=== PATIENT | male | born 1970 | race Caucasian/White ===

== ENCOUNTER 2018-07-04 11:12 | Inpatient (IN) | payer BC, OTHER ==
[2018-07-04 11:39] LABS: Glucose,Whole Blood 377 mg/dL (75-99)
[2018-07-04] MEDS ORDERED: SODIUM CHLORIDE 0.9% 500 ML 500 ML IV STA (11:40)
--- NOTE | 2018-07-04 11:47 | ED ---
General Adult HPI - General Chief complaint: Syncope Stated complaint: syncope, facial injury Time Seen by Provider: 07/04/18 11:28 Source: patient, RN notes reviewed, old records reviewed Mode of arrival: wheelchair Limitations: no limitations - History of Present Illness Initial comments: 47-year-old male presents for evaluation of syncopal episode. Patient states he began feeling lightheaded approximately one hour prior to presentation, he lost consciousness striking his nose and face on a boat trailer. States he regained consciousness shortly thereafter. Denies any chest pain. Denies dyspnea. Denies any preceding palpitations or chest pain. Patient states he has had one similar episode of this in the past several months prior. He states that this morning he had some mild nausea however he ate a normal breakfast. No vomiting. No fever or chills. No cough. Patient has history of diabetes and he is a current smoker. No known history of CAD. - Related Data Home Medications Medication Instructions Recorded Confirmed Lisinopril [Prinivil] 20 mg PO BID 03/27/14 07/04/18 Minoxidil [Loniten] 2.5 mg PO DAILY 06/02/16 07/04/18 Triamterene/Hydrochlorothiazid 1 tab PO DAILY 06/02/16 07/04/18 [Maxzide 37.5-25] cloNIDine HCL [Catapres] 0.2 mg PO BID 06/02/16 07/04/18 glipiZIDE [Glucotrol] 10 mg PO AC-BID 06/02/16 07/04/18 metFORMIN HCL [Glucophage] 1,000 mg PO AC-BID 06/02/16 07/04/18 Carvedilol 25 mg PO BID 06/03/16 07/04/18 Acetaminophen Tab [Tylenol Tab] 650 mg PO Q4H PRN 07/04/18 07/04/18 Canagliflozin [Invokana] 100 mg PO DAILY 07/04/18 07/04/18 Ibuprofen [Motrin Ib] 400 mg PO Q6H PRN 07/04/18 07/04/18 Naproxen Sodium [Aleve] 220 mg PO DAILY PRN 07/04/18 07/04/18 Omeprazole [PriLOSEC] 20 mg PO AC-BID 07/04/18 07/04/18 Allergies Allergy/AdvReac Type Severity Reaction Status Date / Time vancomycin Allergy Unknown Verified 07/04/18 12:06 Review of Systems ROS Statement: Those systems with pertinent positive or pertinent negative responses have been documented in the HPI. ROS Other: All systems not noted in ROS Statement are negative. Past Medical History Past Medical History: Chest Pain / Angina, Diabetes Mellitus, GERD/Reflux, Hypertension Additional Past Medical History / Comment(s): HIATAL HERNIA, KIDNEY STONE History of Any Multi-Drug Resistant Organisms: MRSA Date of last positivie culture/infection: 2013 MDRO Source:: axilla Past Surgical History: Appendectomy, Cholecystectomy, Heart Catheterization, Orthopedic Surgery Additional Past Surgical History / Comment(s): RENAL ANGIOGRAM 2005, LT WRIST TENDON REPAIR 2013,RT ROTATOR CUFF REPAIR,HEART CATH 2005 Past Anesthesia/Blood Transfusion Reactions: No Reported Reaction Past Psychological History: No Psychological Hx Reported Smoking Status: Current every day smoker Past Alcohol Use History: Occasional Past Drug Use History: None Reported - Past Family History Father Family Medical History: Diabetes Mellitus, Hypertension Mother Family Medical History: Cancer, Hypertension Additional Family Medical History / Comment(s): LUNG CANCER(NON SMOKER) General Exam Limitations: no limitations General appearance: alert, in no apparent distress Head exam: Present: atraumatic, normocephalic Eye exam: Present: normal appearance, PERRL ENT exam: Present: other (Abrasion and skin tear on the bridge of the nose) Neck exam: Present: normal inspection, full ROM Respiratory exam: Present: normal lung sounds bilaterally. Absent: respiratory distress, wheezes Cardiovascular Exam: Present: regular rate, normal rhythm GI/Abdominal exam: Present: soft. Absent: distended, tenderness Extremities exam: Present: normal inspection, normal capillary refill. Absent: pedal edema Neurological exam: Present: alert, oriented X3, CN II-XII intact. Absent: motor sensory deficit Psychiatric exam: Present: normal affect, normal mood Skin exam: Present: warm, dry. Absent: cyanosis, diaphoretic Course Vital Signs 07/04/18 11:16 Temperature 98.2 F Pulse Rate 69 Respiratory 20 Rate Blood Pressure 162/113 O2 Sat by Pulse 98 Oximetry - Reevaluation(s) Reevaluation #1: 07/04/18 1140 Cardiology paged regarding EKG changes. EKG Findings - EKG Comments: EKG Findings:: EKG obtained at 1124, normal sinus rhythm, incomplete right bundle branch, ST segment depression and T-wave inversion in leads 1, aVL, no ST segment elevation, rate of 71, KS interval 152, QRS duration 108, QTC 445. Repeat EKG obtained at 1310 normal sinus rhythm persistent T-wave inversion and ST segment depression in aVL and lead 1, there is no ST segment elevation, rate of 63, KS interval 150, QRS duration 106, QTC 444 Procedures - Laceration Laceration #1 Consent Obtained: verbal consent Time Out Performed: Yes Indication: laceration Site: face Description: linear Anesthetic Used: lidocaine 1% Anesthesia Technique: local infiltration Pre-repair: wound explored, irrigated extensively, deep structures intact Type of Sutures: nylon Size of Sutures: 6-0 Number of Sutures: 3 Technique: simple, interrupted Patient Tolerated Procedure: well Medical Decision Making - Medical Decision Making 47-year-old male presenting with syncopal episode and head injury. Head CT is obtained, negative for intracranial hemorrhage, there is a nondisplaced nasal bone fracture. Patient given IV antibiotics. He states his tetanus is up-to- date. Laceration is repaired in the emergency department. Patient has complaints only of some pain at the site of injury. Denies any preceding chest pain, dyspnea, or palpitations. EKG obtained in the emergency department is concerning for ischemia, there is ST segment depression and T-wave inversion. This is repeated in the emergency department and is stable. Chest x-ray negative for any acute cardiopulmonary disease. Patient's laboratory studies reveal normal white blood cell count, stable hemoglobin, elevated glucose. Initial troponin is 0.0-4. Patient's EKG changes are concerning as they are new compared to previous EKG in 2014. Patient is a current smoker and has history diabetes and hypertension. He will be started on heparin, awaiting further troponin testing and cardiology evaluation. Syncope is concerning cardiogenic causes. Diagnosis: Syncope, nasal bone fracture, nasal laceration. - Lab Data Result diagrams: 07/04/18 11:35 07/04/18 11:35 Lab Results 07/04/18 07/04/18 07/04/18 Range/Units 11:29 11:35 11:35 WBC 7.9 (3.8-10.6) k/uL RBC 6.11 H (4.30-5.90) m/uL Hgb 17.2 (13.0-17.5) gm/dL Hct 53.9 H (39.0-53.0) % MCV 88.2 (80.0-100.0) fL MCH 28.1 (25.0-35.0) pg MCHC 31.9 (31.0-37.0) g/dL RDW 13.7 (11.5-15.5) % Plt Count 217 (150-450) k/uL Neutrophils % 77 % Lymphocytes % 12 % Monocytes % 5 % Eosinophils % 3 % Basophils % 1 % Neutrophils # 6.0 (1.3-7.7) k/uL Lymphocytes # 1.0 (1.0-4.8) k/uL Monocytes # 0.4 (0-1.0) k/uL Eosinophils # 0.2 (0-0.7) k/uL Basophils # 0.1 (0-0.2) k/uL PT (9.0-12.0) sec INR (<1.2) APTT (22.0-30.0) sec Sodium (137-145) mmol/L Potassium (3.5-5.1) mmol/L Chloride (98-107) mmol/L Carbon Dioxide (22-30) mmol/L Anion Gap mmol/L BUN (9-20) mg/dL Creatinine (0.66-1.25) mg/dL Est GFR (CKD-EPI)AfAm (>60 ml/min/1.73 sqM) Est GFR (CKD-EPI)NonAf (>60 ml/min/1.73 sqM) Glucose (74-99) mg/dL POC Glucose (mg/dL) 377 H (75-99) mg/dL POC Glu [employer] ID Trini Munson Calcium (8.4-10.2) mg/dL Magnesium (1.6-2.3) mg/dL Total Bilirubin (0.2-1.3) mg/dL AST (17-59) U/L ALT (21-72) U/L Alkaline Phosphatase (38-126) U/L Total Creatine Kinase 98 (55-170) U/L CK-MB (CK-2) 4.3 H (0.0-2.4) ng/mL CK-MB (CK-2) Rel Index 4.4 Troponin I 0.024 (0.000-0.034) ng/mL Total Protein (6.3-8.2) g/dL Albumin (3.5-5.0) g/dL 07/04/18 07/04/18 Range/Units 11:35 11:35 WBC (3.8-10.6) k/uL RBC (4.30-5.90) m/uL Hgb (13.0-17.5) gm/dL Hct (39.0-53.0) % MCV (80.0-100.0) fL MCH (25.0-35.0) pg MCHC (31.0-37.0) g/dL RDW (11.5-15.5) % Plt Count (150-450) k/uL Neutrophils % % Lymphocytes % % Monocytes % % Eosinophils % % Basophils % % Neutrophils # (1.3-7.7) k/uL Lymphocytes # (1.0-4.8) k/uL Monocytes # (0-1.0) k/uL Eosinophils # (0-0.7) k/uL Basophils # (0-0.2) k/uL PT 9.6 (9.0-12.0) sec INR 1.0 (<1.2) APTT 22.6 (22.0-30.0) sec Sodium 140 (137-145) mmol/L Potassium 4.2 (3.5-5.1) mmol/L Chloride 101 (98-107) mmol/L Carbon Dioxide 27 (22-30) mmol/L Anion Gap 12 mmol/L BUN 23 H (9-20) mg/dL Creatinine 0.97 (0.66-1.25) mg/dL Est GFR (CKD-EPI)AfAm >90 (>60 ml/min/1.73 sqM) Est GFR (CKD-EPI)NonAf >90 (>60 ml/min/1.73 sqM) Glucose 394 H (74-99) mg/dL POC Glucose (mg/dL) (75-99) mg/dL POC Glu [employer] Operator ID Calcium 9.9 (8.4-10.2) mg/dL Magnesium 1.8 (1.6-2.3) mg/dL Total Bilirubin 0.9 (0.2-1.3) mg/dL AST 19 (17-59) U/L ALT 20 L (21-72) U/L Alkaline Phosphatase 61 (38-126) U/L Total Creatine Kinase (55-170) U/L CK-MB (CK-2) (0.0-2.4) ng/mL CK-MB (CK-2) Rel Index Troponin I (0.000-0.034) ng/mL Total Protein 7.3 (6.3-8.2) g/dL Albumin 4.4 (3.5-5.0) g/dL Disposition Clinical Impression: Syncope Disposition: ADMITTED IP TO THIS HOSP Condition: Stable Is patient prescribed a controlled substance at d/c from ED?: No Referrals: Anuel Peters MD [Primary Care Provider] - 1-2 days Decision to Admit Reason: Admit from EC Decision Date: 07/04/18 Decision Time: 14:03
[2018-07-04 12:06] LABS: Basophils # (A) 0.1 k/uL (0-0.2); Basophils % (A) 1 %; Eosinophils # (A) 0.2 k/uL (0-0.7); Eosinophils % (A) 3 %; HCT 53.9 % (39.0-53.0); HGB 17.2 gm/dL (13.0-17.5); Lymphocytes % (A) 12 %; MCH 28.1 pg (25.0-35.0); MCHC 31.9 g/dL (31.0-37.0); MCV 88.2 fL (80.0-100.0); Mean Platelet Volume 7.8; Monocytes # (A) 0.4 k/uL (0-1.0); Monocytes % (A) 5 %; Neutrophils % (A) 77 %; Platelet Count 217 k/uL (150-450); RBC 6.11 m/uL (4.30-5.90); RDW 13.7 % (11.5-15.5); WBC 7.9 k/uL (3.8-10.6)
[2018-07-04 12:09] LABS: ALT 20 U/L (21-72); AST 19 U/L (17-59); Albumin 4.4 g/dL (3.5-5.0); Alkaline Phosphatase 61 U/L (38-126); Anion Gap 12 mmol/L; Blood Urea Nitrogen 23 mg/dL (9-20); Calcium 9.9 mg/dL (8.4-10.2); Carbon Dioxide 27 mmol/L (22-30); Chloride 101 mmol/L (98-107); Glucose 394 mg/dL (74-99); Magnesium 1.8 mg/dL (1.6-2.3); Potassium 4.2 mmol/L (3.5-5.1); Sodium 140 mmol/L (137-145); Total Bilirubin 0.9 mg/dL (0.2-1.3); Total Protein 7.3 g/dL (6.3-8.2)
[2018-07-04 12:23] LABS: Partial Thromboplastin Time 22.6 sec (22.0-30.0); Prothrombin Time 9.6 sec (9.0-12.0)
[2018-07-04 12:34] LABS: Creatine Kinase MB 4.3 ng/mL (0.0-2.4); Troponin I 0.024 ng/mL (0.000-0.034)
[2018-07-04] MEDS ORDERED: ASPIRIN 325 MG TAB PO STA (12:35)
--- NOTE | 2018-07-04 12:43 | XR ---
EXAMINATION TYPE: XR chest 2V DATE OF EXAM: 07/04/2018 COMPARISON: 12/22/2013 TECHNIQUE: PA and lateral views submitted. HISTORY: Syncope FINDINGS: The lungs are clear and there is no pneumothorax, pleural effusion, or focal pneumonia. Hypertrophi c and degenerative changes of the spine noted. Surgical clips in the abdomen seen. IMPRESSION: 1. No acute process.
--- NOTE | 2018-07-04 12:47 | CT ---
EXAMINATION TYPE: CT brain abdi byrd DATE OF EXAM: 07/04/2018 COMPARISON: None HISTORY: fall after syncope CT DLP: 1454 mGycm, Automated exposure control for dose reduction was used. CONTRAST: Patient injected with 0 mL of Isovue 300. CT of the brain is performed utilizing 3 mm thick sections through the posterior fossa and 3 mm thick sections through the remaining calvarium. Study is performed within 24 hours of arrival to the hospital. No abnormal hyperdensity is present to suggest an acute intracranial hemorrhage. No mass lesion is evident. No acute infarcts are evident. Ventricles and sulci are appropriate for the patient age. There is a small retention cyst within the inferior left maxillary sinus. Left septal deviation of th e left septal spur is noted. Remaining paranasal sinuses within the [id number] appear clear. Masto id air cells are clear. Nondisplaced nasal bone fractures appear to be present with adjacent subcutaneous emphysema at the br idge of the nose. No additional fractures are identified. IMPRESSIONS: 1. No acute intracranial process. 2. Nondisplaced nasal bone fractures. CT cervical spine. COMPARISON: None CT of the cervical spine is performed in the axial plane at 2 mm thick sections. Reconstructed image s in the coronal, and sagittal plane are reviewed on the computer. No acute fractures are evident. Vertebral body alignment is normal. Disc heights are preserved. Some mild bulging is present C3-4. No stenosis is present. There may be s ome left paracentral disc bulging C5-C6. Correlate with radicular symptoms. Vertebral body heights are preserved. No spinal canal stenosis is evident. No neural foraminal stenosis is evident. IMPRESSIONS: 1. No acute posttraumatic changes cervical spine. 2. Some mild disc bulging C3-4 and C5-6 discussed above.
[2018-07-04] MEDS ORDERED: HEPARIN SODIUM,PORCINE 5,000 UNIT/ML 1 ML VIAL IV PRN (12:53)
[2018-07-04] MEDS ORDERED: HEPARIN SODIUM,PORCINE 5,000 UNIT/ML 1 ML VIAL IV ONE (12:53)
[2018-07-04] MEDS ORDERED: HEPARIN SOD,PORK IN 0.45% NACL 25,000 UNIT in 0.45% NACL 1 500ML.BAG IV SCH (13:00)
[2018-07-04] MEDS ORDERED: LIDOCAINE 1% INJ 10MG/ML (20 ML MDV) SQ ONE (13:01)
[2018-07-04] MEDS ORDERED: MORPHINE SULFATE 4 MG/ML SYRINGE IVP STA (13:32)
[2018-07-04] MEDS ORDERED: ceFAZolin 1,000 MG in DEXTROSE/WATER 1 50ML.BAG IVPB STA (13:53)
[2018-07-04] MEDS ORDERED: IBUPROFEN 400 MG TAB PO PRN (13:57)
[2018-07-04] MEDS ORDERED: NALOXONE 0.4 MG/ML 1 ML VIAL IV PRN (13:58)
--- NOTE | 2018-07-04 14:46 | P.HPIM ---
History of Present Illness This is a pleasant 47 years old male with past medical history of diabetes mellitus, coronary artery disease, hypertension, GERD, hiatal hernia and kidney stone, status post cardiac cath. He sees Dr. Arguello the outpatient setting. Who presents because of syncope/presyncope. 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 However patient denies chest pain. No dyspnea.. Patient has similar episode last February when he was in [place] for his son graduation he felt the same think. Patient has history of diabetes mellitus, hypertension and his current smoker about 1 pack and half per day. He is been evaluated by couple years ago when he had infection with MRSA in his left armpit at that time he has some chest discomfort and he has negative stress test. He has remote history of cardiac cath at age 45 which was negative as per patient. Drinks alcohol occasionally. No illicit drugs. This was from through abrasions on the right forearms right shoulder. Oral wound and the pouch with the notes Chest x-ray: This. CT of the head and neck. No acute intracranial process, nondisplaced nasal bone fractures Review of Systems CONSTITUTIONAL: No fever, no malaise, no fatigue. HEENT: No recent visual problems or hearing problems. Denied any sore throat. CARDIOVASCULAR: No orthopnea, PND, no palpitations, no syncope. PULMONARY: No shortness of breath, no cough, no hemoptysis. GASTROINTESTINAL: No diarrhea, no nausea, no vomiting, no abdominal pain. Normoactive bowel sounds. NEUROLOGICAL: No headaches, no weakness, no numbness. HEMATOLOGICAL: Denies any bleeding or petechiae. GENITOURINARY: Denies any burning micturition, frequency, or urgency. MUSCULOSKELETAL/RHEUMATOLOGICAL: Denies any joint pain, swelling, or any muscle pain. ENDOCRINE: Denies any polyuria or polydipsia. Past Medical History Past Medical History: Chest Pain / Angina, Diabetes Mellitus, GERD/Reflux, Hypertension Additional Past Medical History / Comment(s): HIATAL HERNIA, KIDNEY STONE History of Any Multi-Drug Resistant Organisms: MRSA Date of last positivie culture/infection: 2013 MDRO Source:: axilla Past Surgical History: Appendectomy, Cholecystectomy, Heart Catheterization, Orthopedic Surgery Additional Past Surgical History / Comment(s): RENAL ANGIOGRAM 2005, LT WRIST TENDON REPAIR 2013,RT ROTATOR CUFF REPAIR,HEART CATH 2005 Past Anesthesia/Blood Transfusion Reactions: No Reported Reaction Past Psychological History: No Psychological Hx Reported Smoking Status: Current every day smoker Past Alcohol Use History: Occasional Past Drug Use History: None Reported - Past Family History Father Family Medical History: Diabetes Mellitus, Hypertension Mother Family Medical History: Cancer, Hypertension Additional Family Medical History / Comment(s): LUNG CANCER(NON SMOKER) Medications and Allergies Home Medications Medication Instructions Recorded Confirmed Type Lisinopril [Prinivil] 20 mg PO BID 03/27/14 07/04/18 History Minoxidil [Loniten] 2.5 mg PO DAILY 06/02/16 07/04/18 History Triamterene/Hydrochlorothiazid 1 tab PO DAILY 06/02/16 07/04/18 History [Maxzide 37.5-25] cloNIDine HCL [Catapres] 0.2 mg PO BID 06/02/16 07/04/18 History glipiZIDE [Glucotrol] 10 mg PO AC-BID 06/02/16 07/04/18 History metFORMIN HCL [Glucophage] 1,000 mg PO AC-BID 06/02/16 07/04/18 History Carvedilol 25 mg PO BID 06/03/16 07/04/18 History Acetaminophen Tab [Tylenol Tab] 650 mg PO Q4H PRN 07/04/18 07/04/18 History Canagliflozin [Invokana] 100 mg PO DAILY 07/04/18 07/04/18 History Ibuprofen [Motrin Ib] 400 mg PO Q6H PRN 07/04/18 07/04/18 History Naproxen Sodium [Aleve] 220 mg PO DAILY PRN 07/04/18 07/04/18 History Omeprazole [PriLOSEC] 20 mg PO AC-BID 07/04/18 07/04/18 History Allergies Allergy/AdvReac Type Severity Reaction Status Date / Time vancomycin Allergy Unknown Verified 07/04/18 12:06 Physical Exam Vitals: Vital Signs Temp Pulse Resp BP Pulse Ox 07/04/18 11:16 98.2 F 69 20 162/113 98 Intake and Output 07/03/18 07/04/18 07/04/18 22:59 06:59 14:59 Other: Weight 97.522 kg GENERAL: The patient is alert and oriented x3, not in any acute distress. Well developed, well nourished. -HEENT: Pupils are round and equally reacting to light. EOMI. No scleral icterus. No conjunctival pallor. Normocephalic, atraumatic. No pharyngeal erythema. No thyromegaly. samll wound on the nasal bridge, CARDIOVASCULAR: S1 and S2 present. No murmurs, rubs, or gallops. PULMONARY: Chest is clear to auscultation, no wheezing or crackles. ABDOMEN: Soft, nontender, nondistended, normoactive bowel sounds. No palpable organomegaly. MUSCULOSKELETAL: No joint swelling or deformity. -EXTREMITIES: No cyanosis, clubbing, or pedal edema. Small abrasions in the right forearm and right shoulder. No bleeding no cellulitis. NEUROLOGICAL: Gross neurological examination did not reveal any focal deficits. SKIN: No rashes. Results CBC & Chem 7: 07/04/18 11:35 07/04/18 11:35 Labs: Abnormal Lab Results - Last 24 Hours (Table) 07/04/18 07/04/18 07/04/18 Range/Units 11:29 11:35 11:35 RBC 6.11 H (4.30-5.90) m/uL Hct 53.9 H (39.0-53.0) % BUN (9-20) mg/dL Glucose (74-99) mg/dL POC Glucose (mg/dL) 377 H (75-99) mg/dL ALT (21-72) U/L CK-MB (CK-2) 4.3 H (0.0-2.4) ng/mL 07/04/18 Range/Units 11:35 RBC (4.30-5.90) m/uL Hct (39.0-53.0) % BUN 23 H (9-20) mg/dL Glucose 394 H (74-99) mg/dL POC Glucose (mg/dL) (75-99) mg/dL ALT 20 L (21-72) U/L CK-MB (CK-2) (0.0-2.4) ng/mL Assessment and Plan Assessment: Syncope, rule out cardiac cause nondisplaced nasal bone fractures Diabetes mellitus Hypertension History of coronary artery disease GERD History of MRSA infection in left armpit about 2 yrs ago Plan: This is a pleasant 47 years old male who presents with syncope. We'll admit the patient's with asking for cardiology evaluation. Continue with heparin drip. Monitor lytes and labs especially troponins. Continue with telemetry. With same treatment. Continue supportive treatment. Resume home medications. Monitor vitals and labs. GI and DVT prophylaxis. Further recommendations based on the clinical course with the patient DVT prophylaxis: He is ready on heparin drip GI prophylaxis. Pepcid PT/OT: Pending Prognosis is guarded
[2018-07-04] MEDS: SODIUM CHLORIDE 0.9% 1,000 ML IV SCH (15:26)
[2018-07-04 16:06] LABS: Glucose,Whole Blood 257 mg/dL (75-99)
[2018-07-04] MEDS: CARVEDILOL 12.5 MG TAB PO SCH (16:51)
[2018-07-04] MEDS: metFORMIN 500 MG TAB PO SCH (16:52)
[2018-07-04] MEDS: glipiZIDE 10 MG TAB PO SCH (16:52)
[2018-07-04] MEDS: MORPHINE SULFATE 4 MG/ML SYRINGE IV PRN ×2 (17:29→21:33)
[2018-07-04 18:46] LABS: Creatine Kinase MB 4.7 ng/mL (0.0-2.4); Troponin I 0.018 ng/mL (0.000-0.034)
[2018-07-04] MEDS: ACETAMINOPHEN TAB 325 MG TAB PO PRN (19:54)
[2018-07-04] MEDS: LISINOPRIL 20 MG TAB PO SCH (19:55)
[2018-07-04] MEDS: ONDANSETRON 4 MG/2 ML VIAL IVP PRN (20:09)
[2018-07-04 20:45] LABS: Glucose,Whole Blood 252 mg/dL (75-99)
[2018-07-04] MEDS: cloNIDine HCL 0.2 MG TAB PO SCH (21:32)
[2018-07-04] MEDS: INSULIN ASPART 100 UNIT/ML 1 ML 10 ML VIAL SQ SCH (21:32)
[2018-07-05] MEDS ORDERED: KETOROLAC 30 MG/ML 1 ML VIAL IVP SCH
[2018-07-05 00:13] LABS: Creatine Kinase MB 3.5 ng/mL (0.0-2.4); Troponin I 0.015 ng/mL (0.000-0.034)
[2018-07-05] MEDS: MORPHINE SULFATE 4 MG/ML SYRINGE IV PRN ×6 (01:56→23:04)
[2018-07-05 04:34] LABS: Basophils # (A) 0.1 k/uL (0-0.2); Basophils % (A) 1 %; Eosinophils # (A) 0.2 k/uL (0-0.7); Eosinophils % (A) 3 %; HCT 46.8 % (39.0-53.0); Lymphocytes # (A) 1.1 k/uL (1.0-4.8); Lymphocytes % (A) 16 %; MCV 87.5 fL (80.0-100.0); Mean Platelet Volume 7.6; Monocytes # (A) 0.3 k/uL (0-1.0); Monocytes % (A) 5 %; Neutrophils # (A) 4.7 k/uL (1.3-7.7); Neutrophils % (A) 73 %; Platelet Count 195 k/uL (150-450); RBC 5.35 m/uL (4.30-5.90); RDW 13.7 % (11.5-15.5); WBC 6.4 k/uL (3.8-10.6)
[2018-07-05 04:49] LABS: Anion Gap 6 mmol/L; Blood Urea Nitrogen 23 mg/dL (9-20); Calcium 8.6 mg/dL (8.4-10.2); Carbon Dioxide 27 mmol/L (22-30); Chloride 105 mmol/L (98-107); Glucose 232 mg/dL (74-99); Sodium 138 mmol/L (137-145)
[2018-07-05] MEDS: SODIUM CHLORIDE 0.9% 1,000 ML IV SCH ×2 (04:49→19:42)
[2018-07-05 06:10] LABS: Glucose,Whole Blood 185 mg/dL (75-99)
[2018-07-05] MEDS: INSULIN ASPART 100 UNIT/ML 1 ML 10 ML VIAL SQ SCH ×4 (06:26→21:05)
[2018-07-05] MEDS: glipiZIDE 10 MG TAB PO SCH ×2 (06:32→17:08)
[2018-07-05] MEDS: metFORMIN 500 MG TAB PO SCH ×2 (06:32→17:08)
[2018-07-05] MEDS: ONDANSETRON 4 MG/2 ML VIAL IVP PRN (06:33)
[2018-07-05] MEDS: KETOROLAC 30 MG/ML 1 ML VIAL IVP PRN ×2 (07:53→14:20)
[2018-07-05] MEDS ORDERED: MINOXIDIL 2.5 MG TAB PO SCH (09:00)
[2018-07-05] MEDS: CARVEDILOL 12.5 MG TAB PO SCH ×2 (09:11→18:37)
[2018-07-05] MEDS: cloNIDine HCL 0.2 MG TAB PO SCH ×2 (09:12→19:40)
[2018-07-05] MEDS: LISINOPRIL 20 MG TAB PO SCH ×2 (09:12→19:40)
[2018-07-05] MEDS: FAMOTIDINE 20 MG TAB PO SCH (09:12)
[2018-07-05] MEDS: TRIAMTERENE-HCTZ 37.5-25MG 1 EACH TAB PO SCH (09:13)
[2018-07-05] MEDS: (Canagliflozin [Invokana] 100 MG) PO SCH (09:24)
--- NOTE | 2018-07-05 10:15 | P.CRDCN ---
History of Present Illness History of present illness: This is Dr. Deluna dictating a consult on this patient The patient was interviewed and examined by me IMPRESSION / ASSESSMENT: At least 2 episodes of falls but not associated with loss of consciousness Symptoms associated with a sudden neck movement that induced a sudden brief spinning sensation History of hypertension on multiple medications and his blood pressure is still elevated despite carvedilol 25 mg twice daily, lisinopril 20 mg twice daily, minoxidil 2.5 mg daily, Maxide one tablet daily and clonidine 0.2 mg twice a day History of back problems and he takes lots of NSAIDs Abnormal ECG with ST depression and T-wave inversions in the lateral high lateral leads consistent with left ventricular hypertrophy 2-D echo shows left ventricular hypertrophy with preserved function No arrhythmias on telemetry. ECG does not show any evidence for delta waves, epsilon waves, Brugada morphology, QT abnormalities Diabetic type II for 10 years Likely noncardiac cause of fall most likely vertiginous in nature, definitely no loss of consciousness at the second episode PLAN: 2-D echo and Doppler study to assess cardiac structure and function and await final report Management of hypertension Minimize NSAID use. At this time I would increase the dose of clonidine to 0.2 mg 3 times a day present outpatient I would preferably switched to irbesartan instead of lisinopril HPI Patient presented with 2 episodes of falls that were deemed to be syncopal spells. However on detailed questioning he did not experience loss of consciousness at least on the second episode The first episode occurred about a week or 2 back when he dived into a pool, made a sudden neck movement as he entered the pool, head and arms first and then found himself at the bottom of the pool for no apparent reason. The next episode brought him to the hospital He lifted both his arms up to paired a T-shirt, Marie sideways neck movement and found himself falling down face first, uncontrollably. As he was falling down he set himself that he was going to strike against a hard object and that it would hurt. It did and he suffered a facial injury in the process. No loss of consciousness He had had a breakfast on both occasions, he was not dehydrated at that time Later on his blood sugar was also normal Blood pressure was mildly elevated between 140-1 60 mmHg upon admission He is not orthostatic Most importantly when he tried to show me how he would move his neck to induce the issue he had a severe dizzy spell right in front of me while sitting at the edge of the bed I asked her telemetry to look through his telemetry strips from this morning between 8 and 9:00 to see if he had any sudden bradycardia to see if there was any evidence to support carotid hypersensitivity ROS: No fever chills or rigors, no cough, phlegm or expectoration, no nausea, vomiting or diarrhea, no hematuria, dysuria, no musculoskeletal complaints, no strokes or seizures, no skin lesions. EXAMINATION Afebrile 97F, pulse rate in the 50s, blood pressure 127/85 mmHg Supine blood pressure 150/92 mmHg, standing 166/106 mmHg Normal heart sounds no murmurs no gallops no rub No carotid bruits no JVD Breath sounds are clear Abdomen is soft nontender Extremities warm no edema REVIEW OF LABS, ECG Normal CBC normal hemoglobin and normal white count normal electrolytes normal kidney function elevated glucose levels Normal cardiac enzymes I had his ECG repeated once again and it shows sinus rhythm with an incomplete right bundle branch block pattern [address] depression with T-wave inversions in the high lateral leads with 1.[address] elevation in lead 3 Normal ID no delta waves no clear-cut epsilon waves normal QT interval no Brugada morphology evident on ECG, serial Past Medical History Past Medical History: Chest Pain / Angina, Diabetes Mellitus, GERD/Reflux, Hypertension Additional Past Medical History / Comment(s): NIDDM type II, hiatal hernia, nephrolithiasis, chronic low baci pain, bilateral leg numbness, current callous R great toe, past left olecranon bursitis. History of Any Multi-Drug Resistant Organisms: MRSA Date of last positivie culture/infection: 2013 MDRO Source:: L axilla Past Surgical History: Appendectomy, Cholecystectomy, Heart Catheterization, Orthopedic Surgery Additional Past Surgical History / Comment(s): RENAL ANGIOGRAM 2006 for HTN, cardiac cath 2005, LT WRIST TENDON REPAIR 2013, RT ROTATOR CUFF REPAIR, bilateral knee arthroscopies, I&D L axillae Past Anesthesia/Blood Transfusion Reactions: No Reported Reaction Smoking Status: Current every day smoker - Past Family History Father Family Medical History: Diabetes Mellitus, Hypertension Mother Family Medical History: Cancer, Hypertension Additional Family Medical History / Comment(s): LUNG CANCER(NON SMOKER) Medications and Allergies Home Medications Medication Instructions Recorded Confirmed Type Lisinopril [Prinivil] 20 mg PO BID 03/27/14 07/04/18 History Minoxidil [Loniten] 2.5 mg PO DAILY 06/02/16 07/04/18 History Triamterene/Hydrochlorothiazid 1 tab PO DAILY 06/02/16 07/04/18 History [Maxzide 37.5-25] cloNIDine HCL [Catapres] 0.2 mg PO BID 06/02/16 07/04/18 History glipiZIDE [Glucotrol] 10 mg PO AC-BID 06/02/16 07/04/18 History metFORMIN HCL [Glucophage] 1,000 mg PO AC-BID 06/02/16 07/04/18 History Carvedilol 25 mg PO BID 06/03/16 07/04/18 History Acetaminophen Tab [Tylenol Tab] 650 mg PO Q4H PRN 07/04/18 07/04/18 History Canagliflozin [Invokana] 100 mg PO DAILY 07/04/18 07/04/18 History Ibuprofen [Motrin Ib] 400 mg PO Q6H PRN 07/04/18 07/04/18 History Naproxen Sodium [Aleve] 220 mg PO DAILY PRN 07/04/18 07/04/18 History Omeprazole [PriLOSEC] 20 mg PO AC-BID 07/04/18 07/04/18 History Allergies Allergy/AdvReac Type Severity Reaction Status Date / Time vancomycin Allergy Unknown Verified 07/04/18 12:06 Physical Exam Vitals: Vital Signs Temp Pulse Pulse Pulse Pulse Pulse Pulse 07/05/18 09:40 50 L 07/05/18 08:25 68 60 50 L 07/05/18 07:39 97.0 F L 50 L 07/05/18 04:00 97.7 F 54 L 07/04/18 23:24 97 F L 58 L 07/04/18 20:00 97.1 F L 61 07/04/18 16:00 97.8 F 57 L 07/04/18 14:26 97 F L 62 07/04/18 11:16 98.2 F 69 Resp BP BP BP BP BP BP 07/05/18 09:40 07/05/18 08:25 165/103 166/106 150/92 07/05/18 07:39 18 127/85 07/05/18 04:00 16 104/59 07/04/18 23:24 16 119/71 07/04/18 20:00 16 128/81 07/04/18 16:00 16 149/97 07/04/18 14:26 18 143/91 07/04/18 11:16 20 162/113 Pulse Ox 07/05/18 09:40 07/05/18 08:25 07/05/18 07:39 97 07/05/18 04:00 96 07/04/18 23:24 97 07/04/18 20:00 96 07/04/18 16:00 99 07/04/18 14:26 100 07/04/18 11:16 98 Intake and Output 07/04/18 07/05/18 07/05/18 22:59 06:59 14:59 Intake Total 447 0 Balance 447 0 Intake: Intake, IV Titration 225 Amount Sodium Chloride 0.9% 1, 225 000 ml @ 75 mls/hr IV . [id number] [facility] Rx#:[id number] Oral 222 0 Other: # Voids 1 1 Weight 98.7 kg 99.4 kg Results 07/05/18 04:08 07/05/18 04:08 Cardiac Enzymes 07/04/18 07/04/18 07/04/18 Range/Units 11:35 11:35 17:29 AST 19 (17-59) U/L CK-MB (CK-2) 4.3 H 4.7 H (0.0-2.4) ng/mL Troponin I 0.024 0.018 (0.000-0.034) ng/mL 07/04/18 Range/Units 23:02 AST (17-59) U/L CK-MB (CK-2) 3.5 H (0.0-2.4) ng/mL Troponin I 0.015 (0.000-0.034) ng/mL Coagulation 07/04/18 07/04/18 07/05/18 Range/Units 11:35 20:10 04:08 PT 9.6 (9.0-12.0) sec APTT 22.6 26.3 36.4 H (22.0-30.0) sec CBC 07/04/18 07/05/18 Range/Units 11:35 04:08 WBC 7.9 6.4 (3.8-10.6) k/uL RBC 6.11 H 5.35 (4.30-5.90) m/uL Hgb 17.2 15.0 (13.0-17.5) gm/dL Hct 53.9 H 46.8 (39.0-53.0) % Plt Count 217 195 (150-450) k/uL Comprehensive Metabolic Panel 07/04/18 07/05/18 Range/Units 11:35 04:08 Sodium 140 138 (137-145) mmol/L Potassium 4.2 4.0 (3.5-5.1) mmol/L Chloride 101 105 (98-107) mmol/L Carbon Dioxide 27 27 (22-30) mmol/L BUN 23 H 23 H (9-20) mg/dL Creatinine 0.97 1.03 (0.66-1.25) mg/dL Glucose 394 H 232 H (74-99) mg/dL Calcium 9.9 8.6 (8.4-10.2) mg/dL AST 19 (17-59) U/L ALT 20 L (21-72) U/L Alkaline Phosphatase 61 (38-126) U/L Total Protein 7.3 (6.3-8.2) g/dL Albumin 4.4 (3.5-5.0) g/dL Current Medications Generic Name Dose Route Start Last Admin Trade Name Freq PRN Reason Stop Dose Admin Acetaminophen 650 mg 07/04/18 13:57 07/04/18 19:54 Tylenol Tab PO 650 mg Q4H PRN Administration Mild Pain Carvedilol 25 mg 07/04/18 17:30 07/05/18 09:11 Coreg PO 25 mg AC-BID [facility] Administration Clonidine 0.2 mg 07/04/18 21:00 07/05/18 09:12 Catapres PO 0.2 mg BID [facility] Administration Famotidine 20 mg 07/05/18 09:00 07/05/18 09:12 Pepcid PO 20 mg DAILY [facility] Administration Glipizide 10 mg 07/04/18 17:30 07/05/18 06:32 Glucotrol PO 10 mg AC-BID [facility] Administration Sodium Chloride 1,000 mls @ 75 mls/hr 07/04/18 14:00 07/05/18 04:49 Saline 0.9% IV Not Given .[id number] [facility] Insulin Aspart 0 unit 07/04/18 21:20 07/05/18 06:26 Novolog SQ Not Given ACHS [facility] Protocol Ketorolac Tromethamine 15 mg 07/04/18 21:23 07/05/18 07:53 Toradol IVP 07/08/18 21:21 15 mg Q6HR PRN Administration Mild to Moderate Pain Lisinopril 20 mg 07/04/18 21:00 07/05/18 09:12 Zestril PO 20 mg BID [facility] Administration Metformin HCl 1,000 mg 07/04/18 17:30 07/05/18 06:32 Glucophage PO 1,000 mg AC-BID [facility] Administration Minoxidil 2.5 mg 07/05/18 09:00 07/05/18 09:13 Loniten PO 2.5 mg DAILY [facility] Administration Morphine Sulfate 4 mg 07/04/18 13:58 07/05/18 06:33 Morphine Sulfate (Inj) IV 4 mg Q4HR PRN Administration Severe Pain Naloxone HCl 0.2 mg 07/04/18 13:58 Narcan IV Q2M PRN Opioid Reversal (Canagliflozin [ 100 mg 07/05/18 09:00 07/05/18 09:24 Invokana] 100 Mg) PO Not Given DAILY [facility] Ondansetron HCl 4 mg 07/04/18 13:58 07/05/18 06:33 Zofran IVP 4 mg Q8HR PRN Administration Nausea And Vomiting Triamterene/HCTZ 1 each 07/05/18 09:00 07/05/18 09:13 Maxzide-25 PO 1 each DAILY [facility] Administration Intake and Output 07/04/18 07/05/18 07/05/18 22:59 06:59 14:59 Intake Total 447 0 Balance 447 0 Intake: Intake, IV Titration 225 Amount Sodium Chloride 0.9% 1, 225 000 ml @ 75 mls/hr IV . [id number] [facility] Rx#:[id number] Oral 222 0 Other: # Voids 1 1 Weight 98.7 kg 99.4 kg 07/05/18 04:08 07/05/18 04:08
[2018-07-05 11:15] LABS: Glucose,Whole Blood 293 mg/dL (75-99)
--- NOTE | 2018-07-05 11:20 | ECHOF ---
Referral Reason:chest pain MEASUREMENTS -------- HEIGHT: 190.5 cm WEIGHT: 99.3 kg BP: 127/85 RVIDd: 3.5 cm (< 3.3) IVSd: 1.1 cm (0.6 - 1.1) LVIDd: 5.4 cm (3.9 - 5.3) LVPWd: 1.2 cm (0.6 - 1.1) IVSs: 1.5 cm LVIDs: 3.7 cm LVPWs: 1.5 cm LAESV Index (A-L): 23.42 ml/m Ao Diam: 3.2 cm (2.0 - 3.7) AV Cusp: 2.1 cm (1.5 - 2.6) LA Diam: 4.3 cm (2.7 - 3.8) MV E Pete: 0.84 m/s MV DecT: 198 ms MV A Pete: 0.61 m/s MV E/A Ratio: 1.37 RAP: 5.00 mmHg RVSP: 17.14 mmHg MV EF SLOPE: 109.59 mm/s (70 - 150) MV EXCURSION: 2.02 cm (> 18.000) FINDINGS -------- Sinus rhythm. This was a technically good study. The left ventricular size is normal. There is mild concentric left ventricular hypertrophy. Overa ll left ventricular systolic function is normal with, an EF between 55 - 60 %. The right ventricle is mildly enlarged. Normal LA size by volume 22+/-6 ml/m2. The right atrium is normal in size. Aortic valve is trileaflet and is mildly thickened. There is no evidence of aortic regurgitation. There is no evidence of aortic stenosis. The mitral valve leaflets are mildly thickened. There is trace to mild mitral regurgitation. Trace tricuspid regurgitation present. Right ventricular systolic pressure is normal at < 35 mmHg. There is no evidence of pulmonary hypertension. Trace/mild (physiologic) pulmonic regurgitation. The aortic root size is normal. Normal inferior vena cava with normal inspiratory collapse consistent with estimated right atrial pre ssure of 5 mmHg. There is no pericardial effusion. CONCLUSIONS -------- 1. Sinus rhythm. 2. This was a technically good study. 3. The left ventricular size is normal. 4. There is mild concentric left ventricular hypertrophy. 5. Overall left ventricular systolic function is normal with, an EF between 55 - 60 %. 6. The right ventricle is mildly enlarged. 7. Normal LA size by volume 22+/-6 ml/m2. 8. Aortic valve is trileaflet and is mildly thickened. 9. The mitral valve leaflets are mildly thickened. 10. There is trace to mild mitral regurgitation. 11. Trace tricuspid regurgitation present. 12. Right ventricular systolic pressure is normal at < 35 mmHg. 13. There is no evidence of pulmonary hypertension. 14. Trace/mild (physiologic) pulmonic regurgitation. 15. The aortic root size is normal. 16. There is no pericardial effusion. COAT FINISHER: Hunter Zuniga RDCS
[2018-07-05 15:21] LABS: Hemoglobin A1C 12.4 % (4.0-6.0)
[2018-07-05 16:53] LABS: Glucose,Whole Blood 305 mg/dL (75-99)
[2018-07-05] MEDS: traMADol 50 MG TAB PO PRN (17:08)
[2018-07-05] MEDS: HEPARIN SODIUM,PORCINE 5,000 UNIT/ML 1 ML VIAL SQ SCH (19:40)
[2018-07-05 20:57] LABS: Glucose,Whole Blood 277 mg/dL (75-99)
[2018-07-06] MEDS: traMADol 50 MG TAB PO PRN (02:41)
[2018-07-06] MEDS: ONDANSETRON 4 MG/2 ML VIAL IVP PRN ×2 (02:41→12:41)
[2018-07-06] MEDS: MORPHINE SULFATE 4 MG/ML SYRINGE IV PRN ×3 (04:04→12:36)
[2018-07-06 05:36] LABS: Glucose,Whole Blood 204 mg/dL (75-99)
[2018-07-06] MEDS: glipiZIDE 10 MG TAB PO SCH ×2 (06:15→17:35)
[2018-07-06] MEDS: CARVEDILOL 12.5 MG TAB PO SCH ×2 (06:15→16:40)
[2018-07-06] MEDS: metFORMIN 500 MG TAB PO SCH ×2 (06:15→17:35)
[2018-07-06] MEDS: SODIUM CHLORIDE 0.9% 1,000 ML IV SCH (06:16)
[2018-07-06] MEDS: INSULIN ASPART 100 UNIT/ML 1 ML 10 ML VIAL SQ SCH ×4 (06:16→20:09)
[2018-07-06 06:46] LABS: Anion Gap 5 mmol/L; Blood Urea Nitrogen 24 mg/dL (9-20); Calcium 8.7 mg/dL (8.4-10.2); Carbon Dioxide 27 mmol/L (22-30); Chloride 106 mmol/L (98-107); Glucose 175 mg/dL (74-99); Sodium 138 mmol/L (137-145)
[2018-07-06] MEDS: cloNIDine HCL 0.2 MG TAB PO SCH ×2 (08:28→20:10)
[2018-07-06] MEDS: LISINOPRIL 20 MG TAB PO SCH ×2 (08:28→20:10)
[2018-07-06] MEDS: TRIAMTERENE-HCTZ 37.5-25MG 1 EACH TAB PO SCH (08:28)
[2018-07-06] MEDS: FAMOTIDINE 20 MG TAB PO SCH (08:28)
[2018-07-06] MEDS: HEPARIN SODIUM,PORCINE 5,000 UNIT/ML 1 ML VIAL SQ SCH ×2 (08:28→20:10)
[2018-07-06] MEDS: (Canagliflozin [Invokana] 100 MG) PO SCH (08:29)
[2018-07-06 11:21] VITALS: BMI 28.1
[2018-07-06 11:38] LABS: Glucose,Whole Blood 195 mg/dL (75-99)
[2018-07-06] MEDS ORDERED: HYDROcodone/APAP 5-325MG 1 EACH TAB PO PRN (16:19)
[2018-07-06] MEDS ORDERED: MECLIZINE 25 MG TAB PO PRN (16:21)
[2018-07-06 16:48] LABS: Glucose,Whole Blood 307 mg/dL (75-99)
--- NOTE | 2018-07-06 17:05 | P.PN ---
Subjective Progress Note Date: 07/06/18 Principal diagnosis: Syncope / Presyncope Mr. Gonzalez is a 37-year-old male with a past medical history of poorly controlled type 2 diabetes mellitus, coronary artery disease, hypertension, GERD , hiatal hernia, nephrolithiasis who follows with Dr. Arguello coming in with a chief complaint of syncope/presyncope. Patient states that he had a syncopal episode when he suddenly tried to grab patient and put it on. Had a fall , trying to balance himself, on his face hurting his nose shoulders and knees and also has a small cut on the right forearm. Patient states that this is the second episode that he has experienced in the past 2 months. Patient has poorly controlled type 2 diabetes mellitus with a hemoglobin A1c of 12.4. He does have a remote cardiac cath at age 45. He and is being currently evaluated by cardiology. Today the patient is sitting up in the bed appears to be no acute distress. On review of systems Constitutional: No fever chills or rigors Respiratory: No cough or difficulty in breathing GI: No abdominal pain. Patient complains of some nausea. No diarrhea or constipation Genitourinary: Denies dysuria or hematuria Patient's current medication list reviewed: Timolol, [place], Coreg, clonidine, famotidine, glipizide, sliding scale of insulin, Levemir, lisinopril, meclizine, metformin, N, zofran, maxzide. Objective - Vital Signs Vital signs: Vital Signs Temp 97.6 F 07/06/18 08:10 Pulse 56 L 07/06/18 16:21 Resp 16 07/06/18 16:21 BP 185/105 07/06/18 16:21 Pulse Ox 97 07/06/18 16:21 Intake & Output 07/05/18 07/06/18 07/06/18 18:59 06:59 18:59 Intake Total 600 600 240 Output Total 700 Balance -100 600 240 Weight 102.1 kg 102.1 kg Intake: Intake, IV Titration 600 Amount Sodium Chloride 0.9% 1, 600 000 ml @ 75 mls/hr IV . [id number] [facility] Rx#:[id number] Oral 600 240 Output: Urine 700 Other: # Voids 1 - Exam GENERAL: The patient is alert and oriented x3, not in any acute distress. Well developed, well nourished. -HEENT: Pupils are round and equally reacting to light. EOMI. No scleral icterus. No conjunctival pallor. Normocephalic, atraumatic. No pharyngeal erythema. No thyromegaly. Visible sutures on the nasal bridge. CARDIOVASCULAR: S1 and S2 present. No murmurs, rubs, or gallops. PULMONARY: Chest is clear to auscultation, no wheezing or crackles. ABDOMEN: Soft, nontender, nondistended, normoactive bowel sounds. No palpable organomegaly. MUSCULOSKELETAL: No joint swelling or deformity. -EXTREMITIES: No cyanosis, clubbing, or pedal edema. Small abrasions in the right forearm and right shoulder. No bleeding no cellulitis. Chronic ulcer on the right great toe. NEUROLOGICAL: Gross neurological examination did not reveal any focal deficits. SKIN: No rashes. - Labs CBC & Chem 7: 07/05/18 04:08 07/06/18 06:12 Labs: Abnormal Lab Results - Last 24 Hours (Table) 07/05/18 07/05/18 07/06/18 Range/Units 16:43 20:55 05:34 BUN (9-20) mg/dL Glucose (74-99) mg/dL POC Glucose (mg/dL) 305 H 277 H 204 H (75-99) mg/dL 07/06/18 07/06/18 07/06/18 Range/Units 06:12 11:37 16:46 BUN 24 H (9-20) mg/dL Glucose 175 H (74-99) mg/dL POC Glucose (mg/dL) 195 H 307 H (75-99) mg/dL Assessment and Plan Assessment: ASSESSMENT Syncope/presyncope Nondisplaced nasal bone fracture Essential hypertension Type 2 diabetes mellitus with hemoglobin A1c of 12.4 poorly controlled Chronic low back pain Plan: Patient had a cardiac workup for this syncopal episode , as per cardiology , they think it is not cardiac in origin. Patient's orthostatics have been negative. Patient had an echocardiogram showing normal ejection fraction. We will get a carotid artery Doppler. Patient had a computed tomography scan of the head and neck that is negative for any acute intracranial process. I performed a Charito-Hallpike maneuver that was positive, so it might be BPPV. We' ll start the patient on a trial of meclizine. Patient might also have autonomic dysfunction due to poorly controlled diabetes which can give him syncope. So had extensively discussed with the patient at the bedside regarding strict glycemic control. We'll start him on 15 units of Lantus along with sliding scale of insulin. Resume all his home medications. Further recommendations to follow depending on the progress of the patient.
[2018-07-06] MEDS: ACETAMINOPHEN TAB 325 MG TAB PO PRN (17:36)
[2018-07-06] MEDS: LORazepam 2 MG/ML INJ IV PRN (18:55)
[2018-07-06] MEDS: oxyCODONE-APAP 5-325MG 1 EACH TAB PO PRN (18:55)
[2018-07-06 20:05] LABS: Glucose,Whole Blood 382 mg/dL (75-99)
[2018-07-06] MEDS: INSULIN DETEMIR 100 UNIT/ML 10 ML VIAL SQ SCH (20:09)
[2018-07-06] MEDS: MECLIZINE 25 MG TAB PO SCH (20:10)
[2018-07-07] MEDS: oxyCODONE-APAP 5-325MG 1 EACH TAB PO PRN ×3 (03:50→16:55)
[2018-07-07] MEDS: LORazepam 2 MG/ML INJ IV PRN ×3 (03:54→18:17)
[2018-07-07] MEDS: INSULIN ASPART 100 UNIT/ML 1 ML 10 ML VIAL SQ SCH ×4 (06:30→21:05)
[2018-07-07 06:31] LABS: Glucose,Whole Blood 117 mg/dL (75-99)
[2018-07-07] MEDS: glipiZIDE 10 MG TAB PO SCH ×2 (06:39→16:56)
[2018-07-07] MEDS: CARVEDILOL 12.5 MG TAB PO SCH ×2 (06:39→17:02)
[2018-07-07] MEDS: metFORMIN 500 MG TAB PO SCH ×2 (06:39→16:56)
[2018-07-07 06:41] LABS: Basophils # (A) 0.1 k/uL (0-0.2); Basophils % (A) 2 %; Eosinophils # (A) 0.2 k/uL (0-0.7); Eosinophils % (A) 4 %; HCT 47.5 % (39.0-53.0); Lymphocytes # (A) 1.2 k/uL (1.0-4.8); Lymphocytes % (A) 22 %; MCH 27.5 pg (25.0-35.0); MCHC 31.5 g/dL (31.0-37.0); MCV 87.3 fL (80.0-100.0); Mean Platelet Volume 6.7; Monocytes # (A) 0.3 k/uL (0-1.0); Monocytes % (A) 6 %; Neutrophils # (A) 3.6 k/uL (1.3-7.7); Neutrophils % (A) 64 %; Platelet Count 185 k/uL (150-450); RBC 5.44 m/uL (4.30-5.90); RDW 13.5 % (11.5-15.5); WBC 5.6 k/uL (3.8-10.6)
[2018-07-07 06:51] LABS: Anion Gap 4 mmol/L; Blood Urea Nitrogen 21 mg/dL (9-20); Carbon Dioxide 30 mmol/L (22-30); Chloride 105 mmol/L (98-107); Glucose 127 mg/dL (74-99); Sodium 139 mmol/L (137-145)
[2018-07-07] MEDS: LISINOPRIL 20 MG TAB PO SCH ×2 (08:35→20:52)
--- NOTE | 2018-07-07 08:35 | US ---
EXAMINATION TYPE: US carotid duplex BILAT DATE OF EXAM: 07/07/2018 COMPARISON: CT Brain CLINICAL HISTORY: Syncope; Severe dizziness and fall per patient; diabetic; cigarette smoker intermit tently x years EXAM MEASUREMENTS: RIGHT: Peak Systolic Velocity (PSV) cm/sec ----- Right CCA: 51.6 ----- Right ICA: 85.3 ----- Right ECA: 68.0 ICA/CCA ratio: 1.7 RIGHT: End Diastole cm/sec ----- Right CCA: 14.2 ----- Right ICA: 27.0 ----- Right ECA: 11.3 LEFT: Peak Systolic Velocity (PSV) cm/sec ----- Left CCA: 47.2 ----- Left ICA: 68.8 ----- Left ECA: 38.0 ICA/CCA ratio: 1.5 LEFT: End Diastole cm/sec ----- Left CCA: 12.0 ----- Left ICA: 32.5 ----- Left ECA: 6.6 VERTEBRALS (direction of flow): Right Vertebral: Antegrade Left Vertebral: Antegrade Rhythm: Normal Mild intimal wall thickening is noted at bilateral carotid bifurcation and PSV is wnl bilaterally. IMPRESSION: I DO NOT SEE EVIDENCE OF A HEMODYNAMICALLY SIGNIFICANT STENOSIS IN EITHER CAROTID SYSTEM. Criteria for Assigning % of Stenosis / Diameter reduction (Estimation based on the indirect measurements of the internal carotid artery velocities (ICA PSV). 1. Normal (no stenosis)=ICA PSV < 125 cm/s: ratio < 2.0: ICA EDV<40 cm/s. 2. Less than 50% stenosis=ICA PSV < 125 cm/s: ratio < 2.0: ICA EDV<40 cm/s. 3. 50 to 69% stenosis=ICA PSV of 125 to 230 cm/s: ration 2.0 ? 4.0: ICA EDV 40-100 cm/s. 4. Greater than 70% stenosis to near occlusion= ICA PSV > 230 cm/s: ratio > 4.0: ICA EDV > 100 cm/s. 5. Near occlusion= ICA PSV velocities may be low or undetectable: variable ratio and ICA EDV. 6. Total occlusion=unable to detect flow.
[2018-07-07] MEDS: cloNIDine HCL 0.2 MG TAB PO SCH ×2 (08:37→20:52)
[2018-07-07] MEDS: TRIAMTERENE-HCTZ 37.5-25MG 1 EACH TAB PO SCH (08:38)
[2018-07-07] MEDS: MECLIZINE 25 MG TAB PO SCH (08:38)
[2018-07-07] MEDS: HEPARIN SODIUM,PORCINE 5,000 UNIT/ML 1 ML VIAL SQ SCH ×2 (08:38→20:52)
[2018-07-07] MEDS: FAMOTIDINE 20 MG TAB PO SCH (08:38)
[2018-07-07] MEDS: (Canagliflozin [Invokana] 100 MG) PO SCH (08:39)
[2018-07-07 11:33] LABS: Glucose,Whole Blood 142 mg/dL (75-99)
[2018-07-07] MEDS ORDERED: LISINOPRIL 20 MG TAB PO STA (13:28)
--- NOTE | 2018-07-07 14:10 | P.PN ---
Subjective Progress Note Date: 07/07/18 Principal diagnosis: Syncope / Presyncope Mr. Gonzalez is a 37-year-old male with a past medical history of poorly controlled type 2 diabetes mellitus, coronary artery disease, hypertension, GERD , hiatal hernia, nephrolithiasis who follows with Dr. Arguello coming in with a chief complaint of syncope/presyncope. Patient states that he had a syncopal episode when he suddenly tried to grab patient and put it on. Had a fall , trying to balance himself, on his face hurting his nose shoulders and knees and also has a small cut on the right forearm. Patient states that this is the second episode that he has experienced in the past 2 months. Patient has poorly controlled type 2 diabetes mellitus with a hemoglobin A1c of 12.4. He does have a remote cardiac cath at age 45. He and is being currently evaluated by cardiology. Today the patient is sitting up in the bed appears to be no acute distress. Patient is very upset and states that he wants to leave the hospital. I explained to him in detail that he still has ongoing workup done for his syncopal episode. So for echocardiogram and bilateral carotid artery Doppler have been within normal limits. His blood pressure is very high and we are titrating his blood pressure medications. His blood sugars are high and we're titrating his insulin doses. He states that his pain is not under good control with [facility] and mentions that [facility] doesn't work and most of the patient's. I offered him other or tinnitus as tramadol and Percocet for pain. On review of systems : Could not be done as the patient is very upset and angry. Patient's current medication list reviewed: Timolol, [place], Coreg, clonidine, famotidine, glipizide, sliding scale of insulin, Levemir, lisinopril, meclizine, metformin, N, zofran, maxzide. Objective - Vital Signs Vital signs: Vital Signs Temp 97.4 F L 07/07/18 08:25 Pulse 52 L 07/07/18 08:25 Resp 18 07/07/18 08:25 BP 161/100 07/07/18 08:25 Pulse Ox 98 07/07/18 08:25 Intake & Output 09/29/18 09/30/18 09/30/18 18:59 06:59 18:59 Intake Total 240 20 298 Output Total 0 Balance 240 20 298 Weight 102.1 kg 97 kg Intake: IV 20 0.9 20 Oral 240 298 Output: Urine 0 Other: # Voids 2 - Exam GENERAL: The patient is alert and oriented x3, not in any acute distress. Well developed, well nourished. -HEENT: Pupils are round and equally reacting to light. EOMI. No scleral icterus. No conjunctival pallor. Normocephalic, atraumatic. No pharyngeal erythema. No thyromegaly. Visible sutures on the nasal bridge. CARDIOVASCULAR: S1 and S2 present. No murmurs, rubs, or gallops. PULMONARY: Chest is clear to auscultation, no wheezing or crackles. ABDOMEN: Soft, nontender, nondistended, normoactive bowel sounds. No palpable organomegaly. MUSCULOSKELETAL: No joint swelling or deformity. -EXTREMITIES: No cyanosis, clubbing, or pedal edema. Small abrasions in the right forearm and right shoulder. No bleeding no cellulitis. Chronic ulcer on the right great toe. NEUROLOGICAL: Gross neurological examination did not reveal any focal deficits. SKIN: No rashes. - Labs CBC & Chem 7: 07/07/18 06:06 07/07/18 06:06 Labs: Abnormal Lab Results - Last 24 Hours (Table) 07/06/18 07/06/18 07/07/18 Range/Units 16:46 20:04 06:06 BUN 21 H (9-20) mg/dL Glucose 127 H (74-99) mg/dL POC Glucose (mg/dL) 307 H 382 H (75-99) mg/dL 07/07/18 07/07/18 Range/Units 06:28 11:31 BUN (9-20) mg/dL Glucose (74-99) mg/dL POC Glucose (mg/dL) 117 H 142 H (75-99) mg/dL Assessment and Plan Assessment: ASSESSMENT Syncope/presyncope Nondisplaced nasal bone fracture Essential hypertension Type 2 diabetes mellitus with hemoglobin A1c of 12.4 poorly controlled Chronic low back pain Plan: Patient had a cardiac workup for this syncopal episode , as per cardiology , they think it is not cardiac in origin. Patient's orthostatics have been negative. Patient had an echocardiogram showing normal ejection fraction. Carotid artery Doppler - WNL. Patient had a computed tomography scan of the head and neck that is negative for any acute intracranial process. I performed a Charito-Hallpike maneuver yesterday that was positive, so it might be BPPV. Started the patient on a trial of meclizine. Patient might also have autonomic dysfunction due to poorly controlled diabetes which can give him syncope. See HPI for more details. Patient's blood pressure is high so we'll increase the dose of lisinopril from 20-40 mg. A consult for Dr. Mckeon vascular surgery was placed by the admitting physician and is still pending. Continue with the rest of his current medication regimen . Further recommendations to follow depending on the progress of the patient. But the patient states that he wants to leave AMA.
[2018-07-07 16:48] LABS: Glucose,Whole Blood 166 mg/dL (75-99)
[2018-07-07 20:39] LABS: Glucose,Whole Blood 173 mg/dL (75-99)
[2018-07-07] MEDS: HYDROmorphone 1 MG/ML 1 ML SYRINGE IVP PRN (20:48)
[2018-07-07] MEDS: INSULIN DETEMIR 100 UNIT/ML 10 ML VIAL SQ SCH (20:52)
[2018-07-08] MEDS: HYDROmorphone 1 MG/ML 1 ML SYRINGE IVP PRN ×4 (02:09→20:25)
[2018-07-08 06:12] LABS: Glucose,Whole Blood 148 mg/dL (75-99)
[2018-07-08] MEDS: glipiZIDE 10 MG TAB PO SCH ×2 (06:49→17:56)
[2018-07-08] MEDS: INSULIN ASPART 100 UNIT/ML 1 ML 10 ML VIAL SQ SCH ×4 (06:49→21:49)
[2018-07-08] MEDS: metFORMIN 500 MG TAB PO SCH ×2 (06:49→17:56)
[2018-07-08] MEDS: CARVEDILOL 12.5 MG TAB PO SCH ×2 (06:49→17:56)
[2018-07-08 07:34] LABS: Basophils # (A) 0.1 k/uL (0-0.2); Basophils % (A) 1 %; Eosinophils # (A) 0.2 k/uL (0-0.7); Eosinophils % (A) 3 %; HCT 48.3 % (39.0-53.0); HGB 15.7 gm/dL (13.0-17.5); Lymphocytes # (A) 1.5 k/uL (1.0-4.8); Lymphocytes % (A) 23 %; MCH 27.8 pg (25.0-35.0); MCHC 32.6 g/dL (31.0-37.0); MCV 85.3 fL (80.0-100.0); Mean Platelet Volume 7.8; Monocytes # (A) 0.3 k/uL (0-1.0); Monocytes % (A) 5 %; Neutrophils # (A) 4.2 k/uL (1.3-7.7); Neutrophils % (A) 66 %; Platelet Count 217 k/uL (150-450); RBC 5.66 m/uL (4.30-5.90); RDW 13.3 % (11.5-15.5); WBC 6.5 k/uL (3.8-10.6)
[2018-07-08] MEDS ORDERED: ALPRAZolam 0.5 MG TAB PO PRN (07:52)
[2018-07-08 07:54] LABS: Anion Gap 5 mmol/L; Blood Urea Nitrogen 18 mg/dL (9-20); Carbon Dioxide 28 mmol/L (22-30); Chloride 106 mmol/L (98-107); Glucose 141 mg/dL (74-99); Sodium 139 mmol/L (137-145)
[2018-07-08] MEDS: (Canagliflozin [Invokana] 100 MG) PO SCH (08:35)
[2018-07-08] MEDS: cloNIDine HCL 0.2 MG TAB PO SCH ×2 (08:36→21:48)
[2018-07-08] MEDS: FAMOTIDINE 20 MG TAB PO SCH (08:36)
[2018-07-08] MEDS: HEPARIN SODIUM,PORCINE 5,000 UNIT/ML 1 ML VIAL SQ SCH ×2 (08:36→21:49)
[2018-07-08] MEDS: LISINOPRIL 20 MG TAB PO SCH ×3 (08:37→20:23)
[2018-07-08] MEDS: TRIAMTERENE-HCTZ 37.5-25MG 1 EACH TAB PO SCH (08:38)
[2018-07-08] MEDS: MECLIZINE 25 MG TAB PO SCH (08:38)
[2018-07-08] MEDS ORDERED: CARVEDILOL 12.5 MG TAB PO STA (09:09)
--- NOTE | 2018-07-08 09:23 | P.PN ---
Subjective This is a pleasant 47 years old male with past medical history of diabetes mellitus, coronary artery disease, hypertension, GERD, hiatal hernia and kidney stone, status post cardiac cath. He sees Dr. Arguello the outpatient setting. Who presents because of syncope/presyncope. 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 However patient denies chest pain. No dyspnea.. Patient has similar episode last February when he was in [place] for his son graduation he felt the same think. Patient has history of diabetes mellitus, hypertension and his current smoker about 1 pack and half per day. He is been evaluated by couple years ago when he had infection with MRSA in his left armpit at that time he has some chest discomfort and he has negative stress test. He has remote history of cardiac cath at age 45 which was negative as per patient. Drinks alcohol occasionally. No illicit drugs. This was from through abrasions on the right forearms right shoulder. Oral wound and the pouch with the notes Chest x-ray: This. CT of the head and neck. No acute intracranial process, nondisplaced nasal bone fractures 07/05/2018 Patient doesn't have any more syncope attacks, he still complaining of from little dizziness which is nonspecific, non vertigo, with no associated chest pain or dyspnea. As per cardiology evaluation is dizzy spells not be related to his neck movement. Which could not be true syncope No fall. He has some pain in the nasal bridge site. And complains from pain from his right big toe callus. 07/08/2018 Patient complains with no more dizziness. No chest pain or dyspnea today. He still complaining of from the wrist pain at the surgical site and stasis without pain medications 04/16 block with pain medication, was on 01/15. However patient was not taking IV pain medication of Dilaudid 1 mg every 6 hours which was lowered to 0.5 mg every 6 hours when necessary. Patient states that Percocet makes him too sleepy so we'll change it to Ultram. Patient hemoglobin A1c is 0.4%, although is taking glipizide and metformin 1000 and invokana, and he states his Atrovent treatment. Explained to the patient that he needs oscillating and refer him to print controller as an outpatient and he agrees but states this remain a problem with insulin is financial. So we tried with him insulin 70:30 5 units twice a day which could be cheaperPeriod but I consult for caseworker protective services Corey complaining of from callus in the big toe, surgical evaluation was called. In his blood pressure is uncontrolled, and he is on triamterene- hydrochlorothiazide 37.5-25 mg and Coreg 25 twice a day which is increased to 50 twice a day by cardiology team. As well as lisinopril 20 mg twice a day. Objective - Vital Signs Vital signs: Vital Signs Temp 97.5 F L 07/08/18 08:00 Pulse 61 07/08/18 08:00 Resp 16 07/08/18 08:00 BP 184/112 07/08/18 08:00 Pulse Ox 96 07/08/18 08:00 Intake & Output 07/07/18 07/08/18 07/08/18 18:59 06:59 18:59 Intake Total 1018 180 Output Total 0 Balance 1018 180 Weight 101.6 kg Intake: Oral 1018 180 Output: Urine 0 Other: Voiding Method Toilet Toilet # Voids 2 1 1 - Exam GENERAL: The patient is alert and oriented x3, not in any acute distress. Well developed, well nourished. -HEENT: Pupils are round and equally reacting to light. EOMI. No scleral icterus. No conjunctival pallor. Normocephalic, atraumatic. No pharyngeal erythema. No thyromegaly. small wound on the nasal bridge, the wound and closed CARDIOVASCULAR: S1 and S2 present. No murmurs, rubs, or gallops. PULMONARY: Chest is clear to auscultation, no wheezing or crackles. ABDOMEN: Soft, nontender, nondistended, normoactive bowel sounds. No palpable organomegaly. MUSCULOSKELETAL: No joint swelling or deformity. -EXTREMITIES: No cyanosis, clubbing, or pedal edema. Small abrasions in the right forearm and right shoulder. No bleeding no cellulitis... Painful callus on the right big toe NEUROLOGICAL: Gross neurological examination did not reveal any focal deficits. SKIN: No rashes. - Labs CBC & Chem 7: 07/08/18 06:13 07/08/18 06:13 Labs: Abnormal Lab Results - Last 24 Hours (Table) 07/07/18 07/07/18 07/07/18 Range/Units 11:31 16:11 20:37 Glucose (74-99) mg/dL POC Glucose (mg/dL) 142 H 166 H 173 H (75-99) mg/dL 07/08/18 07/08/18 Range/Units 06:11 06:13 Glucose 141 H (74-99) mg/dL POC Glucose (mg/dL) 148 H (75-99) mg/dL Assessment and Plan Assessment: Syncope, possible BBP vs diabetic neuropathy vs other nondisplaced nasal bone fractures, healing Diabetes mellitus, uncontrolled Right big toe callus Hypertension History of coronary artery disease GERD History of MRSA infection in left armpit about 2 yrs ago Plan: This is a pleasant 47 years old male who presents with syncope. We'll admit the patient's with asking for cardiology evaluation. Continue with heparin drip. Monitor lytes and labs especially troponins. Continue with telemetry. With same treatment. Continue supportive treatment. Resume home medications. Monitor vitals and labs. GI and DVT prophylaxis. Further recommendations based on the clinical course with the patient DVT prophylaxis: He is ready on heparin drip GI prophylaxis. Pepcid PT/OT: Pending Prognosis is guarded
[2018-07-08] MEDS: traMADol 50 MG TAB PO PRN ×2 (11:40→21:53)
[2018-07-08 12:00] LABS: Glucose,Whole Blood 134 mg/dL (75-99)
[2018-07-08] MEDS ORDERED: oxyCODONE-APAP 5-325MG 1 EACH TAB PO PRN (12:27)
--- NOTE | 2018-07-08 14:10 | CONS ---
DATE OF CONSULTATION 07/08/2018 This is a 47-year-old gentleman who is seen in on consultation. Patient has a callus, right foot, big toe plantar aspect for the past few months. Patient has been asymptomatic. Patient has been admitted with history of dizzy spell at work. He had a complete stroke workup. Patient had a carotid ultrasound which was normal and CT scan showed no acute intracranial process. MEDICAL HISTORY: History of diabetes, history of coronary artery disease, history of kidney stone , post cardiac cath. On examination, patient was seen in his room. He has a superficial abrasion on his nose area. Neck is supple. Chest is clear to auscultation. Abdomen is soft. Femoral pulses are palpable, dorsal pedis is palpable. Patient has a callus on the right foot, plantar aspect. At this point, there is no redness, no discharge noted. PLAN: He is able to use Santyl cream for the right foot big toe. I will follow up in office on . At this point, patient does not need any surgical intervention. Will continue with Santyl cream. MMODL / IJN: [id number] / MTDD
[2018-07-08 16:59] LABS: Glucose,Whole Blood 198 mg/dL (75-99)
[2018-07-08] MEDS: COLLAGENASE 250 UNIT/GM OINTMENT 30 GM TUBE TOPICAL SCH (17:56)
--- NOTE | 2018-07-08 20:10 | P.CNNES ---
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 Not lose consciousness. He states he was fully awake. He denies any loss of consciousness. States he fell forward because of the sudden vertigo he experienced. He has had episodes like this over the last 6 months where with certain head positions he will experience of vertigo. 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 Also he is says that a few months ago he was diving into the deep" fall and as he does over the rope of the Demetrius he developed sudden dizziness and had some difficulty getting back up from under the water. He did not hit the bottom of the pool and he did not lose consciousness. The patient denies neck pain. He has chronic back pain. He denies any complaints currently such as dizziness lightheadedness double vision weakness numbness Review of Systems Constitutional: Denies chills, Denies fever Eyes: denies blurred vision, denies pain Cardiovascular: Denies chest pain, Denies shortness of breath Respiratory: Denies cough Neurological: Denies numbness, Denies weakness Past Medical History Past Medical History: Chest Pain / Angina, Diabetes Mellitus, GERD/Reflux, Hypertension Additional Past Medical History / Comment(s): NIDDM type II, hiatal hernia, nephrolithiasis, chronic low baci pain, bilateral leg numbness, current callous R great toe, past left olecranon bursitis. History of Any Multi-Drug Resistant Organisms: MRSA Date of last positivie culture/infection: 12/21/16 MDRO Source:: Left axilla Past Surgical History: Appendectomy, Cholecystectomy, Heart Catheterization, Orthopedic Surgery Additional Past Surgical History / Comment(s): RENAL ANGIOGRAM 2006 for HTN, cardiac cath 2005, LT WRIST TENDON REPAIR 2013, RT ROTATOR CUFF REPAIR, bilateral knee arthroscopies, I&D L axillae Past Anesthesia/Blood Transfusion Reactions: No Reported Reaction Smoking Status: Current every day smoker - Past Family History Father Family Medical History: Diabetes Mellitus, Hypertension Mother Family Medical History: Cancer, Hypertension Additional Family Medical History / Comment(s): LUNG CANCER(NON SMOKER) Medications and Allergies Home Medications Medication Instructions Recorded Confirmed Type Lisinopril [Prinivil] 20 mg PO BID 03/27/14 07/04/18 History Minoxidil [Loniten] 2.5 mg PO DAILY 06/02/16 07/04/18 History Triamterene/Hydrochlorothiazid 1 tab PO DAILY 06/02/16 07/04/18 History [Maxzide 37.5-25] cloNIDine HCL [Catapres] 0.2 mg PO BID 06/02/16 07/04/18 History glipiZIDE [Glucotrol] 10 mg PO AC-BID 06/02/16 07/04/18 History metFORMIN HCL [Glucophage] 1,000 mg PO AC-BID 06/02/16 07/04/18 History Carvedilol 25 mg PO BID 06/03/16 07/04/18 History Acetaminophen Tab [Tylenol Tab] 650 mg PO Q4H PRN 07/04/18 07/04/18 History Canagliflozin [Invokana] 100 mg PO DAILY 07/04/18 07/04/18 History Ibuprofen [Motrin Ib] 400 mg PO Q6H PRN 07/04/18 07/04/18 History Naproxen Sodium [Aleve] 220 mg PO DAILY PRN 07/04/18 07/04/18 History Omeprazole [PriLOSEC] 20 mg PO AC-BID 07/04/18 07/04/18 History Allergies Allergy/AdvReac Type Severity Reaction Status Date / Time vancomycin Allergy Unknown Verified 07/04/18 12:06 Physical Examination - Vital Signs Vital Signs: Vital Signs Temp Pulse Pulse Pulse Resp BP BP 07/08/18 15:17 97.8 F 58 L 16 122/78 07/08/18 12:00 98.4 F 60 60 16 164/105 07/08/18 09:46 07/08/18 08:00 97.5 F L 61 61 16 184/112 07/08/18 04:10 98.2 F 56 L 17 155/99 07/08/18 00:10 97.9 F 61 63 17 154/95 07/07/18 20:10 98.2 F 68 18 173/109 Pulse Ox 07/08/18 15:17 95 07/08/18 12:00 97 07/08/18 09:46 96 07/08/18 08:00 96 07/08/18 04:10 97 07/08/18 00:10 97 07/07/18 20:10 95 Intake and Output 07/08/18 07/08/18 07/08/18 06:59 14:59 22:59 Intake Total 420 Balance 420 Intake: Oral 420 Other: Voiding Method Toilet Toilet # Voids 1 1 2 Weight 101.6 kg - EENT EENT: PERRL, hearing intact, vision intact - Respiratory Respiratory: lungs clear - Cardiovascular Cardiovascular: regular rate, normal S1, normal S2 - Neurologic Neurologic examination: Mental status: He was awake alert and oriented 3. Speech was fluent there was no a aphasia or dysarthria Cranial nerve examination: PERRL, EOMI, VFF, V1/V2/V3 grossly intact, face symmetric, tongue midline Speech examination: intact Sensorimotor examination: intact Detailed motor examination: grossly full strength in all extremities Detailed sensory examination: intact Reflex and gait examination: intact Reflexes: 0: knee (Left knee jerk was absent) - Psychiatric Psychiatric: mood/affect appropriate Results - Laboratory Findings CBC and BMP: 07/08/18 06:13 07/08/18 06:13 Abnormal Lab Findings: Abnormal Labs 07/04/18 07/04/18 07/04/18 11:29 11:35 11:35 RBC 6.11 H Hct 53.9 H APTT BUN Glucose POC Glucose (mg/dL) 377 H Hemoglobin A1c ALT CK-MB (CK-2) 4.3 H 07/04/18 07/04/18 07/04/18 11:35 16:04 17:29 RBC Hct APTT BUN 23 H Glucose 394 H POC Glucose (mg/dL) 257 H Hemoglobin A1c ALT 20 L CK-MB (CK-2) 4.7 H 07/04/18 07/04/18 07/05/18 20:44 23:02 04:08 RBC Hct APTT BUN Glucose POC Glucose (mg/dL) 252 H Hemoglobin A1c 12.4 H ALT CK-MB (CK-2) 3.5 H 07/05/18 07/05/18 07/05/18 04:08 04:08 06:09 RBC Hct APTT 36.4 H BUN 23 H Glucose 232 H POC Glucose (mg/dL) 185 H Hemoglobin A1c ALT CK-MB (CK-2) 07/05/18 07/05/18 07/05/18 11:10 16:43 20:55 RBC Hct APTT BUN Glucose POC Glucose (mg/dL) 293 H 305 H 277 H Hemoglobin A1c ALT CK-MB (CK-2) 07/06/18 07/06/18 07/06/18 05:34 06:12 11:37 RBC Hct APTT BUN 24 H Glucose 175 H POC Glucose (mg/dL) 204 H 195 H Hemoglobin A1c ALT CK-MB (CK-2) 07/06/18 07/06/18 07/07/18 16:46 20:04 06:06 RBC Hct APTT BUN 21 H Glucose 127 H POC Glucose (mg/dL) 307 H 382 H Hemoglobin A1c ALT CK-MB (CK-2) 07/07/18 07/07/18 07/07/18 06:28 11:31 16:11 RBC Hct APTT BUN Glucose POC Glucose (mg/dL) 117 H 142 H 166 H Hemoglobin A1c ALT CK-MB (CK-2) 07/07/18 07/08/18 07/08/18 20:37 06:11 06:13 RBC Hct APTT BUN Glucose 141 H POC Glucose (mg/dL) 173 H 148 H Hemoglobin A1c ALT CK-MB (CK-2) 07/08/18 07/08/18 11:54 16:48 RBC Hct APTT BUN Glucose POC Glucose (mg/dL) 134 H 198 H Hemoglobin A1c ALT CK-MB (CK-2) Assessment and Plan (1) Pre-syncope Current Visit: Yes Status: Acute Code(s): R55 - SNOMED Code(s): 885416678 (2) Positional vertigo Current Visit: Yes Status: Acute Code(s): LGA2869 - SNOMED Code(s): 777863730 (3) Facial contusion Current Visit: Yes Status: Acute SNOMED Code(s): 138358270 (4) Nasal bone fracture Current Visit: Yes Status: Acute SNOMED Code(s): 494228916 Plan: The patient is a 47-year-old man who has been having periodic episodes of vertigo associated with certain positions of his head including neck extension flexion or lateral rotation. The episodes of been very brief. His neurologic examination is unremarkable. He presents to the hospital after having had an episode of acute vertigo followed by fall forward and injury to face after fall. Patient has had a CAT scan of the brain which was unremarkable., Except for nasal bone fracture He has had a carotid ultrasound which was unremarkable. Cardiology has seen the patient. The patient denies any loss of consciousness. The patient denies any loss of consciousness . He was advised that if he had loss of consciousness, he should not be operating a motorized vehicle until spell free for 6 months per [place] law. The patient states however that he did not lose consciousness. Recommend MRI of the brain which can be done outpatient. Also recommend ENT evaluation for positional vertigo, which also can be done outpatient. The patient denies any neck pain. He did have a CT of the cervical spine which showed disc bulge. The patient reports that he will be seeing a neurologist next week regarding his chronic back problems. He would like to wait and have MRI of the brain done at the time that he gets his MRI of the lumbar spine done.
[2018-07-08] MEDS ORDERED: hydrALAZINE HCL 25 MG TAB PO PRN (20:28)
[2018-07-08 20:35] LABS: Glucose,Whole Blood 234 mg/dL (75-99)
[2018-07-08] MEDS ORDERED: INSULIN NPH/REG INSULIN 70/30 300 UNIT/3 ML VIAL SQ SCH (21:00)
[2018-07-08] MEDS ORDERED: DEXTROSE 50%-WATER 50 ML SYRINGE IVP PRN (22:08)
[2018-07-09] MEDS: HYDROmorphone 1 MG/ML 1 ML SYRINGE IVP PRN ×2 (03:11→08:49)
[2018-07-09 06:09] LABS: Glucose,Whole Blood 151 mg/dL (75-99)
[2018-07-09] MEDS: CARVEDILOL 12.5 MG TAB PO SCH (07:02)
[2018-07-09] MEDS: metFORMIN 500 MG TAB PO SCH (07:02)
[2018-07-09] MEDS: traMADol 50 MG TAB PO PRN (07:02)
[2018-07-09] MEDS: glipiZIDE 10 MG TAB PO SCH (07:02)
[2018-07-09] MEDS: INSULIN ASPART 100 UNIT/ML 1 ML 10 ML VIAL SQ SCH ×2 (07:03→11:41)
[2018-07-09] MEDS ORDERED: INSULIN NPH/REG INSULIN 70/30 300 UNIT/3 ML VIAL SQ SCH (07:30)
[2018-07-09] MEDS: (Canagliflozin [Invokana] 100 MG) PO SCH (08:35)
[2018-07-09] MEDS: cloNIDine HCL 0.2 MG TAB PO SCH (08:36)
[2018-07-09] MEDS: COLLAGENASE 250 UNIT/GM OINTMENT 30 GM TUBE TOPICAL SCH (08:36)
[2018-07-09] MEDS: HEPARIN SODIUM,PORCINE 5,000 UNIT/ML 1 ML VIAL SQ SCH (08:36)
[2018-07-09] MEDS: FAMOTIDINE 20 MG TAB PO SCH (08:36)
[2018-07-09] MEDS: MECLIZINE 25 MG TAB PO SCH (08:37)
[2018-07-09] MEDS: LISINOPRIL 20 MG TAB PO SCH ×2 (08:37)
[2018-07-09] MEDS: TRIAMTERENE-HCTZ 37.5-25MG 1 EACH TAB PO SCH (08:38)
[2018-07-09] MEDS ORDERED: COLLAGENASE 250 UNIT/GM OINTMENT 30 GM TUBE TOPICAL SCH (09:00)
[2018-07-09] MEDS ORDERED: amLODIPine 5 MG TAB PO SCH (09:00)
[2018-07-09 10:11] VITALS: RESP 20
[2018-07-09 11:36] LABS: Glucose,Whole Blood 91 mg/dL (75-99)
[2018-07-09 12:14] VITALS: BP 141/95; PULSE 51; TEMP 98.4
--- NOTE | 2018-07-09 13:45 | P.DS ---
Providers Date of admission: 07/04/18 13:58 Attending physician: Benny Eddy MD Consults: 07/04/18 13:59 Consult Physician Routine Consulting Provider: José Laurent Consult Reason/Comments: Syncope, EKG change Do you want consulting provider notified?: Yes 07/05/18 16:21 Consult Physician Routine Consulting Provider: Jose A Mckeon Consult Reason/Comments: left big toe painful callosites Do you want consulting provider notified?: Yes 07/08/18 09:16 Consult Physician Routine Consulting Provider: Netta Biggs Consult Reason/Comments: syncope Do you want consulting provider notified?: Yes Primary care physician: [facility] Hospital Course: This is a pleasant 47 years old male with past medical history of diabetes mellitus, coronary artery disease, hypertension, GERD, hiatal hernia and kidney stone, status post cardiac cath. He sees Dr. Arguello the outpatient setting. Who presents because of syncope/presyncope. 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 However patient denies chest pain. No dyspnea.. Patient has similar episode last February when he was in [place] for his son graduation he felt the same think. Patient has history of diabetes mellitus, hypertension and his current smoker about 1 pack and half per day. He is been evaluated by adult basic studies teacher years ago when he had infection with MRSA in his left armpit at that time he has some chest discomfort and he has negative stress test. He has remote history of cardiac cath at age 45 which was negative as per patient. Drinks alcohol occasionally. No illicit drugs. This was from through abrasions on the right forearms right shoulder. wound on thepatch which was sutured in ED and is feeling. Chest x-ray: No acute process CT of the head and neck. No acute intracranial process, nondisplaced nasal bone fractures. Patient has been evaluated by adult basic studies teacher and they they don't think that patient's symptoms, from the heart. Neurology was also evaluated the patient and recommended MRI of the brain as an outpatient. He sees Dr. Leggett anyway and he is told me he has an appointment on 07/15/2018 is going to call my confirm is going to be 8 or 10:00 in the morning. Patient states he supposed to have lumbar MRI and he wanted to be done at the same time. Patient has positive Charito-Hallpike maneuver and BPPV would be in the differential diagnosis. Patient started on meclizine. He already feels better with no more dizziness. His pain is controlled on pain medication. I called his neurologist Dr. Leggett and discussed the case with him with recommendation to do MRI of the brain as an outpatient and he kindly took note of this. Confirmed his appointment with the patient on 07/15/2018 at 10 AM , patient informed. Patient was complaining of from pain on his right big toe callus. Which is in view of his uncontrolled diabetes vascular surgery been consulted and after evaluation the recommend to refer the patient is an outpatient. Patient's hemoglobin A1c is 12.4% although he is taking any diabetes education including metformin 1000 twice a day, glipizide 10 mg and invokana, and he told me he is adherent to treatment. She states he was not taking insulin before for financial reasons. We've placed him on 70:30 insulin 5 Units twice a day as it might be more affordable, and asked patient to follow-up with his PCP and rn allergy as an outpatient, pt agrees .as per staff patient has already insulin prescription at [facility] pharmacy. Patient instructed to use prescription provided by this hospital today on discharge this time he agrees. I discussed with the patient's at bedside the symptoms and management of hypoglycemia, including risks explained. Patient states that he aware of the symptoms that he has a before. Patient informed me he has glucometer with all accessories. Instructed to check his sugar 4 times a day and bring results to his doctor's outpatient and he agrees Patient has been cleared by both neurology and cardiology services for discharge Problems and management plan was discussed with the patient and he verbalized understanding and acceptance Patient is found stable and can be discharged home however he needs follow-up as an outpatient. Patient informed and he agrees with the appointments dates and times physical exam Gen.: Patient alert awake and oriented X 3, NOT IN DISTRESS Nose: Wound on the nasal bridge is healing and sutures in a Place CVS: s1-s2, RRR, no murmur CHEST:bilateral CTA, no wheezing or crepitation Abdomen: Soft, no tenderness, no distention, positive bowel sounds Extremities: No leg edema or induration, callus on the toe of the right foods, with no signs symptoms of inflammation Time spent more than 35 minutes Patient Condition at Discharge: Stable Plan - Discharge Summary Discharge Rx Participant: No New Discharge Prescriptions: New amLODIPine [Norvasc] 5 mg PO DAILY 30 Days #30 tab Carvedilol [Coreg] 50 mg PO BID 30 Days #120 tablet Insulin NPH/Reg Insulin 70/30 [humuLIN 70/30 VIAL] 5 unit SQ AC-BRKFST #1 vial Insulin NPH/Reg Insulin 70/30 [humuLIN 70/30 VIAL] 5 unit SQ HS #1 vial Meclizine [Antivert] 25 mg PO DAILY #60 tab oxyCODONE-APAP 5-325MG [Percocet 5-325 mg] 1 each PO Q6HR PRN 2 Days #8 tab PRN Reason: Pain Continue Lisinopril [Prinivil] 20 mg PO BID glipiZIDE [Glucotrol] 10 mg PO AC-BID Triamterene/Hydrochlorothiazid [Maxzide 37.5-25] 1 tab PO DAILY metFORMIN HCL [Glucophage] 1,000 mg PO AC-BID cloNIDine HCL [Catapres] 0.2 mg PO BID Acetaminophen Tab [Tylenol] 650 mg PO Q4H PRN PRN Reason: Pain Omeprazole [PriLOSEC] 20 mg PO AC-BID Canagliflozin [Invokana] 100 mg PO DAILY Discontinued Minoxidil [Loniten] 2.5 mg PO DAILY Carvedilol 25 mg PO BID Naproxen Sodium [Aleve] 220 mg PO DAILY PRN PRN Reason: Pain Ibuprofen [Motrin Ib] 400 mg PO Q6H PRN PRN Reason: Pain Discharge Medication List Lisinopril [Prinivil] 20 mg PO BID 03/27/14 [History] Triamterene/Hydrochlorothiazid [Maxzide 37.5-25] 1 tab PO DAILY 06/02/16 [ History] cloNIDine HCL [Catapres] 0.2 mg PO BID 06/02/16 [History] glipiZIDE [Glucotrol] 10 mg PO AC-BID 06/02/16 [History] metFORMIN HCL [Glucophage] 1,000 mg PO AC-BID 06/02/16 [History] Acetaminophen Tab [Tylenol] 650 mg PO Q4H PRN 07/04/18 [History] Canagliflozin [Invokana] 100 mg PO DAILY 07/04/18 [History] Omeprazole [PriLOSEC] 20 mg PO AC-BID 07/04/18 [History] Carvedilol [Coreg] 50 mg PO BID 30 Days #120 tablet 07/09/18 [Rx] Insulin NPH/Reg Insulin 70/30 [humuLIN 70/30 VIAL] 5 unit SQ AC-BRKFST #1 vial 07/09/18 [Rx] Insulin NPH/Reg Insulin 70/30 [humuLIN 70/30 VIAL] 5 unit SQ HS #1 vial [Rx] Meclizine [Antivert] 25 mg PO DAILY #60 tab 07/09/18 [Rx] amLODIPine [Norvasc] 5 mg PO DAILY 30 Days #30 tab 07/09/18 [Rx] oxyCODONE-APAP 5-325MG [Percocet 5-325 mg] 1 each PO Q6HR PRN 2 Days #8 tab 11/25 [Rx] Follow up Appointment(s)/Referral(s): Anuel Peters MD [Primary Care Provider] - 07/11/18 11:20 am ( Primary physician to refer you to Dr. Christina and an ENT physician.) Mil Christina MD [REFERRING] - 1 Week (Your PCP must send a referral to see Dr. Christina- rn allergy) Yonis Leggett MD [STAFF PHYSICIAN] - 07/15/18 10:00 am (Please keep previous follow up appointment.) Jose A Mckeon MD [STAFF PHYSICIAN] - 07/11/18 2:15 pm () Esvin Taveras MD [STAFF PHYSICIAN] - 07/10/18 2:30 pm (ENT- Please arrive early for new patient paperwork. -need evaluation forfracture and possible (positional vertigo)) Patient Instructions/Handouts: Syncope (DC), Hypoglycemia in a Person with Diabetes (DC), Diabetes and Nutrition (DC) Activity/Diet/Wound Care/Special Instructions: diabetic diet 18 kcal per day Activity as tolerated Discharge Disposition: HOME SELF-CARE
--- NOTE | 2018-07-11 13:45 | CDI ---
Documentation Clarification Form Date: 07/11/2018 1:33:07 PM From: ANN MARIE Coughlin; Regina Ospina Chief Writer Phone: If you have a question about this query, please contact Regina Ospina Chief Writer at [phone] between 8am and 5pm. Admit Date: 07/04/2018 1:58:00 PM Patient Name: Jeet Gonzalez Visit Number: [id number] Discharge Date: 07/09/2018 ATTENTION: The Clinical Documentation Specialists (CDI) and [facility] Coding Staff appreciate your assistance in clarifying documentation. Please respond to the clarification below the line at the bottom and electronically sign. The CDI & [facility] staff will review the response and follow-up if needed. Please note: Queries are made part of the Legal Health Record. If you have any questions, please contact the author of this message via ITS. Benny Monroe MD Documentation in the record states diabetes uncontrolled and poorly controlled. History/Risk Factors: Patient not compliant with insulin. A1c from 07/05 is 12.4. Clinical Indicators: glucose, 134, 198, 234, 151, 91. Treatment: Insulin 10:30 5 units bid. In order to capture the severity of Illness and necessary documentation specificity, please clarify: DM type 2, uncontrolled with hyperglycemia DM type 2, uncontrolled with hypoglycemia DM type 2, poorly controlled Other, please specify Unable to Determine ____DM type 2, uncontrolled with hyperglycemia MTDD
== END 2018-07-09 14:25 | disposition home or self-care (01) | DRG 149 ==
LOC: EC 11:12 → 6SEL 13:58
PROVIDERS: ADMIT Internal Medicine; ATTEND Internal Medicine
DX: H81.10 Benign paroxysmal vertigo, unspecified ear (principal); F17.200 Nicotine dependence, unspecified, uncomplicated; G89.29 Other chronic pain; I11.9 Hypertensive heart disease without heart failure; I25.10 Atherosclerotic heart disease of native coronary artery without angina pectoris; K21.9 Gastro-esophageal reflux disease without esophagitis; S01.21XA Laceration without foreign body of nose, initial encounter; S02.2XXA Fracture of nasal bones, initial encounter for closed fracture; S51.811A Laceration without foreign body of right forearm, initial encounter; W19.XXXA Unspecified fall, initial encounter; Z79.4 Long term (current) use of insulin; Z80.1 Family history of malignant neoplasm of trachea, bronchus and lung; Z82.49 Family history of ischemic heart disease and other diseases of the circulatory system; Z83.3 Family history of diabetes mellitus; Z86.14 Personal history of Methicillin resistant Staphylococcus aureus infection; Z87.442 Personal history of urinary calculi; Z91.14 Patient's other noncompliance with medication regimen; E11.65 Type 2 diabetes mellitus with hyperglycemia
CPT/HCPCS: 12011; 36415; 70450; 71046; 72125; 80048; 80053; 82550; 82553; 83036; 83735; 84484; 85025; 85610; 85730; 93005; 93306; 93880; 94760; 96365; 96375; 96376; 99285

== ENCOUNTER → 2018-08-05 | Outpatient (CLI) | payer BC ==
--- NOTE | 2018-08-05 23:20 | MR ---
EXAMINATION TYPE: MR lumbar spine wo con DATE OF EXAM: 08/05/2018 COMPARISON: Prior MRI lumbar spine April 02, 2012. HISTORY: Lumbago per order, back pain x several years into both legs per patient. TECHNIQUE: Multiplanar, multisequence imaging of the lumbar spine is performed without IV contrast. FINDINGS: Sagittal images of the lumbar spine show vertebral body heights to remain satisfactory. The re is disc desiccation with mild disc space narrowing at L3-L4 level. There is new disc desiccation L 4-L5 level with disc space height is maintained. There is persistent disc desiccation with advanced d isc space narrowing L5-S1 level. Slight grade 1 retrolisthesis L5 on S1 is new from prior study howev er. The conus medullaris remains normal in position and signal in the superior L1 level. The bone ma rrow signal intensity is within normal limits. No significant spurring is seen. Axial images show the T12-L1 and L1-L2 levels to remain within normal limits. Axial images at the L2-L3 level show new mild broad-based posterior disc protrusion mildly effaces th e anterior thecal sac on axial image 18. Bilateral neural foramina are patent. Finding new from prior . Axial images at the L3-L4 level shows mild/moderate broad disc bulge effacing the anterior thecal sac and causing mild bilateral anterior inferior neural foraminal narrowing. No significant change from prior. Axial images at the L4-L5 level shows broad-based posterior disc protrusion effacing the anterior the yumiko sac on axial image 8, in addition there is a prominent right foraminal component fashion image 11 demonstrated causing moderate to advanced right-sided neural foraminal narrowing and encroachment on right L4 nerve. Left-sided neural foramen is patent. No significant change from prior. Axial images at the L5-S1 level shows mild facet degenerative changes bilaterally. There is broad-bas ed right paracentral disc protrusion. Left-sided neural foramen is patent. Right side shows mild narr owing. Spinal canal is preserved. There is partial visualization of several thin-walled cysts throughout the right kidney which are sig nificantly increased in size and number from prior MRI. Consider renal ultrasound correlation. IMPRESSION: Multilevel degenerative changes in lumbar spine as detailed above with some interval prog ression from 2012 MRI noted. Prominent disc herniation right L4-L5 level is felt stable. Enlarging an d more numerous right renal cysts are felt present.
== END | disposition home or self-care (01) ==
LOC: RADMRIMAIN 21:24
PROVIDERS: ATTEND Psychiatry & Neurology Neurology
DX: M51.26 Other intervertebral disc displacement, lumbar region (principal); M47.817 Spondylosis without myelopathy or radiculopathy, lumbosacral region
CPT/HCPCS: 72148

== ENCOUNTER → 2018-08-15 | Outpatient (CLI) | payer BC ==
--- NOTE | 2018-08-15 17:10 | US ---
EXAMINATION TYPE: US kidneys/renal and bladder DATE OF EXAM: 08/15/2018 COMPARISON: MR 07/25 CLINICAL HISTORY: N28.1 Known renal cyst. EXAM MEASUREMENTS: Right Kidney: 11.8x5.7 x 7.7 cm Left Kidney: 11.1 x 5.6 x 5.4 cm Post Void Residual Volume: 28 mL full bladder volume: 411.7 ml Right Kidney: multiple cysts inferior 1.6 x 1.2 x 1.1 cm. mid 3.0 x 3.0 x 3.8 ml, superior 1.0 x 1.2 x 1.6 cm, superior7.3 x 4.9 x 5.8 cm Left Kidney: multiple cysts ,superior 1.2 x 1.1 x 1.0 cm. superior 1.2 x 1.3 x 1.2 cm, mid 1.1 x 1. 6 x 1.5 cm, inferior 1.4 x 1.4 x 1.9 cm, Bladder: wnl Bilateral Jets seen: Yes Normal Post Void Residual: Yes IMPRESSION: 1. Bilateral renal cysts.
== END | disposition home or self-care (01) ==
LOC: RADUSWWP 16:00
PROVIDERS: ATTEND Internal Medicine
DX: N28.1 Cyst of kidney, acquired (principal)
CPT/HCPCS: 76770

== ENCOUNTER 2018-10-24 02:14 | Emergency (ER) | payer BC ==
[2018-10-24] MEDS ORDERED: ORPHENADRINE 30 MG/ML 2 ML VIAL IM STA (02:53)
[2018-10-24] MEDS ORDERED: MORPHINE SULFATE 4 MG/ML SYRINGE IM STA (02:53)
--- NOTE | 2018-10-24 03:24 | CT ---
EXAMINATION TYPE: CT lumbar spine wo con DATE OF EXAM: 10/24/2018 3:09 AM COMPARISON: None HISTORY: Low Back Pain CT DLP: 1426 mGycm Automated exposure control for dose reduction was used. Unenhanced CT of the lumbar spine was performed. Bone and soft tissue window settings are submitted as well as coronal and sagittal reconstructions. The lumbar vertebra have normal alignment. There is moderate narrowing at L5-S1 disc. There is spurri ng of the endplates. There is posterior disc herniation with calcification at L3-4. There is developm entally adequate spinal canal and no significant spinal stenosis. There is no lumbar paraspinal mass. There is 6 cm cortical cyst upper pole right kidney. The posterior elements are intact. Sacroiliac j oints are intact. There is 3 mm calcification right kidney. There is small calcification lower pole l eft kidney. IMPRESSION: Spondylosis at L5-S1. Posterior disc herniations from L3 to S1 without significant impingement on the spinal canal. No fracture seen.
--- NOTE | 2018-10-24 03:38 | ED ---
Back Pain [facility] - General Chief Complaint: Back Pain/Injury Stated Complaint: back pain Time Seen by Provider: 10/24/18 02:46 Source: patient Limitations: no limitations - History of Present Illness Complaint: back pain Onset/Timin -: days(s) Similar Symptoms Previously: No Place: home Radiation: right leg Severity: moderate Quality: burning, aching Consistency: constant Improves With: none Worsens With: movement Associated Symptoms: denies other symptoms - Related Data Home Medications Medication Instructions Recorded Confirmed Lisinopril [Prinivil] 20 mg PO BID 03/27/14 10/24/18 Triamterene/Hydrochlorothiazid 1 tab PO DAILY 06/02/16 10/24/18 [Maxzide 37.5-25] cloNIDine HCL [Catapres] 0.2 mg PO BID 06/02/16 10/24/18 glipiZIDE [Glucotrol] 10 mg PO AC-BID 06/02/16 10/24/18 metFORMIN HCL [Glucophage] 1,000 mg PO AC-BID 06/02/16 10/24/18 Acetaminophen Tab [Tylenol] 650 mg PO Q4H PRN 07/04/18 10/24/18 Canagliflozin [Invokana] 100 mg PO DAILY 07/04/18 10/24/18 Omeprazole [PriLOSEC] 20 mg PO AC-BID 07/04/18 10/24/18 Previous Rx's Medication Instructions Recorded Carvedilol [Coreg] 50 mg PO BID 30 Days #120 tablet 07/09/18 Insulin NPH/Reg Insulin 70/30 5 unit SQ AC-BRKFST #1 vial 07/09/18 [humuLIN 70/30 VIAL] Insulin NPH/Reg Insulin 70/30 5 unit SQ HS #1 vial 07/09/18 [humuLIN 70/30 VIAL] Meclizine [Antivert] 25 mg PO DAILY #60 tab 07/09/18 amLODIPine [Norvasc] 5 mg PO DAILY 30 Days #30 tab 07/09/18 oxyCODONE-APAP 5-325MG [Percocet 1 each PO Q6HR PRN 2 Days #8 tab 07/09/18 5-325 mg] Methocarbamol [Robaxin-750] 750 mg PO TID PRN #30 tablet 10/24/18 predniSONE 60 mg PO DAILY #30 tab 10/24/18 Lidocaine [Lidoderm 5% Patch] 1 patch TRANSDERM DAILY #7 patch 10/26/18 Allergies Allergy/AdvReac Type Severity Reaction Status Date / Time vancomycin Allergy Unknown Verified 10/26/18 08:19 Review of Systems ROS Statement: Those systems with pertinent positive or pertinent negative responses have been documented in the HPI. ROS Other: All systems not noted in ROS Statement are negative. Constitutional: Denies: fever, chills, weakness Respiratory: Denies: cough, dyspnea Cardiovascular: Denies: chest pain, palpitations, edema Gastrointestinal: Denies: abdominal pain, vomiting, diarrhea, constipation Genitourinary: Denies: dysuria, hematuria, testicular pain, testicular mass Musculoskeletal: Reports: as per HPI, back pain Skin: Denies: rash Neurological: Denies: headache, weakness, numbness, paresthesias Past Medical History Past Medical History: Chest Pain / Angina, Diabetes Mellitus, GERD/Reflux, Hypertension Additional Past Medical History / Comment(s): NIDDM type II, hiatal hernia, nephrolithiasis, chronic low baci pain, bilateral leg numbness, current callous R great toe, past left olecranon bursitis. History of Any Multi-Drug Resistant Organisms: MRSA Date of last positivie culture/infection: 12/21/16 MDRO Source:: Left axilla Past Surgical History: Appendectomy, Cholecystectomy, Heart Catheterization, Orthopedic Surgery Additional Past Surgical History / Comment(s): RENAL ANGIOGRAM 2005 for HTN, cardiac cath 2005, LT WRIST TENDON REPAIR 2013, RT ROTATOR CUFF REPAIR, bilateral knee arthroscopies, I&D L axillae Past Anesthesia/Blood Transfusion Reactions: No Reported Reaction Past Psychological History: No Psychological Hx Reported Smoking Status: Current every day smoker - Past Family History Father Family Medical History: Diabetes Mellitus, Hypertension Mother Family Medical History: Cancer, Hypertension Additional Family Medical History / Comment(s): LUNG CANCER(NON SMOKER) General Exam Limitations: no limitations General appearance: alert, in no apparent distress Neck exam: Present: normal inspection, full ROM Respiratory exam: Present: normal lung sounds bilaterally Cardiovascular Exam: Present: regular rate, normal rhythm, normal heart sounds GI/Abdominal exam: Present: soft. Absent: distended, tenderness, guarding, rebound, rigid Extremities exam: Present: normal capillary refill. Absent: pedal edema, calf tenderness Back exam: Present: normal inspection, paraspinal tenderness. Absent: CVA tenderness (R), CVA tenderness (L) Neurological exam: Present: reflexes normal. Absent: motor sensory deficit Skin exam: Present: warm, dry, intact, normal color. Absent: rash Course Vital Signs 10/24/18 10/24/18 02:16 04:52 Temperature 98.7 F 97.6 F Pulse Rate 91 88 Respiratory 20 18 Rate Blood Pressure 144/96 139/79 O2 Sat by Pulse 99 97 Oximetry Disposition Clinical Impression: Sciatica Disposition: HOME SELF-CARE Condition: Fair Instructions: Chronic Back Pain (ED) Prescriptions: Methocarbamol [Robaxin-750] 750 mg PO TID PRN #30 tablet PRN Reason: pain predniSONE 60 mg PO DAILY #30 tab Is patient prescribed a controlled substance at d/c from ED?: No Referrals: Anuel Peters MD [Primary Care Provider] - 1-2 days Dennise Marcial DO [Doctor of Osteopathic Medicine] - 1-2 days
[2018-10-24] MEDS ORDERED: HYDROmorphone 1 MG/ML 1 ML SYRINGE IM STA (03:52)
[2018-10-24] MEDS ORDERED: predniSONE 20 MG TAB PO STA (04:38)
[2018-10-24 04:53] VITALS: BP 139/79; PULSE 88; RESP 18; TEMP 97.6
== END 2018-10-24 04:52 | disposition home or self-care (01) ==
LOC: EC 02:14
DX: M54.31 Sciatica, right side (principal); I10 Essential (primary) hypertension; E11.9 Type 2 diabetes mellitus without complications; K21.9 Gastro-esophageal reflux disease without esophagitis; F17.200 Nicotine dependence, unspecified, uncomplicated; Z88.1 Allergy status to other antibiotic agents; Z79.84 Long term (current) use of oral hypoglycemic drugs; Z79.899 Other long term (current) drug therapy; Z86.14 Personal history of Methicillin resistant Staphylococcus aureus infection; Z95.818 Presence of other cardiac implants and grafts
CPT/HCPCS: 72131; 99284; 96372 ×3; J2270; J2360; J1170; J7512

== ENCOUNTER 2018-10-26 08:14 | Emergency (ER) | payer BC ==
[2018-10-26 08:20] VITALS: RESP 18
[2018-10-26] MEDS ORDERED: ONDANSETRON 4 MG/2 ML VIAL IVP STA (08:41)
[2018-10-26] MEDS ORDERED: ORPHENADRINE 30 MG/ML 2 ML VIAL IVP STA (08:41)
[2018-10-26] MEDS ORDERED: HYDROmorphone 1 MG/ML 1 ML SYRINGE IVP STA (08:41)
[2018-10-26] MEDS ORDERED: KETOROLAC 30 MG/ML 1 ML VIAL IVP STA (08:41)
[2018-10-26] MEDS ORDERED: LIDOCAINE 5% PATCH TOPICAL STA (08:41)
[2018-10-26] MEDS ORDERED: CYCLOBENZAPRINE 10 MG TAB PO STA (08:59)
--- NOTE | 2018-10-26 09:25 | ED ---
General Adult HPI - General Chief complaint: Back Pain/Injury Stated complaint: Lumbar Pain Time Seen by Provider: 10/26/18 08:23 Source: patient, RN notes reviewed, old records reviewed Mode of arrival: ambulatory Limitations: no limitations - History of Present Illness Initial comments: Patient's a 47-year-old male with significant past medical history for chronic low back pain, presenting to the emergency room today by EMS, with chief complaint of increased lower back pain. He does admit that he feels numbness down both legs. Denies any bowel or bladder incontinence retention. Denies any saddle anesthesia. He does admit that he was seen here in the emergency room 2 days ago had a CT of his lumbar spine performed. He does admit that he was told that there were some slipped disc. Patient denies any new injury or trauma to the area. He does admit that he has an appointment with a neurosurgeon for his back on November 08. He states he's been taking Percocet at home for the pain with little relief. Patient states he has not been taking any anti-inflammatories. Patient does admit that he was given prescription for steroid still a day but has not gotten it filled. Patient denies any saddle anesthesia. States pain is worse with movements. Denies any other complaints. Patient denies any recent fever, chills, shortness of breath, chest pain, abdominal pain, nausea or vomiting, headaches or visual changes, or any other complaints. - Related Data Home Medications Medication Instructions Recorded Confirmed Lisinopril [Prinivil] 20 mg PO BID 03/27/14 10/24/18 Triamterene/Hydrochlorothiazid 1 tab PO DAILY 06/02/16 10/24/18 [Maxzide 37.5-25] cloNIDine HCL [Catapres] 0.2 mg PO BID 06/02/16 10/24/18 glipiZIDE [Glucotrol] 10 mg PO AC-BID 06/02/16 10/24/18 metFORMIN HCL [Glucophage] 1,000 mg PO AC-BID 06/02/16 10/24/18 Acetaminophen Tab [Tylenol] 650 mg PO Q4H PRN 07/04/18 10/24/18 Canagliflozin [Invokana] 100 mg PO DAILY 07/04/18 10/24/18 Omeprazole [PriLOSEC] 20 mg PO AC-BID 07/04/18 10/24/18 Previous Rx's Medication Instructions Recorded Carvedilol [Coreg] 50 mg PO BID 30 Days #120 tablet 07/09/18 Insulin NPH/Reg Insulin 70/30 5 unit SQ AC-BRKFST #1 vial 07/09/18 [humuLIN 70/30 VIAL] Insulin NPH/Reg Insulin 70/30 5 unit SQ HS #1 vial 07/09/18 [humuLIN 70/30 VIAL] Meclizine [Antivert] 25 mg PO DAILY #60 tab 07/09/18 amLODIPine [Norvasc] 5 mg PO DAILY 30 Days #30 tab 07/09/18 oxyCODONE-APAP 5-325MG [Percocet 1 each PO Q6HR PRN 2 Days #8 tab 07/09/18 5-325 mg] Methocarbamol [Robaxin-750] 750 mg PO TID PRN #30 tablet 10/24/18 predniSONE 60 mg PO DAILY #30 tab 10/24/18 Lidocaine [Lidoderm 5% Patch] 1 patch TRANSDERM DAILY #7 patch 10/26/18 Allergies Allergy/AdvReac Type Severity Reaction Status Date / Time vancomycin Allergy Unknown Verified 10/26/18 08:19 Review of Systems ROS Statement: Those systems with pertinent positive or pertinent negative responses have been documented in the HPI. ROS Other: All systems not noted in ROS Statement are negative. Past Medical History Past Medical History: Chest Pain / Angina, Diabetes Mellitus, GERD/Reflux, Hypertension Additional Past Medical History / Comment(s): NIDDM type II, hiatal hernia, nephrolithiasis, chronic low baci pain, bilateral leg numbness, current callous R great toe, past left olecranon bursitis. History of Any Multi-Drug Resistant Organisms: MRSA Date of last positivie culture/infection: 12/21/16 MDRO Source:: Left axilla Past Surgical History: Appendectomy, Cholecystectomy, Heart Catheterization, Orthopedic Surgery Additional Past Surgical History / Comment(s): RENAL ANGIOGRAM 2005 for HTN, cardiac cath 2005, LT WRIST TENDON REPAIR 2013, RT ROTATOR CUFF REPAIR, bilateral knee arthroscopies, I&D L axillae Past Anesthesia/Blood Transfusion Reactions: No Reported Reaction Past Psychological History: No Psychological Hx Reported Smoking Status: Current every day smoker - Past Family History Father Family Medical History: Diabetes Mellitus, Hypertension Mother Family Medical History: Cancer, Hypertension Additional Family Medical History / Comment(s): LUNG CANCER(NON SMOKER) General Exam - General Exam Comments Initial Comments: General: The patient is awake and alert, in no distress, and does not appear acutely ill. s. Neck: The neck is supple Cardiovascular: There is a regular rate and rhythm. No murmur, rub or gallop is appreciated. Respiratory: Lungs are clear to auscultation, respirations are non-labored, breath sounds are equal. No wheezes, stridor, rales, or rhonchi. Gastrointestinal: Abdomen soft nontender. Musculoskeletal: She has normal appearance thoracic or lumbar spine with no step-off deformity. He does have tenderness midline beginning in L1 and increases down to S1. Patient does have some paravertebral tenderness both left and right side of the lumbar. Sensations are intact. Pedal pulses equal bilaterally 2+. Neurological: A&O x 3. CN II-XII intact, There are no obvious motor or sensory deficits. Coordination appears grossly intact. Speech is normal. Skin: Skin is warm and dry and no rashes or lesions are noted. Psychiatric: Cooperative, appropriate mood & affect, normal judgment. Limitations: no limitations Course Vital Signs 10/26/18 08:16 Temperature 97.7 F Pulse Rate 81 Respiratory 18 Rate Blood Pressure 126/93 O2 Sat by Pulse 96 Oximetry Medical Decision Making - Medical Decision Making Patient did have recent visit to the ER and CT of the lumbar spine on 10-24-18 which showed a posterior disc herniation from L3-S1 without any significant impingement on the spinal canal. Patient admits to bilateral numbness in the lower extremities which he states is not new today. Patient denies and bowel or bladder retention or incontinence. Patient admits that he did not start taking steroids that were prescribe to him on his last visit. Vitals are stable. Patient reexamined and shows no signs of distress. His pain is worse with movements. Patient has been following up with family physician and has appointment for evaluation with a neurosurgeon November 08. Patient had an MRI in July 2018. Signs and symptoms of concern were discussed with the patient and reason for returning here to the emergency room. Patient will be discharged advised following up in the next 2 days with family physician and neurosurgeon. Advised return to emergency room symptoms increase or worsen or for any other concerns. He states understanding and is in agreement. Disposition Clinical Impression: Acute exacerbation of chronic low back pain Disposition: HOME SELF-CARE Condition: Good Instructions: Acute Low Back Pain (ED) Additional Instructions: Please use medications as discussed and follow-up with the family doctor or neurosurgeon Sunday. Please return here to the emergency room symptoms increase or worsen or for any other concerns. Prescriptions: Lidocaine [Lidoderm 5% Patch] 1 patch TRANSDERM DAILY #7 patch Is patient prescribed a controlled substance at d/c from ED?: No Referrals: Anuel Peters MD [Primary Care Provider] - 1-2 days Time of Disposition: 10:17
[2018-10-26 10:36] VITALS: BP 121/90; PULSE 72; TEMP 97
== END 2018-10-26 10:36 | disposition home or self-care (01) ==
LOC: EC 08:14
DX: G89.29 Other chronic pain (principal); M54.5 Low back pain; M51.27 Other intervertebral disc displacement, lumbosacral region; E11.9 Type 2 diabetes mellitus without complications; I10 Essential (primary) hypertension; K21.9 Gastro-esophageal reflux disease without esophagitis; F17.200 Nicotine dependence, unspecified, uncomplicated; Z88.1 Allergy status to other antibiotic agents; Z79.84 Long term (current) use of oral hypoglycemic drugs; Z79.899 Other long term (current) drug therapy; Z86.14 Personal history of Methicillin resistant Staphylococcus aureus infection; Z95.818 Presence of other cardiac implants and grafts; Z53.8 Procedure and treatment not carried out for other reasons
CPT/HCPCS: 99284; 96374; 96375 ×2; J2405; J1885; J1170

== ENCOUNTER 2018-11-10 22:34 | Inpatient (IN) | payer BC ==
--- NOTE | 2018-11-10 22:52 | ED ---
Chest Pain HPI - General Chief Complaint: Chest Pain Stated Complaint: Chest Pain SOB Time Seen by Provider: 11/10/18 22:45 Source: patient, family Mode of arrival: ambulatory Limitations: no limitations - History of Present Illness Initial Comments: This patient is a 47-year-old man who presents to be evaluated for left-sided chest pain. The patient states that the pain began "a day and a half ago" while he was at rest. He indicates that it is a heavy feeling. It does radiate to the neck. Patient states that when it came on it was severe. The patient's did give him aspirin which he states brought down to about half of that intensity. He has not otherwise noticed worsening or relieving factors. He did have a recent stress test through the [facility] which reportedly did show reversible ischemia. He was directed to follow-up with cardiology when he has finished his course of PICC line antibiotics. The patient is taking Rocephin 2 g daily through a PICC line as treatment for osteomyelitis/discitis of the L4-L5 spine. He is due to finish his course of antibiotics December. MD Complaint: chest pain Onset/Timin -: days(s) Onset: during rest Pain Location: left chest Pain Radiation: neck Severity: severe Quality: heaviness Consistency: constant Improves With: nothing Worsens With: nothing Treatments Prior to Arrival: none - Related Data Home Medications Medication Instructions Recorded Confirmed Lisinopril [Prinivil] 20 mg PO BID 03/27/14 10/24/18 Triamterene/Hydrochlorothiazid 1 tab PO DAILY 06/02/16 10/24/18 [Maxzide 37.5-25] cloNIDine HCL [Catapres] 0.2 mg PO BID 06/02/16 10/24/18 glipiZIDE [Glucotrol] 10 mg PO AC-BID 06/02/16 10/24/18 metFORMIN HCL [Glucophage] 1,000 mg PO AC-BID 06/02/16 10/24/18 Acetaminophen Tab [Tylenol] 650 mg PO Q4H PRN 07/04/18 10/24/18 Canagliflozin [Invokana] 100 mg PO DAILY 07/04/18 10/24/18 Omeprazole [PriLOSEC] 20 mg PO AC-BID 07/04/18 10/24/18 Previous Rx's Medication Instructions Recorded Carvedilol [Coreg] 50 mg PO BID 30 Days #120 tablet 07/09/18 Insulin NPH/Reg Insulin 70/30 5 unit SQ AC-BRKFST #1 vial 07/09/18 [humuLIN 70/30 VIAL] Insulin NPH/Reg Insulin 70/30 5 unit SQ HS #1 vial 07/09/18 [humuLIN 70/30 VIAL] Meclizine [Antivert] 25 mg PO DAILY #60 tab 07/09/18 amLODIPine [Norvasc] 5 mg PO DAILY 30 Days #30 tab 07/09/18 oxyCODONE-APAP 5-325MG [Percocet 1 each PO Q6HR PRN 2 Days #8 tab 07/09/18 5-325 mg] Methocarbamol [Robaxin-750] 750 mg PO TID PRN #30 tablet 10/24/18 predniSONE 60 mg PO DAILY #30 tab 10/24/18 Lidocaine [Lidoderm 5% Patch] 1 patch TRANSDERM DAILY #7 patch 10/26/18 Allergies Allergy/AdvReac Type Severity Reaction Status Date / Time vancomycin Allergy Unknown Verified 11/10/18 22:39 Review of Systems ROS Statement: Those systems with pertinent positive or pertinent negative responses have been documented in the HPI. ROS Other: All systems not noted in ROS Statement are negative. Constitutional: Denies: fever, chills Respiratory: Denies: cough, dyspnea Cardiovascular: Reports: chest pain. Denies: palpitations, orthopnea, edema, syncope Gastrointestinal: Denies: abdominal pain, nausea, vomiting Genitourinary: Denies: dysuria, hematuria Musculoskeletal: Denies: back pain Skin: Denies: rash Neurological: Denies: headache, weakness, numbness EKG Findings - EKG Results: EKG: interpreted by ERMD, sinus rhythm (With sinus arrhythmia, rate approximately 87 bpm), normal axis, normal QRS - Blocks, Lafferty, Hypertrophy, ST Abn: Repolarization changes or abnormalities: nonspecific abnormality, ST segment, and/or T wave Past Medical History Past Medical History: Chest Pain / Angina, Diabetes Mellitus, GERD/Reflux, Hypertension Additional Past Medical History / Comment(s): NIDDM type II, hiatal hernia, nephrolithiasis, chronic low baci pain, bilateral leg numbness, current callous R great toe, past left olecranon bursitis. History of Any Multi-Drug Resistant Organisms: MRSA Date of last positivie culture/infection: 12/21/16 MDRO Source:: Left axilla Past Surgical History: Appendectomy, Cholecystectomy, Heart Catheterization, Orthopedic Surgery Additional Past Surgical History / Comment(s): RENAL ANGIOGRAM 2006 for HTN, cardiac cath 2005, LT WRIST TENDON REPAIR 2013, RT ROTATOR CUFF REPAIR, bilateral knee arthroscopies, I&D L axillae Past Anesthesia/Blood Transfusion Reactions: No Reported Reaction Past Psychological History: No Psychological Hx Reported Smoking Status: Current every day smoker Past Alcohol Use History: None Reported Past Drug Use History: None Reported - Past Family History Father Family Medical History: Diabetes Mellitus, Hypertension Mother Family Medical History: Cancer, Hypertension Additional Family Medical History / Comment(s): LUNG CANCER(NON SMOKER) General Exam Limitations: no limitations General appearance: alert, in no apparent distress Head exam: Present: atraumatic, normocephalic Eye exam: Present: normal appearance. Absent: scleral icterus, conjunctival injection ENT exam: Present: normal oropharynx Neck exam: Present: normal inspection Respiratory exam: Present: normal lung sounds bilaterally. Absent: respiratory distress, wheezes, rales, rhonchi, stridor Cardiovascular Exam: Present: regular rate, normal rhythm, normal heart sounds. Absent: systolic murmur, diastolic murmur, rubs, gallop GI/Abdominal exam: Present: soft. Absent: distended, tenderness, guarding, rebound, mass Extremities exam: Present: normal inspection, normal capillary refill. Absent: pedal edema, calf tenderness Back exam: Present: normal inspection. Absent: CVA tenderness (R), CVA tenderness (L) Neurological exam: Present: alert Skin exam: Present: warm, dry, intact, normal color. Absent: rash Course Vital Signs 11/10/18 22:37 Temperature 98.3 F Pulse Rate 97 Respiratory 20 Rate Blood Pressure 182/117 O2 Sat by Pulse 99 Oximetry Disposition Clinical Impression: Acute coronary syndrome Disposition: ADMITTED IP TO THIS HOSP Condition: Fair Is patient prescribed a controlled substance at d/c from ED?: No Referrals: Anuel Peters MD [Primary Care Provider] - 1-2 days
[2018-11-10] MEDS ORDERED: NITROGLYCERIN OINT 1 INCH/GM PACKET TOPICAL STA (23:04)
[2018-11-10] MEDS ORDERED: MORPHINE SULFATE 4 MG/ML SYRINGE IV STA (23:04)
[2018-11-10] MEDS ORDERED: ENALAPRILAT 1.25 MG/ML 1 ML VIAL IVP STA (23:07)
[2018-11-10 23:16] LABS: Basophils # (A) 0.2 k/uL (0-0.2); Basophils % (A) 2 %; Eosinophils # (A) 0.1 k/uL (0-0.7); Eosinophils % (A) 1 %; HGB 13.4 gm/dL (13.0-17.5); Lymphocytes # (A) 1.8 k/uL (1.0-4.8); Lymphocytes % (A) 20 %; MCH 27.3 pg (25.0-35.0); MCHC 33.5 g/dL (31.0-37.0); MCV 81.3 fL (80.0-100.0); Mean Platelet Volume 6.4; Monocytes # (A) 0.5 k/uL (0-1.0); Monocytes % (A) 6 %; Neutrophils # (A) 6.1 k/uL (1.3-7.7); Neutrophils % (A) 69 %; Platelet Count 718 k/uL (150-450); RBC 4.92 m/uL (4.30-5.90); WBC 8.8 k/uL (3.8-10.6)
[2018-11-10] MEDS ORDERED: HEPARIN SODIUM,PORCINE 5,000 UNIT/ML 1 ML VIAL IV ONE (23:22)
[2018-11-10] MEDS ORDERED: HEPARIN SODIUM,PORCINE 5,000 UNIT/ML 1 ML VIAL IV PRN (23:22)
[2018-11-10 23:23] LABS: Partial Thromboplastin Time 29.4 sec (22.0-30.0); Prothrombin Time 10.6 sec (9.0-12.0)
[2018-11-10 23:24] LABS: ALT 26 U/L (21-72); AST 21 U/L (17-59); Albumin 3.2 g/dL (3.5-5.0); Alkaline Phosphatase 86 U/L (38-126); Anion Gap 10 mmol/L; Blood Urea Nitrogen 17 mg/dL (9-20); Calcium 9.2 mg/dL (8.4-10.2); Carbon Dioxide 27 mmol/L (22-30); Chloride 99 mmol/L (98-107); Glucose 211 mg/dL (74-99); Magnesium 1.5 mg/dL (1.6-2.3); Potassium 4.1 mmol/L (3.5-5.1); Sodium 136 mmol/L (137-145); Total Bilirubin 0.4 mg/dL (0.2-1.3); Total Protein 7.1 g/dL (6.3-8.2)
[2018-11-10] MEDS ORDERED: HEPARIN SOD,PORK IN 0.45% NACL 25,000 UNIT in 0.45% NACL 1 250ML.BAG IV SCH (23:30)
[2018-11-10 23:41] LABS: Creatine Kinase MB 1.2 ng/mL (0.0-2.4); Troponin I 0.027 ng/mL (0.000-0.034)
--- NOTE | 2018-11-10 23:54 | XR ---
EXAMINATION TYPE: XR chest 1V portable DATE OF EXAM: 11/10/2018 COMPARISON: 12/22/2013 HISTORY: Chest pain TECHNIQUE: Single frontal view of the chest is obtained. FINDINGS: Heart and mediastinum are normal. Lungs are clear of infiltrate. There is no pleural effus ion. There are chest leads. Bony thorax is intact. IMPRESSION: Normal chest. No change.
[2018-11-10] MEDS ORDERED: HYDROmorphone 1 MG/ML 1 ML SYRINGE IVP STA (23:56)
[2018-11-11] MEDS ORDERED: MORPHINE SULFATE 4 MG/ML SYRINGE IV PRN (00:33)
[2018-11-11] MEDS ORDERED: NITROGLYCERIN SL TABS 0.4 MG TAB SUBLINGUAL PRN ×3 (00:33→14:34)
[2018-11-11] MEDS ORDERED: ACETAMINOPHEN TAB 325 MG TAB PO PRN (00:35)
[2018-11-11] MEDS ORDERED: HYDROmorphone 1 MG/ML 1 ML SYRINGE IVP STA ×2 (00:58→01:13)
[2018-11-11] MEDS ORDERED: HYDROmorphone 1 MG/ML 1 ML SYRINGE IVP PRN (01:08)
[2018-11-11] MEDS ORDERED: HYDROmorphone 2 MG/ML 1 ML SYRINGE IVP STA (01:15)
[2018-11-11 06:01] LABS: Basophils # (A) 0.2 k/uL (0-0.2); Basophils % (A) 3 %; Eosinophils % (A) 1 %; HGB 12.8 gm/dL (13.0-17.5); Lymphocytes # (A) 1.8 k/uL (1.0-4.8); Lymphocytes % (A) 22 %; MCH 27.2 pg (25.0-35.0); MCHC 32.9 g/dL (31.0-37.0); MCV 82.5 fL (80.0-100.0); Mean Platelet Volume 6.3; Monocytes # (A) 0.4 k/uL (0-1.0); Monocytes % (A) 5 %; Neutrophils # (A) 5.3 k/uL (1.3-7.7); Neutrophils % (A) 67 %; Platelet Count 694 k/uL (150-450); RBC 4.72 m/uL (4.30-5.90); RDW 12.9 % (11.5-15.5); WBC 7.9 k/uL (3.8-10.6)
[2018-11-11 06:25] LABS: Glucose,Whole Blood 205 mg/dL (75-99)
[2018-11-11 06:31] LABS: Creatine Kinase MB 0.8 ng/mL (0.0-2.4); Troponin I 0.028 ng/mL (0.000-0.034)
[2018-11-11] MEDS: CARVEDILOL 12.5 MG TAB PO SCH ×2 (06:36→17:05)
[2018-11-11] MEDS: glipiZIDE 10 MG TAB PO SCH ×2 (06:36→17:05)
[2018-11-11] MEDS: NON-FORMULARY DRUG (Canagliflozin [Invokana] 100 MG) PO SCH (06:36)
[2018-11-11] MEDS ORDERED: metFORMIN 500 MG TAB PO SCH (07:30)
[2018-11-11] MEDS ORDERED: INSULN ASP PRT/INSULIN ASPART 100 UNIT/ML 10 ML VIAL SQ SCH (07:30)
--- NOTE | 2018-11-11 08:29 | P.CRDCN ---
History of Present Illness Consult date: 11/11/18 Requesting physician: Harris Coyne Consult reason: chest pain Chief complaint: Chest pain History of present illness: Is a pleasant 47-year-old gentleman who has known history of diabetes for several years, hypertension, hyperlipidemia, he was also a smoker states he quit smoking about a 3-4 weeks ago, family history of premature coronary artery disease in his father who had a myocardial infarction in his 60s. Patient also has history of chronic back pain and most recently was diagnosed with sepsis and associated bacteremia with osteomyelitis secondary to group B Streptococcus for which the patient is receiving IV antibiotics at home. Patient also had a stress test performed at [facility] on November 02 which showed reversible ischemia in the circumflex distribution. He presents to the hospital now on this occasion with symptoms of midsternal chest pressure and heaviness, according to the patient he has been having symptoms off and on for the past couple of days. He describes his discomfort as a heaviness with radiation into the neck and jaw area. Patient states that he did take an aspirin. According to the patient, his course of antibiotics will be continued until early December. His EKG on presentation here showed a normal sinus rhythm with mild ST changes noted in leads 1 and aVL. These changes were also noted on prior EKG and were more pronounced at that time. Chest x-ray is normal. Blood pressure on arrival here 182/117, heart rate in the 90s, 99% on room air. Blood pressure this morning 150/100 with a heart rate in the 80s, 97% on room air. White blood cell count 7.9, hemoglobin 12.8, platelet count 694. Sodium 136, potassium 4.1, BUN 17 and creatinine 0.7. Magnesium 1.5. Troponins 0.027, 0.028. At the time of my examination this morning, patient is complaining of lower back discomfort, denies any chest discomfort at present. Past Medical History Past Medical History: Chest Pain / Angina, Diabetes Mellitus, GERD/Reflux, Hypertension, Syncope Additional Past Medical History / Comment(s): NIDDM type II, hiatal hernia, nephrolithiasis, chronic low back pain, bilateral leg numbness, R great toe aibetic foot ulcer, past left olecranon bursitis, osteomyelitis in L4-L5 w/ current treatment via PICC line History of Any Multi-Drug Resistant Organisms: MRSA Date of last positivie culture/infection: 12/21/16 MDRO Source:: Left axilla Past Surgical History: Appendectomy, Cholecystectomy, Heart Catheterization, Orthopedic Surgery Additional Past Surgical History / Comment(s): RENAL ANGIOGRAM 2005 for HTN, cardiac cath 2005, LT WRIST TENDON REPAIR 2013, RT ROTATOR CUFF REPAIR, bilateral knee arthroscopies, I&D L axillae Past Anesthesia/Blood Transfusion Reactions: No Reported Reaction Smoking Status: Current every day smoker - Past Family History Father Family Medical History: Coronary Artery Disease (CAD), Diabetes Mellitus, Hypertension Additional Family Medical History / Comment(s): pt. reports his father had a four vessel CABG Mother Family Medical History: Cancer, Hypertension Additional Family Medical History / Comment(s): LUNG CANCER(NON SMOKER) Medications and Allergies Home Medications Medication Instructions Recorded Confirmed Type metFORMIN HCL [Glucophage] 1,000 mg PO AC-BID 06/02/16 11/11/18 History Acetaminophen Tab [Tylenol] 650 mg PO Q6H PRN 07/04/18 11/11/18 History Aspirin EC [Ecotrin Low Dose] 81 mg PO DAILY 11/11/18 11/11/18 History Atorvastatin [Lipitor] 80 mg PO HS 11/11/18 11/11/18 History Carvedilol 12.5 mg PO BID 11/11/18 11/11/18 History Doxycycline [Vibramycin] 100 mg PO BID 11/11/18 11/11/18 History Insulin NPH/Reg Insulin 70/30 20 unit SQ BID 11/11/18 11/11/18 History [humuLIN 70/30 VIAL] Losartan Potassium 100 mg PO DAILY 11/11/18 11/11/18 History Minoxidil [Loniten] 2.5 mg PO DAILY 11/11/18 11/11/18 History Triamterene/Hydrochlorothiazid 1 tab PO DAILY 11/11/18 11/11/18 History [Triamterene-Hctz 37.5-25 mg Tb] cefTRIAXone [Rocephin] 2,000 mg IVPB Q24HR 11/11/18 11/11/18 History oxyCODONE HCL/ACETAMINOPHEN 1 tab PO QID PRN 11/11/18 11/11/18 History [Percocet 7.5-325 mg] Allergies Allergy/AdvReac Type Severity Reaction Status Date / Time vancomycin Allergy Unknown Verified 11/11/18 07:40 Physical Exam Vitals: Vital Signs Temp Pulse Pulse Resp BP BP Pulse Ox 11/11/18 05:30 85 16 11/11/18 05:16 98.3 F 85 16 151/101 97 11/11/18 01:30 98.2 F 78 18 164/99 96 11/11/18 01:00 86 13 150/98 95 11/11/18 00:30 80 13 165/107 95 11/11/18 00:00 78 12 158/106 99 11/10/18 23:00 89 12 184/143 98 11/10/18 22:37 98.3 F 97 20 182/117 99 Intake and Output 11/10/18 11/11/18 11/11/18 22:59 06:59 14:59 Intake Total 390 68.667 Balance 390 68.667 Intake: IV 100 0.9 100 Intake, IV Titration 50 68.667 Amount Heparin Sod,Pork in 0.45% 50 68.667 NaCl 25,000 unit In 0.45 % NaCl 1 250ml.bag @ 10. 26 UNITS/KG/HR 10 mls/hr IV .Q24H [facility] Rx#: [id number] Oral 240 Other: Voiding Method Toilet Urinal # Voids 3 Weight 97.522 kg 99 kg PHYSICAL EXAMINATION: GENERAL: 47-year-old gentleman in no acute distress at the time of my examination HEENT: Head is atraumatic, normocephalic. Pupils equal, round. Sclera anicteric. Conjunctiva are clear. Mucous membranes of the mouth are moist. Neck is supple. There is no elevated jugular venous pressure. No carotid bruit is heard. HEART EXAMINATION: Heart S1, S2 normal. No murmur or gallop heard. CHEST EXAMINATION: Lungs are clear to auscultation and precussion. No chest wall tenderness is noted on palpation or with deep breathing. ABDOMEN: Soft, nontender. Bowel sounds are heard. No organomegaly noted. EXTREMITIES: 2+ peripheral pulses to the right lower extremity, dressing in place to the right great toe, Doppler to one plus pedal pulse to the left lower extremity with no evidence of peripheral edema and no calf tenderness noted. NEUROLOGIC patient is awake, alert and oriented 3 . . Results 11/11/18 05:20 11/10/18 22:50 Cardiac Enzymes 11/10/18 11/10/18 11/11/18 Range/Units 22:50 22:50 05:20 AST 21 (17-59) U/L CK-MB (CK-2) 1.2 0.8 (0.0-2.4) ng/mL Troponin I 0.027 0.028 (0.000-0.034) ng/mL Coagulation 11/10/18 11/11/18 Range/Units 22:50 05:20 PT 10.6 (9.0-12.0) sec APTT 29.4 27.5 (22.0-30.0) sec CBC 11/10/18 11/11/18 Range/Units 22:50 05:20 WBC 8.8 7.9 (3.8-10.6) k/uL RBC 4.92 4.72 (4.30-5.90) m/uL Hgb 13.4 12.8 L (13.0-17.5) gm/dL Hct 40.0 39.0 (39.0-53.0) % Plt Count 718 H 694 H (150-450) k/uL Comprehensive Metabolic Panel 11/10/18 Range/Units 22:50 Sodium 136 L (137-145) mmol/L Potassium 4.1 (3.5-5.1) mmol/L Chloride 99 (98-107) mmol/L Carbon Dioxide 27 (22-30) mmol/L BUN 17 (9-20) mg/dL Creatinine 0.72 (0.66-1.25) mg/dL Glucose 211 H (74-99) mg/dL Calcium 9.2 (8.4-10.2) mg/dL AST 21 (17-59) U/L ALT 26 (21-72) U/L Alkaline Phosphatase 86 (38-126) U/L Total Protein 7.1 (6.3-8.2) g/dL Albumin 3.2 L (3.5-5.0) g/dL Current Medications Generic Name Dose Route Start Last Admin Trade Name Freq PRN Reason Stop Dose Admin Acetaminophen 650 mg 11/11/18 00:35 Tylenol Tab PO Q4H PRN Pain Amlodipine Besylate 5 mg 11/11/18 09:00 Norvasc PO DAILY [facility] Aspirin 325 mg 11/12/18 09:00 Aspirin PO DAILY [facility] Carvedilol 50 mg 11/11/18 07:30 11/11/18 06:36 Coreg PO Not Given BID-W/MEALS [facility] Clonidine 0.2 mg 11/11/18 09:00 Catapres PO BID [facility] Glipizide 10 mg 11/11/18 07:30 11/11/18 06:36 Glucotrol PO Not Given AC-BID [facility] Heparin Sodium (Porcine) 0 unit 11/10/18 23:22 Heparin IV PER PROTOCOL PRN Low PTT Protocol Hydromorphone HCl 1 mg 11/11/18 01:08 11/11/18 05:10 Dilaudid IVP 1 mg Q4HR PRN Administration Pain Heparin Sodium/Sodium Chloride 250 mls @ 10 mls/hr 11/10/18 23:30 11/11/18 07 :00 25,000 unit/ Sodium Chloride IV 13.26 units/kg/hr .Q24H [facility] 12.93 mls/hr Titration Protocol 10.26 UNITS/KG/HR Ceftriaxone Sodium 2,000 mg/ 100 mls @ 100 mls/hr 11/11/18 09:00 Sodium Chloride IVPB DAILY [facility] Insulin Aspart 5 unit 11/11/18 07:30 11/11/18 06:36 Novolog Mix 70-30 Vial SQ Not Given BID@0730,2100 [facility] Lisinopril 20 mg 11/11/18 09:00 Zestril PO BID [facility] Meclizine HCl 25 mg 11/11/18 09:00 Antivert PO DAILY [facility] Metformin HCl 1,000 mg 11/11/18 07:30 Glucophage PO BID-W/MEALS [facility] Methocarbamol 750 mg 11/11/18 00:35 Robaxin PO TID PRN pain Morphine Sulfate 4 mg 11/11/18 00:33 Morphine Sulfate (Inj) IV Q5M PRN Chest Pain Nitroglycerin 0.4 mg 11/11/18 00:33 Nitrostat SUBLINGUAL Q5M PRN Chest Pain Non-Formulary Medication 100 mg 11/11/18 07:30 11/11/18 06:36 Canagliflozin [Invokana] PO Not Given AC-BRKFST [facility] Oxycodone/Acetaminophen 1 each 11/11/18 00:35 Percocet 5-325 PO Q6HR PRN Pain Pantoprazole Sodium 40 mg 11/11/18 09:00 Protonix PO DAILY [facility] Triamterene/HCTZ 1 each 11/11/18 09:00 Maxzide-25 PO DAILY [facility] Intake and Output 11/10/18 11/11/18 11/11/18 22:59 06:59 14:59 Intake Total 390 68.667 Balance 390 68.667 Intake: IV 100 0.9 100 Intake, IV Titration 50 68.667 Amount Heparin Sod,Pork in 0.45% 50 68.667 NaCl 25,000 unit In 0.45 % NaCl 1 250ml.bag @ 10. 26 UNITS/KG/HR 10 mls/hr IV .Q24H [facility] Rx#: [id number] Oral 240 Other: Voiding Method Toilet Urinal # Voids 3 Weight 97.522 kg 99 kg 11/11/18 05:20 11/10/18 22:50 EKG Interpretations (text) EKG normal sinus rhythm with ST-T wave changes noted in the lateral leads Assessment and Plan Plan: Assessment and plan #1 progressive chest discomfort suggestive of possible angina, troponins 0.0-7, 0.028. EKG shows normal sinus rhythm with mild EKG changes noted in the lateral leads. Patient did recently undergo a stress test which was positive for reversible ischemia in the circumflex distribution #2 accelerated hypertension #3 diabetes #4 hyperlipidemia #5 nicotine dependence, patient states he quit smoking 3-4 weeks ago #6 family history of premature coronary artery disease in his father #6 osteomyelitis with associated bacteremia secondary to group B streptococcus. Plan We will obtain an echocardiogram with Doppler study. Continue IV heparin. Continue aspirin, Coreg, Lipitor, lisinopril 20 mg one tablet by mouth twice a day, Norvasc has also been noted this morning for more optimal blood pressure control. Patient has been advised to undergo cardiac catheterization, the risks and the benefits were explained to the patient in detail and he is willing to proceed. This will be performed today by Dr. Ha. Further recommendations will be based on these findings and the patient's clinical course. DNP note has been reviewed, I agree with a documented findings and plan of care. Patient was seen and examined.
[2018-11-11] MEDS ORDERED: ALPRAZolam 0.5 MG TAB PO PRN (08:30)
[2018-11-11] MEDS ORDERED: ATORVASTATIN 80 MG TAB PO STA (08:30)
[2018-11-11] MEDS ORDERED: ASPIRIN 325 MG TAB PO STA (08:30)
[2018-11-11] MEDS ORDERED: ALPRAZolam 0.25 MG TAB PO PRN (08:30)
[2018-11-11] MEDS ORDERED: SODIUM CHLORIDE 0.9% 1,000 ML in EMPTY BAG 1 BAG IV ONE (08:30)
--- NOTE | 2018-11-11 08:46 | P.HPIM ---
History of Present Illness This is a pleasant 47 years old male with past medical history of diabetes mellitus, coronary artery disease, hypertension, GERD, hiatal hernia and kidney stone, status post cardiac cath. He sees Dr. Quinteros the outpatient setting.he was recently diagnosed with back infection and started on antibiotics after report of system about 2 weeks ago. This time he presents because of central chest pain radiating to the left neck, felt like tightness about 7-8/10 in severity associated with dyspnea, sweating but no nausea or vomiting. He got one-time dose of aspirin by his and his pain come down to half. Patient Vitas looks stable, blood pressure is slightly elevated at 151/101. CBC unremarkable. Magnesium low at 1.5, sodium 136. Potassium 4.1. Creatinine 0.7. Chest x-ray: No acute process. In the emergency room patient was started on heparin drip. He is already on aspirin. [employer] evaluated the patient and planning to do cardiac cath for him today. Review of Systems CONSTITUTIONAL: No fever, no malaise, no fatigue. HEENT: No recent visual problems or hearing problems. Denied any sore throat. CARDIOVASCULAR: No orthopnea, PND, no palpitations, no syncope. PULMONARY: No shortness of breath, no cough, no hemoptysis. GASTROINTESTINAL: No diarrhea, no nausea, no vomiting, no abdominal pain. Normoactive bowel sounds. NEUROLOGICAL: No headaches, no weakness, no numbness. HEMATOLOGICAL: Denies any bleeding or petechiae. GENITOURINARY: Denies any burning micturition, frequency, or urgency. MUSCULOSKELETAL/RHEUMATOLOGICAL: Denies any joint pain, swelling, or any muscle pain. ENDOCRINE: Denies any polyuria or polydipsia. Past Medical History Past Medical History: Chest Pain / Angina, Diabetes Mellitus, GERD/Reflux, Hypertension, Syncope Additional Past Medical History / Comment(s): NIDDM type II, hiatal hernia, nephrolithiasis, chronic low back pain, bilateral leg numbness, R great toe aibetic foot ulcer, past left olecranon bursitis, osteomyelitis in L4-L5 w/ current treatment via PICC line History of Any Multi-Drug Resistant Organisms: MRSA Date of last positivie culture/infection: 12/21/16 MDRO Source:: Left axilla Past Surgical History: Appendectomy, Cholecystectomy, Heart Catheterization, Orthopedic Surgery Additional Past Surgical History / Comment(s): RENAL ANGIOGRAM 2005 for HTN, cardiac cath 2005, LT WRIST TENDON REPAIR 2013, RT ROTATOR CUFF REPAIR, bilateral knee arthroscopies, I&D L axillae Past Anesthesia/Blood Transfusion Reactions: No Reported Reaction Smoking Status: Current every day smoker - Past Family History Father Family Medical History: Coronary Artery Disease (CAD), Diabetes Mellitus, Hypertension Additional Family Medical History / Comment(s): pt. reports his father had a four vessel CABG Mother Family Medical History: Cancer, Hypertension Additional Family Medical History / Comment(s): LUNG CANCER(NON SMOKER) Medications and Allergies Home Medications Medication Instructions Recorded Confirmed Type metFORMIN HCL [Glucophage] 1,000 mg PO AC-BID 06/02/16 11/11/18 History Acetaminophen Tab [Tylenol] 650 mg PO Q6H PRN 07/04/18 11/11/18 History Aspirin EC [Ecotrin Low Dose] 81 mg PO DAILY 11/11/18 11/11/18 History Atorvastatin [Lipitor] 80 mg PO HS 11/11/18 11/11/18 History Carvedilol 12.5 mg PO BID 11/11/18 11/11/18 History Doxycycline [Vibramycin] 100 mg PO BID 11/11/18 11/11/18 History Insulin NPH/Reg Insulin 70/30 20 unit SQ BID 11/11/18 11/11/18 History [humuLIN 70/30 VIAL] Losartan Potassium 100 mg PO DAILY 11/11/18 11/11/18 History Minoxidil [Loniten] 2.5 mg PO DAILY 11/11/18 11/11/18 History Triamterene/Hydrochlorothiazid 1 tab PO DAILY 11/11/18 11/11/18 History [Triamterene-Hctz 37.5-25 mg Tb] cefTRIAXone [Rocephin] 2,000 mg IVPB Q24HR 11/11/18 11/11/18 History oxyCODONE HCL/ACETAMINOPHEN 1 tab PO QID PRN 11/11/18 11/11/18 History [Percocet 7.5-325 mg] Allergies Allergy/AdvReac Type Severity Reaction Status Date / Time vancomycin Allergy Unknown Verified 11/11/18 07:40 Physical Exam Vitals: Vital Signs Temp Pulse Pulse Resp BP BP Pulse Ox 11/11/18 05:30 85 16 11/11/18 05:16 98.3 F 85 16 151/101 97 11/11/18 01:30 98.2 F 78 18 164/99 96 11/11/18 01:00 86 13 150/98 95 11/11/18 00:30 80 13 165/107 95 11/11/18 00:00 78 12 158/106 99 11/10/18 23:00 89 12 184/143 98 11/10/18 22:37 98.3 F 97 20 182/117 99 Intake and Output 11/10/18 11/11/18 11/11/18 22:59 06:59 14:59 Intake Total 390 68.667 Balance 390 68.667 Intake: IV 100 0.9 100 Intake, IV Titration 50 68.667 Amount Heparin Sod,Pork in 0.45% 50 68.667 NaCl 25,000 unit In 0.45 % NaCl 1 250ml.bag @ 10. 26 UNITS/KG/HR 10 mls/hr IV .Q24H [facility] Rx#: [id number] Oral 240 Other: Voiding Method Toilet Urinal # Voids 3 Weight 97.522 kg 99 kg GENERAL: The patient is alert and oriented x3, not in any acute distress. Well developed, well nourished. HEENT: Pupils are round and equally reacting to light. EOMI. No scleral icterus. No conjunctival pallor. Normocephalic, atraumatic. No pharyngeal erythema. No thyromegaly. CARDIOVASCULAR: S1 and S2 present. No murmurs, rubs, or gallops. PULMONARY: Chest is clear to auscultation, no wheezing or crackles. ABDOMEN: Soft, nontender, nondistended, normoactive bowel sounds. No palpable organomegaly. MUSCULOSKELETAL: No joint swelling or deformity. EXTREMITIES: No cyanosis, clubbing, or pedal edema. NEUROLOGICAL: Gross neurological examination did not reveal any focal deficits. SKIN: No rashes. Results CBC & Chem 7: 11/11/18 05:20 11/10/18 22:50 Labs: Abnormal Lab Results - Last 24 Hours (Table) 11/10/18 11/10/18 11/10/18 Range/Units 22:50 22:50 22:50 Hgb (13.0-17.5) gm/dL Plt Count 718 H (150-450) k/uL Sodium 136 L (137-145) mmol/L Glucose 211 H (74-99) mg/dL POC Glucose (mg/dL) (75-99) mg/dL Magnesium 1.5 L (1.6-2.3) mg/dL Total Creatine Kinase 36 L (55-170) U/L Albumin 3.2 L (3.5-5.0) g/dL 11/11/18 11/11/18 11/11/18 Range/Units 05:20 05:20 06:24 Hgb 12.8 L (13.0-17.5) gm/dL Plt Count 694 H (150-450) k/uL Sodium (137-145) mmol/L Glucose (74-99) mg/dL POC Glucose (mg/dL) 205 H (75-99) mg/dL Magnesium (1.6-2.3) mg/dL Total Creatine Kinase 29 L (55-170) U/L Albumin (3.5-5.0) g/dL Thrombosis Risk Factor Assmnt - Choose All That Apply Any of the Below Risk Factors Present?: Yes Each Factor Represents 1 point: Age 41-60 years, Obesity (BMI >25), Sepsis (< 1month) Other Risk Factors: No Other congenital or acquired thrombophilia - If yes, enter type in comment: No Thrombosis Risk Factor Assessment Total Risk Factor Score: 3 Thrombosis Risk Factor Assessment Level: Moderate Risk Assessment and Plan Assessment: Chest pain, rule out cardiac versus other causes. History of coronary artery disease, status post cardiac cath Recent history of osteomyelitis/discitis of the L4-L5 spine. Currently on antibiotic. History of diabetes mellitus, type II Essential hypertension History of GERD History of rectus hernia History of kidney stone Plan: This is a pleasant 47 years old male who presents because of chest pain. We will do cardiac enzymes. EKG. Cardiology consult. Pain management. Labs and medication were reviewed.. Continue same treatment. Continue with symptomatic treatment. Resume home medication. Monitor lytes and vitals. DVT and GI prophylaxis. Further recommendations of the clinical course of the patient DVT prophylaxis: heparin GI Prophylaxis: Pepcid Prognosis is guarded
[2018-11-11] MEDS ORDERED: FAMOTIDINE 20 MG/2 ML VIAL IV SCH (09:00)
[2018-11-11] MEDS ORDERED: LISINOPRIL 20 MG TAB PO SCH (09:00)
[2018-11-11] MEDS ORDERED: amLODIPine 5 MG TAB PO SCH (09:00)
[2018-11-11] MEDS ORDERED: cloNIDine HCL 0.2 MG TAB PO SCH (09:00)
[2018-11-11] MEDS: HYDROmorphone 1 MG/ML 1 ML SYRINGE IVP PRN ×4 (09:01→23:52)
[2018-11-11] MEDS: PANTOPRAZOLE 40 MG TABLET PO SCH (09:03)
[2018-11-11] MEDS: MECLIZINE 25 MG TAB PO SCH (09:04)
[2018-11-11] MEDS: METHOCARBAMOL 750 MG TAB PO PRN (09:04)
[2018-11-11] MEDS: LOSARTAN 50 MG TAB PO SCH (09:18)
[2018-11-11] MEDS: cefTRIAXone 2,000 MG in SODIUM CHLORIDE 0.9% 100 ML IVPB SCH (09:18)
[2018-11-11] MEDS: TRIAMTERENE-HCTZ 37.5-25MG 1 EACH TAB PO SCH (10:38)
[2018-11-11 11:12] LABS: Glucose,Whole Blood 245 mg/dL (75-99)
--- NOTE | 2018-11-11 12:08 | ECHOF ---
Referral Reason:chest pain MEASUREMENTS -------- HEIGHT: 185.4 cm WEIGHT: 98.9 kg BP: RVIDd: 3.4 cm (< 3.3) IVSd: 1.4 cm (0.6 - 1.1) LVIDd: 3.5 cm (3.9 - 5.3) LVPWd: 1.3 cm (0.6 - 1.1) IVSs: 1.8 cm LVIDs: 2.2 cm LVPWs: 2.0 cm LAESV Index (A-L): 13.50 ml/m Ao Diam: 3.7 cm (2.0 - 3.7) AV Cusp: 2.4 cm (1.5 - 2.6) LA Diam: 3.2 cm (2.7 - 3.8) MV EXCURSION: 20.130 mm (> 18.000) MV EF SLOPE: 47 mm/s (70 - 150) EPSS: 0.2 cm MV E Pete: 0.59 m/s MV DecT: 166 ms MV A Pete: 0.67 m/s MV E/A Ratio: 0.88 RAP: 5.00 mmHg RVSP: 11.08 mmHg FINDINGS -------- Sinus rhythm. This was a technically good study. The left ventricular size is normal. There is moderate concentric left ventricular hypertrophy. O verall left ventricular systolic function is normal with, an EF between 55 - 60 %. The right ventricle is mildly enlarged. Normal LA size by volume 22+/-6 ml/m2. The right atrium is normal in size. The aortic valve is trileaflet, and appears structurally normal. No aortic stenosis or regurgitation. The mitral valve leaflets are mildly thickened. Mild mitral regurgitation is present. Mild tricuspid regurgitation present. The right ventricular systolic pressure, as measured by Doppl er, is 11.08mmHg. Pulmonic valve appears structurally normal. The aortic root size is normal. Normal inferior vena cava with normal inspiratory collapse consistent with estimated right atrial pre ssure of 5 mmHg. The pericardium is normal. There is a trivial pericardial effusion present. CONCLUSIONS -------- 1. Sinus rhythm. 2. This was a technically good study. 3. The left ventricular size is normal. 4. There is moderate concentric left ventricular hypertrophy. 5. Overall left ventricular systolic function is normal with, an EF between 55 - 60 %. 6. The right ventricle is mildly enlarged. 7. Normal LA size by volume 22+/-6 ml/m2. 8. The right atrium is normal in size. 9. The aortic valve is trileaflet, and appears structurally normal. No aortic stenosis or regurgitati on. 10. The mitral valve leaflets are mildly thickened. 11. Mild mitral regurgitation is present. 12. Mild tricuspid regurgitation present. 13. The right ventricular systolic pressure, as measured by Doppler, is 11.08mmHg. 14. Pulmonic valve appears structurally normal. 15. The aortic root size is normal. 16. Normal inferior vena cava with normal inspiratory collapse consistent with estimated right atrial pressure of 5 mmHg. 17. The pericardium is normal. 18. There is a trivial pericardial effusion present. MANAGER TECHNOLOGY: Sarah Beth Ambrose RDCS
[2018-11-11 12:25] LABS: Creatine Kinase MB 0.9 ng/mL (0.0-2.4); Troponin I 0.024 ng/mL (0.000-0.034)
[2018-11-11] MEDS ORDERED: VERAPAMIL 2.5 MG/ML 2 ML AMP ONE (13:04)
[2018-11-11] MEDS ORDERED: fentaNYL (PF) 50 MCG/ML 2 ML AMP ONE (13:04)
[2018-11-11] MEDS ORDERED: HEPARIN SODIUM 1,000 UN/ML (10ML VL) ONE (13:04)
[2018-11-11] MEDS ORDERED: LIDOCAINE 1% INJ 10MG/ML (20 ML MDV) ONE (13:04)
[2018-11-11] MEDS ORDERED: IV FLUID CONTINUATION 750 ML IV ONE (13:15)
[2018-11-11] MEDS ORDERED: fentaNYL (PF) 50 MCG/ML 2 ML AMP IV ONE (13:15)
[2018-11-11] MEDS ORDERED: LIDOCAINE 1% INJ 10MG/ML (20 ML MDV) SQ ONE (13:34)
[2018-11-11] MEDS ORDERED: MIDAZOLAM 2 MG/2 ML VIAL IV ONE (13:36)
[2018-11-11] MEDS ORDERED: VERAPAMIL SYRINGE (5 MG/10 ML) INTRAARTER ONE (13:37)
[2018-11-11] MEDS ORDERED: PRASUGREL 10 MG TAB ONE (13:47)
[2018-11-11] MEDS ORDERED: BIVALIRUDIN BOLUS 250 MG/50 ML IV ONE (13:47)
[2018-11-11] MEDS ORDERED: BIVALIRUDIN 250 MG in SODIUM CHLORIDE 0.9% 40 ML IV ONE (13:48)
[2018-11-11] MEDS ORDERED: PRASUGREL 10 MG TAB PO ONE (13:49)
[2018-11-11] MEDS ORDERED: IOPAMIDOL-370 125ML BTL INJ ONE (14:01)
[2018-11-11] MEDS ORDERED: NITROGLYCERIN 1000MCG/10ML SYRINGE INTRACORON ONE (14:09)
[2018-11-11] MEDS ORDERED: IOPAMIDOL-250 100ML BTL INTRAARTER ONE (14:13)
[2018-11-11] MEDS ORDERED: IOPAMIDOL-370 50ML BTL INJ ONE (14:24)
[2018-11-11] MEDS ORDERED: ZOLPIDEM 5 MG TAB PO PRN (14:34)
[2018-11-11] MEDS ORDERED: ATROPINE SULFATE 0.1 MG/ML 10ML SYRINGE IV PRN (14:34)
[2018-11-11] MEDS ORDERED: RX INFO: IV CONTRAST WAS GIVEN 1 EACH MISC MISCELLANE PRN (14:34)
[2018-11-11] MEDS ORDERED: MAG HYDROX/AL HYDROX/SIMETH 30 ML CUP PO PRN (14:34)
[2018-11-11] MEDS ORDERED: SODIUM CHLORIDE 0.9% 1,000 ML IV SCH (14:45)
[2018-11-11] MEDS ORDERED: amLODIPine 5 MG TAB PO STA (15:07)
--- NOTE | 2018-11-11 16:06 | CC ---
CARDIAC CATHETERIZATION REPORT Mr. Gonzalez is a 47-year-old male with history of hypertension, hyperlipidemia, diabetes mellitus, who presented with symptoms of chest discomfort. He has underwent a myocardial perfusion imaging at [facility] recently that revealed inferolateral wall ischemia. In view of that and his multiple risk factors, recommendation made regarding cardiac catheterization the procedure as well as risks and complications were discussed with the patient, who is in full understanding and agreement. PROCEDURE: Patient was brought to bobcat driver/labor in a fasting state after receiving fentanyl and Benadryl and achieving moderate conscious sedated state. Using Xylocaine anesthesia and Seldinger technique, a 6-Central African sheath was introduced in the right radial artery. Selective right and left coronary angiography was performed using 5-Central African 3 and half bend right and left Miri catheter. Multiple views of the coronary artery including hemiaxial views were obtained. Following that a 5-Central African right Miri was used to cross the aortic valve and pressures were calculated. Following the catheters were removed and images were reviewed. FINDINGS: Left main: This is a large-sized vessel trifurcating into the left circumflex, left anterior descending artery and ramus intermedius. Left main coronary artery has no evidence of high-grade stenosis. Left anterior descending artery: This is a large-sized vessel reaching toward the apex, tapers down in distal third, giving rise to a moderately sized diagonal branch proximally. After the takeoff of the first septal perforators, there is a 70% eccentric lesion. There is another area of stenosis involving the apical segment of the LAD, but the vessel is very small at that segment. The diagonal branch has a 70% stenosis in the mid segment. Left circumflex: This is a nondominant vessel small in caliber giving rise to an obtuse marginal branch. Prior to the obtuse marginal branch, there is 70% to 80% stenosis. RIGHT CORONARY ARTERY: This is a large dominant vessel, bifurcating PDA and posterolateral segment and branches. The right coronary artery proximally has a 95% stenosis. There is a 99% stenosis involving the PLV that is very large in caliber. RAMUS INTERMEDIUS: Ramus intermedius is large-sized vessel that has no evidence of high-grade stenosis. LEFT VENTRICULOGRAM: Left ventriculogram is not performed. HEMODYNAMICS: There was no gradient across the aortic valve. The left ventricle end-diastolic pressure was 8-12 mmHg. CONCLUSION: 1. Critical stenosis involving the proximal RCA and the right PLV. 2. Significant stenosis in the mid LAD and moderate significant disease in the first diagonal branch. 3. Significant disease in a small left circumflex. RECOMMENDATIONS: In view of findings and anatomy, I recommend proceeding with angioplasty and stenting of the right coronary artery. The procedure as well as risks and complications were discussed were discussed with the patient who is in full understanding and agreement. MMSAE / PAULN: [id number] /
--- NOTE | 2018-11-11 16:12 | PTCA ---
PERCUTANEOUSTRANS CORORONARY ANGIOGRAPHY Mr. Gonzalez is a 47-year-old male who presented with symptoms of unstable angina, underwent cardiac catheterization, was found to have critical stenosis involving the right coronary artery and the right large PLV. In view of that, recommendation made regarding angioplasty and stenting. The procedures, risks and complications were discussed with the patient who is in full understanding and agreement. DESCRIPTION OF PROCEDURE: A 6-Ukrainian FR4 guiding catheter in the system. After cannulating the right coronary ostium, a 0.014 balanced medium weight J-wire was advanced across the lesion, positioned distally. Then a 3.5 x 23 mm Xience Ashley stent was advanced proximally. Deployed and was dilated at 16 atmospheres. Following that, the balloon was removed and a 4.0 x 20 mm NC Trek balloon was advanced and one inflation at 12 atmospheres was done. Following that, the balloon was removed and a 2.5 x 12 mm Trek balloon was advanced into the PLV and 2 inflations at a maximum of 8 atmospheres were done. After removing the balloon at 2.75 x 23 mm, Xience Ashley stent was deployed in the PLV and was dilated at 16 atmospheres and after removing the balloon another 2.75 x 12 mm Xience Ashley stent was deployed proximal to the first one and was dilated at 16 atmospheres. After the last inflation, after appropriate wait, the balloon and the guidewire were withdrawn back in the guiding catheter. Images were obtained and repeated. Those images revealed stable successful stenting. At that point, the guiding catheter, the balloon and the guidewire were removed. The sheath was removed. Hemostasis was obtained with deployment of a TR band. There was no immediate complications. Patient is returned to his room in stable condition. Of note, the patient received Angiomax per protocol as well as oral loading dose of Effient. He had EKG changes and chest discomfort with the inflation that resolved at the end of the procedure. RESULTS: 1. Successful stenting of the proximal right coronary artery with reduction of stenosis from 95% to 0%. 2. Successful stenting of the large right PLV with reduction of stenosis from 99% to 0%. RECOMMENDATION: Patient will be continued on aspirin, Effient, beta blockers, barb inhibitors and statins. The importance of dual antiplatelet treatment were discussed with the patient and he is in full understanding and agreement. The patient will be re-evaluated at a later time regarding the need to undergo revascularization of his LAD. JOSE MARIA / PABLO: [id number] /
[2018-11-11 16:36] LABS: Glucose,Whole Blood 209 mg/dL (75-99)
[2018-11-11] MEDS: hydrALAZINE HCL 25 MG TAB PO SCH (20:07)
[2018-11-11] MEDS ORDERED: INSULIN ISOPHANE SQ SCH (21:00)
[2018-11-11] MEDS ORDERED: INSULIN REGULAR SQ SCH (21:00)
[2018-11-11 21:14] LABS: Glucose,Whole Blood 302 mg/dL (75-99)
[2018-11-11] MEDS: INSULN ASP PRT/INSULIN ASPART 100 UNIT/ML 10 ML VIAL SQ SCH (21:49)
[2018-11-11] MEDS ORDERED: LABETALOL SYRINGE 5 MG/ML IVP STA (23:23)
[2018-11-12] MEDS: METHOCARBAMOL 750 MG TAB PO PRN ×2 (02:47→23:18)
[2018-11-12] MEDS: CARVEDILOL 12.5 MG TAB PO SCH ×2 (06:11→16:48)
[2018-11-12 06:15] LABS: Glucose,Whole Blood 166 mg/dL (75-99)
[2018-11-12] MEDS: HYDROmorphone 1 MG/ML 1 ML SYRINGE IVP PRN ×5 (06:15→23:55)
[2018-11-12] MEDS: NON-FORMULARY DRUG (Canagliflozin [Invokana] 100 MG) PO SCH (06:19)
[2018-11-12 06:27] LABS: Basophils # (A) 0.2 k/uL (0-0.2); Basophils % (A) 2 %; Eosinophils % (A) 1 %; HCT 38.3 % (39.0-53.0); HGB 12.4 gm/dL (13.0-17.5); Lymphocytes # (A) 1.4 k/uL (1.0-4.8); Lymphocytes % (A) 18 %; MCH 26.6 pg (25.0-35.0); MCHC 32.3 g/dL (31.0-37.0); MCV 82.4 fL (80.0-100.0); Mean Platelet Volume 6.6; Monocytes # (A) 0.5 k/uL (0-1.0); Monocytes % (A) 7 %; Neutrophils # (A) 5.3 k/uL (1.3-7.7); Neutrophils % (A) 70 %; Platelet Count 608 k/uL (150-450); RBC 4.65 m/uL (4.30-5.90); RDW 13.2 % (11.5-15.5); WBC 7.5 k/uL (3.8-10.6)
[2018-11-12 06:38] LABS: Anion Gap 6 mmol/L; Blood Urea Nitrogen 15 mg/dL (9-20); Calcium 9.3 mg/dL (8.4-10.2); Carbon Dioxide 30 mmol/L (22-30); Chloride 102 mmol/L (98-107); Cholesterol 95 mg/dL (<200); Glucose 190 mg/dL (74-99); HDL Cholesterol 32 mg/dL (40-60); LDL Cholesterol,Calculated 34 mg/dL (0-99); Potassium 4.3 mmol/L (3.5-5.1); Sodium 138 mmol/L (137-145); Triglycerides 146 mg/dL (<150)
[2018-11-12] MEDS: INSULN ASP PRT/INSULIN ASPART 100 UNIT/ML 10 ML VIAL SQ SCH ×2 (07:29→21:26)
[2018-11-12] MEDS: glipiZIDE 10 MG TAB PO SCH ×2 (07:29→16:48)
[2018-11-12] MEDS: LOSARTAN 50 MG TAB PO SCH (08:28)
[2018-11-12] MEDS: ASPIRIN 81 MG PO SCH (08:28)
[2018-11-12] MEDS: hydrALAZINE HCL 25 MG TAB PO SCH (08:29)
[2018-11-12] MEDS: MECLIZINE 25 MG TAB PO SCH (08:29)
[2018-11-12] MEDS: PANTOPRAZOLE 40 MG TABLET PO SCH (08:29)
[2018-11-12] MEDS: ATORVASTATIN 80 MG TAB PO SCH (08:29)
[2018-11-12] MEDS: TRIAMTERENE-HCTZ 37.5-25MG 1 EACH TAB PO SCH (08:29)
[2018-11-12] MEDS: cefTRIAXone 2,000 MG in SODIUM CHLORIDE 0.9% 100 ML IVPB SCH (08:45)
[2018-11-12] MEDS ORDERED: hydrALAZINE HCL 25 MG TAB PO ONE (08:45)
--- NOTE | 2018-11-12 08:52 | PN ---
PROGRESS NOTE Mr. Gonzalez is 47-year-old male who presented with symptoms of angina pectoris underwent cardiac catheterization and stenting of his right coronary artery and right PLV. He has a lesion in the LAD and critical stenosis in the left circumflex that is small vessel. He is feeling well this morning. He denies any symptoms of chest pain. His breathing has been stable. He denies any dizziness or palpitation. He continues to have episode of elevated blood pressure. He continued to be on aspirin once a day, Lipitor 80 mg daily, Coreg 50 mg twice a day, glipizide 10 mg twice a day, hydralazine 25 mg twice a day, losartan 100 mg daily, Effient 10 mg daily, and Dyazide once a day. PHYSICAL EXAMINATION: Blood pressure 140/70 with the heart rate in the 70s. He was in the 170s earlier. LUNGS: Clear. HEART: Regular rate and rhythm, S1, S2. No S3. No rub. ABDOMEN: Soft, nontender. Right radial pulse intact. EXTREMITIES: No edema. LAB DATA: Lab data revealed BUN and creatinine of 15 and 0.7. His cholesterol is 95, LDL of 34. Hemoglobin of 12.4. IMPRESSION: 1. Coronary artery disease with triple-vessel coronary artery disease, status post stenting of the right coronary artery. 2. Hypertension. 3. Hyperlipidemia. 4. Diabetes mellitus. RECOMMENDATION: I will increase the dose of his hydralazine. Continue the rest of his medical regimen. I would expect he should be able to be discharged home today and followed as an outpatient to be re-admitted electively to undergo percutaneous revascularization of his LAD. MMODL / IJN: [id number] /
[2018-11-12] MEDS ORDERED: ASPIRIN 325 MG TAB PO SCH (09:00)
[2018-11-12] MEDS ORDERED: amLODIPine 5 MG TAB PO SCH (09:00)
[2018-11-12] MEDS ORDERED: hydrALAZINE HCL 50 MG TAB PO SCH (09:00)
[2018-11-12] MEDS: PRASUGREL 10 MG TAB PO SCH (10:28)
[2018-11-12 11:53] VITALS: BMI 27.1
[2018-11-12 11:58] LABS: Glucose,Whole Blood 188 mg/dL (75-99)
[2018-11-12 16:52] LABS: Glucose,Whole Blood 330 mg/dL (75-99)
[2018-11-12] MEDS: INSULIN ASPART 100 UNIT/ML 1 ML 10 ML VIAL SQ SCH ×2 (18:00→21:26)
[2018-11-12 21:10] LABS: Glucose,Whole Blood 339 mg/dL (75-99)
[2018-11-12] MEDS: hydrALAZINE HCL 50 MG TAB PO SCH (21:26)
--- NOTE | 2018-11-13 00:45 | P.PN ---
Subjective Progress Note Date: 11/12/18 Principal diagnosis: Chest pain This is a pleasant 47 years old male with past medical history of diabetes mellitus, coronary artery disease, hypertension, GERD, hiatal hernia and kidney stone, status post cardiac cath. He sees Dr. Quinteros the outpatient setting.he was recently diagnosed with back infection and started on antibiotics after report of system about 2 weeks ago. This time he presents because of central chest pain radiating to the left neck, felt like tightness about 7-8/10 in severity associated with dyspnea, sweating but no nausea or vomiting. He got one-time dose of aspirin by his and his pain come down to half. Patient Vitas looks stable, blood pressure is slightly elevated at 151/101. CBC unremarkable. Magnesium low at 1.5, sodium 136. Potassium 4.1. Creatinine 0.7. Chest x-ray: No acute process. In the emergency room patient was started on heparin drip. He is already on aspirin. Qc Manager evaluated the patient and planning to do cardiac cath for him today. 11/12/2018 Patient is status post cardiac cath placed and stent placement to RCA. Patient was found have triple-vessel disease. Otherwise patient is being continued on antibiotics due to recent epidural abscess diagnosed at [facility] thought to be due disseminated Infection from toe ulcer. Currently denied any complaints of chest pain or shortness breath.. Feels very weak otherwise. No fever no chills. No other acute overnight issues. Parents pain discharged in next 24 hours. Current medications reviewed. Objective - Vital Signs Vital signs: Vital Signs Temp 98.1 F 11/12/18 08:00 Pulse 69 11/12/18 16:00 Resp 16 11/12/18 16:00 BP 168/86 11/12/18 16:00 Pulse Ox 98 11/12/18 16:00 Intake & Output 11/11/18 11/12/18 11/12/18 18:59 06:59 18:59 Intake Total 175.067 0022 580 Output Total 1150 900 Balance -706.333 200 580 Weight 98.4 kg 98.4 kg Intake: IV 135 Intake, IV Titration 68.667 200 100 Amount Heparin Sod,Pork in 0.45% 68.667 NaCl 25,000 unit In 0.45 % NaCl 1 250ml.bag @ 10. 26 UNITS/KG/HR 10 mls/hr IV .Q24H ROSY Rx#: [id number] Sodium Chloride 0.9% 1, 200 000 ml @ 100 mls/hr IV . Q10H ROSY Rx#:[id number] cefTRIAXone 2,000 mg In 100 Sodium Chloride 0.9% 100 ml @ 100 mls/hr IVPB DAILY ROSY Rx#:[id number] Oral 240 900 480 Output: Urine 1150 900 Other: Voiding Method Toilet Toilet Toilet Urinal Urinal Urinal # Voids 0 0 - Exam GENERAL: The patient is alert and oriented x3, not in any acute distress. Well developed, well nourished. HEENT: Pupils are round and equally reacting to light. EOMI. No scleral icterus. No conjunctival pallor. Normocephalic, atraumatic. No pharyngeal erythema. No thyromegaly. CARDIOVASCULAR: S1 and S2 present. No murmurs, rubs, or gallops. PULMONARY: Chest is clear to auscultation, no wheezing or crackles. ABDOMEN: Soft, nontender, nondistended, normoactive bowel sounds. No palpable organomegaly. MUSCULOSKELETAL: No joint swelling or deformity. EXTREMITIES: No cyanosis, clubbing, or pedal edema. Right toe ulcer healing. NEUROLOGICAL: Gross neurological examination did not reveal any focal deficits. SKIN: No rashes. - Labs CBC & Chem 7: 11/12/18 05:51 11/12/18 05:51 Labs: Abnormal Lab Results - Last 24 Hours (Table) 11/11/18 11/12/18 11/12/18 Range/Units 21:11 05:51 05:51 Hgb 12.4 L (13.0-17.5) gm/dL Hct 38.3 L (39.0-53.0) % Plt Count 608 H (150-450) k/uL Glucose 190 H (74-99) mg/dL POC Glucose (mg/dL) 302 H (75-99) mg/dL HDL Cholesterol 32 L (40-60) mg/dL 11/12/18 11/12/18 11/12/18 Range/Units 06:12 11:33 16:41 Hgb (13.0-17.5) gm/dL Hct (39.0-53.0) % Plt Count (150-450) k/uL Glucose (74-99) mg/dL POC Glucose (mg/dL) 166 H 188 H 330 H (75-99) mg/dL HDL Cholesterol (40-60) mg/dL Microbiology - Last 24 Hours (Table) 11/11/18 05:20 Blood Culture - Preliminary Blood No Growth after 24 hours Assessment and Plan Assessment: Unstable angina status post cardiac cath placement stent placement. Accelerated essential hypertension History of coronary artery disease, status post cardiac cath Recent history of osteomyelitis/discitis of the L4-L5 spine. Currently on antibiotic. History of diabetes mellitus, type II Essential hypertension History of GERD History of rectus hernia History of kidney stone Plan: This is a pleasant 47 years old male who presents because of chest pain. Patient is status post cardiac catheterization and stent placement. Titrating blood pressure medications.. Pain management. Labs and medication were reviewed.. Continue same treatment. Continue with symptomatic treatment. Resume home medication. Monitor lytes and vitals. DVT and GI prophylaxis. Further recommendations of the clinical course of the patient DVT prophylaxis: heparin GI Prophylaxis: Pepcid Time with Patient: Greater than 30
[2018-11-13] MEDS: oxyCODONE-APAP 5-325MG 1 EACH TAB PO PRN ×2 (02:39→12:47)
[2018-11-13 04:31] LABS: Hemoglobin A1C 11.4 % (4.0-6.0)
[2018-11-13] MEDS: HYDROmorphone 1 MG/ML 1 ML SYRINGE IVP PRN ×2 (04:33→09:00)
[2018-11-13 06:12] LABS: Glucose,Whole Blood 225 mg/dL (75-99)
[2018-11-13] MEDS: NON-FORMULARY DRUG (Canagliflozin [Invokana] 100 MG) PO SCH (06:12)
[2018-11-13 06:31] LABS: Basophils # (A) 0.2 k/uL (0-0.2); Basophils % (A) 2 %; Eosinophils % (A) 0 %; HGB 12.8 gm/dL (13.0-17.5); Lymphocytes # (A) 1.6 k/uL (1.0-4.8); Lymphocytes % (A) 19 %; MCHC 32.9 g/dL (31.0-37.0); MCV 82.2 fL (80.0-100.0); Monocytes # (A) 0.5 k/uL (0-1.0); Monocytes % (A) 7 %; Neutrophils # (A) 5.7 k/uL (1.3-7.7); Neutrophils % (A) 69 %; Platelet Count 604 k/uL (150-450); RBC 4.75 m/uL (4.30-5.90); RDW 13.2 % (11.5-15.5); WBC 8.3 k/uL (3.8-10.6)
[2018-11-13 06:43] LABS: Anion Gap 8 mmol/L; Blood Urea Nitrogen 15 mg/dL (9-20); Calcium 9.2 mg/dL (8.4-10.2); Carbon Dioxide 29 mmol/L (22-30); Chloride 101 mmol/L (98-107); Glucose 222 mg/dL (74-99); Potassium 4.3 mmol/L (3.5-5.1); Sodium 138 mmol/L (137-145)
[2018-11-13] MEDS: CARVEDILOL 12.5 MG TAB PO SCH (07:13)
[2018-11-13] MEDS: INSULIN ASPART 100 UNIT/ML 1 ML 10 ML VIAL SQ SCH ×2 (07:13→12:48)
[2018-11-13] MEDS: glipiZIDE 10 MG TAB PO SCH (07:13)
[2018-11-13] MEDS: INSULN ASP PRT/INSULIN ASPART 100 UNIT/ML 10 ML VIAL SQ SCH (07:13)
[2018-11-13 07:58] VITALS: RESP 16; TEMP 97.5
[2018-11-13] MEDS ORDERED: amLODIPine 10 MG TAB PO SCH (09:00)
[2018-11-13] MEDS: ATORVASTATIN 80 MG TAB PO SCH (09:01)
[2018-11-13] MEDS: hydrALAZINE HCL 50 MG TAB PO SCH (09:01)
[2018-11-13] MEDS: ASPIRIN 81 MG PO SCH (09:01)
[2018-11-13] MEDS: cefTRIAXone 2,000 MG in SODIUM CHLORIDE 0.9% 100 ML IVPB SCH (09:01)
[2018-11-13] MEDS: PANTOPRAZOLE 40 MG TABLET PO SCH (09:01)
[2018-11-13] MEDS: MECLIZINE 25 MG TAB PO SCH (09:01)
[2018-11-13] MEDS: PRASUGREL 10 MG TAB PO SCH (09:01)
[2018-11-13] MEDS: LOSARTAN 50 MG TAB PO SCH (09:01)
[2018-11-13] MEDS: TRIAMTERENE-HCTZ 37.5-25MG 1 EACH TAB PO SCH (09:02)
--- NOTE | 2018-11-13 09:16 | PN ---
PROGRESS NOTE Mr. Gonzalez is a 47-year-old male who presented with symptoms of unstable angina underwent cardiac catheterization and stenting of his right coronary artery. He has evidence of obstructive disease involving the LAD. He is doing well this morning. His breathing has been stable. He denies any dizziness or palpitation. He denies any nausea. His blood pressure remains elevated at times. He continues to be on amlodipine 10 mg daily, aspirin once a day, Coreg 25 mg twice a day, hydralazine 25 mg twice a day, losartan 100 mg daily, Effient 10 mg daily, Protonix and Dyazide. PHYSICAL EXAMINATION: Blood pressure running in the 140s over 100 systolic. Heart rate in the 70s. LUNGS: Clear. HEART: Regular rate and rhythm. S1, S2. No S3. No rub. ABDOMEN: Soft, nontender. EXTREMITIES: No edema. LAB DATA: Lab data revealed BUN and creatinine 15 and 0.73, potassium 4.3, hemoglobin 12.8. IMPRESSION: 1. Coronary artery disease, status post stenting of the LAD with obstructive disease involving the LAD. 2. Hypertension. 3. Osteomyelitis. 4. Hyperlipidemia. RECOMMENDATION: I adjusted his antihypertensive regimen. He should be able to be discharged home today to be re-admitted as an outpatient to undergo percutaneous revascularization of his LAD. MMODL / IJN: [id number] /
[2018-11-13 12:03] LABS: Glucose,Whole Blood 260 mg/dL (75-99)
[2018-11-13 13:16] VITALS: BP 140/102; PULSE 90
--- NOTE | 2018-11-15 09:59 | P.DS ---
Providers Date of admission: 11/11/18 00:33 Expected date of discharge: 11/13/18 Attending physician: Harris Coyne Consults: 11/11/18 00:33 Consult Physician Urgent Consulting Provider: José Laurent Consult Reason/Comments: Acute coronary syndrome Do you want consulting provider notified?: Already Contacted 11/11/18 14:34 Consult Physician Routine Consulting Provider: [facility] Consult Reason/Comments: Post Interventional patient Do you want consulting provider notified?: Already Contacted Primary care physician: Fran Agee Hospital Course: Discharge summary Unstable angina status post cardiac cath placement stent placement. Accelerated essential hypertension. Controlled now History of coronary artery disease, status post cardiac cath Recent history of osteomyelitis/discitis of the L4-L5 spine. Currently on antibiotic. History of diabetes mellitus, type II Essential hypertension History of GERD History of rectus hernia History of kidney stone Hospital course This is a pleasant 47 years old male with past medical history of diabetes mellitus, coronary artery disease, hypertension, GERD, hiatal hernia and kidney stone, status post cardiac cath. He sees Dr. Quinteros the outpatient setting.he was recently diagnosed with back infection and started on antibiotics after report of system about 2 weeks ago. This time he presents because of central chest pain radiating to the left neck, felt like tightness about 7-8/10 in severity associated with dyspnea, sweating but no nausea or vomiting. He got one-time dose of aspirin by his and his pain come down to half. Patient Vitas looks stable, blood pressure is slightly elevated at 151/101. CBC unremarkable. Magnesium low at 1.5, sodium 136. Potassium 4.1. Creatinine 0.7. Chest x-ray: No acute process. In the emergency room patient was started on heparin drip. He is already on aspirin. Jig Bore Tool Maker evaluated the patient and planning to do cardiac cath for him today. 11/12/2018 Patient is status post cardiac cath placed and stent placement to RCA. Patient was found have triple-vessel disease. Otherwise patient is being continued on antibiotics due to recent epidural abscess diagnosed at [facility] thought to be due disseminated Infection from toe ulcer. Currently denied any complaints of chest pain or shortness breath.. Feels very weak otherwise. No fever no chills. No other acute overnight issues. Parents pain discharged in next 24 hours. 11/13/2018 Patient denied any complaints of chest pain or shortness of breath today. Right foot pain is better today. Hemoglobin is stable. Blood pressure is controlled with new regimen. Patient will be continued on aspirin and brillinta and beta blockers and statins. Continue with antibiotics from the recent course for epidural abscess and foot infection. No fever no chills. Patient is otherwise stable to be discharged home. PHYSICAL EXAMINATION: Patient is lying in the bed comfortably, no acute distress, awake alert and oriented.. HEENT: Normocephalic. Neck is supple. Pupils reactive. Nostrils clear. Oral cavity is moist. Ears reveal no drainage. Neck reveals no JVD, carotid bruits, or thyromegaly. CHEST EXAMINATION: Trachea is central. Symmetrical expansion. Lung rdoriguez clear to auscultation and percussion. CARDIAC: Normal S1, S2 with no gallops. No murmurs ABDOMEN: Soft. Bowel sounds normal. No organomegaly. No abdominal bruits. Extremities: reveal no edema. No clubbing or cyanosis. Toe infectious clearing up. No discharge. Neurologically awake, alert, oriented x3 with well-coordinated movements. No focal deficits noted Skin: No rash or skin lesions. Psychiatric: Coperative. Nonsuicidal Musculoskeletal: No joint swelling or deformity. Normal range of motion. Discharge vitals reviewed. Patient Condition at Discharge: Fair Plan - Discharge Summary Discharge Rx Participant: No New Discharge Prescriptions: New amLODIPine [Norvasc] 5 mg PO DAILY #30 tab Carvedilol [Coreg*] 25 mg PO BID-W/MEALS #60 tab hydrALAZINE HCL [Apresoline] 50 mg PO BID #60 tab Nitroglycerin Sl Tabs [Nitrostat] 0.4 mg SUBLINGUAL Q5M PRN #25 tab PRN Reason: Chest Pain Prasugrel [Effient] 10 mg PO DAILY #30 tab Triamterene-Hctz 37.5-25Mg [Maxzide 37.5-25] 1 each PO DAILY #30 tab Continue Acetaminophen Tab [Tylenol] 650 mg PO Q6H PRN PRN Reason: Pain Atorvastatin [Lipitor] 80 mg PO HS Aspirin EC [Ecotrin Low Dose] 81 mg PO DAILY Doxycycline [Vibramycin] 100 mg PO BID Losartan Potassium 100 mg PO DAILY cefTRIAXone [Rocephin] 2,000 mg IVPB Q24HR oxyCODONE HCL/ACETAMINOPHEN [Percocet 7.5-325 mg] 1 tab PO QID PRN PRN Reason: Pain Insulin NPH/Reg Insulin 70/30 [humuLIN 70/30 VIAL] 20 unit SQ BID metFORMIN HCL [Glucophage] 1,000 mg PO AC-BID #0 Discontinued Carvedilol 12.5 mg PO BID Minoxidil [Loniten] 2.5 mg PO DAILY Triamterene/Hydrochlorothiazid [Triamterene-Hctz 37.5-25 mg Tb] 1 tab PO DAILY Discharge Medication List Acetaminophen Tab [Tylenol] 650 mg PO Q6H PRN 07/04/18 [History] Aspirin EC [Ecotrin Low Dose] 81 mg PO DAILY 11/11/18 [History] Atorvastatin [Lipitor] 80 mg PO HS 11/11/18 [History] Doxycycline [Vibramycin] 100 mg PO BID 11/11/18 [History] Insulin NPH/Reg Insulin 70/30 [humuLIN 70/30 VIAL] 20 unit SQ BID 11/11/18 [ History] Losartan Potassium 100 mg PO DAILY 11/11/18 [History] cefTRIAXone [Rocephin] 2,000 mg IVPB Q24HR 11/11/18 [History] oxyCODONE HCL/ACETAMINOPHEN [Percocet 7.5-325 mg] 1 tab PO QID PRN 11/11/18 [ History] Carvedilol [Coreg*] 25 mg PO BID-W/MEALS #60 tab 11/12/18 [Rx] Nitroglycerin Sl Tabs [Nitrostat] 0.4 mg SUBLINGUAL Q5M PRN #25 tab 11/12/18 [Rx ] Prasugrel [Effient] 10 mg PO DAILY #30 tab 11/12/18 [Rx] amLODIPine [Norvasc] 5 mg PO DAILY #30 tab 11/12/18 [Rx] hydrALAZINE HCL [Apresoline] 50 mg PO BID #60 tab 11/12/18 [Rx] metFORMIN HCL [Glucophage] 1,000 mg PO AC-BID #0 11/12/18 [Rx] Triamterene-Hctz 37.5-25Mg [Maxzide 37.5-25] 1 each PO DAILY #30 tab 11/13/18 [ Rx] Follow up Appointment(s)/Referral(s): Talisha Ha MD [STAFF PHYSICIAN] - 11/19/18 3:45 pm (Sunday) Anuel Peters MD [Primary Care Provider] - 11/18/18 11:00 am (Sunday -appointment on the was cancelled) [facility], [NON-STAFF] - Patient Instructions/Handouts: *Surgery [facility] - After Heart Catheterization - Combo Welder Instructions, Heart Healthy Diet (DC), Coronary Intravascular Stent Placement (DC) Activity/Diet/Wound Care/Special Instructions: pts Effient copay is $11.03 Cardio clear Discharge Disposition: HOME WITH HOME HEALTH SERVICES
== END 2018-11-13 14:56 | disposition home health service (06) | DRG 247 ==
LOC: EC 22:34 → 3SCARD 11-11 00:33 → OBSVTOIN 11-11 00:33
PROVIDERS: ADMIT Hospitalist; ATTEND Hospitalist
PROC: B2111ZZ Fluoroscopy of Multiple Coronary Arteries using Low Osmolar Contrast (ICD-10-PCS; principal; 2018-11-11 13:00)
PROC: 027135Z Dilation of Coronary Artery, Two Arteries with Two Drug-eluting Intraluminal Devices, Percutaneous Approach (ICD-10-PCS; 2018-11-11 13:00)
DX: I25.110 Atherosclerotic heart disease of native coronary artery with unstable angina pectoris (principal); M46.26 Osteomyelitis of vertebra, lumbar region; E11.69 Type 2 diabetes mellitus with other specified complication; M46.46 Discitis, unspecified, lumbar region; B95.1 Streptococcus, group B, as the cause of diseases classified elsewhere; E78.5 Hyperlipidemia, unspecified; I10 Essential (primary) hypertension; K21.9 Gastro-esophageal reflux disease without esophagitis; K44.9 Diaphragmatic hernia without obstruction or gangrene; G89.29 Other chronic pain; F17.210 Nicotine dependence, cigarettes, uncomplicated; Z71.6 Tobacco abuse counseling; Z79.82 Long term (current) use of aspirin; Z79.4 Long term (current) use of insulin; Z79.899 Other long term (current) drug therapy; Z86.14 Personal history of Methicillin resistant Staphylococcus aureus infection; Z87.442 Personal history of urinary calculi; Z90.49 Acquired absence of other specified parts of digestive tract; Z87.39 Personal history of other diseases of the musculoskeletal system and connective tissue; Z88.1 Allergy status to other antibiotic agents; Z83.3 Family history of diabetes mellitus; Z82.49 Family history of ischemic heart disease and other diseases of the circulatory system; Z80.1 Family history of malignant neoplasm of trachea, bronchus and lung
CPT/HCPCS: 36415; 71045; 80048; 80053; 80061; 82550; 82553; 83036; 83735; 84484; 85025; 85610; 85730; 87040; 93005; 93306; 93458; 96365; 96375; 96376; 99285; C1874

== ENCOUNTER 2018-12-04 06:47 | Day surgery (SDC) | payer BC ==
[~2018-12-04 06:47] MED LIST: ALPRAZolam 0.25 MG TAB PO PRN; ASPIRIN 325 MG TAB PO STA; ATORVASTATIN 80 MG TAB PO STA; NITROGLYCERIN SL TABS 0.4 MG TAB SUBLINGUAL PRN; SODIUM CHLORIDE 0.9% 1,000 ML in EMPTY BAG 1 BAG IV ONE
[2018-12-04] MEDS ORDERED: LIDOCAINE 1% INJ 10MG/ML (20 ML MDV) ONE (07:19)
[2018-12-04] MEDS ORDERED: VERAPAMIL 2.5 MG/ML 2 ML AMP ONE (07:23)
[2018-12-04] MEDS: INSULIN ASPART (NovoLOG) 100 UNIT/ML VIAL SQ SCH ×4 (07:23→23:08)
[2018-12-04 07:24] LABS: Glucose,Whole Blood 250 mg/dL (75-99)
[2018-12-04] MEDS ORDERED: fentaNYL (PF) 50 MCG/ML 2 ML AMP ONE (07:28)
[2018-12-04] MEDS ORDERED: fentaNYL (PF) 50 MCG/ML 2 ML AMP IV ONE (07:34)
[2018-12-04] MEDS ORDERED: LIDOCAINE 1% INJ 10MG/ML (20 ML MDV) SQ ONE (07:36)
[2018-12-04] MEDS ORDERED: MIDAZOLAM 2 MG/2 ML VIAL IV ONE (07:37)
[2018-12-04] MEDS ORDERED: VERAPAMIL SYRINGE (5 MG/10 ML) INTRAARTER ONE (07:38)
[2018-12-04] MEDS ORDERED: BIVALIRUDIN 250 MG in SODIUM CHLORIDE 0.9% 50 ML IV ONE (07:42)
[2018-12-04] MEDS ORDERED: BIVALIRUDIN BOLUS 250 MG/50 ML IV ONE (07:42)
[2018-12-04] MEDS ORDERED: NITROGLYCERIN 1000MCG/10ML SYRINGE INTRACORON ONE (07:44)
[2018-12-04] MEDS ORDERED: IOPAMIDOL-370 150ML BTL INJ ONE (07:56)
[2018-12-04] MEDS ORDERED: SODIUM CHLORIDE 0.9% 1,000 ML IV SCH (08:15)
[2018-12-04] MEDS ORDERED: NITROGLYCERIN SL TABS 0.4 MG TAB SUBLINGUAL PRN ×2 (08:15→08:16)
[2018-12-04] MEDS ORDERED: ATROPINE SULFATE 0.1 MG/ML 10ML SYRINGE IV PRN (08:15)
[2018-12-04] MEDS ORDERED: ZOLPIDEM 5 MG TAB PO PRN (08:15)
[2018-12-04] MEDS ORDERED: MAG HYDROX/AL HYDROX/SIMETH 30 ML CUP PO PRN (08:15)
[2018-12-04] MEDS ORDERED: RX INFO: IV CONTRAST WAS GIVEN 1 EACH MISC MISCELLANE PRN (08:15)
[2018-12-04] MEDS ORDERED: ACETAMINOPHEN TAB 325 MG TAB PO PRN (08:16)
[2018-12-04] MEDS ORDERED: LOSARTAN 50 MG TAB PO STA ×2 (08:21→15:58)
[2018-12-04] MEDS ORDERED: NON-FORMULARY DRUG (Ceftriaxone 2,000 MG) IVPB SCH (09:00)
--- NOTE | 2018-12-04 09:15 | PTCA ---
PERCUTANEOUSTRANS CORORONARY ANGIOGRAPHY Mr. Gonzalez is a 48-year-old male with known history of hypertension, hyperlipidemia, history of coronary artery disease who has underwent stenting of the right coronary artery 2 weeks ago and was found to have evidence of significant obstructive disease involving the LAD. He was admitted electively to undergo stenting of that vessel. The procedures, risks and complication were discussed with the patient who is in full understanding and agreement. PROCEDURE: Patient was brought to optical laboratory mechanic in a fasting semi-sedated state after receiving fentanyl and Benadryl and achieving moderate conscious sedated state. Using Xylocaine anesthesia and Seldinger technique, a 6-English sheath was introduced in the right radial artery. Left coronary angiography was performed using 6-English 3.5 FL guiding catheter. After cannulating the left main, a 0.014 balanced medium weight J-wire was advanced across the lesion, positioned distally, then a 3.0 x 15 mm Xience Ashley stent was deployed, postdilated at 16 atmospheres. After the last inflation, after appropriate wait, the balloon and the guidewire were withdrawn back in the guiding catheter. Images were obtained and repeated. Those images reveal stable successful stenting. Following that, the guiding catheter, the balloon and the guidewire were removed and a 5-English 4 bend right Miri diagnostic catheter was introduced and images of the right coronary artery was performed. Following that, catheter and sheath were removed. Hemostasis was obtained with deployment of a TR band. There was no immediate complication. Patient is returned to his room in stable condition. Of note, the patient received Angiomax per protocol as well as continued on the Effient. RESULTS: 1. Successful stenting of the mid LAD with reduction of stenosis from 70% to 0%. 2. Patent stent to the right coronary artery and PLV. 3. Obstructive disease involving the first obtuse marginal branch beyond that the vessel is small in caliber. RECOMMENDATION: Patient will be continued on aspirin, Effient, statin. The importance of dual antiplatelet treatment was discussed with the patient his family, who are in full understanding and agreement. Duration of procedure is 23 minutes. MMODL / PAULN: [id number] /
--- NOTE | 2018-12-04 09:21 | LTR ---
DATE OF SERVICE: 12/04/2018 RE: Jeet Gonzalez Dear Dr. Peters; I had the pleasure to perform coronary angioplasty and stenting on Mr. Gonzalez at [facility] on December 04, 2018 and a full copy of the procedure note will be forwarded to you. In brief, he underwent successful stenting of his mid left anterior descending artery receiving a drug-eluting stent. I am hopeful that this procedure was stabilize his status. Thank you again for allowing me to participate in this patient's care. Please feel free to call for any questions. Sincerely yours, MD SHERIF ReynaL / PAULN: [id number] /
[2018-12-04] MEDS: oxyCODONE-APAP 10-325MG 1 EACH TAB PO PRN ×2 (11:17→21:31)
[2018-12-04] MEDS: ALPRAZolam 0.5 MG TAB PO PRN ×2 (16:10→21:32)
[2018-12-04] MEDS: amLODIPine 5 MG TAB PO SCH (16:37)
[2018-12-04] MEDS ORDERED: HYDROmorphone 0.5 MG/0.5 ML SYRINGE IVP STA (16:47)
[2018-12-04 16:48] LABS: Glucose,Whole Blood 361 mg/dL (75-99)
[2018-12-04] MEDS: INSULN ASP PRT/INSULIN ASPART 100 UNIT/ML 10 ML VIAL SQ SCH (18:06)
[2018-12-04] MEDS: CARVEDILOL 12.5 MG TAB PO SCH (18:06)
[2018-12-04 20:42] LABS: Glucose,Whole Blood 335 mg/dL (75-99)
[2018-12-04] MEDS ORDERED: ATORVASTATIN 80 MG TAB PO SCH (21:00)
[2018-12-04] MEDS: hydrALAZINE HCL 50 MG TAB PO SCH (21:30)
[2018-12-04] MEDS: DOXYCYCLINE 100 MG CAP PO SCH (23:08)
[2018-12-05 06:35] LABS: Glucose,Whole Blood 260 mg/dL (75-99)
[2018-12-05] MEDS: INSULIN ASPART (NovoLOG) 100 UNIT/ML VIAL SQ SCH ×2 (06:44→12:24)
[2018-12-05] MEDS: CARVEDILOL 12.5 MG TAB PO SCH (06:44)
[2018-12-05] MEDS: oxyCODONE-APAP 10-325MG 1 EACH TAB PO PRN (06:47)
[2018-12-05 08:12] LABS: Anion Gap 7 mmol/L; Blood Urea Nitrogen 17 mg/dL (9-20); Calcium 9.1 mg/dL (8.4-10.2); Carbon Dioxide 29 mmol/L (22-30); Chloride 104 mmol/L (98-107); Glucose 225 mg/dL (74-99); Potassium 3.9 mmol/L (3.5-5.1); Sodium 140 mmol/L (137-145)
[2018-12-05] MEDS ORDERED: ASPIRIN 81 MG PO SCH (09:00)
[2018-12-05] MEDS ORDERED: PRASUGREL 10 MG TAB PO SCH (09:00)
[2018-12-05] MEDS ORDERED: TRIAMTERENE-HCTZ 37.5-25MG 1 EACH TAB PO SCH (09:00)
[2018-12-05] MEDS ORDERED: LOSARTAN 50 MG TAB PO SCH (09:00)
[2018-12-05] MEDS: hydrALAZINE HCL 50 MG TAB PO SCH (09:16)
[2018-12-05] MEDS: INSULN ASP PRT/INSULIN ASPART 100 UNIT/ML 10 ML VIAL SQ SCH (09:18)
--- NOTE | 2018-12-05 09:25 | PN ---
PROGRESS NOTE Mr. Gonzalez is a 48-year-old male with a known history of coronary artery disease, hypertension, hyperlipidemia, who has underwent stenting of his right coronary artery and was found to have significant obstructive disease in the LAD, underwent stenting of the LAD yesterday. He is doing well this morning. He is denying any chest pain. His breathing has been stable. He denies any dizziness or palpitation. He denies any nausea. He is ambulating without difficulty. He continues to be on aspirin once a day, Effient 10 mg daily, Norvasc 5 mg daily, Lipitor 80 mg daily, Coreg 25 mg twice a day, losartan 100 mg daily, hydralazine 50 mg twice a day. PHYSICAL EXAMINATION: Blood pressure 160/80 with the heart rate in 50s. LUNGS: Clear. HEART: Regular rate and rhythm. S1, S2. No S3. No rub. ABDOMEN: Soft, nontender. EXTREMITIES: No edema. Right radial pulse intact. LAB DATA: Lab data revealed BUN and creatinine 17 and 0.71. Potassium is 3.9. EKG revealed no acute changes. IMPRESSION: 1. Status post stenting of the left anterior descending artery. 2. Hypertension. 3. Hyperlipidemia. 4. Diabetes mellitus. 5. Prior history of osteomyelitis. RECOMMENDATION: Patient should be able to be discharged home today. I will increase the dose of his amlodipine. He will be followed in the office next week and depending on his progress, further recommendation will be made. MMVIRAJL / IJN: [id number] /
[2018-12-05] MEDS: DOXYCYCLINE 100 MG CAP PO SCH (09:34)
[2018-12-05] MEDS ORDERED: amLODIPine 10 MG TAB PO SCH (09:38)
[2018-12-05 11:27] VITALS: PULSE 62; RESP 16
[2018-12-05 11:50] LABS: Glucose,Whole Blood 188 mg/dL (75-99)
[2018-12-05] MEDS: amLODIPine 5 MG TAB PO SCH (12:46)
[2018-12-05 14:30] VITALS: BMI 28.2
[2018-12-05 15:35] VITALS: TEMP 98.1
[2018-12-05 15:46] VITALS: BP 177/90
[2018-12-05 19:14] LABS: Hemoglobin A1C 11.8 % (4.0-6.0)
[2018-12-06] MEDS ORDERED: amLODIPine 10 MG TAB PO SCH (09:00)
== END 2018-12-05 15:20 | disposition home or self-care (01) ==
LOC: CATHCVL 06:47 → 3SCARD 15:37 → CATHCVL 12-05 15:20
PROVIDERS: ATTEND Internal Medicine Interventional Cardiology
DX: I25.10 Atherosclerotic heart disease of native coronary artery without angina pectoris (principal); I10 Essential (primary) hypertension; E78.2 Mixed hyperlipidemia; E11.9 Type 2 diabetes mellitus without complications; M86.9 Osteomyelitis, unspecified; Z82.49 Family history of ischemic heart disease and other diseases of the circulatory system; Z95.5 Presence of coronary angioplasty implant and graft; Z79.82 Long term (current) use of aspirin; Z79.899 Other long term (current) drug therapy; Z79.4 Long term (current) use of insulin; Z72.0 Tobacco use; Z79.02 Long term (current) use of antithrombotics/antiplatelets
CPT/HCPCS: 85347; 80048; 83036; C9600; C1769 ×2; C1887; C1894; C1874; J2250; J0696; J2001; J3010; J0583; J1170; Q9967

== ENCOUNTER → 2018-12-16 | Outpatient (CLI) | payer BC ==
--- NOTE | 2018-12-19 17:07 | MR ---
EXAMINATION TYPE: MR lumbar spine wo/w con DATE OF EXAM: 12/16/2018 COMPARISON: Prior MRI 10/28/2018 HISTORY: Paraspinal abscess, back pain TECHNIQUE: Multiplanar, multisequence images of the lumbar spine were acquired utilizing 10 mL intravenous Gadav ist gadolinium contrast. Exam submitted for interpretation on 12/19/2018 There is been interval progression in the epidural enhancement posterior to the L5-S1 level with some interval development of some mass effect at the level of the thecal sac at this level, there is cent ral low signal on T1-weighted images post contrast consistent with small epidural abscess. There is b een also interval increase in the enhancement in the paraspinal musculature posterior to L4-5 levels, serpiginous low signal in T1 and T2-weighted sequences about areas of T2 intensity are compatible wi th underlying abscess or phlegmon at this level. T2 intensity is noted within the pedicles of the L4 and L5 vertebral bodies to the right of midline w ith low signal on T1-weighted images compatible with osteomyelitis, fluid signal present at the facet . No other significant interval change. IMPRESSION: There has been interval progression in the epidural abscess, inflammatory process within the paraspin al musculature, development of osteomyelitis as described. A Red level critical message alert has been initiated for Ta Chappell MD~[id number] via the [employer] Critical Results System on 12/19/2018 5:05 PM. This message alert has been sent to Ta Chappell MD~[id number] via the preferences provided by the clinician for the receipt of Radiology Critical Findin gs. Message ID [id number].
== END | disposition home or self-care (01) ==
LOC: RADMRIMAIN 11:41
PROVIDERS: ATTEND Internal Medicine Infectious Disease
DX: G06.2 Extradural and subdural abscess, unspecified (principal); M46.25 Osteomyelitis of vertebra, thoracolumbar region
CPT/HCPCS: 72158; A9585

== ENCOUNTER → 2018-12-25 | Outpatient (CLI) | payer BC ==
[2018-12-25 16:19] LABS: Basophils # (A) 0.1 k/uL (0-0.2); Basophils % (A) 1 %; Eosinophils # (A) 0.1 k/uL (0-0.7); Eosinophils % (A) 1 %; HCT 47.8 % (39.0-53.0); HGB 14.8 gm/dL (13.0-17.5); Lymphocytes # (A) 1.5 k/uL (1.0-4.8); Lymphocytes % (A) 15 %; MCH 27.3 pg (25.0-35.0); MCV 88.1 fL (80.0-100.0); Mean Platelet Volume 6.5; Monocytes # (A) 0.5 k/uL (0-1.0); Monocytes % (A) 5 %; Neutrophils # (A) 7.3 k/uL (1.3-7.7); Neutrophils % (A) 76 %; Platelet Count 317 k/uL (150-450); RBC 5.43 m/uL (4.30-5.90); RDW 15.6 % (11.5-15.5); WBC 9.6 k/uL (3.8-10.6)
[2018-12-25 20:05] LABS: Erythrocyte Sedimentation Rate 8 mm/hr (0-15)
[2018-12-26 01:34] LABS: Anion Gap 12.2 mmol/L (4.00-12.00); C Reactive Protein 0.7 mg/dL (0.0-0.8); Carbon Dioxide 25.8 mmol/L (21.6-31.8); Potassium 3.9 mmol/L (3.5-5.5)
== END | disposition home or self-care (01) ==
LOC: LABWHC1 15:43
PROVIDERS: ATTEND Internal Medicine Infectious Disease
DX: G06.1 Intraspinal abscess and granuloma (principal); M46.20 Osteomyelitis of vertebra, site unspecified; A49.1 Streptococcal infection, unspecified site
CPT/HCPCS: 36415; 80048; 85025; 85652; 86140

== ENCOUNTER 2019-01-05 19:40 | Inpatient (IN) | payer BC ==
[2019-01-05] MEDS ORDERED: SODIUM CHLORIDE 0.9% 1,000 ML IV STA (19:54)
[2019-01-05] MEDS ORDERED: KETOROLAC 30 MG/ML 1 ML VIAL IVP STA (20:27)
[2019-01-05] MEDS ORDERED: ACETAMINOPHEN TAB 500 MG TAB PO STA (20:27)
--- NOTE | 2019-01-05 20:27 | ED ---
General Adult HPI - General Chief complaint: Dizziness Stated complaint: Dizziness/chills Time Seen by Provider: 01/05/19 19:51 Source: patient, family, RN notes reviewed, old records reviewed Mode of arrival: ambulatory Limitations: no limitations - History of Present Illness Initial comments: 48-year-old male presents for evaluation of lightheadedness, generalized weakness, and fever and chills. Patient was previously on IV antibiotics for lumbar epidural abscess. He was seen both at this institution and at [facility]. There was an attempt to drain this abscess however according to the patient who unsuccessful. Patient has been following with infectious disease. He is IV antibiotics were discontinued approximately 3 weeks ago and he then completed a course of Keflex. He's had subjective fever and chills as well as regulars. He's had some mild nausea without significant vomiting. Denies chest pain or dyspnea. - Related Data Home Medications Medication Instructions Recorded Confirmed Atorvastatin [Lipitor] 80 mg PO HS 11/11/18 01/05/19 Losartan Potassium 100 mg PO DAILY 11/11/18 01/05/19 Cephalexin [Keflex] 500 mg PO QID 01/05/19 01/05/19 Insulin NPH/Reg Insulin 70/30 30 units SQ BID 01/05/19 01/05/19 [humuLIN 70/30 VIAL] amLODIPine [Norvasc] 5 mg PO DAILY 01/05/19 01/05/19 glipiZIDE [Glucotrol] 10 mg PO BID 01/05/19 01/05/19 Previous Rx's Medication Instructions Recorded Carvedilol [Coreg*] 25 mg PO BID-W/MEALS #60 tab 11/12/18 Nitroglycerin Sl Tabs [Nitrostat] 0.4 mg SUBLINGUAL Q5M PRN #25 tab 11/12/18 Prasugrel [Effient] 10 mg PO DAILY #30 tab 11/12/18 hydrALAZINE HCL [Apresoline] 50 mg PO BID #60 tab 11/12/18 metFORMIN HCL [Glucophage] 1,000 mg PO AC-BID #0 11/12/18 Triamterene-Hctz 37.5-25Mg 1 each PO DAILY #30 tab 11/13/18 [Maxzide 37.5-25] Allergies Allergy/AdvReac Type Severity Reaction Status Date / Time vancomycin Allergy Unknown Verified 01/05/19 20:00 Review of Systems ROS Statement: Those systems with pertinent positive or pertinent negative responses have been documented in the HPI. ROS Other: All systems not noted in ROS Statement are negative. Past Medical History Past Medical History: Chest Pain / Angina, Diabetes Mellitus, GERD/Reflux, Hypertension, Syncope Additional Past Medical History / Comment(s): NIDDM type II, hiatal hernia, nephrolithiasis, chronic low back pain, bilateral leg numbness, R great toe aibetic foot ulcer, past left olecranon bursitis, osteomyelitis in L4-L5 w/current treatment via PICC line History of Any Multi-Drug Resistant Organisms: MRSA Date of last positivie culture/infection: 12/21/16 MDRO Source:: Left axilla Past Surgical History: Appendectomy, Cholecystectomy, Heart Catheterization, Orthopedic Surgery Additional Past Surgical History / Comment(s): RENAL ANGIOGRAM 2005 for HTN, cardiac cath 2005, LT WRIST TENDON REPAIR 2013, RT ROTATOR CUFF REPAIR, bilate ral knee arthroscopies, I&D L axillae Past Anesthesia/Blood Transfusion Reactions: No Reported Reaction Past Psychological History: No Psychological Hx Reported Smoking Status: Former smoker Past Alcohol Use History: None Reported Past Drug Use History: None Reported - Past Family History Father Family Medical History: Coronary Artery Disease (CAD), Diabetes Mellitus, Hypertension Additional Family Medical History / Comment(s): pt. reports his father had a four vessel CABG Mother Family Medical History: Cancer, Hypertension Additional Family Medical History / Comment(s): LUNG CANCER(NON SMOKER) General Exam Limitations: no limitations General appearance: alert, in no apparent distress Head exam: Present: atraumatic, normocephalic Eye exam: Present: normal appearance, PERRL ENT exam: Present: mucous membranes dry Neck exam: Absent: normal inspection, tenderness Respiratory exam: Present: normal lung sounds bilaterally. Absent: respiratory distress, wheezes Cardiovascular Exam: Present: regular rate, normal rhythm GI/Abdominal exam: Present: soft. Absent: distended, tenderness, guarding Extremities exam: Present: normal inspection, normal capillary refill. Absent: pedal edema Back exam: Present: normal inspection, full ROM. Absent: tenderness, muscle spasm, paraspinal tenderness, vertebral tenderness Neurological exam: Present: alert, oriented X3, CN II-XII intact. Absent: motor sensory deficit Psychiatric exam: Present: normal affect, normal mood Skin exam: Present: warm, dry, intact. Absent: cyanosis, diaphoretic Course Vital Signs 01/05/19 01/05/19 19:42 21:09 Temperature 99.1 F Pulse Rate 86 77 Respiratory 18 18 Rate Blood Pressure 139/94 136/92 O2 Sat by Pulse 98 93 L Oximetry EKG Findings - EKG Comments: EKG Findings:: EKG: Normal sinus rhythm, incomplete right bundle branch block, no ST segment elevation, rate of 84, NE interval 158, QRS duration 110, QTC 467, similar compared to previous EKG. Medical Decision Making - Medical Decision Making 48-year-old male presenting with lightheadedness, subjective fever and chills. Recent lumbar epidural abscess treated with IV antibiotics. Workup in the emergency department reveals normal CBC, no leukocytosis, normal lactic acid 1.3, magnesium and potassium are both swollen are replaced. Imaging from 12/16/2018 shows lumbar spine with osteomyelitis, and small epidural abscess at L4-L5. Blood cultures obtained. Case discussed with patient's infectious disease physician Dr. Chappell, recommends adding CRP and sed rate, these are pending. Recommends initiating antibiotics, Cefazolin q8hr. recommends repeating MRI. This will be ordered, likely obtained tomorrow morning. Patient will be kept for IV hydration, awaiting cultures and MRI. - Lab Data Result diagrams: 01/05/19 20:02 01/05/19 20:02 Lab Results 01/05/19 01/05/19 01/05/19 Range/Units 20:02 20:02 20:02 WBC 8.1 (3.8-10.6) k/uL RBC 4.98 (4.30-5.90) m/uL Hgb 13.7 (13.0-17.5) gm/dL Hct 40.9 (39.0-53.0) % MCV 82.1 D (80.0-100.0) fL MCH 27.5 (25.0-35.0) pg MCHC 33.5 (31.0-37.0) g/dL RDW 14.2 (11.5-15.5) % Plt Count 302 (150-450) k/uL Neutrophils % 68 % Lymphocytes % 18 % Monocytes % 7 % Eosinophils % 4 % Basophils % 1 % Neutrophils # 5.5 (1.3-7.7) k/uL Lymphocytes # 1.5 (1.0-4.8) k/uL Monocytes # 0.5 (0-1.0) k/uL Eosinophils # 0.3 (0-0.7) k/uL Basophils # 0.1 (0-0.2) k/uL PT 9.3 (9.0-12.0) sec INR 0.8 (<1.2) APTT 24.8 (22.0-30.0) sec Sodium 139 (137-145) mmol/L Potassium 3.4 L (3.5-5.1) mmol/L Chloride 100 (98-107) mmol/L Carbon Dioxide 27 (22-30) mmol/L Anion Gap 12 mmol/L BUN 17 (9-20) mg/dL Creatinine 1.47 H (0.66-1.25) mg/dL Est GFR (CKD-EPI)AfAm 64 (>60 ml/min/1.73 sqM) Est GFR (CKD-EPI)NonAf 55 (>60 ml/min/1.73 sqM) Glucose 169 H (74-99) mg/dL Plasma Lactic Acid Cb (0.7-2.0) mmol/L Calcium 9.3 (8.4-10.2) mg/dL Magnesium 1.5 L (1.6-2.3) mg/dL Total Bilirubin 0.6 (0.2-1.3) mg/dL AST 20 (17-59) U/L ALT 36 (21-72) U/L Alkaline Phosphatase 76 (38-126) U/L Troponin I (0.000-0.034) ng/mL Total Protein 6.7 (6.3-8.2) g/dL Albumin 3.7 (3.5-5.0) g/dL Urine Color Urine Appearance (Clear) Urine pH (5.0-8.0) Ur Specific [place] (1.001-1.035) Urine Protein (Negative) Urine Glucose (UA) (Negative) Urine Ketones (Negative) Urine Blood (Negative) Urine Nitrite (Negative) Urine Bilirubin (Negative) Urine Urobilinogen (<2.0) mg/dL Ur Leukocyte Esterase (Negative) 01/05/19 01/05/19 01/05/19 Range/Units 20:02 20:02 21:04 WBC (3.8-10.6) k/uL RBC (4.30-5.90) m/uL Hgb (13.0-17.5) gm/dL Hct (39.0-53.0) % MCV (80.0-100.0) fL MCH (25.0-35.0) pg MCHC (31.0-37.0) g/dL RDW (11.5-15.5) % Plt Count (150-450) k/uL Neutrophils % % Lymphocytes % % Monocytes % % Eosinophils % % Basophils % % Neutrophils # (1.3-7.7) k/uL Lymphocytes # (1.0-4.8) k/uL Monocytes # (0-1.0) k/uL Eosinophils # (0-0.7) k/uL Basophils # (0-0.2) k/uL PT (9.0-12.0) sec INR (<1.2) APTT (22.0-30.0) sec Sodium (137-145) mmol/L Potassium (3.5-5.1) mmol/L Chloride (98-107) mmol/L Carbon Dioxide (22-30) mmol/L Anion Gap mmol/L BUN (9-20) mg/dL Creatinine (0.66-1.25) mg/dL Est GFR (CKD-EPI)AfAm (>60 ml/min/1.73 sqM) Est GFR (CKD-EPI)NonAf (>60 ml/min/1.73 sqM) Glucose (74-99) mg/dL Plasma Lactic Acid Cb 1.3 (0.7-2.0) mmol/L Calcium (8.4-10.2) mg/dL Magnesium (1.6-2.3) mg/dL Total Bilirubin (0.2-1.3) mg/dL AST (17-59) U/L ALT (21-72) U/L Alkaline Phosphatase (38-126) U/L Troponin I <0.012 (0.000-0.034) ng/mL Total Protein (6.3-8.2) g/dL Albumin (3.5-5.0) g/dL Urine Color Yellow Urine Appearance Clear (Clear) Urine pH 5.5 (5.0-8.0) Ur Specific [place] 1.011 (1.001-1.035) Urine Protein Trace H (Negative) Urine Glucose (UA) Negative (Negative) Urine Ketones Negative (Negative) Urine Blood Negative (Negative) Urine Nitrite Negative (Negative) Urine Bilirubin Negative (Negative) Urine Urobilinogen <2.0 (<2.0) mg/dL Ur Leukocyte Esterase Negative (Negative) Disposition Clinical Impression: Dehydration, Osteomyelitis of lumbar spine Disposition: ADMITTED IP TO THIS [facility] Condition: Stable Is patient prescribed a controlled substance at d/c from ED?: No Referrals: Anuel Peters MD [Primary Care Provider] - 1-2 days Decision to Admit Reason: Admit from EC Decision Date: 01/05/19 Decision Time: 21:54
[2019-01-05 20:39] LABS: Basophils # (A) 0.1 k/uL (0-0.2); Basophils % (A) 1 %; Eosinophils # (A) 0.3 k/uL (0-0.7); Eosinophils % (A) 4 %; HCT 40.9 % (39.0-53.0); HGB 13.7 gm/dL (13.0-17.5); Lymphocytes # (A) 1.5 k/uL (1.0-4.8); Lymphocytes % (A) 18 %; MCH 27.5 pg (25.0-35.0); MCHC 33.5 g/dL (31.0-37.0); Monocytes # (A) 0.5 k/uL (0-1.0); Monocytes % (A) 7 %; Neutrophils # (A) 5.5 k/uL (1.3-7.7); Neutrophils % (A) 68 %; Platelet Count 302 k/uL (150-450); RBC 4.98 m/uL (4.30-5.90); RDW 14.2 % (11.5-15.5); WBC 8.1 k/uL (3.8-10.6)
[2019-01-05 20:45] LABS: MCV 82.1 fL (80.0-100.0)
--- NOTE | 2019-01-05 20:46 | XR ---
EXAMINATION TYPE: XR chest 2V DATE OF EXAM: 01/05/2019 COMPARISON: November 10, 2018 HISTORY: Syncope TECHNIQUE: Frontal and lateral views of the chest are obtained. FINDINGS: Heart and mediastinum are normal. Lungs are clear. Diaphragm is normal. Bony thorax appear s normal. IMPRESSION: Normal chest. No change.
[2019-01-05 20:50] LABS: Albumin 3.7 g/dL (3.5-5.0); Calcium 9.3 mg/dL (8.4-10.2); Magnesium 1.5 mg/dL (1.6-2.3); Potassium 3.4 mmol/L (3.5-5.1); Total Bilirubin 0.6 mg/dL (0.2-1.3); Total Protein 6.7 g/dL (6.3-8.2)
[2019-01-05 20:59] LABS: INR 0.8 (<1.2); Partial Thromboplastin Time 24.8 sec (22.0-30.0); Prothrombin Time 9.3 sec (9.0-12.0)
[2019-01-05 21:18] LABS: Appearance,Urine Clear (Clear); Bilirubin,Urine Negative (Negative); Blood,Urine Negative (Negative); Color,Urine Yellow; Glucose,Urine (UA) Negative (Negative); Ketones,Urine Negative (Negative); Leukocyte Esterase,Urine Negative (Negative); Nitrite,Urine Negative (Negative); PH, Urine 5.5 (5.0-8.0); Protein,Urine Trace (Negative); Specific Gravity,Urine 1.011 (1.001-1.035); Urobilinogen,Urine <2.0 mg/dL (<2.0)
[2019-01-05] MEDS ORDERED: ONDANSETRON 4 MG/2 ML VIAL IVP STA (21:23)
[2019-01-05] MEDS ORDERED: POTASSIUM CHLORIDE ER 20 MEQ TAB.ER PO STA (21:31)
[2019-01-05] MEDS ORDERED: SODIUM CHLORIDE 0.9% 1,000 ML IV ONE (21:31)
[2019-01-05] MEDS ORDERED: MAGNESIUM SULFATE-D5W PMX 1 GM in DEXTROSE/WATER 1 100ML.BAG IVPB ONE (21:31)
[2019-01-05] MEDS ORDERED: ceFAZolin 3 GM in SODIUM CHLORIDE 0.9% 100 ML IVPB ONE (21:43)
[2019-01-05] MEDS ORDERED: HYDROmorphone 0.5 MG/0.5 ML SYRINGE IVP PRN (21:49)
[2019-01-05] MEDS ORDERED: NALOXONE 0.4 MG/ML 1 ML VIAL IV PRN (21:49)
[2019-01-05] MEDS ORDERED: ACETAMINOPHEN TAB 325 MG TAB PO PRN (23:07)
[2019-01-05] MEDS: SODIUM CHLORIDE 0.9% 1,000 ML IV SCH (23:12)
[2019-01-05] MEDS: HYDROmorphone 1 MG/ML 1 ML SYRINGE IVP PRN (23:13)
[2019-01-06] MEDS: ONDANSETRON 4 MG/2 ML VIAL IVP PRN ×5 (00:19→23:57)
[2019-01-06] MEDS: ceFAZolin 3 GM in SODIUM CHLORIDE 0.9% 100 ML IVPB SCH ×2 (00:44→09:49)
[2019-01-06] MEDS: HYDROmorphone 1 MG/ML 1 ML SYRINGE IVP PRN ×7 (02:31→23:57)
[2019-01-06] MEDS: SODIUM CHLORIDE 0.9% 1,000 ML IV SCH ×2 (07:00→18:42)
[2019-01-06 11:47] LABS: Glucose,Whole Blood 149 mg/dL (75-99)
[2019-01-06] MEDS ORDERED: NITROGLYCERIN SL TABS 0.4 MG TAB SUBLINGUAL PRN (12:58)
[2019-01-06 14:57] VITALS: BMI 27.8
--- NOTE | 2019-01-06 17:17 | MR ---
EXAMINATION TYPE: MR lumbar spine wo/w con DATE OF EXAM: 01/06/2019 COMPARISON: MRI lumbar spine December 16, 2018 HISTORY: Ostemyelitis/epidural abscess progressing TECHNIQUE: Multiplanar, multisequence images of the lumbar spine is performed without and with IV contrast, util izing 10 mL intravenous Gadavist FINDINGS: Sagittal images of the lumbar spine show vertebral body heights and alignment to remain sat isfactory. There is persistent disc desiccation L3-L4 level without significant disc space narrowing. There is persistent moderate to severe disc space narrowing L5-S1 level. Posterior disc herniation L 3-L4 level is redemonstrated. The conus medullaris remains normal in position and signal ending super ior L1 level. The bone marrow signal intensity is within normal limits. Axial images show the T12-L1 and L1-L2 levels to remain within normal limits. Axial images at L2-L3 level demonstrate mild broad disc bulge mildly effacing the anterior thecal sac on axial image 43. Axial images at L3-L4 level show [id number] broad disc bulge with left paracentral disc protrus ion component effacing anterior thecal sac and causing mild bilateral anterior inferior neural forami nal narrowing. No significant change from prior. Axial images at the L4-L5 level show mild/moderate facet degenerative changes bilaterally. There is m ild broad disc bulge but spinal canal is preserved. Right-sided neural foramina is moderately narrowe d similar to prior study due to foraminal spur disc complex sagittal image 16 and axial image 31. Axial images at L5-S1 level redemonstrated moderate facet degenerative changes bilaterally with ligam entum flavum hypertrophy. There is subtle spondylolisthesis and right paracentral disc protrusion min imally effacing anterolateral thecal sac. Bilateral neural foramina are patent. There is enhancing epidural fat posterior to spinal canal beginning mid to inferior C4 level extendin g to superior S2 level seen best sagittal image 11 with extension in between spinous process L4-L5 an d L5-S1 levels redemonstrated. Some area of nonenhancement between spinous process L5-S1 level is les s prominent from prior study. Spinous processes at this level showed diminished T1 and slightly incre ased T2 signal with enhancement consistent with active osteomyelitis. No suspicious disc enhancement is seen. No significant fluid collection is identified. IMPRESSION: Persistent posterior epidural enhancing tissue consistent with active infection with oste omyelitis involving posterior elements L4-S1 levels most prominent L4-L5 level. No significant progre ssion or improvement from recent MRI. No significant focal fluid is noted.
[2019-01-06 17:27] LABS: Glucose,Whole Blood 201 mg/dL (75-99)
[2019-01-06] MEDS: INSULN ASP PRT/INSULIN ASPART 100 UNIT/ML 10 ML VIAL SQ SCH (17:56)
[2019-01-06] MEDS: INSULIN ASPART (NovoLOG) 100 UNIT/ML VIAL SQ SCH ×2 (17:56→21:51)
[2019-01-06] MEDS: CARVEDILOL 12.5 MG TAB PO SCH (17:56)
[2019-01-06] MEDS: ceFAZolin IN SWFI 2 GM/20 ML SYRINGE IVP SCH ×2 (17:56→23:57)
[2019-01-06 19:58] LABS: Glucose,Whole Blood 199 mg/dL (75-99)
[2019-01-06] MEDS: ATORVASTATIN 80 MG TAB PO SCH (21:50)
[2019-01-06] MEDS: hydrALAZINE HCL 50 MG TAB PO SCH (21:51)
--- NOTE | 2019-01-06 22:00 | CONS ---
CONSULTATION DATE OF SERVICE: 01/06/2019. REASON FOR CONSULTATION: Fever with concern for lumbar diskitis. HISTORY OF PRESENT ILLNESS: The patient is a 48 -year-old male, well known to my service. The patient did have a L4-L5 diskitis and a question of possible meningitis. Culture done at [facility] positive for group B strep. The patient did get a PICC line. Did receive 2 weeks of IV Rocephin 2 g q.12 hours. Subsequently was advised a 4 week course of Rocephin 2 g daily. The patient ended up getting 6 weeks of IV Rocephin and completed antibiotic therapy as of 12/17/2018. We did order a repeat MRI of the lumbosacral spine on 12/16/2018 to make sure all diskitis was all resolved before stopping his IV antibiotic therapy. Unfortunately, the MRI was not read officially until 12/19/2018. The MRI was personally reviewed with Dr. Andrews on 12/16/2018 and preliminary review I was told there was no evidence of any diskitis or abscess, hence the patient's antibiotics were discontinued in the form of Rocephin on 12/17/2018 and the patient was started on Keflex 500 mg p.o. q.6 hours for 2 weeks to be on the safe side. MRI subsequently was read on 12/19/2018 with report of worsening diskitis. The patient was contacted and at that point did not have any worsening back pain symptoms. Repeat sedimentation rate and CRP remained to be normal, a week after discussion of IV antibiotic therapy hence the patient was advised to continue with oral Keflex 500 mg q.6 hours and weekly monitoring of sedimentation rate and the CRP. The patient now presented to the [facility] ER last night with chief complaints of rigors and chills and concern for fever. However the patient did not take his temperature. The patient is complaining of pain in the lower back area, more of a dull aching to sharp about 7 out of 10, with some radiation to the right posterior leg area, the patient denies any bowel or bladder problem. No nausea, no vomiting. No abdominal pain or any diarrhea. On arrival to the ER, the patient was evaluated by the ER physician. The patient did have a chest x-ray which was reported to be negative. The patient temperature was 99.1 on presentation. His white count normal at 8.1. UA was negative. ER physician did call me last night. It was advised to get a sedimentation rate and CRP to get the blood cultures. Order an MRI and start the patient on cefazolin 2 g q.8 hours. As of this morning the patient fever pattern improved. No further fevers, chills, continues to complain of low back pain. No nausea, vomiting. No abdominal pain or any diarrhea. Currently waiting for MRI to be completed later this afternoon. REVIEW OF SYSTEMS: Constitutional: Positive for weakness along with the fever. Eyes no complaint. ENT no complaint. Respiratory no complaint. Cardiovascular no complaint. Genitourinary no complaint. Gastrointestinal: No complaint. Musculoskeletal as per HPI. Integument no complaint. PSYCHOLOGICAL: No complaint. Endocrine: No complaint. Neurologic no complaint. PAST MEDICAL HISTORY: Diabetes mellitus, gastroesophageal reflux disease, hypertension, syncope, angina, hiatal hernia, nephrolithiasis, right big toe diabetic foot ulcer and L4-5 diskitis. PAST SURGICAL HISTORY: Appendectomy, cholecystectomy, heart catheterization, renal angiogram, spinal tap. SOCIAL HISTORY: Remote history of smoking. Denies any drinking or drug use. FAMILY HISTORY: Father with history of coronary artery disease, diabetes mellitus, hypertension. Mother history of hypertension and lung cancer. ALLERGIES: VANCOMYCIN. MEDICATIONS: The patient is currently on Tylenol, Norvasc, Lipitor, Coreg, 2 g q.8h, hydralazine, Dilaudid. NovoLog, Narcan, Nitrostat, Zofran. PHYSICAL EXAMINATION: Blood pressure is 151/88 with a pulse of 68, temperature 98.6. He is 97% on room air. General description is a middle-aged male lying in bed in no distress. No tachypnea or accessory muscles of respiration use. HEENT: Shows no pallor or scleral icterus. Oral mucosa membranes are dry. No pharyngeal erythema or thrush. Neck trachea central. No thyromegaly. Lungs unlabored breathing. Clear to auscultation anteriorly. No wheeze or crackles. Heart S1, S2. Regular rate and rhythm. No murmur. ABDOMEN: Soft. No tenderness. No guarding. No rigidity. EXTREMITIES: No edema of the feet. Skin examination: No rash or mass palpable. Neurological: Patient is awake, alert, oriented x3. Mood and affect normal. LABS: Hemoglobin is 13.7, white count 8.1. BUN of 17, creatinine 1.47. CRP is 76.8, which was less than 0.4 about a week ago. Sedimentation rate is of 87, which was normal about a week ago. Chest x-ray negative. Urine is negative. DIAGNOSTIC IMPRESSION AND PLAN: Patient admitted to the hospital with fever and chills with worsening back pain. with elevated CRP and a Sed rate, concern likely for a diskitis of the lumbosacral spine. This seems to have failed to respond to the IV Rocephin therapy with question of similar pathogen that is group B strep or a different pathogen. PLAN: 1. We will wait for the MRI of the lumbosacral spine to compare with the MRI that was done on 12/16 to see if there is any significant worsening for the last more than 2 weeks or any development of any abscess that may need to be drained and make sure no evidence of any cord compromise. 2. Blood culture obtained, those will be followed. 3. Cefazolin 2 g q.8 hours to continue while waiting for the culture to finalize. 4. We will follow up on clinical condition and culture to further adjust medication if needed. Thank you for this consultation. Will follow this patient along with you. MMODL / IJN: [id number] /
--- NOTE | 2019-01-06 22:45 | P.HPIM ---
History of Present Illness H&P Date: 01/06/19 Chief Complaint: Back pain Patient is a 48-year-old male with a known history of hypertension, diabetes type 2, GERD, chronic low back pain, coronary artery disease with history of stent 4 placement in December 2018 and history of IV antibiotics via PICC line for L4-L5 discitis and questionable meningitis-completed antibiotics about 3 weeks ago came to ER with the complaints of worsening low back pain and generalized weakness along with subjective fevers and chills for the past few days. Patient is on follow-up with infectious disease clinic. He completed IV antibiotics about 3 weeks ago and then completed a course of Keflex. Otherwise denied any headache or dizziness. Patient does have some nausea. No episodes of vomiting. No complaints of chest pain or shortness of breath. No cough or sputum production. Chest x-ray showed no acute process. MRI of the lumbar spine was ordered. Review of Systems Constitutional: Patient does have subjective fever and chills . No generalized weakness or weight loss. Abdomen: Patient denied nausea vomiting and diarrhea and abdominal pain. Cardiovascular: Patient denies any chest pain or short of breath no palpitations. Respiratory: patient denied any cough is from production. No shortness of breath Neurologic: Patient denied any numbness or tingling headache. Musculoskeletal: Patient denies any complaints of joint swelling or deformity. Low back pain. Skin: Negative Psychiatric: Negative Endocrine: No heat or cold intolerance. No recent weight gain. Genitourinary: No dysuria or hematuria. All other 14 point ROS negative except the above Past Medical History Past Medical History: Chest Pain / Angina, Diabetes Mellitus, GERD/Reflux, Hypertension, Syncope Additional Past Medical History / Comment(s): NIDDM type II, hiatal hernia, nephrolithiasis, chronic low back pain, bilateral leg numbness, R great toe aibetic foot ulcer, past left olecranon bursitis, osteomyelitis in L4-L5 w /current treatment via PICC line History of Any Multi-Drug Resistant Organisms: MRSA Date of last positivie culture/infection: 12/21/16 MDRO Source:: Left axilla Past Surgical History: Appendectomy, Cholecystectomy, Heart Catheterization, Orthopedic Surgery Additional Past Surgical History / Comment(s): RENAL ANGIOGRAM 2005 for HTN, cardiac cath 2005, LT WRIST TENDON REPAIR 2013, RT ROTATOR CUFF REPAIR, bilateral knee arthroscopies, I&D L axillae. [address] Ha in December of 2018 Past Anesthesia/Blood Transfusion Reactions: No Reported Reaction Past Psychological History: No Psychological Hx Reported Additional Psychological History / Comment(s): Pt resides with his spouse and 3 children. 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 He resumed smoking in 2014 and is a 1.5ppd smoker. Past Drug Use History: None Reported - Past Family History Father Family Medical History: Coronary Artery Disease (CAD), Diabetes Mellitus, Hypertension Additional Family Medical History / Comment(s): pt. reports his father had a four vessel CABG Mother Family Medical History: Cancer, Hypertension Additional Family Medical History / Comment(s): LUNG CANCER(NON SMOKER) Medications and Allergies Home Medications Medication Instructions Recorded Confirmed Type Atorvastatin [Lipitor] 80 mg PO HS 11/11/18 01/05/19 History Losartan Potassium 100 mg PO DAILY 11/11/18 01/05/19 History Carvedilol [Coreg*] 25 mg PO BID-W/MEALS #60 tab 11/12/18 01/05/19 Rx Nitroglycerin Sl Tabs [Nitrostat] 0.4 mg SUBLINGUAL Q5M PRN #25 tab 11/12/18 01/05/19 Rx Prasugrel [Effient] 10 mg PO DAILY #30 tab 11/12/18 01/05/19 Rx hydrALAZINE HCL [Apresoline] 50 mg PO BID #60 tab 11/12/18 01/05/19 Rx metFORMIN HCL [Glucophage] 1,000 mg PO AC-BID #0 11/12/18 01/05/19 Rx Triamterene-Hctz 37.5-25Mg 1 each PO DAILY #30 tab 11/13/18 01/05/19 Rx [Maxzide 37.5-25] Cephalexin [Keflex] 500 mg PO QID 01/05/19 01/05/19 History Insulin NPH/Reg Insulin 70/30 30 units SQ BID 01/05/19 01/05/19 History [humuLIN 70/30 VIAL] amLODIPine [Norvasc] 5 mg PO DAILY 01/05/19 01/05/19 History glipiZIDE [Glucotrol] 10 mg PO BID 01/05/19 01/05/19 History Allergies Allergy/AdvReac Type Severity Reaction Status Date / Time vancomycin Allergy Unknown Verified 01/05/19 20:00 Physical Exam Vitals: Vital Signs Temp Pulse Pulse Resp BP BP Pulse Ox 01/06/19 07:00 97.7 F 59 L 16 111/69 97 01/06/19 01:20 97.6 F 64 18 138/85 98 01/06/19 00:52 98.3 F 69 16 135/86 98 01/05/19 23:03 98.2 F 68 18 145/99 97 01/05/19 21:09 77 18 136/92 93 L 01/05/19 19:42 99.1 F 86 18 139/94 98 Intake and Output 01/05/19 01/06/19 01/06/19 22:59 06:59 14:59 Intake Total 500 Balance 500 Intake: Intake, IV Titration 500 Amount Sodium Chloride 0.9% 1, 500 000 ml @ 100 mls/hr IV . Q10H [facility] Rx#:[id number] Other: Voiding Method Toilet Weight 101.151 kg PHYSICAL EXAMINATION: Patient is lying in the bed comfortably, no acute distress, awake alert and oriented.. HEENT: Normocephalic. Neck is supple. Pupils reactive. Nostrils clear. Oral cavity is moist. Ears reveal no drainage. Neck reveals no JVD, carotid bruits, or thyromegaly. CHEST EXAMINATION: Trachea is central. Symmetrical expansion. Lung rodriguez clear to auscultation and percussion. CARDIAC: Normal S1, S2 with no gallops. No murmurs ABDOMEN: Soft. Bowel sounds normal. No organomegaly. No abdominal bruits. Extremities: reveal no edema. No clubbing or cyanosis Neurologically awake, alert, oriented x3 with well-coordinated movements. No focal deficits noted Skin: No rash or skin lesions. Psychiatric: Coperative. Nonsuicidal Musculoskeletal: No joint swelling or deformity. Normal range of motion. Lumbar spinal tenderness. Results CBC & Chem 7: 01/05/19 20:02 01/05/19 20:02 Labs: Abnormal Lab Results - Last 24 Hours (Table) 01/05/19 01/05/19 01/05/19 Range/Units 20:00 20:00 20:02 ESR 87 H (0-15) mm/hr Potassium 3.4 L (3.5-5.1) mmol/L Creatinine 1.47 H (0.66-1.25) mg/dL Glucose 169 H (74-99) mg/dL POC Glucose (mg/dL) (75-99) mg/dL Magnesium 1.5 L (1.6-2.3) mg/dL C-Reactive Protein 76.8 H (<10.0) mg/L Urine Protein (Negative) 01/05/19 01/06/19 Range/Units 21:04 11:41 ESR (0-15) mm/hr Potassium (3.5-5.1) mmol/L Creatinine (0.66-1.25) mg/dL Glucose (74-99) mg/dL POC Glucose (mg/dL) 149 H (75-99) mg/dL Magnesium (1.6-2.3) mg/dL C-Reactive Protein (<10.0) mg/L Urine Protein Trace H (Negative) Thrombosis Risk Factor Assmnt - DVT/VTE Prophylaxis DVT/VTE Prophylaxis: Pharmacologic Prophylaxis ordered - Choose All That Apply Any of the Below Risk Factors Present?: Yes Each Factor Represents 1 point: Age 41-60 years, Obesity (BMI >25) Thrombosis Risk Factor Assessment Total Risk Factor Score: 2 Thrombosis Risk Factor Assessment Level: Low Risk Assessment and Plan Assessment: Worsening low back pain likely due to lumbar spinal discitis Recent history of L4-L5 discitis status post antibiotic treatment with Rocephin. Completed about 3 weeks ago Chronic low back pain Elevated ESR and CRP Euv-[id number]-sbiilhdgq diabetes type 2 Hyperlipidemia Nephrolithiasis history GERD Coronary artery disease. With recent stent 4 placement in December 2018 DVT prophylaxis Plan: Patient will be converted on Keflex IV as per ID recommendations. MRI of the lumbar spine was ordered. Patient will be continued on aspirin, prasugrel, status and Coreg. Continue with home blood pressure medications. ID was consulted. We'll follow up closely and further recommendations based on the clinical course. Time with Patient: Greater than 30
[2019-01-07] MEDS: HYDROmorphone 1 MG/ML 1 ML SYRINGE IVP PRN ×7 (03:10→23:05)
[2019-01-07] MEDS: SODIUM CHLORIDE 0.9% 1,000 ML IV SCH ×2 (03:56→16:53)
[2019-01-07 07:16] LABS: Glucose,Whole Blood 131 mg/dL (75-99)
[2019-01-07 08:13] LABS: Basophils # (A) 0.1 k/uL (0-0.2); Basophils % (A) 1 %; Eosinophils # (A) 0.3 k/uL (0-0.7); Eosinophils % (A) 6 %; HCT 34.8 % (39.0-53.0); HGB 11.9 gm/dL (13.0-17.5); Lymphocytes # (A) 1.1 k/uL (1.0-4.8); Lymphocytes % (A) 19 %; MCH 27.9 pg (25.0-35.0); MCHC 34.3 g/dL (31.0-37.0); MCV 81.3 fL (80.0-100.0); Mean Platelet Volume 7.4; Monocytes # (A) 0.4 k/uL (0-1.0); Monocytes % (A) 7 %; Neutrophils # (A) 3.6 k/uL (1.3-7.7); Neutrophils % (A) 64 %; Platelet Count 274 k/uL (150-450); RBC 4.28 m/uL (4.30-5.90); WBC 5.6 k/uL (3.8-10.6)
[2019-01-07 08:21] LABS: Anion Gap 7 mmol/L; Blood Urea Nitrogen 12 mg/dL (9-20); Calcium 9.1 mg/dL (8.4-10.2); Carbon Dioxide 27 mmol/L (22-30); Chloride 105 mmol/L (98-107); Glucose 144 mg/dL (74-99); Potassium 3.8 mmol/L (3.5-5.1); Sodium 139 mmol/L (137-145)
[2019-01-07] MEDS: INSULIN ASPART (NovoLOG) 100 UNIT/ML VIAL SQ SCH ×4 (08:35→21:43)
[2019-01-07] MEDS: CARVEDILOL 12.5 MG TAB PO SCH ×2 (08:47→17:59)
[2019-01-07] MEDS: PRASUGREL 10 MG TAB PO SCH (08:48)
[2019-01-07] MEDS: amLODIPine 5 MG TAB PO SCH (08:48)
[2019-01-07] MEDS: INSULN ASP PRT/INSULIN ASPART 100 UNIT/ML 10 ML VIAL SQ SCH ×3 (08:48→18:00)
[2019-01-07] MEDS: hydrALAZINE HCL 50 MG TAB PO SCH ×2 (08:48→21:43)
[2019-01-07 08:56] LABS: C Reactive Protein 53.7 mg/L (<10.0)
[2019-01-07] MEDS: ONDANSETRON 4 MG/2 ML VIAL IVP PRN ×2 (09:32→15:39)
[2019-01-07 11:57] LABS: Glucose,Whole Blood 261 mg/dL (75-99)
[2019-01-07] MEDS: ceFAZolin IN SWFI 2 GM/20 ML SYRINGE IVP SCH ×2 (12:29→18:00)
[2019-01-07 17:07] LABS: Glucose,Whole Blood 241 mg/dL (75-99)
[2019-01-07 19:50] LABS: Glucose,Whole Blood 195 mg/dL (75-99)
[2019-01-07] MEDS: ATORVASTATIN 80 MG TAB PO SCH (21:43)
--- NOTE | 2019-01-07 23:40 | PN ---
PROGRESS NOTE DATE OF SERVICE: 01/07/2019. REASON FOR FOLLOWUP: Lumbar diskitis. INTERVAL HISTORY: The patient is afebrile. The patient's symptoms of fever and chills have improved. The patient's low back pain is about the same, no worsening overall. Clinically the patient is feeling slightly better. Denies having headache. No chest pain, shortness of breath or cough. No abdominal pain and no diarrhea. PHYSICAL EXAMINATION: Blood pressure 130/82 with a pulse of 73, temperature 98.8. He is 97% on room air. GENERAL DESCRIPTION: A middle-aged male lying in bed in no distress. HEENT examination no pallor or scleral icterus. Oral mucosa is dry. LUNGS: Unlabored breathing. Clear to auscultation anteriorly. HEART: S1, S2. Regular rate and rhythm. LABS: Hemoglobin 11.8, white count 5.6 with a BUN of 12, creatinine 1.09. CRP down to 53.7 from admission high of 76.8. MRI of the lumbosacral spine did show evidence of diskitis but no worsening, no evidence of any fluid. MRI was also reviewed with radiologist, Dr. Jarrett. He mention doing CT-guided aspirate of the area for microbiological diagnosis. DIAGNOSTIC IMPRESSION/PLAN: Patient admitted to the hospital with a fever-like symptoms with worsening back pain. The patient did have a history of diskitis, failing Rocephin therapy. The patient clinically responding to the cefazolin during this admission with overall dissolution of the fever, decrease with CRP and patient is feeling better. Radiology recommended CT-guided aspirate of this area for better microbiological diagnosis. In view of the clinical response to cefazolin, the patient will get PICC line tomorrow. Continue with cefazolin 2 g every 8 hours for total of 6 weeks with weekly monitoring of CBC, BMP and sed rate. All his questions and concerns were answered. Once antibiotic arranged and PICC line is placed, should be able to go home from ID standpoint. MMODL / IJN: [id number] /
[2019-01-08] MEDS: SODIUM CHLORIDE 0.9% 1,000 ML IV SCH ×3 (00:28→20:36)
[2019-01-08] MEDS: ONDANSETRON 4 MG/2 ML VIAL IVP PRN (02:26)
[2019-01-08] MEDS: HYDROmorphone 1 MG/ML 1 ML SYRINGE IVP PRN ×7 (02:27→22:27)
[2019-01-08] MEDS: ceFAZolin IN SWFI 2 GM/20 ML SYRINGE IVP SCH ×5 (02:27→23:32)
[2019-01-08 07:11] LABS: Glucose,Whole Blood 146 mg/dL (75-99)
[2019-01-08] MEDS: CARVEDILOL 12.5 MG TAB PO SCH ×2 (08:15→17:52)
[2019-01-08] MEDS: INSULIN ASPART (NovoLOG) 100 UNIT/ML VIAL SQ SCH ×4 (08:15→20:31)
[2019-01-08] MEDS: PRASUGREL 10 MG TAB PO SCH (08:16)
[2019-01-08] MEDS: amLODIPine 5 MG TAB PO SCH (08:16)
[2019-01-08] MEDS: hydrALAZINE HCL 50 MG TAB PO SCH ×2 (08:16→20:31)
[2019-01-08] MEDS: INSULN ASP PRT/INSULIN ASPART 100 UNIT/ML 10 ML VIAL SQ SCH ×2 (09:05→17:52)
[2019-01-08 11:44] LABS: Glucose,Whole Blood 168 mg/dL (75-99)
[2019-01-08] MEDS ORDERED: DOCUSATE 100 MG CAP PO PRN (11:49)
--- NOTE | 2019-01-08 15:34 | PN ---
PROGRESS NOTE DATE OF SERVICE: 01/08/2019 REASON FOR FOLLOWUP: L4-5 diskitis. INTERVAL HISTORY: The patient is currently afebrile. The patient has been breathing comfortably. Denies having any chest pain. No shortness of breath or cough, no abdominal pain. Denies any worsening back pain. No . PHYSICAL EXAMINATION: Blood pressure 132/85 with a pulse of 73, temperature 98.2, he is 97% on room air. General description is a middle-aged male, lying in bed in no distress. RESPIRATORY SYSTEM: Unlabored breathing, clear to auscultation anteriorly. HEART: S1, S2. Regular rate and rhythm. ABDOMEN: Soft, no tenderness. LABS: No new labs have been obtained today. Blood culture has been negative. DIAGNOSTIC IMPRESSION AND PLAN: Patient with lumbar spine diskitis, failing outpatient Rocephin therapy. Patient seemed to have shown clinically improvement as far as the pain and fever and CRP with cefazolin. Hence, the patient will continue on cefazolin 2 g q.8 hours for total of 6 weeks. He will get a PICC line today. Antibiotic has been arranged for the patient. Once those are arranged, she is clear to go home from an ID standpoint. Continue supportive care. MMODL / IJN: [id number] /
[2019-01-08 17:14] LABS: Glucose,Whole Blood 146 mg/dL (75-99)
[2019-01-08 20:24] LABS: Glucose,Whole Blood 228 mg/dL (75-99)
[2019-01-08] MEDS: ATORVASTATIN 80 MG TAB PO SCH (20:31)
[2019-01-09] MEDS: HYDROmorphone 1 MG/ML 1 ML SYRINGE IVP PRN ×5 (01:40→15:04)
[2019-01-09 07:11] LABS: Glucose,Whole Blood 168 mg/dL (75-99)
[2019-01-09 07:48] VITALS: BP 182/92; PULSE 84; RESP 14; TEMP 98.3
[2019-01-09] MEDS: ONDANSETRON 4 MG/2 ML VIAL IVP PRN (07:54)
[2019-01-09] MEDS: hydrALAZINE HCL 50 MG TAB PO SCH (07:59)
[2019-01-09] MEDS: CARVEDILOL 12.5 MG TAB PO SCH (07:59)
[2019-01-09] MEDS: PRASUGREL 10 MG TAB PO SCH (07:59)
[2019-01-09] MEDS: amLODIPine 5 MG TAB PO SCH (07:59)
[2019-01-09] MEDS: INSULN ASP PRT/INSULIN ASPART 100 UNIT/ML 10 ML VIAL SQ SCH (08:00)
[2019-01-09] MEDS: INSULIN ASPART (NovoLOG) 100 UNIT/ML VIAL SQ SCH ×2 (08:01→12:39)
[2019-01-09] MEDS ORDERED: LIDOCAINE 1% INJ 10MG/ML (20 ML MDV) SQ ONE (10:45)
[2019-01-09] MEDS: ceFAZolin IN SWFI 2 GM/20 ML SYRINGE IVP SCH (11:26)
[2019-01-09 17:15] LABS: Glucose,Whole Blood 235 mg/dL (75-99)
--- NOTE | 2019-01-09 22:55 | P.PN ---
Subjective Progress Note Date: 01/07/19 Principal diagnosis: Lumbar discitis Patient is a 48-year-old male with a known history of hypertension, diabetes type 2, GERD, chronic low back pain, coronary artery disease with history of stent 4 placement in December 2018 and history of IV antibiotics via PICC line for L4-L5 discitis and questionable meningitis-completed antibiotics about 3 weeks ago came to ER with the complaints of worsening low back pain and generalized weakness along with subjective fevers and chills for the past few days. Patient is on follow-up with infectious disease clinic. He completed IV antibiotics about 3 weeks ago and then completed a course of Keflex. Otherwise denied any headache or dizziness. Patient does have some nausea. No episodes of vomiting. No complaints of chest pain or shortness of breath. No cough or sputum production. Chest x-ray showed no acute process. MRI of the lumbar spine was ordered. 01/08/2019 MRI of the lumbar spine showed persistence of infection lumbar discitis. Patient is being continued on IV Keflex. ID is following. No fever no chills. Otherwise patient is still complaining of lower back pain. No fever no chills. No nausea vomiting or abdominal pain no chest pain or shortness of breath. Objective - Vital Signs Vital signs: Vital Signs Temp 98.8 F 01/07/19 19:06 Pulse 68 01/07/19 19:06 Resp 16 01/07/19 19:06 BP 138/82 01/07/19 19:06 Pulse Ox 96 01/07/19 19:06 Intake & Output 01/07/19 01/07/19 01/08/19 06:59 18:59 06:59 Intake Total 1000 Output Total 500 Balance 500 Intake: Intake, IV Titration 1000 Amount Sodium Chloride 0.9% 1, 1000 000 ml @ 100 mls/hr IV . Q10H [facility] Rx#:[id number] Output: Urine 500 Other: Voiding Method Toilet # Voids 2 2 - Exam PHYSICAL EXAMINATION: Patient is lying in the bed comfortably, no acute distress, awake alert and oriented.. HEENT: Normocephalic. Neck is supple. Pupils reactive. Nostrils clear. Oral cavity is moist. Ears reveal no drainage. Neck reveals no JVD, carotid bruits, or thyromegaly. CHEST EXAMINATION: Trachea is central. Symmetrical expansion. Lung rodriguez clear to auscultation and percussion. CARDIAC: Normal S1, S2 with no gallops. No murmurs ABDOMEN: Soft. Bowel sounds normal. No organomegaly. No abdominal bruits. Extremities: reveal no edema. No clubbing or cyanosis Neurologically awake, alert, oriented x3 with well-coordinated movements. No focal deficits noted Skin: No rash or skin lesions. Psychiatric: Coperative. Nonsuicidal Musculoskeletal: No joint swelling or deformity. Normal range of motion. Lumbar spinal tenderness. - Labs CBC & Chem 7: 01/07/19 07:17 01/07/19 07:17 Labs: Abnormal Lab Results - Last 24 Hours (Table) 01/07/19 01/07/19 01/07/19 Range/Units 07:14 07:17 07:17 RBC 4.28 L (4.30-5.90) m/uL Hgb 11.9 L (13.0-17.5) gm/dL Hct 34.8 L (39.0-53.0) % Glucose (74-99) mg/dL POC Glucose (mg/dL) 131 H (75-99) mg/dL Hemoglobin A1c 9.0 H (4.0-6.0) % C-Reactive Protein (<10.0) mg/L 01/07/19 01/07/19 01/07/19 Range/Units 07:17 11:34 17:05 RBC (4.30-5.90) m/uL Hgb (13.0-17.5) gm/dL Hct (39.0-53.0) % Glucose 144 H (74-99) mg/dL POC Glucose (mg/dL) 261 H 241 H (75-99) mg/dL Hemoglobin A1c (4.0-6.0) % C-Reactive Protein 53.7 H (<10.0) mg/L 01/07/19 Range/Units 19:48 RBC (4.30-5.90) m/uL Hgb (13.0-17.5) gm/dL Hct (39.0-53.0) % Glucose (74-99) mg/dL POC Glucose (mg/dL) 195 H (75-99) mg/dL Hemoglobin A1c (4.0-6.0) % C-Reactive Protein (<10.0) mg/L Microbiology - Last 24 Hours (Table) 01/05/19 20:02 Blood Culture - Preliminary Blood No Growth after 24 hours Assessment and Plan Assessment: Worsening low back pain ldue to persistence of infection. lumbar spinal discitis Recent history of L4-L5 discitis status post antibiotic treatment with Rocephin. Completed about 3 weeks ago Chronic low back pain Elevated ESR and CRP Dkt-vykxyhu-exmzjxgep diabetes type 2 Hyperlipidemia Nephrolithiasis history GERD Coronary artery disease. With recent stent 4 placement in December 2018 DVT prophylaxis Plan: Patient will be converted on Keflex IV as per ID recommendations. MRI of the lumbar spine showed discitis.. Patient will be continued on aspirin, prasugrel, status and Coreg. Continue with home blood pressure medications. ID was consulted. We'll follow up closely and further recommendations based on the clinical course. Time with Patient: Greater than 30
--- NOTE | 2019-01-09 22:56 | P.PN ---
Subjective Progress Note Date: 01/08/19 Principal diagnosis: Lumbar discitis Patient is a 48-year-old male with a known history of hypertension, diabetes type 2, GERD, chronic low back pain, coronary artery disease with history of stent 4 placement in December 2018 and history of IV antibiotics via PICC line for L4-L5 discitis and questionable meningitis-completed antibiotics about 3 weeks ago came to ER with the complaints of worsening low back pain and generalized weakness along with subjective fevers and chills for the past few days. Patient is on follow-up with infectious disease clinic. He completed IV antibiotics about 3 weeks ago and then completed a course of Keflex. Otherwise denied any headache or dizziness. Patient does have some nausea. No episodes of vomiting. No complaints of chest pain or shortness of breath. No cough or sputum production. Chest x-ray showed no acute process. MRI of the lumbar spine was ordered. 01/08/2019 MRI of the lumbar spine showed persistence of infection lumbar discitis. Patient is being continued on IV Keflex. ID is following. No fever no chills. Otherwise patient is still complaining of lower back pain. No fever no chills. No nausea vomiting or abdominal pain no chest pain or shortness of breath. 01/09/2019 Patient is still complaining of low back pain now. No fever no chills. ID records PICC line and continue with IV antibiotics. Current medications reviewed. Objective - Vital Signs Vital signs: Vital Signs Temp 98.3 F 01/09/19 07:00 Pulse 84 01/09/19 07:00 Resp 14 01/09/19 07:00 BP 182/92 01/09/19 07:00 Pulse Ox 97 01/09/19 07:00 Intake & Output 01/09/19 01/09/19 01/10/19 06:59 18:59 06:59 Intake Total 600 Balance 600 Weight 101.151 kg Intake: Intake, IV Titration 200 Amount Sodium Chloride 0.9% 1, 200 000 ml @ 100 mls/hr IV . Q10H [facility] Rx#:[id number] Oral 400 - Exam PHYSICAL EXAMINATION: Patient is lying in the bed comfortably, no acute distress, awake alert and oriented.. HEENT: Normocephalic. Neck is supple. Pupils reactive. Nostrils clear. Oral cavity is moist. Ears reveal no drainage. Neck reveals no JVD, carotid bruits, or thyromegaly. CHEST EXAMINATION: Trachea is central. Symmetrical expansion. Lung rodriguez clear to auscultation and percussion. CARDIAC: Normal S1, S2 with no gallops. No murmurs ABDOMEN: Soft. Bowel sounds normal. No organomegaly. No abdominal bruits. Extremities: reveal no edema. No clubbing or cyanosis Neurologically awake, alert, oriented x3 with well-coordinated movements. No focal deficits noted Skin: No rash or skin lesions. Psychiatric: Coperative. Nonsuicidal Musculoskeletal: No joint swelling or deformity. Normal range of motion. Lumbar spinal tenderness. - Labs CBC & Chem 7: 01/07/19 07:17 01/07/19 07:17 Labs: Abnormal Lab Results - Last 24 Hours (Table) 01/09/19 01/09/19 Range/Units 07:09 11:36 POC Glucose (mg/dL) 168 H 235 H (75-99) mg/dL Microbiology - Last 24 Hours (Table) 01/05/19 20:02 Blood Culture - Preliminary Blood No Growth after 96 hours Assessment and Plan Assessment: Worsening low back pain ldue to persistence of infection. lumbar spinal discitis Recent history of L4-L5 discitis status post antibiotic treatment with Rocephin. Completed about 3 weeks ago Chronic low back pain Elevated ESR and CRP Mil-dknlqob-bzhwdumzx diabetes type 2 Hyperlipidemia Nephrolithiasis history GERD Coronary artery disease. With recent stent 4 placement in December 2018 DVT prophylaxis Plan: Patient will be converted on Keflex IV as per ID recommendations. MRI of the lumbar spine showed discitis.. Patient will be continued on aspirin, prasugrel, status and Coreg. Continue with home blood pressure medications. ID was consulted. We'll follow up closely and further recommendations based on the clinical course. Time with Patient: Greater than 30
--- NOTE | 2019-01-09 22:58 | P.DS ---
Providers Date of admission: 01/05/19 21:49 Expected date of discharge: 01/09/19 Attending physician: Benny Eddy MD Consults: 01/05/19 21:49 Consult Physician Urgent Consulting Provider: Ta Chappell Consult Reason/Comments: Concern for osteomyelitis, epidural abscess Do you want consulting provider notified?: Already Contacted Primary care physician: Fran Agee [facility] Course: Assessment diagnosis Worsening low back pain ldue to persistence of infection. lumbar spinal discitis Recent history of L4-L5 discitis status post antibiotic treatment with Rocephin. Completed about 3 weeks ago Chronic low back pain Elevated ESR and CRP Ack-ayzulvg-meqftimiu diabetes type 2 Hyperlipidemia Nephrolithiasis history GERD Coronary artery disease. With recent stent 4 placement in December 2018 DVT prophylaxis Hospital course Patient is a 48-year-old male with a known history of hypertension, diabetes type 2, GERD, chronic low back pain, coronary artery disease with history of stent 4 placement in December 2018 and history of IV antibiotics via PICC line for L4-L5 discitis and questionable meningitis-completed antibiotics about 3 weeks ago came to ER with the complaints of worsening low back pain and generalized weakness along with subjective fevers and chills for the past few days. Patient is on follow-up with infectious disease clinic. He completed IV antibiotics about 3 weeks ago and then completed a course of Keflex. Otherwise denied any headache or dizziness. Patient does have some nausea. No episodes of vomiting. No complaints of chest pain or shortness of breath. No cough or sputum production. Chest x-ray showed no acute process. MRI of the lumbar spine was ordered. 01/07/2019 MRI of the lumbar spine showed persistence of infection lumbar discitis. Patient is being continued on IV Keflex. ID is following. No fever no chills. Otherwise patient is still complaining of lower back pain. No fever no chills. No nausea vomiting or abdominal pain no chest pain or shortness of breath. 01/08/2019 Patient is still complaining of low back pain now. No fever no chills. ID records PICC line and continue with IV antibiotics. 01/09/2019 Patient did have PICC line placed and will be continued on antibiotics in the form of Keflex IV as per ID recommendations. Follow-up with ID clinic and his neurosurgeon. Javi evidence for home antibiotics IV infusion. Otherwise stable to be discharged home. Patient will be continued on aspirin, prasugrel, status and Coreg. Continue with home blood pressure medications. PHYSICAL EXAMINATION: Patient is lying in the bed comfortably, no acute distress, awake alert and oriented.. HEENT: Normocephalic. Neck is supple. Pupils reactive. Nostrils clear. Oral cavity is moist. Ears reveal no drainage. Neck reveals no JVD, carotid bruits, or thyromegaly. CHEST EXAMINATION: Trachea is central. Symmetrical expansion. Lung rodriguez clear to auscultation and percussion. CARDIAC: Normal S1, S2 with no gallops. No murmurs ABDOMEN: Soft. Bowel sounds normal. No organomegaly. No abdominal bruits. Extremities: reveal no edema. No clubbing or cyanosis Neurologically awake, alert, oriented x3 with well-coordinated movements. No focal deficits noted Skin: No rash or skin lesions. Psychiatric: Coperative. Nonsuicidal Musculoskeletal: No joint swelling or deformity. Normal range of motion. Vital Signs - 24 hr 01/09/19 01/09/19 01:30 07:00 Temperature 98.2 F 98.3 F Pulse Rate [ 66 84 Pulse Oximetery ] Respiratory 18 14 Rate Blood Pressure 162/88 182/92 [Right Arm] O2 Sat by Pulse 97 97 Oximetry Patient Condition at Discharge: Stable Plan - Discharge Summary Discharge Rx Participant: Yes New Discharge Prescriptions: New ceFAZolin [Kefzol] 2 gm IVP Q8HR #126 vial Continue Atorvastatin [Lipitor] 80 mg PO HS Losartan Potassium 100 mg PO DAILY Carvedilol [Coreg*] 25 mg PO BID-W/MEALS #60 tab hydrALAZINE HCL [Apresoline] 50 mg PO BID #60 tab Nitroglycerin Sl Tabs [Nitrostat] 0.4 mg SUBLINGUAL Q5M PRN #25 tab PRN Reason: Chest Pain Prasugrel [Effient] 10 mg PO DAILY #30 tab metFORMIN HCL [Glucophage] 1,000 mg PO AC-BID #0 Triamterene-Hctz 37.5-25Mg [Maxzide 37.5-25] 1 each PO DAILY #30 tab glipiZIDE [Glucotrol] 10 mg PO BID Insulin NPH/Reg Insulin 70/30 [humuLIN 70/30 VIAL] 30 units SQ BID amLODIPine [Norvasc] 5 mg PO DAILY Discontinued Cephalexin [Keflex] 500 mg PO QID Discharge Medication List Atorvastatin [Lipitor] 80 mg PO HS 11/11/18 [History] Losartan Potassium 100 mg PO DAILY 11/11/18 [History] Carvedilol [Coreg*] 25 mg PO BID-W/MEALS #60 tab 11/12/18 [Rx] Nitroglycerin Sl Tabs [Nitrostat] 0.4 mg SUBLINGUAL Q5M PRN #25 tab 11/12/18 [Rx] Prasugrel [Effient] 10 mg PO DAILY #30 tab 11/12/18 [Rx] hydrALAZINE HCL [Apresoline] 50 mg PO BID #60 tab 11/12/18 [Rx] metFORMIN HCL [Glucophage] 1,000 mg PO AC-BID #0 11/12/18 [Rx] Triamterene-Hctz 37.5-25Mg [Maxzide 37.5-25] 1 each PO DAILY #30 tab 11/13/18 [Rx] Insulin NPH/Reg Insulin 70/30 [humuLIN 70/30 VIAL] 30 units SQ BID 01/05/19 [History] amLODIPine [Norvasc] 5 mg PO DAILY 01/05/19 [History] glipiZIDE [Glucotrol] 10 mg PO BID 01/05/19 [History] ceFAZolin [Kefzol] 2 gm IVP Q8HR #126 vial 01/07/19 [Rx] Follow up Appointment(s)/Referral(s): Anuel Peters MD [Primary Care Provider] - 01/15/19 10:50 am [facility], [NON-STAFF] - [facility],Infusion [NON-STAFF] - Ta Chappell MD [STAFF PHYSICIAN] - 01/14/19 3:30 pm Ambulatory/Diagnostic Orders: Basic Metabolic Panel [LAB.AMB] Location: None Selected C Reactive Protein [LAB.AMB] Location: None Selected Complete Blood Count w/diff [LAB.AMB] Location: None Selected Erythrocyte Sedimentation Rate [LAB.AMB] Location: None Selected Patient Instructions/Handouts: Cefazolin (By injection), Dehydration (DC), Osteomyelitis (DC) Activity/Diet/Wound Care/Special Instructions: 100% covered for home IV antibiotics. [facility] delivered supplies on 01/08/19. [facility] will visit at 4:00 p.m. this evening. Discharge Disposition: HOME WITH HOME HEALTH SERVICES
== END 2019-01-09 15:15 | disposition home health service (06) | DRG 552 ==
LOC: EC 19:40 → 4MS4W 21:49 → 4SSUR 01-06 00:09
PROVIDERS: ADMIT Internal Medicine; ATTEND Internal Medicine
PROC: 05HY33Z Insertion of Infusion Device into Upper Vein, Percutaneous Approach (ICD-10-PCS; principal; 2019-01-09 10:26)
DX: M46.46 Discitis, unspecified, lumbar region (principal); M46.26 Osteomyelitis of vertebra, lumbar region; E11.69 Type 2 diabetes mellitus with other specified complication; E78.5 Hyperlipidemia, unspecified; E86.0 Dehydration; F17.210 Nicotine dependence, cigarettes, uncomplicated; G89.29 Other chronic pain; I10 Essential (primary) hypertension; I25.10 Atherosclerotic heart disease of native coronary artery without angina pectoris; K21.9 Gastro-esophageal reflux disease without esophagitis; K44.9 Diaphragmatic hernia without obstruction or gangrene; R20.0 Anesthesia of skin; Z79.02 Long term (current) use of antithrombotics/antiplatelets; Z79.4 Long term (current) use of insulin; Z79.899 Other long term (current) drug therapy; Z88.1 Allergy status to other antibiotic agents; Z95.5 Presence of coronary angioplasty implant and graft; Z87.442 Personal history of urinary calculi; Z90.49 Acquired absence of other specified parts of digestive tract; Z80.1 Family history of malignant neoplasm of trachea, bronchus and lung; Z82.49 Family history of ischemic heart disease and other diseases of the circulatory system; Z83.3 Family history of diabetes mellitus
CPT/HCPCS: 36415; 36573; 71046; 72158; 80048; 80053; 81003; 83036; 83605; 83735; 84484; 85025; 85610; 85652; 85730; 86140; 87040; 93005; 94760; 96361; 96365; 96368; 96375; 96376; 99285

== ENCOUNTER → 2019-01-13 | Outpatient (CLI) | payer BC ==
[2019-01-13 16:22] LABS: Basophils # (A) 0.2 k/uL (0-0.2); Basophils % (A) 2 %; Eosinophils # (A) 0.4 k/uL (0-0.7); Eosinophils % (A) 5 %; HCT 37.2 % (39.0-53.0); Lymphocytes # (A) 1.5 k/uL (1.0-4.8); Lymphocytes % (A) 21 %; MCH 27.7 pg (25.0-35.0); MCHC 34.9 g/dL (31.0-37.0); MCV 79.4 fL (80.0-100.0); Mean Platelet Volume 7.2; Monocytes # (A) 0.4 k/uL (0-1.0); Monocytes % (A) 6 %; Neutrophils # (A) 4.5 k/uL (1.3-7.7); Neutrophils % (A) 63 %; Platelet Count 408 k/uL (150-450); RBC 4.68 m/uL (4.30-5.90); RDW 14.7 % (11.5-15.5); WBC 7.2 k/uL (3.8-10.6)
[2019-01-13 17:26] LABS: Erythrocyte Sedimentation Rate 56 mm/hr (0-15)
[2019-01-13 23:15] LABS: Anion Gap 9.7 mmol/L (4.00-12.00); C Reactive Protein 1.2 mg/dL (0.0-0.8); Carbon Dioxide 30.3 mmol/L (21.6-31.8); Potassium 3.4 mmol/L (3.5-5.5)
== END | disposition home or self-care (01) ==
LOC: LABWHC1 15:26
PROVIDERS: ATTEND Internal Medicine Infectious Disease
DX: A49.1 Streptococcal infection, unspecified site (principal); M46.20 Osteomyelitis of vertebra, site unspecified; G06.1 Intraspinal abscess and granuloma
CPT/HCPCS: 36415; 80048; 85025; 85652; 86140

== ENCOUNTER 2019-01-23 21:42 | Inpatient (IN) | payer BC ==
--- NOTE | 2019-01-23 22:09 | ED ---
General Adult HPI - General Chief complaint: Recheck/Abnormal Lab/Rx Stated complaint: Dx Spinal Infection Complications Time Seen by Provider: 01/23/19 22:05 Source: patient Mode of arrival: ambulatory Limitations: no limitations - History of Present Illness Initial comments: Jeet is a 48-year-old gentleman with a history of chronic back pain however since October of this year he has been dealing with being back pain has been diagnosed with discitis, epidural abscess and osteomyelitis of the spine. Patient currently has a PICC line in place and is receiving cefazolin every 8 hours for treatment of osteomyelitis. Patient reports he's been compliant with these medications. Patient reports that over the past 3 weeks his pain is progressively been worsening he's been compliant with his home medications including Percocet. He has followed up with infectious disease and discussed the worsening pain with them. Patient saw infectious disease earlier this week and was advised that this pain continues to worsen he needs to be evaluated in the emergency department. Patient reports that this evening he can't get his pain under control so he came to the emergency department. Patient denies any loss of bowel or bladder continence he denies any obstipation or urinary retention. He reports he has pain and numbness in his bilateral legs but this is unchanged this week. He denies any weakness in his lower extremities he denies any saddle anesthesia. - Related Data Home Medications Medication Instructions Recorded Confirmed Atorvastatin [Lipitor] 80 mg PO HS 11/11/18 01/23/19 Losartan Potassium 100 mg PO DAILY 11/11/18 01/23/19 Insulin NPH/Reg Insulin 70/30 15 units SQ BID 01/05/19 01/23/19 [humuLIN 70/30 VIAL] amLODIPine [Norvasc] 5 mg PO DAILY 01/05/19 01/23/19 glipiZIDE [Glucotrol] 10 mg PO BID 01/05/19 01/23/19 Triamterene-Hctz 37.5-25Mg 1 tab PO DAILY 01/23/19 01/23/19 [Maxzide 37.5-25] oxyCODONE-APAP 10-325MG [Percocet 1 tab PO Q8H 01/23/19 01/23/19 10-325 mg] Previous Rx's Medication Instructions Recorded Carvedilol [Coreg*] 25 mg PO BID-W/MEALS #60 tab 11/12/18 Nitroglycerin Sl Tabs [Nitrostat] 0.4 mg SUBLINGUAL Q5M PRN #25 tab 11/12/18 Prasugrel [Effient] 10 mg PO DAILY #30 tab 11/12/18 hydrALAZINE HCL [Apresoline] 50 mg PO BID #60 tab 11/12/18 metFORMIN HCL [Glucophage] 1,000 mg PO AC-BID #0 11/12/18 ceFAZolin [Kefzol] 2 gm IVP Q8HR #126 vial 01/07/19 Allergies Allergy/AdvReac Type Severity Reaction Status Date / Time vancomycin Allergy Unknown Verified 01/23/19 21:57 Review of Systems ROS Statement: Those systems with pertinent positive or pertinent negative responses have been documented in the HPI. ROS Other: All systems not noted in ROS Statement are negative. Past Medical History Past Medical History: Chest Pain / Angina, Diabetes Mellitus, GERD/Reflux, Hypertension, Syncope Additional Past Medical History / Comment(s): NIDDM type II, hiatal hernia, nephrolithiasis, chronic low back pain, bilateral leg numbness, R great toe diabetic foot ulcer, past left olecranon bursitis, osteomyelitis in L4-L5 w/current treatment via PICC line History of Any Multi-Drug Resistant Organisms: MRSA Date of last positivie culture/infection: 12/21/16 MDRO Source:: Left axilla Past Surgical History: Appendectomy, Cholecystectomy, Heart Catheterization, Orthopedic Surgery Additional Past Surgical History / Comment(s): RENAL ANGIOGRAM 2005 for HTN, cardiac cath 2005, LT WRIST TENDON REPAIR 2013, RT ROTATOR CUFF REPAIR, bilateral knee arthroscopies, I&D L axillae. [address] Ha in December of 2018 Past Anesthesia/Blood Transfusion Reactions: No Reported Reaction Past Psychological History: No Psychological Hx Reported Smoking Status: Former smoker Past Alcohol Use History: None Reported Past Drug Use History: None Reported - Past Family History Father Family Medical History: Coronary Artery Disease (CAD), Diabetes Mellitus, Hypertension Additional Family Medical History / Comment(s): pt. reports his father had a four vessel CABG Mother Family Medical History: Cancer, Hypertension Additional Family Medical History / Comment(s): LUNG CANCER(NON SMOKER) General Exam - General Exam Comments Initial Comments: Physical Exam GENERAL: Uncomfortable appearing male, clammy pale skin HENT: Normocephalic, Atraumatic. EYES: PERRL, EOMI PULMONARY: Unlabored respirations. No audible rales rhonchi or wheezing was noted. CARDIOVASCULAR: There is a regular rate and rhythm without any murmurs gallops or rubs. ABDOMEN: Soft and nontender with normal bowel sounds. SKIN: Skin is clear with no lesions or rashes and otherwise unremarkable. : Deferred NEUROLOGIC: Patient is alert and oriented x3. Moving all extremities spontaneously Normal patellar and achiles reflexes bilaterally MUSCULOSKELETAL: Normal extremities with adequate strength and full range of motion. No lower extremity swelling or edema. No calf tenderness. PSYCHIATRIC: Normal psychiatric evaluation. Limitations: no limitations Limitations: no limitations Course Vital Signs 01/23/19 01/23/19 01/24/19 21:45 23:46 01:01 Temperature 98.5 F 98.0 F 98.2 F Pulse Rate 99 66 66 Respiratory 18 20 18 Rate Blood Pressure 154/98 131/88 125/84 O2 Sat by Pulse 97 98 98 Oximetry Medical Decision Making - Medical Decision Making The patient was seen and evaluated history was obtained from the patient and review of medical record This is a 48-year-old gentleman with recent osteomyelitis the lumbar spine currently receiving IV antibiotics since with worsening back pain On initial evaluation the patient is cool and clammy he appears uncomfortable Patient is ambulatory is normal lower extremity reflexes though he does report subjective numbness this is been persistent for a number of weeks and is unchanged today Repeat labs and imaging were ordered Labs appear much better than previous, there is no leukocytosis, CRP is not elevated Blood cultures were obtained Repeat computed tomography scan shows no signs of discitis or osteomyelitis Patient did receive 1 mg of Dilaudid however he reports after approximately 2 hours his pain is returning he still very uncomfortable at this time I will plan to patient patient in observation for pain management and possible MRI tomorrow. Patient states that he was scheduled for an outpatient MRI in the next week or 2. - Lab Data Result diagrams: 01/23/19 22:45 01/23/19 22:45 Lab Results 01/23/19 01/23/19 01/23/19 Range/Units 22:45 22:45 22:45 WBC 6.4 (3.8-10.6) k/uL RBC 4.41 (4.30-5.90) m/uL Hgb 12.3 L (13.0-17.5) gm/dL Hct 35.7 L (39.0-53.0) % MCV 81.1 (80.0-100.0) fL MCH 28.0 (25.0-35.0) pg MCHC 34.5 (31.0-37.0) g/dL RDW 14.5 (11.5-15.5) % Plt Count 340 (150-450) k/uL Neutrophils % 59 % Lymphocytes % 24 % Monocytes % 7 % Eosinophils % 5 % Basophils % 2 % Neutrophils # 3.8 (1.3-7.7) k/uL Lymphocytes # 1.6 (1.0-4.8) k/uL Monocytes # 0.5 (0-1.0) k/uL Eosinophils # 0.3 (0-0.7) k/uL Basophils # 0.1 (0-0.2) k/uL ESR 23 H (0-15) mm/hr PT (9.0-12.0) sec INR (<1.2) APTT (22.0-30.0) sec Sodium 138 (137-145) mmol/L Potassium 3.4 L (3.5-5.1) mmol/L Chloride 100 (98-107) mmol/L Carbon Dioxide 28 (22-30) mmol/L Anion Gap 10 mmol/L BUN 15 (9-20) mg/dL Creatinine 0.94 (0.66-1.25) mg/dL Est GFR (CKD-EPI)AfAm >90 (>60 ml/min/1.73 sqM) Est GFR (CKD-EPI)NonAf >90 (>60 ml/min/1.73 sqM) Glucose 268 H (74-99) mg/dL Plasma Lactic Acid Cb 2.0 (0.7-2.0) mmol/L Calcium 9.6 (8.4-10.2) mg/dL Total Bilirubin 0.5 (0.2-1.3) mg/dL AST 24 (17-59) U/L ALT 13 L (21-72) U/L Alkaline Phosphatase 73 (38-126) U/L Creatine Kinase 56 (55-170) U/L C-Reactive Protein <5.0 (<10.0) mg/L Total Protein 6.5 (6.3-8.2) g/dL Albumin 3.9 (3.5-5.0) g/dL 01/23/19 Range/Units 22:45 WBC (3.8-10.6) k/uL RBC (4.30-5.90) m/uL Hgb (13.0-17.5) gm/dL Hct (39.0-53.0) % MCV (80.0-100.0) fL MCH (25.0-35.0) pg MCHC (31.0-37.0) g/dL RDW (11.5-15.5) % Plt Count (150-450) k/uL Neutrophils % % Lymphocytes % % Monocytes % % Eosinophils % % Basophils % % Neutrophils # (1.3-7.7) k/uL Lymphocytes # (1.0-4.8) k/uL Monocytes # (0-1.0) k/uL Eosinophils # (0-0.7) k/uL Basophils # (0-0.2) k/uL ESR (0-15) mm/hr PT 10.7 (9.0-12.0) sec INR 1.0 (<1.2) APTT 25.9 (22.0-30.0) sec Sodium (137-145) mmol/L Potassium (3.5-5.1) mmol/L Chloride (98-107) mmol/L Carbon Dioxide (22-30) mmol/L Anion Gap mmol/L BUN (9-20) mg/dL Creatinine (0.66-1.25) mg/dL Est GFR (CKD-EPI)AfAm (>60 ml/min/1.73 sqM) Est GFR (CKD-EPI)NonAf (>60 ml/min/1.73 sqM) Glucose (74-99) mg/dL Plasma Lactic Acid Cb (0.7-2.0) mmol/L Calcium (8.4-10.2) mg/dL Total Bilirubin (0.2-1.3) mg/dL AST (17-59) U/L ALT (21-72) U/L Alkaline Phosphatase (38-126) U/L Creatine Kinase (55-170) U/L C-Reactive Protein (<10.0) mg/L Total Protein (6.3-8.2) g/dL Albumin (3.5-5.0) g/dL Disposition Clinical Impression: Osteomyelitis of lumbar spine, At risk for readmission to hospital Disposition: ADMITTED IP TO THIS HOSP Condition: Stable Is patient prescribed a controlled substance at d/c from ED?: No
[2019-01-23] MEDS ORDERED: HYDROmorphone 1 MG/ML 1 ML SYRINGE IVP STA (22:22)
[2019-01-23] MEDS: SODIUM CHLORIDE 0.9% 500 ML 500 ML IV SCH ×2 (22:57→23:59)
[2019-01-23 23:03] LABS: Basophils # (A) 0.1 k/uL (0-0.2); Basophils % (A) 2 %; Eosinophils # (A) 0.3 k/uL (0-0.7); Eosinophils % (A) 5 %; HCT 35.7 % (39.0-53.0); HGB 12.3 gm/dL (13.0-17.5); Lymphocytes # (A) 1.6 k/uL (1.0-4.8); Lymphocytes % (A) 24 %; MCHC 34.5 g/dL (31.0-37.0); MCV 81.1 fL (80.0-100.0); Mean Platelet Volume 7.1; Monocytes # (A) 0.5 k/uL (0-1.0); Monocytes % (A) 7 %; Neutrophils # (A) 3.8 k/uL (1.3-7.7); Neutrophils % (A) 59 %; Platelet Count 340 k/uL (150-450); RBC 4.41 m/uL (4.30-5.90); RDW 14.5 % (11.5-15.5); WBC 6.4 k/uL (3.8-10.6)
[2019-01-23 23:16] LABS: ALT 13 U/L (21-72); AST 24 U/L (17-59); Albumin 3.9 g/dL (3.5-5.0); Alkaline Phosphatase 73 U/L (38-126); Anion Gap 10 mmol/L; Blood Urea Nitrogen 15 mg/dL (9-20); C Reactive Protein <5.0 mg/L (<10.0); Calcium 9.6 mg/dL (8.4-10.2); Carbon Dioxide 28 mmol/L (22-30); Chloride 100 mmol/L (98-107); Creatine Kinase 56 U/L (55-170); Glucose 268 mg/dL (74-99); Potassium 3.4 mmol/L (3.5-5.1); Sodium 138 mmol/L (137-145); Total Bilirubin 0.5 mg/dL (0.2-1.3); Total Protein 6.5 g/dL (6.3-8.2)
[2019-01-23 23:19] LABS: Partial Thromboplastin Time 25.9 sec (22.0-30.0); Prothrombin Time 10.7 sec (9.0-12.0)
[2019-01-23] MEDS ORDERED: INSULIN ASPART (NovoLOG) 100 UNIT/ML VIAL SQ ONE (23:54)
[2019-01-24] MEDS: SODIUM CHLORIDE 0.9% 500 ML 500 ML IV SCH (00:01)
[2019-01-24 00:10] LABS: Erythrocyte Sedimentation Rate 23 mm/hr (0-15)
--- NOTE | 2019-01-24 00:14 | CT ---
EXAM: CT Lumbar Spine Without Intravenous Contrast, Without Intra-Articular Contrast CLINICAL HISTORY: Reason: pain, recent hx of discitis and epidural abscess TECHNIQUE: Axial computed tomography images of the lumbar spine without intravenous contrast, without intra-articular contrast. CTDI is 67.0 mGy and DLP is 2387 mGy-cm. This CT exam was performed using one or more of the following dose reduction techniques: automated exposure control, adjustment of the mA and/or kV according to patient size, and/or use of iterative reconstruction technique. Coronal and sagittal reformatted images were created and reviewed. COMPARISON: 10/24/18 FINDINGS: Vertebrae: Unremarkable. No acute fracture. Discs/spinal canal/neural foramina: No acute findings. No spinal canal stenosis. Minimal disc space narrowing at L5-S1. No change in alignment compared to prior study. There is no evidence of osteomyelitis is no evidence for discitis on this study Soft tissues: Unremarkable. IMPRESSION: No change in alignment compared to prior study
[2019-01-24] MEDS ORDERED: HYDROmorphone 1 MG/ML 1 ML SYRINGE IVP STA (00:24)
[2019-01-24] MEDS ORDERED: HYDROmorphone 0.5 MG/0.5 ML SYRINGE IVP PRN (00:25)
[2019-01-24] MEDS ORDERED: NALOXONE 0.4 MG/ML 1 ML VIAL IV PRN (00:25)
[2019-01-24 01:05] LABS: Glucose,Whole Blood 168 mg/dL (75-99)
[2019-01-24] MEDS: oxyCODONE-APAP 10-325MG 1 EACH TAB PO SCH ×4 (03:14→23:41)
[2019-01-24] MEDS: ceFAZolin IN SWFI 2 GM/20 ML SYRINGE IVP SCH ×3 (06:20→23:00)
[2019-01-24 06:50] LABS: Glucose,Whole Blood 49 mg/dL (75-99)
[2019-01-24 07:09] LABS: Glucose,Whole Blood 54 mg/dL (75-99)
[2019-01-24 07:31] LABS: Glucose,Whole Blood 70 mg/dL (75-99)
[2019-01-24] MEDS: INSULIN ASPART (NovoLOG) 100 UNIT/ML VIAL SQ SCH ×4 (08:20→21:58)
[2019-01-24] MEDS: PRASUGREL 10 MG TAB PO SCH (08:27)
[2019-01-24] MEDS: LOSARTAN 50 MG TAB PO SCH (08:28)
[2019-01-24] MEDS: CARVEDILOL 12.5 MG TAB PO SCH ×2 (08:28→17:12)
[2019-01-24] MEDS: amLODIPine 5 MG TAB PO SCH (08:28)
[2019-01-24] MEDS: hydrALAZINE HCL 50 MG TAB PO SCH ×2 (08:28→21:59)
[2019-01-24] MEDS: TRIAMTERENE-HCTZ 37.5-25MG 1 EACH TAB PO SCH (08:28)
[2019-01-24 11:44] LABS: Glucose,Whole Blood 244 mg/dL (75-99)
[2019-01-24] MEDS: HYDROmorphone 1 MG/ML 1 ML SYRINGE IVP PRN ×3 (13:01→21:49)
[2019-01-24 16:40] LABS: Glucose,Whole Blood 304 mg/dL (75-99)
[2019-01-24] MEDS: ATORVASTATIN 80 MG TAB PO SCH (20:29)
[2019-01-24 20:35] LABS: Glucose,Whole Blood 267 mg/dL (75-99)
[2019-01-25] MEDS: HYDROmorphone 1 MG/ML 1 ML SYRINGE IVP PRN ×8 (00:55→23:40)
[2019-01-25 03:10] LABS: Glucose,Whole Blood 249 mg/dL (75-99)
[2019-01-25 06:32] LABS: Basophils # (A) 0.1 k/uL (0-0.2); Basophils % (A) 2 %; Eosinophils # (A) 0.4 k/uL (0-0.7); Eosinophils % (A) 6 %; HCT 35.1 % (39.0-53.0); HGB 11.5 gm/dL (13.0-17.5); Lymphocytes # (A) 1.3 k/uL (1.0-4.8); Lymphocytes % (A) 23 %; MCH 27.6 pg (25.0-35.0); MCHC 32.8 g/dL (31.0-37.0); MCV 84.1 fL (80.0-100.0); Mean Platelet Volume 6.8; Monocytes # (A) 0.4 k/uL (0-1.0); Monocytes % (A) 6 %; Neutrophils # (A) 3.6 k/uL (1.3-7.7); Neutrophils % (A) 61 %; Platelet Count 292 k/uL (150-450); RBC 4.18 m/uL (4.30-5.90); RDW 14.4 % (11.5-15.5); WBC 5.9 k/uL (3.8-10.6)
[2019-01-25 06:43] LABS: Glucose,Whole Blood 219 mg/dL (75-99)
[2019-01-25] MEDS: ceFAZolin IN SWFI 2 GM/20 ML SYRINGE IVP SCH ×3 (06:49→22:20)
[2019-01-25 06:55] LABS: Anion Gap 7 mmol/L; Blood Urea Nitrogen 15 mg/dL (9-20); Calcium 9.1 mg/dL (8.4-10.2); Carbon Dioxide 29 mmol/L (22-30); Chloride 103 mmol/L (98-107); Glucose 221 mg/dL (74-99); Potassium 3.7 mmol/L (3.5-5.1); Sodium 139 mmol/L (137-145)
[2019-01-25] MEDS: INSULIN ASPART (NovoLOG) 100 UNIT/ML VIAL SQ SCH ×4 (07:54→20:23)
[2019-01-25] MEDS: oxyCODONE-APAP 10-325MG 1 EACH TAB PO SCH ×2 (07:55→16:22)
[2019-01-25] MEDS: PRASUGREL 10 MG TAB PO SCH (07:55)
[2019-01-25] MEDS: TRIAMTERENE-HCTZ 37.5-25MG 1 EACH TAB PO SCH (07:55)
[2019-01-25] MEDS: LOSARTAN 50 MG TAB PO SCH (07:55)
[2019-01-25] MEDS: amLODIPine 5 MG TAB PO SCH (07:55)
[2019-01-25] MEDS: CARVEDILOL 12.5 MG TAB PO SCH ×2 (07:55→16:47)
[2019-01-25] MEDS: hydrALAZINE HCL 50 MG TAB PO SCH ×2 (07:56→20:25)
--- NOTE | 2019-01-25 11:00 | P.HPIM ---
History of Present Illness H&P Date: 01/24/19 Chief Complaint: Severe back pain 48-year-old gentleman with a history of chronic back pain however since October of this year he has been dealing with being back pain has been diagnosed with discitis, epidural abscess and osteomyelitis of the spine. Patient currently has a PICC line in place and is receiving cefazolin every 8 hours for treatment of osteomyelitis. Patient reports he's been compliant with these medications. Patient reports that over the past 3 weeks his pain is progressively been worsening he's been compliant with his home medications including Percocet. He has followed up with infectious disease and discussed the worsening pain with them. Patient saw infectious disease earlier this week and was advised that this pain continues to worsen he needs to be evaluated in the emergency department. Patient reports that this evening he can't get his pain under control so he came to the emergency department. Patient denies any loss of bowel or bladder continence he denies any obstipation or urinary retention. He reports he has pain and numbness in his bilateral legs but this is unchanged this week. He denies any weakness in his lower extremities he denies any saddle anesthesia. Repeat labs and imaging were ordered Labs appear much better than previous, there is no leukocytosis, CRP is not elevated Blood cultures were obtained Repeat computed tomography scan shows no signs of discitis or osteomyelitis Patient did receive 1 mg of Dilaudid however he reports after approximately 2 hours his pain is returning he still very uncomfortable at this time I will plan to patient patient in observation for pain management and possible MRI. Patient states that he was scheduled for an outpatient MRI in the next week or 2. Review of Systems Constitutional: Denies chills, Denies fever Eyes: denies blurred vision, denies loss of vision Cardiovascular: Denies chest pain, Denies lightheadedness, Denies shortness of breath Respiratory: Denies cough with sputum, Denies hemoptysis Gastrointestinal: Denies abdominal pain, Denies nausea, Denies vomiting Genitourinary: Denies dysuria, Denies hematuria Musculoskeletal: Reports gait dysfunction, Reports limitation of motion, Reports muscle cramps, Denies arm numbness/tingling Neurological: Denies change in mentation, Denies double vision, Denies paresthesias, Denies visual changes Psychiatric: Denies confusion, Denies irritability, Denies mood swings Endocrine: Denies cold intolerance, Denies heat intolerance Past Medical History Past Medical History: Chest Pain / Angina, Diabetes Mellitus, GERD/Reflux, Hypertension, Syncope Additional Past Medical History / Comment(s): NIDDM type II, hiatal hernia, nephrolithiasis, chronic low back pain, bilateral leg numbness, R great toe diabetic foot ulcer, past left olecranon bursitis, osteomyelitis in L4-L5 w/current treatment via PICC line History of Any Multi-Drug Resistant Organisms: MRSA Date of last positivie culture/infection: 12/21/16 MDRO Source:: Left axilla Past Surgical History: Appendectomy, Cholecystectomy, Heart Catheterization, Orthopedic Surgery Additional Past Surgical History / Comment(s): RENAL ANGIOGRAM 2005 for HTN, cardiac cath 2005, LT WRIST TENDON REPAIR 2013, RT ROTATOR CUFF REPAIR, bilateral knee arthroscopies, I&D L axillae. [address] Ha in December of 2018 Past Anesthesia/Blood Transfusion Reactions: No Reported Reaction Past Psychological History: No Psychological Hx Reported Smoking Status: Former smoker Past Alcohol Use History: None Reported Past Drug Use History: None Reported - Past Family History Father Family Medical History: Coronary Artery Disease (CAD), Diabetes Mellitus, Hypertension Additional Family Medical History / Comment(s): pt. reports his father had a four vessel CABG Mother Family Medical History: Cancer, Hypertension Additional Family Medical History / Comment(s): LUNG CANCER(NON SMOKER) Medications and Allergies Home Medications Medication Instructions Recorded Confirmed Type Atorvastatin [Lipitor] 80 mg PO HS 11/11/18 01/23/19 History Losartan Potassium 100 mg PO DAILY 11/11/18 01/23/19 History Carvedilol [Coreg*] 25 mg PO BID-W/MEALS #60 tab 11/12/18 01/23/19 Rx Nitroglycerin Sl Tabs [Nitrostat] 0.4 mg SUBLINGUAL Q5M PRN #25 tab 11/12/18 01/23/19 Rx Prasugrel [Effient] 10 mg PO DAILY #30 tab 11/12/18 01/23/19 Rx hydrALAZINE HCL [Apresoline] 50 mg PO BID #60 tab 11/12/18 01/23/19 Rx metFORMIN HCL [Glucophage] 1,000 mg PO AC-BID #0 11/12/18 01/23/19 Rx Insulin NPH/Reg Insulin 70/30 15 units SQ BID 03/31/19 04/18/19 History [humuLIN 70/30 VIAL] amLODIPine [Norvasc] 5 mg PO DAILY 01/05/19 01/23/19 History glipiZIDE [Glucotrol] 10 mg PO BID 01/05/19 01/23/19 History ceFAZolin [Kefzol] 2 gm IVP Q8HR #126 vial 01/07/19 01/23/19 Rx Triamterene-Hctz 37.5-25Mg 1 tab PO DAILY 01/23/19 01/23/19 History [Maxzide 37.5-25] oxyCODONE-APAP 10-325MG [Percocet 1 tab PO Q8H 01/23/19 01/23/19 History 10-325 mg] Allergies Allergy/AdvReac Type Severity Reaction Status Date / Time vancomycin Allergy Unknown Verified 01/23/19 21:57 Physical Exam Vitals: Vital Signs Temp Pulse Pulse Resp BP BP Pulse Ox 01/24/19 07:49 97.5 F L 61 18 161/91 99 01/24/19 04:00 18 01/24/19 02:30 18 01/24/19 01:23 97.5 F L 64 18 152/90 98 01/24/19 01:01 98.2 F 66 18 125/84 98 01/23/19 23:46 98.0 F 66 20 131/88 98 01/23/19 21:45 98.5 F 99 18 154/98 97 Intake and Output 01/23/19 01/24/19 01/24/19 22:59 06:59 14:59 Other: Voiding Method Toilet Toilet # Voids 1 Weight 102.058 kg GENERAL: Uncomfortable appearing male, clammy pale skin HENT:Normocephalic, Atraumatic. EYES: PERRL, EOMI PULMONARY: Unlabored respirations. No audible rales rhonchi or wheezing was noted. CARDIOVASCULAR: There is a regular rate and rhythm without any murmurs gallops o r rubs. ABDOMEN: Soft and nontender with normal bowel sounds. SKIN: Skin is clear with no lesions or rashes and otherwise unremarkable. : Deferred NEUROLOGIC: Patient is alert and oriented x3. Moving all extremities spontaneously. Normal patellar and achiles reflexes bilaterally MUSCULOSKELETAL: Normal extremities with adequate strength and full range of motion. No lower extremity swelling or edema. No calf tenderness. PSYCHIATRIC: Normal psychiatric evaluation. Results CBC & Chem 7: 01/25/19 05:51 01/25/19 05:51 Labs: Abnormal Lab Results - Last 24 Hours (Table) 01/23/19 01/23/19 01/24/19 Range/Units 22:45 22:45 01:03 Hgb 12.3 L (13.0-17.5) gm/dL Hct 35.7 L (39.0-53.0) % ESR 23 H (0-15) mm/hr Potassium 3.4 L (3.5-5.1) mmol/L Glucose 268 H (74-99) mg/dL POC Glucose (mg/dL) 168 H (75-99) mg/dL ALT 13 L (21-72) U/L 01/24/19 01/24/19 01/24/19 Range/Units 06:49 07:08 07:30 Hgb (13.0-17.5) gm/dL Hct (39.0-53.0) % ESR (0-15) mm/hr Potassium (3.5-5.1) mmol/L Glucose (74-99) mg/dL POC Glucose (mg/dL) 49 L 54 L 70 L (75-99) mg/dL ALT (21-72) U/L Thrombosis Risk Factor Assmnt - Choose All That Apply Any of the Below Risk Factors Present?: Yes Each Factor Represents 1 point: Age 41-60 years, Obesity (BMI >25) Other Risk Factors: No Other congenital or acquired thrombophilia - If yes, enter type in comment: No Thrombosis Risk Factor Assessment Total Risk Factor Score: 2 Thrombosis Risk Factor Assessment Level: Low Risk Assessment and Plan Assessment: 1. Intractable back pain/inability to ambulate - Pain controlled in form of Dilaudid 1 mg IV every 3 hours when necessary - Continue with home dose of Percocet 10 mg by mouth every 8 hours 2. Discitis/epidural abscess/osteomyelitis of spine - Patient remains on Kefzol 2 mg IV every 8 hours - We will consult ID for further evaluation and recommendations in view of wo rsening back pain 3. Hypertension; stable on home dose of amlodipine 5 mg daily, Coreg 25 mg twice a day, hydralazine 50 mg twice a day and losartan 100 mg daily with Maxzid e 25 mg daily 4. Hyperlipidemia; continue with home dose of atorvastatin 50 mg daily at bedtime 5. DVT prophylaxis; SCDs CODE STATUS; full code Time with Patient: Greater than 30
[2019-01-25 11:42] LABS: Glucose,Whole Blood 306 mg/dL (75-99)
[2019-01-25 13:59] LABS: Hemoglobin A1C 8.9 % (4.0-6.0)
[2019-01-25 16:34] LABS: Glucose,Whole Blood 234 mg/dL (75-99)
--- NOTE | 2019-01-25 18:35 | P.PN ---
Subjective Progress Note Date: 01/25/19 Principal diagnosis: Intractable back pain Discitis/osteomyelitis of spine 48-year-old gentleman with a history of chronic back pain however since October of this year he has been dealing with being back pain has been diagnosed with discitis, epidural abscess and osteomyelitis of the spine. Patient currently has a PICC line in place and is receiving cefazolin every 8 hours for treatment of osteomyelitis. Patient reports he's been compliant with these medications. Patient reports that over the past 3 weeks his pain is progressively been worsening he's been compliant with his home medications including Percocet. He has followed up with infectious disease and discussed the worsening pain with them. Patient saw infectious disease earlier this week and was advised that this pain continues to worsen he needs to be evaluated in the emergency department. Patient reports that this evening he can't get his pain under control so he came to the emergency department. Patient denies any loss of bowel or bladder continence he denies any obstipation or urinary retention. He reports he has pain and numbness in his bilateral legs but this is unchanged this week. He denies any weakness in his lower extremities he denies any saddle anesthesia. 01/25/2019 Patient is seen and evaluated in the room at bedside; continues to complain of pain with minimal activity Vital signs are reviewed with a temperature 98.6, pulse 64, respiration 18 and blood pressure 136/85 Labs are stable with a white blood count of 5.9; blood glucoses ranging between 219- 306 Await further recommendations from ID for discharge planning Objective - Vital Signs Vital signs: Vital Signs Temp 98.4 F 01/25/19 08:00 Pulse 66 01/25/19 08:00 Resp 16 01/25/19 08:00 BP 131/84 01/25/19 08:00 Pulse Ox 95 01/25/19 08:00 Intake & Output 01/24/19 01/25/19 01/25/19 18:59 06:59 18:59 Intake Total 822 722 Output Total 2 Balance 822 720 Intake: Oral 822 722 Output: Urine 2 Other: Voiding Method Toilet Toilet # Voids 1 2 - Labs CBC & Chem 7: 01/25/19 05:51 01/25/19 05:51 Labs: Abnormal Lab Results - Last 24 Hours (Table) 01/24/19 01/24/19 01/24/19 Range/Units 11:42 16:23 20:33 RBC (4.30-5.90) m/uL Hgb (13.0-17.5) gm/dL Hct (39.0-53.0) % Glucose (74-99) mg/dL POC Glucose (mg/dL) 244 H 304 H 267 H (75-99) mg/dL 01/25/19 01/25/19 01/25/19 Range/Units 03:09 05:51 05:51 RBC 4.18 L (4.30-5.90) m/uL Hgb 11.5 L (13.0-17.5) gm/dL Hct 35.1 L (39.0-53.0) % Glucose 221 H (74-99) mg/dL POC Glucose (mg/dL) 249 H (75-99) mg/dL 01/25/19 Range/Units 06:40 RBC (4.30-5.90) m/uL Hgb (13.0-17.5) gm/dL Hct (39.0-53.0) % Glucose (74-99) mg/dL POC Glucose (mg/dL) 219 H (75-99) mg/dL Microbiology - Last 24 Hours (Table) 01/23/19 22:55 Blood Culture - Preliminary Blood No Growth after 24 hours 01/23/19 22:45 Blood Culture - Preliminary Blood No Growth after 24 hours Assessment and Plan Assessment: 1. Intractable back pain/inability to ambulate - Pain controlled in form of Dilaudid 1 mg IV every 3 hours when necessary - Continue with home dose of Percocet 10 mg by mouth every 8 hours 2. Discitis/epidural abscess/osteomyelitis of spine - Patient remains on Kefzol 2 mg IV every 8 hours - We will consult ID for further evaluation and recommendations in view of worsening back pain 3. Hypertension; stable on home dose of amlodipine 5 mg daily, Coreg 25 mg twice a day, hydralazine 50 mg twice a day and losartan 100 mg daily with Maxzide 25 mg daily 4. Hyperlipidemia; continue with home dose of atorvastatin 50 mg daily at bedtime 5. DVT prophylaxis; SCDs CODE STATUS; full code Time with Patient: Greater than 30
[2019-01-25 20:25] LABS: Glucose,Whole Blood 248 mg/dL (75-99)
[2019-01-25] MEDS: ATORVASTATIN 80 MG TAB PO SCH (20:25)
[2019-01-25 22:35] LABS: Glucose,Whole Blood 234 mg/dL (75-99)
[2019-01-26] MEDS: oxyCODONE-APAP 10-325MG 1 EACH TAB PO SCH ×3 (00:41→16:52)
[2019-01-26 02:02] LABS: Glucose,Whole Blood 304 mg/dL (75-99)
[2019-01-26] MEDS: HYDROmorphone 1 MG/ML 1 ML SYRINGE IVP PRN ×7 (03:28→22:59)
[2019-01-26] MEDS: ceFAZolin IN SWFI 2 GM/20 ML SYRINGE IVP SCH ×3 (05:48→22:59)
[2019-01-26 06:46] LABS: Glucose,Whole Blood 259 mg/dL (75-99)
[2019-01-26] MEDS: hydrALAZINE HCL 50 MG TAB PO SCH ×2 (07:56→20:15)
[2019-01-26] MEDS: PRASUGREL 10 MG TAB PO SCH (07:56)
[2019-01-26] MEDS: TRIAMTERENE-HCTZ 37.5-25MG 1 EACH TAB PO SCH (07:56)
[2019-01-26] MEDS: LOSARTAN 50 MG TAB PO SCH (07:56)
[2019-01-26] MEDS: amLODIPine 5 MG TAB PO SCH (07:57)
[2019-01-26] MEDS: CARVEDILOL 12.5 MG TAB PO SCH ×2 (07:57→16:52)
[2019-01-26] MEDS: INSULIN ASPART (NovoLOG) 100 UNIT/ML VIAL SQ SCH ×4 (07:57→20:15)
[2019-01-26 11:48] LABS: Glucose,Whole Blood 236 mg/dL (75-99)
--- NOTE | 2019-01-26 13:57 | P.PN ---
Subjective Progress Note Date: 01/26/19 Principal diagnosis: Intractable back pain Discitis/osteomyelitis of spine 48-year-old gentleman with a history of chronic back pain however since October of this year he has been dealing with being back pain has been diagnosed with discitis, epidural abscess and osteomyelitis of the spine. Patient currently has a PICC line in place and is receiving cefazolin every 8 hours for treatment of osteomyelitis. Patient reports he's been compliant with these medications. Patient reports that over the past 3 weeks his pain is progressively been worsening he's been compliant with his home medications including Percocet. He has followed up with infectious disease and discussed the worsening pain with them. Patient saw infectious disease earlier this week and was advised that this pain continues to worsen he needs to be evaluated in the emergency department. Patient reports that this evening he can't get his pain under control so he came to the emergency department. Patient denies any loss of bowel or bladder continence he denies any obstipation or urinary retention. He reports he has pain and numbness in his bilateral legs but this is unchanged this week. He denies any weakness in his lower extremities he denies any saddle anesthesia. 01/25/2019 Patient is seen and evaluated in the room at bedside; continues to complain of pain with minimal activity Vital signs are reviewed with a temperature 98.6, pulse 64, respiration 18 and blood pressure 136/85 Labs are stable with a white blood count of 5.9; blood glucoses ranging between 219- 306 Await further recommendations from ID for discharge planning 01/26/2019 Patient is seen and evaluated in the room at bedside; continue asked to require IV pain medication; hasn't been evaluated by ID; Dr. Chu is covering over the weekend and has been notified Vital signs are reviewed with a temperature of 98.0, pulse 70, respiration 18 and blood pressure 178/94; SpO2 of 95% on room air Patient continues to require large doses of pain medication; remains on home schedule of IV antibiotics for discitis/osteomyelitis; we await further recommendations from ID in regards to infectious etiology of worsening back pain; we will continue to monitor CBC Patient had an episode of marked hypoglycemia; we will continue to hold home dose of glipizide and insulin 70/30; continue with Accu-Cheks with insulin sliding scale Objective - Vital Signs Vital signs: Vital Signs Temp 98.0 F 01/26/19 08:00 Pulse 70 01/26/19 08:00 Resp 18 01/26/19 08:00 BP 178/94 01/26/19 08:00 Pulse Ox 95 01/26/19 08:00 Intake & Output 01/25/19 01/26/19 01/26/19 18:59 06:59 18:59 Intake Total 550 Balance 550 Intake: Oral 550 Other: Voiding Method Toilet Toilet Toilet # Voids 2 - Exam Uncomfortable appearing male, clammy pale skin HENT:Normocephalic, Atraumatic. EYES: PERRL, EOMI PULMONARY: Unlabored respirations. No audible rales rhonchi or wheezing was noted. CARDIOVASCULAR: There is a regular rate and rhythm without any murmurs gallops or rubs. ABDOMEN: Soft and nontender with normal bowel sounds. SKIN: Skin is clear with no lesions or rashes and otherwise unremarkable. : Deferred NEUROLOGIC: Patient is alert and oriented x3. Moving all extremities spontaneously. Normal patellar and achiles reflexes bilaterally MUSCULOSKELETAL: Normal extremities with adequate strength and full range of motion. No lower extremity swelling or edema. No calf tenderness. - Labs CBC & Chem 7: 01/25/19 05:51 01/25/19 05:51 Labs: Abnormal Lab Results - Last 24 Hours (Table) 01/25/19 01/25/19 01/25/19 Range/Units 05:51 11:40 16:33 POC Glucose (mg/dL) 306 H 234 H (75-99) mg/dL Hemoglobin A1c 8.9 H (4.0-6.0) % 01/25/19 01/25/19 01/26/19 Range/Units 20:14 22:33 02:00 POC Glucose (mg/dL) 248 H 234 H 304 H (75-99) mg/dL Hemoglobin A1c (4.0-6.0) % 01/26/19 Range/Units 06:44 POC Glucose (mg/dL) 259 H (75-99) mg/dL Hemoglobin A1c (4.0-6.0) % Microbiology - Last 24 Hours (Table) 01/23/19 22:55 Blood Culture - Preliminary Blood No Growth after 48 hours 01/23/19 22:45 Blood Culture - Preliminary Blood No Growth after 48 hours Assessment and Plan Assessment: 1. Intractable back pain/inability to ambulate - Pain controlled in form of Dilaudid 1 mg IV every 3 hours when necessary - Continue with home dose of Percocet 10 mg by mouth every 8 hours 2. Discitis/epidural abscess/osteomyelitis of spine - Patient remains on Kefzol 2 mg IV every 8 hours - We will consult ID for further evaluation and recommendations in view of worsening back pain 3. Hypertension; stable on home dose of amlodipine 5 mg daily, Coreg 25 mg twice a day, hydralazine 50 mg twice a day and losartan 100 mg daily with Maxzide 25 mg daily 4. Hyperlipidemia; continue with home dose of atorvastatin 50 mg daily at bedtime 5. DVT prophylaxis; SCDs CODE STATUS; full code Time with Patient: Greater than 30
[2019-01-26 16:45] LABS: Glucose,Whole Blood 287 mg/dL (75-99)
[2019-01-26 19:55] LABS: Glucose,Whole Blood 282 mg/dL (75-99)
[2019-01-26] MEDS: ATORVASTATIN 80 MG TAB PO SCH (20:15)
[2019-01-27] MEDS: oxyCODONE-APAP 10-325MG 1 EACH TAB PO SCH ×3 (00:39→16:45)
[2019-01-27 02:46] LABS: Glucose,Whole Blood 263 mg/dL (75-99)
[2019-01-27] MEDS: HYDROmorphone 1 MG/ML 1 ML SYRINGE IVP PRN ×7 (03:23→23:09)
[2019-01-27] MEDS: ceFAZolin IN SWFI 2 GM/20 ML SYRINGE IVP SCH ×3 (06:27→22:40)
[2019-01-27 06:43] LABS: Glucose,Whole Blood 284 mg/dL (75-99)
[2019-01-27 07:10] LABS: Basophils # (A) 0.1 k/uL (0-0.2); Basophils % (A) 2 %; Eosinophils # (A) 0.4 k/uL (0-0.7); Eosinophils % (A) 7 %; HCT 36.2 % (39.0-53.0); HGB 11.9 gm/dL (13.0-17.5); Lymphocytes # (A) 1.3 k/uL (1.0-4.8); Lymphocytes % (A) 23 %; MCH 27.8 pg (25.0-35.0); MCV 84.2 fL (80.0-100.0); Monocytes # (A) 0.4 k/uL (0-1.0); Monocytes % (A) 7 %; Neutrophils # (A) 3.4 k/uL (1.3-7.7); Neutrophils % (A) 58 %; Platelet Count 292 k/uL (150-450); RDW 14.5 % (11.5-15.5); WBC 5.8 k/uL (3.8-10.6)
[2019-01-27 07:20] LABS: Anion Gap 5 mmol/L; Blood Urea Nitrogen 17 mg/dL (9-20); C Reactive Protein 8.8 mg/L (<10.0); Calcium 9.6 mg/dL (8.4-10.2); Carbon Dioxide 32 mmol/L (22-30); Chloride 99 mmol/L (98-107); Glucose 297 mg/dL (74-99); Potassium 3.9 mmol/L (3.5-5.1); Sodium 136 mmol/L (137-145)
[2019-01-27] MEDS: CARVEDILOL 12.5 MG TAB PO SCH ×2 (07:46→16:45)
[2019-01-27] MEDS: LOSARTAN 50 MG TAB PO SCH (07:46)
[2019-01-27] MEDS: TRIAMTERENE-HCTZ 37.5-25MG 1 EACH TAB PO SCH (07:46)
[2019-01-27] MEDS: PRASUGREL 10 MG TAB PO SCH (07:46)
[2019-01-27] MEDS: INSULIN ASPART (NovoLOG) 100 UNIT/ML VIAL SQ SCH ×4 (07:46→21:49)
[2019-01-27] MEDS: hydrALAZINE HCL 50 MG TAB PO SCH ×2 (07:47→21:30)
[2019-01-27] MEDS: amLODIPine 5 MG TAB PO SCH (07:47)
[2019-01-27 09:32] LABS: Erythrocyte Sedimentation Rate 29 mm/hr (0-15)
--- NOTE | 2019-01-27 11:13 | CONS ---
CONSULTATION DATE OF SERVICE: REASON FOR CONSULTATION: Discitis and low back pain. HISTORY OF PRESENT ILLNESS: The patient is a 48-year-old male with past medical history significant for L4-5 discitis with previous aspirate at [facility], this grew group B strep. The patient was treated with Rocephin and the patient did have normalization of his Sed rate and CRP. Patient was on oral Keflex that he developed significant low back pain along with fever and chills and he was re-admitted to the hospital on 01/05/2019. At that point, the patient did have a repeat MRI of the lumbosacral spine which did not show any evidence of fluid collection, some features of discitis that apparently is slightly improved from his previous CAT scan. The patient did have elevated CRP and a Sed rate. The patient was started on IV cefazolin 2 grams q.8 and did have overall improvement in his symptoms. As the fluid could not be aspirated, the patient was advised to continue on cefazolin 2 grams q.8 for a total of 6 weeks and the patient did have overall improvement in his symptoms as well as his Sed rate and CRP with the CRP normalizing 2 weeks ago. The patient has now presented back to the [facility] ER on 01/23/2019 with chief complaints of worsening lower back pain. The patient lower back pain is throbbing to dull aching, almost 10/10, radiation to the both bilateral posterior low back and thigh area. The patient denies having any activity that may have aggravated his pain. Denied having any fever or any chills. On admission, the patient was afebrile. The patient did have a lumbar spine CT that was reported to be normal alignment and no evidence of any discitis or osteomyelitis. The patient has been continued on cefazolin 2 grams q.8. Infectious Disease was consulted for further recommendation. REVIEW OF SYSTEMS: Positive points have been mentioned in HPI. Rest of the system has been negative. PAST MEDICAL HISTORY: Diabetes mellitus, gastroesophageal reflux disease, hypertension, syncope, angina, hiatal hernia, nephrolithiasis, right and L4-5 discitis. PAST SURGICAL HISTORY: Appendectomy, cholecystectomy, heart catheterization, angiogram and spinal tap. SOCIAL HISTORY: Remote history of smoking, no drinking or any drug use. FAMILY HISTORY: Father history of coronary artery disease, diabetes mellitus. Mother history of hypertension and lung cancer. ALLERGIES: Allergies to VANCOMYCIN. MEDICATIONS: Medications include the patient is currently on Norvasc, Lipitor, Coreg, cefazolin 2 grams q.8. He is on hydralazine, Dilaudid, NovoLog, Cozaar, Narcan, Percocet, triamterene hydrochlorothiazide. PHYSICAL EXAMINATION: On examination, blood pressure is 128/75 with a pulse of 64, temperature 98. He is 92% on room air. General description is a middle-aged male lying in bed in no distress. No tachypnea or accessory muscle of respiration use. HEENT examination shows pallor. No scleral icterus. Oral mucous membrane is dry. No pharyngeal erythema or thrush. NECK; Trachea central. No thyromegaly. LUNGS: Unlabored breathing, clear to auscultation anteriorly. HEART: S1, S2. Regular rate and rhythm. ABDOMEN: Soft, no tenderness. No guarding or rigidity. EXTREMITIES: No edema of feet. Examination the lumbosacral spine area currently with no swelling or redness or tenderness. NEUROLOGICAL: Patient is awake, alert, oriented x3. Mood and affect normal. LABS: Hemoglobin 11.5, white count 5.9 with a BUN of [address] of the lumbar spine, no spinal canal stenosis, minimal disc space narrowing at L5-S1. No change in alignment compared to prior study. No evidence of osteomyelitis or discitis on this study. DIAGNOSTIC IMPRESSION AND PLAN: Patient with a history of L4-5 discitis. This patient is being admitted to the hospital with intractable low back pain with no history of recent trauma or increase in activity. The patient currently not running any fever or did have elevated white count with question of possible mechanical causes for underlying back pain, worsening discitis, less likely but not entirely excluded. PLAN: 1. We will repeat an MRI of the lumbosacral spine with contrast in a.m. for better definition of his underlying pathology. 2. Check a Sed rate and CRP. 3. Cefazolin 2 grams q.8 hours continue. 4. We will follow up on clinical condition and culture to further adjust medication if needed. Thank you for this consultation. Will follow this patient along with you. MMODL / IJN: [id number] /
--- NOTE | 2019-01-27 11:14 | P.PN ---
Subjective This is my first time to take care of the patient on 01/27/19 This is a pleasant 48 years old male with past medical history of coronary artery disease, status post cardiac cath, diabetes mellitus, GERD, hypertension, history of syncope/presyncope, history of chronic low back pain and bilateral leg numbness. History of great toe diabetic foot ulcer. He was recently diagnosed with osteomyelitis of the back at L4 to L5 and he is on antibiotics si fle 10/2018 This time he presents with more lower back pain. Patient states that he has this low back pain for about year and usually it is sluggishness/10 in severity, currently it is 8-9/10 in severity. He said that he has numbness in both legs but this is also been present for about a year. Patient says that his pain goes down to his both feet but more on the right side than the left. And he denies weakness in his legs but says that this is movement is limited by pain. Vitals been stable. CBC is unremarkable with no leukocytosis. ESR is 29, compared to 23 on admission. It was 87 on 01/05/2019. Creatinine was normal up with and rest of the BMP was unremarkable. His sugar was on the high side. C- reactive protein is 8.8 which is within normal limits. On admission he has CT of the lumbar spine was showing no change from prior study as per radiology report. Patient continued to be on cefazolin. Also he is on many pain medication. MRI of the back is ordered by infectious disease team. Also patient was to see orthopedic consult, he follows up with Dr. Leggett for pain management and Dr. Moraes for neurosurgical team as an outpatient. Also patient was taken metformin 1000 twice a day, glipizide twice a day, and sure about the dose and insulin 70:30 as 15 units twice a day. We will start insulin 7030 Review of systems CONSTITUTIONAL: No fever, no malaise, no fatigue. HEENT: No recent visual problems or hearing problems. Denied any sore throat. CARDIOVASCULAR: No orthopnea, PND, no palpitations, no syncope. PULMONARY: No shortness of breath, no cough, no hemoptysis. GASTROINTESTINAL: No diarrhea, no nausea, no vomiting, no abdominal pain. Normoactive bowel sounds. NEUROLOGICAL: No headaches, no weakness, no numbness. HEMATOLOGICAL: Denies any bleeding or petechiae. GENITOURINARY: Denies any burning micturition, frequency, or urgency. ENDOCRINE: Denies any polyuria or polydipsia. Medication: Norvasc, Lipitor, Coreg, cefazolin, hydro-lysing, Dilaudid, NovoLog, Cozaar, Percocet, Effient, triamterene/HCTZ. Objective - Vital Signs Vital signs: Vital Signs Temp 98.3 F 01/27/19 07:44 Pulse 64 01/27/19 08:00 Resp 18 01/27/19 08:00 BP 154/95 01/27/19 07:44 Pulse Ox 96 01/27/19 07:44 Intake & Output 01/26/19 01/27/19 01/27/19 18:59 06:59 18:59 Intake Total 480 Balance 480 Intake: Oral 480 Other: Voiding Method Toilet Toilet Toilet # Voids 2 - Exam GENERAL: The patient is alert and oriented x3, not in any acute distress. Well developed, well nourished. HEENT: Pupils are round and equally reacting to light. EOMI. No scleral icterus. No conjunctival pallor. Normocephalic, atraumatic. No pharyngeal erythema. No thyromegaly. CARDIOVASCULAR: S1 and S2 present. No murmurs, rubs, or gallops. PULMONARY: Chest is clear to auscultation, no wheezing or crackles. ABDOMEN: Soft, nontender, nondistended, normoactive bowel sounds. No palpable organomegaly. -MUSCULOSKELETAL: No joint swelling or deformity. Lower back tenderness EXTREMITIES: No cyanosis, clubbing, or pedal edema. -NEUROLOGICAL: Gross neurological examination did not reveal any focal deficits. No weakness in the lower extremity strength exam, however his examination is limited by pain in the lower back. He has some numbness in the medial side of the right leg at the lateral side of the left leg that goes up knees on both sides. Meningeal signs are absent. Cranial nn are grossly intact. SKIN: No rashes. - Labs CBC & Chem 7: 01/27/19 06:29 01/27/19 06:29 Labs: Abnormal Lab Results - Last 24 Hours (Table) 01/26/19 01/26/19 01/26/19 Range/Units 11:46 16:43 19:54 Hgb (13.0-17.5) gm/dL Hct (39.0-53.0) % ESR (0-15) mm/hr Sodium (137-145) mmol/L Carbon Dioxide (22-30) mmol/L Glucose (74-99) mg/dL POC Glucose (mg/dL) 236 H 287 H 282 H (75-99) mg/dL 01/27/19 01/27/19 01/27/19 Range/Units 02:44 06:29 06:29 Hgb 11.9 L (13.0-17.5) gm/dL Hct 36.2 L (39.0-53.0) % ESR 29 H (0-15) mm/hr Sodium 136 L (137-145) mmol/L Carbon Dioxide 32 H (22-30) mmol/L Glucose 297 H (74-99) mg/dL POC Glucose (mg/dL) 263 H (75-99) mg/dL 01/27/19 Range/Units 06:42 Hgb (13.0-17.5) gm/dL Hct (39.0-53.0) % ESR (0-15) mm/hr Sodium (137-145) mmol/L Carbon Dioxide (22-30) mmol/L Glucose (74-99) mg/dL POC Glucose (mg/dL) 284 H (75-99) mg/dL Microbiology - Last 24 Hours (Table) 01/23/19 22:55 Blood Culture - Preliminary Blood No Growth after 72 hours 01/23/19 22:45 Blood Culture - Preliminary Blood No Growth after 72 hours Assessment and Plan Assessment: Acute and chronic low back pain with numbness History of Osteomyelitis of the back and L4 to L5,on antibiotics Type 2 diabetes mellitus History of chronic low back pain and bilateral leg numbness History of Right great toe diabetic foot ulcer History of GERD History of syncope, near syncope History of coronary artery disease Plan: This is a pleasant 48 years old male with history of a somewhat colitis of the back. Presents with acute on chronic low back pain and chronic numbness in both legs. Infectious disease input is appreciated. Continue with antibiotics as per ID team recommendation. MRI of the lower back. Insulin therapy. Consult orthopedic team.Labs and medication were reviewed.. Continue same treatment. Continue with symptomatic treatment. Resume home medication. Monitor lytes and vitals. DVT and GI prophylaxis. Further recommendations of the clinical course of the patient DVT prophylaxis: Subcutaneous heparin GI Prophylaxis: Pepcid PT/OT: Pending Prognosis is guarded
--- NOTE | 2019-01-27 12:46 | MR ---
EXAMINATION TYPE: MR lumbar spine wo/w con DATE OF EXAM: 01/27/2019 COMPARISON: 01/06/2019 HISTORY: Low back pain and discitis CONTRAST: 10 mL intravenous Gadavist. TECHNIQUE: Multiplanar, multisequence images of the lumbar spine were acquired. FINDINGS: L5-S1: There is loss of disc height. Disc signal appears preserved. Mild disc bulge has anterior thec al sac contact. No AP spinal canal stenosis is present. Facet hypertrophy and ligamentum flavum laxit y is present. There is moderate right foraminal narrowing. L4-L5: No significant disc bulge or disc herniation. No spinal canal stenosis. There is moderate rig ht foraminal stenosis. L3-L4: Broad-based disc bulge is anterior thecal sac contact. No spinal canal stenosis or neural fora idalia stenosis is present. L2-L3: No significant disc bulge or disc herniation. No spinal canal stenosis. No foraminal stenosi s. . L1-L2: No significant disc bulge or disc herniation. No spinal canal stenosis. No foraminal stenosi s. . T12-L1: No significant disc bulge or disc herniation. No spinal canal stenosis. No foraminal stenos is. . No suspicious enhancement is evident. No endplate enhancement or obstruction is evident. There is improvement of the enhancement through the L4-5 L5-S1 levels in the posterior spinal soft ti ssues. Signal change within the spinous processes of L4 and L5 is more diffuse and diminished from co mparison suggesting improvement. No spinal canal stenosis is evident. IMPRESSION: 1. Improving enhancement pattern can be compatible some healing osteomyelitis within the posterior el ements of the L4 and L5 levels. No spinal canal stenosis is evident.
[2019-01-27 12:58] LABS: Glucose,Whole Blood 250 mg/dL (75-99)
[2019-01-27] MEDS: INSULN ASP PRT/INSULIN ASPART 100 UNIT/ML 10 ML VIAL SQ SCH ×2 (13:01→16:45)
[2019-01-27 16:42] LABS: Glucose,Whole Blood 334 mg/dL (75-99)
--- NOTE | 2019-01-27 20:22 | P.PN ---
Subjective Progress Note Date: 01/27/19 Principal diagnosis: Intractable low back pain L4/5 discitis The patient is afebrile continued to have some low back pain which seemed to be more positional no worsening compared to yesterday no bowel or bladder problem and denies having any chest pain shortness of breath or cough and no diarrhea Objective - Vital Signs Vital signs: Vital Signs Temp 98.3 F 01/27/19 07:44 Pulse 64 01/27/19 08:00 Resp 18 01/27/19 08:00 BP 154/95 01/27/19 07:44 Pulse Ox 96 01/27/19 07:44 Intake & Output 01/26/19 01/27/19 01/27/19 18:59 06:59 18:59 Intake Total 480 Balance 480 Intake: Oral 480 Other: Voiding Method Toilet Toilet Toilet # Voids 2 - Exam GENERAL DESCRIPTION: Male age male lying in bed in no distress RESPIRATORY SYSTEM: Unlabored breathing , clear to Auscultation HEART: S1 S2 regular rate and rhythm ,no loud murmurs ABDOMEN: Soft , no tenderness EXTREMITIES: No edema feet - Labs CBC & Chem 7: 01/27/19 06:29 01/27/19 06:29 Labs: Abnormal Lab Results - Last 24 Hours (Table) 01/26/19 01/26/19 01/27/19 Range/Units 16:43 19:54 02:44 Hgb (13.0-17.5) gm/dL Hct (39.0-53.0) % ESR (0-15) mm/hr Sodium (137-145) mmol/L Carbon Dioxide (22-30) mmol/L Glucose (74-99) mg/dL POC Glucose (mg/dL) 287 H 282 H 263 H (75-99) mg/dL 01/27/19 01/27/19 01/27/19 Range/Units 06:29 06:29 06:42 Hgb 11.9 L (13.0-17.5) gm/dL Hct 36.2 L (39.0-53.0) % ESR 29 H (0-15) mm/hr Sodium 136 L (137-145) mmol/L Carbon Dioxide 32 H (22-30) mmol/L Glucose 297 H (74-99) mg/dL POC Glucose (mg/dL) 284 H (75-99) mg/dL Microbiology - Last 24 Hours (Table) 01/23/19 22:55 Blood Culture - Preliminary Blood No Growth after 72 hours 01/23/19 22:45 Blood Culture - Preliminary Blood No Growth after 72 hours Assessment and Plan Assessment: 1-patient admitted hospital with intractable low back pain the patient is afebrile white count is normal CRP is normal as well and a sed rate is showing a downward trend patient did have MRI of the lumbosacral spine completed which did show overall improvement in his discitis, indicating his low back pain is more likely mechanical and needs more aggressive pain management for which ortho has been consulted Plan: 1-patient to continue with cefazolin 2 g every 6 hours to finish his 6 week c ourse of therapy 2-weekly monitoring of CBC BMP and a sed rate 3-more aggressively pain management per ortho and admitting team Time with Patient: Less than 30
[2019-01-27] MEDS ORDERED: SODIUM CHLORIDE 0.9% 1,000 ML IV SCH (20:45)
[2019-01-27 21:03] LABS: Glucose,Whole Blood 316 mg/dL (75-99)
[2019-01-27] MEDS: HEPARIN SODIUM,PORCINE 5,000 UNIT/ML 1 ML VIAL SQ SCH (21:30)
[2019-01-27] MEDS: FAMOTIDINE 20 MG/2 ML VIAL IV SCH (21:30)
[2019-01-27] MEDS: ATORVASTATIN 80 MG TAB PO SCH (21:30)
[2019-01-27] MEDS: glipiZIDE 10 MG TAB PO SCH (21:45)
--- NOTE | 2019-01-27 22:32 | P.CNOR ---
History of Present Illness - [facility] Consult date: 01/27/19 Requesting physician: Benny E Sheet Consult reason: low back pain, other (History of L4-5 osteomyelitis and disciti s) History of present illness: Patient is a very pleasant 48-year-old male who is seen and examined the bedside for further evaluation for acute on chronic low back pain with intractable back pain and history of discitis osteomyelitis. Patient states in October 2018 he had severe back pain and presented to [facility] for further evaluation. He states upon examination at the emergency department no significant findings were found at that time. He states he is given an injection of Dilaudid and discharged. The next day his pain continued to be significant and reported back to [facility] for further evaluation. He states once again he was discharged from the emergency department after receiving an injection of Dilaudid. The following day his pain continued to be unbearable. He presented to [facility] for further evaluation. He states on evaluation in the emergency department he was told his symptoms were too severe and his findings to significant and he was transferred to [facility] for further evaluation. He states he was found to have discitis osteomyelitis at L4-5. A PICC line was placed at that time. He has continued to be on IV antibiotics since that time. He was originally undergoing treatment with infectious disease through [facility]. He states his care was transferred back to the [place] area and he has been following with Dr. Chappell in infectious disease. He states his PICC line was removed approximately 2 weeks ago and then reinserted. He continues to be on IV Antibiotics. He states his pain was significantly exacerbated this past , 01/23/2019, after he was reaching forward to grab something. He presented to the hospital for further evaluation. No significant findings were found on his CT of the lumbar spine. Given his history he was admitted to observation for further evaluation. An MRI of the lumbar spine was performed today, 01/27/2019. Patient states prior to his exacerbation of back pain in October 2018 he had previously experienced pain that radiated from the lumbar spine, down the right posterior lateral thigh, and over the anterior lower extremities the top of the foot. He states since the exacerbation of pain since October 2018 he has pain that is intermittent and will vary from a 1 lower extremity for a couple weeks and then transfer to the other leg for a couple weeks. He has significant difficulty with working and regular activities of daily living. He's been off work since October 2018. He states prior to this exacerbation of symptoms he was a very active and participated in sport activities including playing softball. He has remained afebrile during this admission. His WBC lab results are currently 5.8. Patient states he follows with Dr. Leggett in the outpatient setting. He was previously referred to Dr. Bob Dickey who recommended him working through formal physical therapy. If he were to fail conservative treatment options they're planning to refer him to [facility] pain management. Past Medical History Past Medical History: Chest Pain / Angina, Diabetes Mellitus, GERD/Reflux, Hypertension, Syncope Additional Past Medical History / Comment(s): NIDDM type II, hiatal hernia, nephrolithiasis, chronic low back pain, bilateral leg numbness, R great toe diabetic foot ulcer, past left olecranon bursitis, osteomyelitis in L4-L5 w/current treatment via PICC line History of Any Multi-Drug Resistant Organisms: MRSA Year Discovered:: 12/21/16 MDRO Source:: Left axilla Past Surgical History: Appendectomy, Cholecystectomy, Heart Catheterization, Orthopedic Surgery Additional Past Surgical History / Comment(s): RENAL ANGIOGRAM 2005 for HTN, cardiac cath 2005, LT WRIST TENDON REPAIR 2013, RT ROTATOR CUFF REPAIR, bilateral knee arthroscopies, I&D L axillae. [address] Ha in December of 2018 Past Anesthesia/Blood Transfusion Reactions: No Reported Reaction Past Psychological History: No Psychological Hx Reported Smoking Status: Former smoker Past Alcohol Use History: None Reported Past Drug Use History: None Reported - Past Family History Father Family Medical History: Coronary Artery Disease (CAD), Diabetes Mellitus, Hypertension Additional Family Medical History / Comment(s): pt. reports his father had a four vessel CABG Mother Family Medical History: Cancer, Hypertension Additional Family Medical History / Comment(s): LUNG CANCER(NON SMOKER) Medications and Allergies Home Medications Medication Instructions Recorded Confirmed Type Atorvastatin [Lipitor] 80 mg PO HS 11/11/18 01/23/19 History Losartan Potassium 100 mg PO DAILY 11/11/18 01/23/19 History Carvedilol [Coreg*] 25 mg PO BID-W/MEALS #60 tab 11/12/18 01/23/19 Rx Nitroglycerin Sl Tabs [Nitrostat] 0.4 mg SUBLINGUAL Q5M PRN #25 tab 11/12/18 01/23/19 Rx Prasugrel [Effient] 10 mg PO DAILY #30 tab 11/12/18 01/23/19 Rx hydrALAZINE HCL [Apresoline] 50 mg PO BID #60 tab 11/12/18 01/23/19 Rx metFORMIN HCL [Glucophage] 1,000 mg PO AC-BID #0 11/12/18 01/23/19 Rx Insulin NPH/Reg Insulin 70/30 15 units SQ BID 01/05/19 01/23/19 History [humuLIN 70/30 VIAL] amLODIPine [Norvasc] 5 mg PO DAILY 01/05/19 01/23/19 History glipiZIDE [Glucotrol] 10 mg PO BID 01/05/19 01/23/19 History ceFAZolin [Kefzol] 2 gm IVP Q8HR #126 vial 01/07/19 01/23/19 Rx Triamterene-Hctz 37.5-25Mg 1 tab PO DAILY 01/23/19 01/23/19 History [Maxzide 37.5-25] oxyCODONE-APAP 10-325MG [Percocet 1 tab PO Q8H 01/23/19 01/23/19 History 10-325 mg] Allergies Allergy/AdvReac Type Severity Reaction Status Date / Time vancomycin Allergy Unknown Verified 01/23/19 21:57 Physical Examination Physical exam: Patient is awake, alert, and oriented 3 Vital signs stable Good chest excursion with deep inspiration and expiration Examination of lumbar spine reveals skin is intact with no abrasions, lacerations, or bruises; no erythema, purulence or signs of infection Pain with palpation along the midline of the lower lumbar spine Dorsiflexion, plantarflexion, and extensor hallucis longus positive sustained bilaterally Active range of motion is slow due to pain with bilateral hip flexion and knee extension Decreased sensation bilateral lower extremities below the knees Normal sensation bilateral lower extremities from the hips distal to the knees Positive straight leg test negative bilateral lower extremities No signs or symptoms of DVT; no calf pain No pain with internal and external rotation of the hips bilaterally Neurovascularly intact Results Pertinent studies: CT of the lumbar spine taken on 01/23/2019: Overall alignment appeared to be adequately maintained; L5-S1 degenerative disc disease; no evidence of osteomyelitis or discitis on this study; no evidence of vertebral body compression fracture; no evidence of spinal canal stenosis MRI of the lumbar spine with and without contrast taken on 01/27/2019: Improvement of the L4-5 and L5-S1 levels and the posterior spinal soft tissue and signal change within the spinous process of L4 and L5 is more diffuse and di minished as compared to previous imaging taken on 01/06/2019; L5-S1 degenerative disc disease, mild disc bulge, facet hypertrophy, and ligamentum flavum laxity; L4-5 moderate neural foraminal stenosis; L3-4 broad-based disc bulging; no evidence of significant spinal canal stenosis throughout the lumbar spine - Labs Labs: Abnormal Lab Results - Last 24 Hours (Table) 01/26/19 01/27/19 01/27/19 Range/Units 19:54 02:44 06:29 Hgb 11.9 L (13.0-17.5) gm/dL Hct 36.2 L (39.0-53.0) % ESR 29 H (0-15) mm/hr Sodium (137-145) mmol/L Carbon Dioxide (22-30) mmol/L Glucose (74-99) mg/dL POC Glucose (mg/dL) 282 H 263 H (75-99) mg/dL 01/27/19 01/27/19 01/27/19 Range/Units 06:29 06:42 12:57 Hgb (13.0-17.5) gm/dL Hct (39.0-53.0) % ESR (0-15) mm/hr Sodium 136 L (137-145) mmol/L Carbon Dioxide 32 H (22-30) mmol/L Glucose 297 H (74-99) mg/dL POC Glucose (mg/dL) 284 H 250 H (75-99) mg/dL 01/27/19 Range/Units 16:41 Hgb (13.0-17.5) gm/dL Hct (39.0-53.0) % ESR (0-15) mm/hr Sodium (137-145) mmol/L Carbon Dioxide (22-30) mmol/L Glucose (74-99) mg/dL POC Glucose (mg/dL) 334 H (75-99) mg/dL Microbiology - Last 24 Hours (Table) 01/23/19 22:55 Blood Culture - Preliminary Blood No Growth after 72 hours 01/23/19 22:45 Blood Culture - Preliminary Blood No Growth after 72 hours H & H 01/23/19 01/25/19 01/27/19 Range/Units 22:45 05:51 06:29 Hgb 12.3 L 11.5 L 11.9 L (13.0-17.5) gm/dL Hct 35.7 L 35.1 L 36.2 L (39.0-53.0) % Coagulation 01/23/19 Range/Units 22:45 INR 1.0 (<1.2) Result Diagrams: 01/27/19 06:29 01/27/19 06:29 Assessment and Plan Assessment: Assessment: Intractable low back pain Acute on chronic low back pain History of L4-5 discitis/osteomyelitis PICC line currently intact Right lower extremity radiculopathy L5-S1 degenerative disc disease and facet arthropathy L4-5 right neural foraminal stenosis History of diabetes mellitus and hypertension (1) Intractable low back pain Current Visit: Yes Status: Acute Code(s): M54.5 - LOW BACK PAIN SNOMED Code(s): 65510375483262149 (2) Acute exacerbation of chronic low back pain Current Visit: Yes Status: Acute Code(s): M54.5 - LOW BACK PAIN; G89.29 - OTHER CHRONIC PAIN SNOMED Code(s): 013062860 (3) Radiculopathy with lower extremity symptoms Current Visit: Yes Status: Acute Code(s): M54.10 - RADICULOPATHY, SITE UNSPECIFIED SNOMED Code(s): 46426556 (4) Degenerative disc disease at L5-S1 level Current Visit: Yes Status: Acute Code(s): M51.36 - OTHER INTERVERTEBRAL DISC DEGENERATION, LUMBAR REGION SNOMED Code(s): 25673914 (5) Facet arthritis, degenerative, L5-S1 level, lumbosacral spine Current Visit: Yes Status: Acute Code(s): M47.817 - SPONDYLS W/O MYELOPATHY OR RADICULOPATHY, LUMBOSACR REGION SNOMED Code(s): 929379648 (6) Neural foraminal stenosis of lumbar spine Current Visit: Yes Status: Acute Code(s): M99.83 - OTHER BIOMECHANICAL LESIONS OF LUMBAR REGION SNOMED Code(s): 194900537743 (7) History of discitis Current Visit: Yes Status: Acute Code(s): Z87.39 - PERSONAL HISTORY OF DISEASES OF THE MS SYS AND CONN TISS SNOMED Code(s): 102257140 (8) Status post PICC central line placement Current Visit: Yes Status: Acute Code(s): Z95.828 - PRESENCE OF OTHER VASCULAR IMPLANTS AND GRAFTS SNOMED Code(s): 794336953 (9) History of diabetes mellitus Current Visit: Yes Status: Acute Code(s): Z86.39 - PERSONAL HISTORY OF ENDO, NUTRITIONAL AND METABOLIC DISEASE SNOMED Code(s): 021760636 (10) History of hypertension Current Visit: Yes Status: Acute Code(s): Z86.79 - PERSONAL HISTORY OF OTHER DISEASES OF THE CIRCULATORY SYSTEM SNOMED Code(s): 514787326 Plan: Plan: 1. Patient has been discussed in detail with Dr. Denny Marcial. Imaging has been reviewed by myself and Dr. Denny Marcial. At this time, we will plan to have the patient continue with conservative treatment regards to his lumbar spine. He was previously diagnosed with L4-5 discitis osteomyelitis. Recent imaging does not show evidence of osteomyelitis or discitis at his lumbar spine. Recent lumbar MRI has been compared to previous imaging from 01/06/2019 which the report states enhancement at L4-5 levels has had improvement. He has remained afebrile. His WBC is currently 5.8. He clinically does not appear to have osteomyelitist discitis. Patient does have some L4-5 right neural foraminal stenosis and L5-S1 degenerative disc disease. After reviewing the imaging, we do not recommend surgical intervention. There are no current indications in which surgical intervention could provide significant improvement of his symptoms. He continues keep the PICC line intact as previously placed. He continues to follow with Dr. Chappell in infectious disease in the outpatient setting. We discussed he should continue to follow with Dr. Chappell and exhaust all conservative treatment options. He is also known to follow with Dr. Leggett and Dr. Bob Dickey in the outpatient setting for treatment and evaluation. We discussed he may continue to follow with those care providers and proceed forward with treatment as needed. Patient is stable from an orthopedic spine standpoint and is clear for discharge. Following discharge, we'll plan to have him follow up on an as-needed basis. 2. Patient will continue to be seen and examined by Dr. Chappell in infectious disease and medicine. Time with Patient: Greater than 30 (Including obtaining history, physical examination, reviewing of imaging, and dictation.)
[2019-01-28] MEDS: oxyCODONE-APAP 10-325MG 1 EACH TAB PO SCH ×2 (01:52→08:55)
[2019-01-28] MEDS: HYDROmorphone 1 MG/ML 1 ML SYRINGE IVP PRN ×4 (02:22→12:55)
[2019-01-28] MEDS: ceFAZolin IN SWFI 2 GM/20 ML SYRINGE IVP SCH ×2 (05:51→12:58)
[2019-01-28 06:19] LABS: Basophils # (A) 0.1 k/uL (0-0.2); Basophils % (A) 2 %; Eosinophils # (A) 0.4 k/uL (0-0.7); Eosinophils % (A) 7 %; Lymphocytes # (A) 1.3 k/uL (1.0-4.8); Lymphocytes % (A) 23 %; MCH 27.8 pg (25.0-35.0); MCHC 33.4 g/dL (31.0-37.0); MCV 83.2 fL (80.0-100.0); Mean Platelet Volume 7.2; Monocytes # (A) 0.4 k/uL (0-1.0); Monocytes % (A) 7 %; Neutrophils # (A) 3.5 k/uL (1.3-7.7); Neutrophils % (A) 60 %; Platelet Count 283 k/uL (150-450); RBC 4.33 m/uL (4.30-5.90); RDW 14.5 % (11.5-15.5); WBC 5.8 k/uL (3.8-10.6)
[2019-01-28 06:34] LABS: Anion Gap 8 mmol/L; Blood Urea Nitrogen 16 mg/dL (9-20); Calcium 9.8 mg/dL (8.4-10.2); Carbon Dioxide 29 mmol/L (22-30); Chloride 102 mmol/L (98-107); Glucose 186 mg/dL (74-99); Potassium 3.4 mmol/L (3.5-5.1); Sodium 139 mmol/L (137-145)
[2019-01-28 06:35] LABS: Glucose,Whole Blood 208 mg/dL (75-99)
[2019-01-28 07:35] VITALS: BP 134/81; PULSE 65; RESP 18; TEMP 98.4
[2019-01-28] MEDS: glipiZIDE 10 MG TAB PO SCH (07:58)
[2019-01-28] MEDS: LOSARTAN 50 MG TAB PO SCH (07:58)
[2019-01-28] MEDS: amLODIPine 5 MG TAB PO SCH (07:58)
[2019-01-28] MEDS: CARVEDILOL 12.5 MG TAB PO SCH (07:58)
[2019-01-28] MEDS: PRASUGREL 10 MG TAB PO SCH (07:59)
[2019-01-28] MEDS: TRIAMTERENE-HCTZ 37.5-25MG 1 EACH TAB PO SCH (07:59)
[2019-01-28] MEDS: FAMOTIDINE 20 MG/2 ML VIAL IV SCH (07:59)
[2019-01-28] MEDS: hydrALAZINE HCL 50 MG TAB PO SCH (07:59)
[2019-01-28] MEDS: INSULN ASP PRT/INSULIN ASPART 100 UNIT/ML 10 ML VIAL SQ SCH (08:00)
[2019-01-28] MEDS: HEPARIN SODIUM,PORCINE 5,000 UNIT/ML 1 ML VIAL SQ SCH (08:00)
[2019-01-28 08:13] LABS: Glucose,Whole Blood 263 mg/dL (75-99)
[2019-01-28] MEDS: INSULIN ASPART (NovoLOG) 100 UNIT/ML VIAL SQ SCH ×2 (08:53→12:21)
[2019-01-28 11:46] LABS: Glucose,Whole Blood 341 mg/dL (75-99)
[2019-01-28] MEDS ORDERED: POTASSIUM CHLORIDE ER 20 MEQ TAB.ER PO STA (13:52)
--- NOTE | 2019-01-28 14:06 | P.DS ---
Providers Date of admission: 01/24/19 06:16 Attending physician: Will Pineda MD Consults: 01/25/19 10:54 Consult Physician Routine Consulting Provider: Ta Chappell Consult Reason/Comments: Osteomyelitis of spine/ intractable back pain Do you want consulting provider notified?: Yes 01/27/19 11:08 Consult Physician Routine Consulting Provider: Dennise Marcial Consult Reason/Comments: intractable back pain, Hx of osteomyelitis Do you want consulting provider notified?: Yes 01/27/19 11:13 Consult Physician Urgent Consulting Provider: Dennise Marcial Consult Reason/Comments: back pain , acute on chronic Do you want consulting provider notified?: Yes Primary care physician: Fran De Leon [facility] Course: Diagnoses Acute and chronic low back pain with numbness History of Osteomyelitis of the back and L4 to L5,on antibiotics. Improvement Type 2 diabetes mellitus History of chronic low back pain and bilateral leg numbness History of Right great toe diabetic foot ulcer History of GERD History of syncope, near syncope History of coronary artery disease Diagnoses: This is a pleasant 48 years old male with past medical history of coronary artery disease, status post cardiac cath, diabetes mellitus, GERD, hypertension, history of syncope/presyncope, history of chronic low back pain and bilateral leg numbness. History of great toe diabetic foot ulcer. He was recently diagnosed with osteomyelitis of the back at L4 to L5 and he is on antibiotics since 10/2018 This time he presents with more lower back pain. Patient states that he has this low back pain for about year and usually it is 7/10 in severity, currently it is 8-9/10 in severity. He said that he has numbness in both legs but this is also been present for about a year. Patient says that his pain goes down to his both feet but more on the right side than the left. And he denies weakness in his legs but says that this is movement is limited by pain. On exam the patient did not have weakness in his legs. Vitals been stable. CBC is unremarkable with no leukocytosis. ESR is 29, compared to 23 on admission. It was 87 on 01/05/2019. Creatinine was normal up with and rest of the BMP was unremarkable. His sugar was on the high side. C-reactive protein is 8.8 which is within normal limits. On admission he has CT of the lumbar spine was showing no change from prior study as per radiology report. Patient continued to be on cefazolin. Also he is on many pain medication. MRI of the back showed improvement enhancement pattern compatible with feeling osteomyelitis at L4 to L5, no spinal stenosis. Patient has been evaluated by infectious disease team and by orthopedic team, both recommended conservative treatment and to continue the same treatment.he already follows up with Dr. Leggett for pain management and Dr. Dickey for neurosurgical team as an outpatient. Dr. Moraes recommended for him massage therapy and he will see him in one month as per patient. Patient states that he has his pain medication at home Percocet tens-325 mg, he takes an every 8 hours. Patient has instructed to take the same pain medication and follow-up with his PCP, pain management and Dr. Moraes and he agrees. Patient was cleared for discharge by ID and orthopedic team Problems and management plan was discussed with the patient in details and he verbalized understanding and acceptance Patient was found stable and can be discharged home however he needs follow-up as an outpatient. GENERAL: The patient is alert and oriented x3, not in any acute distress. Well developed, well nourished. CARDIOVASCULAR: S1 and S2 present. No murmurs, rubs, or gallops. PULMONARY: Chest is clear to auscultation, no wheezing or crackles. ABDOMEN: Soft, nontender, nondistended, normoactive bowel sounds. No palpable organomegaly. -MUSCULOSKELETAL: No joint swelling or deformity. Lower back tenderness EXTREMITIES: No cyanosis, clubbing, or pedal edema. -NEUROLOGICAL: Gross neurological examination did not reveal any focal deficits. No weakness in the lower extremity strength exam, however his examination is limited by pain in the lower back. He has some numbness in the medial side of the right leg at the lateral side of the left leg that goes up knees on both sides. Meningeal signs are absent. Cranial nn are grossly intact. SKIN: No rashes. Time spent more than 35 minutes Patient Condition at Discharge: Stable Plan - Discharge Summary Discharge Rx Participant: No New Discharge Prescriptions: Continue Atorvastatin [Lipitor] 80 mg PO HS Losartan Potassium 100 mg PO DAILY Carvedilol [Coreg*] 25 mg PO BID-W/MEALS #60 tab hydrALAZINE HCL [Apresoline] 50 mg PO BID #60 tab Nitroglycerin Sl Tabs [Nitrostat] 0.4 mg SUBLINGUAL Q5M PRN #25 tab PRN Reason: Chest Pain Prasugrel [Effient] 10 mg PO DAILY #30 tab metFORMIN HCL [Glucophage] 1,000 mg PO AC-BID #0 glipiZIDE [Glucotrol] 10 mg PO BID Insulin NPH/Reg Insulin 70/30 [humuLIN 70/30 VIAL] 15 units SQ BID amLODIPine [Norvasc] 5 mg PO DAILY ceFAZolin [Kefzol] 2 gm IVP Q8HR #126 vial oxyCODONE-APAP 10-325MG [Percocet 10-325 mg] 1 tab PO Q8H Triamterene-Hctz 37.5-25Mg [Maxzide 37.5-25] 1 tab PO DAILY Discharge Medication List Atorvastatin [Lipitor] 80 mg PO HS 11/11/18 [History] Losartan Potassium 100 mg PO DAILY 11/11/18 [History] Carvedilol [Coreg*] 25 mg PO BID-W/MEALS #60 tab 11/12/18 [Rx] Nitroglycerin Sl Tabs [Nitrostat] 0.4 mg SUBLINGUAL Q5M PRN #25 tab 11/12/18 [Rx] Prasugrel [Effient] 10 mg PO DAILY #30 tab 11/12/18 [Rx] hydrALAZINE HCL [Apresoline] 50 mg PO BID #60 tab 11/12/18 [Rx] metFORMIN HCL [Glucophage] 1,000 mg PO AC-BID #0 11/12/18 [Rx] Insulin NPH/Reg Insulin 70/30 [humuLIN 70/30 VIAL] 15 units SQ BID 01/05/19 [History] amLODIPine [Norvasc] 5 mg PO DAILY 01/05/19 [History] glipiZIDE [Glucotrol] 10 mg PO BID 01/05/19 [History] ceFAZolin [Kefzol] 2 gm IVP Q8HR #126 vial 01/07/19 [Rx] Triamterene-Hctz 37.5-25Mg [Maxzide 37.5-25] 1 tab PO DAILY 01/23/19 [History] oxyCODONE-APAP 10-325MG [Percocet 10-325 mg] 1 tab PO Q8H 01/23/19 [History] Follow up Appointment(s)/Referral(s): Anuel Peters MD [Primary Care Provider] - 1-2 days [facility], [NON-STAFF] - 1-2 Days [facility] [NON-STAFF] - As Needed Yonis Leggett MD [STAFF PHYSICIAN] - 1 Week Bob Dickey MD [REFERRING] - 1 Week Ta Chappell MD [STAFF PHYSICIAN] - 02/04/19 Patient Instructions/Handouts: Osteomyelitis (DC) Activity/Diet/Wound Care/Special Instructions: diabetic 1800 K yumiko per day diet activity is limited till you see your doctor Discharge Disposition: HOME SELF-CARE
[2019-01-28] MEDS ORDERED: FAMOTIDINE 20 MG TAB PO SCH (21:00)
--- NOTE | 2019-01-29 22:13 | P.PN ---
Subjective Progress Note Date: 01/28/19 Principal diagnosis: Intractable low back pain L4/5 discitis The patient denies any fever or chills, the patient back pain did have some improvement with pain medication which seemed to be more positional no worsening compared to yesterday no bowel or bladder problem and denies having any chest pain shortness of breath or cough and no diarrhea Objective - Vital Signs Vital signs: Vital Signs Temp 98.4 F 01/28/19 07:00 Pulse 65 01/28/19 07:00 Resp 18 01/28/19 07:00 BP 134/81 01/28/19 07:00 Pulse Ox 96 01/28/19 07:00 Intake & Output 01/27/19 01/28/19 01/28/19 18:59 06:59 18:59 Intake Total 444 240 Balance 444 240 Intake: Oral 444 240 Other: Voiding Method Toilet Toilet Toilet # Voids 2 2 - Exam GENERAL DESCRIPTION: Male age male lying in bed in no distress RESPIRATORY SYSTEM: Unlabored breathing , clear to Auscultation HEART: S1 S2 regular rate and rhythm ,no loud murmurs ABDOMEN: Soft , no tenderness EXTREMITIES: No edema feet - Labs CBC & Chem 7: 01/28/19 06:04 01/28/19 06:04 Labs: Abnormal Lab Results - Last 24 Hours (Table) 01/27/19 01/27/19 01/27/19 Range/Units 12:57 16:41 20:40 Hgb (13.0-17.5) gm/dL Hct (39.0-53.0) % Potassium (3.5-5.1) mmol/L Glucose (74-99) mg/dL POC Glucose (mg/dL) 250 H 334 H 316 H (75-99) mg/dL 01/28/19 01/28/19 01/28/19 Range/Units 06:04 06:04 06:34 Hgb 12.0 L (13.0-17.5) gm/dL Hct 36.0 L (39.0-53.0) % Potassium 3.4 L (3.5-5.1) mmol/L Glucose 186 H (74-99) mg/dL POC Glucose (mg/dL) 208 H (75-99) mg/dL 04/23/19 04/23/19 Range/Units 08:10 11:44 Hgb (13.0-17.5) gm/dL Hct (39.0-53.0) % Potassium (3.5-5.1) mmol/L Glucose (74-99) mg/dL POC Glucose (mg/dL) 263 H 341 H (75-99) mg/dL Microbiology - Last 24 Hours (Table) 01/23/19 22:55 Blood Culture - Preliminary Blood No Growth after 96 hours 01/23/19 22:45 Blood Culture - Preliminary Blood No Growth after 96 hours Assessment and Plan Assessment: 1-patient admitted hospital with intractable low back pain the patient is afebrile white count is normal CRP is normal as well and a sed rate is showing a downward trend patient did have MRI of the lumbosacral spine did show overall improvement in his discitis, indicating his low back pain is more likely mechanical and needs more aggressive pain management Plan: 1-patient to continue with cefazolin 2 g every 6 hours to finish his 6 week c ourse of therapy 2-weekly monitoring of CBC BMP and a sed rate 3-more aggressively pain management per admitting team and outpatient physical therapy was discussed with the patient Time with Patient: Less than 30
== END 2019-01-28 14:55 | disposition home or self-care (01) | DRG 552 ==
LOC: EC 21:42 → 1SOBS 01-24 00:25 → OBSVTOIN 01-24 06:16 → 4MS4W 01-27 17:29 → 1SOBS 01-27 17:34
PROVIDERS: ADMIT Internal Medicine; ATTEND Internal Medicine
DX: M51.17 Intervertebral disc disorders with radiculopathy, lumbosacral region (principal); M48.07 Spinal stenosis, lumbosacral region; I10 Essential (primary) hypertension; I25.10 Atherosclerotic heart disease of native coronary artery without angina pectoris; E78.5 Hyperlipidemia, unspecified; E11.9 Type 2 diabetes mellitus without complications; K21.9 Gastro-esophageal reflux disease without esophagitis; Z87.442 Personal history of urinary calculi; Z90.49 Acquired absence of other specified parts of digestive tract; Z88.1 Allergy status to other antibiotic agents; Z79.899 Other long term (current) drug therapy; Z86.14 Personal history of Methicillin resistant Staphylococcus aureus infection; Z86.19 Personal history of other infectious and parasitic diseases; Z95.828 Presence of other vascular implants and grafts; Z79.4 Long term (current) use of insulin; Z87.891 Personal history of nicotine dependence; Z79.02 Long term (current) use of antithrombotics/antiplatelets; Z82.49 Family history of ischemic heart disease and other diseases of the circulatory system; Z83.3 Family history of diabetes mellitus; Z80.1 Family history of malignant neoplasm of trachea, bronchus and lung
CPT/HCPCS: 36415; 72133; 72158; 80048; 80053; 82550; 83036; 83605; 85025; 85610; 85652; 85730; 86140; 87040; 96374; 96376; 99284

== ENCOUNTER 2019-02-01 21:58 | Observation (INO) | payer BC ==
[2019-02-01] MEDS ORDERED: HYDROmorphone 0.5 MG/0.5 ML SYRINGE IVP STA (23:18)
[2019-02-01 23:37] LABS: Basophils # (A) 0.1 k/uL (0-0.2); Basophils % (A) 2 %; Eosinophils # (A) 0.5 k/uL (0-0.7); Eosinophils % (A) 7 %; HCT 36.9 % (39.0-53.0); HGB 12.4 gm/dL (13.0-17.5); Lymphocytes # (A) 1.3 k/uL (1.0-4.8); Lymphocytes % (A) 20 %; MCH 27.9 pg (25.0-35.0); MCHC 33.5 g/dL (31.0-37.0); MCV 83.4 fL (80.0-100.0); Mean Platelet Volume 6.8; Monocytes # (A) 0.5 k/uL (0-1.0); Monocytes % (A) 7 %; Neutrophils # (A) 3.9 k/uL (1.3-7.7); Neutrophils % (A) 61 %; Platelet Count 282 k/uL (150-450); RBC 4.42 m/uL (4.30-5.90); RDW 14.4 % (11.5-15.5); WBC 6.5 k/uL (3.8-10.6)
[2019-02-01 23:49] LABS: ALT 15 U/L (21-72); AST 17 U/L (17-59); Albumin 4.3 g/dL (3.5-5.0); Alkaline Phosphatase 80 U/L (38-126); Anion Gap 8 mmol/L; Blood Urea Nitrogen 15 mg/dL (9-20); Calcium 9.7 mg/dL (8.4-10.2); Carbon Dioxide 28 mmol/L (22-30); Chloride 98 mmol/L (98-107); Glucose 323 mg/dL (74-99); Magnesium 1.6 mg/dL (1.6-2.3); Potassium 3.9 mmol/L (3.5-5.1); Sodium 134 mmol/L (137-145); Total Bilirubin 0.8 mg/dL (0.2-1.3); Total Protein 7.1 g/dL (6.3-8.2)
[2019-02-01 23:50] LABS: C Reactive Protein <5.0 mg/L (<10.0)
[2019-02-02 00:24] LABS: Erythrocyte Sedimentation Rate 23 mm/hr (0-15)
[2019-02-02] MEDS ORDERED: ACETAMINOPHEN TAB 325 MG TAB PO PRN (00:52)
[2019-02-02] MEDS ORDERED: NALOXONE 0.4 MG/ML 1 ML VIAL IV PRN (00:52)
--- NOTE | 2019-02-02 00:57 | ED ---
Back Pain HPI - General Chief Complaint: Back Pain/Injury Stated Complaint: Infection, Back Pain Time Seen by Provider: 02/01/19 22:54 Source: patient Limitations: no limitations - History of Present Illness Initial Comments: Is a 48-year-old male with a history of osteomyelitis of the lumbar spine currently on treatment through a PICC who presents emergency department for wors ening of his back pain. The patient was seen recently in the hospital and had an MRI which was showing improvement in his osteomyelitis however there is persistent and flexion there. He is being followed by Dr. Chappell and Dr. Pitt regarding his osteomyelitis. He states that the pain now is radiating more cephalad and also radiating into his buttock. He denies any bowel or bladder incontinence. No numbness, Ros[place], or weakness in the extremity. He states he's been taking Percocet without improvement in his pain. He states that he has been talking with his neurosurgeon about this as well who is concerned that the infection may require surgery at some point. Patient admits to subjective fevers at home however no objective fevers. No other acute complaints. - Related Data Home Medications Medication Instructions Recorded Confirmed Atorvastatin [Lipitor] 80 mg PO HS 11/11/18 02/01/19 Insulin NPH/Reg Insulin 70/30 20 units SQ BID 01/05/19 02/01/19 [humuLIN 70/30 VIAL] amLODIPine [Norvasc] 5 mg PO DAILY 01/05/19 02/01/19 glipiZIDE [Glucotrol] 10 mg PO BID 01/05/19 02/01/19 Triamterene-Hctz 37.5-25Mg 1 tab PO DAILY 01/23/19 02/01/19 [Maxzide 37.5-25] oxyCODONE-APAP 10-325MG [Percocet 1 tab PO Q8H 01/23/19 02/01/19 10-325 mg] Previous Rx's Medication Instructions Recorded Carvedilol [Coreg*] 25 mg PO BID-W/MEALS #60 tab 11/12/18 Nitroglycerin Sl Tabs [Nitrostat] 0.4 mg SUBLINGUAL Q5M PRN #25 tab 11/12/18 Prasugrel [Effient] 10 mg PO DAILY #30 tab 11/12/18 hydrALAZINE HCL [Apresoline] 50 mg PO BID #60 tab 02/05/19 metFORMIN HCL [Glucophage] 1,000 mg PO AC-BID #0 11/12/18 ceFAZolin [Kefzol] 2 gm IVP Q8HR #126 vial 01/07/19 Allergies Allergy/AdvReac Type Severity Reaction Status Date / Time vancomycin Allergy ARACELIS Verified 02/01/19 22:12 Review of Systems ROS Statement: Those systems with pertinent positive or pertinent negative responses have been documented in the HPI. ROS Other: All systems not noted in ROS Statement are negative. Past Medical History Past Medical History: Chest Pain / Angina, Diabetes Mellitus, GERD/Reflux, Hypertension, Syncope Additional Past Medical History / Comment(s): NIDDM type II, hiatal hernia, nephrolithiasis, chronic low back pain, bilateral leg numbness, R great toe diabetic foot ulcer, past left olecranon bursitis, osteomyelitis in L4-L5 w/current treatment via PICC line History of Any Multi-Drug Resistant Organisms: MRSA Date of last positivie culture/infection: 12/21/16 MDRO Source:: Left axilla Past Surgical History: Appendectomy, Cholecystectomy, Heart Catheterization, Orthopedic Surgery Additional Past Surgical History / Comment(s): RENAL ANGIOGRAM 2005 for HTN, cardiac cath 2005, LT WRIST TENDON REPAIR 2013, RT ROTATOR CUFF REPAIR, bilateral knee arthroscopies, I&D L axillae. [address] Ha in December of 2018 Past Anesthesia/Blood Transfusion Reactions: No Reported Reaction Past Psychological History: No Psychological Hx Reported Smoking Status: Former smoker Past Alcohol Use History: None Reported Past Drug Use History: None Reported - Past Family History Father Family Medical History: Coronary Artery Disease (CAD), Diabetes Mellitus, Hypertension Additional Family Medical History / Comment(s): pt. reports his father had a four vessel CABG Mother Family Medical History: Cancer, Hypertension Additional Family Medical History / Comment(s): LUNG CANCER(NON SMOKER) General Exam - General Exam Comments Initial Comments: Constitutional: Awake alert Appears comfortable Head: Normocephalic atraumatic Eyes: no conjunctival injection No scleral icterus EOMI Neck: No JVD Supple Heart: Regular rate rhythm normal S1-S2 no murmurs Lungs: Clear to auscultation bilaterally No wheezing No rales Abdomen: Soft nondistended nontender Extremities: Non edematous DP pulses intact Radial pulses intact, 5 out of 5 strength in bilateral lower [place] with plantar flexion and dorsiflexion, sensation intact to light touch in all extremities Back: Patient has tenderness to the right lateral lumbar area and right buttock region. Neuro: A&Ox3 No focal neurologic deficits Psych: Appropriate mood and affect Limitations: no limitations Course Vital Signs 02/01/19 02/01/19 02/02/19 22:00 23:36 00:42 Temperature 98 F Pulse Rate 83 72 68 Respiratory 20 16 16 Rate Blood Pressure 171/111 148/98 145/96 O2 Sat by Pulse 100 97 98 Oximetry Medical Decision Making - Medical Decision Making Is a 48-year-old male who came in for worsening of the lower back pain. Patient was improved after given IV analgesics emergency department. ESR is still elevated however seems to be remaining steady. No focal neurologic deficits at this time. I spoke with Dr. larson. The patient and stated that he would see him in observation tomorrow to reevaluate him. The patient was updated and agrees with plan. - Lab Data Result diagrams: 02/01/19 23:27 02/01/19 23:27 Lab Results 02/01/19 02/01/19 Range/Units 23:27 23:27 WBC 6.5 (3.8-10.6) k/uL RBC 4.42 (4.30-5.90) m/uL Hgb 12.4 L (13.0-17.5) gm/dL Hct 36.9 L (39.0-53.0) % MCV 83.4 (80.0-100.0) fL MCH 27.9 (25.0-35.0) pg MCHC 33.5 (31.0-37.0) g/dL RDW 14.4 (11.5-15.5) % Plt Count 282 (150-450) k/uL Neutrophils % 61 % Lymphocytes % 20 % Monocytes % 7 % Eosinophils % 7 % Basophils % 2 % Neutrophils # 3.9 (1.3-7.7) k/uL Lymphocytes # 1.3 (1.0-4.8) k/uL Monocytes # 0.5 (0-1.0) k/uL Eosinophils # 0.5 (0-0.7) k/uL Basophils # 0.1 (0-0.2) k/uL ESR 23 H (0-15) mm/hr Sodium 134 L (137-145) mmol/L Potassium 3.9 (3.5-5.1) mmol/L Chloride 98 (98-107) mmol/L Carbon Dioxide 28 (22-30) mmol/L Anion Gap 8 mmol/L BUN 15 (9-20) mg/dL Creatinine 0.83 (0.66-1.25) mg/dL Est GFR (CKD-EPI)AfAm >90 (>60 ml/min/1.73 sqM) Est GFR (CKD-EPI)NonAf >90 (>60 ml/min/1.73 sqM) Glucose 323 H (74-99) mg/dL Calcium 9.7 (8.4-10.2) mg/dL Magnesium 1.6 (1.6-2.3) mg/dL Total Bilirubin 0.8 (0.2-1.3) mg/dL AST 17 (17-59) U/L ALT 15 L (21-72) U/L Alkaline Phosphatase 80 (38-126) U/L C-Reactive Protein <5.0 (<10.0) mg/L Total Protein 7.1 (6.3-8.2) g/dL Albumin 4.3 (3.5-5.0) g/dL Disposition Clinical Impression: Intractable back pain, Osteomyelitis Disposition: ADMITTED IP TO THIS [facility] Condition: Stable Referrals: Anuel Peters MD [Primary Care Provider] - 1-2 days
[2019-02-02] MEDS ORDERED: GABAPENTIN 100 MG CAP PO STA (01:09)
[2019-02-02] MEDS: MORPHINE SULFATE 4 MG/ML SYRINGE IV PRN ×4 (04:04→20:36)
[2019-02-02 06:37] LABS: Glucose,Whole Blood 208 mg/dL (75-99)
[2019-02-02] MEDS: oxyCODONE-APAP 10-325MG 1 EACH TAB PO SCH ×3 (08:38→23:59)
[2019-02-02] MEDS ORDERED: NITROGLYCERIN SL TABS 0.4 MG TAB SUBLINGUAL PRN (09:22)
[2019-02-02] MEDS: CARVEDILOL 12.5 MG TAB PO SCH ×2 (09:55→18:02)
[2019-02-02] MEDS: amLODIPine 5 MG TAB PO SCH (09:55)
[2019-02-02] MEDS: INSULN ASP PRT/INSULIN ASPART 100 UNIT/ML 10 ML VIAL SQ SCH ×2 (09:56→22:19)
[2019-02-02] MEDS: LIDOCAINE 5% PATCH TOPICAL SCH (10:50)
[2019-02-02] MEDS: glipiZIDE 10 MG TAB PO SCH ×2 (10:51→17:58)
[2019-02-02] MEDS: PRASUGREL 10 MG TAB PO SCH (10:51)
[2019-02-02] MEDS: TRIAMTERENE-HCTZ 37.5-25MG 1 EACH TAB PO SCH (10:51)
[2019-02-02] MEDS: hydrALAZINE HCL 50 MG TAB PO SCH ×2 (10:51→22:20)
--- NOTE | 2019-02-02 10:52 | P.HPIM ---
History of Present Illness Chief Complaint: Back pain This is a 48-year-old gentleman with a past medical history significant for possible colitis of the lumbar spine who is receiving antibiotics and the PICC line in the left forearm comes in with above-mentioned complaint. The patient was recently admitted for similar complaints about 5 days ago. At that time he had an MRI of the spine done which showed improvement in the enhancement pattern of the ostomy colitis. Patient was seen by infectious disease and orthopedic surgery who recommended to continue antibiotics. Patient says that he went home and since that time he's feeling that the pain is worsening. He says that he's not able to bring down and his legs feel sore just by walking small distances. The patient also says that his face feels that some fire. He otherwise does not complain of any chest pain racing heart no cough no shortness breath, no abdominal pain, no nausea and vomiting, no diarrhea but says that he is constipated because of the pain medication. He doesn't complain of any itch or rash. According to the ER he was complaining of pain radiating up the spine and also to his buttocks. He says that he has been following with his neurosurgeon for his chronic back issues. ER course patient's vitals were stable. Labwork was done which showed WBC 6.5 hemoglobin 12.4 sodium 134 potassium 3.9 BU and 15 creatinine 0.83 GFR more than 90. Patient was continued on his IV antibiotics and admitted to the hospitalist service a further evaluation and management. Review of Systems All systems: negative Past Medical History Past Medical History: Chest Pain / Angina, Diabetes Mellitus, GERD/Reflux, Hypertension, Syncope Additional Past Medical History / Comment(s): NIDDM type II, hiatal hernia, nephrolithiasis, chronic low back pain, bilateral leg numbness, R great toe diabetic foot ulcer, past left olecranon bursitis, osteomyelitis in L4-L5 w/cur rent treatment via PICC line History of Any Multi-Drug Resistant Organisms: MRSA Date of last positivie culture/infection: 12/21/16 MDRO Source:: Left axilla Past Surgical History: Appendectomy, Cholecystectomy, Heart Catheterization, Orthopedic Surgery Additional Past Surgical History / Comment(s): RENAL ANGIOGRAM 2005 for HTN, cardiac cath 2005, LT WRIST TENDON REPAIR 2013, RT ROTATOR CUFF REPAIR, bilateral knee arthroscopies, I&D L axillae. [address] Ha in December of 2018 Past Anesthesia/Blood Transfusion Reactions: No Reported Reaction Past Psychological History: No Psychological Hx Reported Additional Psychological History / Comment(s): Pt resides with his spouse and 3 children. 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 He resumed smoking in 2014 and is a 1.5ppd smoker. Pt states that he quit smoking in December 2018. Past Drug Use History: None Reported - Past Family History Father Family Medical History: Coronary Artery Disease (CAD), Diabetes Mellitus, Hypertension Additional Family Medical History / Comment(s): pt. reports his father had a four vessel CABG Mother Family Medical History: Cancer, Hypertension Additional Family Medical History / Comment(s): LUNG CANCER(NON SMOKER) Medications and Allergies Home Medications Medication Instructions Recorded Confirmed Type Atorvastatin [Lipitor] 80 mg PO HS 11/11/18 02/01/19 History Carvedilol [Coreg*] 25 mg PO BID-W/MEALS #60 tab 11/12/18 02/01/19 Rx Nitroglycerin Sl Tabs [Nitrostat] 0.4 mg SUBLINGUAL Q5M PRN #25 tab 11/12/18 02/01/19 Rx Prasugrel [Effient] 10 mg PO DAILY #30 tab 11/12/18 02/01/19 Rx hydrALAZINE HCL [Apresoline] 50 mg PO BID #60 tab 11/12/18 02/01/19 Rx metFORMIN HCL [Glucophage] 1,000 mg PO AC-BID #0 11/12/18 02/01/19 Rx Insulin NPH/Reg Insulin 70/30 20 units SQ BID 01/05/19 02/01/19 History [humuLIN 70/30 VIAL] amLODIPine [Norvasc] 5 mg PO DAILY 01/05/19 02/01/19 History glipiZIDE [Glucotrol] 10 mg PO BID 01/05/19 02/01/19 History ceFAZolin [Kefzol] 2 gm IVP Q8HR #126 vial 01/07/19 02/01/19 Rx Triamterene-Hctz 37.5-25Mg 1 tab PO DAILY 01/23/19 02/01/19 History [Maxzide 37.5-25] oxyCODONE-APAP 10-325MG [Percocet 1 tab PO Q8H 01/23/19 02/01/19 History 10-325 mg] Allergies Allergy/AdvReac Type Severity Reaction Status Date / Time vancomycin Allergy ARACELIS Verified 02/01/19 22:12 Physical Exam Vitals: Vital Signs Temp Pulse Pulse Pulse Resp BP BP 02/02/19 08:00 98.5 F 70 18 02/02/19 04:54 98.0 F 17 02/02/19 03:12 17 02/02/19 01:52 98.1 F 83 17 170/98 02/02/19 01:11 98.1 F 83 17 170/98 02/02/19 00:42 68 16 145/96 02/01/19 23:36 72 16 148/98 02/01/19 22:00 98 F 83 20 171/111 BP Pulse Ox 02/02/19 08:00 160/91 97 02/02/19 04:54 169/95 02/02/19 03:12 02/02/19 01:52 99 02/02/19 01:11 02/02/19 00:42 98 02/01/19 23:36 97 02/01/19 22:00 100 Intake and Output 02/01/19 02/02/19 02/02/19 22:59 06:59 14:59 Output Total 350 Balance -350 Output: Urine 350 Other: Voiding Method Urinal # Voids 1 Weight 102.058 kg On exam, alert and oriented x3. HEENT: Conjunctivae normal. eyes normal. NECK: No JVD. No thyroid enlargement. No LNs CARDIOVASCULAR: S1, S2 muffled. No murmur RESPIRATION: Breath sounds diminished in the bases. No rhonchi or crackles. No bronchial breathing. ABDOMEN: Soft, nontender . No guarding. no masses palpable. No ascites, No hepatosplenomegaly.Bowel sounds heard. LEGS: No edema. no swelling MUSCULOSKELETON : Patient is having tenderness in the lumbar spine. He is able to move his legs but is complaining of pain in his back when he lifts his bilateral lower extremities NERVOUS SYSTEM: Cranial N 2-12 grossly normal. Moves all 4 limbs. No focal deficits. No sensory deficit. No signs of cerebellar dysfucntion. Skin: no ulcer no rash Joints: No active swelling. No inflammation. Lymphatic system. No LN neck axilla or groin. Results CBC & Chem 7: 02/01/19 23:27 02/01/19 23:27 Labs: Abnormal Lab Results - Last 24 Hours (Table) 02/01/19 02/01/19 02/02/19 Range/Units 23:27 23: 06:36 Hgb 12.4 L (13.0-17.5) gm/dL Hct 36.9 L (39.0-53.0) % ESR 23 H (0-15) mm/hr Sodium 134 L (137-145) mmol/L Glucose 323 H (74-99) mg/dL POC Glucose (mg/dL) 208 H (75-99) mg/dL ALT 15 L (21-72) U/L Thrombosis Risk Factor Assmnt - Choose All That Apply Each Factor Represents 1 point: Obesity (BMI >25) Other Risk Factors: No Other congenital or acquired thrombophilia - If yes, enter type in comment: No Thrombosis Risk Factor Assessment Total Risk Factor Score: 1 Thrombosis Risk Factor Assessment Level: Low Risk Assessment and Plan Assessment: - Ongoing back pain getting worse as per patient - History of recent diagnosis of osteomyelitis of lumbar spine on IV antibiotics through PICC line - History of type 2 diabetes mellitus - History of GERD - He of CAD - History of chronic low back pain patient follows up with the neurosurgeon - History of diabetic foot ulcer right greater toe Plan - We will admit the patient to observation - We'll continue the IV antibiotics as per ID recommendations from before - The patient is complaining of worsening pain since he was discharged a few days ago. At that time MRI was done which showed improvement in the enhancement suggesting improvement in the osteomyelitis. We'll consult infectious disease f or the recommendations regarding this - We'll continue pain control with morphine and Percocet. We'll also put him on Lidoderm patch - We'll continue rest of the home medications - DVT and GI prophylaxis - We'll order for lab work in the morning - Patient is full code Time with Patient: Greater than 30
[2019-02-02 11:53] LABS: Glucose,Whole Blood 217 mg/dL (75-99)
[2019-02-02] MEDS: ceFAZolin IN SWFI 2 GM/20 ML SYRINGE IVP SCH (15:14)
[2019-02-02 16:48] LABS: Glucose,Whole Blood 234 mg/dL (75-99)
[2019-02-02] MEDS: metFORMIN 500 MG TAB PO SCH (17:58)
[2019-02-02 20:16] LABS: Glucose,Whole Blood 413 mg/dL (75-99)
[2019-02-02] MEDS: ATORVASTATIN 80 MG TAB PO SCH (20:37)
--- NOTE | 2019-02-02 23:32 | CONS ---
CONSULTATION HISTORY OF PRESENT ILLNESS: The patient is a 48-year-old male with past medical history significant for L4-L5 diskitis. For which the patient is currently getting cefazolin 2 g q.8 hours. The patient was admitted about a week ago to this facility with intractable lower back pain that was investigated further with an MRI of the lumbosacral spine which did show overall improvement in his diskitis finding. The patient was afebrile during the admission. His cultures were negative and the patient did have improvement in his white count as well as sedimentation rate. Hence the patient was discharged home to continue with cefazolin 2 g to finish a 6 week course of therapy and was advised more pain management for his chronic back pain. The patient said that he did well for the next few days and his pain was controllable. However the patient went outside to and then went to [employer] for shopping at the end. The patient started having more pain in the lower back area and apparently slept on the sofa all night with excruciating low back pain almost 10 out of 10, with some radiation to the right leg. Denies having any weakness, no bowel or bladder problems. The patient denies having any fever or chills. With these symptoms, the patient did present to the [facility] ER where the patient has been evaluated by the ER physician. The patient remains to be afebrile. The patient white count has been normal at 6.5. Sedimentation rate is down to 23 and a CRP less than 5. The patient subsequently has been admitted to the hospital for management of his pain. Infectious disease was consulted for further recommendations. REVIEW OF SYSTEMS: Positive points have been mentioned in HPI. Rest of the review of systems were negative. PAST MEDICAL HISTORY: Diabetes mellitus, gastroesophageal reflux disease, hypertension, syncope, L4-L5 diskitis, right great toe diabetic foot ulcer, left bursitis, MRSA infection. PAST SURGICAL HISTORY: Appendectomy, cholecystectomy, heart catheterization, orthopedic surgery, bilateral knee arthroscopy, I&D of the . SOCIAL HISTORY: Remote history of smoking. No drinking or drug use. FAMILY HISTORY: Father with history of coronary artery disease, diabetes mellitus, with history of lung cancer and hypertension. ALLERGIES: ALLERGIES TO VANCOMYCIN. MEDICATIONS: The patient is currently on cefazolin 2 g q.8 hours, Mag oxide, oxycodone, Nitrostat, Narcan, morphine sulfate, Glucophage, Lidoderm, NovoLog, hydralazine, Glucotrol, Coreg, Lipitor, Norvasc, . PHYSICAL EXAMINATION: Blood pressure is 128/69 with a pulse of 79, temperature 97.9. He is 98% on room air. General description is a middle-aged male lying in bed in no distress. No tachypnea or accessory muscle of respiration use. HEENT: Shows no pallor or scleral icterus. Oral mucosal membranes are dry. No pharyngeal erythema or thrush. NECK: Trachea central. No thyromegaly. LUNGS unlabored breathing, clear to auscultation. No wheeze or crackle. CARDIOVASCULAR: Heart S1, S2. Regular rate and rhythm, no abnormal sounds. ABDOMEN: Soft, no tenderness. No guarding or rigidity. EXTREMITIES: No edema of the feet. SKIN examination: No rashes. No mass palpable. NEUROLOGICAL: The patient is awake, alert, oriented x3. Mood and affect normal. LABS: White count 6.5. Sedimentation rate is 23. Did show significant improvement from initial high of 87. CRP less than 0.5. DIAGNOSTIC IMPRESSION AND PLAN: Patient admitted to the hospital with intractable low back pain in this patient who did have a history for diskitis. However on biochemical marker, the patient did have overall improvement in his inflammatory markers and he did have MRI of the lumbosacral spine completed about 5 days ago, which did show overall improvement in diskitis picture with his back pain, more likely mechanical rather than to any infectious etiology. PLAN: 1. We recommend keeping the patient on cefazolin 2 g q8 hours to which the patient has responded as well as inflammatory markers are concerned with CRP normal, ESR almost normalized and did have an MRI improvement a few days ago. 2. Patient needs more stronger pain management to control his pain. 3. We will follow up on his clinical condition and continue to keep the patient on Cefazolin for another 2 weeks to finish a 6 week course of therapy. All his questions and concerns were answered. MMODL / IJN: [id number] /
[2019-02-03] MEDS: MORPHINE SULFATE 4 MG/ML SYRINGE IV PRN ×6 (00:40→23:44)
[2019-02-03 06:53] LABS: Glucose,Whole Blood 147 mg/dL (75-99)
[2019-02-03 07:54] LABS: HCT 39.1 % (39.0-53.0); HGB 12.9 gm/dL (13.0-17.5); MCH 27.3 pg (25.0-35.0); MCV 82.9 fL (80.0-100.0); Mean Platelet Volume 7.1; Platelet Count 290 k/uL (150-450); RBC 4.72 m/uL (4.30-5.90); RDW 14.5 % (11.5-15.5); WBC 6.6 k/uL (3.8-10.6)
[2019-02-03 08:02] LABS: Anion Gap 10 mmol/L; Blood Urea Nitrogen 15 mg/dL (9-20); Calcium 9.8 mg/dL (8.4-10.2); Carbon Dioxide 30 mmol/L (22-30); Chloride 101 mmol/L (98-107); Glucose 160 mg/dL (74-99); Potassium 3.6 mmol/L (3.5-5.1); Sodium 141 mmol/L (137-145)
[2019-02-03] MEDS: INSULN ASP PRT/INSULIN ASPART 100 UNIT/ML 10 ML VIAL SQ SCH ×2 (08:17→20:37)
[2019-02-03] MEDS: LIDOCAINE 5% PATCH TOPICAL SCH (08:17)
[2019-02-03] MEDS: ceFAZolin IN SWFI 2 GM/20 ML SYRINGE IVP SCH ×4 (08:18→23:29)
[2019-02-03] MEDS: glipiZIDE 10 MG TAB PO SCH ×2 (08:18→16:45)
[2019-02-03] MEDS: hydrALAZINE HCL 50 MG TAB PO SCH ×2 (08:18→20:38)
[2019-02-03] MEDS: metFORMIN 500 MG TAB PO SCH ×2 (08:18→16:45)
[2019-02-03] MEDS: TRIAMTERENE-HCTZ 37.5-25MG 1 EACH TAB PO SCH (08:18)
[2019-02-03] MEDS: oxyCODONE-APAP 10-325MG 1 EACH TAB PO SCH (08:19)
[2019-02-03] MEDS: PRASUGREL 10 MG TAB PO SCH (08:19)
[2019-02-03] MEDS: CARVEDILOL 12.5 MG TAB PO SCH ×2 (08:20→16:45)
[2019-02-03] MEDS: amLODIPine 5 MG TAB PO SCH (09:22)
[2019-02-03 11:57] LABS: Glucose,Whole Blood 255 mg/dL (75-99)
[2019-02-03] MEDS ORDERED: POLYETHYLENE GLYCOL 3350 17 GM POWD.PACK PO PRN (13:53)
[2019-02-03] MEDS: KETOROLAC 30 MG/ML 1 ML VIAL IVP PRN (14:06)
[2019-02-03] MEDS: SENNOSIDES-DOCUSATE SODIUM 1 EACH TAB PO SCH ×2 (14:07→20:38)
[2019-02-03] MEDS: FAMOTIDINE 20 MG TAB PO SCH ×2 (14:07→20:38)
--- NOTE | 2019-02-03 14:57 | P.PN ---
Subjective 48-year-old male was admitted for severe back pain patient has history of discitis for which patient is on ceftezole and repeat MRI and after the com pletion of antibiotic did not show any significant improvement because of which antibiotics are still being continued as recommended by infectious disease. Patient is having severe pain not on any anti-inflammatory medications patient will be started on Toradol pain management to be consulted continue the rest of the medication patient is constipated by of because of opiates and we'll use and MiraLAX for that. Constitutional: Denied any fatigue denied any fever. Cardio vascular: denied any chest pain, palpitations Gastrointestinal denied any nausea vomiting Pulmonary: Denied any shortness of breath cough Neurologic denied any new focal deficits All inpatient medications were reviewed and appropriate changes in these medications as dictated in the interval history and assessment and plan. Objective - Vital Signs Vital signs: Vital Signs Temp 98.1 F 02/03/19 07:30 Pulse 66 02/03/19 12:00 Resp 18 02/03/19 12:00 BP 158/95 02/03/19 07:30 Pulse Ox 98 02/03/19 07:30 Intake & Output 02/02/19 02/03/19 02/03/19 18:59 06:59 18:59 Intake Total 358 Balance 358 Intake: Oral 358 Other: Voiding Method Urinal Urinal Urinal # Voids 1 - Exam PHYSICAL EXAMINATION: GENERAL: The patient is alert and oriented x3, not in any acute distress. Well developed, well nourished. HEENT: Pupils are round and equally reacting to light. EOMI. No scleral icterus. No conjunctival pallor. Normocephalic, atraumatic. No pharyngeal erythema. No thyromegaly. CARDIOVASCULAR: S1 and S2 present. No murmurs, rubs, or gallops. PULMONARY: Chest is clear to auscultation, no wheezing or crackles. ABDOMEN: Soft, nontender, nondistended, normoactive bowel sounds. No palpable organomegaly. MUSCULOSKELETAL: No joint swelling or deformity. EXTREMITIES: No cyanosis, clubbing, or pedal edema. NEUROLOGICAL: Gross neurological examination did not reveal any focal deficits. SKIN: No rashes. - Labs CBC & Chem 7: 02/03/19 07:30 02/03/19 07:30 Labs: Abnormal Lab Results - Last 24 Hours (Table) 02/02/19 02/02/1902/03/19 Range/Units 16:45 20:14 06:51 Hgb (13.0-17.5) gm/dL Glucose (74-99) mg/dL POC Glucose (mg/dL) 234 H 413 H 147 H (75-99) mg/dL 02/03/19 02/03/19 02/03/19 Range/Units 07:30 07:30 11:54 Hgb 12.9 L (13.0-17.5) gm/dL Glucose 160 H (74-99) mg/dL POC Glucose (mg/dL) 255 H (75-99) mg/dL Microbiology - Last 24 Hours (Table) 02/01/19 23:27 Blood Culture - Preliminary Blood No Growth after 24 hours Assessment and Plan Plan: -back pain and severe: Secondary to discitis continue with antibiotics pain management as mentioned above that Toradol to his pain regimen.GI prophylaxis physical therapy and outpatient consultation -Type 2 diabetes mellitus -Gastroesophageal reflux disease -Coronary artery disease -Diabetic foot ulcer doesn't appear to be infected at this time -hypertension For above-mentioned chronic medical problems patient will be continued on appropriate home medications since patient doesn't move much patient will need pharmacologic DVT prophylaxis
[2019-02-03] MEDS ORDERED: HYDROmorphone 2 MG TAB PO PRN (15:27)
--- NOTE | 2019-02-03 15:40 | P.CON ---
Consult Note - . Consult date: 02/03/19 Assessment/Plan:: This is a 48-year-old gentleman with history of lower back pain due to osteomyelitis in the posterior elements of L4 and L5 that have been improving with IV antibiotics through a PICC line ,however recently the patient started to have increasing lower back pain with suspicion of a relapse of his infection. The patient states that Percocet 10 mg 3 times a day is not helping his pain. I saw the patient in the observation unit today. He is alert oriented 3 no apparent distress. He states that he just received IV morphine. He denies any bowel or bladder dysfunction but he does feel some weakness in his legs. Muscle strength exam in the lower extremities was normal however the patient has increasing lower back pain during the muscle strength exam. The patient could not move in bed so I can inspect his back. Diagnoses: Lumbar spine osteomyelitis in the posterior elements of L4 and L5, however his last CRP was within normal limits Recommendations: Continue IV antibiotics Discontinue Percocet start Dilaudid by mouth 4 mg every 8 hours when necessary pain Continue IV morphine as needed for severe uncontrolled pain If Dilaudid works for him then he should contact his pain physician for an outpatient prescription I thank you for the consultation
[2019-02-03] MEDS ORDERED: HYDROmorphone 2 MG TAB PO SCH (16:00)
[2019-02-03] MEDS: HYDROmorphone 2 MG TAB PO PRN ×2 (16:45→23:30)
[2019-02-03 16:47] LABS: Glucose,Whole Blood 201 mg/dL (75-99)
--- NOTE | 2019-02-03 17:47 | PN ---
PROGRESS NOTE DATE OF SERVICE: 02/03/2019. REASON FOR FOLLOWUP: L4-5 diskitis. INTERVAL HISTORY: The patient is currently afebrile. Patient's pain is currently controlled with pain medication, feeling slightly better. Denies any chest pain, shortness of breath or cough. No abdominal pain. No diarrhea. PHYSICAL EXAMINATION: Blood pressure 131/95 with a pulse of 64, temperature 98.4, he is 97% on room air. General description is a middle-aged male lying in bed in no distress. Respiratory system: Unlabored breathing. Clear to auscultation anteriorly. Heart S1, S2. Regular rate and rhythm. Abdomen soft, no tenderness. LABS: Hemoglobin is 12.8, white count 6.7, BUN of 15, creatinine 0.82. DIAGNOSTIC IMPRESSION AND PLAN: Patient with L4-5 diskitis who has been admitted to the hospital with intractable back pain more likely mechanical as the patient recently did have a MRI of the lumbosacral spine which showed overall improvement. CRP is normal that has shown normal trend to continue with cefazolin 2 g q.8h to finish 6 week course of therapy and/or stronger pain management and physical therapy in outpatient setting. All his questions and concerns were answered. MMODL / IJN: [id number] /
[2019-02-03 20:26] LABS: Glucose,Whole Blood 207 mg/dL (75-99)
[2019-02-03] MEDS: ATORVASTATIN 80 MG TAB PO SCH (20:37)
[2019-02-04 00:10] VITALS: RESP 16
[2019-02-04] MEDS: MORPHINE SULFATE 4 MG/ML SYRINGE IV PRN ×3 (03:09→12:34)
[2019-02-04] MEDS: HYDROmorphone 2 MG TAB PO PRN ×2 (06:33→15:12)
[2019-02-04 06:48] LABS: Glucose,Whole Blood 119 mg/dL (75-99)
[2019-02-04] MEDS: ceFAZolin IN SWFI 2 GM/20 ML SYRINGE IVP SCH (08:36)
[2019-02-04] MEDS: LIDOCAINE 5% PATCH TOPICAL SCH (08:36)
[2019-02-04] MEDS: metFORMIN 500 MG TAB PO SCH (08:37)
[2019-02-04] MEDS: glipiZIDE 10 MG TAB PO SCH (08:37)
[2019-02-04] MEDS: INSULN ASP PRT/INSULIN ASPART 100 UNIT/ML 10 ML VIAL SQ SCH (08:37)
[2019-02-04] MEDS: SENNOSIDES-DOCUSATE SODIUM 1 EACH TAB PO SCH (08:37)
[2019-02-04] MEDS: PRASUGREL 10 MG TAB PO SCH (08:38)
[2019-02-04] MEDS: hydrALAZINE HCL 50 MG TAB PO SCH (08:38)
[2019-02-04] MEDS: amLODIPine 5 MG TAB PO SCH (08:38)
[2019-02-04] MEDS: CARVEDILOL 12.5 MG TAB PO SCH (08:38)
[2019-02-04] MEDS: TRIAMTERENE-HCTZ 37.5-25MG 1 EACH TAB PO SCH (08:38)
[2019-02-04] MEDS: FAMOTIDINE 20 MG TAB PO SCH (08:38)
[2019-02-04 08:45] VITALS: BP 146/84; PULSE 65; TEMP 98.5
[2019-02-04] MEDS: KETOROLAC 30 MG/ML 1 ML VIAL IVP PRN (09:50)
[2019-02-04 11:44] LABS: Glucose,Whole Blood 182 mg/dL (75-99)
--- NOTE | 2019-02-04 13:13 | PN ---
PROGRESS NOTE DATE OF SERVICE: 02/04/2019. REASON FOR FOLLOWUP: L4-5 diskitis. INTERVAL HISTORY: The patient is currently afebrile, has been breathing comfortably. The patient's low back pain is currently more controlled with adjustment in his pain medication. No nausea, no vomiting and no diarrhea. PHYSICAL EXAMINATION: Blood pressure 146/84 with a pulse of 65, temperature 98.5. He is 97% on room air. GENERAL DESCRIPTION: A middle-aged male, lying in bed in no distress. RESPIRATORY SYSTEM: Unlabored breathing, clear to auscultation anteriorly. HEART: S1, S2. Regular rate and rhythm. distant muscle. LABS: No new labs have been obtained today. Blood culture this admission has been negative. DIAGNOSTIC IMPRESSION AND PLAN: Patient admitted to the hospital with intractable low back pain. The patient did have a history of L4-5 diskitis with recent MRI did show overall improvement. CRP normal. Sedimentation rate has come down more likely mechanical. Apparently the patient's pain is improving with adjustment. His pain medication to continue per admitting physician. He will continue for further into the acute finish 6-week course of therapy. Continue supportive care. MMODL / IJN: [id number] /
--- NOTE | 2019-02-04 13:57 | P.DS ---
Providers Date of admission: 02/02/19 00:53 Attending physician: Benny Eddy MD Consults: 02/02/19 10:18 Consult Physician Routine Consulting Provider: Ta Chappell Consult Reason/Comments: osteomyelitis Do you want consulting provider notified?: Yes Primary care physician: Fran De Leon [facility] Course: 48-year-old male was admitted for severe back pain patient has history of discitis for which patient is on ceftezole and repeat MRI and after the completion of antibiotic did not show any significant improvement because of which antibiotics are still being continued as recommended by infectious disease. Patient is having severe pain not on any anti-inflammatory medications patient will be started on Toradol pain management to be consulted continue the rest of the medication patient is constipated by of because of opiates and we'll use and MiraLAX for that. 02/04/2019 Patient is still having back pain pain management service evaluated the patient. Physical therapy and occupational therapy valid the patient patient did well. Patient will be discharged on by mouth pain medications as recommended by pain management services 7 with awaiting the recommendations. Patient will be di scharged on bowel regimen as well patient did not move his bowels today. Patient will continue his antibiotic therapy for 6 weeks for his discitis. PHYSICAL EXAMINATION: GENERAL: The patient is alert and oriented x3, not in any acute distress. Well developed, well nourished. HEENT: Pupils are round and equally reacting to light. EOMI. No scleral icterus. No conjunctival pallor. Normocephalic, atraumatic. No pharyngeal erythema. No thyromegaly. CARDIOVASCULAR: S1 and S2 present. No murmurs, rubs, or gallops. PULMONARY: Chest is clear to auscultation, no wheezing or crackles. ABDOMEN: Soft, nontender, nondistended, normoactive bowel sounds. No palpable organomegaly. MUSCULOSKELETAL: No joint swelling or deformity. EXTREMITIES: No cyanosis, clubbing, or pedal edema. NEUROLOGICAL: Gross neurological examination did not reveal any focal deficits. SKIN: No rashes. Assessment and Plan Plan: -back pain and severe: Secondary to discitis continue with antibiotics, patient is still requiring quite a bit of pain medications opiates along with nonsteroidal anti-inflammatories. -Type 2 diabetes mellitus -Gastroesophageal reflux disease -Coronary artery disease -Diabetic foot ulcer doesn't appear to be infected at this time -hypertension Patient Condition at Discharge: Stable Plan - Discharge Summary New Discharge Prescriptions: No Action Atorvastatin [Lipitor] 80 mg PO HS Carvedilol [Coreg*] 25 mg PO BID-W/MEALS #60 tab hydrALAZINE HCL [Apresoline] 50 mg PO BID #60 tab Nitroglycerin Sl Tabs [Nitrostat] 0.4 mg SUBLINGUAL Q5M PRN #25 tab PRN Reason: Chest Pain Prasugrel [Effient] 10 mg PO DAILY #30 tab metFORMIN HCL [Glucophage] 1,000 mg PO AC-BID #0 glipiZIDE [Glucotrol] 10 mg PO BID Insulin NPH/Reg Insulin 70/30 [humuLIN 70/30 VIAL] 20 units SQ BID amLODIPine [Norvasc] 5 mg PO DAILY ceFAZolin [Kefzol] 2 gm IVP Q8HR #126 vial oxyCODONE-APAP 10-325MG [Percocet 10-325 mg] 1 tab PO Q8H Triamterene-Hctz 37.5-25Mg [Maxzide 37.5-25] 1 tab PO DAILY Discharge Medication List Atorvastatin [Lipitor] 80 mg PO HS 11/11/18 [History] Carvedilol [Coreg*] 25 mg PO BID-W/MEALS #60 tab 11/12/18 [Rx] Nitroglycerin Sl Tabs [Nitrostat] 0.4 mg SUBLINGUAL Q5M PRN #25 tab 11/12/18 [Rx] Prasugrel [Effient] 10 mg PO DAILY #30 tab 11/12/18 [Rx] hydrALAZINE HCL [Apresoline] 50 mg PO BID #60 tab 11/12/18 [Rx] metFORMIN HCL [Glucophage] 1,000 mg PO AC-BID #0 11/12/18 [Rx] Insulin NPH/Reg Insulin 70/30 [humuLIN 70/30 VIAL] 20 units SQ BID 01/05/19 [History] amLODIPine [Norvasc] 5 mg PO DAILY 01/05/19 [History] glipiZIDE [Glucotrol] 10 mg PO BID 01/05/19 [History] ceFAZolin [Kefzol] 2 gm IVP Q8HR #126 vial 01/07/19 [Rx] Triamterene-Hctz 37.5-25Mg [Maxzide 37.5-25] 1 tab PO DAILY 01/23/19 [History] oxyCODONE-APAP 10-325MG [Percocet 10-325 mg] 1 tab PO Q8H 01/23/19 [History] Follow up Appointment(s)/Referral(s): Anuel Peters MD [Primary Care Provider] - 1-2 days
--- NOTE | 2019-02-04 15:22 | P.PN ---
Progress Note - Text Progress Note Date: 02/04/19 This is 48 years old male, with a history of osteomyelitis, who was maintained on chronic pain medication Percocet 10/325 every 6 hours is getting prescription refills from his neurologist Dr. Leggett , during his hospitalization course with change in his pain medication to Dilaudid 4 mg every 8 hours, as his pain was not controlled with the Percocet 10/325, she reported that he feels that the new medication helped him more, and his pain improved, I recommend to discharge patient on Dilaudid 4 mg every 8 hours orally when necessary ,and patient will follow up with his pain physician Dr. Leggett as an outpatient
== END 2019-02-04 15:50 | disposition home health service (06) ==
LOC: EC 21:58 → 1SOBS 02-02 00:53
PROVIDERS: ADMIT Internal Medicine; ATTEND Internal Medicine
DX: M46.46 Discitis, unspecified, lumbar region (principal); E11.621 Type 2 diabetes mellitus with foot ulcer; K21.9 Gastro-esophageal reflux disease without esophagitis; I10 Essential (primary) hypertension; K59.00 Constipation, unspecified; Z87.442 Personal history of urinary calculi; Z87.891 Personal history of nicotine dependence; Z86.14 Personal history of Methicillin resistant Staphylococcus aureus infection; Z90.49 Acquired absence of other specified parts of digestive tract; Z79.899 Other long term (current) drug therapy; Z79.4 Long term (current) use of insulin; Z79.02 Long term (current) use of antithrombotics/antiplatelets; Z80.1 Family history of malignant neoplasm of trachea, bronchus and lung; Z83.3 Family history of diabetes mellitus; Z82.49 Family history of ischemic heart disease and other diseases of the circulatory system; Z88.1 Allergy status to other antibiotic agents
CPT/HCPCS: 96375 ×2; 96376 ×3; 96374; 99285; 36415; 97162; 80053; 80048; 85652; 83735; 85025; 85027; 86140; 87040; G0378 ×3; J2270 ×3; J1885 ×2; J1170; J0690 ×3

== ENCOUNTER 2019-02-08 17:15 | Inpatient (IN) | payer BC ==
[2019-02-08] MEDS ORDERED: SODIUM CHLORIDE 0.9% 1,000 ML IV STA (18:18)
[2019-02-08] MEDS ORDERED: KETOROLAC 30 MG/ML 1 ML VIAL IVP STA (18:18)
[2019-02-08] MEDS ORDERED: HYDROmorphone 1 MG/ML 1 ML SYRINGE IVP STA (18:19)
--- NOTE | 2019-02-08 18:37 | ED ---
Back Pain HPI - General Chief Complaint: Back Pain/Injury Stated Complaint: Back pain Time Seen by Provider: 02/08/19 17:26 Source: patient, RN notes reviewed, old records reviewed Limitations: no limitations - History of Present Illness Initial Comments: Patient is a 48-year-old male with history of discitis over his L4-L5 area. Patient reports he is treated with IV antibiotics through PICC line. He's been admitted to the hospital multiple times for the past month for intractable pain. Patient states that he was discharged last week on oral Dilaudid. Patient states he hasn't been taking anti-inflammatory medicine as often as directed because the visiting nurse stated it would make his blood thin. Patient states that he called his pain management doctor after being discharged with by mouth Dilaudid for refill and Dr. Leggett was not willing to refill this medication for him. Patient states the Percocet seemed to manage his pain is much as by mouth Dilaudid. Patient reports that over the past few days the pain becoming worse and he feels like his back is popping and cracking. He reports the pain radiates down his right leg and his right leg will give out on him and he is had 3 frequent falls. Patient denies any saddle anesthesias. He reports chills off and on. Patient states he is upset that he is continue have pain and feels like his symptoms have worsened rather than getting better. - Related Data Home Medications Medication Instructions Recorded Confirmed Atorvastatin [Lipitor] 80 mg PO HS 11/11/18 02/08/19 Insulin NPH/Reg Insulin 70/30 20 units SQ BID 01/05/19 02/08/19 [humuLIN 70/30 VIAL] amLODIPine [Norvasc] 5 mg PO DAILY 01/05/19 02/08/19 glipiZIDE [Glucotrol] 10 mg PO BID 01/05/19 02/08/19 Triamterene-Hctz 37.5-25Mg 1 tab PO DAILY 01/23/19 02/08/19 [Maxzide 37.5-25] Previous Rx's Medication Instructions Recorded Carvedilol [Coreg*] 25 mg PO BID-W/MEALS #60 tab 11/12/18 Nitroglycerin Sl Tabs [Nitrostat] 0.4 mg SUBLINGUAL Q5M PRN #25 tab 11/12/18 Prasugrel [Effient] 10 mg PO DAILY #30 tab 11/12/18 hydrALAZINE HCL [Apresoline] 50 mg PO BID #60 tab 11/12/18 metFORMIN HCL [Glucophage] 1,000 mg PO AC-BID #0 11/12/18 ceFAZolin [Kefzol] 2 gm IVP Q8HR #126 vial 01/07/19 Potassium Chloride ER [K-Dur 20] 20 meq PO DAILY #30 tab 02/04/19 Sennosides-Docusate Sodium 1 tab PO BID #20 tablet 02/04/19 [Senokot-S] Allergies Allergy/AdvReac Type Severity Reaction Status Date / Time vancomycin Allergy ARACELIS Verified 02/08/19 18:23 Review of Systems ROS Statement: Those systems with pertinent positive or pertinent negative responses have been documented in the HPI. ROS Other: All systems not noted in ROS Statement are negative. Past Medical History Past Medical History: Chest Pain / Angina, Diabetes Mellitus, GERD/Reflux, Hypertension, Syncope Additional Past Medical History / Comment(s): NIDDM type II, hiatal hernia, nephrolithiasis, chronic low back pain, bilateral leg numbness, R great toe diabetic foot ulcer, past left olecranon bursitis, osteomyelitis in L4-L5 w/current treatment via PICC line History of Any Multi-Drug Resistant Organisms: MRSA Date of last positivie culture/infection: 12/21/16 MDRO Source:: Left axilla Past Surgical History: Appendectomy, Cholecystectomy, Heart Catheterization, Orthopedic Surgery Additional Past Surgical History / Comment(s): RENAL ANGIOGRAM 2005 for HTN, cardiac cath 2005, LT WRIST TENDON REPAIR 2013, RT ROTATOR CUFF REPAIR, bilateral knee arthroscopies, I&D L axillae. [address] Ha in December of 2018 Past Anesthesia/Blood Transfusion Reactions: No Reported Reaction Past Psychological History: No Psychological Hx Reported Smoking Status: Former smoker Past Alcohol Use History: None Reported Past Drug Use History: None Reported - Past Family History Father Family Medical History: Coronary Artery Disease (CAD), Diabetes Mellitus, Hypertension Additional Family Medical History / Comment(s): pt. reports his father had a four vessel CABG Mother Family Medical History: Cancer, Hypertension Additional Family Medical History / Comment(s): LUNG CANCER(NON SMOKER) General Exam - General Exam Comments Initial Comments: This is a 48-year-old male. Alert and oriented 3. No significant distress. Limitations: no limitations General appearance: alert, in no apparent distress Head exam: Present: atraumatic, normocephalic, normal inspection ENT exam: Present: normal exam, mucous membranes moist Neck exam: Present: normal inspection. Absent: tenderness, meningismus, lymphadenopathy Respiratory exam: Present: normal lung sounds bilaterally. Absent: respiratory distress, wheezes, rales, rhonchi, stridor Cardiovascular Exam: Present: regular rate, normal rhythm, normal heart sounds. Absent: systolic murmur, diastolic murmur, rubs, gallop, clicks GI/Abdominal exam: Present: soft, normal bowel sounds. Absent: distended, te nderness, guarding, rebound, rigid Extremities exam: Present: normal inspection, full ROM, normal capillary refill. Absent: tenderness, pedal edema, joint swelling, calf tenderness Back exam: Present: normal inspection, tenderness (Patient has lower lumbar spinal tenderness. Spasming over the left and right paraspinal muscles.), other (Patient has tenderness over the right sciatic notch.) Neurological exam: Present: alert, oriented X3, CN II-XII intact Psychiatric exam: Present: normal affect, normal mood Skin exam: Present: warm, dry, intact, normal color. Absent: rash Course Vital Signs 02/08/19 02/08/19 17:17 19:34 Temperature 98.1 F 98.9 F Pulse Rate 73 66 Respiratory 18 15 Rate Blood Pressure 140/101 139/89 O2 Sat by Pulse 99 99 Oximetry Medical Decision Making - Medical Decision Making 48-year-old male with history of discitis, on through PICC line presents today with worsening back pain. He's been admitted multiple times for intractable pain. Patient was discharged recently on oral Dilaudid and states this is not helping his pain is well. Patient does note that he hasn't been taking his anti-inflammatory medicine. The emergency department he does mention multiple times that when he was admitted previously some nurses have been diluting his dilaudid giving him a full dose at that time. He states that this makes her up set. He does state that he does not want to be addicted to pain medication but wants to have further answers to why his pain seems to be getting worse rather than better. I reviewed his MRI 2 weeks ago. It does show improvement (At time. Patient was given IV fluids labwork obtained. White blood cell count is within normal limits. He is given a dose of IV Dilaudid and Toradol doesn't seem be resting comfortably bed at this time. Patient is concerned for discharge home and states that he feels like there is needs to be more done. I discussed we could admit the Patient for observation for intractable pain and consult his physicians. - Lab Data Result diagrams: 02/08/19 18:34 02/08/19 18:34 Lab Results 02/08/19 02/08/19 02/08/19 Range/Units 18:34 18:34 18:34 WBC 7.0 (3.8-10.6) k/uL RBC 4.44 (4.30-5.90) m/uL Hgb 12.3 L (13.0-17.5) gm/dL Hct 36.8 L (39.0-53.0) % MCV 82.9 (80.0-100.0) fL MCH 27.7 (25.0-35.0) pg MCHC 33.4 (31.0-37.0) g/dL RDW 14.1 (11.5-15.5) % Plt Count 276 (150-450) k/uL Neutrophils % 63 % Lymphocytes % 20 % Monocytes % 7 % Eosinophils % 5 % Basophils % 2 % Neutrophils # 4.4 (1.3-7.7) k/uL Lymphocytes # 1.4 (1.0-4.8) k/uL Monocytes # 0.5 (0-1.0) k/uL Eosinophils # 0.4 (0-0.7) k/uL Basophils # 0.1 (0-0.2) k/uL Sodium 139 (137-145) mmol/L Potassium 4.0 (3.5-5.1) mmol/L Chloride 103 (98-107) mmol/L Carbon Dioxide 25 (22-30) mmol/L Anion Gap 11 mmol/L BUN 17 (9-20) mg/dL Creatinine 0.91 (0.66-1.25) mg/dL Est GFR (CKD-EPI)AfAm >90 (>60 ml/min/1.73 sqM) Est GFR (CKD-EPI)NonAf >90 (>60 ml/min/1.73 sqM) Glucose 224 H (74-99) mg/dL Calcium 9.9 (8.4-10.2) mg/dL Total Bilirubin 0.6 (0.2-1.3) mg/dL AST 20 (17-59) U/L ALT 14 L (21-72) U/L Alkaline Phosphatase 62 (38-126) U/L C-Reactive Protein <5.0 (<10.0) mg/L Total Protein 7.1 (6.3-8.2) g/dL Albumin 4.5 (3.5-5.0) g/dL Urine Color Light Yellow Urine Appearance Clear (Clear) Urine pH 5.5 (5.0-8.0) Ur Specific [place] 1.011 (1.001-1.035) Urine Protein Trace H (Negative) Urine Glucose (UA) Negative (Negative) Urine Ketones Negative (Negative) Urine Blood Negative (Negative) Urine Nitrite Negative (Negative) Urine Bilirubin Negative (Negative) Urine Urobilinogen <2.0 (<2.0) mg/dL Ur Leukocyte Esterase Negative (Negative) Disposition Clinical Impression: Osteomyelitis of lumbar spine, Intractable low back pain Disposition: ADMITTED IP TO THIS [facility] Condition: Stable Is patient prescribed a controlled substance at d/c from ED?: No Referrals: Anuel Peters MD [Primary Care Provider] - 1-2 days Time of Disposition: 20:05
[2019-02-08 18:55] LABS: Appearance,Urine Clear (Clear); Basophils # (A) 0.1 k/uL (0-0.2); Basophils % (A) 2 %; Bilirubin,Urine Negative (Negative); Blood,Urine Negative (Negative); Color,Urine Light Yellow; Eosinophils # (A) 0.4 k/uL (0-0.7); Eosinophils % (A) 5 %; Glucose,Urine (UA) Negative (Negative); HCT 36.8 % (39.0-53.0); HGB 12.3 gm/dL (13.0-17.5); Ketones,Urine Negative (Negative); Leukocyte Esterase,Urine Negative (Negative); Lymphocytes # (A) 1.4 k/uL (1.0-4.8); Lymphocytes % (A) 20 %; MCH 27.7 pg (25.0-35.0); MCHC 33.4 g/dL (31.0-37.0); MCV 82.9 fL (80.0-100.0); Mean Platelet Volume 7.1; Monocytes # (A) 0.5 k/uL (0-1.0); Monocytes % (A) 7 %; Neutrophils # (A) 4.4 k/uL (1.3-7.7); Neutrophils % (A) 63 %; Nitrite,Urine Negative (Negative); PH, Urine 5.5 (5.0-8.0); Platelet Count 276 k/uL (150-450); Protein,Urine Trace (Negative); RBC 4.44 m/uL (4.30-5.90); RDW 14.1 % (11.5-15.5); Specific Gravity,Urine 1.011 (1.001-1.035); Urobilinogen,Urine <2.0 mg/dL (<2.0)
[2019-02-08 19:08] LABS: ALT 14 U/L (21-72); AST 20 U/L (17-59); Albumin 4.5 g/dL (3.5-5.0); Alkaline Phosphatase 62 U/L (38-126); Anion Gap 11 mmol/L; Blood Urea Nitrogen 17 mg/dL (9-20); Calcium 9.9 mg/dL (8.4-10.2); Carbon Dioxide 25 mmol/L (22-30); Chloride 103 mmol/L (98-107); Glucose 224 mg/dL (74-99); Sodium 139 mmol/L (137-145); Total Bilirubin 0.6 mg/dL (0.2-1.3); Total Protein 7.1 g/dL (6.3-8.2)
[2019-02-08 19:42] LABS: C Reactive Protein <5.0 mg/L (<10.0)
[2019-02-08] MEDS ORDERED: NALOXONE 0.4 MG/ML 1 ML VIAL IV PRN (20:05)
[2019-02-08 21:07] LABS: Glucose,Whole Blood 209 mg/dL (75-99)
[2019-02-08] MEDS: HYDROmorphone 1 MG/ML 1 ML SYRINGE IVP PRN (21:43)
[2019-02-08] MEDS: ATORVASTATIN 80 MG TAB PO SCH (22:47)
[2019-02-08] MEDS: metFORMIN 500 MG TAB PO SCH (22:47)
[2019-02-08] MEDS: glipiZIDE 10 MG TAB PO SCH (22:47)
[2019-02-08] MEDS: hydrALAZINE HCL 50 MG TAB PO SCH (22:47)
[2019-02-08] MEDS: CARVEDILOL 12.5 MG TAB PO SCH (22:47)
[2019-02-08] MEDS: INSULN ASP PRT/INSULIN ASPART 100 UNIT/ML 10 ML VIAL SQ SCH (22:48)
[2019-02-08] MEDS: KETOROLAC 30 MG/ML 1 ML VIAL IVP PRN (22:48)
[2019-02-08] MEDS: SODIUM CHLORIDE 0.9% 1,000 ML IV SCH (22:50)
[2019-02-08] MEDS: ceFAZolin IN SWFI 2 GM/20 ML SYRINGE IVP SCH (23:07)
[2019-02-09] MEDS: HYDROmorphone 1 MG/ML 1 ML SYRINGE IVP PRN ×7 (01:16→21:28)
[2019-02-09 04:51] LABS: Glucose,Whole Blood 41 mg/dL (75-99)
[2019-02-09 05:09] LABS: Glucose,Whole Blood 44 mg/dL (75-99)
[2019-02-09] MEDS: KETOROLAC 30 MG/ML 1 ML VIAL IVP PRN ×2 (05:27→22:36)
[2019-02-09 05:42] LABS: Glucose,Whole Blood 59 mg/dL (75-99)
[2019-02-09 06:10] LABS: Glucose,Whole Blood 89 mg/dL (75-99)
[2019-02-09 06:55] LABS: Glucose,Whole Blood 151 mg/dL (75-99)
[2019-02-09] MEDS: ceFAZolin IN SWFI 2 GM/20 ML SYRINGE IVP SCH ×3 (06:57→20:01)
[2019-02-09] MEDS: INSULN ASP PRT/INSULIN ASPART 100 UNIT/ML 10 ML VIAL SQ SCH ×2 (08:26→20:00)
[2019-02-09] MEDS: amLODIPine 5 MG TAB PO SCH (08:26)
[2019-02-09] MEDS: TRIAMTERENE-HCTZ 37.5-25MG 1 EACH TAB PO SCH (08:26)
[2019-02-09] MEDS: PRASUGREL 10 MG TAB PO SCH (08:26)
[2019-02-09] MEDS: SENNOSIDES-DOCUSATE SODIUM 1 EACH TAB PO SCH ×2 (08:26→20:00)
[2019-02-09] MEDS: glipiZIDE 10 MG TAB PO SCH ×2 (08:26→20:00)
[2019-02-09] MEDS: POTASSIUM CHLORIDE ER 20 MEQ TAB.ER PO SCH (08:26)
[2019-02-09] MEDS: hydrALAZINE HCL 50 MG TAB PO SCH ×2 (08:26→19:59)
[2019-02-09] MEDS: metFORMIN 500 MG TAB PO SCH ×2 (08:26→18:00)
[2019-02-09] MEDS: CARVEDILOL 12.5 MG TAB PO SCH ×2 (08:26→18:00)
[2019-02-09] MEDS: ONDANSETRON 4 MG/2 ML VIAL IVP PRN ×2 (08:32→16:53)
[2019-02-09 11:33] LABS: Glucose,Whole Blood 225 mg/dL (75-99)
--- NOTE | 2019-02-09 13:56 | P.HPIM ---
History of Present Illness H&P Date: 02/09/19 Chief Complaint: Intractable back pain 48-year-old male with history of discitis over his L4-L5 area. Patient reports he is treated with IV antibiotics through PICC line. He's been admitted to the hospital multiple times for the past month for intractable pain. Patient states that he was discharged last week on oral Dilaudid. Patient states he hasn't been taking anti-inflammatory medicine as often as directed because the visiting nurse stated it would make his blood thin. Patient states that he called his pain management doctor after being discharged with by mouth Dilaudid for refill and Dr. Leggett was not willing to refill this medication for him. Patient states the Percocet seemed to manage his pain is much as by mouth Dilaudid. Patient reports that over the past few days the pain becoming worse and he feels like his back is popping and cracking. He reports the pain radiates down his right leg and his right leg will give out on him and he is had 3 frequent falls. Patient denies any saddle anesthesias. He reports chills off and on. Patient states he is upset that he is continue have pain and feels like his symptoms have worsened rather than getting rachelle Past Medical History Past Medical History: Chest Pain / Angina, Diabetes Mellitus, GERD/Reflux, Hypertension, Syncope Additional Past Medical History / Comment(s): NIDDM type II, hiatal hernia, nephrolithiasis, chronic low back pain, bilateral leg numbness, R great toe diabetic foot ulcer, past left olecranon bursitis, osteomyelitis in L4-L5 w/current treatment via PICC line History of Any Multi-Drug Resistant Organisms: MRSA Date of last positivie culture/infection: 12/21/16 MDRO Source:: Left axilla Past Surgical History: Appendectomy, Cholecystectomy, Heart Catheterization, Orthopedic Surgery Additional Past Surgical History / Comment(s): RENAL ANGIOGRAM 2006 for HTN, cardiac cath 2005, LT WRIST TENDON REPAIR 2013, RT ROTATOR CUFF REPAIR, bilateral knee arthroscopies, I&D L axillae. [address] Ha in December of 2018 Past Anesthesia/Blood Transfusion Reactions: No Reported Reaction Past Psychological History: No Psychological Hx Reported Smoking Status: Former smoker Past Alcohol Use History: None Reported Additional Past Alcohol Use History / Comment(s): Pt started smoking in 1989 and quit in 2008. He resumed smoking in 2014 and is a 1.5ppd smoker. Pt states that he quit smoking in December 2018. Past Drug Use History: None Reported - Past Family History Father Family Medical History: Coronary Artery Disease (CAD), Diabetes Mellitus, Hypertension Additional Family Medical History / Comment(s): pt. reports his father had a four vessel CABG Mother Family Medical History: Cancer, Hypertension Additional Family Medical History / Comment(s): LUNG CANCER(NON SMOKER) Medications and Allergies Home Medications Medication Instructions Recorded Confirmed Type Atorvastatin [Lipitor] 80 mg PO HS 11/11/18 02/08/19 History Carvedilol [Coreg*] 25 mg PO BID-W/MEALS #60 tab 11/12/18 02/08/19 Rx Nitroglycerin Sl Tabs [Nitrostat] 0.4 mg SUBLINGUAL Q5M PRN #25 tab 11/12/18 02/08/19 Rx Prasugrel [Effient] 10 mg PO DAILY #30 tab 11/12/18 02/08/19 Rx hydrALAZINE HCL [Apresoline] 50 mg PO BID #60 tab 11/12/18 02/08/19 Rx metFORMIN HCL [Glucophage] 1,000 mg PO AC-BID #0 11/12/18 02/08/19 Rx Insulin NPH/Reg Insulin 70/30 20 units SQ BID 01/05/19 02/08/19 History [humuLIN 70/30 VIAL] amLODIPine [Norvasc] 5 mg PO DAILY 01/05/19 02/08/19 History glipiZIDE [Glucotrol] 10 mg PO BID 01/05/19 02/08/19 History ceFAZolin [Kefzol] 2 gm IVP Q8HR #126 vial 01/07/19 02/08/19 Rx Triamterene-Hctz 37.5-25Mg 1 tab PO DAILY 01/23/19 02/08/19 History [Maxzide 37.5-25] Potassium Chloride ER [K-Dur 20] 20 meq PO DAILY #30 tab 02/04/19 02/08/19 Rx Sennosides-Docusate Sodium 1 tab PO BID #20 tablet 02/04/19 02/08/19 Rx [Senokot-S] Allergies Allergy/AdvReac Type Severity Reaction Status Date / Time vancomycin Allergy ARACELIS Verified 02/08/19 21:23 Physical Exam Vitals: Vital Signs Temp Pulse Pulse Resp BP BP Pulse Ox 02/09/19 07:35 97.6 F 64 16 144/89 99 02/09/19 03:41 16 02/09/19 00:00 16 02/08/19 23:28 98.5 F 71 16 127/77 94 L 02/08/19 21:07 97.6 F 74 18 172/90 99 02/08/19 20:47 98.3 F 67 16 135/81 100 02/08/19 19:34 98.9 F 66 15 139/89 99 02/08/19 17:17 98.1 F 73 18 140/101 99 Intake and Output 02/08/19 02/09/19 02/09/19 22:59 06:59 14:59 Other: Voiding Method Toilet Toilet # Voids 2 Weight 99.79 kg Limitations: no limitations General appearance: alert, in no apparent distress Head exam: Present: atraumatic, normocephalic, normal inspection ENT exam: Present: normal exam, mucous membranes moist Neck exam: Present: normal inspection. Absent: tenderness, meningismus, lymphadenopathy Respiratory exam: Present: normal lung sounds bilaterally. Absent: respiratory distress, wheezes, rales, rhonchi, stridor Cardiovascular Exam: Present: regular rate, normal rhythm, normal heart sounds. Absent: systolic murmur, diastolic murmur, rubs, gallop, clicks GI/Abdominal exam: Present: soft, normal bowel sounds. Absent: distended, tenderness, guarding, rebound, rigid Extremities exam: Present: normal inspection, full ROM, normal capillary refill. Absent: tenderness, pedal edema, joint swelling, calf tenderness Back exam: Present: normal inspection, tenderness (Patient has lower lumbar spinal tenderness. Spasming over the left and right paraspinal muscles.), other (Patient has tenderness over the right sciatic notch.) Neurological exam: Present: alert, oriented X3, CN II-XII intact Psychiatric exam: Present: normal affect, normal mood Skin exam: Present: warm, dry, intact, normal color. Absent: rash Results CBC & Chem 7: 02/08/19 18:34 02/08/19 18:34 Labs: Abnormal Lab Results - Last 24 Hours (Table) 02/08/19 02/08/1902/08/19 Range/Units 18:34 18:34 18:34 Hgb 12.3 L (13.0-17.5) gm/dL Hct 36.8 L (39.0-53.0) % Glucose 224 H (74-99) mg/dL POC Glucose (mg/dL) (75-99) mg/dL ALT 14 L (21-72) U/L Urine Protein Trace H (Negative) 02/08/19 02/09/19 02/09/19 Range/Units 21:05 04:40 05:07 Hgb (13.0-17.5) gm/dL Hct (39.0-53.0) % Glucose (74-99) mg/dL POC Glucose (mg/dL) 209 H 41 L 44 L (75-99) mg/dL ALT (21-72) U/L Urine Protein (Negative) 02/09/19 02/09/19 Range/Units 05:30 06:53 Hgb (13.0-17.5) gm/dL Hct (39.0-53.0) % Glucose (74-99) mg/dL POC Glucose (mg/dL) 59 L 151 H (75-99) mg/dL ALT (21-72) U/L Urine Protein (Negative) Thrombosis Risk Factor Assmnt - Choose All That Apply Any of the Below Risk Factors Present?: Yes Each Factor Represents 1 point: Age 41-60 years, Obesity (BMI >25) Other Risk Factors: No Other congenital or acquired thrombophilia - If yes, enter type in comment: No Thrombosis Risk Factor Assessment Total Risk Factor Score: 2 Thrombosis Risk Factor Assessment Level: Low Risk Assessment and Plan Assessment: 1. Intractable back pain - Patient was recently discharged home on oral Dilaudid and relates this is not helping control his pain well; patient has not been taking his anti-inflammatory medication claiming it causes major concerns with causing inflammation and stomach and he was informed by the visiting nurse that it has blood thinning effect; patient relates that he wants thorough evaluation by ID to provide him with some answers for his pain is getting progressively worse; patient did have an MRI done 2 weeks ago weight test show improvement - We will consult anesthesia service pain management; patient has been recommended on previous admissions for possible pain management as outpatient 2. Osteomyelitis of lumbar spine - Patient is on IV Ancef as an outpatient; follows up with ID - Patient had an follow-up MRI done about 2 weeks ago which did show improvement in osteomyelitis - We will reconsult ID for any possible further recommendations 3. Hypertension; reorder home medications amlodipine, Maxzide 4. Hyperlipidemia; Lipitor 80 mg by mouth daily at bedtime 5. Diabetes mellitus type 1; we will reorder home dose of insulin 7030 and glipizide; monitor Accu-Cheks before meals and at bedtime with insulin sliding scale CODE STATUS; full code Time with Patient: Greater than 30
[2019-02-09 17:01] LABS: Glucose,Whole Blood 114 mg/dL (75-99)
[2019-02-09] MEDS: ATORVASTATIN 80 MG TAB PO SCH (20:00)
[2019-02-09 20:04] LABS: Glucose,Whole Blood 146 mg/dL (75-99)
[2019-02-09] MEDS: SODIUM CHLORIDE 0.9% 1,000 ML IV SCH (21:17)
[2019-02-10] MEDS: HYDROmorphone 1 MG/ML 1 ML SYRINGE IVP PRN ×8 (00:37→22:15)
[2019-02-10] MEDS: KETOROLAC 30 MG/ML 1 ML VIAL IVP PRN ×3 (04:29→20:43)
[2019-02-10 07:00] LABS: Glucose,Whole Blood 71 mg/dL (75-99)
[2019-02-10] MEDS: ceFAZolin IN SWFI 2 GM/20 ML SYRINGE IVP SCH ×3 (07:53→23:36)
[2019-02-10] MEDS: glipiZIDE 10 MG TAB PO SCH ×2 (07:54→20:51)
[2019-02-10] MEDS: CARVEDILOL 12.5 MG TAB PO SCH ×2 (07:54→17:25)
[2019-02-10] MEDS: hydrALAZINE HCL 50 MG TAB PO SCH ×2 (07:54→20:34)
[2019-02-10] MEDS: POTASSIUM CHLORIDE ER 20 MEQ TAB.ER PO SCH (07:54)
[2019-02-10] MEDS: metFORMIN 500 MG TAB PO SCH ×2 (07:54→17:25)
[2019-02-10] MEDS: SENNOSIDES-DOCUSATE SODIUM 1 EACH TAB PO SCH ×2 (07:54→20:34)
[2019-02-10] MEDS: INSULN ASP PRT/INSULIN ASPART 100 UNIT/ML 10 ML VIAL SQ SCH ×2 (07:55→20:53)
[2019-02-10] MEDS: PRASUGREL 10 MG TAB PO SCH (07:55)
[2019-02-10] MEDS: TRIAMTERENE-HCTZ 37.5-25MG 1 EACH TAB PO SCH (07:55)
[2019-02-10] MEDS: amLODIPine 5 MG TAB PO SCH (07:55)
[2019-02-10 11:53] LABS: Glucose,Whole Blood 87 mg/dL (75-99)
[2019-02-10] MEDS: ONDANSETRON 4 MG/2 ML VIAL IVP PRN ×2 (12:30→20:43)
--- NOTE | 2019-02-10 13:59 | CONS ---
CONSULTATION DATE OF SERVICE: 02/10/2019 REASON FOR CONSULTATION: Lumbar diskitis. HISTORY OF PRESENT ILLNESS: The patient is a 48-year-old male, well known to my service and the patient did have an L5-S1 diskitis for which the patient is currently getting cefazolin 2 g q.8 hours since 01/05/2019. The patient did have admission to the hospital almost on a weekly basis for the last 3 weeks, about 2 weeks ago when he was admitted with intractable back pain. At that time, the patient did have a MRI of the lumbosacral spine repeated which did show overall improvement in his diskitis. The patient inflammatory markers continued to improve and the CRP is normal on this admission as well. Patient apparently did have increased activity; however, the last 2 days patient said he has went to the [employer] and has been having walking around for more than an hour or so, after which the patient having more pain in the lower back area, described to be sharp almost throbbing, 8/10 with some radiation to the right leg. The patient denies any bowel or bladder problems. Denies having any nausea, no vomiting. With these symptoms, the patient presented back to the hospital, patient admitted to the hospital for intractable back pain and pain management. Infectious Disease was consulted for further recommendation regarding antibiotic. The patient has been afebrile on presentation and remains to be afebrile. The patient's white count is normal and CRP was less than 0005 with less than 10 being normal, has been continue on cefazolin 2 g q.8 hour. REVIEW OF SYSTEMS: Positive per admission in HPI. Rest of the system negative. PAST MEDICAL HISTORY: Type 2 diabetes mellitus, conservative colitis, hypertension, syncope, L4-L5 diskitis, right big toe diabetic foot ulcer. PAST SURGICAL HISTORY: Appendectomy, cholecystectomy, heart catheterization, bilateral knee arthroscopy. SOCIAL HISTORY: Remote history of smoking, no drinking or drug use. FAMILY HISTORY: Father history of coronary artery disease and diabetes. Mother history of lung cancer and hypertension. ALLERGIES: To VANCOMYCIN. MEDICATION: Currently include the patient is on Norvasc, Lipitor, Coreg, cefazolin 2 g. q.8, Glucotrol, hydralazine, Dilaudid, NovoLog, Toradol, Glucophage, Narcan, Senokot. PHYSICAL EXAMINATION: Blood pressure is 149/82 with a pulse of 62, temperature 98.4. He is 99% on room air. General description is a middle-aged male, lying in bed in no distress. HEENT EXAMINATION: No scleral icterus. Mucous membranes moist. LUNGS: Unlabored breathing, clear to auscultation anteriorly. HEART: S1, S2. Regular rate and rhythm. ABDOMEN: Soft, no tenderness. EXTREMITIES: No edema of feet. SKIN EXAMINATION: No rash or mass palpable. NEUROLOGIC: The patient is awake, alert, oriented. Mood affect normal. LABS: Hemoglobin is 12.1, white count of 7.0 with a BUN of 17, creatinine 0.91, CRP is less than 5. DIAGNOSTIC IMPRESSION/PLAN: Patient admitted to the hospital with intractable back pain. This patient did have history of L4-5 diskitis, currently being treated with cefazolin. In view of overall improvement on MRI about 2 weeks ago in this patient remains to be normal, will make it to be less likely worsening of diskitis or worsening infection. The pain is more likely mechanical and need more aggressive pain management. PLAN: 1. Will keep the patient on cefazolin 2 g. to finish a 6-week course of therapy. 2. Pain management for admitting team. Thank you for this consultation. Will follow the patient in this hospital stay. MMODL / IJN: [id number] /
--- NOTE | 2019-02-10 15:52 | P.PAINCN ---
History of Present Illness - Reason for Consult Consult date: 02/10/19 - History of Present Illness This is 48 years old male, with a history of intractable pain secondary to osteomyelitis of the L4 5 levels, patient currently under treatment with IV antibiotics through the PICC line, and patient was managed as an outpatient with the oral pain medication Percocet 10/325 every 8 hours, he was discharged a few days ago from the hospital and he was given prescription for Dilaudid orally, that , neurologist was not willing to refill Dilaudid tablets for him , currently patient continued to have severe low back pain which is aggravated with any movement, the pain radiate to the lower extremity bilaterally, Past Medical History Past Medical History: Chest Pain / Angina, Diabetes Mellitus, GERD/Reflux, Hypertension, Syncope Additional Past Medical History / Comment(s): NIDDM type II, hiatal hernia, nephrolithiasis, chronic low back pain, bilateral leg numbness, R great toe diabetic foot ulcer, past left olecranon bursitis, osteomyelitis in L4-L5 w/current treatment via PICC line History of Any Multi-Drug Resistant Organisms: MRSA Year Discovered:: 12/21/16 MDRO Source:: Left axilla Past Surgical History: Appendectomy, Cholecystectomy, Heart Catheterization, Orthopedic Surgery Additional Past Surgical History / Comment(s): RENAL ANGIOGRAM 2005 for HTN, cardiac cath 2005, LT WRIST TENDON REPAIR 2013, RT ROTATOR CUFF REPAIR, bilateral knee arthroscopies, I&D L axillae. [address] Ha in December of 2018 Past Anesthesia/Blood Transfusion Reactions: No Reported Reaction Past Psychological History: No Psychological Hx Reported Smoking Status: Former smoker Past Alcohol Use History: None Reported Additional Past Alcohol Use History / Comment(s): Pt started smoking in 1989 and quit in 2008. He resumed smoking in 2014 and is a 1.5ppd smoker. Pt states that he quit smoking in December 2018. Past Drug Use History: None Reported - Past Family History Father Family Medical History: Coronary Artery Disease (CAD), Diabetes Mellitus, Hypertension Additional Family Medical History / Comment(s): pt. reports his father had a four vessel CABG Mother Family Medical History: Cancer, Hypertension Additional Family Medical History / Comment(s): LUNG CANCER(NON SMOKER) Medications and Allergies Home Medications Medication Instructions Recorded Confirmed Type Atorvastatin [Lipitor] 80 mg PO HS 11/11/18 02/08/19 History Carvedilol [Coreg*] 25 mg PO BID-W/MEALS #60 tab 11/12/18 02/08/19 Rx Nitroglycerin Sl Tabs [Nitrostat] 0.4 mg SUBLINGUAL Q5M PRN #25 tab 11/12/18 02/08/19 Rx Prasugrel [Effient] 10 mg PO DAILY #30 tab 11/12/18 02/08/19 Rx hydrALAZINE HCL [Apresoline] 50 mg PO BID #60 tab 11/12/18 02/08/19 Rx metFORMIN HCL [Glucophage] 1,000 mg PO AC-BID #0 11/12/18 02/08/19 Rx Insulin NPH/Reg Insulin 70/30 20 units SQ BID 01/05/19 02/08/19 History [humuLIN 70/30 VIAL] amLODIPine [Norvasc] 5 mg PO DAILY 01/05/19 02/08/19 History glipiZIDE [Glucotrol] 10 mg PO BID 01/05/19 02/08/19 History ceFAZolin [Kefzol] 2 gm IVP Q8HR #126 vial 01/07/19 02/08/19 Rx Triamterene-Hctz 37.5-25Mg 1 tab PO DAILY 01/23/19 02/08/19 History [Maxzide 37.5-25] Potassium Chloride ER [K-Dur 20] 20 meq PO DAILY #30 tab 02/04/19 02/08/19 Rx Sennosides-Docusate Sodium 1 tab PO BID #20 tablet 02/04/19 02/08/19 Rx [Senokot-S] Allergies Allergy/AdvReac Type Severity Reaction Status Date / Time vancomycin Allergy ARACELIS Verified 02/08/19 21:23 Physical Exam Vitals: Vital Signs Temp Pulse Resp BP Pulse Ox 02/10/19 15:43 97.9 F 69 18 164/97 99 02/10/19 07:38 98.4 F 60 18 149/82 99 02/10/19 03:19 16 02/09/19 23:47 98.5 F 61 16 130/77 97 02/09/19 23:06 61 17 02/09/19 19:26 16 02/09/19 15:49 98.7 F 62 135/86 98 Intake and Output 02/10/19 02/10/19 02/10/19 06:59 14:59 22:59 Intake Total 662 Balance 662 Intake: Oral 462 Other 200 Other: Voiding Method Toilet Toilet # Voids 1 Physical Examinations : -Constitutiona : Cooperative , not in acute distress . -HEENT : nech ; supple , no Lymphadenopathy , normal thyroid size . eyes : no ptosis , no icterus, no photophobia . - neurologic : Cranial nerve II to XII intact , no focal neurological deffecit . -psychatric : alert , oriented X 3 , appropriate affect , intact judgment and insight . - musculoskeltal : Lumber spine moter stegnth lower extremities ,thigh and legs 5/5 Right side , 5/5 Left side Results CBC & Chem 7: 02/08/19 18:34 02/08/19 18:34 Labs: Abnormal Lab Results - Last 24 Hours (Table) 02/09/19 02/09/19 02/10/19 Range/Units 16:49 19:56 06:46 POC Glucose (mg/dL) 114 H 146 H 71 L (75-99) mg/dL Assessment and Plan Plan: Assessment and plan= intractable back pain secondary to osteomyelitis, command continue unseated Toradol 30 mg every 6 hours. Recommend increasing the frequency of Percocet 10/325 2 every 6 hours, and will follow up later Time with Patient: Less than 30 PQRS Measure Charge Sheet PQRS Narrative: Smoking Status Former smoker Blood Pressure [Right Arm] 164/97 Blood Pressure 135/81 Pain Intensity [Lower Back] 7 Pain Intensity 8 Pain Scale Used Numeric (1 - 10) Scale Used Numeric (1 - 10) Home Medications: Ambulatory Orders Atorvastatin [Lipitor] 80 mg PO HS 11/11/18 Carvedilol [Coreg*] 25 mg PO BID-W/MEALS #60 tab 11/12/18 Nitroglycerin Sl Tabs [Nitrostat] 0.4 mg SUBLINGUAL Q5M PRN #25 tab 11/12/18 Prasugrel [Effient] 10 mg PO DAILY #30 tab 11/12/18 hydrALAZINE HCL [Apresoline] 50 mg PO BID #60 tab 11/12/18 metFORMIN HCL [Glucophage] 1,000 mg PO AC-BID #0 11/12/18 Insulin NPH/Reg Insulin 70/30 [humuLIN 70/30 VIAL] 20 units SQ BID 01/05/19 amLODIPine [Norvasc] 5 mg PO DAILY 01/05/19 glipiZIDE [Glucotrol] 10 mg PO BID 01/05/19 ceFAZolin [Kefzol] 2 gm IVP Q8HR #126 vial 01/07/19 Triamterene-Hctz 37.5-25Mg [Maxzide 37.5-25] 1 tab PO DAILY 01/23/19 Potassium Chloride ER [K-Dur 20] 20 meq PO DAILY #30 tab 02/04/19 Sennosides-Docusate Sodium [Senokot-S] 1 tab PO BID #20 tablet 02/04/19
[2019-02-10 16:29] LABS: Glucose,Whole Blood 101 mg/dL (75-99)
[2019-02-10] MEDS: INSULIN ASPART (NovoLOG) 100 UNIT/ML VIAL SQ SCH ×2 (16:29→20:53)
--- NOTE | 2019-02-10 18:56 | PN ---
PROGRESS NOTE DATE OF SERVICE: 02/10/2019 This 48-year-old gentleman who was admitted with severe back pain had recent L5-S1 diskitis. The patient is getting IV antibiotics. The patient had an MRI of the lumbosacral spine which showed overall improvement of the diskitis. The patient also was complaining of severe pain. The CRP is normal at this time. The patient is admitted for further evaluation and treatment. The patient is started on continued IV antibiotics as well as pain medications. Past medical history reviewed. The patient was given Dilaudid for pain last time, but because he was not getting pain relief, Dr. Leggett is following the pain management as outpatient. REVIEW OF SYSTEMS: CARDIOVASCULAR SYSTEM: No angina, palpitations. RESPIRATORY SYSTEM: As mentioned earlier. GI: As mentioned earlier. : No dysuria or retention. NERVOUS SYSTEM: No numbness, weakness. CURRENT MEDICATIONS: Reviewed. They include: 1. Norvasc 5 mg daily. 2. Lipitor 80 mg at bedtime. 3. Coreg 25 mg b.i.d. 4. Kefzol 2 grams IV q.8. 5. Glucotrol. 6. Apresoline 50 mg b.i.d. 7. Dilaudid p.r.n. 8. Toradol. 9. Glucophage. 10.Zofran. 11.Effient. 12.Maxzide. PHYSICAL EXAMINATION: Patient is alert and oriented x3. Pulse 60, blood pressure 149/82, respiration 18, temperature 98.4, pulse ox 99% on room air. HEENT: Conjunctivae normal. Oral mucosa moist. NECK: No jugular venous distention. No carotid bruit. No lymph node enlargement. CARDIOVASCULAR SYSTEM: S1, S2 muffled. RESPIRATORY SYSTEM: Breath sounds diminished at the bases. A few scattered rhonchi and crackles. ABDOMEN: Soft, non-tender. No mass palpable. LEGS: No edema. No swelling. NERVOUS SYSTEM: Higher functions as mentioned earlier. Moves all 4 limbs. No focal motor or sensory deficit. LYMPHATICS: No lymph node palpable in neck, axillae or groin. SKIN: No ulcer, rash, bleeding. JOINTS: No active deforming arthropathy. EXAMINATION OF THE BACK: Severe tenderness present. LABS: WBC 7, hemoglobin 12.3, glucose 209. ASSESSMENT: 1. Intractable back pain with failure of outpatient treatment. 2. Osteomyelitis of the lumbar spine with diskitis. 3. On IV antibiotics. 4. Hypertension. 5. Hyperlipidemia. 6. Diabetes mellitus, type 2. 7. History of gastroesophageal reflux disease. 8. History of syncope. 9. History of nephrolithiasis. 10.History of chronic back pain. 11.History of right great toe diabetic foot ulcer. 12.Olecranon bursitis. 13.PICC line. 14.Remote history of nicotine dependence. RECOMMENDATIONS AND DISCUSSION: In this 48-year-old gentleman who presented with multiple complex medical issues, we will monitor the patient closely, continue the current management. I recommend pain management consultation. The patient is on regular IV pain medication at this time. Continue the IV antibiotics. Will obtain the cultures, order ESR. Closely follow with Dr. Chappell. The patient also has seen Dr. Bob Dickey, neurosurgeon, as an outpatient. Patient was also seen by Orthopedic Surgery, Dr. Marcial, during one of his previous admissions. Overall the patient has had very little symptomatic improvement. I would recommend continuing the management. This patient will require further treatment and management as a full inpatient admission for further evaluation and treatment. The overall prognosis is guarded because of multiple complex medical issues. See orders for further details. Further recommendations to follow. MMODL / IJN: [id number] /
[2019-02-10] MEDS: SODIUM CHLORIDE 0.9% 1,000 ML IV SCH (19:34)
[2019-02-10] MEDS: ATORVASTATIN 80 MG TAB PO SCH (20:34)
[2019-02-10] MEDS: HEPARIN SODIUM,PORCINE 5,000 UNIT/ML 1 ML VIAL SQ SCH (20:34)
[2019-02-10 20:57] LABS: Glucose,Whole Blood 181 mg/dL (75-99)
[2019-02-11] MEDS: HYDROmorphone 1 MG/ML 1 ML SYRINGE IVP PRN ×5 (01:12→18:44)
--- NOTE | 2019-02-11 02:02 | PN ---
PROGRESS NOTE 02/10/2019. REASON FOR FOLLOWUP: L5/S1 diskitis. INTERVAL HISTORY: The patient is currently afebrile. The patient's back pain is slightly controlled with pain medication he has been receiving. Denies any worsening. Denies having any chest pain, shortness of breath or cough. No abdominal pain. No diarrhea. PHYSICAL EXAMINATION: Blood pressure 154/97 with a pulse of 69, temperature 97.9. He is 99% on room air. General description is a middle-aged male lying in bed in no distress. Respiratory system: Unlabored breathing. Clear to auscultation anteriorly. Heart S1, S2. Regular rate and rhythm. Abdomen soft. No tenderness. LABS: No new lab have been obtained today. DIAGNOSTIC IMPRESSION AND PLAN: Patient admitted to the hospital with intractable back pain in this patient who did have a history of L5-S1 diskitis for which the patient has been treated with IV cefazolin, scheduled to complete his 6 week course of therapy on February 19. Currently doubt any worsening diskitis clinically in this patient currently not running any fever or elevated white count. An MRI that was performed 2 weeks ago did show overall improvement. The patient's CRP is normal. will be checked for tomorrow. Patient needs more aggressive pain management. This was discussed with the admitting physician on the phone. MMODL / PAULN: [id number] /
[2019-02-11 06:18] LABS: Basophils # (A) 0.1 k/uL (0-0.2); Basophils % (A) 2 %; Eosinophils # (A) 0.3 k/uL (0-0.7); Eosinophils % (A) 8 %; HCT 33.9 % (39.0-53.0); HGB 11.2 gm/dL (13.0-17.5); Lymphocytes # (A) 0.9 k/uL (1.0-4.8); Lymphocytes % (A) 21 %; MCH 27.8 pg (25.0-35.0); MCV 84.4 fL (80.0-100.0); Mean Platelet Volume 7.3; Monocytes # (A) 0.2 k/uL (0-1.0); Monocytes % (A) 5 %; Neutrophils # (A) 2.6 k/uL (1.3-7.7); Neutrophils % (A) 61 %; Platelet Count 223 k/uL (150-450); RBC 4.02 m/uL (4.30-5.90); RDW 13.9 % (11.5-15.5); WBC 4.2 k/uL (3.8-10.6)
[2019-02-11 06:33] LABS: Blood Urea Nitrogen 17 mg/dL (9-20); Calcium 9.4 mg/dL (8.4-10.2); Carbon Dioxide 26 mmol/L (22-30); Glucose 144 mg/dL (74-99)
[2019-02-11 06:43] LABS: Anion Gap 8 mmol/L; Chloride 106 mmol/L (98-107); Potassium 4.1 mmol/L (3.5-5.1); Sodium 140 mmol/L (137-145)
[2019-02-11 06:50] LABS: Glucose,Whole Blood 140 mg/dL (75-99)
[2019-02-11] MEDS: ceFAZolin IN SWFI 2 GM/20 ML SYRINGE IVP SCH ×2 (07:29→15:24)
[2019-02-11] MEDS: hydrALAZINE HCL 50 MG TAB PO SCH (07:30)
[2019-02-11] MEDS: TRIAMTERENE-HCTZ 37.5-25MG 1 EACH TAB PO SCH (07:30)
[2019-02-11] MEDS: HEPARIN SODIUM,PORCINE 5,000 UNIT/ML 1 ML VIAL SQ SCH (07:30)
[2019-02-11] MEDS: PRASUGREL 10 MG TAB PO SCH (07:30)
[2019-02-11] MEDS: glipiZIDE 10 MG TAB PO SCH (07:30)
[2019-02-11] MEDS: POTASSIUM CHLORIDE ER 20 MEQ TAB.ER PO SCH (07:31)
[2019-02-11] MEDS: INSULIN ASPART (NovoLOG) 100 UNIT/ML VIAL SQ SCH ×3 (07:31→17:36)
[2019-02-11] MEDS: INSULN ASP PRT/INSULIN ASPART 100 UNIT/ML 10 ML VIAL SQ SCH (07:31)
[2019-02-11] MEDS: amLODIPine 5 MG TAB PO SCH (07:31)
[2019-02-11] MEDS: metFORMIN 500 MG TAB PO SCH ×2 (07:31→17:34)
[2019-02-11] MEDS: SENNOSIDES-DOCUSATE SODIUM 1 EACH TAB PO SCH (07:31)
[2019-02-11] MEDS: CARVEDILOL 12.5 MG TAB PO SCH ×2 (07:31→17:34)
[2019-02-11 08:30] VITALS: RESP 18; TEMP 98.1
[2019-02-11 09:32] LABS: Erythrocyte Sedimentation Rate 13 mm/hr (0-15)
[2019-02-11 11:33] LABS: Glucose,Whole Blood 224 mg/dL (75-99)
[2019-02-11] MEDS: oxyCODONE-APAP 10-325MG 1 EACH TAB PO PRN ×2 (12:18→17:34)
[2019-02-11] MEDS: KETOROLAC 30 MG/ML 1 ML VIAL IVP PRN (13:33)
[2019-02-11 16:33] LABS: Glucose,Whole Blood 181 mg/dL (75-99)
[2019-02-11 17:32] VITALS: BP 163/96; PULSE 66
--- NOTE | 2019-02-12 06:06 | DS ---
DISCHARGE SUMMARY FINAL DIAGNOSES: 1. Intractable back pain with failure of outpatient treatment. 2. 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 3. On IV antibiotics. 4. Hypertension. 5. Hyperlipidemia. 6. Diabetes mellitus type 2. 7. Gastroesophageal reflux disease. 8. History of syncope. 9. History of nephrolithiasis. 10.History of chronic back pain. 11.History of great toe diabetic foot ulcer. 12.Olecranon bursitis. 13.PICC line. 14.Remote history of nicotine dependence. DISCHARGE DISPOSITION: The patient is discharged in stable condition with guarded prognosis. Total time taken 35 minutes. Patient is transferred to [facility] in stable condition with guarded prognosis. HISTORY OF PRESENT ILLNESS: This 48-year-old gentleman with a past medical history of multiple medical problems was admitted with severe back pain. Patient had osteomyelitis and discitis on IV antibiotics. The patient was evaluated by Infectious Disease who felt that the patient is clinically improving, but however the patient had severe pain so Dr. Chappell who is the infectious disease physician recommended transfer to tertiary care center [facility] for further evaluation and treatment for evaluation for any potential surgery. The patient was also previously evaluated at [facility]. Currently the patient is receiving IV Kefzol 2 grams IV q.8. On exam, vital signs are stable. CARDIOVASCULAR: S1, S2 muffled. RESPIRATION: Clear to auscultation. ABDOMEN: Soft. back tenderness present. MEDICATIONS: The current medications are as follows: 1. Norvasc 5 mg p.o. daily. 2. Lipitor 80 mg q.h.s. 3. Coreg 25 mg b.i.d. 4. Kefzol 2 grams IV q.8. 5. Glucotrol 10 mg b.i.d. 6. Heparin 5000 b.i.d. 7. Apresoline 50 mg b.i.d. 8. Dilaudid 1 mg q.3 p.r.n. 9. NovoLog mix 70/30, 20 units subcu b.i.d. 10.NovoLog to scale. 11.Toradol 30 mg IV q.6. 12.Glucophage 1000 mg p.o. b.i.d. 13.Narcan 0.2 q.2 p.r.n. 14.Zofran 4 mg IV q.8. 15.Percocet 10 mg q.6 p.r.n. 16.K-Dur 10 mEq p.o. daily. 17.Effient 10 mg p.o. daily. 18.Senna 1 tablet p.o. b.i.d. 19.Maxzide 25 mg p.o. daily. Once again, the patient will be transferred in a stable condition with guarded prognosis. MMVIRAJL / PAULN: [id number] / MTDD
== END 2019-02-11 18:57 | disposition short-term general hospital (02) | DRG 552 ==
LOC: EC 17:15 → 1SOBS 19:57 → OBSVTOIN 02-11 07:08
PROVIDERS: ADMIT Internal Medicine; ATTEND Internal Medicine
DX: M46.46 Discitis, unspecified, lumbar region (principal); M46.26 Osteomyelitis of vertebra, lumbar region; E10.621 Type 1 diabetes mellitus with foot ulcer; L97.519 Non-pressure chronic ulcer of other part of right foot with unspecified severity; Z79.4 Long term (current) use of insulin; E78.5 Hyperlipidemia, unspecified; Z87.891 Personal history of nicotine dependence; I10 Essential (primary) hypertension; K21.9 Gastro-esophageal reflux disease without esophagitis; M70.20 Olecranon bursitis, unspecified elbow; R29.6 Repeated falls; Z79.02 Long term (current) use of antithrombotics/antiplatelets; Z79.899 Other long term (current) drug therapy; Z80.1 Family history of malignant neoplasm of trachea, bronchus and lung; Z82.49 Family history of ischemic heart disease and other diseases of the circulatory system; Z83.3 Family history of diabetes mellitus; Z87.442 Personal history of urinary calculi; I25.10 Atherosclerotic heart disease of native coronary artery without angina pectoris; Z95.5 Presence of coronary angioplasty implant and graft; K44.9 Diaphragmatic hernia without obstruction or gangrene; Z90.49 Acquired absence of other specified parts of digestive tract; Z86.14 Personal history of Methicillin resistant Staphylococcus aureus infection; G89.29 Other chronic pain
CPT/HCPCS: 36415; 80048; 80053; 81003; 85025; 85652; 86140; 96361; 96374; 96375; 99284

== ENCOUNTER 2019-02-17 19:24 | Inpatient (IN) | payer BC ==
[2019-02-17] MEDS ORDERED: HYDROmorphone 1 MG/ML 1 ML SYRINGE IVP STA ×2 (19:55→22:58)
--- NOTE | 2019-02-17 20:49 | CT ---
EXAMINATION TYPE: CT lumbar spine wo con DATE OF EXAM: 02/17/2019 8:40 PM COMPARISON: 01/23/2019 HISTORY: Back pain CT DLP: mGycm Automated exposure control for dose reduction was used. Unenhanced CT of the lumbar spine was performed. Bone and soft tissue window settings are submitted as well as coronal and sagittal reconstructions. Lumbar vertebra have normal alignment. There is narrowing at L5-S1 disc. There is posterior disc shavon iation at L3-4 and L5-S1 with calcification of the posterior longitudinal ligament. There is developm entally adequate spinal canal. There is multilevel lumbar hypertrophic facet arthropathy. There is a minimal relative spinal stenosis at L5-S1 due to the disc herniation and ligamentum flavum thickening . There is no compression fracture. There is no lumbar paraspinal mass. There is 5 cm cortical cyst upp er pole right kidney. There is posterior right-sided L4-5 disc lateral disc herniation with impingeme nt on the neural foramen. The sacroiliac joints appear intact. IMPRESSION: Multiple levels of lumbar disc herniation as above. No fracture seen. Lateral L4-5 disc herniation on the right side.
[2019-02-17 20:59] LABS: Basophils # (A) 0.1 k/uL (0-0.2); Basophils % (A) 1 %; Eosinophils # (A) 0.3 k/uL (0-0.7); Eosinophils % (A) 5 %; HCT 34.5 % (39.0-53.0); HGB 11.4 gm/dL (13.0-17.5); Lymphocytes # (A) 1.1 k/uL (1.0-4.8); Lymphocytes % (A) 20 %; MCH 27.8 pg (25.0-35.0); MCV 84.3 fL (80.0-100.0); Mean Platelet Volume 6.9; Monocytes # (A) 0.4 k/uL (0-1.0); Monocytes % (A) 8 %; Neutrophils # (A) 3.3 k/uL (1.3-7.7); Neutrophils % (A) 61 %; Platelet Count 241 k/uL (150-450); RDW 14.2 % (11.5-15.5); WBC 5.3 k/uL (3.8-10.6)
[2019-02-17 21:21] LABS: Anion Gap 11 mmol/L; Blood Urea Nitrogen 20 mg/dL (9-20); C Reactive Protein 5.6 mg/L (<10.0); Calcium 9.8 mg/dL (8.4-10.2); Carbon Dioxide 26 mmol/L (22-30); Chloride 99 mmol/L (98-107); Glucose 281 mg/dL (74-99); Potassium 4.2 mmol/L (3.5-5.1); Sodium 136 mmol/L (137-145)
--- NOTE | 2019-02-17 23:46 | ED ---
Back Pain HPI - General Chief Complaint: Back Pain/Injury Stated Complaint: Back Pain Time Seen by Provider: 02/17/19 19:34 Source: patient, family Limitations: no limitations - History of Present Illness Initial Comments: 48-year-old male with past medical history of osteomyelitis of the lumbar spine with discitis and intractable back pain presenting with a chief complaint of f all secondary to increased lumbar back pain. Patient states he was recently admitted for IV antibiotics at this hospital, was still having intractable back pain and subsequently was transferred to [facility] for pain consultation. He states he underwent injections of his back and "drainage around my spinal nerves" which had improved his symptoms, and was then discharged yesterday. Today while ambulating the patient had sudden onset back pain radiating down his legs which caused him to fall striking a wall with his right side, and then landing on his right knee. He denies head injury or LOC. He states the back pain continued causing him to have a second fall, similar to the first. He states he saw his neurologist today about this back pain, who increased his Percocet to 10 mg. He states his temperature was elevated at home to 99.7. Patient is still on Cefazolin. He states he thinks his end date is 02/24. He is being seen by Dr. Chappell. He admits to rigors as well. Patient sta frederic if he requires admission he does not want to be transferred to [facility]. - Related Data Home Medications Medication Instructions Recorded Confirmed Atorvastatin [Lipitor] 80 mg PO HS 11/11/18 02/17/19 Insulin NPH/Reg Insulin 70/30 20 units SQ BID 01/05/19 02/17/19 [humuLIN 70/30 VIAL] amLODIPine [Norvasc] 5 mg PO DAILY 01/05/19 02/17/19 glipiZIDE [Glucotrol] 10 mg PO BID 01/05/19 02/17/19 Triamterene-Hctz 37.5-25Mg 1 tab PO DAILY 01/23/19 02/17/19 [Maxzide 37.5-25] Previous Rx's Medication Instructions Recorded Carvedilol [Coreg*] 25 mg PO BID-W/MEALS #60 tab 11/12/18 Nitroglycerin Sl Tabs [Nitrostat] 0.4 mg SUBLINGUAL Q5M PRN #25 tab 11/12/18 Prasugrel [Effient] 10 mg PO DAILY #30 tab 11/12/18 hydrALAZINE HCL [Apresoline] 50 mg PO BID #60 tab 11/12/18 metFORMIN HCL [Glucophage] 1,000 mg PO AC-BID #0 11/12/18 ceFAZolin [Kefzol] 2 gm IVP Q8HR #126 vial 01/07/19 Potassium Chloride ER [K-Dur 20] 20 meq PO DAILY #30 tab 02/04/19 Sennosides-Docusate Sodium 1 tab PO BID #20 tablet 02/04/19 [Senokot-S] Allergies Allergy/AdvReac Type Severity Reaction Status Date / Time vancomycin Allergy ARACELIS Verified 02/17/19 19:46 Review of Systems ROS Statement: Those systems with pertinent positive or pertinent negative responses have been documented in the HPI. Review of Systems Constitutional: Denies fever, Positive chills Eyes: Denies change in vision, Denies pain Ears, nose, mouth, throat: Denies headaches, Denies sore throat Cardiovascular: Denies chest pain. Denies palpitations Respiratory: Denies shortness of breath, Denies cough Gastrointestinal: Denies abdominal pain. Denies nausea, vomiting, diarrhea. Genitourinary: Denies hematuria, Denies infections Musculoskeletal: Positive pain, Denies swelling Integumentary: Denies rash Neurological: Denies headache, focal weakness, focal numbness Psychiatric: Denies anxiety, Denies depression Hematologic/Lymphatic: Denies easy bleeding or bruising ROS Other: All systems not noted in ROS Statement are negative. Past Medical History Past Medical History: Chest Pain / Angina, Diabetes Mellitus, GERD/Reflux, Hypertension, Syncope Additional Past Medical History / Comment(s): NIDDM type II, hiatal hernia, nephrolithiasis, chronic low back pain, bilateral leg numbness, R great toe diabetic foot ulcer, past left olecranon bursitis, osteomyelitis in L4-L5 w/current treatment via PICC line History of Any Multi-Drug Resistant Organisms: MRSA Date of last positivie culture/infection: 12/21/16 MDRO Source:: Left axilla Past Surgical History: Appendectomy, Cholecystectomy, Heart Catheterization, Orthopedic Surgery Additional Past Surgical History / Comment(s): RENAL ANGIOGRAM 2005 for HTN, cardiac cath 2005, LT WRIST TENDON REPAIR 2013, RT ROTATOR CUFF REPAIR, bilateral knee arthroscopies, I&D L axillae. [address] Ha in December of 2018 Past Anesthesia/Blood Transfusion Reactions: No Reported Reaction Past Psychological History: No Psychological Hx Reported Smoking Status: Former smoker Past Alcohol Use History: None Reported Past Drug Use History: None Reported - Past Family History Father Family Medical History: Coronary Artery Disease (CAD), Diabetes Mellitus, Hypertension Additional Family Medical History / Comment(s): pt. reports his father had a four vessel CABG Mother Family Medical History: Cancer, Hypertension Additional Family Medical History / Comment(s): LUNG CANCER(NON SMOKER) General Exam - General Exam Comments Initial Comments: General: Awake, alert, No acute Distress HENT: Normocephalic. Atraumatic Eyes: PERRL. EOMI. No scleral icterus. No injected conjunctiva Neck: Full ROM Chest/Lungs: Clear to auscultation bilaterally. No wheezing, rhonchi, or rales Cardiac: Regular rate, rhythm. No murmurs or rubs Abdomen/GI: Soft, nontender, nondistended. No rebound, guarding, or rigidity. Musculoskeletal: L4-L5 midline tenderness. 1+ patellar reflexes bilaterally. Hip flexor, knee flexor and extensor motor strength 4/5 bilaterally. Skin: Warm, dry, intact Neurologic: A/Ox3, no weakness, no sensory deficit, no abnormal gait, no coordination deficit Limitations: no limitations Course Vital Signs 02/17/19 02/17/19 02/17/19 19:28 20:08 20:09 Temperature 98.2 F 99.8 F H Pulse Rate 76 69 Respiratory 20 16 Rate Blood Pressure 124/88 131/97 O2 Sat by Pulse 98 98 Oximetry 02/17/19 02/17/19 21:26 22:39 Temperature 98.8 F Pulse Rate 63 62 Respiratory 16 16 Rate Blood Pressure 113/75 105/73 O2 Sat by Pulse 96 98 Oximetry Medical Decision Making - Medical Decision Making 48 yoM presenting with back pain and fall. On initial exam the patient is awake, alert, and appears uncomfortable. He was no visible injury or laceration. He adm itted to an elevated temperature of 99.7 at home, however the patient is afebrile, has no leukocytosis and does not have an elevated CRP. I continued his Cefazolin. The patient's required multiple doses of pain medications to control his back pain. His CT showed no evidence of fracture. His MRI from 01/27/19 showed disc bulging at at L3-L4 and L5-S1 with improvement of his osteomyleitis. His CT here showed posterior disc herniation of L3-L4 and L5-S1. There is posterior right-sided disc herniation L4-5 disc lateral disc herniation with impingement on the neural foramen. Discussed with patient the findings and he states he does not want to be transferred at this time for further evaluation of these findings, and would instead prefer observation with pain control and outpatient follow up with his neurologist. Patient placed in observation under Dr. Coyne with Dr. Chappell on consult. - Lab Data Result diagrams: 02/17/19 18:15 02/17/19 18:15 Lab Results 02/17/19 02/17/19 02/17/19 Range/Units 18:15 18:15 18:15 WBC 5.3 (3.8-10.6) k/uL RBC 4.10 L (4.30-5.90) m/uL Hgb 11.4 L (13.0-17.5) gm/dL Hct 34.5 L (39.0-53.0) % MCV 84.3 (80.0-100.0) fL MCH 27.8 (25.0-35.0) pg MCHC 33.0 (31.0-37.0) g/dL RDW 14.2 (11.5-15.5) % Plt Count 241 (150-450) k/uL Neutrophils % 61 % Lymphocytes % 20 % Monocytes % 8 % Eosinophils % 5 % Basophils % 1 % Neutrophils # 3.3 (1.3-7.7) k/uL Lymphocytes # 1.1 (1.0-4.8) k/uL Monocytes # 0.4 (0-1.0) k/uL Eosinophils # 0.3 (0-0.7) k/uL Basophils # 0.1 (0-0.2) k/uL Sodium 136 L (137-145) mmol/L Potassium 4.2 (3.5-5.1) mmol/L Chloride 99 (98-107) mmol/L Carbon Dioxide 26 (22-30) mmol/L Anion Gap 11 mmol/L BUN 20 (9-20) mg/dL Creatinine 0.87 (0.66-1.25) mg/dL Est GFR (CKD-EPI)AfAm >90 (>60 ml/min/1.73 sqM) Est GFR (CKD-EPI)NonAf >90 (>60 ml/min/1.73 sqM) Glucose 281 H (74-99) mg/dL Plasma Lactic Acid Cb 1.8 (0.7-2.0) mmol/L Calcium 9.8 (8.4-10.2) mg/dL C-Reactive Protein 5.6 (<10.0) mg/L Disposition Clinical Impression: Intractable low back pain, Fall Disposition: ADMITTED IP TO THIS [facility] Decision to Admit Reason: Admit from [facility] Decision Date: 02/18/19 Decision Time: 00:17
[2019-02-18] MEDS ORDERED: NALOXONE 0.4 MG/ML 1 ML VIAL IV PRN (00:17)
[2019-02-18 01:47] VITALS: BMI 27.5
[2019-02-18] MEDS: HYDROmorphone 1 MG/ML 1 ML SYRINGE IVP PRN ×7 (02:09→21:00)
[2019-02-18] MEDS: ceFAZolin IN SWFI 2 GM/20 ML SYRINGE IVP SCH ×3 (06:10→21:01)
[2019-02-18 07:17] LABS: Glucose,Whole Blood 192 mg/dL (75-99)
[2019-02-18] MEDS: CARVEDILOL 12.5 MG TAB PO SCH ×2 (08:11→16:38)
[2019-02-18] MEDS: hydrALAZINE HCL 50 MG TAB PO SCH ×2 (08:12→20:59)
[2019-02-18] MEDS: amLODIPine 5 MG TAB PO SCH (08:12)
[2019-02-18] MEDS: glipiZIDE 10 MG TAB PO SCH ×2 (08:12→20:59)
[2019-02-18] MEDS: metFORMIN 500 MG TAB PO SCH ×2 (08:12→16:38)
[2019-02-18] MEDS: SENNOSIDES-DOCUSATE SODIUM 1 EACH TAB PO SCH ×2 (08:12→20:59)
[2019-02-18] MEDS: INSULN ASP PRT/INSULIN ASPART 100 UNIT/ML 10 ML VIAL SQ SCH ×2 (08:12→21:00)
[2019-02-18] MEDS: HYDROcodone/APAP 5-325MG 1 EACH TAB PO PRN ×4 (08:13→21:00)
[2019-02-18] MEDS: PRASUGREL 10 MG TAB PO SCH (09:27)
[2019-02-18 11:34] LABS: Glucose,Whole Blood 214 mg/dL (75-99)
[2019-02-18 17:04] LABS: Glucose,Whole Blood 207 mg/dL (75-99)
[2019-02-18 20:50] LABS: Glucose,Whole Blood 197 mg/dL (75-99)
[2019-02-18] MEDS: ATORVASTATIN 80 MG TAB PO SCH (21:00)
[2019-02-18] MEDS ORDERED: NITROGLYCERIN SL TABS 0.4 MG TAB SUBLINGUAL PRN (23:05)
[2019-02-19] MEDS ORDERED: HYDROcodone/APAP 5-325MG 1 EACH TAB ONE (02:00)
[2019-02-19] MEDS ORDERED: HYDROmorphone 1 MG/ML 1 ML SYRINGE ONE (02:00)
--- NOTE | 2019-02-19 04:09 | CONS ---
CONSULTATION DATE OF SERVICE: 02/18/2019. REASON FOR FOLLOW UP: Lumbar diskitis. HISTORY OF PRESENT ILLNESS: The patient is a 48-year-old male, well known to my service. This patient did have history of lower lumbar diskitis for which the patient has been on cefazolin 2 g q.8 hours. The patient recently did have multiple admissions to this facility for the intractable low back pain. Per for the patient, inflammatory markers remains to be normal. The patient subsequently was transferred to [facility] for further management of the same and apparently the patient has been evaluated. The patient did have a repeat MRI done at that facility. The patient not aware what the results of the MRI was. The patient was seen by the neurosurgeon, however, was advised no intervention. Subsequently the patient did have aspirate of the area done by Interventional Radiology and apparently the cultures were negative by Sunday. The patient discharged home and was advised to continue with the IV cefazolin which the patient already has. However, it is not very clear as apparently the patient did not get antibiotic for another day. Yesterday, the patient did went to his pain specialist office, Dr. Dunlap and set in the waiting room for more than an hour. Afterwards, the patient started having some pain in the low back area and when he home he has tried to do the take out his wallet and per the keys on the counter. He has acute excruciating pain to the low back, almost 10/10 with addition to the legs and the patient did have a fall. The patient was in so much pain that he was brought back to the [facility] ER where the patient has been evaluated by the ER physician. The patient has a low-grade fever of 99.8. The patient white count normal at 5.3. The patient's CRP was normal at 5.6. The patient did have a CT of the lumbar spine completed which shows multiple-level the lumbar disc herniation. No fractures seen. Left L4-5 disc herniation on the right side. The patient was started on cefazolin. Infectious Disease was consulted for further recommendation regarding antibiotic therapy. REVIEW OF SYSTEMS: Positive points have been mentioned in HPI. PAST MEDICAL HISTORY: Type 2 diabetes mellitus, hypertension, syncope, L4-L5 diskitis, right big toe diabetic foot ulcer. PAST SURGICAL HISTORY: Appendectomy, cholecystectomy, heart catheterization, bilateral knee arthroplasty and recent drainage of the lumbar disc. SOCIAL HISTORY: Remote history of smoking no drug use. FAMILY HISTORY: Father history of coronary artery disease and diabetes. Mother history of lung cancer, hypertension. ALLERGIES: VANCOMYCIN. MEDICATIONS: Medications currently include the patient is on: [place], Norvasc, Lipitor, Coreg, cefazolin 2 g. q.8, Glucotrol, hydralazine, Dilaudid, NovoLog, Glucophage, Narcan, Senokot. PHYSICAL EXAMINATION: Blood pressure 118/67 with a pulse of 63. Temperature 97.8. He is 96% on room air. General description is a middle-aged male lying in bed in no distress. No tachypnea or accessory muscle of respiration use. HEENT: Shows no pallor or scleral icterus. Oral mucosa membranes are moist. NECK: Trachea is central. No thyromegaly. LUNGS: Unlabored breathing. Clear to auscultation and percussion. HEART S1, S2. Regular rate and rhythm. ABDOMEN: Soft, no tenderness. EXTREMITIES: No feet examination: No rash or mass palpable. NEUROLOGICAL: Patient is awake, alert, oriented times three. Mood and affect normal. LABS: Hemoglobin 11.4, white count 5.3, BUN of 20 creatinine 27. CRP is 5.6. CT of lumbar spine report as mentioned above. DIAGNOSTIC IMPRESSION AND PLAN: Patient admitted to the hospital with intractable low back pain in this patient who did have a L4-5 diskitis. The patient did have multiple admissions to this facility for intractable back pain with recent hospitalization at the [facility]. Apparently the patient did have an MRI and aspirate of those areas. However, by the time the patient was discharged apparently full cultures were negative with the patient, apparently cultures were With the patient missing a of antibiotic, he did have a low-grade fever, though his CRP has been normal. Position of the fever. No fever reported today. PLAN: 1. Will try to obtain records from [facility] for his recent stay. 2. Cefazolin 2 g q.8 hours. 3. Depending on clinical response and review of those results, we will adjust the medication further. Thank you for this consultation. We'll follow this patient along with you. MMODL / IJN: [id number] /
--- NOTE | 2019-02-19 05:25 | HP ---
HISTORY AND PHYSICAL CHIEF COMPLAINT: Back pain. HISTORY OF PRESENT ILLNESS: This 48-year-old gentleman with a past medical history of multiple medical problems including L4-5 spinal osteomyelitis as well as discitis, being followed by Dr. Peters in the outpatient setting was recently admitted with intractable back pain. The patient was on IV antibiotics, but however because of intractable back pain and no new symptoms, the patient was transferred to [facility]. At [facility] multiple evaluations had been done and apparently the patient also had a spinal tap or spinal puncture also. The details are not available at this time. The patient was feeling better, but the patient came home and currently the patient complains of severe back pain which was not cured by outpatient medication. Patient admitted for further evaluation and treatment. There is no history of fever, rigors. There is no history of headache, loss of consciousness or seizures at this time. PAST MEDICAL HISTORY: Past medical history of osteomyelitis and other issues as mentioned earlier, history of diabetes type 2, GERD, hypertension, history of syncope, diabetes and CAD stent. MEDICATIONS: Home medications are: 1. Glucophage 1000 mg p.o. b.i.d. 2. Apresoline 50 mg b.i.d. 3. Glucotrol 10 mg b.i.d. 4. Kefzol 2 grams IV q.8h. 5. Norvasc 5 mg p.o. daily. 6. Maxzide 37.5/25 p.o. daily. 7. Senokot-S 1 p.o. b.i.d. 8. Effient 10 mg p.o. daily. 9. K-Dur 20 mEq p.o. daily. 10.Nitrostat 0.4 sublingual p.r.n. 11.Humulin 70/30, 20 units subcu b.i.d. 12.Coreg 25 mg p.o. b.i.d. 13.Lipitor 80 mg q.h.s. ALLERGIES: Allergies are VANCOMYCIN. FAMILY HISTORY: History of CAD, diabetes, hypertension in the family. SOCIAL HISTORY: Previous history of smoking. No history of current smoking or alcohol intake. REVIEW OF SYSTEMS: ENT: No diminished hearing or diminished vision. CARDIOVASCULAR SYSTEM: No angina. RESPIRATORY SYSTEM: As mentioned earlier. GI: No nausea. : No dysuria. NERVOUS SYSTEM: As mentioned earlier. ALLERGY/IMMUNOLOGY: No history of asthma. MUSCULOSKELETAL: As mentioned earlier. HEMATOLOGY/ONCOLOGY: No history of anemia. ENDOCRINE: As mentioned earlier. CONSTITUTIONAL: As mentioned earlier. DERMATOLOGY: Negative. RHEUMATOLOGY: Negative. PSYCHIATRY: As mentioned earlier. PHYSICAL EXAMINATION: The patient is alert and oriented. Pulse is 65, blood pressure 123/74, respirations 16, temperature 98.2, pulse ox 98% on room air. HEENT: Conjunctivae normal. Oral mucosa moist. NECK : No jugular venous distention. No carotid bruit. No lymph node enlargement. CARDIOVASCULAR: S1, S2 muffled. RESPIRATORY: Breath sounds diminished at the bases. A few scattered rhonchi, no crackles. ABDOMEN: Soft, nontender. LEGS: No edema, no swelling. EXAMINATION OF THE BACK: Some tenderness present. Nervous System: Moves all 4 limbs. No focal motor deficit. SKIN: No ulcer, rash or bleeding. JOINTS: No active deforming arthropathy. LABS: WBC 5.3, hemoglobin 11.4. Sodium 136. Glucose noted. ASSESSMENT: 1. Intractable back pain with spinal osteomyelitis. 2. History of diabetes. 3. History of hypertension. 4. Multiple medical problems. RECOMMENDATIONS AND DISCUSSION: In this patient who was admitted with multiple medical problems, will monitor the patient closely. Continue the current medications, continue symptomatic treatment. Will initiate infectious disease evaluation and pain management consultation. Otherwise we will also follow the patient closely. We will obtain records from [facility] regarding the surgical procedures. Otherwise overall prognosis guarded because of multiple complex medical issues. Further recommendations to follow. A copy of dictation forwarded to Dr. Peters who is the primary physician. MMODL / PAULN: [id number] /
[2019-02-19] MEDS: HYDROcodone/APAP 5-325MG 1 EACH TAB PO PRN ×3 (06:04→14:07)
[2019-02-19] MEDS: ceFAZolin IN SWFI 2 GM/20 ML SYRINGE IVP SCH ×3 (06:05→20:59)
[2019-02-19] MEDS: HYDROmorphone 1 MG/ML 1 ML SYRINGE IVP PRN ×5 (06:05→20:08)
[2019-02-19 07:11] LABS: Glucose,Whole Blood 142 mg/dL (75-99)
[2019-02-19] MEDS: hydrALAZINE HCL 50 MG TAB PO SCH ×2 (08:05→20:07)
[2019-02-19] MEDS: POTASSIUM CHLORIDE ER 20 MEQ TAB.ER PO SCH (08:05)
[2019-02-19] MEDS: CARVEDILOL 12.5 MG TAB PO SCH ×2 (08:05→16:42)
[2019-02-19] MEDS: glipiZIDE 10 MG TAB PO SCH ×2 (08:05→20:07)
[2019-02-19] MEDS: metFORMIN 500 MG TAB PO SCH ×2 (08:05→16:42)
[2019-02-19] MEDS: SENNOSIDES-DOCUSATE SODIUM 1 EACH TAB PO SCH ×2 (08:05→20:07)
[2019-02-19] MEDS: INSULN ASP PRT/INSULIN ASPART 100 UNIT/ML 10 ML VIAL SQ SCH ×2 (08:06→20:59)
[2019-02-19] MEDS: amLODIPine 5 MG TAB PO SCH (08:06)
[2019-02-19] MEDS: PRASUGREL 10 MG TAB PO SCH (08:06)
[2019-02-19] MEDS: TRIAMTERENE-HCTZ 37.5-25MG 1 EACH TAB PO SCH (08:06)
[2019-02-19 09:44] LABS: Basophils # (A) 0.1 k/uL (0-0.2); Basophils % (A) 2 %; Eosinophils # (A) 0.3 k/uL (0-0.7); Eosinophils % (A) 7 %; HCT 36.4 % (39.0-53.0); HGB 11.8 gm/dL (13.0-17.5); Lymphocytes # (A) 0.9 k/uL (1.0-4.8); Lymphocytes % (A) 22 %; MCHC 32.3 g/dL (31.0-37.0); MCV 83.7 fL (80.0-100.0); Mean Platelet Volume 6.8; Monocytes # (A) 0.3 k/uL (0-1.0); Monocytes % (A) 6 %; Neutrophils # (A) 2.6 k/uL (1.3-7.7); Neutrophils % (A) 61 %; Platelet Count 216 k/uL (150-450); RBC 4.36 m/uL (4.30-5.90); RDW 13.8 % (11.5-15.5); WBC 4.3 k/uL (3.8-10.6)
[2019-02-19 09:53] LABS: Anion Gap 9 mmol/L; Blood Urea Nitrogen 16 mg/dL (9-20); Calcium 9.6 mg/dL (8.4-10.2); Carbon Dioxide 27 mmol/L (22-30); Chloride 103 mmol/L (98-107); Glucose 217 mg/dL (74-99); Potassium 4.1 mmol/L (3.5-5.1); Sodium 139 mmol/L (137-145)
[2019-02-19 12:16] LABS: Glucose,Whole Blood 181 mg/dL (75-99)
[2019-02-19 17:35] LABS: Glucose,Whole Blood 177 mg/dL (75-99)
[2019-02-19] MEDS: ATORVASTATIN 80 MG TAB PO SCH (20:07)
[2019-02-19] MEDS: diphenhydrAMINE 25 MG CAP PO PRN (20:59)
[2019-02-19 22:03] LABS: Glucose,Whole Blood 217 mg/dL (75-99)
--- NOTE | 2019-02-19 22:03 | P.PAINCN ---
History of Present Illness - Reason for Consult Consult date: 02/19/19 - History of Present Illness This is 48 years old male with a history of osteomyelitis of the lumbar spine, and lumbar disc herniation, he was on Percocet 10/325 every 6 hours as an outpatient to treat his low back pain, he was admitted to [facility] because of intractable low back pain and inability to ambulate, patient had multiple admissions to [facility] because of low back pain issues, and he was evaluated recently at [facility], and they did not recommend surgical intervention for the osteomyelitis of the lumbar spine, patient being on antibiotics for 5 months, and he feels no improvement, patient being followed by infectious disease services, patient reported that he is not able to ambulate because of weakness in his lower extremity and intensity of the pain he reported that the intensity of the pain in the low back area 10 over 10 Past Medical History Past Medical History: Chest Pain / Angina, Diabetes Mellitus, GERD/Reflux, Hypertension, Syncope Additional Past Medical History / Comment(s): NIDDM type II, hiatal hernia, nephrolithiasis, chronic low back pain, bilateral leg numbness, R great toe diabetic foot ulcer, past left olecranon bursitis, osteomyelitis in L4-L5 w/current abx treatment via PICC line, managed by dr tran. History of Any Multi-Drug Resistant Organisms: MRSA Year Discovered:: 12/21/16 MDRO Source:: Left axilla Past Surgical History: Appendectomy, Cholecystectomy, Heart Catheterization With Stent, Orthopedic Surgery Additional Past Surgical History / Comment(s): RENAL ANGIOGRAM 2005 for HTN, cardiac cath 2005, LT WRIST TENDON REPAIR 2013, RT ROTATOR CUFF REPAIR, bilateral knee arthroscopies, I&D L axillae. [address] Ha in December of 2018 Past Anesthesia/Blood Transfusion Reactions: No Reported Reaction Date of Last Stent Placement:: 12/2018 Past Psychological History: No Psychological Hx Reported Additional Psychological History / Comment(s): Pt resides with his spouse and 3 children. 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 He resumed smoking in 2014 and is a 1.5ppd smoker. Pt states that he quit smoking in December 2018. Past Drug Use History: None Reported - Past Family History Father Family Medical History: Coronary Artery Disease (CAD), Diabetes Mellitus, Hypertension Additional Family Medical History / Comment(s): pt. reports his father had a four vessel CABG Mother Family Medical History: Cancer, Hypertension Additional Family Medical History / Comment(s): LUNG CANCER(NON SMOKER) Medications and Allergies Home Medications Medication Instructions Recorded Confirmed Type Atorvastatin [Lipitor] 80 mg PO HS 11/11/18 02/17/19 History Carvedilol [Coreg*] 25 mg PO BID-W/MEALS #60 tab 11/12/18 02/17/19 Rx Nitroglycerin Sl Tabs [Nitrostat] 0.4 mg SUBLINGUAL Q5M PRN #25 tab 11/12/18 02/17/19 Rx Prasugrel [Effient] 10 mg PO DAILY #30 tab 11/12/18 02/17/19 Rx hydrALAZINE HCL [Apresoline] 50 mg PO BID #60 tab 11/12/18 02/17/19 Rx metFORMIN HCL [Glucophage] 1,000 mg PO AC-BID #0 11/12/18 02/17/19 Rx Insulin NPH/Reg Insulin 70/30 20 units SQ BID 01/05/19 02/17/19 History [humuLIN 70/30 VIAL] amLODIPine [Norvasc] 5 mg PO DAILY 01/05/19 02/17/19 History glipiZIDE [Glucotrol] 10 mg PO BID 01/05/19 02/17/19 History ceFAZolin [Kefzol] 2 gm IVP Q8HR #126 vial 01/07/19 02/17/19 Rx Triamterene-Hctz 37.5-25Mg 1 tab PO DAILY 01/23/19 02/17/19 History [Maxzide 37.5-25] Potassium Chloride ER [K-Dur 20] 20 meq PO DAILY #30 tab 02/04/19 02/17/19 Rx Sennosides-Docusate Sodium 1 tab PO BID #20 tablet 02/04/19 02/17/19 Rx [Senokot-S] Allergies Allergy/AdvReac Type Severity Reaction Status Date / Time vancomycin Allergy ARACELIS Verified 02/17/19 19:46 Physical Exam Vitals: Vital Signs Temp Pulse Resp BP Pulse Ox 02/19/19 14:38 98.1 F 55 L 16 127/82 99 02/19/19 05:20 98.2 F 79 16 127/73 97 Intake and Output 02/19/19 02/19/19 02/19/19 06:59 14:59 22:59 Other: Voiding Method Toilet Toilet # Voids 3 Physical Examinations : -Constitutiona : Cooperative , not in acute distress . -HEENT : nech ; supple , no Lymphadenopathy , normal thyroid size . eyes : no ptosis , no icterus, no photophobia . ENT : normal of hearing , normal oropharynx , no Thrush . - Respiratory : Chest clear to auscultations Bilaterally , no wheezing , no Rhonchi . - Cardiovascula : regular rate and rhythem , S1 , S2 , no S3 , no S4. - Gastrointestina : abdomen soft no tenderness , bowel sounds , no organomegally . - Genitourinary : Defferred . - neurologic : Cranial nerve II to XII intact , no focal neurological deffecit . -psychatric : alert , oriented X 3 , appropriate affect , intact judgment and insight . -Lymphatic : no Lymphadenopathy . Low-grade fever - musculoskeltal : Lumber spine moter stegnth lower extremities ,thigh and legs 3-4/5 Right side , 3-4/5 Left side deep tendon reflexes : decreased Knee Jerk , decreased ankle Jerk positive lumber facet Loading Test Range of motion of the lumbar spine Flexion 30 degrees, extension 10 degrees strait leg raising test , positive at 30 degree bilaterally [place]ere test positive RT and positive LT . Results CBC & Chem 7: 02/19/19 09:06 02/19/19 09:06 Labs: Abnormal Lab Results - Last 24 Hours (Table) 02/19/19 02/19/19 02/19/19 Range/Units 07:04 09:06 09:06 Hgb 11.8 L (13.0-17.5) gm/dL Hct 36.4 L (39.0-53.0) % Lymphocytes # 0.9 L (1.0-4.8) k/uL ESR 20 H (0-15) mm/hr Glucose (74-99) mg/dL POC Glucose (mg/dL) 142 H (75-99) mg/dL 0502/19/19 02/19/19 Range/Units 09:06 11:43 17:17 Hgb (13.0-17.5) gm/dL Hct (39.0-53.0) % Lymphocytes # (1.0-4.8) k/uL ESR (0-15) mm/hr Glucose 217 H (74-99) mg/dL POC Glucose (mg/dL) 181 H 177 H (75-99) mg/dL Microbiology - Last 24 Hours (Table) 02/18/19 09:11 Blood Culture - Preliminary Blood No Growth after 24 hours Comments: Computed tomography scan of the lumbar spine reviewed Assessment and Plan Plan: Assessment and plan=1-chronic severe low back pain secondary to a myelitis of the lumbar spine with associated lumbar herniated disc disease at multilevels Patient was treated as an outpatient with Percocet 10/325 every 6 hours, and he reported the current medication is not helping to control his pain, after patient was admitted to [facility] he was started on [place], and IV Dilaudid, I recommend to start patient on fentanyl patch 25 g every 72 hours, and restart patient on Percocet 10/325 every 6 hours when necessary, patient is not a candidate for an interventional pain management procedure Time with Patient: Less than 30 PQRS Measure Charge Sheet PQRS Narrative: Smoking Status Former smoker Do You Want the Pneumonia No Vaccine AT THIS TIME? Blood Pressure [Right Arm] 127/82 Blood Pressure 105/73 Pain Intensity [Lower Back] 6 Pain Intensity 7 Pain Scale Used Numeric (1 - 10) Scale Used Numeric (1 - 10) Home Medications: Ambulatory Orders Atorvastatin [Lipitor] 80 mg PO HS 11/11/18 Carvedilol [Coreg*] 25 mg PO BID-W/MEALS #60 tab 11/12/18 Nitroglycerin Sl Tabs [Nitrostat] 0.4 mg SUBLINGUAL Q5M PRN #25 tab 11/12/18 Prasugrel [Effient] 10 mg PO DAILY #30 tab 11/12/18 hydrALAZINE HCL [Apresoline] 50 mg PO BID #60 tab 11/12/18 metFORMIN HCL [Glucophage] 1,000 mg PO AC-BID #0 11/12/18 Insulin NPH/Reg Insulin 70/30 [humuLIN 70/30 VIAL] 20 units SQ BID 01/05/19 amLODIPine [Norvasc] 5 mg PO DAILY 01/05/19 glipiZIDE [Glucotrol] 10 mg PO BID 01/05/19 ceFAZolin [Kefzol] 2 gm IVP Q8HR #126 vial 01/07/19 Triamterene-Hctz 37.5-25Mg [Maxzide 37.5-25] 1 tab PO DAILY 01/23/19 Potassium Chloride ER [K-Dur 20] 20 meq PO DAILY #30 tab 02/04/19 Sennosides-Docusate Sodium [Senokot-S] 1 tab PO BID #20 tablet 02/04/19
--- NOTE | 2019-02-19 22:20 | PN ---
PROGRESS NOTE DATE OF SERVICE: 02/19/2019 This 48-year-old gentleman who was admitted with intractable back pain and spinal osteomyelitis was recently evaluated in [facility]. Apparently the patient had a procedure and final cultures are apparently negative also. The patient is currently on broad-spectrum IV antibiotics. PICC line is also noted. Patient is being evaluated by Infectious Disease at this time. Antibiotics continued. Past medical history reviewed. REVIEW OF SYSTEMS: CARDIOVASCULAR SYSTEM: No angina, palpitations. RESPIRATORY SYSTEM: As mentioned earlier. GI: No nausea, vomiting. : No dysuria or retention. NERVOUS SYSTEM: No numbness, weakness. CURRENT MEDICATIONS: Reviewed. They include: 1. [place] 5 mg q.4 p.r.n. 2. Norvasc 5 mg daily. 3. Lipitor 80 mg at bedtime. 4. Coreg 25 mg b.i.d. 5. Kefzol 2 grams IV q.8. 6. Fentanyl patch q.72 hours. 7. Glucotrol 10 mg b.i.d. 8. Apresoline 50 mg b.i.d. 9. Dilaudid p.r.n. 10.Novolin Mix 70/30, 20 units subcutaneously b.i.d. 11.Glucophage 1000 mg p.o. b.i.d. 12.Narcan. 13.Nitrostat. 14.K-Dur 20 mEq. 15.Effient. PHYSICAL EXAMINATION: Patient is alert and oriented x3. Pulse is 55, blood pressure 127/82, respirations 16, temperature 98.1, pulse ox 99% on room air. HEENT: Conjunctivae normal. Oral mucosa moist. NECK: No jugular venous distention. No carotid bruit. No lymph node enlargement. CARDIOVASCULAR SYSTEM: S1, S2 muffled. RESPIRATORY SYSTEM: Breath sounds diminished at the bases. ABDOMEN: Soft, nontender. No mass palpable. LEGS: No edema. No Swelling. EXAMINATION OF THE BACK: Some tenderness present. LABS: WBC 4.3, hemoglobin 11.8. Glucose noted. ASSESSMENT: 1. Severe intractable back pain and history of recent spinal osteomyelitis. 2. History of recent evaluation at [facility] with final negative cultures apparently. 3. History of diabetes mellitus, type 2. 4. History of hyperlipidemia. 5. Anemia, normocytic; anemia of chronic disease. 6. History of gastroesophageal reflux disease. 7. Hypertension. 8. History of syncope. 9. History of hiatal hernia. 10.History of nephrolithiasis. 11.History of degenerative joint disease. 12.History of right great toe diabetic ulcer. 13.History of recurrent bursitis. 14.History of PICC line. 15.Coronary artery disease and stent history. 16.Remote history of nicotine dependence. 17.FULL CODE. RECOMMENDATIONS AND DISCUSSION: In this 48-year-old gentleman who presented with multiple complex medical issues, we will monitor the patient closely, continue the current medications, continue symptomatic treatment. Otherwise at this time I recommend continuing with the antibiotics. Also discussed with Dr. Chappell at length. Will obtain pain management consultation with Dr. Kumar, who saw the patient on his last admission. The patient is also requesting a neurosurgical opinion, perhaps as an outpatient. I will discuss with Dr. Chappell regarding that possibility, which would be [facility] or [facility] as an outpatient. This can also be arranged. Otherwise, continue the rest of the medications and plan of treatment. Prognosis guarded. Discussed with the patient. Discussed with staff. Further recommendations to follow. MMODL / IJN: [id number] / [id number]
--- NOTE | 2019-02-19 22:52 | P.PN ---
Subjective Progress Note Date: 02/19/19 Principal diagnosis: L4/5 discitis The patient continues to be afebrile, the patient did have a lower back pain some improvement with the pain medication the patient has been receiving denies any rigors or chills no chest pain shortness of breath or cough no abdominal pain and no diarrhea Records being faxed from [facility] were reviewed patient did have a CT-guided aspirate of the area, cultures of the same has been negative Objective - Vital Signs Vital signs: Vital Signs Temp 98.5 F 02/19/19 20:10 Pulse 62 02/19/19 20:10 Resp 16 02/19/19 20:10 BP 146/77 02/19/19 20:10 Pulse Ox 98 02/19/19 20:10 Intake & Output 02/19/19 02/19/19 02/20/19 06:59 18:59 06:59 Other: Voiding Method Toilet # Voids 1 3 1 - Exam GENERAL DESCRIPTION:[ Patient is awake and alert in no distress] HEENT: [Oral mucosa is dry and no pharyngeal erythema] EYES : [No pallor or scleral icterus] RESPIRATORY SYSTEM: [Unlabored breathing clear to auscultation] CARDIA VASCULAR SYSTEM: [S1-S2 regular rate and rhythm no murmur] GI: [Abdominal soft there's no tenderness no organomegaly] EXTREMITIES: [No edema feet] - Labs CBC & Chem 7: 02/19/19 09:06 02/19/19 09:06 Labs: Abnormal Lab Results - Last 24 Hours (Table) 02/19/19 02/19/19 02/19/19 Range/Units 07:04 09:06 09:06 Hgb 11.8 L (13.0-17.5) gm/dL Hct 36.4 L (39.0-53.0) % Lymphocytes # 0.9 L (1.0-4.8) k/uL ESR 20 H (0-15) mm/hr Glucose (74-99) mg/dL POC Glucose (mg/dL) 142 H (75-99) mg/dL 02/19/19 02/19/19 02/19/19 Range/Units 09:06 11:43 17:17 Hgb (13.0-17.5) gm/dL Hct (39.0-53.0) % Lymphocytes # (1.0-4.8) k/uL ESR (0-15) mm/hr Glucose 217 H (74-99) mg/dL POC Glucose (mg/dL) 181 H 177 H (75-99) mg/dL 02/19/19 Range/Units 20:49 Hgb (13.0-17.5) gm/dL Hct (39.0-53.0) % Lymphocytes # (1.0-4.8) k/uL ESR (0-15) mm/hr Glucose (74-99) mg/dL POC Glucose (mg/dL) 217 H (75-99) mg/dL Microbiology - Last 24 Hours (Table) 02/18/19 09:11 Blood Culture - Preliminary Blood No Growth after 24 hours Assessment and Plan Assessment: 1-patient presented to hospital for intractable low back pain which is likely multifactorial in this patient who did have degenerative changes in his findings were also a component of L4/5 discitis for the patient is currently on IV cefazolin therapy Plan: 1-cefazolin 2 g every 8 hours to continue to finish his course of therapy 2-pain management per admitting team
[2019-02-20] MEDS: HYDROmorphone 1 MG/ML 1 ML SYRINGE IVP PRN ×4 (01:09→18:01)
[2019-02-20] MEDS: ceFAZolin IN SWFI 2 GM/20 ML SYRINGE IVP SCH ×3 (06:29→21:56)
[2019-02-20 07:15] LABS: Glucose,Whole Blood 118 mg/dL (75-99)
[2019-02-20] MEDS: glipiZIDE 10 MG TAB PO SCH ×2 (08:02→21:56)
[2019-02-20] MEDS: SENNOSIDES-DOCUSATE SODIUM 1 EACH TAB PO SCH ×2 (08:03→21:55)
[2019-02-20] MEDS: hydrALAZINE HCL 50 MG TAB PO SCH ×2 (08:03→21:55)
[2019-02-20] MEDS: metFORMIN 500 MG TAB PO SCH ×2 (08:03→16:37)
[2019-02-20] MEDS: POTASSIUM CHLORIDE ER 20 MEQ TAB.ER PO SCH (08:03)
[2019-02-20] MEDS: amLODIPine 5 MG TAB PO SCH (08:03)
[2019-02-20] MEDS: oxyCODONE-APAP 10-325MG 1 EACH TAB PO PRN ×2 (08:03→22:00)
[2019-02-20] MEDS: CARVEDILOL 12.5 MG TAB PO SCH ×2 (08:03→16:37)
[2019-02-20] MEDS: INSULN ASP PRT/INSULIN ASPART 100 UNIT/ML 10 ML VIAL SQ SCH ×2 (08:08→21:56)
[2019-02-20] MEDS: TRIAMTERENE-HCTZ 37.5-25MG 1 EACH TAB PO SCH (08:09)
[2019-02-20] MEDS: PRASUGREL 10 MG TAB PO SCH (08:09)
[2019-02-20 09:23] LABS: Basophils # (A) 0.1 k/uL (0-0.2); Basophils % (A) 2 %; Eosinophils # (A) 0.3 k/uL (0-0.7); Eosinophils % (A) 6 %; HCT 34.8 % (39.0-53.0); HGB 11.7 gm/dL (13.0-17.5); Lymphocytes # (A) 0.9 k/uL (1.0-4.8); Lymphocytes % (A) 21 %; MCH 27.9 pg (25.0-35.0); MCHC 33.5 g/dL (31.0-37.0); MCV 83.3 fL (80.0-100.0); Mean Platelet Volume 7.2; Monocytes # (A) 0.4 k/uL (0-1.0); Monocytes % (A) 8 %; Neutrophils # (A) 2.6 k/uL (1.3-7.7); Neutrophils % (A) 61 %; Platelet Count 204 k/uL (150-450); RBC 4.18 m/uL (4.30-5.90); RDW 14.1 % (11.5-15.5); WBC 4.2 k/uL (3.8-10.6)
[2019-02-20 09:31] LABS: Anion Gap 8 mmol/L; Blood Urea Nitrogen 16 mg/dL (9-20); Calcium 9.6 mg/dL (8.4-10.2); Carbon Dioxide 29 mmol/L (22-30); Chloride 104 mmol/L (98-107); Glucose 125 mg/dL (74-99); Sodium 141 mmol/L (137-145)
[2019-02-20 11:31] LABS: Glucose,Whole Blood 153 mg/dL (75-99)
--- NOTE | 2019-02-20 13:19 | CDI ---
Documentation Clarification Form Date: 02/20/2019 CDS: Sonia Saravia, CCS, CCDS Admit Date: 02/19/2019 Patient Name: Jeet Gonzalez ATTENTION: The Clinical Documentation Specialists (CDI) and [facility] Coding Staff appreciate your assistance in clarifying documentation. Please respond to the clarification below the line at the bottom and electronically sign. The CDI & [facility] Coding staff will review the response and follow-up if needed. Please note: Queries are made part of the Legal Health Record. If you have any questions, please contact the author of this message via ITS. Dear Dr. Coyne: Per the History & Physical assessment: Intractable back pain with spinal osteomyelitis. Per the Infectious Disease Consult assessment: Patient admitted to the hospital with intractable low back pain in this patient who did have a L4-5 diskitis. Per the Pain Management Consult assessment: Assessment and plan=1-chronic severe low back pain secondary to a myelitis of the lumbar spine with associated lumbar herniated disc disease at multi levels. Patient history/risk factors: Hypertension, NIDDM II, GERD, Nephrolithiasis, Chronic low back pain, Bilateral leg numbness, Osteomyelitis L4-L5 w/ICC line antibiotic treatment, MRSA left axilla 12/22. Former smoker. Clinical Indicators: Presented with intractable low back pain, recent fall secondary to increased lumbar back pain, recently admitted for IV antibiotics this hospital & transferred to [facility] for pain consultation status post injections & drainage of spinal nerves. Diagnosed previously with osteomyelitis of the lumbar spine with discitis. Radiology: CT Lumbar spine: Multiple levels of lumbar disc herniation as above. No fracture seen. Lateral L4-5 disc herniation on the right side. Labs: Hgb 11.4*, Na 136*, Glucose 281^, Vital Signs: T 98.2 - 99.8^. Treatment: IV Dilaudid x3, IV Narcan, IV Kefzol, Pain management: Fentanyl Patch & resumed Percocet. Consults: Infectious Disease & Pain management Clinical significance of diagnostic testing and treatment cannot be assumed without physician documentation of the significance. In your professional opinion, can you please clarify the underlying cause(s)of the patients symptoms, if known? Spinal Osteomyelitis o Acute o Chronic o Acute on Chronic Lumbar discitis Lumbar herniated disc, please specify levels Degenerative Disc Disease Please specify the vertebrae involved Other, please specify Unable to determine (Last Revision: July 2017) Spinal Osteomyelitis o Acute on Chronic MTDD
[2019-02-20] MEDS ORDERED: KETOROLAC 30 MG/ML 1 ML VIAL IVP PRN (14:15)
--- NOTE | 2019-02-20 14:16 | P.PN ---
Subjective 48-year-old male was admitted secondary to intractable back pain patient has discitis and infection of L4-L5 disc area. Patient was to transfer to [facility] came back here after discharge from [facility] Arches were done on the fluid that was obtained from the this intervertebral space which was negative for any infection patient received enough antibiotics patient apparently will need to back surgery. Patient states his pain is still uncontrolled pain management is evaluating the patient patient was started on fentanyl patch in spite of which he says his pain is not well controlled. Constitutional: Denied any fatigue denied any fever. Cardio vascular: denied any chest pain, palpitations Gastrointestinal denied any nausea vomiting Pulmonary: Denied any shortness of breath cough Neurologic denied any new focal deficits All inpatient medications were reviewed and appropriate changes in these medications as dictated in the interval history and assessment and plan. Objective - Vital Signs Vital signs: Vital Signs Temp 98.8 F 02/20/19 13:12 Pulse 65 02/20/19 13:12 Resp 16 02/20/19 13:12 BP 130/78 02/20/19 13:12 Pulse Ox 96 02/20/19 13:12 Intake & Output 02/19/19 02/20/19 02/20/19 18:59 06:59 18:59 Other: Voiding Method Toilet # Voids 3 2 3 # Bowel Movements 1 - Exam PHYSICAL EXAMINATION: GENERAL: The patient is alert and oriented x3, not in any acute distress. Well developed, well nourished. HEENT: Pupils are round and equally reacting to light. EOMI. No scleral icterus. No conjunctival pallor. Normocephalic, atraumatic. No pharyngeal erythema. No thyromegaly. CARDIOVASCULAR: S1 and S2 present. No murmurs, rubs, or gallops. PULMONARY: Chest is clear to auscultation, no wheezing or crackles. ABDOMEN: Soft, nontender, nondistended, normoactive bowel sounds. No palpable organomegaly. MUSCULOSKELETAL: No joint swelling or deformity. Patient still has some paraspinal tenderness in the left lower lumbar spinal area. EXTREMITIES: No cyanosis, clubbing, or pedal edema. NEUROLOGICAL: Gross neurological examination did not reveal any focal deficits. SKIN: No rashes. - Labs CBC & Chem 7: 02/20/19 08:04 02/20/19 08:04 Labs: Abnormal Lab Results - Last 24 Hours (Table) 05/15/19 05/15/19 05/16/19 Range/Units 17:17 20:49 07:10 RBC (4.30-5.90) m/uL Hgb (13.0-17.5) gm/dL Hct (39.0-53.0) % Lymphocytes # (1.0-4.8) k/uL Glucose (74-99) mg/dL POC Glucose (mg/dL) 177 H 217 H 118 H (75-99) mg/dL 02/20/19 02/20/19 02/20/19 Range/Units 08:04 08:04 11:27 RBC 4.18 L (4.30-5.90) m/uL Hgb 11.7 L (13.0-17.5) gm/dL Hct 34.8 L (39.0-53.0) % Lymphocytes # 0.9 L (1.0-4.8) k/uL Glucose 125 H (74-99) mg/dL POC Glucose (mg/dL) 153 H (75-99) mg/dL Microbiology - Last 24 Hours (Table) 02/18/19 09:11 Blood Culture - Preliminary Blood No Growth after 48 hours Assessment and Plan Plan: Severe intractable back pain secondary to discitis: Patient the was evaluated by pain and specialists already check his medications may benefit from some nonsteroidal anti-inflammatory medications. Patient doesn't have any side effects of constipation at this time patient was started on fentanyl patch by roller painter will discuss with pain management as well. -Discitis for which patient received days of antibiotics -Type 2 diabetes mellitus Hyperlipidemia -Hypertension -Coronary artery disease with stent placement in the past For above-mentioned chronic medical problems patient will be continued on present medications.
[2019-02-20 17:39] LABS: Glucose,Whole Blood 148 mg/dL (75-99)
[2019-02-20] MEDS ORDERED: ONDANSETRON 4 MG/2 ML VIAL IVP PRN (19:48)
[2019-02-20 20:46] LABS: Glucose,Whole Blood 109 mg/dL (75-99)
[2019-02-20] MEDS: ATORVASTATIN 80 MG TAB PO SCH (21:55)
[2019-02-20] MEDS: diphenhydrAMINE 25 MG CAP PO PRN (21:55)
[2019-02-20] MEDS: FAMOTIDINE 20 MG TAB PO SCH (21:55)
--- NOTE | 2019-02-21 00:17 | P.PN ---
Subjective Progress Note Date: 02/20/19 Principal diagnosis: L4/5 discitis The patient is afebrile, the patient is feeling Better however the patient continue to have a lower back pain with intensity about 8 out of 10 and some radiation to the right leg no bowel or bladder problem and no chest pain shortness of breath or cough Objective - Vital Signs Vital signs: Vital Signs Temp 98.8 F 02/20/19 13:12 Pulse 65 02/20/19 13:12 Resp 16 02/20/19 13:12 BP 130/78 02/20/19 13:12 Pulse Ox 96 02/20/19 13:12 Intake & Output 02/19/19 02/20/19 02/20/19 18:59 06:59 18:59 Other: Voiding Method Toilet # Voids 3 2 3 # Bowel Movements 1 - Exam GENERAL DESCRIPTION:[ Patient is awake and alert in no distress] HEENT: [Oral mucosa is dry and no pharyngeal erythema] EYES : [No pallor or scleral icterus] RESPIRATORY SYSTEM: [Unlabored breathing clear to auscultation] CARDIA VASCULAR SYSTEM: [S1-S2 regular rate and rhythm no murmur] GI: [Abdominal soft there's no tenderness no organomegaly] EXTREMITIES: [No edema feet] - Labs CBC & Chem 7: 02/20/19 08:04 02/20/19 08:04 Labs: Abnormal Lab Results - Last 24 Hours (Table) 02/19/19 02/19/19 02/20/19 Range/Units 17:17 20:49 07:10 RBC (4.30-5.90) m/uL Hgb (13.0-17.5) gm/dL Hct (39.0-53.0) % Lymphocytes # (1.0-4.8) k/uL Glucose (74-99) mg/dL POC Glucose (mg/dL) 177 H 217 H 118 H (75-99) mg/dL 02/20/19 02/20/19 02/20/19 Range/Units 08:04 08:04 11:27 RBC 4.18 L (4.30-5.90) m/uL Hgb 11.7 L (13.0-17.5) gm/dL Hct 34.8 L (39.0-53.0) % Lymphocytes # 0.9 L (1.0-4.8) k/uL Glucose 125 H (74-99) mg/dL POC Glucose (mg/dL) 153 H (75-99) mg/dL Microbiology - Last 24 Hours (Table) 02/18/19 09:11 Blood Culture - Preliminary Blood No Growth after 48 hours Assessment and Plan Assessment: 1-patient presented to hospital for intractable low back pain which is likely multifactorial in this patient who did have degenerative changes in his findings were also a component of L4/5 discitis for which the patient is currently on IV cefazolin therapy Plan: 1-cefazolin 2 g every 8 hours will be continued for 2 weeks in the outpatient clinic to finish his course of therapy 2-pain management per admitting team Time with Patient: Less than 30
[2019-02-21] MEDS: HYDROmorphone 1 MG/ML 1 ML SYRINGE IVP PRN ×3 (01:31→11:32)
--- NOTE | 2019-02-21 04:43 | P.PAINPG ---
Subjective Progress Note Date: 02/21/19 This is 48 years old male with a history of osteomyelitis of the lumbar spine, and lumbar disc herniation. He was admitted to [facility] because of intractable low back pain and inability to ambulate. patient had multiple admissions to [facility] because of low back pain issues, and he was evaluated recently at [facility], and they did not recommend surgical intervention for the osteomyelitis of the lumbar spine, patient being on antibiotics for 5 months, and he feels no improvement, patient being followed by infectious disease services. He was evaluated by pain service earlier in his visit and started on a fentanyl Duragesic patch 25 mcg, Percocet 10 mg/325 mg every 6 hours, and IV Dilaudid 1 mg every 3 hours as needed. He states that the IV Dilaudid is normal and thing that has been helpful for him, he had fentanyl patch on for roughly 18 hours noticed no relief and significant pruritus in his eyes so he removed the patch. His VAS today is a 9 out of 10 in severity he looks to be and mild to moderate distress with very limited mo bility. Objective - Vital Signs Vital signs: Vital Signs Temp 98.8 F 02/21/19 01:40 Pulse 70 02/21/19 01:40 Resp 16 02/21/19 01:40 BP 148/86 02/21/19 01:40 Pulse Ox 95 02/21/19 01:40 Intake & Output 02/20/19 02/20/19 02/21/19 06:59 18:59 06:59 Other: # Voids 2 3 1 # Bowel Movements 1 - Constitutional General appearance: Present: mild distress - Labs CBC & Chem 7: 02/20/19 08:04 02/20/19 08:04 Labs: Abnormal Lab Results - Last 24 Hours (Table) 02/20/19 02/20/19 02/20/19 Range/Units 07:10 08:04 08:04 RBC 4.18 L (4.30-5.90) m/uL Hgb 11.7 L (13.0-17.5) gm/dL Hct 34.8 L (39.0-53.0) % Lymphocytes # 0.9 L (1.0-4.8) k/uL Glucose 125 H (74-99) mg/dL POC Glucose (mg/dL) 118 H (75-99) mg/dL 02/20/19 02/20/19 02/20/19 Range/Units 11:27 17:19 20:41 RBC (4.30-5.90) m/uL Hgb (13.0-17.5) gm/dL Hct (39.0-53.0) % Lymphocytes # (1.0-4.8) k/uL Glucose (74-99) mg/dL POC Glucose (mg/dL) 153 H 148 H 109 H (75-99) mg/dL Microbiology - Last 24 Hours (Table) 02/18/19 09:11 Blood Culture - Preliminary Blood No Growth after 48 hours Assessment and Plan Plan: Assessment: 1. Osteomyelitis of the lumbar spine 2. Lumbar herniated disc Plan: 1. Encouraged patient to continue on his fentanyl Duragesic patch, patient has chronic consistent pain in his low back and require some degree of long-acting medication. He does not want to try the oral medications we discussed that the pruritus the fentanyl Duragesic patch will improve with use and that the only side effects that could potentially remain are constipation. He noted no relief with the 25 g/day Duragesic patch will increase it to 37 g/day 2. Continue his Percocet 10 mg/25 mg every 6 hours 3. Patient tolerates NSAIDs which could be beneficial for his bone-related pain from osteo-myelitis. Continue with Toradol discharge patient on naproxen 500 mg twice a day. 4. Minimize IV Dilaudid use in order to get a outpatient regimen. Time with Patient: Less than 30 PQRS Measure Charge Sheet PQRS Narrative: Smoking Status Former smoker Do You Want the Pneumonia No Vaccine AT THIS TIME? Blood Pressure [Right Arm] 148/86 Blood Pressure 105/73 Pain Intensity [Lower Back] 0 Pain Intensity 7 Pain Scale Used Numeric (1 - 10) Scale Used Numeric (1 - 10) Home Medications: Ambulatory Orders Atorvastatin [Lipitor] 80 mg PO HS 11/11/18 Carvedilol [Coreg*] 25 mg PO BID-W/MEALS #60 tab 11/12/18 Nitroglycerin Sl Tabs [Nitrostat] 0.4 mg SUBLINGUAL Q5M PRN #25 tab 11/12/18 Prasugrel [Effient] 10 mg PO DAILY #30 tab 11/12/18 hydrALAZINE HCL [Apresoline] 50 mg PO BID #60 tab 11/12/18 metFORMIN HCL [Glucophage] 1,000 mg PO AC-BID #0 11/12/18 Insulin NPH/Reg Insulin 70/30 [humuLIN 70/30 VIAL] 20 units SQ BID 01/05/19 amLODIPine [Norvasc] 5 mg PO DAILY 01/05/19 glipiZIDE [Glucotrol] 10 mg PO BID 01/05/19 ceFAZolin [Kefzol] 2 gm IVP Q8HR #126 vial 01/07/19 Triamterene-Hctz 37.5-25Mg [Maxzide 37.5-25] 1 tab PO DAILY 01/23/19 Potassium Chloride ER [K-Dur 20] 20 meq PO DAILY #30 tab 02/04/19 Sennosides-Docusate Sodium [Senokot-S] 1 tab PO BID #20 tablet 02/04/19 Controlled Substance Measures - Controlled Substance Measures Is patient prescribed a controlled substance at discharge?: Yes When asked, does pt state using other controlled substances?: No If prescribed controlled substance>3 days was MAPS reviewed?: Yes If Rx opioid, was Start Talking consent form obtained?: Yes If opioid is for acute pain is fill amount 7 days or less?: No Was information provided regarding opioid addiction?: Yes
[2019-02-21] MEDS: ceFAZolin IN SWFI 2 GM/20 ML SYRINGE IVP SCH (06:14)
[2019-02-21] MEDS: oxyCODONE-APAP 10-325MG 1 EACH TAB PO PRN (06:16)
[2019-02-21 07:01] LABS: Glucose,Whole Blood 74 mg/dL (75-99)
[2019-02-21 07:43] VITALS: BP 177/91; PULSE 58; RESP 15; TEMP 98.3
[2019-02-21] MEDS: PRASUGREL 10 MG TAB PO SCH (08:06)
[2019-02-21] MEDS: POTASSIUM CHLORIDE ER 20 MEQ TAB.ER PO SCH (08:06)
[2019-02-21] MEDS: TRIAMTERENE-HCTZ 37.5-25MG 1 EACH TAB PO SCH (08:06)
[2019-02-21] MEDS: SENNOSIDES-DOCUSATE SODIUM 1 EACH TAB PO SCH (08:06)
[2019-02-21] MEDS: glipiZIDE 10 MG TAB PO SCH (08:06)
[2019-02-21] MEDS: CARVEDILOL 12.5 MG TAB PO SCH (08:06)
[2019-02-21] MEDS: FAMOTIDINE 20 MG TAB PO SCH (08:06)
[2019-02-21] MEDS: amLODIPine 5 MG TAB PO SCH (08:06)
[2019-02-21] MEDS: metFORMIN 500 MG TAB PO SCH (08:06)
[2019-02-21] MEDS: hydrALAZINE HCL 50 MG TAB PO SCH (08:07)
[2019-02-21 09:40] LABS: Glucose,Whole Blood 199 mg/dL (75-99)
[2019-02-21 09:44] LABS: Basophils # (A) 0.1 k/uL (0-0.2); Basophils % (A) 2 %; Eosinophils # (A) 0.3 k/uL (0-0.7); Eosinophils % (A) 5 %; HCT 35.8 % (39.0-53.0); HGB 11.8 gm/dL (13.0-17.5); Lymphocytes # (A) 0.9 k/uL (1.0-4.8); Lymphocytes % (A) 17 %; MCH 27.4 pg (25.0-35.0); MCV 83.1 fL (80.0-100.0); Mean Platelet Volume 7.3; Monocytes # (A) 0.4 k/uL (0-1.0); Monocytes % (A) 7 %; Neutrophils # (A) 3.5 k/uL (1.3-7.7); Neutrophils % (A) 67 %; Platelet Count 200 k/uL (150-450); WBC 5.2 k/uL (3.8-10.6)
[2019-02-21 10:08] LABS: Anion Gap 7 mmol/L; Blood Urea Nitrogen 21 mg/dL (9-20); Calcium 9.7 mg/dL (8.4-10.2); Carbon Dioxide 29 mmol/L (22-30); Chloride 103 mmol/L (98-107); Glucose 174 mg/dL (74-99); Sodium 139 mmol/L (137-145)
[2019-02-21] MEDS: INSULN ASP PRT/INSULIN ASPART 100 UNIT/ML 10 ML VIAL SQ SCH (10:42)
--- NOTE | 2019-02-21 10:59 | P.DS ---
Providers Date of admission: 02/19/19 09:16 Attending physician: Harris Coyne Consults: 02/18/19 00:27 Consult Physician Routine Consulting Provider: Ta Chappell Consult Reason/Comments: continued managment of discitis Do you want consulting provider notified?: Yes, Notify in am 02/19/19 09:28 Consult Physician Routine Consulting Provider: Kyle Kumar Consult Reason/Comments: Pain management; Back Pain Do you want consulting provider notified?: Yes Primary care physician: Tree Moises [facility] Course: 48-year-old male was admitted secondary to intractable back pain patient has discitis and infection of L4-L5 disc area. Patient was to transfer to [facility] came back here after discharge from [facility] Arches were done on the fluid that was obtained from the this intervertebral space which was negative for any infection patient received enough antibiotics patient apparently will need to back surgery. Patient states his pain is still uncontrolled pain management is evaluating the patient patient was started on fentanyl patch in spite of which he says his pain is not well controlled. 02/21/2019 patient says his pain is not improved at all. His fentanyl patch was increased by environment services. Patient is comfortable and objectively not in pain pain. I believe patient is malingering for opiates. Patient received a patch as today because of which I said I would not be able to prescribe him fentanyl and the patient was negotiating to get opiates. Patient will be given prescription for naproxen patient does have narcotic seeking behavior. Did discuss with infectious disease the recommending 2 more weeks of Cefazolin did I offered him subacute rehab but the patient wanted to go home. Adding additional opiate and algesia will not be beneficial in my opinion. PHYSICAL EXAMINATION: GENERAL: The patient is alert and oriented x3, not in any acute distress. Well developed, well nourished. HEENT: Pupils are round and equally reacting to light. EOMI. No scleral icterus. No conjunctival pallor. Normocephalic, atraumatic. No pharyngeal erythema. No thyromegaly. CARDIOVASCULAR: S1 and S2 present. No murmurs, rubs, or gallops. PULMONARY: Chest is clear to auscultation, no wheezing or crackles. ABDOMEN: Soft, nontender, nondistended, normoactive bowel sounds. No palpable organomegaly. MUSCULOSKELETAL: No joint swelling or deformity. Patient still has some paraspinal tenderness in the left lower lumbar spinal area. EXTREMITIES: No cyanosis, clubbing, or pedal edema. NEUROLOGICAL: Gross neurological examination did not reveal any focal deficits. SKIN: No rashes. Assessment and Plan Plan: Severe intractable back pain secondary to discitis: -Discitis for which patient received days of antibiotics -Type 2 diabetes mellitus Hyperlipidemia -Hypertension -Coronary artery disease with stent placement in the past Plan - Discharge Summary New Discharge Prescriptions: New Naproxen [Naprosyn] 500 mg PO Q12HR #30 tab Famotidine [Pepcid] 20 mg PO BID #30 tab Continue Atorvastatin [Lipitor] 80 mg PO HS Carvedilol [Coreg*] 25 mg PO BID-W/MEALS #60 tab hydrALAZINE HCL [Apresoline] 50 mg PO BID #60 tab Nitroglycerin Sl Tabs [Nitrostat] 0.4 mg SUBLINGUAL Q5M PRN #25 tab PRN Reason: Chest Pain Prasugrel [Effient] 10 mg PO DAILY #30 tab metFORMIN HCL [Glucophage] 1,000 mg PO AC-BID #0 glipiZIDE [Glucotrol] 10 mg PO BID Insulin NPH/Reg Insulin 70/30 [humuLIN 70/30 VIAL] 20 units SQ BID amLODIPine [Norvasc] 5 mg PO DAILY ceFAZolin [Kefzol] 2 gm IVP Q8HR #126 vial Triamterene-Hctz 37.5-25Mg [Maxzide 37.5-25] 1 tab PO DAILY Sennosides-Docusate Sodium [Senokot-S] 1 tab PO BID #20 tablet Potassium Chloride ER [K-Dur 20] 20 meq PO DAILY #30 tab Discharge Medication List Atorvastatin [Lipitor] 80 mg PO HS 11/11/18 [History] Carvedilol [Coreg*] 25 mg PO BID-W/MEALS #60 tab 11/12/18 [Rx] Nitroglycerin Sl Tabs [Nitrostat] 0.4 mg SUBLINGUAL Q5M PRN #25 tab 11/12/18 [Rx] Prasugrel [Effient] 10 mg PO DAILY #30 tab 11/12/18 [Rx] hydrALAZINE HCL [Apresoline] 50 mg PO BID #60 tab 11/12/18 [Rx] metFORMIN HCL [Glucophage] 1,000 mg PO AC-BID #0 11/12/18 [Rx] Insulin NPH/Reg Insulin 70/30 [humuLIN 70/30 VIAL] 20 units SQ BID 01/05/19 [History] amLODIPine [Norvasc] 5 mg PO DAILY 01/05/19 [History] glipiZIDE [Glucotrol] 10 mg PO BID 01/05/19 [History] ceFAZolin [Kefzol] 2 gm IVP Q8HR #126 vial 01/07/19 [Rx] Triamterene-Hctz 37.5-25Mg [Maxzide 37.5-25] 1 tab PO DAILY 01/23/19 [History] Potassium Chloride ER [K-Dur 20] 20 meq PO DAILY #30 tab 02/04/19 [Rx] Sennosides-Docusate Sodium [Senokot-S] 1 tab PO BID #20 tablet 02/04/19 [Rx] Famotidine [Pepcid] 20 mg PO BID #30 tab 02/21/19 [Rx] Naproxen [Naprosyn] 500 mg PO Q12HR #30 tab 02/21/19 [Rx] Follow up Appointment(s)/Referral(s): Anuel Peters MD [Primary Care Provider] - 1-2 days [facility], [[facility]STAFF] - As Needed [facility] [NON-STAFF] - As Needed Discharge Disposition: HOME WITH HOME HEALTH SERVICES
[2019-02-21 11:30] LABS: Glucose,Whole Blood 215 mg/dL (75-99)
--- NOTE | 2019-02-21 22:04 | P.PN ---
Subjective Progress Note Date: 02/21/19 Principal diagnosis: L4/5 discitis The patient denies any fever or chills, the patient is upset for not available to get fentanyl patch prescription on discharge for management of his pain, denies having any chest pain shortness of breath or cough no abdominal pain and no diarrhea Objective - Vital Signs Vital signs: Vital Signs Temp 98.3 F 02/21/19 07:00 Pulse 58 L 02/21/19 07:00 Resp 15 02/21/19 07:00 BP 177/91 02/21/19 07:00 Pulse Ox 95 02/21/19 07:00 Intake & Output 02/20/19 02/21/19 02/21/19 18:59 06:59 18:59 Intake Total 200 Balance 200 Intake: Oral 200 Other: Voiding Method Toilet # Voids 3 2 # Bowel Movements 1 - Exam GENERAL DESCRIPTION:[ Patient is awake and alert in no distress] HEENT: [Oral mucosa is dry and no pharyngeal erythema] EYES : [No pallor or scleral icterus] RESPIRATORY SYSTEM: [Unlabored breathing clear to auscultation] CARDIA VASCULAR SYSTEM: [S1-S2 regular rate and rhythm no murmur] GI: [Abdominal soft there's no tenderness no organomegaly] EXTREMITIES: [No edema feet] - Labs CBC & Chem 7: 02/21/19 08:53 02/21/19 08:53 Labs: Abnormal Lab Results - Last 24 Hours (Table) 02/20/19 02/20/19 02/21/19 Range/Units 17:19 20:41 07:00 Hgb (13.0-17.5) gm/dL Hct (39.0-53.0) % Lymphocytes # (1.0-4.8) k/uL BUN (9-20) mg/dL Glucose (74-99) mg/dL POC Glucose (mg/dL) 148 H 109 H 74 L (75-99) mg/dL 02/21/19 02/21/19 02/21/19 Range/Units 08:53 08:53 09:38 Hgb 11.8 L (13.0-17.5) gm/dL Hct 35.8 L (39.0-53.0) % Lymphocytes # 0.9 L (1.0-4.8) k/uL BUN 21 H (9-20) mg/dL Glucose 174 H (74-99) mg/dL POC Glucose (mg/dL) 199 H (75-99) mg/dL 02/21/19 Range/Units 11:29 Hgb (13.0-17.5) gm/dL Hct (39.0-53.0) % Lymphocytes # (1.0-4.8) k/uL BUN (9-20) mg/dL Glucose (74-99) mg/dL POC Glucose (mg/dL) 215 H (75-99) mg/dL Microbiology - Last 24 Hours (Table) 02/18/19 09:11 Blood Culture - Preliminary Blood No Growth after 72 hours Assessment and Plan Assessment: 1-patient presented to hospital for intractable low back pain which is likely multifactorial in this patient who did have degenerative changes in his findings were also a component of L4/5 discitis for which the patient is currently on IV cefazolin therapy Plan: 1-cefazolin 2 g every 8 hours will be continued for 2 weeks in the outpatient clinic to finish his course of therapy 2-pain management per admitting team 3-weekly monitoring of CBC BMP and a sed rate Multiple questions were answered in the presence of his Time with Patient: Less than 30
== END 2019-02-21 15:58 | disposition home health service (06) | DRG 552 ==
LOC: EC 19:24 → 4MS4W 02-18 00:22 → OBSVTOIN 02-19 09:16 → 4SSUR 02-20 17:17
PROVIDERS: ADMIT Hospitalist; ATTEND Hospitalist
DX: M46.46 Discitis, unspecified, lumbar region (principal); M46.26 Osteomyelitis of vertebra, lumbar region; E11.69 Type 2 diabetes mellitus with other specified complication; D63.8 Anemia in other chronic diseases classified elsewhere; E78.5 Hyperlipidemia, unspecified; I10 Essential (primary) hypertension; I25.10 Atherosclerotic heart disease of native coronary artery without angina pectoris; K21.9 Gastro-esophageal reflux disease without esophagitis; G89.29 Other chronic pain; K44.9 Diaphragmatic hernia without obstruction or gangrene; M19.90 Unspecified osteoarthritis, unspecified site; Z76.5 Malingerer [conscious simulation]; Z79.02 Long term (current) use of antithrombotics/antiplatelets; Z79.4 Long term (current) use of insulin; Z79.899 Other long term (current) drug therapy; Z88.4 Allergy status to anesthetic agent; Z87.442 Personal history of urinary calculi; Z87.891 Personal history of nicotine dependence; Z95.5 Presence of coronary angioplasty implant and graft; Z96.653 Presence of artificial knee joint, bilateral; Z86.14 Personal history of Methicillin resistant Staphylococcus aureus infection; Z90.49 Acquired absence of other specified parts of digestive tract; Z80.1 Family history of malignant neoplasm of trachea, bronchus and lung; Z82.49 Family history of ischemic heart disease and other diseases of the circulatory system; Z83.3 Family history of diabetes mellitus; W18.30XA Fall on same level, unspecified, initial encounter; Y92.9 Unspecified place or not applicable
CPT/HCPCS: 36415; 72131; 80048; 83605; 85025; 85652; 86140; 87040; 96374; 96376; 99285

== ENCOUNTER → 2019-03-21 | Outpatient (CLI) | payer BC ==
[2019-03-21 12:22] LABS: Basophils # (A) 0.1 k/uL (0-0.2); Basophils % (A) 1 %; Eosinophils # (A) 0.5 k/uL (0-0.7); Eosinophils % (A) 6 %; HCT 40.4 % (39.0-53.0); HGB 13.3 gm/dL (13.0-17.5); Lymphocytes # (A) 1.6 k/uL (1.0-4.8); Lymphocytes % (A) 19 %; MCH 27.2 pg (25.0-35.0); MCHC 32.9 g/dL (31.0-37.0); MCV 82.6 fL (80.0-100.0); Mean Platelet Volume 7.3; Monocytes # (A) 0.4 k/uL (0-1.0); Monocytes % (A) 4 %; Neutrophils % (A) 68 %; Platelet Count 254 k/uL (150-450); RBC 4.89 m/uL (4.30-5.90); RDW 15.1 % (11.5-15.5); WBC 8.7 k/uL (3.8-10.6)
[2019-03-21 13:36] LABS: Erythrocyte Sedimentation Rate 13 mm/hr (0-15)
[2019-03-21 17:03] LABS: ALT 12 U/L (10-49); AST 20 U/L (14-35); African American GFR (CKD) 74.3 (60.0-200.0); BUN/Creat Ratio 18.46 Ratio (12.00-20.00); C Reactive Protein <0.4 mg/dL (0.0-0.8); Calcium 10.1 mg/dL (8.7-10.3); Chloride 105 mmol/L (96-109); Cholesterol 129 mg/dL (0-200); Glucose 206 mg/dL (70-110); LDL Cholesterol,Calculated 30.6 mg/dL (0.0-131.0); Potassium 4.1 mmol/L (3.5-5.5); Sodium 141 mmol/L (135-145)
== END | disposition home or self-care (01) ==
LOC: LABWHC1 11:15
PROVIDERS: ATTEND Nurse Practitioner Adult Health
DX: E78.2 Mixed hyperlipidemia (principal); G06.1 Intraspinal abscess and granuloma; A49.1 Streptococcal infection, unspecified site; M46.20 Osteomyelitis of vertebra, site unspecified
CPT/HCPCS: 36415; 80048; 80061; 84450; 84460; 85025; 85652; 86140

== ENCOUNTER 2019-03-22 18:49 | Emergency (ER) | payer BC ==
[2019-03-22 18:59] VITALS: TEMP 98.3
--- NOTE | 2019-03-22 19:24 | ED ---
General Adult HPI - General Chief complaint: Back Pain/Injury Stated complaint: GROIN AND BACK PAIN AND NUMBNESS Time Seen by Provider: 03/22/19 19:00 Source: patient Mode of arrival: ambulatory Limitations: no limitations - History of Present Illness Initial comments: Dictation was produced using [employer] dictation software. please excuse any grammatical, word or spelling errors. Chief Complaint: Patient is 48-year-old male presents with testicular pain. History of Present Illness: He 8-year-old male presents testicular pain. Patient states his symptoms have been ongoing for the last 2-3 days. Patient complains of cyclic pain to both testicles. He states that the pain is diffuse. Patient reports that he also has associated back pain and numbness to his lower extremities. Patient has extensive history including infection to the spine. Patient has just been weaned off antibiotics recently. He does follow patient with pain specialist and infectious disease doctor. Patient is allegedly free from infection at this time. He reports that he also has blood noted in his semen. The ROS documented in this emergency department record has been reviewed and confirmed by me. Those systems with pertinent positive or negative responses have been documented in the HPI. All other systems are other negative and/or noncontributory. PHYSICAL EXAM: General Impression: Alert and oriented x3, not in acute distress HEENT: Normocephalic atraumatic, extra-ocular movements intact, pupils equal and reactive to light bilaterally, mucous membranes moist. Cardiovascular: Heart regular rate and rhythm, S1&S2 audible, no murmurs, rubs or gallops Chest: Lungs clear to auscultation bilaterally, no rhonchi, no wheeze, no rales Abdomen: Bowel sounds present, abdomen soft, non-tender, non-distended, no organomegaly Musculoskeletal: Pulses present and equal in all extremities, no peripheral edema Motor: no focal deficits noted Neurological: CN II-XII grossly intact, no focal motor or sensory deficits noted Skin: Intact with no visualized rashes Psych: Normal affect and mood exam: Scrotum is without any abnormalities. No hard areas felt on testicle. No tenderness to palpation over the posterior bandages ED course: 48-year-old male presents with testicular pain and blood in the semen. On arrival are within acceptable limits. Physical examination is benign. Genitourinary physical exam is benign. Patient had labs drawn yesterday here at our facility. They were reviewed by myself showing no acute processes. Scrotal ultrasound was performed showing no acute processes. There are findings of small right-sided hydrocele and left-sided varicocele. No other acute findings at this time. Patient was reevaluated at bedside finally in stable condition. This point there is no clear reason for patient's testicular pain. Patient is encouraged to resume normal sexual activity. He is given referral to urology. Patient clear for discharge. Return parameters discussed. Urinalysis is unremarkable. - Related Data Home Medications Medication Instructions Recorded Confirmed Atorvastatin [Lipitor] 80 mg PO HS 11/11/18 03/22/19 Insulin NPH/Reg Insulin 70/30 5 units SQ DAILY 01/05/19 03/22/19 [humuLIN 70/30 VIAL] amLODIPine [Norvasc] 5 mg PO DAILY 01/05/19 03/22/19 glipiZIDE [Glucotrol] 10 mg PO BID 01/05/19 03/22/19 Triamterene-Hctz 37.5-25Mg 1 tab PO DAILY 01/23/19 03/22/19 [Maxzide 37.5-25] Previous Rx's Medication Instructions Recorded Carvedilol [Coreg*] 25 mg PO BID-W/MEALS #60 tab 11/12/18 Nitroglycerin Sl Tabs [Nitrostat] 0.4 mg SUBLINGUAL Q5M PRN #25 tab 11/12/18 Prasugrel [Effient] 10 mg PO DAILY #30 tab 11/12/18 hydrALAZINE HCL [Apresoline] 50 mg PO BID #60 tab 11/12/18 metFORMIN HCL [Glucophage] 1,000 mg PO AC-BID #0 11/12/18 Allergies Allergy/AdvReac Type Severity Reaction Status Date / Time vancomycin Allergy ARACELIS Verified 03/22/19 19:29 Review of Systems ROS Statement: Those systems with pertinent positive or pertinent negative responses have been documented in the HPI. ROS Other: All systems not noted in ROS Statement are negative. Past Medical History Past Medical History: Chest Pain / Angina, Diabetes Mellitus, GERD/Reflux, Hypertension, Syncope Additional Past Medical History / Comment(s): NIDDM type II, hiatal hernia, nephrolithiasis, chronic low back pain, bilateral leg numbness, R great toe diabetic foot ulcer, past left olecranon bursitis, osteomyelitis in L4-L5 w/current abx treatment via PICC line, managed by dr tran. History of Any Multi-Drug Resistant Organisms: MRSA Date of last positivie culture/infection: 12/21/16 MDRO Source:: Left axilla Past Surgical History: Appendectomy, Cholecystectomy, Heart Catheterization With Stent, Orthopedic Surgery Additional Past Surgical History / Comment(s): RENAL ANGIOGRAM 2005 for HTN, cardiac cath 2005, LT WRIST TENDON REPAIR 2013, RT ROTATOR CUFF REPAIR, bilateral knee arthroscopies, I&D L axillae. [address] Ha in December of 2018 Past Anesthesia/Blood Transfusion Reactions: No Reported Reaction Date of Last Stent Placement:: 12/2018 Past Psychological History: No Psychological Hx Reported Smoking Status: Current every day smoker Past Alcohol Use History: None Reported Past Drug Use History: None Reported - Past Family History Father Family Medical History: Coronary Artery Disease (CAD), Diabetes Mellitus, Hypertension Additional Family Medical History / Comment(s): pt. reports his father had a four vessel CABG Mother Family Medical History: Cancer, Hypertension Additional Family Medical History / Comment(s): LUNG CANCER(NON SMOKER) General Exam Limitations: no limitations Course Vital Signs 03/22/19 18:56 Temperature 98.3 F Pulse Rate 70 Respiratory 18 Rate Blood Pressure 158/95 O2 Sat by Pulse 98 Oximetry Medical Decision Making - Lab Data Lab Results 03/22/19 Range/Units 19:40 Urine Color Yellow Urine Appearance Clear (Clear) Urine pH 5.5 (5.0-8.0) Ur Specific [place] 1.011 (1.001-1.035) Urine Protein Trace H (Negative) Urine Glucose (UA) 4+ H (Negative) Urine Ketones Negative (Negative) Urine Blood Negative (Negative) Urine Nitrite Negative (Negative) Urine Bilirubin Negative (Negative) Urine Urobilinogen <2.0 (<2.0) mg/dL Ur Leukocyte Esterase Negative (Negative) Disposition Clinical Impression: Testicular pain Disposition: HOME SELF-CARE Condition: Good Instructions (If sedation given, give patient instructions): Acute Low Back Pain (ED) Is patient prescribed a controlled substance at d/c from ED?: No Referrals: Dillan Quintana MD [STAFF PHYSICIAN] - 1-2 days Time of Disposition: 21:02
[2019-03-22 20:02] LABS: Appearance,Urine Clear (Clear); Bilirubin,Urine Negative (Negative); Blood,Urine Negative (Negative); Color,Urine Yellow; Glucose,Urine (UA) 4+ (Negative); Ketones,Urine Negative (Negative); Leukocyte Esterase,Urine Negative (Negative); Nitrite,Urine Negative (Negative); PH, Urine 5.5 (5.0-8.0); Protein,Urine Trace (Negative); Specific Gravity,Urine 1.011 (1.001-1.035); Urobilinogen,Urine <2.0 mg/dL (<2.0)
--- NOTE | 2019-03-22 20:33 | US ---
EXAMINATION TYPE: US scrotum with doppler. TECHNIQUE: Grayscale and color Doppler Duplex imaging performed of the scrotum. DATE OF EXAM: 03/22/2019 COMPARISON: NONE CLINICAL HISTORY: 48-year-old male Pain. Being treated for spine infection since October; bilateral g roin, back and scrotal pain Findings: EXAM MEASUREMENTS: TESTICLES: Right Testicle: 3.5 x 3.3 x 2.8 cm Left Testicle: 2.9 x 3.6 x 1.9 cm Overall homogeneous appearance of the testicles without hyperemia. EPIDIDYMIS HEAD: Right Epididymis: 0.9 x 0.9 x 0.9 cm Left Epididymis: 1.5 x 0.9 x 0.6 cm Doppler performed to assess for testicular vascularity; good bilateral color flow and waveforms are s een. There is no evidence of testicular torsion. Presence of hydroceles: Small within the right scrotal sac = 1.3 x 1.2 x 0.8cm Presence of varicoceles: in left scrotal sac as vein is greater than 2.5mm at rest and w/ Valsalva m aneuver. IMPRESSION: 1. Small right-sided hydrocele and varicoceles on the left. 2. No evidence for testicular torsion or specific ultrasound findings of epididymoorchitis.
[2019-03-22 21:17] VITALS: BP 138/91; PULSE 63; RESP 16
== END 2019-03-22 21:15 | disposition home or self-care (01) ==
LOC: EC 18:49
DX: N50.812 Left testicular pain (principal); N50.811 Right testicular pain; I86.1 Scrotal varices; N43.3 Hydrocele, unspecified; R20.0 Anesthesia of skin; M54.9 Dorsalgia, unspecified; R36.1 Hematospermia; E11.621 Type 2 diabetes mellitus with foot ulcer; L97.519 Non-pressure chronic ulcer of other part of right foot with unspecified severity; I10 Essential (primary) hypertension; F17.200 Nicotine dependence, unspecified, uncomplicated; Z88.1 Allergy status to other antibiotic agents; Z79.4 Long term (current) use of insulin; Z79.899 Other long term (current) drug therapy; Z90.49 Acquired absence of other specified parts of digestive tract; Z95.5 Presence of coronary angioplasty implant and graft; Z86.14 Personal history of Methicillin resistant Staphylococcus aureus infection
CPT/HCPCS: 76870; 81003; 93975; 99284

== ENCOUNTER 2019-05-11 21:49 | Emergency (ER) | payer BC ==
[2019-05-11] MEDS ORDERED: MORPHINE SULFATE 4 MG/ML SYRINGE IVP STA (22:51)
[2019-05-11] MEDS ORDERED: KETOROLAC 30 MG/ML 1 ML VIAL IVP STA (22:51)
--- NOTE | 2019-05-11 23:03 | ED ---
Skin/Abscess/FB HPI - General Chief complaint: Skin/Abscess/Foreign Body Stated complaint: Foot pain Time Seen by Provider: 05/11/19 22:15 Source: patient Mode of arrival: ambulatory Limitations: no limitations - History of Present Illness Initial comments: 48-year-old male patient with past history significant for diabetes and diabetic ulcer to the right great toe presents to the emergency department today for evaluation of right toe redness, swelling, and pain. Patient states that he did remove a callus and found a wound beneath. Patient states that this is been worsening over the last 3 days. He denies any foot swelling. Denies any fever or chills. Patient states he is concerned because with the last infection he had it turned to sepsis. Patient states he is supposed to be having back surgery and needs to be infection free for 3 months. Denies any numbness or tingling to the foot. Denies any known injury. Patient denies any recent rash, shortness breath, chest pain, abdominal pain, nausea, vomiting, diarrhea, constipation, dizziness, weakness, hematuria, dysuria, urinary urgency, urinary frequency, headache, visual changes, or any other complaints. - Related Data Home Medications Medication Instructions Recorded Confirmed Atorvastatin [Lipitor] 80 mg PO HS 11/11/18 05/11/19 Insulin NPH/Reg Insulin 70/30 10 units SQ DAILY 01/05/19 05/11/19 [humuLIN 70/30 VIAL] amLODIPine [Norvasc] 5 mg PO DAILY 01/05/19 05/11/19 glipiZIDE [Glucotrol] 10 mg PO BID 01/05/19 05/11/19 Triamterene-Hctz 37.5-25Mg 1 tab PO DAILY 01/23/19 05/11/19 [Maxzide 37.5-25] Carvedilol [Coreg] 25 mg PO BID 05/11/19 05/11/19 oxyCODONE-APAP 10-325MG [Percocet 1 tab PO QID PRN 05/11/19 05/11/19 10-325 mg] Previous Rx's Medication Instructions Recorded Nitroglycerin Sl Tabs [Nitrostat] 0.4 mg SUBLINGUAL Q5M PRN #25 tab 11/12/18 Prasugrel [Effient] 10 mg PO DAILY #30 tab 11/12/18 hydrALAZINE HCL [Apresoline] 50 mg PO BID #60 tab 11/12/18 metFORMIN HCL [Glucophage] 1,000 mg PO AC-BID #0 11/12/18 Cephalexin [Keflex] 500 mg PO Q6HR #40 cap 05/11/19 Sulfamethoxazole/Trimethoprim 1 each PO BID #20 tablet 05/11/19 [Bactrim DS 800-160 mg] Allergies Allergy/AdvReac Type Severity Reaction Status Date / Time vancomycin Allergy ARACELIS Verified 05/11/19 23:06 Review of Systems ROS Statement: Those systems with pertinent positive or pertinent negative responses have been documented in the HPI. ROS Other: All systems not noted in ROS Statement are negative. Past Medical History Past Medical History: Chest Pain / Angina, Diabetes Mellitus, GERD/Reflux, Hypertension, Syncope Additional Past Medical History / Comment(s): NIDDM type II, hiatal hernia, nephrolithiasis, chronic low back pain, bilateral leg numbness, R great toe diabetic foot ulcer, past left olecranon bursitis, osteomyelitis in L4-L5 w/current abx treatment via PICC line, managed by dr tran. History of Any Multi-Drug Resistant Organisms: MRSA Date of last positivie culture/infection: 12/21/16 MDRO Source:: Left axilla Past Surgical History: Appendectomy, Cholecystectomy, Heart Catheterization With Stent, Orthopedic Surgery Additional Past Surgical History / Comment(s): RENAL ANGIOGRAM 2005 for HTN, cardiac cath 2005, LT WRIST TENDON REPAIR 2013, RT ROTATOR CUFF REPAIR, bila teral knee arthroscopies, I&D L axillae. [address] Ha in December of 2018 Past Anesthesia/Blood Transfusion Reactions: No Reported Reaction Date of Last Stent Placement:: 12/2018 Past Psychological History: No Psychological Hx Reported Smoking Status: Current every day smoker Past Alcohol Use History: None Reported Past Drug Use History: None Reported - Past Family History Father Family Medical History: Coronary Artery Disease (CAD), Diabetes Mellitus, Hypertension Additional Family Medical History / Comment(s): pt. reports his father had a fou r vessel CABG Mother Family Medical History: Cancer, Hypertension Additional Family Medical History / Comment(s): LUNG CANCER(NON SMOKER) General Exam Limitations: no limitations General appearance: alert, in no apparent distress, other (Physical well- developed, well-nourished adult male patient in no acute distress. Vital signs upon presentation are temperature 98.1F, pulse 69, respirations 16, blood pressure 185/112, pulse ox 100% on room air.) Eye exam: Present: normal appearance, PERRL, EOMI. Absent: scleral icterus, conjunctival injection, periorbital swelling ENT exam: Present: normal exam, normal oropharynx, mucous membranes moist Respiratory exam: Present: normal lung sounds bilaterally. Absent: respiratory distress, wheezes, rales, rhonchi, stridor Cardiovascular Exam: Present: regular rate, normal rhythm, normal heart sounds. Absent: systolic murmur, diastolic murmur, rubs, gallop, clicks Extremities exam: Present: full ROM, tenderness (Right great toe tenderness), normal capillary refill, other (There is redness, swelling noted to the right great toe. There is small ulcer noted to the plantar surface. No drainage. Skin is otherwise pink, warm, dry. Cap refills less than 3 seconds. Pedal pulses 2+ and equal bilaterally.). Absent: normal inspection, pedal edema, joint swelling, calf tenderness Neurological exam: Present: alert, oriented X3, CN II-XII intact Psychiatric exam: Present: normal affect, normal mood Skin exam: Present: warm, dry, intact, normal color. Absent: rash Course Vital Signs 05/11/19 05/11/19 22:09 23:19 Temperature 98.1 F Pulse Rate 69 66 Respiratory 16 18 Rate Blood Pressure 185/112 147/103 O2 Sat by Pulse 100 98 Oximetry Medical Decision Making - Medical Decision Making 48-year-old male patient presents to the emergency department today for evaluation of right great toe pain, swelling, and wound. Physical examination reveals a dry ulcer to the lateral aspect of the great toe over the plantar surface. There is also redness and swelling. Remainder of foot is unremarkable with normal pulses. Labs reviewed and are unremarkable, normal white blood cell, and x-ray of the toe was obtained and shows no evidence for osteomyelitis. I did discuss findings and results with the patient. He'll be started on antibiotics and discharged home. He is instructed to follow-up with his central communications specialist for recheck in 1-2 days. Return parameters discussed in detail. He verbalizes understanding and agrees with this plan. - Lab Data Result diagrams: 05/11/19 23:07 05/11/19 23:07 Lab Results 05/11/19 05/11/19 05/11/19 Range/Units 23:07 23:07 23:07 WBC 7.0 (3.8-10.6) k/uL RBC 4.99 (4.30-5.90) m/uL Hgb 13.7 (13.0-17.5) gm/dL Hct 41.0 (39.0-53.0) % MCV 82.2 (80.0-100.0) fL MCH 27.4 (25.0-35.0) pg MCHC 33.4 (31.0-37.0) g/dL RDW 14.2 (11.5-15.5) % Plt Count 230 (150-450) k/uL Neutrophils % 56 % Lymphocytes % 26 % Monocytes % 6 % Eosinophils % 7 % Basophils % 2 % Neutrophils # 3.9 (1.3-7.7) k/uL Lymphocytes # 1.8 (1.0-4.8) k/uL Monocytes # 0.4 (0-1.0) k/uL Eosinophils # 0.5 (0-0.7) k/uL Basophils # 0.1 (0-0.2) k/uL Sodium 139 (137-145) mmol/L Potassium 3.9 (3.5-5.1) mmol/L Chloride 100 (98-107) mmol/L Carbon Dioxide 33 H (22-30) mmol/L Anion Gap 6 mmol/L BUN 12 (9-20) mg/dL Creatinine 0.90 (0.66-1.25) mg/dL Est GFR (CKD-EPI)AfAm >90 (>60 ml/min/1.73 sqM) Est GFR (CKD-EPI)NonAf >90 (>60 ml/min/1.73 sqM) Glucose 207 H (74-99) mg/dL Plasma Lactic Acid Cb 1.5 (0.7-2.0) mmol/L Calcium 9.6 (8.4-10.2) mg/dL Total Bilirubin 0.3 (0.2-1.3) mg/dL AST 19 (17-59) U/L ALT 22 (21-72) U/L Alkaline Phosphatase 72 (38-126) U/L Total Protein 6.8 (6.3-8.2) g/dL Albumin 4.3 (3.5-5.0) g/dL - Radiology Data Radiology results: report reviewed, image reviewed Two-view x-ray of the right great toe were obtained. Report was reviewed in its entirety. Impression by Dr. Jain shows normal x-rays of the right toes. Disposition Clinical Impression: Cellulitis of right toe, Diabetic ulcer of right great toe Disposition: HOME SELF-CARE Condition: Good Instructions (If sedation given, give patient instructions): Cellulitis (ED), Diabetic Foot Ulcers (ED) Additional Instructions: Remain nonweightbearing to the toe as much as possible. Complete antibiotic prescription in full. Follow-up with your infectious disease/central communications specialist Dr. Tran as soon as possible. Follow-up with primary care physician for recheck in 1-2 days. Return to the emergency department immediately for any new, worsening, or concerning symptoms. Prescriptions: Sulfamethoxazole/Trimethoprim [Bactrim DS 800-160 mg] 1 each PO BID #20 tablet Cephalexin [Keflex] 500 mg PO Q6HR #40 cap Is patient prescribed a controlled substance at d/c from ED?: No Referrals: Anuel Peters MD [Primary Care Provider] - 1-2 days Ta Tran MD [STAFF PHYSICIAN] - 1-2 days Time of Disposition: 23:58
[2019-05-11 23:19] VITALS: PULSE 66
[2019-05-11 23:25] LABS: Basophils # (A) 0.1 k/uL (0-0.2); Basophils % (A) 2 %; Eosinophils # (A) 0.5 k/uL (0-0.7); Eosinophils % (A) 7 %; HGB 13.7 gm/dL (13.0-17.5); Lymphocytes # (A) 1.8 k/uL (1.0-4.8); Lymphocytes % (A) 26 %; MCH 27.4 pg (25.0-35.0); MCHC 33.4 g/dL (31.0-37.0); MCV 82.2 fL (80.0-100.0); Mean Platelet Volume 6.9; Monocytes # (A) 0.4 k/uL (0-1.0); Monocytes % (A) 6 %; Neutrophils # (A) 3.9 k/uL (1.3-7.7); Neutrophils % (A) 56 %; Platelet Count 230 k/uL (150-450); RBC 4.99 m/uL (4.30-5.90); RDW 14.2 % (11.5-15.5)
--- NOTE | 2019-05-11 23:28 | XR ---
EXAM: XR Right Toe(s), 2 or More Views CLINICAL HISTORY: ITS.REASON XR Reason: infection/diabetic ulcer TECHNIQUE: Frontal, lateral and oblique views of toe(s) of the right foot. COMPARISON: No relevant prior studies available. FINDINGS: Bones/joints: Unremarkable. No acute fracture. No dislocation. Soft tissues: Unremarkable. No radiopaque foreign body. IMPRESSION: Normal x-rays of the right toes.
[2019-05-11 23:35] LABS: ALT 22 U/L (21-72); AST 19 U/L (17-59); African American GFR (CKD) >90 (>60 ml/min/1.73 sqM); Albumin 4.3 g/dL (3.5-5.0); Alkaline Phosphatase 72 U/L (38-126); Anion Gap 6 mmol/L; Blood Urea Nitrogen 12 mg/dL (9-20); Calcium 9.6 mg/dL (8.4-10.2); Carbon Dioxide 33 mmol/L (22-30); Chloride 100 mmol/L (98-107); Glucose 207 mg/dL (74-99); Potassium 3.9 mmol/L (3.5-5.1); Sodium 139 mmol/L (137-145); Total Bilirubin 0.3 mg/dL (0.2-1.3); Total Protein 6.8 g/dL (6.3-8.2)
[2019-05-11] MEDS ORDERED: CEPHALEXIN 500MG STARTER PACK 4 CAP BTL PO STA (23:56)
[2019-05-11] MEDS ORDERED: SULFAMETH-TMP DS STARTER PACK 2 TAB BTL PO STA (23:56)
[2019-05-12 00:34] VITALS: BP 158/106; RESP 19; TEMP 98
== END 2019-05-12 00:32 | disposition home or self-care (01) ==
LOC: EC 21:49
DX: E11.621 Type 2 diabetes mellitus with foot ulcer (principal); L97.519 Non-pressure chronic ulcer of other part of right foot with unspecified severity; L03.031 Cellulitis of right toe; I10 Essential (primary) hypertension; F17.200 Nicotine dependence, unspecified, uncomplicated; Z79.02 Long term (current) use of antithrombotics/antiplatelets; Z79.4 Long term (current) use of insulin; Z79.899 Other long term (current) drug therapy; Z88.1 Allergy status to other antibiotic agents; Z95.5 Presence of coronary angioplasty implant and graft
CPT/HCPCS: 36415; 80053; 83605; 85025; 73660; 99283; 96374; 96375; J2270; J1885

== ENCOUNTER → 2019-07-22 | Outpatient (CLI) | payer BC ==
[2019-07-22 17:41] LABS: Basophils # (A) 0.1 k/uL (0-0.2); Basophils % (A) 1 %; Eosinophils # (A) 0.5 k/uL (0-0.7); Eosinophils % (A) 7 %; HCT 42.6 % (39.0-53.0); HGB 13.6 gm/dL (13.0-17.5); Lymphocytes # (A) 1.7 k/uL (1.0-4.8); Lymphocytes % (A) 25 %; MCH 27.4 pg (25.0-35.0); MCV 85.7 fL (80.0-100.0); Monocytes # (A) 0.4 k/uL (0-1.0); Monocytes % (A) 5 %; Neutrophils % (A) 60 %; Platelet Count 259 k/uL (150-450); RBC 4.97 m/uL (4.30-5.90); RDW 13.7 % (11.5-15.5); WBC 6.7 k/uL (3.8-10.6)
[2019-07-22 22:17] LABS: Erythrocyte Sedimentation Rate 6 mm/hr (0-15)
== END | disposition home or self-care (01) ==
LOC: LABWHC1 17:01
PROVIDERS: ATTEND Orthopaedic Surgery Orthopaedic Surgery of the Spine
DX: M51.36 Other intervertebral disc degeneration, lumbar region (principal); M48.062 Spinal stenosis, lumbar region with neurogenic claudication; M43.16 Spondylolisthesis, lumbar region; M54.5 Low back pain
CPT/HCPCS: 36415; 85025; 85652; 86140

== ENCOUNTER → 2019-07-28 | Outpatient (CLI) | payer BC ==
--- NOTE | 2019-07-28 12:19 | MR ---
EXAMINATION TYPE: MR lumbar spine wo con DATE OF EXAM: 07/28/2019 COMPARISON: Prior lumbar MRI dated 08/05/2018, 01/27/2019 HISTORY: Lumbar pain TECHNIQUE: Multiplanar, multisequence images of the lumbar spine were acquired. L1-L2: Normal disc appearance without desiccation. No herniation, protrusion or disc bulging. No ca nal stenosis is present. Foramina are patent bilaterally. L2-L3: Minimal posterior disc bulge causes only slight anterior mass effect on the thecal sac. No sig nificant central stenosis or foraminal encroachment. L3-L4: Circumferential posterior disc bulge causes anterior mass effect on the thecal sac. Similar fi ndings to prior exam. There is no significant foraminal encroachment or spinal stenosis. L4-L5: Posterior broad-based disc bulge causes minimal anterior mass effect on the thecal sac. Facet arthropathy with ligamentum flavum is noted causing some minimal posterior lateral mass effect on the thecal sac as on prior. Circumferential extension of endplate disc complex results in some right-faheem ed foraminal encroachment, there is lateral disc herniation. L5-S1: Posterior disc bulge is again noted possibly contacting the proximal S1 nerve roots. No signif icant central stenosis or foraminal encroachment on the left, mild right-sided foraminal encroachment . There is facet arthropathy change present. Lumbar segments are intact. No paraspinal masses are identified. Conus medullaris has a normal appe arance. There is stable alignment, minimal retrolisthesis grade 1 L5-S1, L3-4 with associated loss of disc height signal L3-4, L5-S1 and associated vacuum phenomenon. Cortical cysts associated with the right kidney is stable. T2 intense focus associated with the right adrenal gland is stable. IMPRESSION: Stable exam
== END | disposition home or self-care (01) ==
LOC: RADMRIMAIN 07:04
PROVIDERS: ATTEND Orthopaedic Surgery Orthopaedic Surgery of the Spine
DX: M48.062 Spinal stenosis, lumbar region with neurogenic claudication (principal); M43.16 Spondylolisthesis, lumbar region; M51.36 Other intervertebral disc degeneration, lumbar region
CPT/HCPCS: 72148

== ENCOUNTER → 2019-08-28 | Outpatient (CLI) | payer BC ==
[2019-08-28 17:28] LABS: HCT 40.5 % (39.0-53.0); HGB 13.5 gm/dL (13.0-17.5); MCH 28.8 pg (25.0-35.0); MCHC 33.4 g/dL (31.0-37.0); MCV 86.4 fL (80.0-100.0); Mean Platelet Volume 6.3; Platelet Count 231 k/uL (150-450); RBC 4.68 m/uL (4.30-5.90); RDW 13.6 % (11.5-15.5); WBC 6.7 k/uL (3.8-10.6)
[2019-08-28 17:36] LABS: African American GFR (CKD) >90 (>60 ml/min/1.73 sqM); Anion Gap 8 mmol/L; Blood Urea Nitrogen 16 mg/dL (9-20); Carbon Dioxide 31 mmol/L (22-30); Chloride 102 mmol/L (98-107); Glucose 190 mg/dL (74-99); Non-African American GFR(CKD) >90 (>60 ml/min/1.73 sqM); Potassium 3.7 mmol/L (3.5-5.1); Sodium 141 mmol/L (137-145)
== END | disposition home or self-care (01) ==
LOC: LABPAT 17:00
PROVIDERS: ATTEND Internal Medicine Interventional Cardiology
DX: Z01.812 Encounter for preprocedural laboratory examination (principal); I25.10 Atherosclerotic heart disease of native coronary artery without angina pectoris; E78.2 Mixed hyperlipidemia
CPT/HCPCS: 36415; 80051; 82565; 82947; 84520; 85027

== ENCOUNTER 2019-09-02 08:09 | Day surgery (SDC) | payer BC ==
[~2019-09-02 08:09] MED LIST changes: +ALPRAZolam 0.5 MG TAB PO PRN; +ASPIRIN 325 MG TAB PO ONE; -ASPIRIN 325 MG TAB PO STA; +ATORVASTATIN 80 MG TAB PO ONE; -ATORVASTATIN 80 MG TAB PO STA
[2019-09-02 09:06] LABS: Glucose,Whole Blood 198 mg/dL (75-99)
[2019-09-02] MEDS ORDERED: HEPARIN SODIUM 1,000 UN/ML (10ML VL) ONE (09:11)
[2019-09-02] MEDS ORDERED: VERAPAMIL 2.5 MG/ML 2 ML AMP ONE (09:11)
[2019-09-02] MEDS ORDERED: fentaNYL (PF) 50 MCG/ML 2 ML AMP ONE (09:11)
[2019-09-02] MEDS ORDERED: LIDOCAINE 1% INJ 10MG/ML (20 ML MDV) ONE (09:11)
[2019-09-02] MEDS ORDERED: fentaNYL (PF) 50 MCG/ML 2 ML AMP IVP ONE (09:39)
[2019-09-02] MEDS ORDERED: LIDOCAINE 1% INJ 10MG/ML (20 ML MDV) SQ ONE (09:43)
[2019-09-02] MEDS ORDERED: VERAPAMIL SYRINGE (5 MG/10 ML) INTRAARTER ONE (09:45)
[2019-09-02] MEDS ORDERED: MIDAZOLAM 2 MG/2 ML VIAL IVP ONE (09:50)
[2019-09-02] MEDS ORDERED: BIVALIRUDIN 250 MG in SODIUM CHLORIDE 0.9% 50 ML IV ONE ×2 (09:50→10:35)
[2019-09-02] MEDS ORDERED: BIVALIRUDIN BOLUS 250 MG/50 ML IV ONE (09:50)
[2019-09-02] MEDS ORDERED: IOPAMIDOL-370 100ML BTL INJ ONE ×2 (10:20→10:43)
[2019-09-02] MEDS ORDERED: NITROGLYCERIN 1000MCG/10ML SYRINGE INTRACORON ONE (10:28)
[2019-09-02] MEDS ORDERED: ZOLPIDEM 5 MG TAB PO PRN (11:00)
[2019-09-02] MEDS ORDERED: NITROGLYCERIN SL TABS 0.4 MG TAB SUBLINGUAL PRN (11:00)
[2019-09-02] MEDS ORDERED: ATROPINE SULFATE 0.1 MG/ML 10ML SYRINGE IV PRN (11:00)
[2019-09-02] MEDS ORDERED: RX INFO: IV CONTRAST WAS GIVEN 1 EACH MISC MISCELLANE PRN (11:00)
[2019-09-02] MEDS ORDERED: SODIUM CHLORIDE 0.9% 1,000 ML IV SCH (11:00)
[2019-09-02] MEDS ORDERED: MAG HYDROX/AL HYDROX/SIMETH 30 ML CUP PO PRN (11:00)
--- NOTE | 2019-09-02 11:46 | CC ---
CARDIAC CATHETERIZATION REPORT Mr. Gonzalez is a 48-year-old male with known history of coronary artery disease, status post LAD and right coronary artery stenting in November of 2018, history of hypertension, hyperlipidemia, diabetes mellitus, and a prior history of smoking, who has been scheduled to undergo back surgery. He underwent a myocardial perfusion imaging that revealed evidence of inducible ischemia involving the inferolateral wall. In view of that, recommendation was made regarding cardiac catheterization. The procedure as well as the risks and the complications were discussed with the patient who is in full understanding and agreement. PROCEDURE: Patient was brought to labor expediter in a fasting semi-sedated state after receiving fentanyl and Benadryl and achieving moderate conscious sedated state. Using Xylocaine anesthesia in the Seldinger technique, a 6-[place] sheath was introduced in the right radial artery. Selective right and left coronary angiography was performed using 5- [place] 3.5 bend right and left Miri catheter. Multiple views of the coronary artery including hemiaxial views obtained, the right Miri catheter was used to cross the aortic valve and left ventricular end-diastolic pressure was calculated. Following that, catheters were removed. Images were reviewed. FINDINGS: LEFT MAIN: This is a short size vessel bifurcating left circumflex, left anterior descending artery. Left main coronary artery has no evidence of high-grade stenosis. LEFT ANTERIOR DESCENDING ARTERY: This is a large-sized vessel reaching toward the apex, tapers down into the distal third calcified proximally. The stented segment in the mid LAD is patent. There is a 10% to 20% in-stent restenosis. The first diagonal branch has a 50% to 60% plaque at the takeoff. The rest of the vessel has no high-grade stenosis. LEFT CIRCUMFLEX: This is a small nondominant vessel giving rise to one obtuse marginal branch. Prior to the takeoff of the obtuse marginal branch, there is 95% to 99% stenosis. The rest of the vessel is small in caliber. RIGHT CORONARY ARTERY: This is a large dominant vessel bifurcating distally PDA and posterolateral segment and branches. The right coronary artery and stented segment in the mid area has a 95% to 99% stenosis. There is another plaque in the mid segment of about 70% and another plaque of 50% distally prior to the bifurcation. The stented segment in the PLV is patent with no evidence of in-stent restenosis. LEFT VENTRICULOGRAM: Left ventriculogram was not performed. HEMODYNAMICS: There was no gradient across the aortic valve. The left ventricular end-diastolic pressure was 20 mmHg. CONCLUSION: 1. Significant in-stent restenosis of the RCA with a plaque distal to the stent of significant severity. 2. Severe stenosis in the the obtuse marginal branch with a small caliber beyond it. 3. Moderate disease in the first diagonal branch with mild disease in the LAD. RECOMMENDATION: In view of finding anatomy, I recommend proceeding with angioplasty and stenting of the right coronary artery. The procedure as well as the risks and the complications were discussed with the patient who is in full understanding and agreement. MMODL / IJN: [id number] /
--- NOTE | 2019-09-02 11:57 | PTCA ---
PERCUTANEOUSTRANS CORORONARY ANGIOGRAPHY Mr. Gonzalez is a 48-year-old male with known history of coronary artery disease, hypertension, hyperlipidemia, diabetes mellitus, who had an abnormal myocardial perfusion imaging, underwent cardiac catheterization, was found to have significant obstructive disease in the stented segment of the right coronary artery and distal to it. In view of that, recommendation was made regarding angioplasty and stenting. The procedures, risks, and complication were discussed with the patient who is in full understanding and agreement. PROCEDURE: A 6-Yoruba FR4 guiding catheter introduced into the system after cannulating the right coronary ostium, a 0.014 balanced medium weight J-wire was advanced and positioned distally. Then a 3.0 x 12 mm Trek balloon was advanced and 2 inflations maximum of 10 atmospheres were done. Following that, the balloon was removed and an intravascular ultrasound catheter was introduced and imaging was performed. Following that, the ultrasound was removed and a 4.0 x 28 mm Xience Ashley stent was advanced, deployed and post-dilated at 16 atmospheres. Following that, the balloon was removed and a 4.0 x 12 mm Xience Ashley stent was deployed proximal to the first one and postdilated at 16 atmospheres. Following that, the intravascular ultrasound catheter was reintroduced and other images were obtained to optimize the stented segment. After removing the ultrasound catheter, a 4.5 x 12 mm NC Trek balloon was advanced and multiple inflations maximum of 12 atmospheres were done. After the last inflation, after appropriate wait, the balloon and the guidewire were withdrawn back in the guiding catheter. Images were obtained and repeated. Those images reveal stable successful stenting. At that point, the guiding catheter, the balloon and the guidewire were removed. The sheath was removed. Hemostasis was obtained with deployment of a TR band. There was no immediate complication. Patient is returned to his room in stable condition. Of note, patient received Angiomax per protocol and was continued on Effient. He had shoulder and arm discomfort with the inflation that resulted in procedure. RESULTS: Successful stenting of a long segment of the mid right coronary artery with reduction of stenosis from 95% to 0%. Optimized by intravascular ultrasound. RECOMMENDATION: 1. Patient will be continued on aspirin, Effient, beta blockers and statin. The importance of dual antiplatelet treatment was discussed with the patient and his family and they are in full understanding and agreement. 2. 3. Duration of procedure 59 minutes. MMODL / IJN: [id number] /
--- NOTE | 2019-09-02 12:00 | LTR ---
DATE OF SERVICE: 09/02/2019 RE: Jeet Gonzalez Dear Dr. Peters; I had the pleasure to perform cardiac catheterization on Mr. Gonzalez at [facility] on September 02, 2019 and a full copy of the procedure note will be forwarded to you. In brief, he was found to have severe in-stent restenoses in the right coronary artery and the lesion beyond that. Underwent successful stenting of that vessel with intravascular ultrasound guidance. I am hopeful that this procedure will stabilize his status and thank you again for allowing me to participate in this patient's care. Please feel free to call for any questions. Sincerely yours, MD SHERIF ReynaL / PAULN: [id number] /
[2019-09-02] MEDS: oxyCODONE-APAP 10-325MG 1 EACH TAB PO PRN ×3 (12:36→23:53)
[2019-09-02 17:57] LABS: Glucose,Whole Blood 270 mg/dL (75-99)
[2019-09-02] MEDS: glipiZIDE 10 MG TAB PO SCH (18:09)
[2019-09-02] MEDS: CARVEDILOL 12.5 MG TAB PO SCH (18:10)
[2019-09-02 20:44] LABS: Glucose,Whole Blood 279 mg/dL (75-99)
[2019-09-02] MEDS: hydrALAZINE HCL 50 MG TAB PO SCH (20:49)
[2019-09-02] MEDS ORDERED: ATORVASTATIN 80 MG TAB PO SCH (21:00)
[2019-09-03 05:52] LABS: Glucose,Whole Blood 113 mg/dL (75-99)
[2019-09-03] MEDS: glipiZIDE 10 MG TAB PO SCH (06:21)
[2019-09-03] MEDS: oxyCODONE-APAP 10-325MG 1 EACH TAB PO PRN ×2 (06:24→12:00)
[2019-09-03 06:58] LABS: African American GFR (CKD) >90 (>60 ml/min/1.73 sqM); Anion Gap 7 mmol/L; Blood Urea Nitrogen 17 mg/dL (9-20); Calcium 9.1 mg/dL (8.4-10.2); Carbon Dioxide 29 mmol/L (22-30); Chloride 106 mmol/L (98-107); Glucose 106 mg/dL (74-99); Non-African American GFR(CKD) >90 (>60 ml/min/1.73 sqM); Potassium 3.5 mmol/L (3.5-5.1); Sodium 142 mmol/L (137-145)
[2019-09-03] MEDS: CARVEDILOL 12.5 MG TAB PO SCH (07:40)
[2019-09-03 07:45] VITALS: BP 148/88; PULSE 53; RESP 16; TEMP 98.8
[2019-09-03] MEDS ORDERED: ASPIRIN 81 MG PO SCH (09:00)
[2019-09-03] MEDS ORDERED: PRASUGREL 10 MG TAB PO SCH ×2 (09:00→12:00)
[2019-09-03] MEDS ORDERED: INSULN ASP PRT/INSULIN ASPART 100 UNIT/ML 10 ML VIAL SQ SCH (09:00)
[2019-09-03] MEDS ORDERED: amLODIPine 5 MG TAB PO SCH (09:00)
[2019-09-03] MEDS ORDERED: TRIAMTERENE-HCTZ 37.5-25MG 1 EACH TAB PO SCH (09:00)
--- NOTE | 2019-09-03 09:02 | PN ---
PROGRESS NOTE Mr. Gonzalez is a 48-year-old male with known history of coronary artery disease who underwent a cardiac catheterization yesterday because of an abnormal myocardial perfusion imaging and was found to have severe obstructive disease in the right coronary artery, underwent stenting of that vessel. He is doing well this morning. His breathing has been stable. He denies any symptoms of chest pain. He denies any dizziness or palpitation. He continues to be on aspirin 81 mg daily, amlodipine 5 mg daily, Lipitor 80 mg daily, Coreg 25 mg twice a day, glipizide, hydralazine 50 mg twice a day, Effient 10 mg daily, and Dyazide once a day. PHYSICAL EXAMINATION: Blood pressure 136/80 with heart rate in the 50s. LUNGS: Clear. HEART: Regular rate and rhythm. S1, S2. No S3. No rub. ABDOMEN: Soft, nontender. EXTREMITIES: No edema. Right radial pulse intact. LAB DATA: Lab data revealed BUN and creatinine 17 and 0.8, potassium 3.5. EKG shows no acute changes. IMPRESSION: 1. Status post stenting of the right coronary artery. 2. History of multivessel disease. 3. Hypertension. 4. Hyperlipidemia. 5. Diabetes mellitus. RECOMMENDATION: Patient should be able to be discharged home today and followed as an outpatient. MMODL / IJN: [id number] /
[2019-09-03] MEDS: hydrALAZINE HCL 50 MG TAB PO SCH (10:11)
[2019-09-03 10:37] VITALS: BMI 28.0
[2019-09-03 11:43] LABS: Glucose,Whole Blood 218 mg/dL (75-99)
== END 2019-09-03 13:54 | disposition home or self-care (01) ==
LOC: CATHCVL 08:09 → 3SCARD 10:42 → CATHCVL 09-03 13:54
PROVIDERS: ATTEND Internal Medicine Interventional Cardiology
DX: I25.10 Atherosclerotic heart disease of native coronary artery without angina pectoris (principal); T82.855A Stenosis of coronary artery stent, initial encounter; I10 Essential (primary) hypertension; E11.9 Type 2 diabetes mellitus without complications; E78.2 Mixed hyperlipidemia; F17.210 Nicotine dependence, cigarettes, uncomplicated; Z79.82 Long term (current) use of aspirin; Z79.4 Long term (current) use of insulin; Z79.02 Long term (current) use of antithrombotics/antiplatelets; Z79.899 Other long term (current) drug therapy; Z82.49 Family history of ischemic heart disease and other diseases of the circulatory system
CPT/HCPCS: 93458; 85347; 80048; C9600; C1769; C1887; C1725 ×2; C1753; C1874; J2250; J2001; J3010; J0583; Q9967

== ENCOUNTER 2019-09-14 17:25 | Observation (INO) | payer BC ==
[2019-09-14] MEDS ORDERED: ASPIRIN 81 MG PO STA (17:58)
[2019-09-14] MEDS ORDERED: NITROGLYCERIN OINT 1 INCH/GM PACKET TOPICAL STA (17:58)
--- NOTE | 2019-09-14 18:06 | ED ---
General Adult HPI - General Chief complaint: Chest Pain Stated complaint: Chest pain, trouble breathing Time Seen by Provider: 09/14/19 17:30 Source: patient, RN notes reviewed, old records reviewed Mode of arrival: ambulatory Limitations: no limitations - History of Present Illness Initial comments: This a 48-year-old male who comes in complaining of chest pain intermittently for the last few hours. Patient states the pain radiates to his left shoulder and he became short of breath with it as well. Patient also states he was somewhat diaphoretic when this occurred. Patient states she had a stent about a week and a half ago. Patient states he also has diabetes hypertension high cholesterol. Patient states he is a smoker. Patient states he took 2 nitros at home and the pain is much better. Patient denies any headache patient denies numbness weakness. Patient denies any lightheadedness or dizziness. Patient states right now there is a very slight chest pain but it's much improved from earlier. - Related Data Home Medications Medication Instructions Recorded Confirmed Atorvastatin [Lipitor] 80 mg PO HS 11/11/18 09/02/19 Insulin NPH/Reg Insulin 70/30 20 units SQ DAILY 01/05/19 09/02/19 [humuLIN 70/30 VIAL] amLODIPine [Norvasc] 5 mg PO DAILY 01/05/19 09/02/19 glipiZIDE [Glucotrol] 10 mg PO BID 01/05/19 09/02/19 Triamterene-Hctz 37.5-25Mg 1 tab PO DAILY 01/23/19 09/02/19 [Maxzide 37.5-25] Carvedilol [Coreg] 25 mg PO BID 05/11/19 09/02/19 oxyCODONE-APAP 10-325MG [Percocet 1 tab PO QID PRN 05/11/19 09/02/19 10-325 mg] Previous Rx's Medication Instructions Recorded Nitroglycerin Sl Tabs [Nitrostat] 0.4 mg SUBLINGUAL Q5M PRN #25 tab 11/12/18 Prasugrel [Effient] 10 mg PO DAILY #30 tab 11/12/18 hydrALAZINE HCL [Apresoline] 50 mg PO BID #60 tab 11/12/18 metFORMIN HCL [Glucophage] 1,000 mg PO AC-BID #0 11/12/18 Aspirin 81 mg PO DAILY chew 09/03/19 Allergies Allergy/AdvReac Type Severity Reaction Status Date / Time vancomycin Allergy ARACELIS Verified 09/14/19 17:29 Review of Systems ROS Statement: Those systems with pertinent positive or pertinent negative responses have been documented in the HPI. ROS Other: All systems not noted in ROS Statement are negative. Past Medical History Past Medical History: Chest Pain / Angina, Diabetes Mellitus, GERD/Reflux, Hypertension, Syncope Additional Past Medical History / Comment(s): NIDDM type II, hiatal hernia, nephrolithiasis, chronic low back pain, bilateral leg numbness, R great toe diabetic foot ulcer, past left olecranon bursitis, osteomyelitis in L4-L5 w/abx treatment via PICC line (2018), managed by dr tran. History of Any Multi-Drug Resistant Organisms: MRSA Date of last positivie culture/infection: 12/21/16 MDRO Source:: Left axilla, BACK AND FACE Past Surgical History: Appendectomy, Cholecystectomy, Heart Catheterization, Heart Catheterization With Stent, Orthopedic Surgery Additional Past Surgical History / Comment(s): RENAL ANGIOGRAM 2005 for HTN, cardiac cath 2005, LT WRIST TENDON REPAIR 2013, RT ROTATOR CUFF REPAIR, bilateral knee arthroscopies, I&D L axillae, PICC LINES REMOVED. [address] Ha in December of 2018 Past Anesthesia/Blood Transfusion Reactions: No Reported Reaction Date of Last Stent Placement:: 12/2018 Past Psychological History: No Psychological Hx Reported Smoking Status: Current some day smoker Past Alcohol Use History: None Reported Past Drug Use History: None Reported - Past Family History Father Family Medical History: Coronary Artery Disease (CAD), Diabetes Mellitus, Hypertension Additional Family Medical History / Comment(s): pt. reports his father had a four vessel CABG Mother Family Medical History: Cancer, Hypertension Additional Family Medical History / Comment(s): LUNG CANCER(NON SMOKER) General Exam - General Exam Comments Initial Comments: GENERAL: Patient is well-developed and well-nourished. Patient is nontoxic and well- hydrated and is in mild distress. ENT: Neck is soft and supple. No significant lymphadenopathy is noted. Oropharynx is clear. Moist mucous membranes. Neck has full range of motion without eliciting any pain. EYES: The sclera were anicteric and conjunctiva were pink and moist. Extraocular movements were intact and pupils were equal round and reactive to light. Eyelids were unremarkable. PULMONARY: Unlabored respirations. Good breath sounds bilaterally. No audible rales rhonchi or wheezing was noted. CARDIOVASCULAR: There is a regular rate and rhythm without any murmurs gallops or rubs. ABDOMEN: Soft and nontender with normal bowel sounds. SKIN: Skin is clear with no lesions or rashes and otherwise unremarkable. NEUROLOGIC: Patient is alert and oriented x3. Cranial nerves II through XII are grossly intact. Motor and sensory are also intact. Normal speech, volume and content. Symmetrical smile. MUSCULOSKELETAL: Normal extremities with adequate strength and full range of motion. No lower extremity swelling or edema. No calf tenderness. LYMPHATICS: No significant lymphadenopathy is noted PSYCHIATRIC: Normal psychiatric evaluation. Limitations: no limitations Course Vital Signs 09/14/19 09/14/19 09/14/19 17:29 17:31 18:31 Temperature 97.7 F 97.7 F 97.7 F Pulse Rate 91 80 59 L Respiratory 18 18 18 Rate Blood Pressure 170/100 157/99 135/80 O2 Sat by Pulse 97 97 97 Oximetry Medical Decision Making - Medical Decision Making EKG shows normal sinus rhythm at 60 bpm NV interval 276 Benji's 118 QT interval is 440 QTC is 440. Patient's EKG shows no ST segment elevation or depression. Chest x-ray shows no acute abnormality. I put the patient on heparin secondary to his unstable angina. I called Dr. Noe Hernandez accepted the admission. I consult cardiology I continue the heparin and aspirin Nitropaste on the floor. I repeated troponins. - Lab Data Result diagrams: 09/14/19 17:47 09/14/19 17:47 Lab Results 09/14/19 09/14/19 09/14/19 Range/Units 17:47 17:47 17:47 WBC 7.9 (3.8-10.6) k/uL RBC 5.41 (4.30-5.90) m/uL Hgb 15.4 (13.0-17.5) gm/dL Hct 44.8 (39.0-53.0) % MCV 82.9 (80.0-100.0) fL MCH 28.4 (25.0-35.0) pg MCHC 34.3 (31.0-37.0) g/dL RDW 13.1 (11.5-15.5) % Plt Count 273 (150-450) k/uL Neutrophils % 63 % Lymphocytes % 24 % Monocytes % 5 % Eosinophils % 5 % Basophils % 1 % Neutrophils # 5.0 (1.3-7.7) k/uL Lymphocytes # 1.9 (1.0-4.8) k/uL Monocytes # 0.4 (0-1.0) k/uL Eosinophils # 0.4 (0-0.7) k/uL Basophils # 0.1 (0-0.2) k/uL Sodium 140 (137-145) mmol/L Potassium 3.7 (3.5-5.1) mmol/L Chloride 98 (98-107) mmol/L Carbon Dioxide 30 (22-30) mmol/L Anion Gap 12 mmol/L BUN 17 (9-20) mg/dL Creatinine 0.89 (0.66-1.25) mg/dL Est GFR (CKD-EPI)AfAm >90 (>60 ml/min/1.73 sqM) Est GFR (CKD-EPI)NonAf >90 (>60 ml/min/1.73 sqM) Glucose 242 H (74-99) mg/dL Calcium 10.4 H (8.4-10.2) mg/dL Magnesium 1.6 (1.6-2.3) mg/dL Total Bilirubin 0.8 (0.2-1.3) mg/dL AST 29 (17-59) U/L ALT 27 (21-72) U/L Alkaline Phosphatase 102 (38-126) U/L Troponin I <0.012 (0.000-0.034) ng/mL Total Protein 8.7 H (6.3-8.2) g/dL Albumin 5.2 H (3.5-5.0) g/dL Critical Care Time Critical Care Time: Yes Total Critical Care Time: 35 Disposition Clinical Impression: Unstable angina pectoris Disposition: ADMITTED IP TO THIS HOSP Referrals: Anuel Peters MD [Primary Care Provider] - 1-2 days Time of Disposition: 19:15
[2019-09-14] MEDS ORDERED: HYDROmorphone 0.5 MG/0.5 ML SYRINGE IVP STA (18:14)
[2019-09-14] MEDS ORDERED: KETOROLAC 30 MG/ML 1 ML VIAL IVP STA (18:14)
[2019-09-14 18:15] LABS: Basophils # (A) 0.1 k/uL (0-0.2); Basophils % (A) 1 %; Eosinophils # (A) 0.4 k/uL (0-0.7); Eosinophils % (A) 5 %; HCT 44.8 % (39.0-53.0); HGB 15.4 gm/dL (13.0-17.5); Lymphocytes # (A) 1.9 k/uL (1.0-4.8); Lymphocytes % (A) 24 %; MCH 28.4 pg (25.0-35.0); MCHC 34.3 g/dL (31.0-37.0); MCV 82.9 fL (80.0-100.0); Mean Platelet Volume 6.6; Monocytes # (A) 0.4 k/uL (0-1.0); Monocytes % (A) 5 %; Neutrophils % (A) 63 %; Platelet Count 273 k/uL (150-450); RBC 5.41 m/uL (4.30-5.90); RDW 13.1 % (11.5-15.5); WBC 7.9 k/uL (3.8-10.6)
--- NOTE | 2019-09-14 18:20 | XR ---
EXAMINATION TYPE: XR chest 2V DATE OF EXAM: 09/14/2019 COMPARISON: 01/05/2019 HISTORY: Chest pain and shortness of breath TECHNIQUE: Frontal and lateral views of the chest are obtained. FINDINGS: There is no focal air space opacity, pleural effusion, or pneumothorax seen. The cardiac silhouette size is within normal limits. The osseous structures are intact. Mild multilevel degener ative change of the spine. IMPRESSION: No acute cardiopulmonary process.
[2019-09-14 18:55] LABS: ALT 27 U/L (21-72); AST 29 U/L (17-59); African American GFR (CKD) >90 (>60 ml/min/1.73 sqM); Albumin 5.2 g/dL (3.5-5.0); Alkaline Phosphatase 102 U/L (38-126); Anion Gap 12 mmol/L; Blood Urea Nitrogen 17 mg/dL (9-20); Calcium 10.4 mg/dL (8.4-10.2); Carbon Dioxide 30 mmol/L (22-30); Chloride 98 mmol/L (98-107); Glucose 242 mg/dL (74-99); Magnesium 1.6 mg/dL (1.6-2.3); Non-African American GFR(CKD) >90 (>60 ml/min/1.73 sqM); Potassium 3.7 mmol/L (3.5-5.1); Sodium 140 mmol/L (137-145); Total Bilirubin 0.8 mg/dL (0.2-1.3); Total Protein 8.7 g/dL (6.3-8.2)
[2019-09-14] MEDS ORDERED: HEPARIN SODIUM,PORCINE 5,000 UNIT/ML 1 ML VIAL IV ONE (19:01)
[2019-09-14] MEDS ORDERED: HEPARIN SOD,PORK IN 0.45% NACL 25,000 UNIT in 0.45% NACL 1 250ML.BAG IV SCH (19:15)
[2019-09-14] MEDS ORDERED: NITROGLYCERIN SL TABS 0.4 MG TAB SUBLINGUAL PRN (19:16)
[2019-09-14 19:59] LABS: INR 0.9 (<1.2); Prothrombin Time 9.6 sec (9.0-12.0)
[2019-09-14 21:16] LABS: Glucose,Whole Blood 217 mg/dL (75-99)
[2019-09-14] MEDS ORDERED: ATORVASTATIN 80 MG TAB PO SCH (22:15)
[2019-09-14] MEDS: INSULIN ASPART (NovoLOG) 100 UNIT/ML VIAL SQ SCH (22:15)
[2019-09-14] MEDS: hydrALAZINE HCL 50 MG TAB PO SCH (22:16)
[2019-09-14] MEDS: oxyCODONE-APAP 10-325MG 1 EACH TAB PO PRN (22:16)
[2019-09-14] MEDS: CARVEDILOL 12.5 MG TAB PO SCH (22:16)
[2019-09-14] MEDS: NITROGLYCERIN OINT 1 INCH/GM PACKET TOPICAL SCH (23:36)
[2019-09-15 06:07] LABS: Glucose,Whole Blood 138 mg/dL (75-99)
[2019-09-15] MEDS: INSULIN ASPART (NovoLOG) 100 UNIT/ML VIAL SQ SCH ×2 (06:12→12:18)
[2019-09-15] MEDS: CARVEDILOL 12.5 MG TAB PO SCH (06:13)
[2019-09-15] MEDS: NITROGLYCERIN OINT 1 INCH/GM PACKET TOPICAL SCH ×2 (06:13→12:17)
[2019-09-15 08:03] LABS: Cholesterol 100 mg/dL (<200); HDL Cholesterol 34 mg/dL (40-60); LDL Cholesterol,Calculated 39 mg/dL (0-99); Triglycerides 135 mg/dL (<150)
[2019-09-15 08:32] VITALS: RESP 20
[2019-09-15] MEDS ORDERED: ASPIRIN 325 MG TAB PO SCH (09:00)
--- NOTE | 2019-09-15 10:19 | P.CRDCN ---
History of Present Illness Consult date: 09/15/19 Requesting physician: Ras Hernandez Consult reason: chest pain Chief complaint: Chest pain History of present illness: This is a 48-year-old gentleman who follows with Dr. Ha in the of [facility]. He has a known history of diabetes, hypertension, hyperlipidemia, family history of premature coronary artery disease, nicotine dependence, coronary artery disease, patient underwent LAD stenting in November 2018, history also of proximal RCA stenting, mid PLV stenting and proximal PLV stenting in November 2018, and most recently last month, on the patient was found to have significant in-stent restenosis of the RCA and severe stenosis in the obtuse marginal branch with moderate disease in the first diagonal and mild disease in the LAD subsequently patient underwent successful stenting of a long segment of the mid right coronary artery with reduction in stenosis from 95% to 0. He presents back to the hospital on this admission with symptoms of chest discomfort. According to the patient, he developed a sharp stabbing chest pain that felt like a knife in his chest, he did state that he took a sublingual nitroglycerin with some relief of the symptoms, approximately half hour later patient again developed symptoms and came to the hospital for further evaluation. He does state that over the weekend he has also developed a cold, he has a runny nose, sore throat, chills, and mild aching generalized. White blood cell count 7.9, hemoglobin 15.4, platelet count 273. Sodium 140, potassium 3.7, BUN 17, creatinine 0.8. Magnesium 1.6. Troponins negative 3. At the time of my examination this morning, patient does state that he has some mild discomfort in the left upper chest and left arm, he describes it as a sharp pain, worsens with movement of the arm. EKG shows normal sinus rhythm with left ventricular hypertrophy and nonspecific ST-T wave changes. Chest x-ray does not reveal any acute process. Past Medical History Past Medical History: Chest Pain / Angina, Diabetes Mellitus, GERD/Reflux, Hypertension, Syncope Additional Past Medical History / Comment(s): NIDDM type II, hiatal hernia, nephrolithiasis, chronic low back pain, bilateral leg numbness, R great toe diabetic foot ulcer, past left olecranon bursitis, osteomyelitis in L4-L5 w/abx treatment via PICC line (2018), managed by dr chelsea. History of Any Multi-Drug Resistant Organisms: MRSA Date of last positivie culture/infection: 12/21/16 MDRO Source:: Left axilla, BACK AND FACE Past Surgical History: Appendectomy, Cholecystectomy, Heart Catheterization, Heart Catheterization With Stent, Orthopedic Surgery Additional Past Surgical History / Comment(s): RENAL ANGIOGRAM 2005 for HTN, cardiac cath 2005, LT WRIST TENDON REPAIR 2013, RT ROTATOR CUFF REPAIR, bilateral knee arthroscopies, I&D L axillae, PICC LINES REMOVED. [address] Ha in December of 2018 Past Anesthesia/Blood Transfusion Reactions: No Reported Reaction Date of Last Stent Placement:: 12/2018 Past Psychological History: No Psychological Hx Reported Additional Psychological History / Comment(s): Pt resides with his spouse and 3 children. Smoking Status: Current every day smoker Past Alcohol Use History: None Reported Additional Past Alcohol Use History / Comment(s): reports quarter pack per day Past Drug Use History: None Reported - Past Family History Father Family Medical History: Coronary Artery Disease (CAD), Diabetes Mellitus, Hypertension Additional Family Medical History / Comment(s): pt. reports his father had a four vessel CABG Mother Family Medical History: Cancer, Hypertension Additional Family Medical History / Comment(s): LUNG CANCER(NON SMOKER) Medications and Allergies Home Medications Medication Instructions Recorded Confirmed Type Atorvastatin [Lipitor] 80 mg PO HS 11/11/18 09/15/19 History Nitroglycerin Sl Tabs [Nitrostat] 0.4 mg SUBLINGUAL Q5M PRN #25 tab 11/12/18 09/15/19 Rx Prasugrel [Effient] 10 mg PO DAILY #30 tab 11/12/18 09/15/19 Rx hydrALAZINE HCL [Apresoline] 50 mg PO BID #60 tab 11/12/18 09/15/19 Rx metFORMIN HCL [Glucophage] 1,000 mg PO AC-BID #0 11/12/18 09/15/19 Rx Insulin NPH/Reg Insulin 70/30 20 units SQ BID 01/05/19 09/15/19 History [humuLIN 70/30 VIAL] amLODIPine [Norvasc] 5 mg PO DAILY 01/05/19 09/15/19 History glipiZIDE [Glucotrol] 10 mg PO BID 01/05/19 09/15/19 History Triamterene-Hctz 37.5-25Mg 1 tab PO DAILY 01/23/19 09/15/19 History [Maxzide 37.5-25] Carvedilol [Coreg] 25 mg PO BID 05/11/19 09/15/19 History oxyCODONE-APAP 10-325MG [Percocet 1 tab PO QID PRN 05/11/19 09/15/19 History 10-325 mg] Aspirin 81 mg PO DAILY chew 09/03/19 09/15/19 Rx Losartan Potassium 100 mg PO DAILY 09/15/19 09/15/19 History Allergies Allergy/AdvReac Type Severity Reaction Status Date / Time vancomycin Allergy Rash/Hives Verified 09/15/19 09:34 Physical Exam Vitals: Vital Signs Temp Pulse Pulse Resp BP BP Pulse Ox 09/15/19 08:49 115/75 09/15/19 08:00 97.7 F 53 L 20 103/59 95 09/15/19 04:05 97.6 F 52 L 16 120/70 96 09/14/19 23:45 98.3 F 60 16 125/69 95 09/14/19 21:15 97.9 F 64 16 158/93 98 09/14/19 20:00 51 L 16 142/83 98 09/14/19 19:00 48 L 18 135/80 99 09/14/19 18:31 97.7 F 59 L 18 135/80 97 09/14/19 18:00 58 L 16 157/99 98 09/14/19 17:37 59 L 17 09/14/19 17:31 97.7 F 80 18 157/99 97 09/14/19 17:29 97.7 F 91 18 170/100 97 Intake and Output 09/14/19 09/15/19 09/15/19 22:59 06:59 14:59 Intake Total 540 66.013 320.337 Balance 540 66.013 320.337 Intake: Intake, IV Titration 66.013 80.337 Amount Heparin Sod,Pork in 0.45% 66.013 80.337 NaCl 25,000 unit In 0.45 % NaCl 1 250ml.bag @ 9.8 UNITS/KG/HR 10.002 mls/hr IV .Q24H ROSY Rx#: [id number] Oral 540 240 Other: Voiding Method Toilet # Voids 1 2 Weight 102.058 kg 102.2 kg PHYSICAL EXAMINATION: GENERAL: 48-year-old gentleman in no acute distress at the time of my examination HEENT: Head is atraumatic, normocephalic. Pupils equal, round. Sclera anicteric. Conjunctiva are clear. Mucous membranes of the mouth are moist. Neck is supple. There is no elevated jugular venous pressure. No carotid bruit is heard. HEART EXAMINATION: Heart S1, S2 normal. No murmur or gallop heard. CHEST EXAMINATION: Lungs are clear to auscultation and precussion. No chest wall tenderness is noted on palpation or with deep breathing. ABDOMEN: Soft, nontender. Bowel sounds are heard. No organomegaly noted. EXTREMITIES: 2+ peripheral pulses with no evidence of peripheral edema and no calf tenderness noted. NEUROLOGIC patient is awake, alert and oriented 3. . Results 09/14/19 17:47 09/14/19 17:47 Cardiac Enzymes 09/14/19 09/14/19 09/14/19 Range/Units 17:47 17:47 23:44 AST 29 (17-59) U/L Troponin I <0.012 <0.012 (0.000-0.034) ng/mL 09/15/19 Range/Units 07:16 AST (17-59) U/L Troponin I <0.012 (0.000-0.034) ng/mL Coagulation 09/14/19 09/15/19 09/15/19 Range/Units 19:35 01:55 07:16 PT 9.6 (9.0-12.0) sec APTT 22.0 34.5 H 43.5 H (22.0-30.0) sec Lipids 09/15/19 Range/Units 07:16 Triglycerides 135 (<150) mg/dL Cholesterol 100 (<200) mg/dL HDL Cholesterol 34 L (40-60) mg/dL CBC 09/14/19 Range/Units 17:47 WBC 7.9 (3.8-10.6) k/uL RBC 5.41 (4.30-5.90) m/uL Hgb 15.4 (13.0-17.5) gm/dL Hct 44.8 (39.0-53.0) % Plt Count 273 (150-450) k/uL Comprehensive Metabolic Panel 09/14/19 Range/Units 17:47 Sodium 140 (137-145) mmol/L Potassium 3.7 (3.5-5.1) mmol/L Chloride 98 (98-107) mmol/L Carbon Dioxide 30 (22-30) mmol/L BUN 17 (9-20) mg/dL Creatinine 0.89 (0.66-1.25) mg/dL Glucose 242 H (74-99) mg/dL Calcium 10.4 H (8.4-10.2) mg/dL AST 29 (17-59) U/L ALT 27 (21-72) U/L Alkaline Phosphatase 102 (38-126) U/L Total Protein 8.7 H (6.3-8.2) g/dL Albumin 5.2 H (3.5-5.0) g/dL Current Medications Generic Name Dose Route Start Last Admin Trade Name Freq PRN Reason Stop Dose Admin Aspirin 325 mg 09/15/19 09:00 09/15/19 08:48 Aspirin PO 325 mg DAILY ROSY Administration Atorvastatin Calcium 80 mg 09/14/19 22:15 09/14/19 22:16 Lipitor PO 80 mg HS ROSY Administration Carvedilol 25 mg 09/14/19 22:00 09/15/19 06:13 Coreg PO 25 mg BID-W/MEALS ROSY Administration Hydralazine HCl 50 mg 09/14/19 22:00 09/14/19 22:16 Apresoline PO 50 mg BID ROSY Administration Heparin Sodium/Sodium Chloride 250 mls @ 10.002 mls/hr 09/14/19 19:15 09/15/19 08:38 25,000 unit/ Sodium Chloride IV 14.8 units/kg/hr .Q24H ROSY 15.105 mls/hr Titration Protocol 9.8 UNITS/KG/HR Insulin Aspart 0 unit 09/14/19 21:55 09/15/19 06:12 Novolog SQ 1 unit ACHS ROSY Administration Protocol Nitroglycerin 0.4 mg 09/14/19 19:16 Nitrostat SUBLINGUAL Q5M PRN Chest Pain Nitroglycerin 1 inch 09/15/19 00:00 09/15/19 06:13 Nitro-Bid Oint TOPICAL 1 inch Q6HR ROSY Administration Oxycodone/Acetaminophen 1 each 09/14/19 21:56 09/14/19 22:16 Percocet 10-325 PO 1 each Q6H PRN Administration Pain Intake and Output 09/14/19 09/15/19 09/15/19 22:59 06:59 14:59 Intake Total 540 66.013 320.337 Balance 540 66.013 320.337 Intake: Intake, IV Titration 66.013 80.337 Amount Heparin Sod,Pork in 0.45% 66.013 80.337 NaCl 25,000 unit In 0.45 % NaCl 1 250ml.bag @ 9.8 UNITS/KG/HR 10.002 mls/hr IV .Q24H ROSY Rx#: [id number] Oral 540 240 Other: Voiding Method Toilet # Voids 1 2 Weight 102.058 kg 102.2 kg 09/14/19 17:47 09/14/19 17:47 EKG Interpretations (text) EKG shows a normal sinus rhythm with nonspecific ST-T wave changes Assessment and Plan Plan: Assessment and plan #1 chest pain, symptoms atypical for acute coronary syndrome. Troponins negative 3. EKG shows a normal sinus rhythm with no acute changes noted. #2 coronary artery disease with prior LAD RCA and PLV stenting in November 2018, most recently last month patient underwent successful stenting of a long segment of the mid RCA with reduction in stenosis of 95-0%, patient had significant in- stent restenosis of the RCA. Cardiac catheterization last month also revealed severe stenosis in the obtuse marginal branch with small caliber beyond and moderate disease of the first diagonal branch, mild disease in the LAD. #3 hypertension #4 diabetes #5 hyperlipidemia #6 nicotine dependence, patient continues to smoke 5 or 6 cigarettes a day, he states that he used to smoke a pack a day Plan We will obtain an echocardiogram with Doppler study, patient's most recent echo performed in November 2018 revealed a normal left ventricular systolic function. Continue aspirin, decreasing dose to 81 mg daily, Lipitor 80, Coreg 25 twice a day, discontinue Nitropaste, hydralazine 50 mg one tablet by mouth twice a day, resume losartan, decreasing the dose to 50 mg daily. Further recommendations to follow. DNP note has been reviewed, I agree with a documented findings and plan of care. Patient was seen and examined.
[2019-09-15] MEDS ORDERED: LOSARTAN 50 MG TAB PO SCH (10:30)
[2019-09-15] MEDS: oxyCODONE-APAP 10-325MG 1 EACH TAB PO PRN (11:00)
[2019-09-15 11:01] VITALS: BP 153/96; PULSE 54; TEMP 97.6
[2019-09-15] MEDS: hydrALAZINE HCL 50 MG TAB PO SCH (11:05)
[2019-09-15] MEDS ORDERED: NITROGLYCERIN SL TABS 0.4 MG TAB SUBLINGUAL PRN (11:08)
[2019-09-15] MEDS ORDERED: oxyCODONE-APAP 10-325MG 1 EACH TAB PO PRN (11:08)
[2019-09-15] MEDS ORDERED: glipiZIDE 10 MG TAB PO SCH (11:15)
[2019-09-15] MEDS ORDERED: DOXYCYCLINE 100 MG CAP PO SCH (11:30)
[2019-09-15 11:59] LABS: Glucose,Whole Blood 168 mg/dL (75-99)
--- NOTE | 2019-09-15 12:04 | P.HPIM ---
History of Present Illness 48-year-old pleasant gentleman with known history of coronary artery disease with multiple stents in the past came in with complains of generalized body aches flulike symptoms has been going on for few days cough with green sputum pr oduction sinus congestion pain in the sinuses along with chest pain which appears to be musculoskeletal nonradiating in diffusing the chest nonexertional sharp pain resolved at this time. Did take nitroglycerin with some relief. Patient chest pain is nonpleuritic not associated with food doesn't affect epigastric dysphagia and reflux disease. Cardiology valid the patient that many echocardiogram doesn't show any wall motion abnormality as patient will be ablated is chest pain-free patient will be discharged today. Patient is on a lot of blood pressure medication his blood pressure is low normal here. Patient was asked to check the blood pressure at home get a blood pressure machine and maintain a blood pressure diaryso that his primary care physician or cutter operator brick can appropriately titrated to blood pressure medications. As of now a do not believe patient will require hydralazine which will be discontinued amlodipine will be discontinued as well losartan dose is being decreased to 50 mg. Patient will be resumed on the beta suzie. I didn't make too many changes since blood pressure medications as I didn't have enough time here to titrate all his medications. Review of Systems REVIEW OF SYSTEMS: CONSTITUTIONAL: No fever, no malaise, no fatigue. HEENT:as mentioned in HPI CARDIOVASCULAR: No orthopnea, PND, no palpitations, no syncope. PULMONARY: No shortness of breath, no cough, no hemoptysis. GASTROINTESTINAL: No diarrhea, no nausea, no vomiting, no abdominal pain. NEUROLOGICAL: No headaches, no weakness, no numbness. HEMATOLOGICAL: Denies any bleeding or petechiae. GENITOURINARY: Denies any burning micturition, frequency, or urgency. MUSCULOSKELETAL/RHEUMATOLOGICAL: Denies any joint pain, swelling, or any muscle pain. ENDOCRINE: Denies any polyuria or polydipsia. The rest of the 14-point review of systems is negative. Past Medical History Past Medical History: Chest Pain / Angina, Diabetes Mellitus, GERD/Reflux, Hypertension, Syncope Additional Past Medical History / Comment(s): NIDDM type II, hiatal hernia, nephrolithiasis, chronic low back pain, bilateral leg numbness, R great toe diabetic foot ulcer, past left olecranon bursitis, osteomyelitis in L4-L5 w/abx treatment via PICC line (2018), managed by dr tran. History of Any Multi-Drug Resistant Organisms: MRSA Date of last positivie culture/infection: 12/21/16 MDRO Source:: Left axilla, BACK AND FACE Past Surgical History: Appendectomy, Cholecystectomy, Heart Catheterization, Heart Catheterization With Stent, Orthopedic Surgery Additional Past Surgical History / Comment(s): RENAL ANGIOGRAM 2005 for HTN, cardiac cath 2005, LT WRIST TENDON REPAIR 2013, RT ROTATOR CUFF REPAIR, bilateral knee arthroscopies, I&D L axillae, PICC LINES REMOVED. [address] Pl[address] ent with Dr. Ha in December of 2018 Past Anesthesia/Blood Transfusion Reactions: No Reported Reaction Date of Last Stent Placement:: 12/2018 Past Psychological History: No Psychological Hx Reported Additional Psychological History / Comment(s): Pt resides with his spouse and 3 children. Smoking Status: Current every day smoker Past Alcohol Use History: None Reported Additional Past Alcohol Use History / Comment(s): reports quarter pack per day Past Drug Use History: None Reported - Past Family History Father Family Medical History: Coronary Artery Disease (CAD), Diabetes Mellitus, Hypertension Additional Family Medical History / Comment(s): pt. reports his father had a four vessel CABG Mother Family Medical History: Cancer, Hypertension Additional Family Medical History / Comment(s): LUNG CANCER(NON SMOKER) Medications and Allergies Home Medications Medication Instructions Recorded Confirmed Type Atorvastatin [Lipitor] 80 mg PO HS 11/11/18 09/15/19 History Nitroglycerin Sl Tabs [Nitrostat] 0.4 mg SUBLINGUAL Q5M PRN #25 tab 11/12/18 09/15/19 Rx Prasugrel [Effient] 10 mg PO DAILY #30 tab 11/12/18 09/15/19 Rx metFORMIN HCL [Glucophage] 1,000 mg PO AC-BID #0 11/12/18 09/15/19 Rx Insulin NPH/Reg Insulin 70/30 20 units SQ BID 01/05/19 09/15/19 History [humuLIN 70/30 VIAL] glipiZIDE [Glucotrol] 10 mg PO BID 01/05/19 09/15/19 History Triamterene-Hctz 37.5-25Mg 1 tab PO DAILY 01/23/19 09/15/19 History [Maxzide 37.5-25] Carvedilol [Coreg] 25 mg PO BID 05/11/19 09/15/19 History oxyCODONE-APAP 10-325MG [Percocet 1 tab PO QID PRN 05/11/19 09/15/19 History 10-325 mg] Aspirin 81 mg PO DAILY chew 09/03/19 09/15/19 Rx Doxycycline Monohydrate [Monodox] 100 mg PO BID 3 Days #6 cap 09/15/19 Rx Losartan [Cozaar] 50 mg PO DAILY tab 09/15/19 Rx Allergies Allergy/AdvReac Type Severity Reaction Status Date / Time vancomycin Allergy Rash/Hives Verified 09/15/19 09:34 Physical Exam Vitals: Vital Signs Temp Pulse Pulse Resp BP BP BP 09/15/19 10:59 97.6 F 54 L 20 153/96 09/15/19 08:49 115/75 09/15/19 08:00 97.7 F 53 L 20 103/59 09/15/19 04:05 97.6 F 52 L 16 120/70 09/14/19 23:45 98.3 F 60 16 125/69 09/14/19 21:15 97.9 F 64 16 158/93 09/14/19 20:00 51 L 16 142/83 09/14/19 19:00 48 L 18 135/80 09/14/19 18:31 97.7 F 59 L 18 135/80 09/14/19 18:00 58 L 16 157/99 09/14/19 17:37 59 L 17 09/14/19 17:31 97.7 F 80 18 157/99 09/14/19 17:29 97.7 F 91 18 170/100 Pulse Ox 09/15/19 10:59 98 09/15/19 08:49 09/15/19 08:00 95 09/15/19 04:05 96 09/14/19 23:45 95 09/14/19 21:15 98 09/14/19 20:00 98 09/14/19 19:00 99 09/14/19 18:31 97 09/14/19 18:00 98 09/14/19 17:37 09/14/19 17:31 97 09/14/19 17:29 97 Intake and Output 09/14/19 09/15/1919 22:59 06:59 14:59 Intake Total 540 66.013 320.337 Balance 540 66.013 320.337 Intake: Intake, IV Titration 66.013 80.337 Amount Heparin Sod,Pork in 0.45% 66.013 80.337 NaCl 25,000 unit In 0.45 % NaCl 1 250ml.bag @ 9.8 UNITS/KG/HR 10.002 mls/hr IV .Q24H ROSY Rx#: [id number] Oral 540 240 Other: Voiding Method Toilet Toilet # Voids 1 2 Weight 102.058 kg 102.2 kg PHYSICAL EXAMINATION: GENERAL: The patient is alert and oriented x3, not in any acute distress. Well developed, well nourished. HEENT: Pupils are round and equally reacting to light. EOMI. No scleral icterus. No conjunctival pallor. Normocephalic, atraumatic. does havepharyngeal erythema. No thyromegaly. does have sinus tenderness CARDIOVASCULAR: S1 and S2 present. No murmurs, rubs, or gallops. PULMONARY: Chest is clear to auscultation, no wheezing or crackles. ABDOMEN: Soft, nontender, nondistended, normoactive bowel sounds. No palpable organomegaly. MUSCULOSKELETAL: No joint swelling or deformity. EXTREMITIES: No cyanosis, clubbing, or pedal edema. NEUROLOGICAL: Gross neurological examination did not reveal any focal deficits. SKIN: No rashes. Results CBC & Chem 7: 09/14/19 17:47 09/14/19 17:47 Labs: Abnormal Lab Results - Last 24 Hours (Table) 09/14/19 09/14/19 09/15/19 Range/Units 17:47 21:16 01:55 APTT 34.5 H (22.0-30.0) sec Glucose 242 H (74-99) mg/dL POC Glucose (mg/dL) 217 H (75-99) mg/dL Calcium 10.4 H (8.4-10.2) mg/dL Total Protein 8.7 H (6.3-8.2) g/dL Albumin 5.2 H (3.5-5.0) g/dL HDL Cholesterol (40-60) mg/dL 09/15/19 09/15/19 09/15/19 Range/Units 06:06 07:16 07:16 APTT 43.5 H (22.0-30.0) sec Glucose (74-99) mg/dL POC Glucose (mg/dL) 138 H (75-99) mg/dL Calcium (8.4-10.2) mg/dL Total Protein (6.3-8.2) g/dL Albumin (3.5-5.0) g/dL HDL Cholesterol 34 L (40-60) mg/dL 09/15/19 Range/Units 11:57 APTT (22.0-30.0) sec Glucose (74-99) mg/dL POC Glucose (mg/dL) 168 H (75-99) mg/dL Calcium (8.4-10.2) mg/dL Total Protein (6.3-8.2) g/dL Albumin (3.5-5.0) g/dL HDL Cholesterol (40-60) mg/dL Thrombosis Risk Factor Assmnt - Choose All That Apply Each Factor Represents 1 point: Age 41-60 years, Medical pt on bed rest, Obesity (BMI >25) Thrombosis Risk Factor Assessment Total Risk Factor Score: 3 Thrombosis Risk Factor Assessment Level: Moderate Risk Assessment and Plan Plan: -chest pain rule out acute coronary syndromes troponins are negative EKG did not show any new acute ST-T wave changes patient will undergo echocardiogram with normal patient will be discharged today cardiology evaluate the patient patient chest pain appears to be atypical musculoskeletal. -Cough with sputum production tach secondary to bacterial bronchitis patient probably had while upper respiratory infection followed by Bactrim bronchitis will prescribe him 3 days of doxycycline. -Hypertension blood pressure is low titration of blood pressure medication as mentioned in the history -Coronary artery disease with previous stents in the past patient will resume and continue his beta suzie statin and Antiplatelet therapy. -Hyperlipidemia -Continued nicotine use: Counseling was provided -Type 2 diabetes mellitus patient will be resumed on his oral hypoglycemic agents I don't have enough time to titrate this medications at this time patient will follow-up with PCP for this as an outpatient.
--- NOTE | 2019-09-15 12:05 | P.DS ---
Providers Date of admission: 09/14/19 19:16 Attending physician: Ras Hernandez MD Consults: 09/14/19 19:16 Consult Physician Urgent Consulting Provider: [facility] Consult Reason/Comments: Unstable angina Do you want consulting provider notified?: Yes Primary care physician: Fran [facility] Hospital Course: please refer to my HPI for further details Plan - Discharge Summary Discharge Rx Participant: Yes New Discharge Prescriptions: New Losartan [Cozaar] 50 mg PO DAILY tab Doxycycline Monohydrate [Monodox] 100 mg PO BID 3 Days #6 cap Continue Atorvastatin [Lipitor] 80 mg PO HS Nitroglycerin Sl Tabs [Nitrostat] 0.4 mg SUBLINGUAL Q5M PRN #25 tab PRN Reason: Chest Pain Prasugrel [Effient] 10 mg PO DAILY #30 tab metFORMIN HCL [Glucophage] 1,000 mg PO AC-BID #0 glipiZIDE [Glucotrol] 10 mg PO BID Insulin NPH/Reg Insulin 70/30 [humuLIN 70/30 VIAL] 20 units SQ BID Triamterene-Hctz 37.5-25Mg [Maxzide 37.5-25] 1 tab PO DAILY oxyCODONE-APAP 10-325MG [Percocet 10-325 mg] 1 tab PO QID PRN PRN Reason: Pain Carvedilol [Coreg] 25 mg PO BID Aspirin 81 mg PO DAILY chew Discontinued hydrALAZINE HCL [Apresoline] 50 mg PO BID #60 tab amLODIPine [Norvasc] 5 mg PO DAILY Losartan Potassium 100 mg PO DAILY Discharge Medication List Atorvastatin [Lipitor] 80 mg PO HS 11/11/18 [History] Nitroglycerin Sl Tabs [Nitrostat] 0.4 mg SUBLINGUAL Q5M PRN #25 tab 11/12/18 [Rx] Prasugrel [Effient] 10 mg PO DAILY #30 tab 11/12/18 [Rx] metFORMIN HCL [Glucophage] 1,000 mg PO AC-BID #0 11/12/18 [Rx] Insulin NPH/Reg Insulin 70/30 [humuLIN 70/30 VIAL] 20 units SQ BID 01/05/19 [History] glipiZIDE [Glucotrol] 10 mg PO BID 01/05/19 [History] Triamterene-Hctz 37.5-25Mg [Maxzide 37.5-25] 1 tab PO DAILY 01/23/19 [History] Carvedilol [Coreg] 25 mg PO BID 05/11/19 [History] oxyCODONE-APAP 10-325MG [Percocet 10-325 mg] 1 tab PO QID PRN 05/11/19 [History] Aspirin 81 mg PO DAILY chew 09/03/19 [Rx] Doxycycline Monohydrate [Monodox] 100 mg PO BID 3 Days #6 cap 09/15/19 [Rx] Losartan [Cozaar] 50 mg PO DAILY tab 09/15/19 [Rx] Follow up Appointment(s)/Referral(s): Anuel Peters MD [Primary Care Provider] - 3 Days Discharge Disposition: HOME SELF-CARE
--- NOTE | 2019-09-15 13:17 | ECHOF ---
Referral Reason:chest pain MEASUREMENTS -------- HEIGHT: 185.4 cm WEIGHT: 102.1 kg BP: 115/75 RVIDd: 3.4 cm (< 3.3) IVSd: 1.5 cm (0.6 - 1.1) LVIDd: 4.6 cm (3.9 - 5.3) LVPWd: 1.4 cm (0.6 - 1.1) IVSs: 2.3 cm LVIDs: 1.5 cm LVPWs: 1.7 cm LAESV Index (A-L): 27.22 ml/m Ao Diam: 3.7 cm (2.0 - 3.7) AV Cusp: 2.3 cm (1.5 - 2.6) LA Diam: 3.6 cm (2.7 - 3.8) MV EXCURSION: 17.701 mm (> 18.000) MV EF SLOPE: 104 mm/s (70 - 150) EPSS: 0.1 cm MV E Pete: 0.77 m/s MV DecT: 181 ms MV A Pete: 0.70 m/s MV E/A Ratio: 1.11 RAP: 5.00 mmHg RVSP: 17.38 mmHg FINDINGS -------- Sinus rhythm. This was a technically adequate study. The left ventricular size is normal. There is moderate concentric left ventricular hypertrophy. O verall left ventricular systolic function is low-normal with, an EF between 50 - 55 %. The diastoli c filling pattern is normal for the age of the patient 10.62. The right ventricle is mildly enlarged. The left atrial size is normal. Normal LA size by volume 22+/-6 ml/m2. The right atrial size is normal. Aortic valve is trileaflet and is mildly thickened. The mitral valve is normal. Mild mitral regurgitation is present. The tricuspid valve appears structurally normal. Mild tricuspid regurgitation present. Right vent ricular systolic pressure is normal at < 35 mmHg. There is no pulmonic regurgitation present. The aortic root size is normal. IVC Not well visulized. There is no pericardial effusion. CONCLUSIONS -------- 1. Sinus rhythm. 2. This was a technically adequate study. 3. The left ventricular size is normal. 4. There is moderate concentric left ventricular hypertrophy. 5. Overall left ventricular systolic function is low-normal with, an EF between 50 - 55 %. 6. The diastolic filling pattern is normal for the age of the patient 10.62 7. The right ventricle is mildly enlarged. 8. The left atrial size is normal. 9. Normal LA size by volume 22+/-6 ml/m2. 10. The right atrial size is normal. 11. Aortic valve is trileaflet and is mildly thickened. 12. The mitral valve is normal. 13. Mild mitral regurgitation is present. 14. The tricuspid valve appears structurally normal. 15. Mild tricuspid regurgitation present. 16. Right ventricular systolic pressure is normal at < 35 mmHg. 17. There is no pulmonic regurgitation present. 18. The aortic root size is normal. 19. IVC Not well visulized. 20. There is no pericardial effusion. CLOTH DYER: Sarah Beth Ambrose RDCS
[2019-09-15] MEDS ORDERED: PRASUGREL 10 MG TAB PO STA (13:33)
[2019-09-15] MEDS ORDERED: metFORMIN 500 MG TAB PO SCH (17:30)
[2019-09-15] MEDS ORDERED: INSULN ASP PRT/INSULIN ASPART 100 UNIT/ML 10 ML VIAL SQ SCH (17:30)
[2019-09-15] MEDS ORDERED: ATORVASTATIN 80 MG TAB PO SCH (21:00)
[2019-09-15] MEDS ORDERED: NON FORMULARY DRUG (Carvedilol [Coreg] 25 MG) PO SCH (21:00)
[2019-09-16] MEDS ORDERED: PRASUGREL 10 MG TAB PO SCH (09:00)
[2019-09-16] MEDS ORDERED: ASPIRIN 81 MG PO SCH ×2 (09:00)
== END 2019-09-15 15:31 | disposition home or self-care (01) ==
LOC: EC 17:25 → 3SCARD 19:16
PROVIDERS: ADMIT Internal Medicine; ATTEND Internal Medicine
DX: R07.89 Other chest pain (principal); J40 Bronchitis, not specified as acute or chronic; E11.621 Type 2 diabetes mellitus with foot ulcer; L97.519 Non-pressure chronic ulcer of other part of right foot with unspecified severity; E78.5 Hyperlipidemia, unspecified; Z71.6 Tobacco abuse counseling; F17.210 Nicotine dependence, cigarettes, uncomplicated; I25.110 Atherosclerotic heart disease of native coronary artery with unstable angina pectoris; Z79.02 Long term (current) use of antithrombotics/antiplatelets; Z79.4 Long term (current) use of insulin; Z79.82 Long term (current) use of aspirin; Z79.899 Other long term (current) drug therapy; Z80.1 Family history of malignant neoplasm of trachea, bronchus and lung; Z82.49 Family history of ischemic heart disease and other diseases of the circulatory system; Z83.3 Family history of diabetes mellitus; Z87.442 Personal history of urinary calculi; Z16.24 Resistance to multiple antibiotics; Z88.6 Allergy status to analgesic agent; Z79.891 Long term (current) use of opiate analgesic; Z95.5 Presence of coronary angioplasty implant and graft; Z90.49 Acquired absence of other specified parts of digestive tract
CPT/HCPCS: 96366 ×2; 96376; 96365; 96375; 99291; 36415; 93005; 93306; 80061; 80053; 83735; 84484 ×2; 85025; 85610; 85730 ×2; 71046; G0378 ×2; J1644 ×2; J1885; J1170

== ENCOUNTER → 2020-07-15 | Outpatient (CLI) | payer BC ==
[2020-07-15 13:44] LABS: HGB 13.8 gm/dL (13.0-17.5); MCH 27.9 pg (25.0-35.0); MCHC 32.8 g/dL (31.0-37.0); Mean Platelet Volume 7.6; Platelet Count 253 k/uL (150-450); RBC 4.94 m/uL (4.30-5.90); RDW 13.4 % (11.5-15.5); WBC 8.1 k/uL (3.8-10.6)
[2020-07-15 13:56] LABS: Potassium 3.8 mmol/L (3.5-5.1)
== END | disposition home or self-care (01) ==
LOC: LABPAT 12:48
PROVIDERS: ATTEND Internal Medicine Interventional Cardiology
DX: Z01.818 Encounter for other preprocedural examination (principal); I25.10 Atherosclerotic heart disease of native coronary artery without angina pectoris
CPT/HCPCS: 36415; 80051; 82565; 84520; 85027

== ENCOUNTER 2020-07-22 09:31 | Day surgery (SDC) | payer BC ==
[~2020-07-22 09:31] MED LIST changes: -ASPIRIN 325 MG TAB PO ONE; +ASPIRIN 325 MG TAB PO STA; -ATORVASTATIN 80 MG TAB PO ONE; +ATORVASTATIN 80 MG TAB PO STA
[2020-07-22] MEDS ORDERED: SODIUM CHLORIDE 0.9% 1,000 ML IV ONE (09:40)
[2020-07-22] MEDS ORDERED: ASPIRIN 81 MG ONE (09:42)
[2020-07-22 10:07] LABS: Glucose,Whole Blood 173 mg/dL (75-99)
[2020-07-22] MEDS ORDERED: fentaNYL (PF) 50 MCG/ML 2 ML AMP ONE (10:22)
[2020-07-22] MEDS ORDERED: LIDOCAINE 1% INJ 10MG/ML (20 ML MDV) ONE (10:22)
[2020-07-22] MEDS ORDERED: VERAPAMIL 2.5 MG/ML 2 ML AMP ONE (10:22)
[2020-07-22] MEDS ORDERED: LIDOCAINE 1% INJ 10MG/ML (20 ML MDV) SQ ONE (10:42)
[2020-07-22] MEDS ORDERED: fentaNYL (PF) 50 MCG/ML 2 ML AMP IVP ONE (10:42)
[2020-07-22] MEDS: MIDAZOLAM 2 MG/2 ML VIAL IVP ONE ×2 (10:45→11:00)
[2020-07-22] MEDS ORDERED: VERAPAMIL SYRINGE (5 MG/10 ML) INTRAARTER ONE (10:46)
[2020-07-22] MEDS ORDERED: HEPARIN SODIUM 1,000 UN/ML (10ML VL) IV ONE ×2 (10:49→10:53)
[2020-07-22] MEDS ORDERED: NITROGLYCERIN 1000MCG/10ML SYRINGE INTRACORON ONE (11:05)
[2020-07-22] MEDS ORDERED: IOPAMIDOL-370 125ML BTL INJ ONE (11:10)
[2020-07-22] MEDS ORDERED: IOPAMIDOL-370 100ML BTL INJ ONE ×2 (11:23→11:27)
[2020-07-22] MEDS ORDERED: MAG HYDROX/AL HYDROX/SIMETH 30 ML CUP PO PRN (11:50)
[2020-07-22] MEDS ORDERED: ATROPINE SULFATE 0.1 MG/ML 10ML SYRINGE IV PRN (11:50)
[2020-07-22] MEDS ORDERED: NITROGLYCERIN SL TABS 0.4 MG TAB SUBLINGUAL PRN (11:50)
[2020-07-22] MEDS ORDERED: RX INFO: IV CONTRAST WAS GIVEN 1 EACH MISC MISCELLANE PRN (11:50)
[2020-07-22] MEDS ORDERED: ZOLPIDEM 5 MG TAB PO PRN (11:50)
[2020-07-22] MEDS ORDERED: SODIUM CHLORIDE 0.9% 1,000 ML IV SCH (12:00)
[2020-07-22 12:20] LABS: Glucose,Whole Blood 169 mg/dL (75-99)
[2020-07-22] MEDS: oxyCODONE-APAP 10-325MG 1 EACH TAB PO PRN ×2 (12:44→21:01)
[2020-07-22 13:57] VITALS: BMI 29.2
--- NOTE | 2020-07-22 16:58 | CC ---
CARDIAC CATHETERIZATION REPORT Mr. Gonzalez is a 49-year-old male with known history of hypertension, hyperlipidemia, diabetes mellitus, history of coronary artery disease with prior percutaneous revascularization who presented with new-onset dyspnea on exertion and chest discomfort with activity, reminding him of the way he felt prior to his stenting in August 2019. In view of that, recommendation was made regarding cardiac catheterization. The procedure, its risks and complications were discussed with the patient, who was in full understanding and agreement. PROCEDURE DESCRIPTION: Patient was brought to the recyclable products sorter in a fasting, semi-sedated state. After receiving fentanyl and Benadryl and achieving a moderate conscious sedated state. Using Xylocaine anesthesia and Seldinger technique, a 6-Albanian sheath was introduced in the right radial artery. Selective right and left coronary angiography was performed using 5-Albanian 3-1/2 bend right and left sepsis right and left Miri catheters. Multiple views of the coronary arteries, including hemiaxial views, were obtained. Following that, catheters were removed. Images were reviewed. FINDINGS: LEFT MAIN: This is a short-sized vessel trifurcating into left anterior descending artery, ramus intermedius and left circumflex. The left main coronary artery has no evidence of high-grade stenosis. LEFT ANTERIOR DESCENDING ARTERY: This is a large-sized vessel reaching toward the apex. It tapers down in the distal third, giving rise to a moderately sized diagonal branch in the mid segment. The proximal left anterior descending artery is calcified, has a 20% plaque. The stented segment is patent with no evidence significant in-stent restenosis. The first diagonal branch at the takeoff a 70% stenosis at the ostium. The rest of the vessel has no high-grade stenosis. LEFT CIRCUMFLEX: This is a nondominant small vessel giving rise to 2 obtuse marginal branches. The takeoff of the second obtuse marginal branch has a 95% stenosis. The vessel beyond that is small in caliber. RIGHT CORONARY ARTERY: This is a large dominant vessel bifurcating distally into PDA and posterolateral segment and branches. The right PLV reaches toward the inferolateral wall. The stented segment in the proximal and mid RCA is patent. Distally there is a 70% stenosis. There is also about an 85% to 90% stenosis at the takeoff of the PLV. The stent in the PLV is patent distal to it. LEFT VENTRICULOGRAM: Left ventriculogram was not performed. CONCLUSION: 1. Significant stenosis in the proximal segment of the right PLV with significant stenosis in the distal right coronary artery and patent stent in the right coronary artery. 2. Patent stent to the LAD with mild disease in the proximal LAD. 3. Significant disease in a small left circumflex. RECOMMENDATIONS: In view of findings and anatomy, I recommend proceeding with angioplasty and stenting of the right coronary artery. The procedure, its risks and complication were discussed with the patient, who is in full understanding and agreement. MMODL / IJN: [id number] /
--- NOTE | 2020-07-22 17:13 | PTCA ---
PERCUTANEOUSTRANS CORORONARY ANGIOGRAPHY Mr. Gonzalez is a 49-year-old male with a known history of coronary artery disease with prior percutaneous revascularization who presented with symptoms of angina pectoris, underwent cardiac catheterization was found to have significant obstructive disease involving the right PLV and the distal right coronary artery. In view of that, recommendation regarding angioplasty and stenting, the procedures, risks, and complication were discussed with the patient who is in full understanding and agreement. PROCEDURE: A 6-Cuban FR4 guiding catheter was introduced into the system after cannulating the right coronary ostium, a 0.014 balanced medium weight J-wire was advanced across the lesion, positioned distal PLV. Subsequently, a 2.5 x 12 mm NC Emerge balloon was advanced and one inflation at 8 atmospheres was done, following that the balloon was removed and a 2.75 x 15 mm Xience Ashley stent was advanced, deployed and the PLV and postdilated 16 atmospheres following that the balloon was removed and a 3.0 x 12 mm NC Trek balloon was advanced and one inflation at 14 atmospheres was done. Following that, the balloon was removed and a 3.5 x 15 mm Xience Ashley stent was deployed in distal left circumflex and post dilated at 16 atmospheres and after removing the balloon, a 3.75 x 12 mm NC Trek balloon was advanced and one inflation at 14 atmospheres was done. After the last inflation, after appropriate wait, the balloon and the guidewire were withdrawn back in the guiding catheter. Images were obtained and repeated. Those images reveal stable successful stenting. At that point, the guiding catheter, the balloon and the guidewire were removed. The sheath was removed. Hemostasis was obtained with deployment of a TR band. There was no immediate complication. Patient is returned to his room in stable condition. Of note, the patient had chest discomfort with the inflation that resulted in procedure. He received throughout the procedure 8000 units of intravenous heparin and his ACT was followed. He also received intra-arterial verapamil. RESULTS: 1. Successful stenting of the right PLV with reduction of stenosis from a 90% to 0%. 2. Successful stenting of the distal right coronary artery with reduction of stenosis from 70% to 0%. RECOMMENDATION: Patient will be continued on aspirin, Effient, beta suzie, SAVANAH inhibitor and statin. The importance of dual antiplatelet treatment as well as smoking cessation were discussed with the patient who is in full understanding and agreement. Duration of procedure was 50 minutes. MMVIARJL / IJN: [id number] /
[2020-07-22 17:32] LABS: Glucose,Whole Blood 305 mg/dL (75-99)
[2020-07-22] MEDS: INSULN ASP PRT/INSULIN ASPART 100 UNIT/ML 10 ML VIAL SQ SCH (17:57)
[2020-07-22] MEDS: carvediloL 12.5 MG TAB PO SCH (18:21)
[2020-07-22 20:56] LABS: Glucose,Whole Blood 332 mg/dL (75-99)
[2020-07-22] MEDS ORDERED: ATORVASTATIN 80 MG TAB PO SCH (21:00)
[2020-07-22] MEDS: hydrALAZINE HCL 50 MG TAB PO SCH (21:01)
[2020-07-22] MEDS: glipiZIDE 10 MG TAB PO SCH (21:02)
[2020-07-23 06:49] LABS: Glucose,Whole Blood 163 mg/dL (75-99)
[2020-07-23 07:17] LABS: African American GFR (CKD) >90 (>60 ml/min/1.73 sqM); Anion Gap 5 mmol/L; Blood Urea Nitrogen 21 mg/dL (9-20); Calcium 8.7 mg/dL (8.4-10.2); Carbon Dioxide 31 mmol/L (22-30); Chloride 106 mmol/L (98-107); Glucose 162 mg/dL (74-99); Non-African American GFR(CKD) 79 (>60 ml/min/1.73 sqM); Potassium 3.5 mmol/L (3.5-5.1); Sodium 142 mmol/L (137-145)
[2020-07-23] MEDS: carvediloL 12.5 MG TAB PO SCH (08:00)
[2020-07-23] MEDS: oxyCODONE-APAP 10-325MG 1 EACH TAB PO PRN (08:02)
[2020-07-23] MEDS: INSULN ASP PRT/INSULIN ASPART 100 UNIT/ML 10 ML VIAL SQ SCH (08:03)
[2020-07-23] MEDS: hydrALAZINE HCL 50 MG TAB PO SCH (08:03)
[2020-07-23] MEDS: glipiZIDE 10 MG TAB PO SCH (08:08)
[2020-07-23] MEDS ORDERED: amLODIPine 5 MG TAB PO SCH (09:00)
[2020-07-23] MEDS ORDERED: ASPIRIN 81 MG PO SCH (09:00)
--- NOTE | 2020-07-23 09:04 | PN ---
PROGRESS NOTE Mr. Gonzalez is a 49-year-old male with a known history of coronary disease, diabetes, hypertension, hyperlipidemia, chronic tobacco use, who presented with worsening dyspnea and chest discomfort, underwent cardiac catheterization, was found significant stenosis in the takeoff of the right PLV and in the distal right coronary artery, underwent stenting of both vessels. He is doing well this morning, denying any chest pain. No dizziness or palpitation. He denies any nausea or vomiting. He continues to be on aspirin once a day, Lipitor 80 mg daily, Coreg 25 mg twice a day, hydralazine 50 mg twice a day, Effient 10 mg daily. PHYSICAL EXAMINATION: Blood pressure 137/70 with a heart rate in the 50s. LUNGS: Clear. HEART: Regular rate and rhythm, S1, S2. No S3. No rub. ABDOMEN: Soft, nontender. EXTREMITIES: No edema, right radial pulse intact. LAB DATA: Revealed BUN and creatinine 21 and 1.09, potassium 3.5. IMPRESSION: 1. Status post stenting of the right PLV in the distal right coronary artery. 2. Prior history of stenting of the LAD and the right coronary artery. 3. Hypertension. 4. Hyperlipidemia. 5. Diabetes mellitus. 6. Chronic tobacco use. RECOMMENDATION: Patient will be discharged home today and followed as an outpatient. I discussed with him again the importance of smoking cessation. MMODL / IJN: [id number] /
[2020-07-23 09:12] VITALS: BP 161/96; PULSE 52; RESP 18; TEMP 98
[2020-07-23] MEDS ORDERED: PRASUGREL 10 MG TAB PO SCH (11:51)
== END 2020-07-23 10:06 | disposition home or self-care (01) ==
LOC: CATHCVL 09:31 → 3NCARDOBS 11:44 → CATHCVL 07-23 10:06
PROVIDERS: ATTEND Internal Medicine Interventional Cardiology
DX: I25.110 Atherosclerotic heart disease of native coronary artery with unstable angina pectoris (principal); I25.84 Coronary atherosclerosis due to calcified coronary lesion; I10 Essential (primary) hypertension; E78.00 Pure hypercholesterolemia, unspecified; I25.2 Old myocardial infarction; F17.210 Nicotine dependence, cigarettes, uncomplicated; E11.9 Type 2 diabetes mellitus without complications; E78.2 Mixed hyperlipidemia; M19.90 Unspecified osteoarthritis, unspecified site; Z95.5 Presence of coronary angioplasty implant and graft; Z90.49 Acquired absence of other specified parts of digestive tract; Z98.890 Other specified postprocedural states; Z82.49 Family history of ischemic heart disease and other diseases of the circulatory system; Z79.02 Long term (current) use of antithrombotics/antiplatelets; Z79.82 Long term (current) use of aspirin; Z79.4 Long term (current) use of insulin; Z79.891 Long term (current) use of opiate analgesic; Z79.899 Other long term (current) drug therapy
CPT/HCPCS: 93454; 85347; 80048; C9600; C9601; C1769 ×2; C1887; C1725 ×3; C1874; C1894; J2250; J2001; J3010; J1644; Q9967 ×2

== ENCOUNTER → 2021-06-02 | Outpatient (CLI) | payer BC ==
[2021-06-02 17:32] LABS: Hemoglobin A1C 10.7 % (4.0-6.0)
[2021-06-02 17:40] LABS: African American GFR (CKD) 66.9 (60.0-200.0); Albumin 4.5 g/dL (3.80-4.90); Albumin/Globulin Ratio 1.96 (1.60-3.17); Anion Gap 7.9 mmol/L (4.00-12.00); BUN/Creat Ratio 19.29 Ratio (12.00-20.00); Calcium 9.7 mg/dL (8.7-10.3); Carbon Dioxide 29.1 mmol/L (21.6-31.8); Chol/HDL Ratio 4.25; Globulin 2.3 g/dL (1.6-3.3); LDL Cholesterol,Calculated 38.6 mg/dL (0.0-131.0); Non-African American GFR(CKD) 57.8 (60.0-200.0); Potassium 3.6 mmol/L (3.5-5.5); Total Bilirubin 0.5 mg/dL (0.3-1.2); Total Protein 6.8 g/dL (6.2-8.2); VLDL Calculation 65.4 mg/dL (5.00-40.00)
== END | disposition home or self-care (01) ==
LOC: LABWHC1 09:34
PROVIDERS: ATTEND Nurse Practitioner Adult Health
DX: E11.9 Type 2 diabetes mellitus without complications (principal); I10 Essential (primary) hypertension; E78.2 Mixed hyperlipidemia
CPT/HCPCS: 36415; 80053; 80061; 83036; 84403

== ENCOUNTER 2022-04-09 18:17 | Inpatient (IN) | payer BC ==
[2022-04-09 19:10] LABS: Basophils # (A) 0.2 k/uL (0-0.2); Basophils % (A) 2 %; Eosinophils # (A) 0.4 k/uL (0-0.7); Eosinophils % (A) 5 %; HCT 45.3 % (39.0-53.0); HGB 15.3 gm/dL (13.0-17.5); Lymphocytes # (A) 1.5 k/uL (1.0-4.8); Lymphocytes % (A) 18 %; MCH 29.5 pg (25.0-35.0); MCHC 33.8 g/dL (31.0-37.0); MCV 87.1 fL (80.0-100.0); Mean Platelet Volume 8.4; Monocytes # (A) 0.5 k/uL (0-1.0); Monocytes % (A) 6 %; Neutrophils # (A) 5.2 k/uL (1.3-7.7); Neutrophils % (A) 66 %; Platelet Count 208 k/uL (150-450); RDW 13.4 % (11.5-15.5); WBC 7.9 k/uL (3.8-10.6)
[2022-04-09 19:18] LABS: INR 0.9 (<1.2); Partial Thromboplastin Time 22.4 sec (22.0-30.0); Prothrombin Time 9.9 sec (9.0-12.0)
[2022-04-09 19:22] LABS: ALT 35 U/L (4-49); AST 38 U/L (17-59); African American GFR (CKD) >90 (>60 ml/min/1.73 sqM); Albumin 4.5 g/dL (3.5-5.0); Alkaline Phosphatase 95 U/L (38-126); Anion Gap 7 mmol/L; Blood Urea Nitrogen 17 mg/dL (9-20); Calcium 9.2 mg/dL (8.4-10.2); Carbon Dioxide 31 mmol/L (22-30); Chloride 101 mmol/L (98-107); Glucose 184 mg/dL (74-99); Magnesium 1.7 mg/dL (1.6-2.3); Non-African American GFR(CKD) 86 (>60 ml/min/1.73 sqM); Potassium 3.5 mmol/L (3.5-5.1); Sodium 139 mmol/L (137-145); Total Bilirubin 0.6 mg/dL (0.2-1.3); Total Protein 7.3 g/dL (6.3-8.2)
--- NOTE | 2022-04-09 19:27 | XR ---
EXAMINATION TYPE: XR chest 2V DATE OF EXAM: 04/09/2022 COMPARISON: 09/14/2019 HISTORY: Chest pain TECHNIQUE: FINDINGS: Heart and mediastinum are normal. Lungs are clear. Diaphragm is normal. Bony thorax is inta ct. IMPRESSION: Normal chest. No change.
--- NOTE | 2022-04-09 19:27 | ED ---
General Adult HPI - General Chief complaint: Chest Pain Stated complaint: chest pain, SOB Time Seen by Provider: 04/09/22 18:23 Source: patient, RN notes reviewed, old records reviewed Mode of arrival: wheelchair Limitations: no limitations - History of Present Illness Initial comments: 51-year-old male with known coronary artery disease, hypertension, diabetes presents for evaluation of chest pain with associated dyspnea. Patient was cutting his grass, he had central chest pain radiating to the left shoulder. He has previous history of CAD with stenting. He also is a current smoker. He has had a mild cough and nasal congestion over the past several days. No fevers. No lower extremity pain or swelling. - Related Data Home Medications Medication Instructions Recorded Confirmed Atorvastatin [Lipitor] 80 mg PO HS 11/11/18 04/09/22 glipiZIDE [Glucotrol] 10 mg PO BID 01/05/19 04/09/22 Triamterene-Hctz 37.5-25Mg 1 tab PO DAILY 01/23/19 04/09/22 [Maxzide 37.5-25] carvediloL [Coreg] 25 mg PO BID 05/11/19 04/09/22 amLODIPine [Norvasc] 5 mg PO DAILY 07/21/20 04/09/22 hydrALAZINE HCL [Apresoline] 50 mg PO BID 07/21/20 04/09/22 oxyCODONE-APAP 10-325MG [Percocet 1 tab PO TID 07/21/20 04/09/22 10-325 mg] Insulin Aspart Prot/Insuln Asp 20 unit SQ BID 04/09/22 04/09/22 [Novolog Mix 70-30 Flexpen] metFORMIN HCL [Glucophage] 1,000 mg PO BID 04/09/22 04/09/22 Previous Rx's Medication Instructions Recorded Nitroglycerin Sl Tabs [Nitrostat] 0.4 mg SUBLINGUAL Q5M PRN #25 tab 11/12/18 Aspirin 81 mg PO DAILY #90 tab 04/11/22 Clopidogrel [Plavix] 75 mg PO DAILY #90 tab 04/11/22 Fenofibrate 120 mg PO DAILY 60 Days #60 tablet 04/11/22 Nitroglycerin Sl Tabs [Nitrostat] 0.4 mg SUBLINGUAL Q5M PRN tab 04/11/22 Allergies Allergy/AdvReac Type Severity Reaction Status Date / Time vancomycin Allergy Rash/Hives Verified 04/09/22 20:09 Review of Systems ROS Statement: Those systems with pertinent positive or pertinent negative responses have been documented in the HPI. ROS Other: All systems not noted in ROS Statement are negative. Past Medical History Past Medical History: Chest Pain / Angina, Diabetes Mellitus, GERD/Reflux, Hypertension, Syncope Additional Past Medical History / Comment(s): NIDDM type II, hiatal hernia, nephrolithiasis, chronic low back pain, bilateral leg numbness, R great toe diabetic foot ulcer, past left olecranon bursitis, osteomyelitis in L4-L5 w/abx treatment via PICC line (2018), managed by dr tran. History of Any Multi-Drug Resistant Organisms: MRSA Date of last positivie culture/infection: 12/21/16 MDRO Source:: Left axilla, BACK AND FACE Past Surgical History: Appendectomy, Cholecystectomy, Heart Catheterization, Heart Catheterization With Stent, Orthopedic Surgery Additional Past Surgical History / Comment(s): RENAL ANGIOGRAM 2005 for HTN, cardiac cath 2005, LT WRIST TENDON REPAIR 2013, RT ROTATOR CUFF REPAIR, bilateral knee arthroscopies, I&D L axillae, PICC LINES REMOVED. [address] Ha in December of 2018 Past Anesthesia/Blood Transfusion Reactions: No Reported Reaction Date of Last Stent Placement:: 12/2018 Past Psychological History: No Psychological Hx Reported Smoking Status: Current every day smoker Past Alcohol Use History: None Reported Past Drug Use History: None Reported - Past Family History Father Family Medical History: Coronary Artery Disease (CAD), Diabetes Mellitus, Hypertension Additional Family Medical History / Comment(s): pt. reports his father had a four vessel CABG Mother Family Medical History: Cancer, Hypertension Additional Family Medical History / Comment(s): LUNG CANCER(NON SMOKER) General Exam Limitations: no limitations General appearance: alert, in no apparent distress Head exam: Present: atraumatic, normocephalic Eye exam: Present: normal appearance, PERRL ENT exam: Present: normal exam Neck exam: Present: normal inspection Respiratory exam: Present: decreased breath sounds. Absent: respiratory distress, wheezes Cardiovascular Exam: Present: regular rate, normal rhythm GI/Abdominal exam: Present: soft. Absent: distended, tenderness, guarding Extremities exam: Present: normal inspection, normal capillary refill. Absent: pedal edema Neurological exam: Present: alert, oriented X3, CN II-XII intact. Absent: motor sensory deficit Psychiatric exam: Present: normal affect, normal mood Skin exam: Present: warm, dry, intact. Absent: cyanosis, diaphoretic Course Vital Signs 04/09/22 04/09/22 18:18 19:53 Temperature 98 F Pulse Rate 86 75 Respiratory 16 20 Rate Blood Pressure 184/107 126/88 O2 Sat by Pulse 99 Oximetry EKG Findings - EKG Comments: EKG Findings:: EKG: Sinus rhythm, right bundle branch block, T-wave abnormality and ST segment depression in leads [address] aVL[address] No contiguous ST segment elevation. Rate of 81, LA interval 176, QRS duration 152, QTC 432. Medical Decision Making - Medical Decision Making 51-year-old male with known history of CAD presenting with exertional chest pain with typical features. EKG shows a right bundle branch block without ST segment elevated AK criteria. Patient has a clear chest x-ray. Normal CBC, normal CMP, negative initial troponin. He had taken aspirin at home prior to arrival. He is started on heparin for unstable angina. He will be admitted to [facility] with cardiology on consult. - Lab Data Result diagrams: 04/11/22 06:36 04/11/22 06:36 Lab Results 04/09/22 04/09/22 04/09/22 Range/Units 18:56 18:56 18:56 WBC 7.9 (3.8-10.6) k/uL RBC 5.20 (4.30-5.90) m/uL Hgb 15.3 (13.0-17.5) gm/dL Hct 45.3 (39.0-53.0) % MCV 87.1 (80.0-100.0) fL MCH 29.5 (25.0-35.0) pg MCHC 33.8 (31.0-37.0) g/dL RDW 13.4 (11.5-15.5) % Plt Count 208 (150-450) k/uL MPV 8.4 Neutrophils % 66 % Lymphocytes % 18 % Monocytes % 6 % Eosinophils % 5 % Basophils % 2 % Neutrophils # 5.2 (1.3-7.7) k/uL Lymphocytes # 1.5 (1.0-4.8) k/uL Monocytes # 0.5 (0-1.0) k/uL Eosinophils # 0.4 (0-0.7) k/uL Basophils # 0.2 (0-0.2) k/uL PT 9.9 (9.0-12.0) sec INR 0.9 (<1.2) APTT 22.4 (22.0-30.0) sec Sodium 139 (137-145) mmol/L Potassium 3.5 (3.5-5.1) mmol/L Chloride 101 (98-107) mmol/L Carbon Dioxide 31 H (22-30) mmol/L Anion Gap 7 mmol/L BUN 17 (9-20) mg/dL Creatinine 1.00 (0.66-1.25) mg/dL Est GFR (CKD-EPI)AfAm >90 (>60 ml/min/1.73 sqM) Est GFR (CKD-EPI)NonAf 86 (>60 ml/min/1.73 sqM) Glucose 184 H (74-99) mg/dL POC Glucose (mg/dL) (70-110) mg/dL POC [employer] Representative ID Estimated Ave Glu mg/dL Hemoglobin A1c (0.0-6.0) % Calcium 9.2 (8.4-10.2) mg/dL Magnesium 1.7 (1.6-2.3) mg/dL Total Bilirubin 0.6 (0.2-1.3) mg/dL AST 38 (17-59) U/L ALT 35 (4-49) U/L Alkaline Phosphatase 95 (38-126) U/L Troponin I (0.000-0.034) ng/mL NT-Pro-B Natriuret Pep pg/mL Total Protein 7.3 (6.3-8.2) g/dL Albumin 4.5 (3.5-5.0) g/dL Triglycerides (0.00-149.00) mg/dL Cholesterol (0.00-200.00) mg/dL LDL Cholesterol, Calc (0.0-131.0) mg/dL VLDL Cholesterol, Calc (5.00-40.00) mg/dL HDL Cholesterol (40.00-60.00) mg/dL Cholesterol/HDL Ratio Ratio Coronavirus (PCR) (Not Detectd) 04/09/22 04/09/22 04/09/22 Range/Units 18:56 18:56 18:56 WBC (3.8-10.6) k/uL RBC (4.30-5.90) m/uL Hgb (13.0-17.5) gm/dL Hct (39.0-53.0) % MCV (80.0-100.0) fL MCH (25.0-35.0) pg MCHC (31.0-37.0) g/dL RDW (11.5-15.5) % Plt Count (150-450) k/uL MPV Neutrophils % % Lymphocytes % % Monocytes % % Eosinophils % % Basophils % % Neutrophils # (1.3-7.7) k/uL Lymphocytes # (1.0-4.8) k/uL Monocytes # (0-1.0) k/uL Eosinophils # (0-0.7) k/uL Basophils # (0-0.2) k/uL PT (9.0-12.0) sec INR (<1.2) APTT (22.0-30.0) sec Sodium (137-145) mmol/L Potassium (3.5-5.1) mmol/L Chloride (98-107) mmol/L Carbon Dioxide (22-30) mmol/L Anion Gap mmol/L BUN (9-20) mg/dL Creatinine (0.66-1.25) mg/dL Est GFR (CKD-EPI)AfAm (>60 ml/min/1.73 sqM) Est GFR (CKD-EPI)NonAf (>60 ml/min/1.73 sqM) Glucose (74-99) mg/dL POC Glucose (mg/dL) (70-110) mg/dL POC [employer] Representative ID Estimated Ave Glu mg/dL Hemoglobin A1c (0.0-6.0) % Calcium (8.4-10.2) mg/dL Magnesium (1.6-2.3) mg/dL Total Bilirubin (0.2-1.3) mg/dL AST (17-59) U/L ALT (4-49) U/L Alkaline Phosphatase (38-126) U/L Troponin I 0.017 (0.000-0.034) ng/mL NT-Pro-B Natriuret Pep 180 pg/mL Total Protein (6.3-8.2) g/dL Albumin (3.5-5.0) g/dL Triglycerides (0.00-149.00) mg/dL Cholesterol (0.00-200.00) mg/dL LDL Cholesterol, Calc (0.0-131.0) mg/dL VLDL Cholesterol, Calc (5.00-40.00) mg/dL HDL Cholesterol (40.00-60.00) mg/dL Cholesterol/HDL Ratio Ratio Coronavirus (PCR) Not Detected (Not Detectd) 04/09/22 04/10/22 04/10/22 Range/Units 21:32 01:12 01:12 WBC 7.0 (3.8-10.6) k/uL RBC 4.69 (4.30-5.90) m/uL Hgb 13.8 (13.0-17.5) gm/dL Hct 41.4 (39.0-53.0) % MCV 88.3 (80.0-100.0) fL MCH 29.5 (25.0-35.0) pg MCHC 33.4 (31.0-37.0) g/dL RDW 13.6 (11.5-15.5) % Plt Count 195 (150-450) k/uL MPV 8.3 Neutrophils % 54 % Lymphocytes % 27 % Monocytes % 7 % Eosinophils % 7 % Basophils % 2 % Neutrophils # 3.8 (1.3-7.7) k/uL Lymphocytes # 1.9 (1.0-4.8) k/uL Monocytes # 0.5 (0-1.0) k/uL Eosinophils # 0.5 (0-0.7) k/uL Basophils # 0.1 (0-0.2) k/uL PT (9.0-12.0) sec INR (<1.2) APTT 35.8 H (22.0-30.0) sec Sodium (137-145) mmol/L Potassium (3.5-5.1) mmol/L Chloride (98-107) mmol/L Carbon Dioxide (22-30) mmol/L Anion Gap mmol/L BUN (9-20) mg/dL Creatinine (0.66-1.25) mg/dL Est GFR (CKD-EPI)AfAm (>60 ml/min/1.73 sqM) Est GFR (CKD-EPI)NonAf (>60 ml/min/1.73 sqM) Glucose (74-99) mg/dL POC Glucose (mg/dL) (70-110) mg/dL POC [employer] Representative ID Estimated Ave Glu mg/dL Hemoglobin A1c (0.0-6.0) % Calcium (8.4-10.2) mg/dL Magnesium (1.6-2.3) mg/dL Total Bilirubin (0.2-1.3) mg/dL AST (17-59) U/L ALT (4-49) U/L Alkaline Phosphatase (38-126) U/L Troponin I 0.013 (0.000-0.034) ng/mL NT-Pro-B Natriuret Pep pg/mL Total Protein (6.3-8.2) g/dL Albumin (3.5-5.0) g/dL Triglycerides (0.00-149.00) mg/dL Cholesterol (0.00-200.00) mg/dL LDL Cholesterol, Calc (0.0-131.0) mg/dL VLDL Cholesterol, Calc (5.00-40.00) mg/dL HDL Cholesterol (40.00-60.00) mg/dL Cholesterol/HDL Ratio Ratio Coronavirus (PCR) (Not Detectd) 04/10/22 04/10/22 04/10/22 Range/Units 01:12 01:12 07:35 WBC (3.8-10.6) k/uL RBC (4.30-5.90) m/uL Hgb (13.0-17.5) gm/dL Hct (39.0-53.0) % MCV (80.0-100.0) fL MCH (25.0-35.0) pg MCHC (31.0-37.0) g/dL RDW (11.5-15.5) % Plt Count (150-450) k/uL MPV Neutrophils % % Lymphocytes % % Monocytes % % Eosinophils % % Basophils % % Neutrophils # (1.3-7.7) k/uL Lymphocytes # (1.0-4.8) k/uL Monocytes # (0-1.0) k/uL Eosinophils # (0-0.7) k/uL Basophils # (0-0.2) k/uL PT 10.8 (9.0-12.0) sec INR 1.0 (<1.2) APTT (22.0-30.0) sec Sodium (137-145) mmol/L Potassium (3.5-5.1) mmol/L Chloride (98-107) mmol/L Carbon Dioxide (22-30) mmol/L Anion Gap mmol/L BUN (9-20) mg/dL Creatinine (0.66-1.25) mg/dL Est GFR (CKD-EPI)AfAm (>60 ml/min/1.73 sqM) Est GFR (CKD-EPI)NonAf (>60 ml/min/1.73 sqM) Glucose (74-99) mg/dL POC Glucose (mg/dL) 205 H (70-110) mg/dL POC [employer] Representative ID Lisa Cartwright Estimated [address] Glu mg/dL Hemoglobin A1c (0.0-6.0) % Calcium (8.4-10.2) mg/dL Magnesium (1.6-2.3) mg/dL Total Bilirubin (0.2-1.3) mg/dL AST (17-59) U/L ALT (4-49) U/L Alkaline Phosphatase (38-126) U/L Troponin I 0.015 (0.000-0.034) ng/mL NT-Pro-B Natriuret Pep pg/mL Total Protein (6.3-8.2) g/dL Albumin (3.5-5.0) g/dL Triglycerides (0.00-149.00) mg/dL Cholesterol (0.00-200.00) mg/dL LDL Cholesterol, Calc (0.0-131.0) mg/dL VLDL Cholesterol, Calc (5.00-40.00) mg/dL HDL Cholesterol (40.00-60.00) mg/dL Cholesterol/HDL Ratio Ratio Coronavirus (PCR) (Not Detectd) 04/10/22 04/10/22 04/10/22 Range/Units 09:38 09:38 09:38 WBC (3.8-10.6) k/uL RBC (4.30-5.90) m/uL Hgb (13.0-17.5) gm/dL Hct (39.0-53.0) % MCV (80.0-100.0) fL MCH (25.0-35.0) pg MCHC (31.0-37.0) g/dL RDW (11.5-15.5) % Plt Count (150-450) k/uL MPV Neutrophils % % Lymphocytes % % Monocytes % % Eosinophils % % Basophils % % Neutrophils # (1.3-7.7) k/uL Lymphocytes # (1.0-4.8) k/uL Monocytes # (0-1.0) k/uL Eosinophils # (0-0.7) k/uL Basophils # (0-0.2) k/uL PT (9.0-12.0) sec INR (<1.2) APTT 47.8 H (22.0-30.0) sec Sodium (137-145) mmol/L Potassium (3.5-5.1) mmol/L Chloride (98-107) mmol/L Carbon Dioxide (22-30) mmol/L Anion Gap mmol/L BUN (9-20) mg/dL Creatinine (0.66-1.25) mg/dL Est GFR (CKD-EPI)AfAm (>60 ml/min/1.73 sqM) Est GFR (CKD-EPI)NonAf (>60 ml/min/1.73 sqM) Glucose (74-99) mg/dL POC Glucose (mg/dL) (70-110) mg/dL POC [employer] Representative ID Estimated Ave Glu mg/dL 246 Hemoglobin A1c 10.2 H (0.0-6.0) % Calcium (8.4-10.2) mg/dL Magnesium (1.6-2.3) mg/dL Total Bilirubin (0.2-1.3) mg/dL AST (17-59) U/L ALT (4-49) U/L Alkaline Phosphatase (38-126) U/L Troponin I (0.000-0.034) ng/mL NT-Pro-B Natriuret Pep pg/mL Total Protein (6.3-8.2) g/dL Albumin (3.5-5.0) g/dL Triglycerides 295.00 H (0.00-149.00) mg/dL Cholesterol 117.00 (0.00-200.00) mg/dL LDL Cholesterol, Calc 31.2 (0.0-131.0) mg/dL VLDL Cholesterol, Calc 59.00 H (5.00-40.00) mg/dL HDL Cholesterol 26.80 L (40.00-60.00) mg/dL Cholesterol/HDL Ratio 4.37 Ratio Coronavirus (PCR) (Not Detectd) 04/10/22 Range/Units 12:20 WBC (3.8-10.6) k/uL RBC (4.30-5.90) m/uL Hgb (13.0-17.5) gm/dL Hct (39.0-53.0) % MCV (80.0-100.0) fL MCH (25.0-35.0) pg MCHC (31.0-37.0) g/dL RDW (11.5-15.5) % Plt Count (150-450) k/uL MPV Neutrophils % % Lymphocytes % % Monocytes % % Eosinophils % % Basophils % % Neutrophils # (1.3-7.7) k/uL Lymphocytes # (1.0-4.8) k/uL Monocytes # (0-1.0) k/uL Eosinophils # (0-0.7) k/uL Basophils # (0-0.2) k/uL PT (9.0-12.0) sec INR (<1.2) APTT (22.0-30.0) sec Sodium (137-145) mmol/L Potassium (3.5-5.1) mmol/L Chloride (98-107) mmol/L Carbon Dioxide (22-30) mmol/L Anion Gap mmol/L BUN (9-20) mg/dL Creatinine (0.66-1.25) mg/dL Est GFR (CKD-EPI)AfAm (>60 ml/min/1.73 sqM) Est GFR (CKD-EPI)NonAf (>60 ml/min/1.73 sqM) Glucose (74-99) mg/dL POC Glucose (mg/dL) 185 H (70-110) mg/dL POC [employer] Representative ID Lisa Cartwright Estimated Ave Glu mg/dL Hemoglobin A1c (0.0-6.0) % Calcium (8.4-10.2) mg/dL Magnesium (1.6-2.3) mg/dL Total Bilirubin (0.2-1.3) mg/dL AST (17-59) U/L ALT (4-49) U/L Alkaline Phosphatase (38-126) U/L Troponin I (0.000-0.034) ng/mL NT-Pro-B Natriuret Pep pg/mL Total Protein (6.3-8.2) g/dL Albumin (3.5-5.0) g/dL Triglycerides (0.00-149.00) mg/dL Cholesterol (0.00-200.00) mg/dL LDL Cholesterol, Calc (0.0-131.0) mg/dL VLDL Cholesterol, Calc (5.00-40.00) mg/dL HDL Cholesterol (40.00-60.00) mg/dL Cholesterol/HDL Ratio Ratio Coronavirus (PCR) (Not Detectd) Critical Care Time Critical Care Time: Yes Total Critical Care Time: 35 Disposition Clinical Impression: Unstable angina pectoris Disposition: ADMITTED IP TO THIS [facility] Condition: Stable Is patient prescribed a controlled substance at d/c from ED?: No Time of Disposition: 19:50
[2022-04-09] MEDS ORDERED: HEPARIN SODIUM 1,000 UN/ML (10ML VL) IV ONE (19:46)
[2022-04-09] MEDS ORDERED: NALOXONE 0.4 MG/ML 1 ML VIAL IV PRN (19:46)
[2022-04-09] MEDS ORDERED: HEPARIN SODIUM 1,000 UN/ML (10ML VL) IV PRN (19:46)
[2022-04-09] MEDS ORDERED: NITROGLYCERIN SL TABS 0.4 MG TAB SUBLINGUAL PRN (19:48)
[2022-04-09] MEDS ORDERED: HEPARIN SOD,PORK IN 0.45% NACL 25,000 UNIT in 0.45% NACL 1 250ML.BAG IV SCH (20:00)
--- NOTE | 2022-04-09 22:08 | P.HPIM ---
History of Present Illness H&P Date: 04/09/22 The patient is a 51-year-old male with a PMH of coronary artery disease status post 3 stents in 11/2018, hypertension, hyperlipidemia, and type II DM who presents to the emergency room with complaints of chest discomfort, shortness of breath, and diaphoresis. The patient reports that he was mowing his lawn earlier today at around 1 PM when he suddenly developed substernal chest tightness. He took sublingual nitroglycerin which initially alleviated his symptoms, but the pain recurred within an hour, 8 out of 10 on maximal intensity, radiating to the left shoulder and to the left jaw with associated shortness of breath and diaphoresis. He took another nitroglycerin which again alleviated the pain, only to recur again an hour later. At that time, he decided to come to the emergency room. He reports his last episode of chest discomfort shortly prior to arriving in the emergency room. Reports feeling at his baseline at the time of interview with no active chest discomfort, shortness of breath, nausea, vomiting, palpitations, or diaphoresis. States that his symptoms are very much in line with when he had his prior [place] in 2019. Denies experiencing lower extremity pain or swelling. Denies cough, fever, chills. Chest x-ray in the emergency room was unremarkable. Laboratory evaluation revealed a troponin of 0.017 with proBNP 180, glucose 184, and CO2 31. Review of systems: Pertinent positives and negatives as discussed in HPI, a complete review of systems was performed and all other systems are negative. Physical examination: General: non toxic, no distress, appears at stated age, normal weight Derm: no unusual rashes/lesions, warm Head: atraumatic, normocephalic, symmetric Eyes: EOMI, no lid lag, anicteric sclera, pupils equal round reactive to light ENT: Nose and ears atraumatic Neck: No cervical lymphadenopathy, trachea midline, supple Mouth: no lip lesion, mucus membranes moist Cardiovascular: S1S2 reg, no murmur, positive dorsalis pedis pulse bilateral, no edema Lungs: CTA bilateral, no rhonchi, no rales, no accessory muscle use Abdominal: soft, nontender to palpation, no guarding Ext: muscle strength 5 out of 5 in all 4 extremities grossly, no gross muscle atrophy, no contractures, Neuro: CN II-XI grossly intact, no gross focal neuro deficits Psych: Alert, oriented, appropriate affect Assessment/plan Unstable angina -Continue with heparin infusion -Continue with aspirin, statin -Cardiology consult -Cardiac monitoring -Trend troponin Chronic conditions: Type 2 DM, HTN, HLD -Continue with home meds -Insulin sliding scale and blood glucose monitoring DVT prophylaxis -Heparin infusion The patient is admitted with an anticipated less than 2 midnight stay for evaluation of chest pain. CODE STATUS: Full Code Discussed with: Patient Anticipated discharge date: In a.m. Anticipated discharge place: Home Past Medical History Past Medical History: Chest Pain / Angina, Diabetes Mellitus, GERD/Reflux, Hypertension, Syncope Additional Past Medical History / Comment(s): NIDDM type II, hiatal hernia, nephrolithiasis, chronic low back pain, bilateral leg numbness, R great toe d iabetic foot ulcer, past left olecranon bursitis, osteomyelitis in L4-L5 w/abx treatment via PICC line (2017), managed by dr tran. History of Any Multi-Drug Resistant Organisms: MRSA Date of last positivie culture/infection: 12/21/16 MDRO Source:: Left axilla, BACK AND FACE Past Surgical History: Appendectomy, Cholecystectomy, Heart Catheterization, Heart Catheterization With Stent, Orthopedic Surgery Additional Past Surgical History / Comment(s): RENAL ANGIOGRAM 2005 for HTN, cardiac cath 2005, LT WRIST TENDON REPAIR 2013, RT ROTATOR CUFF REPAIR, bilateral knee arthroscopies, I&D L axillae, PICC LINES REMOVED. [address] Ha in December of 2018 Past Anesthesia/Blood Transfusion Reactions: No Reported Reaction Date of Last Stent Placement:: 12/2018 Past Psychological History: No Psychological Hx Reported Smoking Status: Current every day smoker Past Alcohol Use History: None Reported Past Drug Use History: None Reported - Past Family History Father Family Medical History: Coronary Artery Disease (CAD), Diabetes Mellitus, Hypertension Additional Family Medical History / Comment(s): pt. reports his father had a four vessel CABG Mother Family Medical History: Cancer, Hypertension Additional Family Medical History / Comment(s): LUNG CANCER(NON SMOKER) Medications and Allergies Home Medications Medication Instructions Recorded Confirmed Type Atorvastatin [Lipitor] 80 mg PO HS 11/11/18 04/09/22 History Nitroglycerin Sl Tabs [Nitrostat] 0.4 mg SUBLINGUAL Q5M PRN #25 tab 11/12/18 04/09/22 Rx glipiZIDE [Glucotrol] 10 mg PO BID 01/05/19 04/09/22 History Triamterene-Hctz 37.5-25Mg 1 tab PO DAILY 01/23/19 04/09/22 History [Maxzide 37.5-25] carvediloL [Coreg] 25 mg PO BID 05/11/19 04/09/22 History amLODIPine [Norvasc] 5 mg PO DAILY 07/21/20 04/09/22 History hydrALAZINE HCL [Apresoline] 50 mg PO BID 07/21/20 04/09/22 History oxyCODONE-APAP 10-325MG [Percocet 1 tab PO TID 07/21/20 04/09/22 History 10-325 mg] Insulin Aspart Prot/Insuln Asp 20 unit SQ BID 04/09/22 04/09/22 History [Novolog Mix 70-30 Flexpen] metFORMIN HCL [Glucophage] 1,000 mg PO BID 04/09/22 04/09/22 History Allergies Allergy/AdvReac Type Severity Reaction Status Date / Time vancomycin Allergy Rash/Hives Verified 04/09/22 20:09 Physical Exam Vitals: Vital Signs Temp Pulse Resp BP Pulse Ox 04/09/22 19:53 75 20 126/88 04/09/22 18:18 98 F 86 16 184/107 99 Intake and Output 04/09/22 04/09/22 04/09/22 06:59 14:59 22:59 Other: Weight 108.862 kg Results CBC & Chem 7: 04/09/22 18:56 04/09/22 18:56 Labs: Abnormal Lab Results - Last 24 Hours (Table) 04/09/22 Range/Units 18:56 Carbon Dioxide 31 H (22-30) mmol/L Glucose 184 H (74-99) mg/dL
[2022-04-09] MEDS: carvediloL 12.5 MG TAB PO SCH (22:21)
[2022-04-09] MEDS: ATORVASTATIN 80 MG TAB PO SCH (22:21)
[2022-04-09] MEDS: NITROGLYCERIN OINT 1 INCH/GM PACKET TOPICAL SCH (22:22)
[2022-04-09] MEDS: hydrALAZINE HCL 50 MG TAB PO SCH (22:22)
[2022-04-10 01:43] LABS: Basophils # (A) 0.1 k/uL (0-0.2); Basophils % (A) 2 %; Eosinophils # (A) 0.5 k/uL (0-0.7); Eosinophils % (A) 7 %; HCT 41.4 % (39.0-53.0); HGB 13.8 gm/dL (13.0-17.5); Lymphocytes # (A) 1.9 k/uL (1.0-4.8); Lymphocytes % (A) 27 %; MCH 29.5 pg (25.0-35.0); MCHC 33.4 g/dL (31.0-37.0); MCV 88.3 fL (80.0-100.0); Mean Platelet Volume 8.3; Monocytes # (A) 0.5 k/uL (0-1.0); Monocytes % (A) 7 %; Neutrophils # (A) 3.8 k/uL (1.3-7.7); Neutrophils % (A) 54 %; Platelet Count 195 k/uL (150-450); RBC 4.69 m/uL (4.30-5.90); RDW 13.6 % (11.5-15.5)
[2022-04-10 01:55] LABS: Prothrombin Time 10.8 sec (9.0-12.0)
[2022-04-10] MEDS: oxyCODONE-APAP 10-325MG 1 EACH TAB PO SCH ×3 (04:00→20:49)
[2022-04-10] MEDS: NITROGLYCERIN OINT 1 INCH/GM PACKET TOPICAL SCH ×2 (06:23→13:17)
[2022-04-10] MEDS ORDERED: HEPARIN SODIUM,PORCINE 2,500 UNIT in SODIUM CHLORIDE 0.9% 250 ML IRRIGATION PRN (07:00)
[2022-04-10] MEDS ORDERED: HEPARIN SODIUM,PORCINE 10,000 UNIT in SODIUM CHLORIDE 0.9% 1,000 ML IRRIGATION PRN (07:00)
[2022-04-10] MEDS: INSULIN ASPART (NovoLOG) 100 UNIT/ML VIAL SQ SCH ×4 (07:42→21:31)
[2022-04-10] MEDS: ASPIRIN 81 MG PO SCH (07:42)
[2022-04-10] MEDS: carvediloL 12.5 MG TAB PO SCH ×2 (07:54→17:36)
[2022-04-10] MEDS: hydrALAZINE HCL 50 MG TAB PO SCH ×2 (07:54→20:50)
[2022-04-10] MEDS: amLODIPine 5 MG TAB PO SCH (07:54)
[2022-04-10] MEDS: TRIAMTERENE-HCTZ 37.5-25MG 1 EACH TAB PO SCH (07:54)
[2022-04-10 08:01] LABS: Glucose,Whole Blood 205 mg/dL (70-110)
[2022-04-10] MEDS ORDERED: NITROGLYCERIN SL TABS 0.4 MG TAB SUBLINGUAL PRN ×2 (08:18→12:10)
[2022-04-10] MEDS ORDERED: ASPIRIN 325 MG TAB PO STA (08:18)
[2022-04-10] MEDS ORDERED: ATORVASTATIN 80 MG TAB PO STA (08:18)
[2022-04-10] MEDS ORDERED: ALPRAZolam 0.5 MG TAB PO PRN (08:18)
[2022-04-10] MEDS ORDERED: ALPRAZolam 0.25 MG TAB PO PRN (08:18)
--- NOTE | 2022-04-10 08:27 | P.CRDCN ---
History of Present Illness History of present illness: HISTORY OF PRESENT ILLNESS: This is a 51-year-old male with a past medical history significant for coronary artery disease with previous PCI, hypertension, hyperlipidemia, diabetes, and nicotine dependence. Patient follows in the office with Dr. Ha. We have been asked to see the patient in consultation for chest pain. Patient examined at the bedside. Patient states yesterday he was outside mowing a lot and he suddenly began to have chest discomfort. He reports the pain was in the left side of his chest and radiated into his left shoulder and neck. He also reports feeling short of breath. He states that he went inside to sit down for a few minutes. He took a nitro which relieved his pain. Shortly afterwards his pain returned so he took another nitro which once again relieved his pain. He states this pain felt similar to his previous heart attacks. At that time he decided to come to the emergency room for further evaluation. The patient states he had another episode of chest pain overnight in the emergency room. He states a nitro patch was applied and he has been chest pain-free since that time. The patient states he has been compliant with all of his cardiac medications. The patient is a current smoker and smokes 1/21 pack per day. * EKG reveals sinus mechanism with right bundle branch block. Diffuse T-wave inversions * Chest xray negative for acute process * Laboratory data: WBC 7.0. Hemoglobin 13.8. Platelet count 195. Sodium 139. Potassium 3.5. BUN 17. Creatinine 1.0. Troponin negative 3. * Current home cardiac medications include Lipitor 80 mg at night, amlodipine 5 mg daily, carvedilol 25 mg twice a day, hydralazine 50 mg twice a day * Most recent echocardiogram obtained in September 2019 revealed ejection fract ion 50-55%, mild MR, mild TR * Cardiac catheterization history: July 2020 revealing patent stent to the LAD. Patient underwent stenting of the right PLV and distal RCA. REVIEW OF SYSTEMS: At the time of my exam: CONSTITUTIONAL: Denies fever or chills. HEENT: Denies blurred vision, vision changes, or eye pain. Denies hemoptysis CARDIOVASCULAR: Denies chest pain. Denies orthopnea. Denies PND. Denies palpitations RESPIRATORY: Denies shortness of breath. GASTROINTESTINAL: Denies abdominal pain. Denies nausea or vomiting. HEMATOLOGIC: Denies bleeding disorders. GENITOURINARY: Denies any blood in urine. SKIN: Denies pruitis. Denies rash. PHYSICAL EXAM: VITAL SIGNS: Reviewed. GENERAL: Well-developed in no acute distress. HEENT: Head is normocephalic. Pupils are equal, round. Sclerae anicteric. Mucous membranes of the mouth are moist. Neck supple. No JVD or thyromegaly LUNGS: Respirations even and unlabored. Lungs essentially clear to auscultation bilaterally. HEART: Regular rate and rhythm. S1 and S2 heard. ABDOMEN: Soft. Nondistended. Nontender. EXTREMITIES: Normal range of motion. No clubbing or cyanosis. Peripheral pu lses intact. No lower extremity edema NEUROLOGIC: Awake and alert. Oriented x 3. ASSESSMENT: Unstable angina Coronary artery disease with previous PCI Hypertension Hyperlipidemia Diabetes Nicotine dependence PLAN: Resume home cardiac medications Continue IV heparin Obtain 2D echo to assess cardiac structure and function Smoking cessation recommended Patient to undergo cardiac catheterization today with Dr. Ha Further recommendations pending patient course Nurse practitioner note has been reviewed by physician. Signing provider agrees with the documented findings, assessment, and plan of care. Past Medical History Past Medical History: Chest Pain / Angina, Diabetes Mellitus, GERD/Reflux, Hypertension, Syncope Additional Past Medical History / Comment(s): NIDDM type II, hiatal hernia, nephrolithiasis, chronic low back pain, bilateral leg numbness, R great toe diabetic foot ulcer, past left olecranon bursitis, osteomyelitis in L4-L5 w/abx treatment via PICC line (2018), managed by dr tran. History of Any Multi-Drug Resistant Organisms: MRSA Date of last positivie culture/infection: 12/21/16 MDRO Source:: Left axilla, BACK AND FACE Past Surgical History: Appendectomy, Cholecystectomy, Heart Catheterization, Heart Catheterization With Stent, Orthopedic Surgery Additional Past Surgical History / Comment(s): RENAL ANGIOGRAM 2006 for HTN, cardiac cath 2005, LT WRIST TENDON REPAIR 2013, RT ROTATOR CUFF REPAIR, bilat eral knee arthroscopies, I&D L axillae, PICC LINES REMOVED. [address] Ha in December of 2018 Past Anesthesia/Blood Transfusion Reactions: No Reported Reaction Date of Last Stent Placement:: 12/2018 Past Psychological History: No Psychological Hx Reported Smoking Status: Current every day smoker Past Alcohol Use History: None Reported Past Drug Use History: None Reported - Past Family History Father Family Medical History: Coronary Artery Disease (CAD), Diabetes Mellitus, Hypertension Additional Family Medical History / Comment(s): pt. reports his father had a four vessel CABG Mother Family Medical History: Cancer, Hypertension Additional Family Medical History / Comment(s): LUNG CANCER(NON SMOKER) Medications and Allergies Home Medications Medication Instructions Recorded Confirmed Type Atorvastatin [Lipitor] 80 mg PO HS 11/11/18 04/09/22 History Nitroglycerin Sl Tabs [Nitrostat] 0.4 mg SUBLINGUAL Q5M PRN #25 tab 11/12/18 04/09/22 Rx glipiZIDE [Glucotrol] 10 mg PO BID 01/05/19 04/09/22 History Triamterene-Hctz 37.5-25Mg 1 tab PO DAILY 01/23/19 04/09/22 History [Maxzide 37.5-25] carvediloL [Coreg] 25 mg PO BID 05/11/19 04/09/22 History amLODIPine [Norvasc] 5 mg PO DAILY 07/21/20 04/09/22 History hydrALAZINE HCL [Apresoline] 50 mg PO BID 07/21/20 04/09/22 History oxyCODONE-APAP 10-325MG [Percocet 1 tab PO TID 07/21/20 04/09/22 History 10-325 mg] Insulin Aspart Prot/Insuln Asp 20 unit SQ BID 04/09/22 04/09/22 History [Novolog Mix 70-30 Flexpen] metFORMIN HCL [Glucophage] 1,000 mg PO BID 04/09/22 04/09/22 History Allergies Allergy/AdvReac Type Severity Reaction Status Date / Time vancomycin Allergy Rash/Hives Verified 04/09/22 20:09 Physical Exam Vitals: Vital Signs Temp Pulse Pulse Resp BP BP Pulse Ox 04/10/22 02:45 78 16 04/10/22 02:42 97.8 F 78 16 121/78 95 04/09/22 21:09 98.4 F 62 16 159/98 97 04/09/22 19:53 75 20 126/88 04/09/22 18:18 98 F 86 16 184/107 99 Intake and Output 04/09/22 04/10/22 04/10/22 22:59 06:59 14:59 Intake Total 66.026 Balance 66.026 Intake: Intake, IV Titration 66.026 Amount Heparin Sod,Pork in 0.45% 66.026 NaCl 25,000 unit In 0.45 % NaCl 1 250ml.bag @ 9.19 UNITS/KG/HR 10.004 mls/ hr IV .Q24H [facility] Rx#: [id number] Other: Voiding Method Toilet # Voids 1 2 Weight 108.862 kg Results 04/10/22 01:12 04/09/22 18:56 Cardiac Enzymes 04/09/22 04/09/22 04/09/22 Range/Units 18:56 18:56 21:32 AST 38 (17-59) U/L Troponin I 0.017 0.013 (0.000-0.034) ng/mL 04/10/22 Range/Units 01:12 AST (17-59) U/L Troponin I 0.015 (0.000-0.034) ng/mL Coagulation 04/09/22 04/10/22 04/10/22 Range/Units 18:56 01:12 01:12 PT 9.9 10.8 (9.0-12.0) sec APTT 22.4 35.8 H (22.0-30.0) sec CBC 04/09/22 04/10/22 Range/Units 18:56 01:12 WBC 7.9 7.0 (3.8-10.6) k/uL RBC 5.20 4.69 (4.30-5.90) m/uL Hgb 15.3 13.8 (13.0-17.5) gm/dL Hct 45.3 41.4 (39.0-53.0) % Plt Count 208 195 (150-450) k/uL Comprehensive Metabolic Panel 04/09/22 Range/Units 18:56 Sodium 139 (137-145) mmol/L Potassium 3.5 (3.5-5.1) mmol/L Chloride 101 (98-107) mmol/L Carbon Dioxide 31 H (22-30) mmol/L BUN 17 (9-20) mg/dL Creatinine 1.00 (0.66-1.25) mg/dL Glucose 184 H (74-99) mg/dL Calcium 9.2 (8.4-10.2) mg/dL AST 38 (17-59) U/L ALT 35 (4-49) U/L Alkaline Phosphatase 95 (38-126) U/L Total Protein 7.3 (6.3-8.2) g/dL Albumin 4.5 (3.5-5.0) g/dL Current Medications Generic Name Dose Route Start Last Admin Trade Name Freq PRN Reason Stop Dose Admin Amlodipine Besylate 5 mg 04/10/22 09:00 Amlodipine 5 Mg Tab PO DAILY [facility] Aspirin 81 mg 04/10/22 09:00 04/10/22 07:42 Aspirin 81 Mg PO 81 mg DAILY [facility] Administration Atorvastatin Calcium 80 mg 04/09/22 21:00 04/09/22 22:21 Atorvastatin 80 Mg Tab PO 80 mg HS [facility] Administration Carvedilol 25 mg 04/09/22 21:00 04/09/22 22:21 Carvedilol 12.5 Mg Tab PO 25 mg AC-BID [facility] Administration Heparin Sodium (Porcine) 0 unit 04/09/22 19:46 04/10/22 03:17 Heparin Sodium 1,000 Un/Ml (10ml Vl) IV 2,700 unit PER PROTOCOL PRN Administration Low PTT Protocol Hydralazine HCl 50 mg 04/09/22 21:00 04/09/22 22:22 Hydralazine Hcl 50 Mg Tab PO 50 mg BID [facility] Administration Heparin Sodium/Sodium Chloride 250 mls @ 10.004 mls/hr 04/09/22 20:00 04/10/22 03:10 25,000 unit/ Sodium Chloride IV 11.19 units/kg/hr .Q24H [facility] 12.182 mls/hr Titration Protocol 9.19 UNITS/KG/HR Insulin Aspart 0 unit 04/10/22 07:30 04/10/22 07:42 Insulin Aspart (Novolog) 100 Unit/Ml Vial SQ 2 unit ACHS [facility] Administration Protocol Naloxone HCl 0.2 mg 04/09/22 19:46 Naloxone 0.4 Mg/Ml 1 Ml Vial IV Q2M PRN Opioid Reversal Nitroglycerin 0.4 mg 04/09/22 19:48 Nitroglycerin Sl Tabs 0.4 Mg Tab SUBLINGUAL Q5M PRN Chest Pain Nitroglycerin 0.5 inch 04/10/22 00:00 04/10/22 06:23 Nitroglycerin Oint 1 Inch/Gm Packet TOPICAL 0.5 inch Q6HR [facility] Administration Oxycodone/Acetaminophen 1 each 04/10/22 04:00 04/10/22 04:00 Oxycodone-Apap 10-325mg 1 Each Tab PO 1 each Q8H [facility] Administration Triamterene/Hydrochlorothiazide 1 each 04/10/22 09:00 Triamterene-Hctz 37.5-25mg 1 Each Tab PO DAILY [facility] Intake and Output 04/09/22 04/10/22 04/10/22 22:59 06:59 14:59 Intake Total 66.026 Balance 66.026 Intake: Intake, IV Titration 66.026 Amount Heparin Sod,Pork in 0.45% 66.026 NaCl 25,000 unit In 0.45 % NaCl 1 250ml.bag @ 9.19 UNITS/KG/HR 10.004 mls/ hr IV .Q24H [facility] Rx#: [id number] Other: Voiding Method Toilet # Voids 1 2 Weight 108.862 kg 04/10/22 01:12 04/09/22 18:56
[2022-04-10] MEDS: SODIUM CHLORIDE 0.9% 1,000 ML in EMPTY BAG 1 BAG IV SCH ×2 (09:30→23:02)
[2022-04-10] MEDS ORDERED: IV FLUID CONTINUATION 1,000 ML IV ONE (11:05)
[2022-04-10] MEDS ORDERED: fentaNYL (PF) 50 MCG/ML 2 ML AMP ONE (11:15)
[2022-04-10] MEDS ORDERED: fentaNYL (PF) 50 MCG/ML 2 ML AMP IV ONE (11:19)
[2022-04-10] MEDS ORDERED: LIDOCAINE 1% INJ 10MG/ML (5 ML VIAL-PF) SQ ONE (11:19)
[2022-04-10] MEDS: VERAPAMIL SYRINGE (5 MG/10 ML) INTRAARTER ONE ×2 (11:20→11:53)
[2022-04-10] MEDS ORDERED: HEPARIN SODIUM 1,000 UN/ML (10ML VL) ONE (11:22)
[2022-04-10] MEDS: HEPARIN SODIUM 1,000 UN/ML (10ML VL) IV ONE ×2 (11:28→11:38)
[2022-04-10] MEDS: MIDAZOLAM 2 MG/2 ML VIAL IV ONE ×2 (11:28→11:51)
[2022-04-10] MEDS ORDERED: CLOPIDOGREL 75 MG TAB ONE (11:33)
[2022-04-10] MEDS ORDERED: CLOPIDOGREL 75 MG TAB PO ONE (11:38)
[2022-04-10] MEDS ORDERED: NITROGLYCERIN 1000MCG/10ML SYRINGE INTRACORON ONE (11:42)
[2022-04-10] MEDS ORDERED: IOPAMIDOL-370 125ML BTL INJ ONE (11:46)
[2022-04-10] MEDS ORDERED: VERAPAMIL 2.5 MG/ML 2 ML AMP ONE (11:51)
[2022-04-10] MEDS ORDERED: IOPAMIDOL-370 100ML BTL INJ ONE (11:53)
[2022-04-10] MEDS ORDERED: RX INFO: IV CONTRAST WAS GIVEN 1 EACH MISC MISCELLANE PRN (12:10)
[2022-04-10] MEDS ORDERED: ATROPINE SULFATE 0.1 MG/ML 10ML SYRINGE IV PRN (12:10)
[2022-04-10] MEDS ORDERED: ZOLPIDEM 5 MG TAB PO PRN (12:10)
[2022-04-10] MEDS ORDERED: MAG HYDROX/AL HYDROX/SIMETH 30 ML CUP PO PRN (12:10)
[2022-04-10] MEDS ORDERED: SODIUM CHLORIDE 0.9% 1,000 ML in EMPTY BAG 1 BAG IV SCH (12:15)
--- NOTE | 2022-04-10 12:18 | P.CARDCATH ---
Date of Procedure: 04/10/22 Description of Procedure: Cardiac Catheterization: Patient is a 51-year-old male with a known history of CAD multivessel stenting who presented with new onset exertional chest discomfort, anginal like with EKG changes but no enzymatic changes. Recommendations were made regarding cardiac catheterization, the risks and the complications were discussed with the patient who is in full understanding and agreement. Procedure Description: Patient was brought to [facility] in fasting semi-sedated state after receiving Fentanyl and Benadryl achieiving moderate conscious sedated state. Using Xylocaine Anesthesia and Seldinger technique, a 6-Luxembourger sheath was introduced in the right radial artery . Subsequently, selective coronary angiography was performed using a 5-Luxembourger 3.5 bend Miri catheter. Multiple views of the coronary artery including hemiaxial views were obtained. Following that, catheter were removed and images were reviewed. The patient had significant spasm in the radial artery . There was no immediate complication. . Of note, the patient received a total of 5000 units of intravenous heparin as well as intra-arterial verapamil. There was no immediate complications. Findings: Left main: This is a size vessel that trifurcates into LAD, left circumflex and ramus intermedius, the left main has no high-grade stenosis LAD: This is a size vessel, giving rise to a large diagonal branch. The stented segment in the proximal and mid LAD is patent with 20% in-stent restenosis. The ostium of the diagonal branch are sent plaque, the mid segment has 99% stenosis Left circumflex: This is a nondominant vessel giving rise to 2 obtuse marginal branch of small caliber the left circumflex after the first obtuse marginal branch is diffusely diseased and has slow flow. Ramus intermedius this is a size vessel with no evidence of high-grade stenosis. RCA: This is a large dominant vessel, bifurcating into PDA and PLV, the stented segment proximal mid and distal RCA patent with 10-20% in-stent restenosis. The PLV stent is patent. There is an 80% stenosis at the ostium of the PDA. Left Ventriculogram: Not performed Conclusion: 1. Progression of disease in the mid first diagonal 2. Patent stent in the LAD and the RCA 3. No progression of disease in the ostium of the first diagonal and right PDA. 4. Right dominance Recommendations: I have recommended to proceed with angioplasty and stenting of the diagonal Branch, the procedure as well as the risks and the complications were discussed with the patient who was in full understanding and agreement.
--- NOTE | 2022-04-10 12:22 | P.CARDCATH ---
Date of Procedure: 04/10/22 Description of Procedure: PERCUTANEOUS TRANSLUMINAL CORONARY ANGIOPLASTY CLINICAL INFORMATION: The patient is a 51-year-old male with a known history of CAD who presented with new onset angina, his cardiac catheterization revealed progression of disease in the first diagonal branch. The procedure as well as the risks and the complications were discussed with the patient who was in full understanding and agreement. PROCEDURE: A 6 [place] C last 3.5 guiding catheter was introduced into the system. After cannulating the left main, a 0.014 BMW was advanced across the lesion and positioned distally. Following that a 2.0 x 12 mm Treck balloon was advanced and inflated at 8 atmosphere. Following that a 2.0 x 15 mm resolute jewel stent was deployed. It was dilated at 14. After the last inflation, after appropriate wait, the balloon and the guidewire were withdrawn back into the guiding catheter. Images were obtained and repeated. Those images reveal stable successful stenting. At that point, the guiding catheter, the balloon, and guidewire were removed. The sheath was removed. Hemostasis was obtained with the deployment of TR band. There were no immediate complications. The patient was returned to the room in stable condition. Of note, the patient received a total of 7000 units of heparin as well as Plavix. His ACT was followed. There was no immediate complications. He had chest discomfort that resolved at the end of the procedure but no significant EKG changes. RESULTS: Successful stenting of the first diagonal branch with reduction of stenosis from 99 % to 0 %. Patient had significant spasm of the radial artery RECOMMENDATIONS: The patient will continue on aspirin and Plavix for 6 months with aggressive coronary risks modifications and smoking cessation. The findings and recommendations were discussed with the patient and is in full understanding and agreement. Duration of sedation: 39
[2022-04-10 12:27] LABS: Glucose,Whole Blood 185 mg/dL (70-110)
--- NOTE | 2022-04-10 13:44 | P.PN ---
Subjective Progress Note Date: 04/10/22 History of Present Illness H&P Date: 04/09/22 The patient is a 51-year-old male with a PMH of coronary artery disease status post 3 stents in 11/2018, hypertension, hyperlipidemia, and type II DM who presents to the emergency room with complaints of chest discomfort, shortness of breath, and diaphoresis. The patient reports that he was mowing his lawn earlier today at around 1 PM when he suddenly developed substernal chest tightness. He took sublingual nitroglycerin which initially alleviated his symptoms, but the pain recurred within an hour, 8 out of 10 on maximal intensity, radiating to the left shoulder and to the left jaw with associated shortness of breath and diaphoresis. He took another nitroglycerin which again alleviated the pain, only to recur again an hour later. At that time, he decided to come to the emergency room. He reports his last episode of chest discomfort shortly prior to arriving in the emergency room. Reports feeling at his baseline at the time of interview with no active chest discomfort, shortness of breath, nausea, vomiting, palpitations, or diaphoresis. States that his symptoms are very much in line with when he had his prior FL in 2019. Denies experiencing lower extremity pain or swelling. Denies cough, fever, chills. Chest x-ray in the emergency room was unremarkable. Laboratory evaluation revealed a troponin of 0.017 with proBNP 180, glucose 184, and CO2 31. Interval history: Patient was and examined at the bedside. Chest pain improved after the left heart cath and intervention. He just came from the [facility]. Left heart cath showed 99% stenosis FIRST DIAGONAL BRANCH STATUS POST successful stenting of the first diagonal branch Physical examination: General: non toxic, no distress, appears at stated age Derm: warm, dry Head: atraumatic, normocephalic, symmetric Eyes: EOMI, no lid lag, anicteric sclera Mouth: no lip lesion, mucus membranes moist Cardiovascular: S1S2 reg, no murmur, positive posterior tibial pulse bilateral, Lungs: CTA bilateral, no rhonchi, no rales , no accessory muscle use Abdominal: soft, nontender to palpation, no guarding, no appreciable organomegaly Ext: no gross muscle atrophy, no edema, no contractures Neuro: CN II-XI grossly intact, no focal neuro deficits Psych: Alert, oriented, appropriate affect Assessment/plan Unstable angina -Status post left heart cath April 10 with PTCA and stent to the first diagonal branch -Continue Coreg, aspirin, Plavix and high-dose statin -Check lipid panel and A1c -Cardiology input appreciated -Cardiac monitoring -Trend troponin Type 2 DM -Pending A1c -Continue with home meds -Insulin sliding scale and blood glucose monitoring Hypertension -Resume home medications Obesity BMI 30 -Weight loss and exercise recommended DVT prophylaxis -IV heparin Full code Anticipated discharge home tomorrow April 11 Objective - Vital Signs Vital signs: Vital Signs Temp 98 F 04/10/22 12:25 Pulse 59 L 04/10/22 12:55 Resp 18 04/10/22 12:55 BP 147/88 04/10/22 12:55 Pulse Ox 95 04/10/22 12:55 FiO2 Intake & Output 04/09/22 04/10/22 04/10/22 18:59 06:59 18:59 Intake Total 66.026 100 Balance 66.026 100 Weight 108.862 kg 108.862 kg Intake: IV 100 Intake, IV Titration 66.026 Amount Heparin Sod,Pork in 0.45% 66.026 NaCl 25,000 unit In 0.45 % NaCl 1 250ml.bag @ 9.19 UNITS/KG/HR 10.004 mls/ hr IV .Q24H [facility] Rx#: [id number] Other: Voiding Method Toilet Toilet # Voids 2 - Labs CBC & Chem 7: 04/10/22 01:12 04/09/22 18:56 Labs: Abnormal Lab Results - Last 24 Hours (Table) 04/09/22 04/10/22 04/10/22 Range/Units 18:56 01:12 07:35 APTT 35.8 H (22.0-30.0) sec Carbon Dioxide 31 H (22-30) mmol/L Glucose 184 H (74-99) mg/dL POC Glucose (mg/dL) 205 H (70-110) mg/dL 04/10/22 04/10/22 Range/Units 09:38 12:20 APTT 47.8 H (22.0-30.0) sec Carbon Dioxide (22-30) mmol/L Glucose (74-99) mg/dL POC Glucose (mg/dL) 185 H (70-110) mg/dL
[2022-04-10] MEDS ORDERED: HYDROcodone/APAP 5-325MG 1 EACH TAB PO PRN (14:06)
[2022-04-10] MEDS ORDERED: ACETAMINOPHEN TAB 325 MG TAB PO PRN (14:06)
[2022-04-10] MEDS ORDERED: MELATONIN 3 MG TABLET PO PRN (14:06)
[2022-04-10] MEDS ORDERED: NALOXONE 0.4 MG/ML 1 ML VIAL IV PRN (14:06)
[2022-04-10] MEDS ORDERED: MORPHINE SULFATE 4 MG/ML SYRINGE IVP PRN (14:06)
[2022-04-10] MEDS ORDERED: ONDANSETRON 4 MG/2 ML VIAL IVP PRN (14:06)
[2022-04-10 17:23] LABS: Glucose,Whole Blood 303 mg/dL (70-110)
[2022-04-10 20:27] LABS: Glucose,Whole Blood 294 mg/dL (70-110)
[2022-04-10] MEDS: ATORVASTATIN 80 MG TAB PO SCH (20:50)
[2022-04-10 21:23] LABS: Chol/HDL Ratio 4.37 Ratio; LDL Cholesterol,Calculated 31.2 mg/dL (0.0-131.0)
[2022-04-11] MEDS: SODIUM CHLORIDE 0.9% 1,000 ML in EMPTY BAG 1 BAG IV SCH (04:32)
[2022-04-11] MEDS: oxyCODONE-APAP 10-325MG 1 EACH TAB PO SCH (04:34)
[2022-04-11 07:19] VITALS: BP 145/90; PULSE 57; RESP 18; TEMP 97.7
[2022-04-11 07:47] LABS: Glucose,Whole Blood 194 mg/dL (70-110)
[2022-04-11] MEDS: carvediloL 12.5 MG TAB PO SCH (07:58)
[2022-04-11] MEDS: hydrALAZINE HCL 50 MG TAB PO SCH (07:59)
[2022-04-11] MEDS: TRIAMTERENE-HCTZ 37.5-25MG 1 EACH TAB PO SCH (07:59)
[2022-04-11] MEDS: ASPIRIN 81 MG PO SCH (07:59)
[2022-04-11] MEDS: INSULIN ASPART (NovoLOG) 100 UNIT/ML VIAL SQ SCH (08:58)
[2022-04-11] MEDS ORDERED: CLOPIDOGREL 75 MG TAB PO SCH (09:00)
--- NOTE | 2022-04-11 09:59 | P.PN ---
Subjective Progress Note Date: 04/11/22 HISTORY OF PRESENT ILLNESS: This is a 51-year-old male with a past medical history significant for coronary artery disease with previous PCI, hypertension, hyperlipidemia, diabetes, and nicotine dependence. Patient follows in the office with Dr. Ha. We have been asked to see the patient in consultation for chest pain. Patient examined at the bedside. Patient states yesterday he was outside mowing a lot and he suddenly began to have chest discomfort. He reports the pain was in the left side of his chest and radiated into his left shoulder and neck. He also reports feeling short of breath. He states that he went inside to sit down for a few minutes. He took a nitro which relieved his pain. Shortly afterwards his pain returned so he took another nitro which once again relieved his pain. He states this pain felt similar to his previous heart attacks. At that time he decided to come to the emergency room for further evaluation. The patient states he had another episode of chest pain overnight in the emergency room. He states a nitro patch was applied and he has been chest pain-free since that time. The patient states he has been compliant with all of his cardiac medications. The patient is a current smoker and smokes 1/21 pack per day. * EKG reveals sinus mechanism with right bundle branch block. Diffuse T-wave inversions * Chest xray negative for acute process * Laboratory data: WBC 7.0. Hemoglobin 13.8. Platelet count 195. Sodium 139. Potassium 3.5. BUN 17. Creatinine 1.0. Troponin negative 3. * Current home cardiac medications include Lipitor 80 mg at night, amlodipine 5 mg daily, carvedilol 25 mg twice a day, hydralazine 50 mg twice a day * Most recent echocardiogram obtained in September 2019 revealed ejection fraction 50-55%, mild MR, mild TR * Cardiac catheterization history: July 2020 revealing patent stent to the LAD. Patient underwent stenting of the right PLV and distal RCA. 04/11/2022 Patient is status post cardiac catheterization. He underwent successful stenting of the first diagonal branch. Patient examined this morning at the bedside. He denies chest pain or pressure. Denies shortness of breath. Vital signs are stable. He is hoping to be discharged home today. PHYSICAL EXAM: VITAL SIGNS: Reviewed. GENERAL: Well-developed in no acute distress. HEENT: Head is normocephalic. Pupils are equal, round. Sclerae anicteric. Mucous membranes of the mouth are moist. Neck supple. No JVD or thyromegaly LUNGS: Respirations even and unlabored. Lungs essentially clear to auscultation bilaterally. HEART: Regular rate and rhythm. S1 and S2 heard. ABDOMEN: Soft. Nondistended. Nontender. EXTREMITIES: Normal range of motion. No clubbing or cyanosis. Peripheral pulse s intact. No lower extremity edema NEUROLOGIC: Awake and alert. Oriented x 3. ASSESSMENT: Unstable angina Coronary artery disease with previous PCI Hypertension Hyperlipidemia Diabetes Nicotine dependence PLAN: Continue current cardiac medications Continue dual antiplatelet therapy Patient is stable for discharge home today from a cardiac standpoint with close outpatient follow-up Nurse practitioner note has been reviewed by physician. Signing provider agrees with the documented findings, assessment, and plan of care. Objective - Vital Signs Vital signs: Vital Signs Temp 97.7 F 04/11/22 07:00 Pulse 57 L 04/11/22 07:00 Resp 18 04/11/22 07:00 BP 145/90 04/11/22 07:00 Pulse Ox 95 04/11/22 07:00 FiO2 Intake & Output 04/10/22 04/11/22 04/11/22 18:59 06:59 18:59 Intake Total 580 120 Balance 580 120 Intake: IV 100 Oral 480 120 Other: Voiding Method Toilet Toilet # Voids 1 2 1 - Labs CBC & Chem 7: 04/10/22 01:12 04/09/22 18:56 Labs: Abnormal Lab Results - Last 24 Hours (Table) 04/10/22 04/10/22 04/10/22 Range/Units 09:38 09:38 09:38 APTT 47.8 H (22.0-30.0) sec POC Glucose (mg/dL) (70-110) mg/dL Hemoglobin A1c 10.2 H (0.0-6.0) % Triglycerides 295.00 H (0.00-149.00) mg/dL VLDL Cholesterol, Calc 59.00 H (5.00-40.00) mg/dL HDL Cholesterol 26.80 L (40.00-60.00) mg/dL 04/10/22 04/10/22 04/10/22 Range/Units 12:20 17:21 20:26 APTT (22.0-30.0) sec POC Glucose (mg/dL) 185 H 303 H 294 H (70-110) mg/dL Hemoglobin A1c (0.0-6.0) % Triglycerides (0.00-149.00) mg/dL VLDL Cholesterol, Calc (5.00-40.00) mg/dL HDL Cholesterol (40.00-60.00) mg/dL 04/11/22 Range/Units 07:13 APTT (22.0-30.0) sec POC Glucose (mg/dL) 194 H (70-110) mg/dL Hemoglobin A1c (0.0-6.0) % Triglycerides (0.00-149.00) mg/dL VLDL Cholesterol, Calc (5.00-40.00) mg/dL HDL Cholesterol (40.00-60.00) mg/dL
[2022-04-11 10:36] LABS: Basophils # (A) 0.07 X 10*3/uL (0.00-0.10); Eosinophils # (A) 0.32 X 10*3/uL (0.04-0.35); Eosinophils % (A) 4.7 %; HGB 13.5 g/dL (13.0-17.0); Immature Grans, Automated 0.3 %; Lymphocytes # (A) 1.36 X 10*3/uL (0.90-5.00); Lymphocytes % (A) 20.2 %; MCH 28.1 pg (27.0-32.0); MCHC 32.1 g/dL (32.0-37.0); MCV 87.3 fL (80.0-97.0); Mean Platelet Volume 11.2 fL (9.5-12.2); Monocytes # (A) 0.52 X 10*3/uL (0.20-1.00); Monocytes % (A) 7.7 %; NRBC Per 100 WBC 0 /100 WBCS (0.0-0.0); Neutrophils # (A) 4.45 X 10*3/uL (1.80-7.70); Neutrophils % (A) 66.1 %; Platelet Count 202 X 10*3/uL (140-440); RBC 4.81 X 10*6/uL (4.40-5.60); RDW 13.4 % (11.5-14.5); WBC 6.74 X 10*3/uL (4.50-10.00)
--- NOTE | 2022-04-11 11:10 | P.DS ---
Providers Date of admission: 04/10/22 14:15 Expected date of discharge: 04/11/22 Attending physician: Lia Valles MD Consults: 04/09/22 19:46 Consult Physician Routine Consulting Provider: Talisha Ha Consult Reason/Comments: UA Do you want consulting provider notified?: Yes 04/10/22 12:10 Consult Physician Routine Consulting Provider: [facility] Consult Reason/Comments: Post Interventional Patient Do you want consulting provider notified?: Already Contacted Primary care physician: Fran Agee [facility] Course: Discharge Diagnosis: Unstable angina resulting in successful stenting to first diagonal branch Coronary artery disease with history of previous stents, continue cardiac medication regimen with Plavix, aspirin, atorvastatin, carvedilol, amlodipine. Hypertension, continue daily medication regimen with hydralazine, Maxzide, amlodipine, and carvedilol. Hyperlipidemia, continue home medication regimen with atorvastatin 80 mg nightly. Hypertriglyceridemia with triglyceride level of 295.00, patient started on fenofibrate. Type 2 insulin-dependent diabetes mellitus uncontrolled with hemoglobin A1c of 10.2%. Would like to increase home insulin, however patient reports this was just done by his PCP. Had long discussion with patient and his regarding elevated glucose levels and adverse effects this has on one's body. Strongly encourage patient to follow a heart healthy and carb consistent diet and monitor blood glucose levels 4 times daily with meals and at bedtime and document these findings in a log to bring with him to his next doctor's appointment as it is highly likely that he will need to have his insulin dose increased. Nicotine dependence, strongly recommend smoking cessation. Hospital Course: Patient is a very pleasant 51-year-old male with a past medical history of coronary artery disease status post multiple stents, hypertension, hyperlipidemia, and type 2 insulin-dependent diabetes mellitus. He presented to the emergency department on 04/09/22 with a chief complaint of chest pain/tightness radiating up into his left jaw and shoulder accompanied by shortness of breath and diaphoresis. Patient reported that this pain came on suddenly while he was mowing his lawn. Patient reported taking sublingual nitroglycerin resulting in resolution of this pain but states it returned while at rest one hour later since he came to the emergency department for evaluation. Patient underwent full evaluation in the emergency department. EKG was completed revealing sinus rhythm at 81 bpm with a right bundle branch block with diffuse T-wave inversion in leads I, II, III, aVL and V1 through V6. Initial troponin 0.017 CBC and CMP showing no significant abnormalities. ProBNP 180. Covid PCR negative. Chest x-ray negative for acute cardiopulmonary process. Patient was admitted under our services with consultation to cardiology. Patient monitored overnight and troponins trended all negative at 0.017, 0.013, and 0.015. Repeat EKG completed in the morning revealing sinus bradycardia with right bundle branch block and occasional PVCs with T-wave inversion in lateral leads aVL and V4 through V6. Cardiology evaluated and took patient for cardiac catheterization on 04/10/22. Patient underwent successful stent placement to the first diagonal branch. Hemoglobin A1c elevated at 10.2%. Triglycerides also elevated at 295.00. Had long discussion with patient and his regarding elevated glucose levels and adverse effects this has on one's body. Strongly encouraged patient to follow a heart healthy and carb consistent diet and monitor blood glucose levels 4 times daily with meals and at bedtime and document these findings in a log to bring with him to his next doctor's appointment as it is highly likely that he will need to have his insulin dose increased (did not increase upon discharge as patient reports this was just increased by his PCP one week ago). Started patient on fenofibrate for elevated triglyceride levels of 295 despite atorvastatin 80 mg nightly x many years. Lastly, and was advised that patient stop smoking. Cardiac cath access site right wrist showing no signs of bleeding, bruising, or hematoma. Patient is medically stable at this time and has been cleared by cardiology for follow-up outpatient in their office in one week. Prescription sent for aspirin, Plavix, and fenofibrate. Patient to follow-up outpatient with PCP in 1-2 days and cardiology in 1 week. Physical examination: Patient seen and examined at bedside. Vital signs reviewed and stable. General: Nontoxic, no distress and appears stated age. Derm: Skin warm and dry, normal coloration for ethnicity. Head: Atraumatic, normocephalic and symmetric. Eyes: EOMs intact, no lid lag, and anicteric sclera Mouth: no lip lesions, mucus membranes moist Cardiovascular: regular rate and rhythm with normal S1S2, no murmur, positive posterior tibial pulses bilaterally, and cap refill < 2 seconds. Cardiac cath access site right wrist showing no signs of bleeding, bruising, or hematoma. Lungs: Respirations even, regular, and unlabored on room air. Lungs CTA bilaterally, no rhonchi, no rales, no wheezing, and no accessory muscle usage. Abdominal: soft, nontender to palpation, no guarding, no appreciable organomegaly Ext: ROM intact. No gross muscle atrophy, no edema, no contractures. Neuro: Speech clear, face symmetrical and CN II-XII grossly intact with no noted focal neuro deficits. Movement and sensation intact. Psych: Alert and oriented to person, place, time, and situation. Appropriate and pleasant affect. A total of 40 minutes of time were spent preparing this complex discharge summary. Pt was discharged on 04/11/22 at 10:42 AM. I reviewed the documentation as provided by the DENZEL above, who is the original author of this note. I agree with the documented assessment and plan, with the following changes: none Patient Condition at Discharge: Stable Plan - Discharge Summary Discharge Rx Participant: No New Discharge Prescriptions: New Fenofibrate 120 mg PO DAILY 60 Days #60 tablet Clopidogrel [Plavix] 75 mg PO DAILY #90 tab Aspirin 81 mg PO DAILY #90 tab Nitroglycerin Sl Tabs [Nitrostat] 0.4 mg SUBLINGUAL Q5M PRN tab PRN Reason: Chest Pain Continue Atorvastatin [Lipitor] 80 mg PO HS Nitroglycerin Sl Tabs [Nitrostat] 0.4 mg SUBLINGUAL Q5M PRN #25 tab PRN Reason: Chest Pain glipiZIDE [Glucotrol] 10 mg PO BID Triamterene-Hctz 37.5-25Mg [Maxzide 37.5-25] 1 tab PO DAILY carvediloL [Coreg] 25 mg PO BID amLODIPine [Norvasc] 5 mg PO DAILY hydrALAZINE HCL [Apresoline] 50 mg PO BID oxyCODONE-APAP 10-325MG [Percocet 10-325 mg] 1 tab PO TID Insulin Aspart Prot/Insuln Asp [Novolog Mix 70-30 Flexpen] 20 unit SQ BID metFORMIN HCL [Glucophage] 1,000 mg PO BID Discharge Medication List Atorvastatin [Lipitor] 80 mg PO HS 11/11/18 [History] Nitroglycerin Sl Tabs [Nitrostat] 0.4 mg SUBLINGUAL Q5M PRN #25 tab 11/12/18 [Rx] glipiZIDE [Glucotrol] 10 mg PO BID 01/05/19 [History] Triamterene-Hctz 37.5-25Mg [Maxzide 37.5-25] 1 tab PO DAILY 01/23/19 [History] carvediloL [Coreg] 25 mg PO BID 05/11/19 [History] amLODIPine [Norvasc] 5 mg PO DAILY 07/21/20 [History] hydrALAZINE HCL [Apresoline] 50 mg PO BID 07/21/20 [History] oxyCODONE-APAP 10-325MG [Percocet 10-325 mg] 1 tab PO TID 07/21/20 [History] Insulin Aspart Prot/Insuln Asp [Novolog Mix 70-30 Flexpen] 20 unit SQ BID 04/09/22 [History] metFORMIN HCL [Glucophage] 1,000 mg PO BID 04/09/22 [History] Aspirin 81 mg PO DAILY #90 tab 04/11/22 [Rx] Clopidogrel [Plavix] 75 mg PO DAILY #90 tab 04/11/22 [Rx] Fenofibrate 120 mg PO DAILY 60 Days #60 tablet 04/11/22 [Rx] Nitroglycerin Sl Tabs [Nitrostat] 0.4 mg SUBLINGUAL Q5M PRN tab 04/11/22 [Rx] Follow up Appointment(s)/Referral(s): Talisha Ha MD [STAFF PHYSICIAN] - 1 Week Anuel Peters MD [Primary Care Provider] - 1-2 days Activity/Diet/Wound Care/Special Instructions: Activity: As tolerated. Take breaks as needed. Diet: Heart healthy and carb consistent diet. Avoid salts, or foods with hidden salts such as canned or boxed foods and frozen dinners. Extra salt makes your heart work harder and traps the fluid in your body for longer. Special Instructions: Take all of your medications as directed and remember to keep all of your doctor's appointments and follow-up as needed. Highly recommend monitoring your blood glucose levels 4 times daily with meals and at bedtime and documenting these results in a daily log/Journal to bring wit h you to your next doctor's appointment as your insulin dose may likely need to be increased. Your hemoglobin A1c was 10.2%. Highly recommend obtaining control of your blood glucose levels and decreasing your hemoglobin A1c below 6%. With higher blood glucose levels this causes your blood to be thicker therefore increasing the workload of your heart and decreasing circulation to your small blood vessels which can result in significant deterioration of your health. I try to explain elevated glucose levels to my patients by telling you to think about a cake mix with the powder in the water it is smooth and liquidy, but as we add sugar to this mix..it thickens and thus is harder to mix and the more sugar added the thicker the mix. Please follow a heart healthy and carb consistent diet and work toward lowering these levels. Strongly recommend smoking cessation. Thank you for allowing us to participate in your care, it was truly a pleasure having you for our patient!!! Discharge Disposition: HOME SELF-CARE
[2022-04-11 11:19] LABS: Albumin 3.9 g/dL (3.8-4.9); Albumin/Globulin Ratio 1.77 (1.60-3.17); Anion Gap 10.7 mmol/L (10.00-18.00); BUN/Creat Ratio 15.27 Ratio (12.00-20.00); Blood Urea Nitrogen 16.8 mg/dL (9.0-27.0); Calcium 9.1 mg/dL (8.7-10.3); Carbon Dioxide 28.3 mmol/L (20.0-27.5); Globulin 2.2 g/dL (1.6-3.3); Magnesium 1.8 mg/dL (1.5-2.4); Non-African American GFR(CKD) 76.8 (60.0-200.0); Potassium 3.6 mmol/L (3.5-5.5); Total Bilirubin 0.6 mg/dL (0.30-1.20); Total Protein 6.1 g/dL (6.2-8.2)
--- NOTE | 2022-04-11 12:27 | CA ---
Transthoracic Echo Report Name: Jeet Gnozalez Age: 51 Gender: M : 1970 Exam Date: 04/11/2022 08:39 Exam Location: [facility] Ht (in): 75 Wt (lb): 240 Ordering Physician: Gracia Oliver Attending/Referring Phys: [id number], [employer] Paulina Benz RDCS Procedure CPT: Indications: LV functio Cardiac Hx: Technical Quality: Fair Contrast 1: Total Dose (mL): Contrast 2: Total Dose (mL): MEASUREMENTS (Male / Female) Normal Values 2D ECHO LV Diastolic Diameter PLAX 5.4 cm 4.2 - 5.9 / 3.9 - 5.3 cm LV Systolic Diameter PLAX 3.8 cm IVS Diastolic Thickness 1.8 cm 0.6 - 1.0 / 0.6 - 0.9 cm LVPW Diastolic Thickness 1.4 cm 0.6 - 1.0 / 0.6 - 0.9 cm LV Relative Wall Thickness 0.6 RV Internal Dim ED PLAX 4.2 cm LA Volume 67.6 cm??? 18 - 58 / 22 - 52 cm??? M-MODE Aortic Root Diameter MM 3.4 cm LA Systolic Diameter MM 4.6 cm LA Ao Ratio MM 1.4 AV Cusp Separation MM 2.0 cm DOPPLER LVOT Peak Velocity 91.6 cm/s LVOT Peak Gradient 3.4 mmHg MV Area PHT 4.1 cm??? Mitral E Point Velocity 59.0 cm/s Mitral A Point Velocity 54.5 cm/s Mitral E to A Ratio 1.1 MV Deceleration Time 185.6 ms TR Peak Velocity 160.7 cm/s TR Peak Gradient 10.3 mmHg Right Ventricular Systolic Press 15.3 mmHg FINDINGS Left Ventricle Moderately increased left ventricular wall thickness. No obvious regional wall motion abnormalities. Left ventricular ejection fraction is estimated at55-60 %. Right Ventricle Moderate right ventricular dilatation. Right ventricular systolic pressure within normal limits. Right Atrium Right atrium not well visualized. Left Atrium Mildly increased left atrial volume. Mildly increased left atrial area. No evidence for an atrial septal defect. Mitral Valve No mitral regurgitation. No mitral stenosis. Aortic Valve No aortic valve stenosis or regurgitation. Tricuspid Valve Structurally normal tricuspid valve. Mild tricuspid regurgitation. Pulmonic Valve Trace pulmonic regurgitation. Pericardium No pericardial effusion. Aorta Normal size aortic root and proximal ascending aorta. CONCLUSIONS Normal left ventricular dimension and systolic function Dilated right ventricle with a normal function Previewed by: Dr. Romero Arriaza MD (Electronically Signed) Final Date: 11 April 2022 12:26
== END 2022-04-11 11:16 | disposition home or self-care (01) | DRG 247 ==
LOC: EC 18:17 → 6NMEDSUR 19:46 → OBSVTOIN 04-10 14:15
PROVIDERS: ADMIT Internal Medicine; ATTEND Internal Medicine
PROC: B2111ZZ Fluoroscopy of Multiple Coronary Arteries using Low Osmolar Contrast (ICD-10-PCS; principal; 2022-04-10 10:53)
PROC: 027034Z Dilation of Coronary Artery, One Artery with Drug-eluting Intraluminal Device, Percutaneous Approach (ICD-10-PCS; principal; 2022-04-10 10:53)
PROC: 4A023N7 Measurement of Cardiac Sampling and Pressure, Left Heart, Percutaneous Approach (ICD-10-PCS; principal; 2022-04-10 10:53)
DX: I25.110 Atherosclerotic heart disease of native coronary artery with unstable angina pectoris (principal); I10 Essential (primary) hypertension; E11.65 Type 2 diabetes mellitus with hyperglycemia; F17.210 Nicotine dependence, cigarettes, uncomplicated; I45.10 Unspecified right bundle-branch block; E78.5 Hyperlipidemia, unspecified; E78.1 Pure hyperglyceridemia; I08.1 Rheumatic disorders of both mitral and tricuspid valves; R00.1 Bradycardia, unspecified; Z20.822 Contact with and (suspected) exposure to COVID-19; R05.9 Cough, unspecified; R09.81 Nasal congestion; K21.9 Gastro-esophageal reflux disease without esophagitis; K44.9 Diaphragmatic hernia without obstruction or gangrene; G89.29 Other chronic pain; M54.50 Low back pain, unspecified; E66.9 Obesity, unspecified; Z68.30 Body mass index [BMI] 30.0-30.9, adult; I25.2 Old myocardial infarction; Z71.6 Tobacco abuse counseling; Z71.3 Dietary counseling and surveillance; Z79.4 Long term (current) use of insulin; Z79.84 Long term (current) use of oral hypoglycemic drugs; Z95.5 Presence of coronary angioplasty implant and graft; Z79.02 Long term (current) use of antithrombotics/antiplatelets; Z79.82 Long term (current) use of aspirin; Z79.899 Other long term (current) drug therapy; Z88.1 Allergy status to other antibiotic agents; Z86.79 Personal history of other diseases of the circulatory system; Z86.14 Personal history of Methicillin resistant Staphylococcus aureus infection; Z98.890 Other specified postprocedural states; Z82.49 Family history of ischemic heart disease and other diseases of the circulatory system; Z83.3 Family history of diabetes mellitus; Z80.1 Family history of malignant neoplasm of trachea, bronchus and lung
CPT/HCPCS: 36415; 71046; 80053; 80061; 83036; 83735; 83880; 84484; 85025; 85610; 85730; 87635; 93005; 93306; 93458; 96374; 99291

== ENCOUNTER 2023-05-13 18:17 | Observation (INO) | payer OTHER, BC ==
[2023-05-13 18:26] LABS: Glucose,Whole Blood 192 mg/dL (70-110)
[2023-05-13] MEDS ORDERED: SODIUM CHLORIDE 0.9% 1,000 ML IV STA (19:09)
[2023-05-13] MEDS ORDERED: VANCOMYCIN IV PER PHARMACY 1 EACH MISC MISCELLANE PRN (19:09)
--- NOTE | 2023-05-13 19:12 | ED ---
Extremity Problem HPI - General Chief complaint: Extremity Problem,Nontraumatic Stated complaint: Rt leg infection Time Seen by Provider: 05/13/23 18:32 Source: patient, family, RN notes reviewed, old records reviewed Mode of arrival: ambulatory Limitations: no limitations - History of Present Illness Initial comments: This is a 52-year-old male to the emergency department for evaluation of right leg pain right leg swelling and edema redness. Tenderness severe pain in his right lower extremity his back. Patient's been on antibiotics for possible c ourse of antibiotics with no help history of diabetes and osteomyelitis. Patient does admit to fevers MD Complaint: extremity pain, extremity swelling -: days(s) Location: right, lower extremity -: Yes myalgia, Yes fever Radiation: proximal Severity scale (1-10): 7 Quality: sharp Consistency: constant Worsens with: nothing Associated Symptoms: denies other symptoms - Related Data Home Medications Medication Instructions Recorded Confirmed Atorvastatin [Lipitor] 80 mg PO HS 11/11/18 04/09/22 glipiZIDE [Glucotrol] 10 mg PO BID 01/05/19 04/09/22 Triamterene-Hctz 37.5-25Mg 1 tab PO DAILY 01/23/19 04/09/22 [Maxzide 37.5-25] carvediloL [Coreg] 25 mg PO BID 05/11/19 04/09/22 amLODIPine [Norvasc] 5 mg PO DAILY 07/21/20 04/09/22 hydrALAZINE HCL [Apresoline] 50 mg PO BID 07/21/20 04/09/22 oxyCODONE-APAP 10-325MG [Percocet 1 tab PO TID 07/21/20 04/09/22 10-325 mg] Insulin Aspart Prot/Insuln Asp 20 unit SQ BID 04/09/22 04/09/22 [Novolog MIX 70-30 Flexpen] metFORMIN HCL [Glucophage] 1,000 mg PO BID 04/09/22 04/09/22 Previous Rx's Medication Instructions Recorded Nitroglycerin Sl Tabs [Nitrostat] 0.4 mg SUBLINGUAL Q5M PRN #25 tab 11/12/18 Aspirin 81 mg PO DAILY #90 tab 04/11/22 Clopidogrel [Plavix] 75 mg PO DAILY #90 tab 04/11/22 Fenofibrate 120 mg PO DAILY 60 Days #60 tablet 04/11/22 Nitroglycerin Sl Tabs [Nitrostat] 0.4 mg SUBLINGUAL Q5M PRN tab 04/11/22 Allergies Allergy/AdvReac Type Severity Reaction Status Date / Time vancomycin Allergy Rash/Hives Verified 04/09/22 20:09 Review of Systems ROS Statement: Those systems with pertinent positive or pertinent negative responses have been documented in the HPI. ROS Other: All systems not noted in ROS Statement are negative. Past Medical History Past Medical History: Chest Pain / Angina, Diabetes Mellitus, GERD/Reflux, Hypertension, Myocardial Infarction ([place]), Syncope Additional Past Medical History / Comment(s): NIDDM type II, hiatal hernia, nephrolithiasis, chronic low back pain, bilateral leg numbness, R great toe diabetic foot ulcer, past left olecranon bursitis, osteomyelitis in L4-L5 w/abx treatment via PICC line (2018), managed by dr tran. History of Any Multi-Drug Resistant Organisms: MRSA Date of last positivie culture/infection: 12/21/16 MDRO Source:: Left axilla, BACK AND FACE Past Surgical History: Appendectomy, Cholecystectomy, Heart Catheterization, Heart Catheterization With Stent, Orthopedic Surgery Additional Past Surgical History / Comment(s): RENAL ANGIOGRAM 2005 for HTN, cardiac cath 2005, LT WRIST TENDON REPAIR 2013, RT ROTATOR CUFF REPAIR, bila teral knee arthroscopies, I&D L axillae, PICC LINES REMOVED. [address] Ha in December of 2018 Past Anesthesia/Blood Transfusion Reactions: No Reported Reaction Date of Last Stent Placement:: 12/2018 Past Psychological History: No Psychological Hx Reported Smoking Status: Current every day smoker Past Alcohol Use History: None Reported Past Drug Use History: None Reported - Past Family History Father Family Medical History: Coronary Artery Disease (CAD), Diabetes Mellitus, Hypertension Additional Family Medical History / Comment(s): pt. reports his father had a four vessel CABG Mother Family Medical History: Cancer, Hypertension Additional Family Medical History / Comment(s): LUNG CANCER(NON SMOKER) General Exam Limitations: no limitations General appearance: alert, in no apparent distress Head exam: Present: atraumatic, normocephalic, normal inspection Eye exam: Present: normal appearance, PERRL, EOMI. Absent: scleral icterus, conjunctival injection, periorbital swelling ENT exam: Present: normal exam, mucous membranes moist Neck exam: Present: normal inspection. Absent: tenderness, meningismus, lymphadenopathy Respiratory exam: Present: normal lung sounds bilaterally. Absent: respiratory distress, wheezes, rales, rhonchi, stridor Cardiovascular Exam: Present: regular rate, normal rhythm, normal heart sounds. Absent: systolic murmur, diastolic murmur, rubs, gallop, clicks GI/Abdominal exam: Present: soft, normal bowel sounds. Absent: distended, tenderness, guarding, rebound, rigid Extremities exam: Present: normal inspection, full ROM, normal capillary refill. Absent: tenderness, pedal edema, joint swelling, calf tenderness Back exam: Present: normal inspection Neurological exam: Present: alert, oriented X3, CN II-XII intact Psychiatric exam: Present: normal affect, normal mood Skin exam: Present: warm, dry, intact, normal color. Absent: rash Course Vital Signs 05/13/23 18:18 Temperature 98.4 F Pulse Rate 59 L Respiratory 16 Rate Blood Pressure 204/108 O2 Sat by Pulse 99 Oximetry - Reevaluation(s) Reevaluation #1: 05/13/23 20:13 Medical records reviewed Reevaluation #2: 05/13/23 20:13 Patient symptoms are unchanged as well as back pain is improved Reevaluation #3: 05/13/23 20:13 Patient informed results questions answered Reevaluation #4: 05/13/23 20:13 Was pt. sent in by a medical professional or institution (, PA, PHYSICAL SCIENCE TEACHER, urgent care, hospital, or care home...) When possible be specific @ -no Did you speak to anyone other than the patient for history (EMS, parent, family, police, friend...)? What history was obtained from this source @ -no Did you review nursing and triage notes (agree or disagree)? Why? @ -agree Are old charts reviewed (outside hosp., previous admission, EMS record, old EKG, old radiological studies, urgent care reports/EKG's, care home records)? Report findings @ -yes Differential Diagnosis (chest pain, altered mental status, abdominal pain women, abdominal pain men, vaginal bleeding, weakness, fever, dyspnea, syncope, headache, dizziness, GI bleed, back pain, seizure, CVA, palpatations, mental health, musculoskeletal)? @ -prior EKG interpreted by me (3pts min.). @ -yes X-rays interpreted by me (1pt min.). @ -yes CT interpreted by me (1pt min.). @ -no U/S interpreted by me (1pt. min.). @ -no What testing was considered but not performed or refused? (CT, X-rays, U/S, labs)? Why? @ -none What meds were considered but not given or refused? Why? @ -none Did you discuss the management of the patient with other professionals (shaniqua celaya i.e. , PA, PHYSICAL SCIENCE TEACHER, lab, RT, psych nurse, social work job titles, cardroom manager, teacher, admissions officer, vocational case manager)? Give summary @ -no Was smoking cessation discussed for >3mins.? @ -no Was critical care preformed (if so, how long)? @ -no Were there social determinants of health that impacted care today? How? (Homelessness, low income, unemployed, alcoholism, drug addiction, transportation, low edu. Level, literacy, decrease access to med. care, intermediate, rehab)? @ -none Was there de-escalation of care discussed even if they declined (Discuss DNR or withdrawal of care, Hospice)? DNR status @ -no What co-morbidities impacted this encounter? (DM, HTN, Smoking, COPD, CAD, Cancer, CVA, ARF, Chemo, Hep., AIDS, mental health diagnosis, sleep apnea, morbid obesity)? @ -none Was patient admitted / discharged? Hospital course, mention meds given and route, prescriptions, significant lab abnormalities, going to OR and other pertinent info. @ - Undiagnosed new problem with uncertain prognosis? @ -no Drug Therapy requiring intensive monitoring for toxicity (Heparin, Nitro, Insulin, Cardizem)? @ -no Were any procedures done? @ -no Diagnosis/symptom? @ - Acute, or Chronic, or Acute on Chronic? @ -Acute Uncomplicated (without systemic symptoms) or Complicated (systemic symptoms)? @ -Complicated Side effects of treatment? @ -no Exacerbation, Progression, or Severe Exacerbation? @ -exacerbation Poses a threat to life or bodily function? How? (Chest pain, [place], [place], pneumonia, PE, COPD, DKA, ARF, appy, cholecystitis, CVA, Diverticulitis, Homicidal, Suicidal, threat to staff... and all critical care pts) @ -yes - Consultations Consultation #1: Spoke with [facility] who agree to admit the patient Medical Decision Making - Medical Decision Making 52 male DF for evaluation of cellulitis right leg diabetic ulcer nonhealing. Patient be admitted for IV antibiotics with episodic fevers, history of os teomyelitis history of bacteremia and concern for same - Lab Data Result diagrams: 05/13/23 19:11 05/13/23 19:11 Lab Results 05/13/23 05/13/23 05/13/23 Range/Units 18:24 19:11 19:11 WBC 8.9 (3.8-10.6) k/uL RBC 5.69 (4.30-5.90) m/uL Hgb 16.4 (13.0-17.5) gm/dL Hct 48.7 (39.0-53.0) % MCV 85.6 (80.0-100.0) fL MCH 28.8 (25.0-35.0) pg MCHC 33.7 (31.0-37.0) g/dL RDW 13.9 (11.5-15.5) % Plt Count 219 (150-450) k/uL MPV 8.3 Neutrophils % 72 % Lymphocytes % 17 % Monocytes % 6 % Eosinophils % 3 % Basophils % 1 % Neutrophils # 6.4 (1.3-7.7) k/uL Lymphocytes # 1.5 (1.0-4.8) k/uL Monocytes # 0.5 (0-1.0) k/uL Eosinophils # 0.3 (0-0.7) k/uL Basophils # 0.1 (0-0.2) k/uL Sodium 140 (137-145) mmol/L Potassium 4.0 (3.5-5.1) mmol/L Chloride 100 (98-107) mmol/L Carbon Dioxide 28 (22-30) mmol/L Anion Gap 12 mmol/L BUN 18 (9-20) mg/dL Creatinine 0.94 (0.66-1.25) mg/dL Est GFR (CKD-EPI)AfAm >90 (>60 ml/min/1.73 sqM) Est GFR (CKD-EPI)NonAf >90 (>60 ml/min/1.73 sqM) Glucose 188 H (74-99) mg/dL POC Glucose (mg/dL) 192 H (70-110) mg/dL POC Glu Senior Bioinformatics Specialist ID Saul Mckeon Plasma Lactic Acid Cb (0.7-2.0) mmol/L Calcium 10.0 (8.4-10.2) mg/dL Phosphorus 4.0 (2.5-4.5) mg/dL Magnesium 1.7 (1.6-2.3) mg/dL Total Bilirubin 0.7 (0.2-1.3) mg/dL AST 29 (17-59) U/L ALT 27 (4-49) U/L Alkaline Phosphatase 89 (38-126) U/L Troponin I (0.000-0.034) ng/mL C-Reactive Protein (<1.0) mg/dL Total Protein 8.3 H (6.3-8.2) g/dL Albumin 4.8 (3.5-5.0) g/dL 05/13/23 05/13/23 05/13/23 Range/Units 19:11 19:11 19:13 WBC (3.8-10.6) k/uL RBC (4.30-5.90) m/uL Hgb (13.0-17.5) gm/dL Hct (39.0-53.0) % MCV (80.0-100.0) fL MCH (25.0-35.0) pg MCHC (31.0-37.0) g/dL RDW (11.5-15.5) % Plt Count (150-450) k/uL MPV Neutrophils % % Lymphocytes % % Monocytes % % Eosinophils % % Basophils % % Neutrophils # (1.3-7.7) k/uL Lymphocytes # (1.0-4.8) k/uL Monocytes # (0-1.0) k/uL Eosinophils # (0-0.7) k/uL Basophils # (0-0.2) k/uL Sodium (137-145) mmol/L Potassium (3.5-5.1) mmol/L Chloride (98-107) mmol/L Carbon Dioxide (22-30) mmol/L Anion Gap mmol/L BUN (9-20) mg/dL Creatinine (0.66-1.25) mg/dL Est GFR (CKD-EPI)AfAm (>60 ml/min/1.73 sqM) Est GFR (CKD-EPI)NonAf (>60 ml/min/1.73 sqM) Glucose (74-99) mg/dL POC Glucose (mg/dL) (70-110) mg/dL POC Glu Senior Bioinformatics Specialist ID Plasma Lactic Acid Cb 1.9 (0.7-2.0) mmol/L Calcium (8.4-10.2) mg/dL Phosphorus (2.5-4.5) mg/dL Magnesium (1.6-2.3) mg/dL Total Bilirubin (0.2-1.3) mg/dL AST (17-59) U/L ALT (4-49) U/L Alkaline Phosphatase (38-126) U/L Troponin I <0.012 (0.000-0.034) ng/mL C-Reactive Protein <0.5 (<1.0) mg/dL Total Protein (6.3-8.2) g/dL Albumin (3.5-5.0) g/dL - EKG Data -: EKG Interpreted by Me (EKG is sinus bradycardia 55 IA 160 QRS 147 QTc 412) Disposition Clinical Impression: Dehydration, Intractable low back pain, Cellulitis, Ulcer of right lower leg Disposition: ADMITTED IP TO THIS HOSP Condition: Good Is patient prescribed a controlled substance at d/c from ED?: No Referrals: Anuel Peters MD [Primary Care Provider] - 1-2 days Time of Disposition: 20:10
[2023-05-13 19:21] LABS: Basophils # (A) 0.1 k/uL (0-0.2); Basophils % (A) 1 %; Eosinophils # (A) 0.3 k/uL (0-0.7); Eosinophils % (A) 3 %; HCT 48.7 % (39.0-53.0); HGB 16.4 gm/dL (13.0-17.5); Lymphocytes # (A) 1.5 k/uL (1.0-4.8); Lymphocytes % (A) 17 %; MCH 28.8 pg (25.0-35.0); MCHC 33.7 g/dL (31.0-37.0); MCV 85.6 fL (80.0-100.0); Mean Platelet Volume 8.3; Monocytes # (A) 0.5 k/uL (0-1.0); Monocytes % (A) 6 %; Neutrophils # (A) 6.4 k/uL (1.3-7.7); Neutrophils % (A) 72 %; Platelet Count 219 k/uL (150-450); RBC 5.69 m/uL (4.30-5.90); RDW 13.9 % (11.5-15.5); WBC 8.9 k/uL (3.8-10.6)
[2023-05-13 19:31] LABS: ALT 27 U/L (4-49); AST 29 U/L (17-59); African American GFR (CKD) >90 (>60 ml/min/1.73 sqM); Albumin 4.8 g/dL (3.5-5.0); Alkaline Phosphatase 89 U/L (38-126); Anion Gap 12 mmol/L; Blood Urea Nitrogen 18 mg/dL (9-20); Carbon Dioxide 28 mmol/L (22-30); Chloride 100 mmol/L (98-107); Glucose 188 mg/dL (74-99); Magnesium 1.7 mg/dL (1.6-2.3); Non-African American GFR(CKD) >90 (>60 ml/min/1.73 sqM); Sodium 140 mmol/L (137-145); Total Bilirubin 0.7 mg/dL (0.2-1.3); Total Protein 8.3 g/dL (6.3-8.2)
[2023-05-13] MEDS ORDERED: HYDROmorphone 1 MG/ML 1 ML SYRINGE IVP STA (20:11)
[2023-05-13] MEDS ORDERED: ONDANSETRON 4 MG/2 ML VIAL IVP PRN (20:11)
[2023-05-13] MEDS ORDERED: NALOXONE 0.4 MG/ML 1 ML VIAL IV PRN (20:11)
[2023-05-13] MEDS: SODIUM CHLORIDE 0.9% 1,000 ML IV SCH (21:17)
[2023-05-13] MEDS: MORPHINE SULFATE 4 MG/ML SYRINGE IV PRN (23:22)
[2023-05-14] MEDS: SODIUM CHLORIDE 0.9% 1,000 ML IV SCH ×4 (03:00→17:53)
[2023-05-14] MEDS: MORPHINE SULFATE 4 MG/ML SYRINGE IV PRN ×5 (03:35→21:31)
[2023-05-14 03:47] LABS: Partial Thromboplastin Time 22.1 sec (22.0-30.0); Prothrombin Time 10.3 sec (9.0-12.0)
[2023-05-14 07:50] LABS: Glucose,Whole Blood 192 mg/dL (70-110)
[2023-05-14] MEDS ORDERED: oxyCODONE-APAP 10-325MG 1 EACH TAB PO PRN (09:40)
[2023-05-14] MEDS ORDERED: NITROGLYCERIN SL TABS 0.4 MG TAB SUBLINGUAL PRN (09:40)
[2023-05-14] MEDS: ASPIRIN 81 MG PO SCH (10:14)
[2023-05-14] MEDS: DOXYCYCLINE 100 MG CAP PO SCH ×2 (10:14→20:09)
[2023-05-14 11:04] LABS: Basophils # (A) 0.11 X 10*3/uL (0.00-0.10); Basophils % (A) 1.4 %; Eosinophils # (A) 0.19 X 10*3/uL (0.04-0.35); Eosinophils % (A) 2.3 %; HCT 48.2 % (39.6-50.0); HGB 15.4 d/dL (13.0-17.0); Lymphocytes # (A) 1.53 X 10*3/uL (0.90-5.00); Lymphocytes % (A) 18.9 %; MCH 27.7 pg (27.0-32.0); MCV 86.7 FL (80.0-97.0); Mean Platelet Volume 11.2 FL (9.5-12.2); Monocytes # (A) 0.47 X 10*3/uL (0.20-1.00); Monocytes % (A) 5.8 %; NRBC Per 100 WBC 0 X 10*3/uL (0.00-0.01); Neutrophils # (A) 5.79 X 10*3/uL (1.80-7.70); Neutrophils % (A) 71.4 %; Platelet Count 222 X 10*3/uL (140-440); RBC 5.56 X 10*6/uL (4.40-5.60); WBC 8.11 X 10*3/uL (4.50-10.00)
[2023-05-14 12:18] LABS: ALT 21 U/L (10-49); AST 22 U/L (14-35); Albumin 4.5 d/dL (3.8-4.9); Albumin/Globulin Ratio 1.88 Ratio (1.60-3.17); Alkaline Phosphatase 84 U/L (41-126); Blood Urea Nitrogen 16.5 mg/dL (9.0-27.0); Calcium 9.7 mg/dL (8.7-10.3); Carbon Dioxide 24.4 mmol/L (21.6-31.8); Chloride 103 mmol/L (96-109); Globulin 2.4 d/dL (1.6-3.3); Glucose 178 mg/dL (70-110); Magnesium 1.7 mg/dL (1.5-2.4); Phosphorus 4.1 mg/dL (2.4-5.1); Potassium 4.1 mmol/L (3.5-5.5); Sodium 142 mmol/L (135-145); Total Bilirubin 0.4 mg/dL (0.3-1.2); Total Protein 6.9 d/dL (6.2-8.2)
[2023-05-14 12:40] LABS: Glucose,Whole Blood 300 mg/dL (70-110)
--- NOTE | 2023-05-14 13:18 | US ---
EXAMINATION TYPE: US venous doppler duplex LE DATE OF EXAM: 05/14/2023 1:09 PM COMPARISON: NONE CLINICAL INDICATION: Male, 52 years old with history of swelling, elevated d-dimer; elevated d dimer. SIDE PERFORMED: Bilateral TECHNIQUE: The lower extremity deep venous system is examined utilizing real time linear array sonog adonis with graded compression, doppler sonography and color-flow sonography. VESSELS IMAGED: Common Femoral Vein Deep Femoral Vein Greater Saphenous Vein * Femoral Vein Popliteal Vein Small Saphenous Vein * Proximal Calf Veins (* superficial vessels) Right Leg: Negative for DVT Left Leg: Negative for DVT IMPRESSION: Grayscale, color doppler, spectral doppler imaging performed of the deep veins of the lo wer extremities. There is normal flow, compressibility, vascular waveforms.
--- NOTE | 2023-05-14 15:56 | P.HPIM ---
History of Present Illness H&P Date: 05/14/23 History of present illness; patient is a 52-year-old gentleman with past medical history significant for hypertension, hyperlipidemia, diabetes mellitus who presented to the ER because of right leg pain and swelling. Patient has been on antibiotics for possible cellulitis of right lower extremity, stated that the right leg pain and swelling has been increasing. Complaining of lethargy and weakness. Patient was complaining of worsening redness of right lower extremity. Denies any cough or shortness of breath. Denies any chest pain. Denies any nausea, vomiting abdominal pain. Because of this worsening right lower extremity pain, patient came to the ER Initial lab work done in the ER showed WBC 8.9, hemoglobin 16.4, platelet count 219, sodium 140, potassium 4, BUN 18, creatinine 0.94, glucose 188 patient was admitted to hospitalist service REVIEW OF SYSTEMS: CONSTITUTIONAL: As mentioned above HEENT: No recent visual problems or hearing problems. Denied any sore throat. CARDIOVASCULAR: No chest pain, orthopnea, PND, no palpitations, no syncope. PULMONARY: No shortness of breath, no cough, no hemoptysis. GASTROINTESTINAL: No diarrhea, no nausea, no vomiting, no abdominal pain. NEUROLOGICAL: No headaches, no weakness, no numbness. HEMATOLOGICAL: Denies any bleeding or petechiae. GENITOURINARY: Denies any burning micturition, frequency, or urgency. MUSCULOSKELETAL/RHEUMATOLOGICAL: As mentioned above ENDOCRINE: Denies any polyuria or polydipsia. The rest of the 14-point review of systems is negative. PHYSICAL EXAMINATION: GENERAL: The patient is alert and oriented x3, not in any acute distress. Well developed, well nourished. HEENT: Pupils are round and equally reacting to light. EOMI. No scleral icterus. No conjunctival pallor. Normocephalic, atraumatic. No pharyngeal erythema. No thyromegaly. CARDIOVASCULAR: S1 and S2 present. No murmurs, rubs, or gallops. PULMONARY: Chest is clear to auscultation, no wheezing or crackles. ABDOMEN: Soft, nontender, nondistended, normoactive bowel sounds. No palpable organomegaly. MUSCULOSKELETAL: Right lower extremity erythema, wound seen EXTREMITIES: No cyanosis, clubbing, or pedal edema. NEUROLOGICAL: Gross neurological examination did not reveal any focal deficits. SKIN: No rashes. Assessment and plan Right lower extremity cellulitis Hypertension Hyperlipidemia Diabetes mellitus Monitor vital signs Monitor CBC Monitor CMP Continue telemetry monitoring Ordered ultrasound of right lower extremity. Continue IV Rocephin, added doxycycline Consult ID Labs and medication were reviewed.. Continue same treatment. Continue with symptomatic treatment. Resume home medication. Monitor labs and vitals. DVT and GI prophylaxis. Further recommendations as per clinical course of the patient Dictation was produced using [employer] dictation software. please excuse any grammatical, word or spelling errors. Past Medical History Past Medical History: Chest Pain / Angina, Diabetes Mellitus, GERD/Reflux, Hypertension, Myocardial Infarction ([place]), Syncope Additional Past Medical History / Comment(s): NIDDM type II, hiatal hernia, nephrolithiasis, chronic low back pain, bilateral leg numbness, R great toe diabetic foot ulcer, past left olecranon bursitis, osteomyelitis in L4-L5 w/abx treatment via PICC line (2018), managed by dr tran. History of Any Multi-Drug Resistant Organisms: MRSA Date of last positivie culture/infection: 12/21/16 MDRO Source:: Left axilla, BACK AND FACE Past Surgical History: Appendectomy, Cholecystectomy, Heart Catheterization, Heart Catheterization With Stent, Orthopedic Surgery Additional Past Surgical History / Comment(s): RENAL ANGIOGRAM 2005 for HTN, cardiac cath 2005, LT WRIST TENDON REPAIR 2013, RT ROTATOR CUFF REPAIR, bilateral knee arthroscopies, I&D L axillae, PICC LINES REMOVED. [address] Ha in December of 2018 Past Anesthesia/Blood Transfusion Reactions: No Reported Reaction Date of Last Stent Placement:: 12/2018 Past Psychological History: No Psychological Hx Reported Smoking Status: Current every day smoker Past Alcohol Use History: None Reported Past Drug Use History: None Reported - Past Family History Father Family Medical History: Coronary Artery Disease (CAD), Diabetes Mellitus, Hypertension Additional Family Medical History / Comment(s): pt. reports his father had a four vessel CABG Mother Family Medical History: Cancer, Hypertension Additional Family Medical History / Comment(s): LUNG CANCER(NON SMOKER) Medications and Allergies Home Medications Medication Instructions Recorded Confirmed Type Atorvastatin [Lipitor] 80 mg PO HS 11/11/18 05/13/23 History glipiZIDE [Glucotrol] 10 mg PO BID 01/05/19 05/13/23 History Triamterene-Hctz 37.5-25Mg 1 tab PO DAILY 01/23/19 05/13/23 History [Maxzide 37.5-25] carvediloL [Coreg] 25 mg PO BID 05/11/19 05/13/23 History amLODIPine [Norvasc] 5 mg PO HS 07/21/20 05/13/23 History hydrALAZINE HCL [Apresoline] 50 mg PO BID 07/21/20 05/13/23 History oxyCODONE-APAP 10-325MG [Percocet 1 tab PO TID PRN 07/21/20 05/13/23 History 10-325 mg] Insulin Aspart Prot/Insuln Asp 20 unit SQ BID-W/MEALS 04/09/22 05/13/23 History [Novolog MIX 70-30 Flexpen] metFORMIN HCL [Glucophage] 1,000 mg PO BID 04/09/22 05/13/23 History Aspirin 81 mg PO DAILY #90 tab 04/11/22 05/13/23 Rx Nitroglycerin Sl Tabs [Nitrostat] 0.4 mg SUBLINGUAL Q5M PRN tab 04/11/22 05/13/23 Rx Cephalexin [Keflex] 500 mg PO Q6H 05/13/23 05/13/23 History Clopidogrel [Plavix] 75 mg PO DIRECTED 05/13/23 05/13/23 History Losartan Potassium 100 mg PO DAILY 05/13/23 05/13/23 History Allergies Allergy/AdvReac Type Severity Reaction Status Date / Time vancomycin Allergy Rash/Hives Verified 05/13/23 20:27 Physical Exam Vitals: Vital Signs Temp Pulse Pulse Resp BP BP Pulse Ox 05/14/23 07:00 98.3 F 73 16 195/113 97 05/14/23 03:34 58 L 16 160/91 98 05/13/23 21:10 54 L 16 156/92 99 05/13/23 18:18 98.4 F 59 L 16 204/108 99 Intake and Output 05/13/23 05/14/23 05/14/23 22:59 06:59 14:59 Other: Weight 113.398 kg Results CBC & Chem 7: 05/14/23 07:14 05/14/23 07:14 Labs: Abnormal Lab Results - Last 24 Hours (Table) 05/13/23 05/13/23 05/14/23 Range/Units 18:24 19:11 07:48 Glucose 188 H (74-99) mg/dL POC Glucose (mg/dL) 192 H 192 H (70-110) mg/dL Total Protein 8.3 H (6.3-8.2) g/dL
[2023-05-14] MEDS: carvediloL 12.5 MG TAB PO SCH (17:10)
[2023-05-14 17:41] LABS: Glucose,Whole Blood 271 mg/dL (70-110)
[2023-05-14] MEDS: INSULN ASP PRT/INSULIN ASPART 100 UNIT/ML 10 ML VIAL SQ SCH (17:52)
[2023-05-14 19:35] LABS: Glucose,Whole Blood 319 mg/dL (70-110)
[2023-05-14] MEDS: glipiZIDE 10 MG TAB PO SCH (20:09)
[2023-05-14] MEDS: hydrALAZINE HCL 50 MG TAB PO SCH (20:09)
[2023-05-14] MEDS: metFORMIN 500 MG TAB PO SCH (20:09)
[2023-05-14] MEDS ORDERED: ATORVASTATIN 80 MG TAB PO SCH (21:00)
[2023-05-14] MEDS ORDERED: amLODIPine 5 MG TAB PO SCH (21:00)
--- NOTE | 2023-05-14 21:19 | P.CONS ---
History of Present Illness - Reason for Consult Consult date: 05/14/23 - History of Present Illness Patient is a 52-year-old male with a past medical history significant diabetes mellitus hypertension reflux angina did have a history of left olecranon bursitis osteomyelitis involving L4-L5 treated with IV antibiotic therapy 2018, patient is now presenting to the hospital for evaluation of wound to the right lateral leg with the patient has for couple of weeks patient is not very clear how it has started, patient has been complaining of nonhealing wound to the right lower leg has been complaining of mild head the leaking pain 2-3 out of 10 without any radiation and did have some clear drainage however has been evaluated and treated in the outpatient setting by the primary care physician with oral Keflex however the patient did not have complete healing of his wound patient wound to the right lateral leg currently covered with a dry scab with no surrounding swelling redness or any foul-smelling drainage patient complaining of mostly serous drainage especially by the end of the day and no foul-smelling and denies high-grade fever on presentation to the hospital the patient was afebrile and the fever has recorded subsequently patient did have a normal white count with no left shift creatinine was normal limits of the normal patient did have a lower extremity Doppler that was negative for DVT infectious he was consulted for further management of antibiotic therapy Past Medical History Past Medical History: Chest Pain / Angina, Diabetes Mellitus, GERD/Reflux, Hypertension, Myocardial Infarction ([place]), Syncope Additional Past Medical History / Comment(s): NIDDM type II, hiatal hernia, nephrolithiasis, chronic low back pain, bilateral leg numbness, R great toe diabetic foot ulcer, past left olecranon bursitis, osteomyelitis in L4-L5 w/abx treatment via PICC line (2017), managed by dr tran. Last Myocardial Infarction Date:: 2021 History of Any Multi-Drug Resistant Organisms: MRSA Year Discovered:: 12/21/16 MDRO Source:: Left axilla, BACK AND FACE Past Surgical History: Appendectomy, Cholecystectomy, Heart Catheterization, Heart Catheterization With Stent, Orthopedic Surgery Additional Past Surgical History / Comment(s): RENAL ANGIOGRAM 2005 for HTN, cardiac cath 2005, LT WRIST TENDON REPAIR 2013, RT ROTATOR CUFF REPAIR, bilateral knee arthroscopies, I&D L axillae, PICC LINES REMOVED. [address] Ha in December of 2018 Past Anesthesia/Blood Transfusion Reactions: No Reported Reaction Date of Last Stent Placement:: 12/2018 Past Psychological History: No Psychological Hx Reported Smoking Status: Current every day smoker Past Alcohol Use History: None Reported Past Drug Use History: None Reported - Past Family History Father Family Medical History: Coronary Artery Disease (CAD), Diabetes Mellitus, Hypertension Additional Family Medical History / Comment(s): pt. reports his father had a four vessel CABG Mother Family Medical History: Cancer, Hypertension Additional Family Medical History / Comment(s): LUNG CANCER(NON SMOKER) Medications and Allergies Home Medications Medication Instructions Recorded Confirmed Type Atorvastatin [Lipitor] 80 mg PO HS 11/11/18 05/13/23 History glipiZIDE [Glucotrol] 10 mg PO BID 01/05/19 05/13/23 History Triamterene-Hctz 37.5-25Mg 1 tab PO DAILY 01/23/19 05/13/23 History [Maxzide 37.5-25] carvediloL [Coreg] 25 mg PO BID 05/11/19 05/13/23 History amLODIPine [Norvasc] 5 mg PO HS 07/21/20 05/13/23 History hydrALAZINE HCL [Apresoline] 50 mg PO BID 07/21/20 05/13/23 History oxyCODONE-APAP 10-325MG [Percocet 1 tab PO TID PRN 07/21/20 05/13/23 History 10-325 mg] Insulin Aspart Prot/Insuln Asp 20 unit SQ BID-W/MEALS 04/09/22 05/13/23 History [Novolog MIX 70-30 Flexpen] metFORMIN HCL [Glucophage] 1,000 mg PO BID 04/09/22 05/13/23 History Aspirin 81 mg PO DAILY #90 tab 04/11/22 05/13/23 Rx Nitroglycerin Sl Tabs [Nitrostat] 0.4 mg SUBLINGUAL Q5M PRN tab 04/11/22 05/13/23 Rx Cephalexin [Keflex] 500 mg PO Q6H 05/13/23 05/13/23 History Clopidogrel [Plavix] 75 mg PO DIRECTED 05/13/23 05/13/23 History Losartan Potassium 100 mg PO DAILY 05/13/23 05/13/23 History Allergies Allergy/AdvReac Type Severity Reaction Status Date / Time vancomycin Allergy Rash/Hives Verified 05/13/23 20:27 Physical Exam Vitals: Vital Signs Temp Pulse Pulse Resp BP BP Pulse Ox 05/14/23 07:00 98.3 F 73 16 195/113 97 05/14/23 03:34 58 L 16 160/91 98 05/13/23 21:10 54 L 16 156/92 99 05/13/23 18:18 98.4 F 59 L 16 204/108 99 Intake and Output 05/13/23 05/14/23 05/14/23 22:59 06:59 14:59 Other: Weight 113.398 kg 113.398 kg Results CBC & Chem 7: 05/14/23 07:14 05/14/23 07:14 Labs: Abnormal Lab Results - Last 24 Hours (Table) 05/13/23 05/13/23 05/14/23 Range/Units 18:24 19:11 07:14 Basophils # 0.11 H (0.00-0.10) X 10*3/uL Glucose 188 H (74-99) mg/dL POC Glucose (mg/dL) 192 H (70-110) mg/dL Total Protein 8.3 H (6.3-8.2) g/dL 05/14/23 Range/Units 07:48 Basophils # (0.00-0.10) X 10*3/uL Glucose (74-99) mg/dL POC Glucose (mg/dL) 192 H (70-110) mg/dL Total Protein (6.3-8.2) g/dL Assessment and Plan Plan: 1patient with right lower extremity lateral leg small wound which is currently covered mostly with a scab with a question of possible traumatic versus ruptured blister with no significant surrounding inflammatory changes and no foul- smelling drainage patient not running any fever vitals normal clinically doubt infection/cellulitis, the patient clinical condition has been discussed in detail with the patient recurrently advising no local or systemic antibiotic therapy patient has been advised compression stocking to keep the swelling down if the area scab of and heal within the next 2 weeks well but if not patient benefit from surgical debridement biopsy and deep culture and antibiotic on the basis of those culture Thank you for this consultation Time with Patient: Greater than 30
[2023-05-15] MEDS: MORPHINE SULFATE 4 MG/ML SYRINGE IV PRN ×3 (01:14→09:45)
[2023-05-15 02:58] VITALS: RESP 16
[2023-05-15] MEDS: SODIUM CHLORIDE 0.9% 1,000 ML IV SCH ×2 (03:07→11:17)
[2023-05-15 05:22] LABS: Glucose,Whole Blood 137 mg/dL (70-110)
[2023-05-15] MEDS: carvediloL 12.5 MG TAB PO SCH (05:27)
[2023-05-15 08:33] VITALS: BP 164/91; PULSE 52; TEMP 98.2
[2023-05-15] MEDS: INSULN ASP PRT/INSULIN ASPART 100 UNIT/ML 10 ML VIAL SQ SCH (08:49)
[2023-05-15] MEDS: metFORMIN 500 MG TAB PO SCH (08:50)
[2023-05-15] MEDS: hydrALAZINE HCL 50 MG TAB PO SCH (08:50)
[2023-05-15] MEDS: DOXYCYCLINE 100 MG CAP PO SCH (08:50)
[2023-05-15] MEDS: glipiZIDE 10 MG TAB PO SCH (08:50)
[2023-05-15] MEDS: ASPIRIN 81 MG PO SCH (08:50)
[2023-05-15] MEDS ORDERED: CLOPIDOGREL 75 MG TAB PO SCH (09:00)
[2023-05-15] MEDS ORDERED: TRIAMTERENE-HCTZ 37.5-25MG 1 EACH TAB PO SCH (09:00)
[2023-05-15 11:04] LABS: Basophils # (A) 0.11 X 10*3/uL (0.00-0.10); Basophils % (A) 1.7 %; Eosinophils # (A) 0.23 X 10*3/uL (0.04-0.35); Eosinophils % (A) 3.5 %; HGB 14.3 d/dL (13.0-17.0); Lymphocytes # (A) 1.13 X 10*3/uL (0.90-5.00); Lymphocytes % (A) 17.2 %; MCH 27.7 pg (27.0-32.0); MCHC 31.8 d/dL (32.0-37.0); Mean Platelet Volume 11.5 FL (9.5-12.2); Monocytes # (A) 0.47 X 10*3/uL (0.20-1.00); Monocytes % (A) 7.1 %; NRBC Per 100 WBC 0 X 10*3/uL (0.00-0.01); Neutrophils # (A) 4.62 X 10*3/uL (1.80-7.70); Neutrophils % (A) 70.2 %; Platelet Count 202 X 10*3/uL (140-440); RBC 5.17 X 10*6/uL (4.40-5.60); RDW 13.9 % (11.5-14.5); WBC 6.58 X 10*3/uL (4.50-10.00)
[2023-05-15 12:15] LABS: ALT 19 U/L (10-49); AST 24 U/L (14-35); Albumin 4.1 d/dL (3.8-4.9); Albumin/Globulin Ratio 1.71 Ratio (1.60-3.17); Alkaline Phosphatase 74 U/L (41-126); BUN/Creat Ratio 17.89 Ratio (12.00-20.00); Blood Urea Nitrogen 16.1 mg/dL (9.0-27.0); Calcium 8.9 mg/dL (8.7-10.3); Carbon Dioxide 22.7 mmol/L (21.6-31.8); Chloride 106 mmol/L (96-109); Globulin 2.4 d/dL (1.6-3.3); Glucose 137 mg/dL (70-110); Sodium 142 mmol/L (135-145); Total Bilirubin 0.4 mg/dL (0.3-1.2); Total Protein 6.5 d/dL (6.2-8.2)
--- NOTE | 2023-05-15 13:09 | P.DS ---
Providers Date of admission: 05/13/23 20:12 Expected date of discharge: 05/15/23 Attending physician: Harris Coyne Consults: 05/13/23 20:11 Consult Physician Routine Consulting Provider: Ta Chappell Consult Reason/Comments: known Do you want consulting provider notified?: Yes Primary care physician: Fran Agee Hospital Course: Discharge diagnoses; Right lower extremity wound Hypertension Hyperlipidemia Diabetes mellitus Hospital course; patient is a 52-year-old gentleman with past medical history significant for hypertension, hyperlipidemia, diabetes mellitus who presented to the ER because of right leg pain and swelling. Patient has been on antibiotics for possible cellulitis of right lower extremity, stated that the right leg pain and swelling has been increasing. Complaining of lethargy and weakness. Patient was complaining of worsening redness of right lower extremity. Denies any cough or shortness of breath. Denies any chest pain. Denies any nausea, vomiting abdominal pain. Because of this worsening right lower extremity pain, patient came to the ER Initial lab work done in the ER showed WBC 8.9, hemoglobin 16.4, platelet count 219, sodium 140, potassium 4, BUN 18, creatinine 0.94, glucose 188 patient was admitted to hospitalist service Patient was seen by ID, erythema had resolved, there was evidence of a wound on right calf healing well with scab formation, infectious disease did not recommend any antibiotics at this time. Recommend outpatient follow-up PHYSICAL EXAMINATION: GENERAL: The patient is alert and oriented x3, not in any acute distress. Well developed, well nourished. HEENT: Pupils are round and equally reacting to light. EOMI. No scleral icterus. No conjunctival pallor. Normocephalic, atraumatic. No pharyngeal erythema. No thyromegaly. CARDIOVASCULAR: S1 and S2 present. No murmurs, rubs, or gallops. PULMONARY: Chest is clear to auscultation, no wheezing or crackles. ABDOMEN: Soft, nontender, nondistended, normoactive bowel sounds. No palpable organomegaly. MUSCULOSKELETAL: No joint swelling or deformity. Right lower extremity later leg wound seen, healing well, scab formation EXTREMITIES: No cyanosis, clubbing, or pedal edema. NEUROLOGICAL: Gross neurological examination did not reveal any focal deficits. SKIN: No rashes. Dictation was produced using [employer] software. please excuse any grammatical, word or spelling errors. Patient Condition at Discharge: Good Plan - Discharge Summary Discharge Rx Participant: No New Discharge Prescriptions: Continue Atorvastatin [Lipitor] 80 mg PO HS glipiZIDE [Glucotrol] 10 mg PO BID Triamterene-Hctz 37.5-25Mg [Maxzide 37.5-25] 1 tab PO DAILY carvediloL [Coreg] 25 mg PO BID amLODIPine [Norvasc] 5 mg PO HS hydrALAZINE HCL [Apresoline] 50 mg PO BID oxyCODONE-APAP 10-325MG [Percocet 10-325 mg] 1 tab PO TID PRN PRN Reason: Pain Insulin Aspart Prot/Insuln Asp [Novolog MIX 70-30 Flexpen] 20 unit SQ BID- W/MEALS Clopidogrel [Plavix] 75 mg PO DIRECTED metFORMIN HCL [Glucophage] 1,000 mg PO BID Aspirin 81 mg PO DAILY #90 tab Nitroglycerin Sl Tabs [Nitrostat] 0.4 mg SUBLINGUAL Q5M PRN tab PRN Reason: Chest Pain Cephalexin [Keflex] 500 mg PO Q6H Losartan Potassium 100 mg PO DAILY Discharge Medication List Atorvastatin [Lipitor] 80 mg PO HS 11/11/18 [History] glipiZIDE [Glucotrol] 10 mg PO BID 01/05/19 [History] Triamterene-Hctz 37.5-25Mg [Maxzide 37.5-25] 1 tab PO DAILY 01/23/19 [History] carvediloL [Coreg] 25 mg PO BID 05/11/19 [History] amLODIPine [Norvasc] 5 mg PO HS 07/21/20 [History] hydrALAZINE HCL [Apresoline] 50 mg PO BID 07/21/20 [History] oxyCODONE-APAP 10-325MG [Percocet 10-325 mg] 1 tab PO TID PRN 07/21/20 [History] Insulin Aspart Prot/Insuln Asp [Novolog MIX 70-30 Flexpen] 20 unit SQ BID- W/MEALS 04/09/22 [History] metFORMIN HCL [Glucophage] 1,000 mg PO BID 04/09/22 [History] Aspirin 81 mg PO DAILY #90 tab 04/11/22 [Rx] Nitroglycerin Sl Tabs [Nitrostat] 0.4 mg SUBLINGUAL Q5M PRN tab 04/11/22 [Rx] Cephalexin [Keflex] 500 mg PO Q6H 05/13/23 [History] Clopidogrel [Plavix] 75 mg PO DIRECTED 05/13/23 [History] Losartan Potassium 100 mg PO DAILY 05/13/23 [History] Follow up Appointment(s)/Referral(s): Anuel Peters MD [Primary Care Provider] - 1-2 days Ta Chappell MD [STAFF PHYSICIAN] - 1 Week Discharge Disposition: HOME SELF-CARE
== END 2023-05-15 12:14 | disposition home or self-care (01) ==
LOC: EC 18:17 → 6NMEDSUR 20:12
PROVIDERS: ADMIT Hospitalist; ATTEND Hospitalist
DX: S81.802A Unspecified open wound, left lower leg, initial encounter (principal); X58.XXXA Exposure to other specified factors, initial encounter; I10 Essential (primary) hypertension; I25.2 Old myocardial infarction; K21.9 Gastro-esophageal reflux disease without esophagitis; G89.29 Other chronic pain; M54.50 Low back pain, unspecified; E86.0 Dehydration; E78.5 Hyperlipidemia, unspecified; E11.9 Type 2 diabetes mellitus without complications; F17.200 Nicotine dependence, unspecified, uncomplicated; Z95.5 Presence of coronary angioplasty implant and graft; Z79.899 Other long term (current) drug therapy; Z79.84 Long term (current) use of oral hypoglycemic drugs; Z79.4 Long term (current) use of insulin; Z79.82 Long term (current) use of aspirin; Z79.02 Long term (current) use of antithrombotics/antiplatelets; Z88.1 Allergy status to other antibiotic agents
CPT/HCPCS: 96361 ×4; 96366 ×2; 96372 ×2; 96376 ×3; 96365; 96375; 99285; 36415; 94760; 93005; 80053 ×3; 83605; 83735 ×2; 84100 ×2; 84484; 85025 ×3; 85610; 85730; 86140; 87040; 93970; G0378 ×3; J2270 ×3; J2405; J0696 ×3; J1170

== ENCOUNTER 2023-05-25 10:22 | Emergency (ER) | payer OTHER, BC ==
[2023-05-25] MEDS ORDERED: ONDANSETRON 4 MG/2 ML VIAL IVP STA (11:55)
[2023-05-25] MEDS ORDERED: HYDROmorphone 0.5 MG/0.5 ML SYRINGE IVP STA ×2 (11:55→13:17)
[2023-05-25] MEDS ORDERED: SODIUM CHLORIDE 0.9% 1,000 ML IV STA (11:55)
[2023-05-25 12:15] LABS: Basophils % (A) 1 %; Eosinophils # (A) 0.3 k/uL (0-0.7); Eosinophils % (A) 4 %; HCT 46.1 % (39.0-53.0); HGB 15.4 gm/dL (13.0-17.5); Lymphocytes # (A) 1.5 k/uL (1.0-4.8); Lymphocytes % (A) 17 %; MCH 28.5 pg (25.0-35.0); MCHC 33.3 g/dL (31.0-37.0); MCV 85.5 fL (80.0-100.0); Mean Platelet Volume 8.3; Monocytes # (A) 0.4 k/uL (0-1.0); Monocytes % (A) 5 %; Neutrophils # (A) 6.8 k/uL (1.3-7.7); Neutrophils % (A) 74 %; Platelet Count 194 k/uL (150-450); WBC 9.1 k/uL (3.8-10.6)
[2023-05-25 12:32] LABS: ALT 25 U/L (4-49); AST 36 U/L (17-59); African American GFR (CKD) >90 (>60 ml/min/1.73 sqM); Albumin 4.3 g/dL (3.5-5.0); Alkaline Phosphatase 65 U/L (38-126); Anion Gap 10 mmol/L; Blood Urea Nitrogen 22 mg/dL (9-20); Calcium 9.4 mg/dL (8.4-10.2); Carbon Dioxide 27 mmol/L (22-30); Chloride 102 mmol/L (98-107); Glucose 174 mg/dL (74-99); Non-African American GFR(CKD) >90 (>60 ml/min/1.73 sqM); Sodium 139 mmol/L (137-145); Total Protein 7.4 g/dL (6.3-8.2)
[2023-05-25 12:37] LABS: Potassium 4.6 mmol/L (3.5-5.1)
[2023-05-25] MEDS ORDERED: SULFAMETHOX-TMP 800-160MG 1 EACH TAB PO STA (13:03)
--- NOTE | 2023-05-25 14:15 | XR ---
EXAMINATION TYPE: XR tibia fibula RT DATE OF EXAM: 05/25/2023 COMPARISON: NONE HISTORY: Nonhealing wound TECHNIQUE: Two views are submitted. FINDINGS: The osseous structures are intact. Hypertrophic spurring of the patella. Vascular calcifications note d. There is a soft tissue ulceration along the lateral margin of the distal lower extremity. No osseo us destruction. IMPRESSION: 1. No acute osseous abnormality. No diagnostic evidence of osteomyelitis. 2. Soft tissue swelling with suspected ulceration along the lateral margin of the distal lower extrem ity.
--- NOTE | 2023-05-25 14:24 | ED ---
General Adult HPI - General Chief complaint: Skin/Abscess/Foreign Body Stated complaint: R Leg Wound Time Seen by Provider: 05/25/23 11:28 Source: patient Mode of arrival: ambulatory Limitations: no limitations - History of Present Illness Initial comments: Patient is a 52-year-old male who presents to the emergency department for right leg wound. Patient reports wound in the side of his right lower leg for the past month. States he was recently admitted for the wound. He follows with Dr. Tran. He just finished doxycycline a couple days ago. Patient followed up with Dr. Tran in the office on Sunday. The wound was cultured he was told it was MRSA. Patient is concerned that the wound is getting bigger. He feels nauseous no vomiting. No fever or chills. - Related Data Home Medications Medication Instructions Recorded Confirmed Atorvastatin [Lipitor] 80 mg PO HS 11/11/18 05/13/23 glipiZIDE [Glucotrol] 10 mg PO BID 01/05/19 05/13/23 Triamterene-Hctz 37.5-25Mg 1 tab PO DAILY 01/23/19 05/13/23 [Maxzide 37.5-25] carvediloL [Coreg] 25 mg PO BID 05/11/19 05/13/23 amLODIPine [Norvasc] 5 mg PO HS 07/21/20 05/13/23 hydrALAZINE HCL [Apresoline] 50 mg PO BID 07/21/20 05/13/23 oxyCODONE-APAP 10-325MG [Percocet 1 tab PO TID PRN 07/21/20 05/13/23 10-325 mg] Insulin Aspart Prot/Insuln Asp 20 unit SQ BID-W/MEALS 04/09/22 05/13/23 [Novolog MIX 70-30 Flexpen] metFORMIN HCL [Glucophage] 1,000 mg PO BID 04/09/22 05/13/23 Cephalexin [Keflex] 500 mg PO Q6H 05/13/23 05/13/23 Clopidogrel [Plavix] 75 mg PO DIRECTED 05/13/23 05/13/23 Losartan Potassium 100 mg PO DAILY 05/13/23 05/13/23 Previous Rx's Medication Instructions Recorded Aspirin 81 mg PO DAILY #90 tab 04/11/22 Nitroglycerin Sl Tabs [Nitrostat] 0.4 mg SUBLINGUAL Q5M PRN tab 04/11/22 Doxycycline [Vibramycin] 100 mg PO BID 10 Days #20 capsule 05/16/23 Ibuprofen [Motrin] 800 mg PO Q8HR PRN #30 tab 05/25/23 Ondansetron Odt [Zofran Odt] 4 mg PO Q8HR PRN #10 tab 05/25/23 Sulfamethox-Tmp 800-160Mg [Bactrim 1 each PO Q12HR #20 tab 05/25/23 Ds] Allergies Allergy/AdvReac Type Severity Reaction Status Date / Time vancomycin Allergy Rash/Hives Verified 05/25/23 10:32 Review of Systems ROS Statement: Those systems with pertinent positive or pertinent negative responses have been documented in the HPI. ROS Other: All systems not noted in ROS Statement are negative. Past Medical History Past Medical History: Chest Pain / Angina, Diabetes Mellitus, GERD/Reflux, Hypertension, Myocardial Infarction ([place]), Syncope Additional Past Medical History / Comment(s): NIDDM type II, hiatal hernia, nep hrolithiasis, chronic low back pain, bilateral leg numbness, R great toe diabetic foot ulcer, past left olecranon bursitis, osteomyelitis in L4-L5 w/abx treatment via PICC line (2017), managed by dr tran. Last Myocardial Infarction Date:: 2021 History of Any Multi-Drug Resistant Organisms: MRSA Date of last positivie culture/infection: 05/16/23 MDRO Source:: Left Lower Leg Past Surgical History: Appendectomy, Cholecystectomy, Heart Catheterization, Heart Catheterization With Stent, Orthopedic Surgery Additional Past Surgical History / Comment(s): RENAL ANGIOGRAM 2005 for HTN, cardiac cath 2005, LT WRIST TENDON REPAIR 2013, RT ROTATOR CUFF REPAIR, bilateral knee arthroscopies, I&D L axillae, PICC LINES REMOVED. [address] Ha in December of 2018 Past Anesthesia/Blood Transfusion Reactions: No Reported Reaction Date of Last Stent Placement:: 12/2018 Past Psychological History: No Psychological Hx Reported Smoking Status: Current every day smoker Past Alcohol Use History: None Reported Past Drug Use History: None Reported - Past Family History Father Family Medical History: Coronary Artery Disease (CAD), Diabetes Mellitus, Hypertension Additional Family Medical History / Comment(s): pt. reports his father had a four vessel CABG Mother Family Medical History: Cancer, Hypertension Additional Family Medical History / Comment(s): LUNG CANCER(NON SMOKER) General Exam Limitations: no limitations General appearance: alert Head exam: Present: atraumatic, normocephalic, normal inspection Eye exam: Present: normal appearance, PERRL, EOMI. Absent: scleral icterus, conjunctival injection, periorbital swelling Respiratory exam: Present: normal lung sounds bilaterally. Absent: respiratory distress, wheezes, rales, rhonchi, stridor Cardiovascular Exam: Present: regular rate, normal rhythm, normal heart sounds. Absent: systolic murmur, diastolic murmur, rubs, gallop, clicks Extremities exam: Present: other (2 1 cm connecting circular ulcers right lateral lower leg. Minimal purulent drainage. No surrounding erythema. No fluctuance or drainable abscess. Neurovascularly intact. Full range of motion) Neurological exam: Present: alert Psychiatric exam: Present: normal affect, normal mood Skin exam: Present: warm, dry, intact, normal color. Absent: rash Course Vital Signs 05/25/23 05/25/23 05/25/23 10:39 12:47 14:44 Temperature 98.7 F 98.2 F Pulse Rate 78 57 L 62 Respiratory 18 18 16 Rate Blood Pressure 192/110 128/79 138/79 O2 Sat by Pulse 98 97 97 Oximetry Medical Decision Making - Medical Decision Making Was pt. sent in by a medical professional or institution (BRODY Bowman, MOTORBOAT MECHANIC INBOARD, urgent care, hospital, or detention...) When possible be specific @ -No Did you speak to anyone other than the patient for history (EMS, parent, family, police, friend...)? What history was obtained from this source @ -No Did you review nursing and triage notes (agree or disagree)? Why? @ -I reviewed and agree with nursing and triage notes Were old charts reviewed (outside hosp., previous admission, EMS record, old EKG, old radiological studies, urgent care reports/EKG's, detention records)? Report findings @ -No old charts were reviewed Differential Diagnosis (chest pain, altered mental status, abdominal pain women, abdominal pain men, vaginal bleeding, weakness, fever, dyspnea, syncope, headache, dizziness, GI bleed, back pain, seizure, CVA, palpatations, mental health)? @ -Cellulitis, infected wound, sepsis, abscess this list is not meant to be al l-inclusive. EKG interpreted by me (3pts min.). @ -As above X-rays interpreted by me (1pt min.). @ -[No osseous involvement CT interpreted by me (1pt min.). @ -None done U/S interpreted by me (1pt. min.). @ -None done What testing was considered but not performed or refused? (CT, X-rays, U/S, labs)? Why? @ -None What meds were considered but not given or refused? Why? @ -None Did you discuss the management of the patient with other professionals (pr ofessionals i.e. , PA, MOTORBOAT MECHANIC INBOARD, lab, RT, psych nurse, social research assistant, forming mill operator, teacher, security flex utility officer, case management manager)? Give summary @ -No Was smoking cessation discussed for >3mins.? @ -No Was critical care preformed (if so, how long)? @ -No Were there social determinants of health that impacted care today? How? (Homelessness, low income, unemployed, alcoholism, drug addiction, transport ation, low edu. Level, literacy, decrease access to med. care, long-term, rehab)? @ -No Was there de-escalation of care discussed even if they declined (Discuss DNR or withdrawal of care, Hospice)? DNR status @ -No What co-morbidities impacted this encounter? (DM, HTN, Smoking, COPD, CAD, Cancer, CVA, ARF, Chemo, Hep., AIDS, mental health diagnosis, sleep apnea, morbid obesity)? @ -None Was patient admitted / discharged? Hospital course, mention meds given and route, prescriptions, significant lab abnormalities, going to OR and other pertinent info. @ -This is a 52 -year-old male presenting with infected ulcer. Patient is nontoxic appearing. Afebrile. No leukocytosis. Patient is very anxious he is requesting x-ray as he is concerned for bone involvement. This was obtained interpreted by myself showing no osseous involvement. Patient will be discharged with reviewed culture patient will be discharged with Bactrim. He will follow-up with infectious disease. We discussed return parameters Undiagnosed new problem with uncertain prognosis? @ -No Drug Therapy requiring intensive monitoring for toxicity (Heparin, Nitro, Insulin, Cardizem)? @ -No Were any procedures done? @ -No Diagnosis/symptom? @ Ulcer right lower leg Acute, or Chronic, or Acute on Chronic? @ -Acute Uncomplicated (without systemic symptoms) or Complicated (systemic symptoms)? @ Uncomplicated Side effects of treatment? @ -No Exacerbation, Progression, or Severe Exacerbation? @ -[No] Poses a threat to life or bodily function? How? (Chest pain, [place], [place], pneumonia, PE, COPD, DKA, ARF, appy, cholecystitis, CVA, Diverticulitis, Homicidal, Suicidal, threat to staff... and all critical care pts) @ -[No] Dr. Fletcher is my attending - Lab Data Result diagrams: 05/25/23 11:56 05/25/23 11:56 Lab Results 05/25/23 05/25/23 05/25/23 Range/Units 11:56 11:56 11:56 WBC 9.1 (3.8-10.6) k/uL RBC 5.40 (4.30-5.90) m/uL Hgb 15.4 (13.0-17.5) gm/dL Hct 46.1 (39.0-53.0) % MCV 85.5 (80.0-100.0) fL MCH 28.5 (25.0-35.0) pg MCHC 33.3 (31.0-37.0) g/dL RDW 14.0 (11.5-15.5) % Plt Count 194 (150-450) k/uL MPV 8.3 Neutrophils % 74 % Lymphocytes % 17 % Monocytes % 5 % Eosinophils % 4 % Basophils % 1 % Neutrophils # 6.8 (1.3-7.7) k/uL Lymphocytes # 1.5 (1.0-4.8) k/uL Monocytes # 0.4 (0-1.0) k/uL Eosinophils # 0.3 (0-0.7) k/uL Basophils # 0.0 (0-0.2) k/uL Sodium 139 (137-145) mmol/L Potassium 4.6 (3.5-5.1) mmol/L Chloride 102 (98-107) mmol/L Carbon Dioxide 27 (22-30) mmol/L Anion Gap 10 mmol/L BUN 22 H (9-20) mg/dL Creatinine 0.77 (0.66-1.25) mg/dL Est GFR (CKD-EPI)AfAm >90 (>60 ml/min/1.73 sqM) Est GFR (CKD-EPI)NonAf >90 (>60 ml/min/1.73 sqM) Glucose 174 H (74-99) mg/dL Plasma Lactic Acid Cb 1.7 (0.7-2.0) mmol/L Calcium 9.4 (8.4-10.2) mg/dL Total Bilirubin 1.0 (0.2-1.3) mg/dL AST 36 (17-59) U/L ALT 25 (4-49) U/L Alkaline Phosphatase 65 (38-126) U/L Total Protein 7.4 (6.3-8.2) g/dL Albumin 4.3 (3.5-5.0) g/dL Disposition Clinical Impression: Ulcer of right lower leg Disposition: HOME SELF-CARE Condition: Good Instructions (If sedation given, give patient instructions): Acute Wound Care (ED) Additional Instructions: Take medication as directed. Please follow-up with Dr. Tran in 1-2 days. Return to the emergency department if you experience new, concerning, or worsening symptoms. Prescriptions: Sulfamethox-Tmp 800-160Mg [Bactrim Ds] 1 each PO Q12HR #20 tab Ibuprofen [Motrin] 800 mg PO Q8HR PRN #30 tab PRN Reason: Pain Ondansetron Odt [Zofran Odt] 4 mg PO Q8HR PRN #10 tab PRN Reason: Nausea Is patient prescribed a controlled substance at d/c from ED?: No Referrals: Anuel Peters MD [Primary Care Provider] - 1-2 days
[2023-05-25 14:46] VITALS: BP 138/79; PULSE 62; RESP 16; TEMP 98.2
== END 2023-05-25 14:46 | disposition home or self-care (01) ==
LOC: EC 10:22
DX: L97.919 Non-pressure chronic ulcer of unspecified part of right lower leg with unspecified severity (principal); E11.9 Type 2 diabetes mellitus without complications; I10 Essential (primary) hypertension; I25.2 Old myocardial infarction; F17.200 Nicotine dependence, unspecified, uncomplicated; Z79.4 Long term (current) use of insulin; Z79.84 Long term (current) use of oral hypoglycemic drugs; Z79.899 Other long term (current) drug therapy; Z79.02 Long term (current) use of antithrombotics/antiplatelets; Z88.1 Allergy status to other antibiotic agents
CPT/HCPCS: 36415; 80053; 83605; 85025; 73590; 99284; 96374; 96375; 96376; 96361; J2405; J1170

== ENCOUNTER 2023-06-12 19:43 | Inpatient (IN) | payer OTHER, BC ==
[2023-06-12] MEDS ORDERED: HYDROmorphone 1 MG/ML 1 ML SYRINGE IVP STA (20:36)
[2023-06-12] MEDS ORDERED: hydrALAZINE HCL 50 MG TAB PO STA (20:49)
[2023-06-12] MEDS ORDERED: carvediloL 12.5 MG TAB PO STA (20:49)
[2023-06-12] MEDS ORDERED: amLODIPine 5 MG TAB PO STA (20:49)
[2023-06-12 21:08] LABS: Basophils # (A) 0.1 k/uL (0-0.2); Basophils % (A) 1 %; Eosinophils # (A) 0.2 k/uL (0-0.7); Eosinophils % (A) 2 %; HCT 42.8 % (39.0-53.0); HGB 14.4 gm/dL (13.0-17.5); Lymphocytes # (A) 1.3 k/uL (1.0-4.8); Lymphocytes % (A) 15 %; MCH 28.5 pg (25.0-35.0); MCHC 33.6 g/dL (31.0-37.0); MCV 84.8 fL (80.0-100.0); Mean Platelet Volume 8.4; Monocytes # (A) 0.5 k/uL (0-1.0); Monocytes % (A) 6 %; Neutrophils # (A) 6.6 k/uL (1.3-7.7); Neutrophils % (A) 75 %; Platelet Count 228 k/uL (150-450); RBC 5.05 m/uL (4.30-5.90); WBC 8.8 k/uL (3.8-10.6)
--- NOTE | 2023-06-12 21:10 | XR ---
EXAMINATION TYPE: XR tibia fibula RT DATE OF EXAM: 06/12/2023 COMPARISON: NONE HISTORY: 52-year-old male with wound and pain, rule out osteomyelitis TECHNIQUE: 2 views FINDINGS: Mild generalized soft tissue swelling. Possible wounds both medially and laterally at the d istal leg and ankle. No underlying periostitis or osteolysis. No acute fracture. Knee and ankle artic ulations appear grossly intact. IMPRESSION: Mild generalized soft tissue swelling. Shallow wounds along both the medial and lateral aspect of the distal leg and ankle. No radiographic evidence for underlying osteomyelitis at this time.
[2023-06-12 21:21] LABS: ALT 25 U/L (4-49); African American GFR (CKD) 61 (>60 ml/min/1.73 sqM); Albumin 4.3 g/dL (3.5-5.0); Anion Gap 10 mmol/L; Blood Urea Nitrogen 33 mg/dL (9-20); Calcium 9.6 mg/dL (8.4-10.2); Carbon Dioxide 25 mmol/L (22-30); Chloride 102 mmol/L (98-107); Glucose 260 mg/dL (74-99); Non-African American GFR(CKD) 53 (>60 ml/min/1.73 sqM); Sodium 137 mmol/L (137-145); Total Bilirubin 0.7 mg/dL (0.2-1.3); Total Protein 7.1 g/dL (6.3-8.2)
[2023-06-12 21:25] LABS: AST 31 U/L (17-59); Alkaline Phosphatase 68 U/L (38-126)
[2023-06-12] MEDS ORDERED: diphenhydrAMINE 50 MG/ML 1 ML VIAL IVP STA (21:34)
[2023-06-12] MEDS ORDERED: methylPREDNISolone SOD SUCCI 125 MG/2 ML VIAL IV STA (21:34)
[2023-06-12] MEDS ORDERED: FAMOTIDINE 20 MG/2 ML VIAL IV STA (21:34)
[2023-06-12] MEDS ORDERED: CLINDAMYCIN 600 MG in DEXTROSE 5% IN WATER 50 ML IVPB STA ×2 (21:41)
--- NOTE | 2023-06-12 21:57 | ED ---
Skin/Abscess/FB HPI - General Chief complaint: Skin/Abscess/Foreign Body Stated complaint: Right leg Pain Time Seen by Provider: 06/12/23 20:25 Source: patient Mode of arrival: ambulatory Limitations: no limitations - History of Present Illness Initial comments: 52-year-old male presenting with chief complaint of right leg wound. Past medical history includes diabetes, hypertension. Patient reports that he was admitted on this wound. States that he was discharged after [address] Tran's care. Patient states that he has been on a round of Bactrim and doxycycline, but has continued to have worsening redness and tenderness surrounding the wound. States that he has history of osteomyelitis is worried about developing this again. He was seen by Dr. Ambrose recently and was told that he may require a PICC line placement and IV antibiotic if symptoms do not improve. Admits to subjective fever. Also states that he woke up with a rash today on the trunk and extremities, and is pruritic, no difficulty breathing or swallowing. Denies nausea, vomiting. - Related Data Home Medications Medication Instructions Recorded Confirmed Atorvastatin [Lipitor] 80 mg PO HS 11/11/18 06/12/23 glipiZIDE [Glucotrol] 10 mg PO BID 01/05/19 06/12/23 Triamterene-Hctz 37.5-25Mg 1 tab PO DAILY 01/23/19 06/12/23 [Maxzide 37.5-25] carvediloL [Coreg] 25 mg PO BID 05/11/19 06/12/23 amLODIPine [Norvasc] 5 mg PO HS 07/21/20 06/12/23 hydrALAZINE HCL [Apresoline] 50 mg PO BID 07/21/20 06/12/23 oxyCODONE-APAP 10-325MG [Percocet 1 tab PO TID PRN 07/21/20 06/12/23 10-325 mg] Insulin Aspart Prot/Insuln Asp 20 unit SQ BID 04/09/22 06/12/23 [Novolog MIX 70-30 Flexpen] metFORMIN HCL [Glucophage] 1,000 mg PO BID 04/09/22 06/12/23 Clopidogrel [Plavix] 75 mg PO DAILY 05/13/23 06/12/23 Losartan Potassium 100 mg PO DAILY 05/13/23 06/12/23 Nitroglycerin Sl Tabs [Nitrostat] 0.4 mg SL Q5M PRN 06/12/23 06/12/23 Previous Rx's Medication Instructions Recorded Aspirin 81 mg PO DAILY #90 tab 04/11/22 Doxycycline [Vibramycin] 100 mg PO BID 10 Days #20 capsule 05/16/23 Ondansetron Odt [Zofran Odt] 4 mg PO Q8HR PRN #10 tab 05/25/23 Allergies Allergy/AdvReac Type Severity Reaction Status Date / Time vancomycin Allergy Rash/Hives Verified 06/12/23 21:59 Review of Systems ROS Statement: Those systems with pertinent positive or pertinent negative responses have been documented in the HPI. ROS Other: All systems not noted in ROS Statement are negative. Past Medical History Past Medical History: Chest Pain / Angina, Diabetes Mellitus, GERD/Reflux, Hypertension, Myocardial Infarction ([place]), Syncope Additional Past Medical History / Comment(s): NIDDM type II, hiatal hernia, nephrolithiasis, chronic low back pain, bilateral leg numbness, R great toe diabetic foot ulcer, past left olecranon bursitis, osteomyelitis in L4-L5 w/abx treatment via PICC line (2017), managed by dr tran. Last Myocardial Infarction Date:: 2021 History of Any Multi-Drug Resistant Organisms: MRSA Date of last positivie culture/infection: 05/16/23 MDRO Source:: right Lower Leg Past Surgical History: Appendectomy, Cholecystectomy, Heart Catheterization, Heart Catheterization With Stent, Orthopedic Surgery Additional Past Surgical History / Comment(s): RENAL ANGIOGRAM 2005 for HTN, cardiac cath 2005, LT WRIST TENDON REPAIR 2013, RT ROTATOR CUFF REPAIR, bilateral knee arthroscopies, I&D L axillae, PICC LINES REMOVED. [address] Ha in December of 2018 Past Anesthesia/Blood Transfusion Reactions: No Reported Reaction Date of Last Stent Placement:: 12/2018 Past Psychological History: No Psychological Hx Reported Smoking Status: Current every day smoker Past Alcohol Use History: None Reported Past Drug Use History: None Reported - Past Family History Father Family Medical History: Coronary Artery Disease (CAD), Diabetes Mellitus, Hypertension Additional Family Medical History / Comment(s): pt. reports his father had a four vessel CABG Mother Family Medical History: Cancer, Hypertension Additional Family Medical History / Comment(s): LUNG CANCER(NON SMOKER) General Exam Limitations: no limitations General appearance: alert, in no apparent distress Head exam: Present: atraumatic, normocephalic, normal inspection Eye exam: Present: normal appearance, EOMI. Absent: scleral icterus, periorbital swelling Neck exam: Present: normal inspection, full ROM Respiratory exam: Present: normal lung sounds bilaterally. Absent: respiratory distress, wheezes, rales, rhonchi, stridor Cardiovascular Exam: Present: regular rate, normal rhythm, normal heart sounds. Absent: systolic murmur, diastolic murmur, rubs, gallop, clicks Neurological exam: Present: alert, oriented X3, CN II-XII intact Psychiatric exam: Present: normal affect, normal mood Skin exam: Present: other (ulceration RLE) Course Vital Signs 06/12/23 06/12/23 06/12/23 19:46 20:54 21:40 Temperature 98.7 F Pulse Rate 77 80 71 Respiratory 18 18 18 Rate Blood Pressure 201/121 158/102 161/97 O2 Sat by Pulse 99 98 95 Oximetry Medical Decision Making - Medical Decision Making Was pt. sent in by a medical professional or institution (, PA, MEMBERSHIP COORDINATOR, urgent care, hospital, or intermediate...) When possible be specific @ -No Did you speak to anyone other than the patient for history (EMS, parent, family, police, friend...)? What history was obtained from this source @ -No Did you review nursing and triage notes (agree or disagree)? Why? @ -I reviewed and agree with nursing and triage notes Were old charts reviewed (outside hosp., previous admission, EMS record, old EKG, old radiological studies, urgent care reports/EKG's, intermediate records)? Report findings @ -No old charts were reviewed Differential Diagnosis (chest pain, altered mental status, abdominal pain women, abdominal pain men, vaginal bleeding, weakness, fever, dyspnea, syncope, headache, dizziness, GI bleed, back pain, seizure, CVA, palpatations, mental health, musculoskeletal)? @ -Differential Musculoskeletal Muscular strain, contusion, ligament sprain, fracture, arthritis, septic arthritis, bursitis, cellulitis, muscle spasm, nerve compression, DVT, arterial occlusion, herpes zoster, electrolyte abnormality, tumor.... This is not meant to be in all inclusive list EKG interpreted by me (3pts min.). @ -As above X-rays interpreted by me (1pt min.). @ -Mild generalized soft tissue swelling. Shallow wounds along both the medial and lateral aspect of the distal ankle and leg. No radiographic evidence for underlying osteomyelitis at this time CT interpreted by me (1pt min.). @ -None done U/S interpreted by me (1pt. min.). @ -None done What testing was considered but not performed or refused? (CT, X-rays, U/S, labs)? Why? @ -None What meds were considered but not given or refused? Why? @ -None Did you discuss the management of the patient with other professionals (juan lofton i.e. , PA, MEMBERSHIP COORDINATOR, lab, RT, psych nurse, social service agency director, tailings man, teacher, licensed loan officer, bilingual case manager)? Give summary @ -I spoke with Grisel Sands from [facility] group who accepted admission Was smoking cessation discussed for >3mins.? @ -No Was critical care preformed (if so, how long)? @ -No Were there social determinants of health that impacted care today? How? (Homelessness, low income, unemployed, alcoholism, drug addiction, transportation, low edu. Level, literacy, decrease access to med. care, care home, rehab)? @ -No Was there de-escalation of care discussed even if they declined (Discuss DNR or withdrawal of care, Hospice)? DNR status @ -No What co-morbidities impacted this encounter? (DM, HTN, Smoking, COPD, CAD, Cancer, CVA, ARF, Chemo, Hep., AIDS, mental health diagnosis, sleep apnea, morbid obesity)? @ -None Was patient admitted / discharged? Hospital course, mention meds given and route, prescriptions, significant lab abnormalities, going to OR and other pertinent info. @ -52-year-old male presenting with chief complaint of worsening wound to the right lower extremity. He has failed outpatient treatment with Bactrim and doxycycline. He was told by Dr. Tran recently if he continues to fail outpatient treatment he would require a PICC line. Lab work shows no leukocytosis or anemia. Mildly elevated BUN and creatinine. X-ray negative for osteomyelitis. Patient will be admitted for cellulitis. He started on clindamycin. He is agreeable with this plan. I discussed this case with my attending Dr. Weber Undiagnosed new problem with uncertain prognosis? @ -No Drug Therapy requiring intensive monitoring for toxicity (Heparin, Nitro, Ins ulin, Cardizem)? @ -No Were any procedures done? @ -No Diagnosis/symptom? @ -Cellulitis Acute, or Chronic, or Acute on Chronic? @ -Acute Uncomplicated (without systemic symptoms) or Complicated (systemic symptoms)? @ -Complicated Side effects of treatment? @ -No Exacerbation, Progression, or Severe Exacerbation? @ -No Poses a threat to life or bodily function? How? (Chest pain, [place], [place], pneumonia, PE, COPD, DKA, ARF, appy, cholecystitis, CVA, Diverticulitis, Homicidal, Suicidal, threat to staff... and all critical care pts) @ -Yes threat to limb - Lab Data Result diagrams: 06/12/23 20:46 06/12/23 20:46 Lab Results 06/12/23 06/12/23 06/12/23 Range/Units 20:46 20:46 20:46 WBC 8.8 (3.8-10.6) k/uL RBC 5.05 (4.30-5.90) m/uL Hgb 14.4 (13.0-17.5) gm/dL Hct 42.8 (39.0-53.0) % MCV 84.8 (80.0-100.0) fL MCH 28.5 (25.0-35.0) pg MCHC 33.6 (31.0-37.0) g/dL RDW 14.0 (11.5-15.5) % Plt Count 228 (150-450) k/uL MPV 8.4 Neutrophils % 75 % Lymphocytes % 15 % Monocytes % 6 % Eosinophils % 2 % Basophils % 1 % Neutrophils # 6.6 (1.3-7.7) k/uL Lymphocytes # 1.3 (1.0-4.8) k/uL Monocytes # 0.5 (0-1.0) k/uL Eosinophils # 0.2 (0-0.7) k/uL Basophils # 0.1 (0-0.2) k/uL Sodium 137 (137-145) mmol/L Potassium 4.0 (3.5-5.1) mmol/L Chloride 102 (98-107) mmol/L Carbon Dioxide 25 (22-30) mmol/L Anion Gap 10 mmol/L BUN 33 H (9-20) mg/dL Creatinine 1.49 H (0.66-1.25) mg/dL Est GFR (CKD-EPI)AfAm 61 (>60 ml/min/1.73 sqM) Est GFR (CKD-EPI)NonAf 53 (>60 ml/min/1.73 sqM) Glucose 260 H (74-99) mg/dL Plasma Lactic Acid Cb 1.6 (0.7-2.0) mmol/L Calcium 9.6 (8.4-10.2) mg/dL Total Bilirubin 0.7 (0.2-1.3) mg/dL AST 31 (17-59) U/L ALT 25 (4-49) U/L Alkaline Phosphatase 68 (38-126) U/L Total Protein 7.1 (6.3-8.2) g/dL Albumin 4.3 (3.5-5.0) g/dL Disposition Clinical Impression: Ulcer of right lower leg, Cellulitis Disposition: ADMITTED IP TO THIS [facility] Condition: Fair Referrals: Anuel Peters MD [Primary Care Provider] - 1-2 days Time of Disposition: 21:57
[2023-06-12] MEDS ORDERED: ACETAMINOPHEN TAB 325 MG TAB PO PRN (22:00)
[2023-06-12] MEDS ORDERED: NALOXONE 0.4 MG/ML 1 ML VIAL IV PRN (22:00)
[2023-06-12] MEDS ORDERED: HYDROcodone/APAP 5-325MG 1 EACH TAB PO PRN (22:00)
[2023-06-13] MEDS ORDERED: CLINDAMYCIN 600 MG in DEXTROSE 5% IN WATER 50 ML IVPB SCH ×2
[2023-06-13] MEDS: HYDROmorphone 1 MG/ML 1 ML SYRINGE IVP PRN ×7 (00:19→20:08)
[2023-06-13 08:39] LABS: Glucose,Whole Blood 415 mg/dL (70-110)
[2023-06-13] MEDS: carvediloL 12.5 MG TAB PO SCH ×2 (08:42→20:07)
[2023-06-13] MEDS: CLINDAMYCIN 600 MG in DEXTROSE 5% IN WATER 50 ML IVPB SCH ×6 (08:43→20:58)
[2023-06-13] MEDS: hydrALAZINE HCL 50 MG TAB PO SCH ×2 (08:43→20:07)
[2023-06-13] MEDS: ASPIRIN 81 MG PO SCH (08:43)
[2023-06-13] MEDS: glipiZIDE 10 MG TAB PO SCH ×2 (08:43→20:07)
[2023-06-13] MEDS: CLOPIDOGREL 75 MG TAB PO SCH (08:43)
[2023-06-13] MEDS: LOSARTAN 50 MG TAB PO SCH (08:43)
[2023-06-13] MEDS ORDERED: metFORMIN 500 MG TAB PO SCH (09:00)
[2023-06-13] MEDS: INSULN ASP PRT/INSULIN ASPART 100 UNIT/ML 10 ML VIAL SQ SCH ×2 (09:10→20:58)
[2023-06-13] MEDS: TRIAMTERENE-HCTZ 37.5-25MG 1 EACH TAB PO SCH (09:11)
[2023-06-13] MEDS ORDERED: DEXTROSE 50% SYRINGE 50 ML IVP PRN ×4 (09:36→13:12)
[2023-06-13 11:32] LABS: Glucose,Whole Blood 516 mg/dL (70-110)
[2023-06-13 11:58] VITALS: BMI 30.6
[2023-06-13] MEDS ORDERED: INSULIN ASPART (NovoLOG) 100 UNIT/ML VIAL SQ ONE (12:00)
[2023-06-13] MEDS: INSULIN ASPART (NovoLOG) 100 UNIT/ML VIAL SQ SCH ×4 (12:01→20:58)
--- NOTE | 2023-06-13 12:28 | P.GSCN ---
History of Present Illness Consult date: 06/13/23 Reason for Consult: Right lower extremity ulceration Requesting physician: Dalila Ross History of present illness: This is a pleasant 52-year-old patient with a past medical history including diabetes mellitus, chronic right lower extremity ulceration, MRSA, hypertension, myocardial infarction who normally takes Plavix presented to the emergency department for right lower extremity pain. Patient has had a diabetic ulcer to the lateral aspect of his right lower extremity just above the ankle for the last 6 months duration. He has been following with Dr. Jun Bowden for antibiotic therapy. Recently he had a wound culture in May of this year that was positive for MRSA. He was being treated with doxycycline. Patient states that the pain was progressively getting worse and he felt that the wound was getting larger so he came to the emergency department for further evaluation. He denies any fevers or chills. He has not been getting any local wound care. States within the last week that it was more red and had drainage. States he has been taking his antibiotics as directed, talk to Dr. Vidal was told that he should come in for further evaluation and possible PICC line for IV antibiotics. Patient had an x-ray of the right tib-fib which reported mild generalized soft tissue swelling. Shallow wounds on both the medial and lateral aspect of the distal leg and ankle. No radiographic evidence for underlying osteomyelitis at this time. Patient denies any current fevers, chills night sweats, no shortness of breath or chest pain, no abdominal pain, nausea or vomiting. Review of Systems A 14 point review systems was completed all pertinent positives and negatives as stated in the HPI. Past Medical History Past Medical History: Chest Pain / Angina, Diabetes Mellitus, GERD/Reflux, Hypertension, Myocardial Infarction ([place]), Syncope Additional Past Medical History / Comment(s): NIDDM type II, hiatal hernia, nephrolithiasis, chronic low back pain, bilateral leg numbness, R great toe diabetic foot ulcer, past left olecranon bursitis, osteomyelitis in L4-L5 w/abx treatment via PICC line (2017), managed by dr tran. Last Myocardial Infarction Date:: 2021 History of Any Multi-Drug Resistant Organisms: MRSA Year Discovered:: 05/16/23 MDRO Source:: right Lower Leg Past Surgical History: Appendectomy, Cholecystectomy, Heart Catheterization, Heart Catheterization With Stent, Orthopedic Surgery Additional Past Surgical History / Comment(s): RENAL ANGIOGRAM 2006 for HTN, cardiac cath 2005, LT WRIST TENDON REPAIR 2013, RT ROTATOR CUFF REPAIR, bilateral knee arthroscopies, I&D L axillae, PICC LINES REMOVED. [address] Ha in December of 2018 Past Anesthesia/Blood Transfusion Reactions: No Reported Reaction Date of Last Stent Placement:: 12/2018 Past Psychological History: No Psychological Hx Reported Additional Psychological History / Comment(s): Pt resides with his spouse and 3 children. Smoking Status: Current every day smoker Past Alcohol Use History: None Reported Additional Past Alcohol Use History / Comment(s): reports quarter pack per day Past Drug Use History: None Reported - Past Family History Father Family Medical History: Coronary Artery Disease (CAD), Diabetes Mellitus, Hypertension Additional Family Medical History / Comment(s): pt. reports his father had a four vessel CABG Mother Family Medical History: Cancer, Hypertension Additional Family Medical History / Comment(s): LUNG CANCER(NON SMOKER) Medications and Allergies Home Medications Medication Instructions Recorded Confirmed Type Atorvastatin [Lipitor] 80 mg PO HS 11/11/18 06/12/23 History glipiZIDE [Glucotrol] 10 mg PO BID 01/05/19 06/12/23 History Triamterene-Hctz 37.5-25Mg 1 tab PO DAILY 01/23/19 06/12/23 History [Maxzide 37.5-25] carvediloL [Coreg] 25 mg PO BID 05/11/19 06/12/23 History amLODIPine [Norvasc] 5 mg PO HS 07/21/20 06/12/23 History hydrALAZINE HCL [Apresoline] 50 mg PO BID 07/21/20 06/12/23 History oxyCODONE-APAP 10-325MG [Percocet 1 tab PO TID PRN 07/21/20 06/12/23 History 10-325 mg] Insulin Aspart Prot/Insuln Asp 20 unit SQ BID 04/09/22 06/12/23 History [Novolog MIX 70-30 Flexpen] metFORMIN HCL [Glucophage] 1,000 mg PO BID 04/09/22 06/12/23 History Aspirin 81 mg PO DAILY #90 tab 04/11/22 06/12/23 Rx Clopidogrel [Plavix] 75 mg PO DAILY 05/13/23 06/12/23 History Losartan Potassium 100 mg PO DAILY 05/13/23 06/12/23 History Doxycycline [Vibramycin] 100 mg PO BID 10 Days #20 capsule 05/16/23 06/12/23 Rx Ondansetron Odt [Zofran Odt] 4 mg PO Q8HR PRN #10 tab 05/25/23 06/12/23 Rx Nitroglycerin Sl Tabs [Nitrostat] 0.4 mg SL Q5M PRN 06/12/23 06/12/23 History Allergies Allergy/AdvReac Type Severity Reaction Status Date / Time vancomycin Allergy Rash/Hives Verified 06/12/23 21:59 Surgical - Exam Vital Signs Temp Pulse Resp BP Pulse Ox 98.7 F 77 18 201/121 99 06/12/23 19:46 06/12/23 19:46 06/12/23 19:46 06/12/23 19:46 06/12/23 19:46 General appearance: The patient is alert, oriented, appears in no acute distress. HET: Head is normocephalic and atraumatic. Pupils are equal and reactive. Neck: Supple. Heart: Regular. Lungs: Equal expansion, normal respiratory effort. Abdomen: Soft, nontender, nondistended. Extremities: Lower extremity lateral aspect of the ankle diabetic ulcer, dry, scabbed, mild erythema surrounding it with no drainage noted. Tender to palpation. Bilateral palpable DP and PT pulses. Neuro: Alert and oriented 3. Strength and sensation are grossly intact. Results - Labs 06/12/23 20:46 06/12/23 20:46 Abnormal Lab Results - Last 24 Hours (Table) 06/12/23 06/13/23 Range/Units 20:46 08:38 BUN 33 H (9-20) mg/dL Creatinine 1.49 H (0.66-1.25) mg/dL Glucose 260 H (74-99) mg/dL POC Glucose (mg/dL) 415 H (70-110) mg/dL Diabetes panel 06/12/23 Range/Units 20:46 Sodium 137 (137-145) mmol/L Potassium 4.0 (3.5-5.1) mmol/L Chloride 102 (98-107) mmol/L Carbon Dioxide 25 (22-30) mmol/L BUN 33 H (9-20) mg/dL Creatinine 1.49 H (0.66-1.25) mg/dL Glucose 260 H (74-99) mg/dL Calcium 9.6 (8.4-10.2) mg/dL AST 31 (17-59) U/L ALT 25 (4-49) U/L Alkaline Phosphatase 68 (38-126) U/L Total Protein 7.1 (6.3-8.2) g/dL Albumin 4.3 (3.5-5.0) g/dL Calcium panel 06/12/23 Range/Units 20:46 Calcium 9.6 (8.4-10.2) mg/dL Albumin 4.3 (3.5-5.0) g/dL Pituitary panel 06/12/23 Range/Units 20:46 Sodium 137 (137-145) mmol/L Potassium 4.0 (3.5-5.1) mmol/L Chloride 102 (98-107) mmol/L Carbon Dioxide 25 (22-30) mmol/L BUN 33 H (9-20) mg/dL Creatinine 1.49 H (0.66-1.25) mg/dL Glucose 260 H (74-99) mg/dL Calcium 9.6 (8.4-10.2) mg/dL Adrenal panel 06/12/23 Range/Units 20:46 Sodium 137 (137-145) mmol/L Potassium 4.0 (3.5-5.1) mmol/L Chloride 102 (98-107) mmol/L Carbon Dioxide 25 (22-30) mmol/L BUN 33 H (9-20) mg/dL Creatinine 1.49 H (0.66-1.25) mg/dL Glucose 260 H (74-99) mg/dL Calcium 9.6 (8.4-10.2) mg/dL Total Bilirubin 0.7 (0.2-1.3) mg/dL AST 31 (17-59) U/L ALT 25 (4-49) U/L Alkaline Phosphatase 68 (38-126) U/L Total Protein 7.1 (6.3-8.2) g/dL Albumin 4.3 (3.5-5.0) g/dL Assessment and Plan Assessment: 1. Right lower extremity chronic nonhealing diabetic ulcer 2. Recent MRSA infection 3. Diabetes mellitus Plan: 1. Antibiotics per recommendations from infectious disease 2. Consult to wound care and will need ongoing local wound care 3. Plan for surgical debridement tomorrow with possible deep tissue cultures and biopsy 4. Nothing by mouth after midnight Thank you for this consultation, we will continue to follow. The impression and plan of care has been dictated as directed. Dr. Feng I performed a history and examination of this patient, discussed the same with the dictator. I agree with the dictator's note ,documented as a scribe. Any additional findings or plans will be noted.
--- NOTE | 2023-06-13 13:09 | P.HPIM ---
History of Present Illness H&P Date: 06/13/23 History of present illness; patient is a 52-year-old gentleman with past medical history significant for diabetes mellitus, hypertension, wounds of right lower extremity presented to the ER because of worsening redness of right lower extremity. Patient stated he was discharged from the hospital after being treated with antibiotics for this right leg wound. Patient completed a round of antibiotics but pain and redness in right lower extremity continued to worsen. Patient is complaining of fevers. Was no complain of orthopnea or PND. No complaint of nausea, vomiting or pain. Denies any lethargy or weakness. Patient was seen by infectious disease and they recommended patient come into the hospital for evaluation Initial lab work done in the ER showed WBC 8.8, hemoglobin 14.4, platelet count 228, sodium 137, potassium 4, BUN 33, creatinine 1.49, glucose 260 x-ray right tibia-fibula showed mild generalized soft tissue swelling. wounds along both the medial and lateral aspect of the distal leg and ankle Patient admitted to medicine service REVIEW OF SYSTEMS: CONSTITUTIONAL: No fever, no malaise, no fatigue. HEENT: No recent visual problems or hearing problems. Denied any sore throat. CARDIOVASCULAR: No chest pain, orthopnea, PND, no palpitations, no syncope. PULMONARY: No shortness of breath, no cough, no hemoptysis. GASTROINTESTINAL: No diarrhea, no nausea, no vomiting, no abdominal pain. NEUROLOGICAL: No headaches, no weakness, no numbness. HEMATOLOGICAL: Denies any bleeding or petechiae. GENITOURINARY: Denies any burning micturition, frequency, or urgency. MUSCULOSKELETAL/RHEUMATOLOGICAL: As mentioned in HPI ENDOCRINE: Denies any polyuria or polydipsia. The rest of the 14-point review of systems is negative. PHYSICAL EXAMINATION: GENERAL: The patient is alert and oriented x3, not in any acute distress. Well developed, well nourished. HEENT: Pupils are round and equally reacting to light. EOMI. No scleral icterus. No conjunctival pallor. Normocephalic, atraumatic. No pharyngeal erythema. No thyromegaly. CARDIOVASCULAR: S1 and S2 present. No murmurs, rubs, or gallops. PULMONARY: Chest is clear to auscultation, no wheezing or crackles. ABDOMEN: Soft, nontender, nondistended, normoactive bowel sounds. No palpable organomegaly. MUSCULOSKELETAL: No joint swelling or deformity. EXTREMITIES: Right lower extremity erythema, ulcer seen NEUROLOGICAL: Gross neurological examination did not reveal any focal deficits. SKIN: No rashes. Assessment and plan Right lower extremity cellulitis Right lower extremity chronic nonhealing diabetic ulcer Hypertension Hyperlipidemia Diabetes mellitus Monitor vital signs Monitor CBC Monitor CMP Blood cultures ordered Continue wound care Continue IV clindamycin Consult ID Consult vascular Labs and medication were reviewed.. Continue same treatment. Continue with symptomatic treatment. Resume home medication. Monitor labs and vitals. DVT and GI prophylaxis. Further recommendations as per clinical course of the patient Dictation was produced using [employer] dictation software. please excuse any grammatical, word or spelling errors. Past Medical History Past Medical History: Chest Pain / Angina, Diabetes Mellitus, GERD/Reflux, Hypertension, Myocardial Infarction ([place]), Syncope Additional Past Medical History / Comment(s): NIDDM type II, hiatal hernia, n ephrolithiasis, chronic low back pain, bilateral leg numbness, R great toe diabetic foot ulcer, past left olecranon bursitis, osteomyelitis in L4-L5 w/abx treatment via PICC line (2017), managed by dr tran. Last Myocardial Infarction Date:: 2021 History of Any Multi-Drug Resistant Organisms: MRSA Date of last positivie culture/infection: 05/16/23 MDRO Source:: right Lower Leg Past Surgical History: Appendectomy, Cholecystectomy, Heart Catheterization, Heart Catheterization With Stent, Orthopedic Surgery Additional Past Surgical History / Comment(s): RENAL ANGIOGRAM 2005 for HTN, cardiac cath 2005, LT WRIST TENDON REPAIR 2013, RT ROTATOR CUFF REPAIR, bilateral knee arthroscopies, I&D L axillae, PICC LINES REMOVED. [address] Ha in December of 2018 Past Anesthesia/Blood Transfusion Reactions: No Reported Reaction Date of Last Stent Placement:: 12/2018 Past Psychological History: No Psychological Hx Reported Additional Psychological History / Comment(s): Pt resides with his spouse and 3 children. Smoking Status: Current every day smoker Past Alcohol Use History: None Reported Additional Past Alcohol Use History / Comment(s): reports quarter pack per day Past Drug Use History: None Reported - Past Family History Father Family Medical History: Coronary Artery Disease (CAD), Diabetes Mellitus, Hypertension Additional Family Medical History / Comment(s): pt. reports his father had a four vessel CABG Mother Family Medical History: Cancer, Hypertension Additional Family Medical History / Comment(s): LUNG CANCER(NON SMOKER) Medications and Allergies Home Medications Medication Instructions Recorded Confirmed Type Atorvastatin [Lipitor] 80 mg PO HS 11/11/18 06/12/23 History glipiZIDE [Glucotrol] 10 mg PO BID 01/05/19 06/12/23 History Triamterene-Hctz 37.5-25Mg 1 tab PO DAILY 01/23/19 06/12/23 History [Maxzide 37.5-25] carvediloL [Coreg] 25 mg PO BID 05/11/19 06/12/23 History amLODIPine [Norvasc] 5 mg PO HS 07/21/20 06/12/23 History hydrALAZINE HCL [Apresoline] 50 mg PO BID 07/21/20 06/12/23 History oxyCODONE-APAP 10-325MG [Percocet 1 tab PO TID PRN 07/21/20 06/12/23 History 10-325 mg] Insulin Aspart Prot/Insuln Asp 20 unit SQ BID 04/09/22 06/12/23 History [Novolog MIX 70-30 Flexpen] metFORMIN HCL [Glucophage] 1,000 mg PO BID 04/09/22 06/12/23 History Aspirin 81 mg PO DAILY #90 tab 04/11/22 06/12/23 Rx Clopidogrel [Plavix] 75 mg PO DAILY 05/13/23 06/12/23 History Losartan Potassium 100 mg PO DAILY 05/13/23 06/12/23 History Doxycycline [Vibramycin] 100 mg PO BID 10 Days #20 capsule 05/16/23 06/12/23 Rx Ondansetron Odt [Zofran Odt] 4 mg PO Q8HR PRN #10 tab 05/25/23 06/12/23 Rx Nitroglycerin Sl Tabs [Nitrostat] 0.4 mg SL Q5M PRN 06/12/23 06/12/23 History Allergies Allergy/AdvReac Type Severity Reaction Status Date / Time vancomycin Allergy Rash/Hives Verified 06/12/23 21:59 Physical Exam Vitals: Vital Signs Temp Pulse Pulse Resp BP BP Pulse Ox 06/13/23 07:59 99.5 F 83 18 157/84 96 06/13/23 06:04 59 L 18 164/90 98 06/13/23 03:39 60 18 151/95 95 06/13/23 00:18 58 L 18 149/89 96 06/12/23 22:20 68 18 134/83 95 06/12/23 21:40 71 18 161/97 95 06/12/23 20:54 80 18 158/102 98 06/12/23 19:46 98.7 F 77 18 201/121 99 Intake and Output 06/12/23 06/13/23 06/13/23 22:59 06:59 14:59 Other: Weight 111.13 kg 111.13 kg Results CBC & Chem 7: 06/12/23 20:46 06/12/23 20:46 Labs: Abnormal Lab Results - Last 24 Hours (Table) 06/12/23 06/13/23 Range/Units 20:46 08:38 BUN 33 H (9-20) mg/dL Creatinine 1.49 H (0.66-1.25) mg/dL Glucose 260 H (74-99) mg/dL POC Glucose (mg/dL) 415 H (70-110) mg/dL Thrombosis Risk Factor Assmnt - Choose All That Apply Any of the Below Risk Factors Present?: Yes Each Factor Represents 1 point: Age 41-60 years Other Risk Factors: No Thrombosis Risk Factor Assessment Total Risk Factor Score: 1 Thrombosis Risk Factor Assessment Level: Low Risk
[2023-06-13 16:34] LABS: Glucose,Whole Blood 291 mg/dL (70-110)
[2023-06-13] MEDS: ATORVASTATIN 80 MG TAB PO SCH (20:07)
[2023-06-13] MEDS: amLODIPine 5 MG TAB PO SCH (20:07)
[2023-06-13 20:48] LABS: Glucose,Whole Blood 237 mg/dL (70-110)
--- NOTE | 2023-06-13 22:18 | P.CONS ---
History of Present Illness - Reason for Consult Consult date: 06/13/23 - History of Present Illness Patient is a 52-year-old male with a past medical history significant for diabetes mellitus reflux hypertension [place], patient did have a history of nonhealing wound to the right lower extremity with the patient has for couple of months now patient has been treated in the outpatient setting for cellulitis or wound infection culture positive for MRSA and the patient has been on a course of Bactrim as well as doxycycline patient mention he was doing better the day of presentation to the hospital. The patient went out golfing with his son and when he removed the dressing with his golf club patient noted to have purulent drainage from his right leg wound is also been complaining of increasing pain to the right leg wound area describing it to be throbbing almost 10 or 10 in severity without radiation some improvement with the pain medication with worsening symptoms patient did present to the hospital on arrival to the ER patient was afebrile he did have a low-grade fever of 99.5 F this morning patient had normal white count BUN/creatinine mildly elevated levels of the normal x-ray of the tibia-fibula mild generalized soft tissue swelling no radiographic evidence of underlying osteomyelitis patient was started on clindamycin because of his vancomycin allergy infectious disease was consulted for further management of antibiotics Past Medical History Past Medical History: Chest Pain / Angina, Diabetes Mellitus, GERD/Reflux, Hyper tension, Myocardial Infarction ([place]), Syncope Additional Past Medical History / Comment(s): NIDDM type II, hiatal hernia, nephrolithiasis, chronic low back pain, bilateral leg numbness, R great toe diabetic foot ulcer, past left olecranon bursitis, osteomyelitis in L4-L5 w/abx treatment via PICC line (2017), managed by dr tran. Last Myocardial Infarction Date:: 2021 History of Any Multi-Drug Resistant Organisms: MRSA Year Discovered:: 05/16/23 MDRO Source:: right Lower Leg Past Surgical History: Appendectomy, Cholecystectomy, Heart Catheterization, Heart Catheterization With Stent, Orthopedic Surgery Additional Past Surgical History / Comment(s): RENAL ANGIOGRAM 2005 for HTN, cardiac cath 2005, LT WRIST TENDON REPAIR 2013, RT ROTATOR CUFF REPAIR, bilateral knee arthroscopies, I&D L axillae, PICC LINES REMOVED. [address] Ha in December of 2018 Past Anesthesia/Blood Transfusion Reactions: No Reported Reaction Date of Last Stent Placement:: 12/2018 Past Psychological History: No Psychological Hx Reported Additional Psychological History / Comment(s): Pt resides with his spouse and 3 children. Smoking Status: Current every day smoker Past Alcohol Use History: None Reported Additional Past Alcohol Use History / Comment(s): reports quarter pack per day Past Drug Use History: None Reported - Past Family History Father Family Medical History: Coronary Artery Disease (CAD), Diabetes Mellitus, Hypertension Additional Family Medical History / Comment(s): pt. reports his father had a four vessel CABG Mother Family Medical History: Cancer, Hypertension Additional Family Medical History / Comment(s): LUNG CANCER(NON SMOKER) Medications and Allergies Home Medications Medication Instructions Recorded Confirmed Type Atorvastatin [Lipitor] 80 mg PO HS 11/11/18 06/12/23 History glipiZIDE [Glucotrol] 10 mg PO BID 01/05/19 06/12/23 History Triamterene-Hctz 37.5-25Mg 1 tab PO DAILY 01/23/19 06/12/23 History [Maxzide 37.5-25] carvediloL [Coreg] 25 mg PO BID 05/11/19 06/12/23 History amLODIPine [Norvasc] 5 mg PO HS 07/21/20 06/12/23 History hydrALAZINE HCL [Apresoline] 50 mg PO BID 07/21/20 06/12/23 History oxyCODONE-APAP 10-325MG [Percocet 1 tab PO TID PRN 07/21/20 06/12/23 History 10-325 mg] Insulin Aspart Prot/Insuln Asp 20 unit SQ BID 04/09/22 06/12/23 History [Novolog MIX 70-30 Flexpen] metFORMIN HCL [Glucophage] 1,000 mg PO BID 04/09/22 06/12/23 History Aspirin 81 mg PO DAILY #90 tab 04/11/22 06/12/23 Rx Clopidogrel [Plavix] 75 mg PO DAILY 05/13/23 06/12/23 History Losartan Potassium 100 mg PO DAILY 05/13/23 06/12/23 History Doxycycline [Vibramycin] 100 mg PO BID 10 Days #20 capsule 05/16/23 06/12/23 Rx Ondansetron Odt [Zofran Odt] 4 mg PO Q8HR PRN #10 tab 05/25/23 06/12/23 Rx Nitroglycerin Sl Tabs [Nitrostat] 0.4 mg SL Q5M PRN 06/12/23 06/12/23 History Allergies Allergy/AdvReac Type Severity Reaction Status Date / Time vancomycin Allergy Rash/Hives Verified 06/12/23 21:59 Physical Exam Vitals: Vital Signs Temp Pulse Pulse Resp BP BP Pulse Ox 06/13/23 07:59 99.5 F 83 18 157/84 96 06/13/23 06:04 59 L 18 164/90 98 06/13/23 03:39 60 18 151/95 95 06/13/23 00:18 58 L 18 149/89 96 06/12/23 22:20 68 18 134/83 95 06/12/23 21:40 71 18 161/97 95 06/12/23 20:54 80 18 158/102 98 06/12/23 19:46 98.7 F 77 18 201/121 99 Intake and Output 06/12/23 06/13/23 06/13/23 22:59 06:59 14:59 Other: Weight 111.13 kg 111.13 kg Results CBC & Chem 7: 06/12/23 20:46 06/12/23 20:46 Labs: Abnormal Lab Results - Last 24 Hours (Table) 06/12/23 06/13/23 Range/Units 20:46 08:38 BUN 33 H (9-20) mg/dL Creatinine 1.49 H (0.66-1.25) mg/dL Glucose 260 H (74-99) mg/dL POC Glucose (mg/dL) 415 H (70-110) mg/dL Assessment and Plan Plan: 1patient was in the hospital with a nonhealing wound to the right lower leg area that has been there for more than a month now outpatient culture positive for MRSA recently has been on oral doxycycline x-rays negative for any bony changes, with a nonhealing wound and significant pain but no fever elevated white count question of possible pyoderma gangrenosum. 2care has been discussed in detail with the vascular surgeon for debridement deep culture as well as biopsy to rule out pyoderma. 3vancomycin allergy through limit the number of antibiotics safe to use. 4renal insufficiency high risk of nephrotoxicity. 5patient to continue with the clindamycin while waiting for the cultures and work-up to be completed. We will follow on clinical condition and cultures to further adjust medication if needed Thank you for this consultation we will follow the patient along with you Dictation was produced using [employer] dictation software. please excuse any grammatical, word or spelling errors. Time with Patient: Greater than 30
[2023-06-14] MEDS: HYDROmorphone 1 MG/ML 1 ML SYRINGE IVP PRN ×6 (00:37→23:21)
[2023-06-14 06:26] LABS: Glucose,Whole Blood 238 mg/dL (70-110)
[2023-06-14] MEDS: CLINDAMYCIN 600 MG in DEXTROSE 5% IN WATER 50 ML IVPB SCH ×6 (06:32→21:57)
[2023-06-14] MEDS: INSULIN ASPART (NovoLOG) 100 UNIT/ML VIAL SQ SCH ×7 (06:33→21:57)
[2023-06-14] MEDS ORDERED: LACTATED RINGERS 1,000 ML IV ONE (09:23)
[2023-06-14] MEDS ORDERED: ONDANSETRON 4 MG/2 ML VIAL ONE (09:28)
[2023-06-14 09:35] LABS: Glucose,Whole Blood 225 mg/dL (70-110)
[2023-06-14] MEDS: ASPIRIN 81 MG PO SCH (09:45)
[2023-06-14] MEDS: hydrALAZINE HCL 50 MG TAB PO SCH ×2 (09:45→20:05)
[2023-06-14] MEDS: CLOPIDOGREL 75 MG TAB PO SCH (09:45)
[2023-06-14] MEDS: INSULN ASP PRT/INSULIN ASPART 100 UNIT/ML 10 ML VIAL SQ SCH ×2 (09:45→21:56)
[2023-06-14] MEDS: glipiZIDE 10 MG TAB PO SCH ×2 (09:45→20:05)
[2023-06-14] MEDS: carvediloL 12.5 MG TAB PO SCH (09:45)
[2023-06-14] MEDS: TRIAMTERENE-HCTZ 37.5-25MG 1 EACH TAB PO SCH (09:46)
[2023-06-14] MEDS: LOSARTAN 50 MG TAB PO SCH (09:46)
[2023-06-14] MEDS ORDERED: INSULIN ASPART (NovoLOG) 100 UNIT/ML VIAL SQ ONE (10:20)
[2023-06-14] MEDS ORDERED: fentaNYL (PF) 50 MCG/ML 2 ML AMP ONE (10:59)
[2023-06-14] MEDS ORDERED: PROPOFOL 10 MG/ML 20 ML VIAL IV ONE (10:59)
[2023-06-14] MEDS ORDERED: KETAMINE 10 MG/ML 20 ML VIAL ONE (10:59)
[2023-06-14] MEDS ORDERED: MIDAZOLAM 2 MG/2 ML VIAL ONE (10:59)
[2023-06-14] MEDS ORDERED: NEOMYCIN-BACITRACIN-POLY OINT 14 GM TUBE TOPICAL ONE (11:22)
[2023-06-14] MEDS ORDERED: HYDROmorphone 0.5 MG/0.5 ML SYRINGE IVP ONE ×4 (11:35→12:02)
--- NOTE | 2023-06-14 11:53 | P.CONS ---
History of Present Illness - Reason for Consult Consult date: 06/14/23 wound care - History of Present Illness This is a pleasant 52-year-old patient with a past medical history including diabetes mellitus, chronic right lower extremity ulceration, MRSA, hypertension, myocardial infarction. Presented to the emergency department for right lower extremity pain. Patient has had a diabetic ulcer to the lateral aspect of his right lower extremity just above the ankle for the last 6 months duration. Following for outpatient care. Recently he had a wound culture in May of this year that was positive for MRSA. He was being treated with doxycycline. Patient states that the pain was progressively getting worse and he felt that the wound was getting larger so he came to the emergency department for further evaluation. He denies any fevers or chills. He has not been getting any local wound care. States within the last week that it was more red and had drainage. Shallow wounds on both the medial and lateral aspect of the distal leg and ankle. Patient currently undergoing a surgical debridement and culture. Review Of Systems: Constitutional: No fever, no chills, no night sweats. No weight change. No weakness, fatigue or lethargy. No daytime sleepiness. Integumentary:reports wounds, no lesions. No rash or pruritus. No unusual bruising. No change in hair or nails. Physical exam: General Appearance: Alert, cooperative, no distress, appears stated age. Skin: See HPI all other Skin color, texture, tugor normal, no rashes or lesions. Neurologic: Alert oriented x3 Assessment: 1. Nonhealing ulceration with fatty layer exposure right ankle 2. Diabetes to skin ulceration 3. MRSA Plan: 1. Apply Santyl, saline moistened gauze, dry gauze, rolled gauze and secure wi th paper tape. Patient would benefit from advanced wound care and wound care setting. Would be happy to see him after he is discharged. Thank you for the consultation any questions to contact the wound care center DNP note has been reviewed and discussed with Dr. Weston and the impression and plan of care has been directed as dictated. Past Medical History Past Medical History: Chest Pain / Angina, Diabetes Mellitus, GERD/Reflux, Hypertension, Myocardial Infarction ([place]), Syncope Additional Past Medical History / Comment(s): NIDDM type II, hiatal hernia, nephrolithiasis, chronic low back pain, bilateral leg numbness, R great toe diabetic foot ulcer, past left olecranon bursitis, osteomyelitis in L4-L5 w/abx treatment via PICC line (2018), managed by dr tran. Last Myocardial Infarction Date:: 2021 History of Any Multi-Drug Resistant Organisms: MRSA Year Discovered:: 05/16/23 MDRO Source:: right Lower Leg Past Surgical History: Appendectomy, Cholecystectomy, Heart Catheterization, Heart Catheterization With Stent, Orthopedic Surgery Additional Past Surgical History / Comment(s): RENAL ANGIOGRAM 2005 for HTN, cardiac cath 2005, LT WRIST TENDON REPAIR 2013, RT ROTATOR CUFF REPAIR, bilateral knee arthroscopies, I&D L axillae, PICC LINES REMOVED. [address] Ha in December of 2018 Past Anesthesia/Blood Transfusion Reactions: No Reported Reaction Date of Last Stent Placement:: 12/2018 Past Psychological History: No Psychological Hx Reported Additional Psychological History / Comment(s): Pt resides with his spouse and 3 children. Smoking Status: Current every day smoker Past Alcohol Use History: None Reported Additional Past Alcohol Use History / Comment(s): reports quarter pack per day Past Drug Use History: None Reported - Past Family History Father Family Medical History: Coronary Artery Disease (CAD), Diabetes Mellitus, Hypertension Additional Family Medical History / Comment(s): pt. reports his father had a four vessel CABG Mother Family Medical History: Cancer, Hypertension Additional Family Medical History / Comment(s): LUNG CANCER(NON SMOKER) Medications and Allergies Home Medications Medication Instructions Recorded Confirmed Type Atorvastatin [Lipitor] 80 mg PO HS 11/11/18 06/12/23 History glipiZIDE [Glucotrol] 10 mg PO BID 01/05/19 06/12/23 History Triamterene-Hctz 37.5-25Mg 1 tab PO DAILY 01/23/19 06/12/23 History [Maxzide 37.5-25] carvediloL [Coreg] 25 mg PO BID 05/11/19 06/12/23 History amLODIPine [Norvasc] 5 mg PO HS 07/21/20 06/12/23 History hydrALAZINE HCL [Apresoline] 50 mg PO BID 07/21/20 06/12/23 History oxyCODONE-APAP 10-325MG [Percocet 1 tab PO TID PRN 07/21/20 06/12/23 History 10-325 mg] Insulin Aspart Prot/Insuln Asp 20 unit SQ BID 04/09/22 06/12/23 History [Novolog MIX 70-30 Flexpen] metFORMIN HCL [Glucophage] 1,000 mg PO BID 04/09/22 06/12/23 History Aspirin 81 mg PO DAILY #90 tab 04/11/22 06/12/23 Rx Clopidogrel [Plavix] 75 mg PO DAILY 05/13/23 06/12/23 History Losartan Potassium 100 mg PO DAILY 05/13/23 06/12/23 History Doxycycline [Vibramycin] 100 mg PO BID 10 Days #20 capsule 05/16/23 06/12/23 Rx Ondansetron Odt [Zofran Odt] 4 mg PO Q8HR PRN #10 tab 05/25/23 06/12/23 Rx Nitroglycerin Sl Tabs [Nitrostat] 0.4 mg SL Q5M PRN 06/12/23 06/12/23 History Allergies Allergy/AdvReac Type Severity Reaction Status Date / Time vancomycin Allergy Rash/Hives Verified 06/12/23 21:59 Physical Exam Vitals: Vital Signs Temp Pulse Resp BP BP Pulse Ox 06/14/23 11:27 98.6 F 59 L 16 123/81 93 L 06/14/23 09:22 97.2 F L 53 L 16 156/83 98 06/14/23 07:18 98.0 F 49 L 16 129/79 96 06/14/23 01:32 97.9 F 53 L 17 110/69 95 06/13/23 19:44 98.3 F 59 L 20 166/100 96 06/13/23 14:00 97.0 F L 68 18 131/78 95 Intake and Output 06/13/23 06/14/23 06/14/23 22:59 06:59 14:59 Intake Total 300 Balance 300 Intake: IV 300 Other: # Voids 2 Results CBC & Chem 7: 06/12/23 20:46 06/12/23 20:46 Labs: Abnormal Lab Results - Last 24 Hours (Table) 06/13/23 06/13/23 06/14/23 Range/Units 16:33 20:45 06:24 POC Glucose (mg/dL) 291 H 237 H (70-110) mg/dL Hemoglobin A1c 9.6 H (<=6.0) % 06/14/23 06/14/23 Range/Units 06:24 09:33 POC Glucose (mg/dL) 238 H 225 H (70-110) mg/dL Hemoglobin A1c (<=6.0) % Microbiology - Last 24 Hours (Table) 06/12/23 20:46 Blood Culture - Preliminary Blood Assessment and Plan (1) Non-pressure chronic ulcer of right ankle with fat layer exposed Current Visit: Yes Status: Acute Code(s): L97.312 - NON-PRS CHRONIC ULCER OF RIGHT ANKLE W FAT LAYER EXPOSED SNOMED Code(s): 54349586564998090 (2) Type 2 diabetes mellitus with other skin ulcer Current Visit: Yes Status: Acute Code(s): E11.622 - TYPE 2 DIABETES MELLITUS WITH OTHER SKIN ULCER; L98.499 - NON-PRESSURE CHRONIC ULCER OF SKIN OF SITES W UNSP SEVERITY SNOMED Code(s): 268531748 (3) MRSA (methicillin resistant Staphylococcus aureus) infection Current Visit: Yes Status: Acute Code(s): A49.02 - METHICILLIN RESIS STAPH INFECTION, UNSP SITE SNOMED Code(s): 814175540
--- NOTE | 2023-06-14 11:53 | P.OP ---
Date of Procedure: 06/14/23 Description of Procedure: Preoperative diagnosis: Nonhealing right lower extremity wound Postoperative diagnosis: Same Procedure: Sharp excisional debridement right lower extremity wound to subcutaneous tissue measuring 5.3 x 2.1 x 0.3 cm Punch biopsy right lower extremity wound 2 Surgeon: Yuli Feng D.O. EBL: Less than 5 mL IV fluids: See records Urine output: Not measured Drains: none Complications: None immediately apparent Condition: Stable to recovery Operative indication and findings: Patient is a 52-year-old male with a right lower extremity wound that has been nonhealing for the past many months. Due to the infection of his discussions regarding debridement and the chronic nature there was discussion regarding biopsy. The patient presents for this today. Questions are answered. Risks and benefits are discussed. He seemingly understands and is willing to proceed Procedure in detail: Patient was taken to the operative suite and placed in supine position. The right lower extremity is prepped and draped in usual sterile fashion. A preprocedure timeout performed, all parties were in agreement. Curet was used and the area of the wound was debrided. The devitalized tissue and mild eschar was removed. This was cleared down to the level of healthy appearing subcutaneous tissue. The wound measurements were as above. A 3 mm punch biopsy was then utilized to biopsy the wound at the central portion of the wound as well as at the edge. Hemostasis was controlled with pre ssure. The area was irrigated and bacitracin ointment was placed. The patient transferred to recovery in stable condition having tolerated the procedure well.
[2023-06-14 13:27] LABS: Glucose,Whole Blood 211 mg/dL (70-110)
--- NOTE | 2023-06-14 15:38 | P.PN ---
Subjective Progress Note Date: 06/14/23 * 52-year-old gentleman with past medical history significant for diabetes mellitus, hypertension, wounds of right lower extremity presented to the ER because of worsening redness of right lower extremity. Patient stated he was discharged from the hospital after being treated with antibiotics for this right leg wound. Patient completed a round of antibiotics but pain and redness in right lower extremity continued to worsen. Patient is complaining of fevers. Was no complain of orthopnea or PND. No complaint of nausea, vomiting or pain. Denies any lethargy or weakness. Patient was seen by infectious disease and they recommended patient come into the hospital for evaluation * Initial lab work done in the ER showed WBC 8.8, hemoglobin 14.4, platelet count 228, sodium 137, potassium 4, BUN 33, creatinine 1.49, glucose 260 * x-ray right tibia-fibula showed mild generalized soft tissue swelling. wounds along both the medial and lateral aspect of the distal leg and ankle * Consultation obtained from infectious disease and vascular surgery * 06/14: Patient underwent sharp excisional debridement right lower extremity with surgery postoperative day 0 Objective - Vital Signs Vital signs: Vital Signs Temp 98.6 F 06/14/23 11:27 Pulse 50 L 06/14/23 12:27 Resp 18 06/14/23 12:27 BP 104/62 06/14/23 12:27 Pulse Ox 96 06/14/23 12:27 FiO2 Intake & Output 06/13/23 06/14/23 06/14/23 18:59 06:59 18:59 Intake Total 700 Balance 700 Weight 111.13 kg Intake: IV 700 Other: # Voids 2 - Exam PHYSICAL EXAMINATION: GENERAL: The patient is alert and oriented x3, not in any acute distress. Well developed, well nourished. HEENT: Pupils are round and equally reacting to light. EOMI. No scleral icterus. No conjunctival pallor. Normocephalic, atraumatic. No pharyngeal erythema. No t hyromegaly. CARDIOVASCULAR: S1 and S2 present. No murmurs, rubs, or gallops. PULMONARY: Chest is clear to auscultation, no wheezing or crackles. ABDOMEN: Soft, nontender, nondistended, normoactive bowel sounds. No palpable organomegaly. MUSCULOSKELETAL: No joint swelling or deformity. EXTREMITIES: Extremity wound bandaged post incision and drainage NEUROLOGICAL: Gross neurological examination did not reveal any focal deficits. SKIN: No rashes. - Labs CBC & Chem 7: 06/12/23 20:46 06/12/23 20:46 Labs: Abnormal Lab Results - Last 24 Hours (Table) 06/13/23 06/13/23 06/14/23 Range/Units 16:33 20:45 06:24 POC Glucose (mg/dL) 291 H 237 H (70-110) mg/dL Hemoglobin A1c 9.6 H (<=6.0) % 06/14/23 06/14/23 06/14/23 Range/Units 06:24 09:33 13:26 POC Glucose (mg/dL) 238 H 225 H 211 H (70-110) mg/dL Hemoglobin A1c (<=6.0) % Microbiology - Last 24 Hours (Table) 06/12/23 20:46 Blood Culture - Preliminary Blood Assessment and Plan Assessment: Assessment and plan Right lower extremity cellulitis Right lower extremity chronic nonhealing diabetic ulcer Hypertension Hyperlipidemia Diabetes mellitus * In regards to diabetic foot ulcer, consultation obtained from infectious disease and vascular surgery, status post excisional debridement * Continue patient on IV clindamycin, follow-up on blood cultures * Continue patient on amlodipine for history of hypertension, continue hydrochlorothiazide * In regards to diabetes mellitus Accu-Cheks before meals at bedtime continue patient on NovoLog, glipizide and correctional insulin * Patient noted to have episode of bradycardia and scoring discontinued
[2023-06-14 16:21] LABS: Glucose,Whole Blood 217 mg/dL (70-110)
[2023-06-14] MEDS: oxyCODONE-APAP 10-325MG 1 EACH TAB PO PRN (18:32)
[2023-06-14] MEDS: ATORVASTATIN 80 MG TAB PO SCH (20:05)
[2023-06-14] MEDS: amLODIPine 5 MG TAB PO SCH (20:05)
[2023-06-14 20:44] LABS: Glucose,Whole Blood 181 mg/dL (70-110)
[2023-06-15] MEDS: HYDROmorphone 1 MG/ML 1 ML SYRINGE IVP PRN ×8 (03:14→23:58)
[2023-06-15] MEDS: CLINDAMYCIN 600 MG in DEXTROSE 5% IN WATER 50 ML IVPB SCH ×6 (05:48→21:18)
[2023-06-15 06:10] LABS: Glucose,Whole Blood 113 mg/dL (70-110)
[2023-06-15] MEDS: INSULIN ASPART (NovoLOG) 100 UNIT/ML VIAL SQ SCH ×7 (06:21→21:17)
[2023-06-15] MEDS: ASPIRIN 81 MG PO SCH (09:50)
[2023-06-15] MEDS: CLOPIDOGREL 75 MG TAB PO SCH (09:50)
[2023-06-15] MEDS: TRIAMTERENE-HCTZ 37.5-25MG 1 EACH TAB PO SCH (09:50)
[2023-06-15] MEDS: LOSARTAN 50 MG TAB PO SCH (09:50)
[2023-06-15] MEDS: glipiZIDE 10 MG TAB PO SCH ×2 (09:50→21:16)
[2023-06-15] MEDS: hydrALAZINE HCL 50 MG TAB PO SCH ×2 (09:50→21:16)
[2023-06-15] MEDS: INSULN ASP PRT/INSULIN ASPART 100 UNIT/ML 10 ML VIAL SQ SCH ×2 (09:52→21:18)
[2023-06-15 09:53] LABS: Glucose,Whole Blood 181 mg/dL (70-110)
[2023-06-15] MEDS: oxyCODONE-APAP 10-325MG 1 EACH TAB PO PRN (10:39)
[2023-06-15 10:56] LABS: HCT 44.4 % (39.6-50.0); HGB 14.1 d/dL (13.0-17.0); MCH 27.8 pg (27.0-32.0); MCHC 31.8 d/dL (32.0-37.0); MCV 87.4 FL (80.0-97.0); Mean Platelet Volume 10.8 FL (9.5-12.2); NRBC Per 100 WBC 0 X 10*3/uL (0.00-0.01); Platelet Count 231 X 10*3/uL (140-440); RBC 5.08 X 10*6/uL (4.40-5.60); RDW 14.2 % (11.5-14.5); WBC 7.72 X 10*3/uL (4.50-10.00)
[2023-06-15 11:01] LABS: Blood Urea Nitrogen 27.1 mg/dL (9.0-27.0); Carbon Dioxide 30.4 mmol/L (21.6-31.8); Chloride 101 mmol/L (96-109); Glucose 107 mg/dL (70-110); Potassium 3.6 mmol/L (3.5-5.5); Sodium 143 mmol/L (135-145)
[2023-06-15] MEDS: COLLAGENASE 250 UNIT/GM OINTMENT 30 GM TUBE TOPICAL SCH (12:09)
--- NOTE | 2023-06-15 12:37 | P.PN ---
Subjective Progress Note Date: 06/15/23 Principal diagnosis: Lower extremity ulcer Patient seen and examined today as a follow-up. Yesterday he underwent debridement and skin biopsy of the right lower extremity. Wound care management as following as well with recommendations for local wound care. Patient has some tenderness in right lower extremity. Denies any fevers or chills. Objective - Vital Signs Vital signs: Vital Signs Temp 97.6 F 06/15/23 06:45 Pulse 51 L 06/15/23 06:45 Resp 18 06/15/23 06:45 BP 138/91 06/15/23 06:45 Pulse Ox 97 06/15/23 06:45 FiO2 Intake & Output 06/14/23 06/15/23 06/15/23 18:59 06:59 18:59 Intake Total 700 Output Total 500 Balance 200 Intake: IV 700 Output: Urine 500 Other: # Voids 2 - Exam General appearance: The patient is alert, oriented, appears in no acute distress. HET: Head is normocephalic and atraumatic. Neck: Supple. Heart: Regular. Lungs: Equal expansion, normal respiratory effort. Abdomen: Soft, nondistended. Extremities: Palpable DP pulses. Right lower extremity with dressing clean dry and intact. Neurological: No focal deficits. Strength and sensation are grossly intact. - Labs CBC & Chem 7: 06/15/23 06:33 06/15/23 06:33 Labs: Abnormal Lab Results - Last 24 Hours (Table) 06/14/23 06/14/23 06/14/23 Range/Units 06:24 09:33 13:26 POC Glucose (mg/dL) 225 H 211 H (70-110) mg/dL Hemoglobin A1c 9.6 H (<=6.0) % 06/14/23 06/14/23 06/15/23 Range/Units 16:20 20:41 06:07 POC Glucose (mg/dL) 217 H 181 H 113 H (70-110) mg/dL Hemoglobin A1c (<=6.0) % Microbiology - Last 24 Hours (Table) 06/12/23 20:46 Blood Culture - Preliminary Blood Assessment and Plan Assessment: 1. Right lower extremity chronic nonhealing diabetic ulcer status post debridement and biopsy 2. Recent MRSA infection 3. Diabetes mellitus Plan: 1. Continue with recommendations from infectious disease 2. Continue local wound care per recommendations from wound care clinic Thank you for this consultation, patient is cleared from vascular surgery for discharge once otherwise medically cleared. We will sign off at this time. The impression and plan of care has been dictated as directed. Dr. Gandara I performed a history and examination of this patient, discussed the same with the dictator. I agree with the dictator's note ,documented as a scribe. Any additional findings or plans will be noted.
--- NOTE | 2023-06-15 13:13 | P.PN ---
Subjective Progress Note Date: 06/15/23 * 52-year-old gentleman with past medical history significant for diabetes mellitus, hypertension, wounds of right lower extremity presented to the ER because of worsening redness of right lower extremity. Patient stated he was discharged from the hospital after being treated with antibiotics for this right leg wound. Patient completed a round of antibiotics but pain and redness in right lower extremity continued to worsen. Patient is complaining of fevers. Was no complain of orthopnea or PND. No complaint of nausea, vomiting or pain. Denies any lethargy or weakness. Patient was seen by infectious disease and they recommended patient come into the hospital for evaluation * Initial lab work done in the ER showed WBC 8.8, hemoglobin 14.4, platelet count 228, sodium 137, potassium 4, BUN 33, creatinine 1.49, glucose 260 * x-ray right tibia-fibula showed mild generalized soft tissue swelling. wounds along both the medial and lateral aspect of the distal leg and ankle * Consultation obtained from infectious disease and vascular surgery * 06/14: Patient underwent sharp excisional debridement right lower extremity with surgery postoperative day 0 * 06/15: Patient seen and evaluated bedside, postoperative day 1, right lower extremity pain continues continue IV antibiotic on IV clindamycin follow-up on cultures Objective - Vital Signs Vital signs: Vital Signs Temp 97.6 F 06/15/23 06:45 Pulse 51 L 06/15/23 06:45 Resp 18 06/15/23 10:48 BP 138/91 06/15/23 06:45 Pulse Ox 97 06/15/23 06:45 FiO2 Intake & Output 06/14/23 06/15/23 06/15/23 18:59 06:59 18:59 Intake Total 700 Output Total 500 Balance 200 Weight 111.13 kg Intake: IV 700 Output: Urine 500 Other: # Voids 2 - Exam PHYSICAL EXAMINATION: GENERAL: The patient is alert and oriented x3, not in any acute distress. Well developed, well nourished. HEENT: Pupils are round and equally reacting to light. EOMI. No scleral icterus. No conjunctival pallor. Normocephalic, atraumatic. No pharyngeal erythema. No thyromegaly. CARDIOVASCULAR: S1 and S2 present. No murmurs, rubs, or gallops. PULMONARY: Chest is clear to auscultation, no wheezing or crackles. ABDOMEN: Soft, nontender, nondistended, normoactive bowel sounds. No palpable organomegaly. MUSCULOSKELETAL: No joint swelling or deformity. EXTREMITIES: Extremity wound bandaged post incision and debridement NEUROLOGICAL: Gross neurological examination did not reveal any focal deficits. SKIN: No rashes. - Labs CBC & Chem 7: 06/15/23 06:33 06/15/23 06:33 Labs: Abnormal Lab Results - Last 24 Hours (Table) 06/14/23 06/14/23 06/14/23 Range/Units 13:26 16:20 20:41 MCHC (32.0-37.0) d/dL BUN (9.0-27.0) mg/dL BUN/Creatinine Ratio (12.00-20.00) Ratio POC Glucose (mg/dL) 211 H 217 H 181 H (70-110) mg/dL 06/15/23 06/15/23 06/15/23 Range/Units 06:07 06:33 06:33 MCHC 31.8 L (32.0-37.0) d/dL BUN 27.1 H (9.0-27.0) mg/dL BUN/Creatinine Ratio 27.10 H (12.00-20.00) Ratio POC Glucose (mg/dL) 113 H (70-110) mg/dL 06/15/23 Range/Units 09:51 MCHC (32.0-37.0) d/dL BUN (9.0-27.0) mg/dL BUN/Creatinine Ratio (12.00-20.00) Ratio POC Glucose (mg/dL) 181 H (70-110) mg/dL Microbiology - Last 24 Hours (Table) 06/12/23 20:46 Blood Culture - Preliminary Blood Assessment and Plan Assessment: Assessment and plan Right lower extremity cellulitis Right lower extremity chronic nonhealing diabetic ulcer Hypertension Hyperlipidemia Diabetes mellitus * In regards to diabetic foot ulcer, consultation obtained from infectious disease and vascular surgery, status post excisional debridement * Continue patient on IV clindamycin, follow-up on blood cultures * Continue patient on amlodipine for history of hypertension, continue hydrochlorothiazide * In regards to diabetes mellitus Accu-Cheks before meals at bedtime continue patient on NovoLog, glipizide and correctional insulin * Patient noted to have episode of bradycardia , Coreg discontinued * Patient seen by wound care will need outpatient follow-up with wound care clinic
[2023-06-15 16:18] LABS: Glucose,Whole Blood 189 mg/dL (70-110)
--- NOTE | 2023-06-15 16:35 | P.PN ---
Subjective Progress Note Date: 06/14/23 Principal diagnosis: Right leg wound and cellulitis Patient is a 52-year-old male with a past medical history significant for diabetes mellitus reflux hypertension [place], patient did have a history of nonhealing wound to the right lower extremity with the patient has for couple of months now patient has been treated in the outpatient setting for cellulitis or wound infection culture positive for MRSA, hospital with worsening pain and drainage, the patient is status post surgical debridement biopsy and deep culture completed on 06/14/2023. on today's evaluation that is 06/14/2023, patient denies having any fever or chills, the patient is breathing comfortably, pain to the right lower leg currently controlled with pain medication no nausea no vomiting no abdominal pain or diarrhea. No blood draw today, blood cultures pending Objective - Vital Signs Vital signs: Vital Signs Temp 98.6 F 06/14/23 11:27 Pulse 49 L 06/14/23 12:12 Resp 15 06/14/23 12:12 BP 110/67 06/14/23 12:12 Pulse Ox 96 06/14/23 12:12 FiO2 Intake & Output 06/13/23 06/14/23 06/14/23 18:59 06:59 18:59 Intake Total 300 Balance 300 Weight 111.13 kg Intake: IV 300 Other: # Voids 2 - Exam GENERAL DESCRIPTION: A middle-aged male lying in bed in no distress RESPIRATORY SYSTEM: Unlabored breathing , decreased breath sounds at bases HEART: S1 S2 regular rate and rhythm , ABDOMEN: Soft , no tenderness EXTREMITIES: Right lower leg wound is currently dressed no drainage on the dressing - Labs CBC & Chem 7: 06/15/23 06:33 06/15/23 06:33 Labs: Abnormal Lab Results - Last 24 Hours (Table) 06/13/23 06/13/23 06/14/23 Range/Units 16:33 20:45 06:24 POC Glucose (mg/dL) 291 H 237 H (70-110) mg/dL Hemoglobin A1c 9.6 H (<=6.0) % 06/14/23 06/14/23 Range/Units 06:24 09:33 POC Glucose (mg/dL) 238 H 225 H (70-110) mg/dL Hemoglobin A1c (<=6.0) % Microbiology - Last 24 Hours (Table) 06/12/23 20:46 Blood Culture - Preliminary Blood Assessment and Plan (1) Cellulitis of right leg Current Visit: Yes Status: Acute Code(s): L03.115 - CELLULITIS OF RIGHT LOWER LIMB SNOMED Code(s): 131323333 (2) Ulcer of right lower leg Current Visit: Yes Status: Acute Code(s): L97.919 - NON-PRS CHRONIC ULC UNSP PRT OF R LOW LEG W UNSP SEVERITY SNOMED Code(s): 808195430 Plan: 1patient was in the hospital with a nonhealing wound to the right lower leg area that has been there for more than a month now outpatient culture positive for MRSA recently has been on oral doxycycline x-rays negative for any bony changes, with a nonhealing wound and significant pain but no fever elevated white count question of possible pyoderma gangrenosum. 2patient is status post surgical debridement deep culture as well as biopsy. 3vancomycin allergy through limit the number of antibiotics safe to use. 4patient to continue with the clindamycin while waiting for the cultures and work-up to be completed. Dictation was produced using [employer] dictation software. please excuse any grammatical, word or spelling errors. Time with Patient: Less than 30
--- NOTE | 2023-06-15 16:37 | P.PN ---
Subjective Progress Note Date: 06/15/23 Principal diagnosis: Right leg wound and cellulitis Patient is a 52-year-old male with a past medical history significant for diabetes mellitus reflux hypertension [place], patient did have a history of nonhealing wound to the right lower extremity with the patient has for couple of months now patient has been treated in the outpatient setting for cellulitis or wound infection culture positive for MRSA, hospital with worsening pain and drainage, the patient is status post surgical debridement biopsy and deep culture completed on 06/14/2023. on today's evaluation that is 06/15/2023, the patient denies having any fever or any chills, the patient is breathing comfortably, the patient denies having any chest pain, no nausea no vomiting no abdominal pain and no diarrhea , patient pain to the right lower extremity slightly decreased in intensity. Patient did have white count of 7.72 creatinine is 1.0 Objective - Vital Signs Vital signs: Vital Signs Temp 97.6 F 06/15/23 06:45 Pulse 51 L 06/15/23 06:45 Resp 18 06/15/23 10:48 BP 138/91 06/15/23 06:45 Pulse Ox 97 06/15/23 06:45 FiO2 Intake & Output 06/14/23 06/15/23 06/15/23 18:59 06:59 18:59 Intake Total 700 Output Total 500 Balance 200 Intake: IV 700 Output: Urine 500 Other: # Voids 2 - Exam GENERAL DESCRIPTION: A middle-aged male lying in bed in no distress RESPIRATORY SYSTEM: Unlabored breathing , decreased breath sounds at bases HEART: S1 S2 regular rate and rhythm , ABDOMEN: Soft , no tenderness EXTREMITIES: Right lower leg wound is currently dressed no drainage on the dressing - Labs CBC & Chem 7: 06/15/23 06:33 06/15/23 06:33 Labs: Abnormal Lab Results - Last 24 Hours (Table) 06/14/23 06/14/23 06/14/23 Range/Units 06:24 13:26 16:20 MCHC (32.0-37.0) d/dL BUN (9.0-27.0) mg/dL BUN/Creatinine Ratio (12.00-20.00) Ratio POC Glucose (mg/dL) 211 H 217 H (70-110) mg/dL Hemoglobin A1c 9.6 H (<=6.0) % 06/14/23 06/15/23 06/15/23 Range/Units 20:41 06:07 06:33 MCHC 31.8 L (32.0-37.0) d/dL BUN (9.0-27.0) mg/dL BUN/Creatinine Ratio (12.00-20.00) Ratio POC Glucose (mg/dL) 181 H 113 H (70-110) mg/dL Hemoglobin A1c (<=6.0) % 06/15/23 06/15/23 Range/Units 06:33 09:51 MCHC (32.0-37.0) d/dL BUN 27.1 H (9.0-27.0) mg/dL BUN/Creatinine Ratio 27.10 H (12.00-20.00) Ratio POC Glucose (mg/dL) 181 H (70-110) mg/dL Hemoglobin A1c (<=6.0) % Microbiology - Last 24 Hours (Table) 06/12/23 20:46 Blood Culture - Preliminary Blood Assessment and Plan (1) Cellulitis of right leg Current Visit: Yes Status: Acute Code(s): L03.115 - CELLULITIS OF RIGHT LOWER LIMB SNOMED Code(s): 709432544 (2) Ulcer of right lower leg Current Visit: Yes Status: Acute Code(s): L97.919 - NON-PRS CHRONIC ULC UNSP PRT OF R LOW LEG W UNSP SEVERITY SNOMED Code(s): 280164630 Plan: 1patient was in the hospital with a nonhealing wound to the right lower leg area that has been there for more than a month now outpatient culture positive for MRSA recently has been on oral doxycycline x-rays negative for any bony changes, with a nonhealing wound and significant pain but no fever elevated white count question of possible pyoderma gangrenosum. 2patient is status post surgical debridement deep culture as well as biopsy. Unfortunately culture has been last 3vancomycin allergy through limit the number of antibiotics safe to use. 4patient to continue with the clindamycin and will reevaluate the wound tomorrow at the time of dressing changes Dictation was produced using [employer] dictation software. please excuse any gra mmatical, word or spelling errors. Time with Patient: Less than 30
[2023-06-15 19:24] LABS: Glucose,Whole Blood 260 mg/dL (70-110)
[2023-06-15] MEDS: ATORVASTATIN 80 MG TAB PO SCH (21:16)
[2023-06-15] MEDS: amLODIPine 5 MG TAB PO SCH (21:16)
[2023-06-16] MEDS: HYDROmorphone 1 MG/ML 1 ML SYRINGE IVP PRN ×7 (03:05→21:15)
[2023-06-16 05:08] LABS: Glucose,Whole Blood 234 mg/dL (70-110)
[2023-06-16] MEDS: CLINDAMYCIN 600 MG in DEXTROSE 5% IN WATER 50 ML IVPB SCH ×4 (06:51→14:53)
[2023-06-16] MEDS: INSULIN ASPART (NovoLOG) 100 UNIT/ML VIAL SQ SCH ×7 (06:52→21:15)
[2023-06-16 08:22] LABS: HCT 44.3 % (39.0-53.0); HGB 13.8 gm/dL (13.0-17.5); MCH 27.6 pg (25.0-35.0); MCHC 31.2 g/dL (31.0-37.0); MCV 88.4 fL (80.0-100.0); Mean Platelet Volume 8.7; Platelet Count 199 k/uL (150-450); RBC 5.01 m/uL (4.30-5.90); RDW 14.2 % (11.5-15.5); WBC 8.1 k/uL (3.8-10.6)
[2023-06-16] MEDS: glipiZIDE 10 MG TAB PO SCH ×2 (09:05→21:17)
[2023-06-16] MEDS: ASPIRIN 81 MG PO SCH (09:05)
[2023-06-16] MEDS: hydrALAZINE HCL 50 MG TAB PO SCH ×2 (09:05→21:17)
[2023-06-16] MEDS: CLOPIDOGREL 75 MG TAB PO SCH (09:05)
[2023-06-16] MEDS: TRIAMTERENE-HCTZ 37.5-25MG 1 EACH TAB PO SCH (09:05)
[2023-06-16] MEDS: LOSARTAN 50 MG TAB PO SCH (09:05)
[2023-06-16 09:24] LABS: African American GFR (CKD) >90 (>60 ml/min/1.73 sqM); Anion Gap 6 mmol/L; Blood Urea Nitrogen 22 mg/dL (9-20); C Reactive Protein <0.5 mg/dL (<1.0); Calcium 9.2 mg/dL (8.4-10.2); Carbon Dioxide 30 mmol/L (22-30); Chloride 101 mmol/L (98-107); Glucose 212 mg/dL (74-99); Non-African American GFR(CKD) >90 (>60 ml/min/1.73 sqM); Potassium 3.7 mmol/L (3.5-5.1); Sodium 137 mmol/L (137-145)
[2023-06-16] MEDS: INSULN ASP PRT/INSULIN ASPART 100 UNIT/ML 10 ML VIAL SQ SCH ×2 (10:14→21:16)
[2023-06-16 11:47] LABS: Glucose,Whole Blood 194 mg/dL (70-110)
--- NOTE | 2023-06-16 12:44 | P.PN ---
Subjective Progress Note Date: 06/16/23 * 52-year-old gentleman with past medical history significant for diabetes mellitus, hypertension, wounds of right lower extremity presented to the ER because of worsening redness of right lower extremity. Patient stated he was discharged from the hospital after being treated with antibiotics for this right leg wound. Patient completed a round of antibiotics but pain and redness in right lower extremity continued to worsen. Patient is complaining of fevers. Was no complain of orthopnea or PND. No complaint of nausea, vomiting or pain. Denies any lethargy or weakness. Patient was seen by infectious disease and they recommended patient come into the hospital for evaluation * Initial lab work done in the ER showed WBC 8.8, hemoglobin 14.4, platelet count 228, sodium 137, potassium 4, BUN 33, creatinine 1.49, glucose 260 * x-ray right tibia-fibula showed mild generalized soft tissue swelling. wounds along both the medial and lateral aspect of the distal leg and ankle * Consultation obtained from infectious disease and vascular surgery * 06/14: Patient underwent sharp excisional debridement right lower extremity with surgery postoperative day 0 * 06/15: Patient seen and evaluated bedside, postoperative day 1, right lower extremity pain continues continue IV antibiotic on IV clindamycin follow-up on cultures * 06/16: Patient seen and everted bedside, patient continued to have severe discomfort and right lower extremity. Medical record reviewed patient had a negative venous Doppler for DVT on 05/14. Patient had an x-ray done of right lower extremity on 06/12. CT right lower extremity ordered to evaluate for deep tissue infection and no cellulitis Objective - Vital Signs Vital signs: Vital Signs Temp 98.3 F 06/16/23 07:20 Pulse 59 L 06/16/23 07:20 Resp 18 06/16/23 07:20 BP 161/98 06/16/23 07:20 Pulse Ox 98 06/16/23 07:20 FiO2 Intake & Output 06/15/23 06/16/23 06/16/23 18:59 06:59 18:59 Intake Total 200 Balance 200 Weight 111.13 kg Intake: Oral 200 Other: Voiding Method Toilet # Voids 2 0 - Exam PHYSICAL EXAMINATION: GENERAL: The patient is alert and oriented x3, not in any acute distress. Well developed, well nourished. HEENT: Pupils are round and equally reacting to light. EOMI. No scleral icterus. No conjunctival pallor. Normocephalic, atraumatic. No pharyngeal erythema. No thyromegaly. CARDIOVASCULAR: S1 and S2 present. No murmurs, rubs, or gallops. PULMONARY: Chest is clear to auscultation, no wheezing or crackles. ABDOMEN: Soft, nontender, nondistended, normoactive bowel sounds. No palpable organomegaly. MUSCULOSKELETAL: No joint swelling or deformity. EXTREMITIES: Extremity wound bandaged post incision and debridement NEUROLOGICAL: Gross neurological examination did not reveal any focal deficits. SKIN: No rashes. - Labs CBC & Chem 7: 06/16/23 06:38 06/16/23 06:38 Labs: Abnormal Lab Results - Last 24 Hours (Table) 06/15/23 06/15/23 06/16/23 Range/Units 16:16 19:22 05:06 BUN (9-20) mg/dL Glucose (74-99) mg/dL POC Glucose (mg/dL) 189 H 260 H 234 H (70-110) mg/dL 06/16/23 06/16/23 Range/Units 06:38 11:45 BUN 22 H (9-20) mg/dL Glucose 212 H (74-99) mg/dL POC Glucose (mg/dL) 194 H (70-110) mg/dL Microbiology - Last 24 Hours (Table) 06/12/23 20:46 Blood Culture - Preliminary Blood Assessment and Plan Assessment: Assessment and plan Right lower extremity cellulitis recurrent failed outpatient treatment Right lower extremity chronic nonhealing diabetic ulcer Hypertension Hyperlipidemia Diabetes mellitus * In regards to diabetic foot ulcer, consultation obtained from infectious disease and vascular surgery, status post excisional debridement * Continue patient on IV clindamycin, follow-up on blood cultures no growth>> CT right lower extremity ordered secondary to worsening pain, CRP negative * Continue patient on amlodipine for history of hypertension, continue hydrochlorothiazide * In regards to diabetes mellitus Accu-Cheks before meals at bedtime continue patient on NovoLog, glipizide and correctional insulin * Patient noted to have episode of bradycardia , Coreg discontinued * Patient seen by wound care will need outpatient follow-up with wound care clinic
[2023-06-16 16:12] LABS: Glucose,Whole Blood 185 mg/dL (70-110)
--- NOTE | 2023-06-16 16:38 | CT ---
EXAMINATION TYPE: CT lower extremity RT w con DATE OF EXAM: 06/16/2023 COMPARISON: None HISTORY: right leg swelling cellulitis CT DLP: 279.9 mGycm Automated exposure control for dose reduction was used. Contrast: None Technique: Axial images 2 mm thick sections. Reconstructed images in the coronal and sagittal planes. FINDINGS: Osseous structures appear intact. No acute fractures are evident. No suspicious cortical erosions are evident. No joint effusion is evident. Muscular density appears normal. There is little fat present within the lower extremity. Some mild increased density within the subcutaneous tissues may be at the level of the proximal ankle. Findings could be compatible cellulitis. There is some soft tissue change in the lateral proximal ankle. No underlying cortical abnormality is evident. IMPRESSION: 1. SOFT TISSUE WOUND CHANGES LATERAL DISTAL FORELEG. NO UNDERLYING OSSEOUS ABNORMALITY IS EVIDENT. 2. MILD CELLULITIS MAY BE PRESENT PROXIMAL ANKLE.
[2023-06-16] MEDS: COLLAGENASE 250 UNIT/GM OINTMENT 30 GM TUBE TOPICAL SCH (17:03)
--- NOTE | 2023-06-16 17:42 | P.PN ---
Subjective Progress Note Date: 06/16/23 Principal diagnosis: Right leg wound and cellulitis Patient is a 52-year-old male with a past medical history significant for diabetes mellitus reflux hypertension [place], patient did have a history of nonhealing wound to the right lower extremity with the patient has for couple of months now patient has been treated in the outpatient setting for cellulitis or wound infection culture positive for MRSA, hospital with worsening pain and drainage, the patient is status post surgical debridement biopsy and deep culture completed on 06/14/2023. on today's evaluation that is 06/16/2023, the patient remains to be afebrile, the patient is breathing comfortably, the patient denies chest pain shortness of breath or cough, no nausea no vomiting no abdominal pain and no diarrhea has been reported. Still complaining of pain to the right lower extremity wound area Patient did have white count of 8.1 creatinine is 0.86 Objective - Vital Signs Vital signs: Vital Signs Temp 98.4 F 06/16/23 14:00 Pulse 74 06/16/23 14:00 Resp 16 06/16/23 14:00 BP 155/106 06/16/23 14:00 Pulse Ox 97 06/16/23 14:00 FiO2 Intake & Output 06/15/23 06/16/23 06/16/23 18:59 06:59 18:59 Intake Total 200 Balance 200 Weight 111.13 kg Intake: Oral 200 Other: Voiding Method Toilet # Voids 2 0 - Exam GENERAL DESCRIPTION: A middle-aged male lying in bed in no distress RESPIRATORY SYSTEM: Unlabored breathing , decreased breath sounds at bases HEART: S1 S2 regular rate and rhythm , ABDOMEN: Soft , no tenderness EXTREMITIES: Right lower leg wound bases with minimal slough surrounding maceration tender to touch - Labs CBC & Chem 7: 06/16/23 06:38 06/16/23 06:38 Labs: Abnormal Lab Results - Last 24 Hours (Table) 06/15/23 06/15/23 06/16/23 Range/Units 16:16 19:22 05:06 BUN (9-20) mg/dL Glucose (74-99) mg/dL POC Glucose (mg/dL) 189 H 260 H 234 H (70-110) mg/dL 06/16/23 06/16/23 Range/Units 06:38 11:45 BUN 22 H (9-20) mg/dL Glucose 212 H (74-99) mg/dL POC Glucose (mg/dL) 194 H (70-110) mg/dL Microbiology - Last 24 Hours (Table) 06/12/23 20:46 Blood Culture - Preliminary Blood Assessment and Plan (1) Cellulitis of right leg Current Visit: Yes Status: Acute Code(s): L03.115 - CELLULITIS OF RIGHT LOWER LIMB SNOMED Code(s): 872031720 (2) Ulcer of right lower leg Current Visit: Yes Status: Acute Code(s): L97.919 - NON-PRS CHRONIC ULC UNSP PRT OF R LOW LEG W UNSP SEVERITY SNOMED Code(s): 965720853 Plan: 1patient was in the hospital with a nonhealing wound to the right lower leg area that has been there for more than a month now outpatient culture positive for MRSA recently has been on oral doxycycline x-rays negative for any bony changes, with a nonhealing wound and significant pain but no fever elevated white count question of possible pyoderma gangrenosum. 2patient is status post surgical debridement deep culture as well as biopsy. Unfortunately culture has been last 3vancomycin allergy through limit the number of antibiotics safe to use. 4 local wound culture had been obtained to guide further antibiotic therapy and we'll switch him over to daptomycin, await CT of the left lower extremity though clinically doubt abscess or deeper infection Dictation was produced using [employer] software. please excuse any grammatical, word or spelling errors.
[2023-06-16 19:54] LABS: Glucose,Whole Blood 270 mg/dL (70-110)
[2023-06-16] MEDS: amLODIPine 5 MG TAB PO SCH (21:17)
[2023-06-17] MEDS: HYDROmorphone 1 MG/ML 1 ML SYRINGE IVP PRN ×8 (02:28→23:29)
[2023-06-17 05:35] LABS: Glucose,Whole Blood 237 mg/dL (70-110)
[2023-06-17] MEDS: INSULIN ASPART (NovoLOG) 100 UNIT/ML VIAL SQ SCH ×7 (06:38→23:30)
[2023-06-17] MEDS: LOSARTAN 50 MG TAB PO SCH (08:33)
[2023-06-17] MEDS: ASPIRIN 81 MG PO SCH (08:34)
[2023-06-17] MEDS: CLOPIDOGREL 75 MG TAB PO SCH (08:34)
[2023-06-17] MEDS: glipiZIDE 10 MG TAB PO SCH ×2 (08:34→20:05)
[2023-06-17] MEDS: hydrALAZINE HCL 50 MG TAB PO SCH ×2 (08:34→20:05)
[2023-06-17] MEDS: TRIAMTERENE-HCTZ 37.5-25MG 1 EACH TAB PO SCH (08:34)
[2023-06-17] MEDS: COLLAGENASE 250 UNIT/GM OINTMENT 30 GM TUBE TOPICAL SCH (08:34)
[2023-06-17] MEDS: INSULN ASP PRT/INSULIN ASPART 100 UNIT/ML 10 ML VIAL SQ SCH ×2 (08:45→23:30)
[2023-06-17 09:26] LABS: HCT 42.3 % (39.6-50.0); HGB 13.8 d/dL (13.0-17.0); MCH 27.9 pg (27.0-32.0); MCHC 32.6 d/dL (32.0-37.0); MCV 85.6 FL (80.0-97.0); Mean Platelet Volume 11.2 FL (9.5-12.2); NRBC Per 100 WBC 0 X 10*3/uL (0.00-0.01); Platelet Count 203 X 10*3/uL (140-440); RBC 4.94 X 10*6/uL (4.40-5.60); RDW 13.9 % (11.5-14.5); WBC 7.46 X 10*3/uL (4.50-10.00)
[2023-06-17 09:42] LABS: BUN/Creat Ratio 16.78 Ratio (12.00-20.00); Blood Urea Nitrogen 15.1 mg/dL (9.0-27.0); Calcium 9.1 mg/dL (8.7-10.3); Chloride 102 mmol/L (96-109); Glucose 220 mg/dL (70-110); Potassium 3.7 mmol/L (3.5-5.5); Sodium 139 mmol/L (135-145)
[2023-06-17 11:50] LABS: Glucose,Whole Blood 197 mg/dL (70-110)
--- NOTE | 2023-06-17 11:54 | P.PN ---
Subjective Progress Note Date: 06/17/23 * 52-year-old gentleman with past medical history significant for diabetes mellitus, hypertension, wounds of right lower extremity presented to the ER because of worsening redness of right lower extremity. Patient stated he was discharged from the hospital after being treated with antibiotics for this right leg wound. Patient completed a round of antibiotics but pain and redness in right lower extremity continued to worsen. Patient is complaining of fevers. Was no complain of orthopnea or PND. No complaint of nausea, vomiting or pain. Denies any lethargy or weakness. Patient was seen by infectious disease and they recommended patient come into the hospital for evaluation * Initial lab work done in the ER showed WBC 8.8, hemoglobin 14.4, platelet count 228, sodium 137, potassium 4, BUN 33, creatinine 1.49, glucose 260 * x-ray right tibia-fibula showed mild generalized soft tissue swelling. wounds along both the medial and lateral aspect of the distal leg and ankle * Consultation obtained from infectious disease and vascular surgery * 06/14: Patient underwent sharp excisional debridement right lower extremity with surgery postoperative day 0 * 06/15: Patient seen and evaluated bedside, postoperative day 1, right lower extremity pain continues continue IV antibiotic on IV clindamycin follow-up on cultures * 06/16: Patient seen and everted bedside, patient continued to have severe discomfort and right lower extremity. Medical record reviewed patient had a negative venous Doppler for DVT on 05/14.Patient had an x-ray done of right lower extremity on 06/12. CT right lower extremity ordered to evaluate for deep tissue infection and no cellulitis * 06/17: Patient seen and evaluated bedside. CT right lower extremity findings discussed, no deep tissue infection noted no osteomyelitis noted. Continue on IV daptomycin Objective - Vital Signs Vital signs: Vital Signs Temp 98.1 F 06/16/23 19:30 Pulse 73 06/16/23 19:30 Resp 18 06/16/23 19:30 BP 153/96 06/16/23 19:30 Pulse Ox 94 L 06/16/23 19:30 FiO2 Intake & Output 06/16/23 06/16/23 06/17/23 06:59 18:59 06:59 Other: Voiding Method Toilet # Voids 0 2 - Exam PHYSICAL EXAMINATION: GENERAL: The patient is alert and oriented x3, not in any acute distress. Well developed, well nourished. HEENT: Pupils are round and equally reacting to light. EOMI. No scleral icterus. No conjunctival pallor. Normocephalic, atraumatic. No pharyngeal erythema. No thyromegaly. CARDIOVASCULAR: S1 and S2 present. No murmurs, rubs, or gallops. PULMONARY: Chest is clear to auscultation, no wheezing or crackles. ABDOMEN: Soft, nontender, nondistended, normoactive bowel sounds. No palpable organomegaly. MUSCULOSKELETAL: No joint swelling or deformity. EXTREMITIES: Extremity wound bandaged post incision and debridement NEUROLOGICAL: Gross neurological examination did not reveal any focal deficits. SKIN: No rashes. - Labs CBC & Chem 7: 06/17/23 06:17 06/17/23 06:17 Labs: Abnormal Lab Results - Last 24 Hours (Table) 06/16/23 06/16/23 06/16/23 Range/Units 05:06 06:38 11:45 BUN 22 H (9-20) mg/dL Glucose 212 H (74-99) mg/dL POC Glucose (mg/dL) 234 H 194 H (70-110) mg/dL 06/16/23 06/16/23 Range/Units 16:11 19:53 BUN (9-20) mg/dL Glucose (74-99) mg/dL POC Glucose (mg/dL) 185 H 270 H (70-110) mg/dL Microbiology - Last 24 Hours (Table) 06/12/23 20:46 Blood Culture - Preliminary Blood Assessment and Plan Assessment: Assessment and plan Right lower extremity cellulitis recurrent failed outpatient treatment MRSA Wound infection Right lower extremity chronic nonhealing diabetic ulcer Hypertension Hyperlipidemia Diabetes mellitus * In regards to diabetic foot ulcer, consultation obtained from infectious disease and vascular surgery, status post excisional debridement * In regards to Cellulitis >> patient was on IV clindamycin, swicthed to Daptomycn by ID >> follow-up on blood cultures no growth>> CT right lower extr emity Negative for abcess and osteomyelitis * Continue patient on amlodipine for history of hypertension, continue hydrochlorothiazide * In regards to diabetes mellitus Accu-Cheks before meals at bedtime continue patient on NovoLog, glipizide and correctional insulin * Patient noted to have episode of bradycardia , Coreg discontinued, if heart rate remained stable can resume Coreg * Patient seen by wound care will need outpatient follow-up with wound care clinic
[2023-06-17] MEDS: oxyCODONE-APAP 10-325MG 1 EACH TAB PO PRN (13:22)
[2023-06-17 17:02] LABS: Glucose,Whole Blood 192 mg/dL (70-110)
--- NOTE | 2023-06-17 17:41 | P.PN ---
"Subjective Progress Note Date: 06/17/23 Principal diagnosis: Right leg wound and cellulitis Patient is a 52-year-old male with a past medical history significant for diabetes mellitus reflux hypertension [place], patient did have a history of nonhealing wound to the right lower extremity with the patient has for couple of months now patient has been treated in the outpatient setting for cellulitis or wound infection culture positive for MRSA, hospital with worsening pain and drainage, the patient is status post surgical debridement biopsy and deep culture completed on 06/14/2023. on today's evaluation that is 06/17/2023, the patient continues to be afebrile, the patient is breathing comfortably and denies any shortness of breath no chest pain or cough, the patient denies having any nausea and vomiting no abdominal pain and no diarrhea, patient is recommended to obtain the right lateral leg wound area especially with the Aquacel silver dressing change Patient did have white count of 7.46 creatinine is 0.9 Objective - Vital Signs Vital signs: Vital Signs Temp 97.7 F 06/17/23 08:00 Pulse 50 L 06/17/23 08:00 Resp 17 06/17/23 08:00 BP 165/97 06/17/23 08:00 Pulse Ox 97 06/17/23 08:00 FiO2 Intake & Output 06/16/23 06/17/23 06/17/23 18:59 06:59 18:59 Other: Voiding Method Toilet Toilet # Voids 2 0 - Exam GENERAL DESCRIPTION: A middle-aged male lying in bed in no distress RESPIRATORY SYSTEM: Unlabored breathing , decreased breath sounds at bases HEART: S1 S2 regular rate and rhythm , ABDOMEN: Soft , no tenderness EXTREMITIES: Right lower leg wound bases with minimal slough surrounding maceration tender to touch - Labs CBC & Chem 7: 06/17/23 06:17 06/17/23 06:17 Labs: Abnormal Lab Results - Last 24 Hours (Table) 06/16/23 06/16/23 06/17/23 Range/Units 16:11 19:53 05:34 Glucose (70-110) mg/dL POC Glucose (mg/dL) 185 H 270 H 237 H (70-110) mg/dL 06/17/23 06/17/23 Range/Units 06:17 11:48 Glucose 220 H (70-110) mg/dL POC Glucose (mg/dL) 197 H (70-110) mg/dL Microbiology - Last 24 Hours (Table) 06/16/23 16:00 Gram Stain - Preliminary Foot - Right Assessment and Plan (1) Cellulitis of right leg Current Visit: Yes Status: Acute Code(s): L03.115 - CELLULITIS OF RIGHT LOWER LIMB SNOMED Code(s): 661812346 (2) Ulcer of right lower leg Current Visit: Yes Status: Acute Code(s): L97.919 - NON-PRS CHRONIC ULC UNSP PRT OF R LOW LEG W UNSP SEVERITY SNOMED Code(s): 448711422 Plan: 1patient was in the hospital with a nonhealing wound to the right lower leg area that has been there for more than a month now outpatient culture positive for MRSA recently has been on oral doxycycline x-rays negative for any bony changes, with a nonhealing wound and significant pain but no fever elevated white count question of possible pyoderma gangrenosum. 2patient is status post surgical debridement deep culture as well as biopsy. Unfortunately culture has been last 3vancomycin allergy that will limit the number of antibiotics safe to use. 4 local wound culture had been obtained and are currently pending, patient did have a CT of the left leg that was negative for any abscess 5patient to continue with daptomycin while waiting for the culture finalized to determine his discharge antibiotics Dictation was produced using [employer] dictation software. please excuse any grammatical, word or spelling errors. Time with Patient: Less than 30"
[2023-06-17] MEDS: amLODIPine 5 MG TAB PO SCH (20:05)
[2023-06-17 21:55] LABS: Glucose,Whole Blood 332 mg/dL (70-110)
[2023-06-18] MEDS: oxyCODONE-APAP 10-325MG 1 EACH TAB PO PRN ×4 (00:46→22:12)
[2023-06-18] MEDS: HYDROmorphone 1 MG/ML 1 ML SYRINGE IVP PRN ×9 (02:05→23:13)
[2023-06-18 06:13] LABS: Glucose,Whole Blood 234 mg/dL (70-110)
[2023-06-18] MEDS: INSULIN ASPART (NovoLOG) 100 UNIT/ML VIAL SQ SCH ×7 (06:48→21:13)
[2023-06-18] MEDS: ASPIRIN 81 MG PO SCH (07:48)
[2023-06-18] MEDS: CLOPIDOGREL 75 MG TAB PO SCH (07:48)
[2023-06-18] MEDS: glipiZIDE 10 MG TAB PO SCH ×2 (07:48→21:13)
[2023-06-18] MEDS: LOSARTAN 50 MG TAB PO SCH (07:48)
[2023-06-18] MEDS: hydrALAZINE HCL 50 MG TAB PO SCH ×3 (07:49→21:13)
[2023-06-18] MEDS: TRIAMTERENE-HCTZ 37.5-25MG 1 EACH TAB PO SCH (07:49)
[2023-06-18] MEDS: INSULN ASP PRT/INSULIN ASPART 100 UNIT/ML 10 ML VIAL SQ SCH ×2 (07:52→21:35)
[2023-06-18 10:54] LABS: HCT 45.2 % (39.6-50.0); HGB 14.1 d/dL (13.0-17.0); MCH 26.9 pg (27.0-32.0); MCHC 31.2 d/dL (32.0-37.0); MCV 86.3 FL (80.0-97.0); Mean Platelet Volume 11.3 FL (9.5-12.2); NRBC Per 100 WBC 0 X 10*3/uL (0.00-0.01); Platelet Count 204 X 10*3/uL (140-440); RBC 5.24 X 10*6/uL (4.40-5.60); WBC 9.16 X 10*3/uL (4.50-10.00)
[2023-06-18 11:11] LABS: Blood Urea Nitrogen 16.4 mg/dL (9.0-27.0); Calcium 9.1 mg/dL (8.7-10.3); Carbon Dioxide 26.9 mmol/L (21.6-31.8); Chloride 100 mmol/L (96-109); Glucose 232 mg/dL (70-110); Potassium 3.7 mmol/L (3.5-5.5); Sodium 137 mmol/L (135-145)
[2023-06-18 11:12] LABS: Glucose,Whole Blood 254 mg/dL (70-110)
[2023-06-18] MEDS: COLLAGENASE 250 UNIT/GM OINTMENT 30 GM TUBE TOPICAL SCH (12:59)
--- NOTE | 2023-06-18 13:34 | P.PN ---
Subjective Progress Note Date: 06/18/23 52-year-old gentleman with past medical history significant for diabetes mellitus, hypertension, wounds of right lower extremity presented to the ER because of worsening redness of right lower extremity. Patient stated he was discharged from the hospital after being treated with antibiotics for this right leg wound. Patient completed a round of antibiotics but pain and redness in ri ght lower extremity continued to worsen. Patient is complaining of fevers. Was no complain of orthopnea or PND. No complaint of nausea, vomiting or pain. Denies any lethargy or weakness. Patient was seen by infectious disease and they recommended patient come into the hospital for evaluation * Initial lab work done in the ER showed WBC 8.8, hemoglobin 14.4, platelet count 228, sodium 137, potassium 4, BUN 33, creatinine 1.49, glucose 260 * x-ray right tibia-fibula showed mild generalized soft tissue swelling. wounds along both the medial and lateral aspect of the distal leg and ankle * Consultation obtained from infectious disease and vascular surgery * 06/14: Patient underwent sharp excisional debridement right lower extremity with surgery postoperative day 0 * 06/15: Patient seen and evaluated bedside, postoperative day 1, right lower extremity pain continues continue IV antibiotic on IV clindamycin follow-up on cultures * 06/16: Patient seen and everted bedside, patient continued to have severe discomfort and right lower extremity. Medical record reviewed patient had a negative venous Doppler for DVT on 05/14.Patient had an x-ray done of right lower extremity on 06/12. CT right lower extremity ordered to evaluate for deep tissue infection and no cellulitis * 06/17: Patient seen and evaluated bedside. CT right lower extremity findings discussed, no deep tissue infection noted no osteomyelitis noted. Continue on IV daptomycin 06/18. Patient seen and examined. Complaining of a lot of pain in his right leg. Change patient oral Percocet to every 4 hourly and adjusted patient IV Dilaudid. REVIEW OF SYSTEMS: CONSTITUTIONAL: No fever, no malaise,. CARDIOVASCULAR: No chest pain, no palpitations, no syncope. PULMONARY: No shortness of breath, no cough, GASTROINTESTINAL: No diarrhea, no nausea, no vomiting, no abdominal pain. NEUROLOGICAL: No headaches, no weakness, PHYSICAL EXAMINATION: GENERAL: The patient is alert and oriented x3, not in any acute distress. Well developed, well nourished. HEENT: Pupils are round and equally reacting to light. EOMI. No scleral icterus. No conjunctival pallor. Normocephalic, atraumatic. No pharyngeal erythema. No thyromegaly. CARDIOVASCULAR: S1 and S2 present. No murmurs, rubs, or gallops. PULMONARY: Chest is clear to auscultation, no wheezing or crackles. ABDOMEN: Soft, nontender, nondistended, normoactive bowel sounds. No palpable organomegaly. MUSCULOSKELETAL: Right calf ulcers seen EXTREMITIES: No cyanosis, clubbing, or pedal edema. NEUROLOGICAL: Gross neurological examination did not reveal any focal deficits. SKIN: No rashes. Assessment and plan Right lower extremity cellulitis recurrent failed outpatient treatment MRSA Wound infection Right lower extremity chronic nonhealing diabetic ulcer Hypertension Hyperlipidemia Diabetes mellitus Monitor vital signs Monitor CBC Monitor CMP Continue telemetry monitoring In regards to diabetic foot ulcer, consultation obtained from infectious disease and vascular surgery, status post excisional debridement Continue daptomycin ID following Continue pain management Continue patient on amlodipine for history of hypertension, continue hydrochlorothiazide In regards to diabetes mellitus Accu-Cheks before meals at bedtime continue patient on NovoLog, glipizide and correctional insulin Labs and medication were reviewed.. Continue same treatment. Continue with symptomatic treatment. Resume home medication. Monitor labs and vitals. DVT and GI prophylaxis. Further recommendations as per clinical course of the patient Dictation was produced using [facility] [facility] dictation software. please excuse any grammatical, word or spelling errors. Objective - Vital Signs Vital signs: Vital Signs Temp 98.0 F 06/18/23 07:24 Pulse 70 06/18/23 07:24 Resp 17 06/18/23 07:24 BP 176/103 06/18/23 07:24 Pulse Ox 99 06/18/23 07:24 FiO2 Intake & Output 06/17/23 06/18/23 06/18/23 18:59 06:59 18:59 Other: Voiding Method Toilet Toilet # Voids 2 2 - Labs CBC & Chem 7: 06/18/23 06:38 06/18/23 06:38 Labs: Abnormal Lab Results - Last 24 Hours (Table) 06/17/23 06/17/23 06/17/23 Range/Units 11:48 17:01 21:54 POC Glucose (mg/dL) 197 H 192 H 332 H (70-110) mg/dL 06/18/23 Range/Units 06:12 POC Glucose (mg/dL) 234 H (70-110) mg/dL Microbiology - Last 24 Hours (Table) 06/12/23 20:46 Blood Culture - Final Blood 06/16/23 16:00 Gram Stain - Preliminary Foot - Right Wound Culture - Preliminary
[2023-06-18 16:14] LABS: Glucose,Whole Blood 256 mg/dL (70-110)
--- NOTE | 2023-06-18 17:51 | P.PN ---
Subjective Progress Note Date: 06/18/23 Principal diagnosis: Right leg wound and cellulitis Patient is a 52-year-old male with a past medical history significant for diabetes mellitus reflux hypertension [place], patient did have a history of nonhealing wound to the right lower extremity with the patient has for couple of months now patient has been treated in the outpatient setting for cellulitis or wound infection culture positive for MRSA, hospital with worsening pain and drainage, the patient is status post surgical debridement biopsy and deep culture completed on 06/14/2023. on today's evaluation that is 06/18/2023, the patient remains to be afebrile, the patient is breathing comfortably , the patient denies having any chest pain or cough, the patient denies nausea and vomiting no abdominal pain and no diarrhea, patient continues to be complaining of the right lateral leg wound area especially with the dressing change Patient did have white count of 9.16 creatinine is 1.0, blood culture negative CT was negative for any abscess local cultures pending Objective - Vital Signs Vital signs: Vital Signs Temp 98.0 F 06/18/23 07:24 Pulse 70 06/18/23 07:24 Resp 17 06/18/23 07:24 BP 176/103 06/18/23 07:24 Pulse Ox 99 06/18/23 07:24 FiO2 Intake & Output 06/17/23 06/18/23 06/18/23 18:59 06:59 18:59 Other: Voiding Method Toilet Toilet # Voids 2 2 - Exam GENERAL DESCRIPTION: A middle-aged male lying in bed in no distress RESPIRATORY SYSTEM: Unlabored breathing , decreased breath sounds at bases HEART: S1 S2 regular rate and rhythm , ABDOMEN: Soft , no tenderness EXTREMITIES: Right lower leg wound bases with no slough tissue surrounding maceration has improved - Labs CBC & Chem 7: 06/18/23 06:38 06/18/23 06:38 Labs: Abnormal Lab Results - Last 24 Hours (Table) 06/17/23 06/17/23 06/17/23 Range/Units 11:48 17:01 21:54 POC Glucose (mg/dL) 197 H 192 H 332 H (70-110) mg/dL 06/18/23 Range/Units 06:12 POC Glucose (mg/dL) 234 H (70-110) mg/dL Microbiology - Last 24 Hours (Table) 06/12/23 20:46 Blood Culture - Final Blood 06/16/23 16:00 Gram Stain - Preliminary Foot - Right Wound Culture - Preliminary Assessment and Plan (1) Cellulitis of right leg Current Visit: Yes Status: Acute Code(s): L03.115 - CELLULITIS OF RIGHT LOWER LIMB SNOMED Code(s): 810761120 (2) Ulcer of right lower leg Current Visit: Yes Status: Acute Code(s): L97.919 - NON-PRS CHRONIC ULC UNSP PRT OF R LOW LEG W UNSP SEVERITY SNOMED Code(s): 191037372 Plan: 1patient was in the hospital with a nonhealing wound to the right lower leg area that has been there for more than a month now outpatient culture positive for MRSA recently has been on oral doxycycline x-rays negative for any bony changes, with a nonhealing wound and significant pain but no fever elevated white count question of possible pyoderma gangrenosum. 2patient is status post surgical debridement deep culture as well as biopsy. Biopsy shows possible cellulitis and no other diagnosis 3vancomycin allergy that will limit the number of antibiotics safe to use. 4 local wound culture had been obtained and are currently pending, patient did have a CT of the left leg that was negative for any abscess 5patient to continue with daptomycin while waiting for the culture finalized, currently refusing Aquacel silver dressing local care will be switched back to Santyl and monitor clinical course closely he did have multiple questions and concerns has been answered in Layman terms Dictation was produced using [employer] dictation software. please excuse any gr ammatical, word or spelling errors. Time with Patient: Less than 30
[2023-06-18 21:04] LABS: Glucose,Whole Blood 352 mg/dL (70-110)
[2023-06-18] MEDS: amLODIPine 5 MG TAB PO SCH (21:13)
[2023-06-19] MEDS: HYDROmorphone 1 MG/ML 1 ML SYRINGE IVP PRN ×7 (01:35→21:28)
[2023-06-19 06:16] LABS: Glucose,Whole Blood 216 mg/dL (70-110)
[2023-06-19] MEDS: INSULIN ASPART (NovoLOG) 100 UNIT/ML VIAL SQ SCH ×7 (07:19→21:27)
[2023-06-19] MEDS: CLOPIDOGREL 75 MG TAB PO SCH (09:38)
[2023-06-19] MEDS: glipiZIDE 10 MG TAB PO SCH ×2 (09:38→21:27)
[2023-06-19] MEDS: LOSARTAN 50 MG TAB PO SCH (09:39)
[2023-06-19] MEDS: INSULN ASP PRT/INSULIN ASPART 100 UNIT/ML 10 ML VIAL SQ SCH ×2 (09:47→21:26)
[2023-06-19] MEDS: hydrALAZINE HCL 50 MG TAB PO SCH ×3 (09:47→21:27)
[2023-06-19] MEDS: ASPIRIN 81 MG PO SCH (09:47)
[2023-06-19] MEDS: COLLAGENASE 250 UNIT/GM OINTMENT 30 GM TUBE TOPICAL SCH (09:47)
[2023-06-19] MEDS: TRIAMTERENE-HCTZ 37.5-25MG 1 EACH TAB PO SCH (09:51)
[2023-06-19] MEDS: oxyCODONE-APAP 10-325MG 1 EACH TAB PO PRN ×3 (11:08→23:51)
[2023-06-19 11:10] LABS: Glucose,Whole Blood 224 mg/dL (70-110)
--- NOTE | 2023-06-19 12:24 | P.PN ---
Subjective Progress Note Date: 06/19/23 * 52-year-old gentleman with past medical history significant for diabetes mellitus, hypertension, wounds of right lower extremity presented to the ER because of worsening redness of right lower extremity. Patient stated he was discharged from the hospital after being treated with antibiotics for this right leg wound. Patient completed a round of antibiotics but pain and redness in right lower extremity continued to worsen. Patient is complaining of fevers. Was no complain of orthopnea or PND. No complaint of nausea, vomiting or pain. Denies any lethargy or weakness. Patient was seen by infectious disease and they recommended patient come into the hospital for evaluation * Initial lab work done in the ER showed WBC 8.8, hemoglobin 14.4, platelet count 228, sodium 137, potassium 4, BUN 33, creatinine 1.49, glucose 260 * x-ray right tibia-fibula showed mild generalized soft tissue swelling. wounds along both the medial and lateral aspect of the distal leg and ankle * Consultation obtained from infectious disease and vascular surgery * 06/14: Patient underwent sharp excisional debridement right lower extremity with surgery postoperative day 0 * 06/15: Patient seen and evaluated bedside, postoperative day 1, right lower extremity pain continues continue IV antibiotic on IV clindamycin follow-up on cultures * 06/16: Patient seen and everted bedside, patient continued to have severe discomfort and right lower extremity. Medical record reviewed patient had a negative venous Doppler for DVT on 05/14.Patient had an x-ray done of right lower extremity on 06/12. CT right lower extremity ordered to evaluate for deep tissue infection and no cellulitis * 06/17: Patient seen and evaluated bedside. CT right lower extremity findings discussed, no deep tissue infection noted no osteomyelitis noted. Continue on IV daptomycin * 06/19: Patient seen and evaluated and bedside. Patient counseled to wean off Dilaudid on IV daptomycin does complain of right leg wound pain extremely tender on palpation. Will Coordinate with ID regarding discharge planning all questions answered at bedside blood work reviewed at bedside with patient Objective - Vital Signs Vital signs: Vital Signs Temp 98.3 F 06/19/23 08:00 Pulse 61 06/19/23 08:38 Resp 16 06/19/23 08:38 BP 148/80 06/19/23 08:38 Pulse Ox 98 06/19/23 02:00 FiO2 Intake & Output 06/18/23 06/19/2306/19/23 18:59 06:59 18:59 Intake Total 120 Output Total 500 Balance 120 -500 Intake: Oral 120 Output: Urine 500 Other: Voiding Method Toilet Toilet Urinal Urinal # Voids 5 3 # Bowel Movements 1 1 - Exam PHYSICAL EXAMINATION: GENERAL: The patient is alert and oriented x3, not in any acute distress. Well developed, well nourished. HEENT: Pupils are round and equally reacting to light. EOMI. No scleral icterus. No conjunctival pallor. Normocephalic, atraumatic. No pharyngeal erythema. No thyromegaly. CARDIOVASCULAR: S1 and S2 present. No murmurs, rubs, or gallops. PULMONARY: Chest is clear to auscultation, no wheezing or crackles. ABDOMEN: Soft, nontender, nondistended, normoactive bowel sounds. No palpable organomegaly. MUSCULOSKELETAL: No joint swelling or deformity. EXTREMITIES: Extremity wound bandaged post incision and debridement, erythema base of wound noted to have purularnt discharge NEUROLOGICAL: Gross neurological examination did not reveal any focal deficits. SKIN: No rashes. - Labs CBC & Chem 7: 06/18/23 06:38 06/18/23 06:38 Labs: Abnormal Lab Results - Last 24 Hours (Table) 06/18/23 06/18/23 06/19/23 Range/Units 16:13 21:02 06:15 POC Glucose (mg/dL) 256 H 352 H 216 H (70-110) mg/dL 06/19/23 Range/Units 11:09 POC Glucose (mg/dL) 224 H (70-110) mg/dL Microbiology - Last 24 Hours (Table) 06/16/23 16:00 Anaerobic Culture - Preliminary Foot - Right 06/16/23 16:00 Gram Stain - Preliminary Foot - Right Wound Culture - Preliminary Yeast species Assessment and Plan Assessment: Assessment and plan Right lower extremity cellulitis recurrent failed outpatient treatment MRSA Wound infection Right lower extremity chronic nonhealing diabetic ulcer Hypertension Hyperlipidemia Diabetes mellitus * In regards to diabetic foot ulcer, consultation obtained from infectious disease and vascular surgery, status post excisional debridement * In regards to Cellulitis >> patient was on IV clindamycin, swicthed to Daptomycn by ID >> follow-up on blood cultures no growth>> CT right lower extremity Negative for abcess and osteomyelitis * Continue patient on amlodipine for history of hypertension, continue hydrochlorothiazide * In regards to diabetes mellitus Accu-Cheks before meals at bedtime continue patient on NovoLog, glipizide and correctional insulin * Patient noted to have episode of bradycardia , Coreg discontinued, if heart rate remained stable can resume Coreg * Patient seen by wound care will need outpatient follow-up with wound care clinic
[2023-06-19] MEDS ORDERED: traMADol 50 MG TAB PO PRN (13:25)
[2023-06-19] MEDS: FLUCONAZOLE 100 MG TAB PO SCH (15:04)
--- NOTE | 2023-06-19 16:15 | CT ---
EXAMINATION TYPE: CT angio abd aorta w/Runoff DATE OF EXAM: 06/19/2023 COMPARISON: HISTORY: R leg pain CT DLP: 3425 mGycm EXAMINATION TYPE: CT angio abd aorta w/Runoff DATE OF EXAM: 06/19/2023 COMPARISON: HISTORY: R leg pain CT DLP: 3425 mGycm CONTRAST: CTA thoracic and abdominal aorta with 3-D reconstruction is performed and with IV Contrast, patient i njected with 100mL mL of Isovue 300. Contrast CTA of the abdominal aorta with runoff of the lower extremity arterial system was performed from the lung bases through the ankles and feet. 3-D reconstruction imaging obtained at a separate wo rkstation. ABDOMINAL AORTA: Abdominal aorta is of normal caliber. Scattered atheromatous change. Renal arteries, SMA, celiac artery and ROSE are patent. Renal artery ca lcifications noted. Iliac vessels: Common iliac arteries are patent bilaterally. There is diffuse plaque formation noted bilaterally of the bilateral common iliac arteries without hemodynamically significant stenosis. Inte rnal/external iliac arteries are patent bilaterally without evidence for stenosis. Femoral arteries: Bilateral femoral arteries are patent seen. Profunda femoris arteries are patent bi laterally. There is mild scattered plaque of the superficial femoral arteries with 50% stenosis seen distally. Popliteal arteries: Popliteal arteries are patent bilaterally with only mild plaque formation noted. Below the knee arteries: Trifurcation is patent bilaterally. Peroneal, anterior and posterior tibial arteries demonstrate mild calcific disease without evidence for hemodynamically significant stenosis. Limited runoff of the ankles and feet given timing of the contrast bolus. LIVER/GB- No significant abnormality is seen. PANCREAS- No significant abnormality is seen. SPLEEN- No significant abnormality is seen. ADRENALS- No significant abnormality is seen. KIDNEYS/BLADDER-renal cysts noted. BOWEL- No Significant abnormality GENITAL ORGANS: No gross abnormality seen. LYMPH NODES- No greater than 1cm abdominal or pelvic lymph nodes are appreciated. OSSEOUS STRUCTURES- No significant abnormality is seen. OTHER- No significant abnormality is seen. IMPRESSION- 1. No hemodynamically significant stenosis identified. Approximate 50% stenosis distal left superfici al femoral artery.
[2023-06-19 16:21] LABS: Glucose,Whole Blood 292 mg/dL (70-110)
--- NOTE | 2023-06-19 16:49 | P.PN ---
Subjective Progress Note Date: 06/19/23 Principal diagnosis: Right leg wound and cellulitis Patient is a 52-year-old male with a past medical history significant for diabetes mellitus reflux hypertension [place], patient did have a history of nonhealing wound to the right lower extremity with the patient has for couple of months now patient has been treated in the outpatient setting for cellulitis or wound infection culture positive for MRSA, hospital with worsening pain and drainage, the patient is status post surgical debridement biopsy and deep culture completed on 06/14/2023. on today's evaluation that is 06/19/2023, the patient denies any fever or any chills, the patient is breathing comfortably , the patient denies chest pain or cough, the patient denies nausea and vomiting no abdominal pain and no diarrhea has been reported, patient continues to be complaining of the right lateral leg wound area especially with the dressing change Patient did have white count of 9.16 creatinine is 1.0 as of yesterday no blood returned today, blood culture negative CT was negative for any abscess local cul tures growing yeast Objective - Vital Signs Vital signs: Vital Signs Temp 98.3 F 06/19/23 08:00 Pulse 61 06/19/23 08:38 Resp 16 06/19/23 08:38 BP 148/80 06/19/23 08:38 Pulse Ox 98 06/19/23 02:00 FiO2 Intake & Output 06/18/23 06/19/23 06/19/23 18:59 06:59 18:59 Intake Total 120 Output Total 500 Balance 120 -500 Intake: Oral 120 Output: Urine 500 Other: Voiding Method Toilet Toilet Urinal Urinal # Voids 5 3 # Bowel Movements 1 1 - Exam GENERAL DESCRIPTION: A middle-aged male lying in bed in no distress RESPIRATORY SYSTEM: Unlabored breathing , decreased breath sounds at bases HEART: S1 S2 regular rate and rhythm , ABDOMEN: Soft , no tenderness EXTREMITIES: Right lower leg wound bases with minimal slough tissue did have surrounding maceration, patient did have a slightly cold feet - Labs CBC & Chem 7: 06/18/23 06:38 06/18/23 06:38 Labs: Abnormal Lab Results - Last 24 Hours (Table) 06/18/23 06/18/23 06/19/23 Range/Units 16:13 21:02 06:15 POC Glucose (mg/dL) 256 H 352 H 216 H (70-110) mg/dL 06/19/23 Range/Units 11:09 POC Glucose (mg/dL) 224 H (70-110) mg/dL Microbiology - Last 24 Hours (Table) 06/16/23 16:00 Anaerobic Culture - Preliminary Foot - Right 06/16/23 16:00 Gram Stain - Preliminary Foot - Right Wound Culture - Preliminary Yeast species Assessment and Plan (1) Cellulitis of right leg Current Visit: Yes Status: Acute Code(s): L03.115 - CELLULITIS OF RIGHT LOWER LIMB SNOMED Code(s): 794036247 (2) Ulcer of right lower leg Current Visit: Yes Status: Acute Code(s): L97.919 - NON-PRS CHRONIC ULC UNSP PRT OF R LOW LEG W UNSP SEVERITY SNOMED Code(s): 984263240 Plan: 1patient was in the hospital with a nonhealing wound to the right lower leg area that has been there for more than a month now outpatient culture positive for MRSA recently has been on oral doxycycline x-rays negative for any bony changes, with a nonhealing wound and significant pain but no fever elevated white count question of possible pyoderma gangrenosum. 2patient is status post surgical debridement deep culture as well as biopsy. Biopsy shows possible cellulitis and no other diagnosis 3vancomycin allergy that will limit the number of antibiotics safe to use. 4 local wound culture had been obtained and are currently growing Xin is more likely colonization, patient did have a CT of the left leg that was negative for any abscess 5patient to continue with daptomycin , patient seemed to be very upset about his persistent pain it was explained to the patient in layman terms with no fever no white count and normal CRP CT of the leg did not show any deeper infection more likely cause of his persistent fever is vascular as the patient did have a significant history of smoking the patient was seen with the admitting team CT angiogram with runoff has been ordered to evaluate PAD local care to continue with the Santyl as the patient is refusing Aquacel silver dressing, local culture did grew yeast is more likely colonizer rather than infected pathogen patient is on Plavix that is interacting with the Diflucan as will hold on adding antifungal at this point Patient did have multiple questions and concerns was has been also in layman terms time spent has been more than 35 minutes Dictation was produced using [employer] software. please excuse any grammatical, word or spelling errors. Time with Patient: Greater than 30
[2023-06-19 21:01] LABS: Glucose,Whole Blood 239 mg/dL (70-110)
[2023-06-19] MEDS: amLODIPine 5 MG TAB PO SCH (21:27)
[2023-06-20] MEDS: HYDROmorphone 1 MG/ML 1 ML SYRINGE IVP PRN ×5 (00:36→13:08)
[2023-06-20 06:19] LABS: Glucose,Whole Blood 150 mg/dL (70-110)
[2023-06-20] MEDS: INSULIN ASPART (NovoLOG) 100 UNIT/ML VIAL SQ SCH ×4 (06:38→13:08)
[2023-06-20] MEDS: TRIAMTERENE-HCTZ 37.5-25MG 1 EACH TAB PO SCH (09:04)
[2023-06-20] MEDS: glipiZIDE 10 MG TAB PO SCH (09:04)
[2023-06-20] MEDS: LOSARTAN 50 MG TAB PO SCH (09:04)
[2023-06-20] MEDS: FLUCONAZOLE 100 MG TAB PO SCH (09:04)
[2023-06-20] MEDS: oxyCODONE-APAP 10-325MG 1 EACH TAB PO PRN (09:05)
[2023-06-20] MEDS: CLOPIDOGREL 75 MG TAB PO SCH (09:06)
[2023-06-20] MEDS: ASPIRIN 81 MG PO SCH (09:06)
[2023-06-20] MEDS: hydrALAZINE HCL 50 MG TAB PO SCH (09:06)
[2023-06-20] MEDS: INSULN ASP PRT/INSULIN ASPART 100 UNIT/ML 10 ML VIAL SQ SCH (09:07)
[2023-06-20] MEDS: COLLAGENASE 250 UNIT/GM OINTMENT 30 GM TUBE TOPICAL SCH (09:07)
[2023-06-20 11:00] LABS: HCT 44.5 % (39.6-50.0); MCH 27.3 pg (27.0-32.0); MCHC 31.5 d/dL (32.0-37.0); MCV 86.7 FL (80.0-97.0); NRBC Per 100 WBC 0 X 10*3/uL (0.00-0.01); Platelet Count 224 X 10*3/uL (140-440); RBC 5.13 X 10*6/uL (4.40-5.60); RDW 14.2 % (11.5-14.5); WBC 7.79 X 10*3/uL (4.50-10.00)
[2023-06-20 11:08] LABS: Glucose,Whole Blood 265 mg/dL (70-110)
[2023-06-20 11:39] LABS: BUN/Creat Ratio 18.91 Ratio (12.00-20.00); Blood Urea Nitrogen 20.8 mg/dL (9.0-27.0); Calcium 9.8 mg/dL (8.7-10.3); Carbon Dioxide 28.3 mmol/L (21.6-31.8); Chloride 100 mmol/L (96-109); Glucose 159 mg/dL (70-110); Potassium 4.2 mmol/L (3.5-5.5); Sodium 139 mmol/L (135-145)
--- NOTE | 2023-06-20 13:00 | P.DS ---
Providers Date of admission: 06/12/23 22:39 Expected date of discharge: 06/20/23 Attending physician: Harris Coyne Consults: 06/12/23 22:00 Consult Physician Urgent Consulting Provider: Ta Chappell Consult Reason/Comments: cellulitis Do you want consulting provider notified?: Yes, Notify in am 06/20/23 11:02 Consult Physician Urgent Consulting Provider: Yuli Feng Consult Reason/Comments: non healing ulcer ?arterial Do you want consulting provider notified?: Yes [facility]: 52-year-old gentleman with past medical history significant for diabetes mellitus, hypertension, wounds of right lower extremity presented to the ER because of worsening redness of right lower extremity. Patient stated he was discharged from the hospital after being treated with antibiotics for this right leg wound. Patient completed a round of antibiotics but pain and redness in right lower extremity continued to worsen. Patient is complaining of fevers. Was no complain of orthopnea or PND. No complaint of nausea, vomiting or pain. Denies any lethargy or weakness. Patient was seen by infectious disease and they recommended patient come into the hospital for evaluation * Initial lab work done in the ER showed WBC 8.8, hemoglobin 14.4, platelet count 228, sodium 137, potassium 4, BUN 33, creatinine 1.49, glucose 260 * x-ray right tibia-fibula showed mild generalized soft tissue swelling. wounds along both the medial and lateral aspect of the distal leg and ankle * Consultation obtained from infectious disease and vascular surgery * 06/14: Patient underwent sharp excisional debridement right lower extremity with surgery postoperative day 0 * 06/15: Patient seen and evaluated bedside, postoperative day 1, right lower extremity pain continues continue IV antibiotic on IV clindamycin follow-up on cultures * 06/16: Patient seen and everted bedside, patient continued to have severe discomfort and right lower extremity. Medical record reviewed patient had a negative venous Doppler for DVT on 05/14.Patient had an x-ray done of right lower extremity on 06/12. CT right lower extremity ordered to evaluate for deep tissue infection and no cellulitis * 06/17: Patient seen and evaluated bedside. CT right lower extremity findings discussed, no deep tissue infection noted no osteomyelitis noted. Continue on IV daptomycin * 06/19: Patient seen and evaluated and bedside. Patient counseled to wean off Dilaudid on IV daptomycin does complain of right leg wound pain extremely tender on palpation. Will Coordinate with ID regarding discharge planning all questions answered at bedside blood work reviewed at bedside with patient * 06/20: Patient seen and evaluated bedside. Patient is alert and oriented 4. K plan discussed with him in detail. CT aortogram runoff findings discussed with him. Antibiotic K plan discussed with infectious disease discharge on Diflucan and doxycycline. Patient requested refills on Plavix provided. Patient already has insulin at home dose of insulin adjusted. Patient counseled to quit smoking. Requested to follow up on wound care clinic information provided from infectious disease and vascular PHYSICAL EXAMINATION: GENERAL: The patient is alert and oriented x3, not in any acute distress. Well developed, well nourished. HEENT: Pupils are round and equally reacting to light. EOMI. No scleral icterus. No conjunctival pallor. Normocephalic, atraumatic. No pharyngeal erythema. No thyromegaly. CARDIOVASCULAR: S1 and S2 present. No murmurs, rubs, or gallops. PULMONARY: Chest is clear to auscultation, no wheezing or crackles. ABDOMEN: Soft, nontender, nondistended, normoactive bowel sounds. No palpable organomegaly. MUSCULOSKELETAL: No joint swelling or deformity. EXTREMITIES: Extremity wound bandaged post incision and debridement, erythema base of wound noted to have NO purularnt discharge NEUROLOGICAL: Gross neurological examination did not reveal any focal deficits. SKIN: No rashes. Assessment: Assessment and plan Right lower extremity cellulitis recurrent failed outpatient treatment MRSA Wound infection Right lower extremity chronic nonhealing diabetic ulcer Hypertension Hyperlipidemia Diabetes mellitus Chronic smoker * In regards to diabetic foot ulcer, consultation obtained from infectious disease and vascular surgery, status post excisional debridement * In regards to Cellulitis >> patient was on IV clindamycin, swicthed to Daptomycn by ID >> follow-up on blood cultures no growth>> CT right lower extremity Negative for abcess and osteomyelitis>> patient discharged on Diflucan and doxycycline to complete 10 day course and follow-up with infectious disease outpatient * Continue patient on amlodipine for history of hypertension, continue hydrochlorothiazide * In regards to diabetes mellitus Accu-Cheks before meals at bedtime, home dose of NovoLog 70/30 mL with 25 units twice a day * Patient noted to have episode of bradycardia , bradycardia improved, hence coreg resumed * Patient seen by wound care will need outpatient follow-up with wound care clinic Patient Condition at Discharge: Fair Plan - Discharge Summary Discharge Rx Participant: No New Discharge Prescriptions: New Fluconazole [Diflucan] 200 mg PO DAILY 10 Days #10 tab Continue Atorvastatin [Lipitor] 80 mg PO HS glipiZIDE [Glucotrol] 10 mg PO BID Triamterene-Hctz 37.5-25Mg [Maxzide 37.5-25] 1 tab PO DAILY carvediloL [Coreg] 25 mg PO BID amLODIPine [Norvasc] 5 mg PO HS hydrALAZINE HCL [Apresoline] 50 mg PO BID oxyCODONE-APAP 10-325MG [Percocet 10-325 mg] 1 tab PO TID PRN PRN Reason: Pain Doxycycline [Vibramycin] 100 mg PO BID 10 Days #20 capsule metFORMIN HCL [Glucophage] 1,000 mg PO BID Aspirin 81 mg PO DAILY #90 tab Losartan Potassium 100 mg PO DAILY Ondansetron Odt [Zofran ODT] 4 mg PO Q8HR PRN #10 tab PRN Reason: Nausea Nitroglycerin Sl Tabs [Nitrostat] 0.4 mg SL Q5M PRN PRN Reason: Chest Pain Clopidogrel [Plavix] 75 mg PO DAILY 30 Days #30 tab Changed Insulin Aspart Prot/Insuln Asp [Novolog MIX 70-30 Flexpen] 25 unit SQ BID #0 Discharge Medication List Atorvastatin [Lipitor] 80 mg PO HS 11/11/18 [History] glipiZIDE [Glucotrol] 10 mg PO BID 01/05/19 [History] Triamterene-Hctz 37.5-25Mg [Maxzide 37.5-25] 1 tab PO DAILY 01/23/19 [History] carvediloL [Coreg] 25 mg PO BID 05/11/19 [History] amLODIPine [Norvasc] 5 mg PO HS 07/21/20 [History] hydrALAZINE HCL [Apresoline] 50 mg PO BID 07/21/20 [History] oxyCODONE-APAP 10-325MG [Percocet 10-325 mg] 1 tab PO TID PRN 07/21/20 [History] metFORMIN HCL [Glucophage] 1,000 mg PO BID 04/09/22 [History] Aspirin 81 mg PO DAILY #90 tab 04/11/22 [Rx] Losartan Potassium 100 mg PO DAILY 05/13/23 [History] Ondansetron Odt [Zofran ODT] 4 mg PO Q8HR PRN #10 tab 05/25/23 [Rx] Nitroglycerin Sl Tabs [Nitrostat] 0.4 mg SL Q5M PRN 06/12/23 [History] Clopidogrel [Plavix] 75 mg PO DAILY 30 Days #30 tab 06/20/23 [Rx] Doxycycline [Vibramycin] 100 mg PO BID 10 Days #20 capsule 06/20/23 [Rx] Fluconazole [Diflucan] 200 mg PO DAILY 10 Days #10 tab 06/20/23 [Rx] Insulin Aspart Prot/Insuln Asp [Novolog MIX 70-30 Flexpen] 25 unit SQ BID #0 06/20/23 [Rx] Follow up Appointment(s)/Referral(s): Anuel Peters MD [Primary Care Provider] - 06/22/23 9:00 am Vladislav Gadnara DO [STAFF PHYSICIAN] - 07/11/23 11:45 am Ta Chappell MD [STAFF PHYSICIAN] - 1 Week Activity/Diet/Wound Care/Special Instructions: Follow-up with wound care clinic. Information for vascular surgery wound care clinic and given Complete course of antibiotic Discharge Disposition: HOME SELF-CARE
[2023-06-20 13:34] VITALS: BP 169/83; PULSE 97; RESP 19; TEMP 97.9
[2023-06-20 13:59] LABS: Erythrocyte Sedimentation Rate 31 mm/Hr (0-20)
--- NOTE | 2023-06-20 16:46 | CDI ---
Documentation Clarification Form Date: 06/20/2023 03:50:44 PM From: Norma Sorenson RN, CCDS Admit Date: 06/12/2023 10:39:00 PM Patient Name: Jeet Gonzalez Visit Number: [id number] Discharge Date: ATTENTION: The Clinical Documentation Specialists (CDI) and [facility] Coding Staff appreciate your assistance in clarifying documentation. Please respond to the clarification below the line at the bottom and electronically sign. The CDI & [facility] Coding staff will review the response and follow-up if needed. Please note: Queries are made part of the Legal Health Record. If you have any questions, please contact the author of this message via ITS. Dr. Ta Chappell Cellulitis is documented in the ongoing progress ID notes starting on 06/15/2023 and patient has a history of diabetes mellitus. Additional clarification regarding the type of cellulitis is requested. History/risk factors: Diabetes Mellitus, GERD/Reflux, Hypertension, R great toe diabetic foot ulcer, Clinical Indicators: 52-year-old male with a past medical history significant for diabetes mellitus. Presents with a nonhealing wound to the right lower leg area that has been there for more than a month now outpatient culture positive for MRSA recently has been on oral doxycycline x-rays negative for any bony changes, with a nonhealing wound and significant pain but no fever, no elevated white count. He has Cellulitis of right leg. 06/15 VS: 132/83 50 18 97.5 96% RA 06/12 WBC 8.8 (on admission) 06/15 WBC 7.72 Treatment: Clindamycin 600 MG IVPB Q8 06/12-06/16 Daptomycin 400 MG IVPB Q 24 HRS 06/16-06/19 Santyl 1 apply topical Daily with dressing change Please clarify the etiology of the cellulitis, if known: [ ] Cellulitis is a diabetic skin complication [ x] Cellulitis is not a diabetic skin complication [ ] Other, please specify: [ ] Unable to determine (Template Last Revised: October 2022) MTDD
[2023-06-20] MEDS ORDERED: INSULN ASP PRT/INSULIN ASPART 100 UNIT/ML 10 ML VIAL SQ SCH (21:00)
== END 2023-06-20 15:57 | disposition home or self-care (01) | DRG 623 ==
LOC: EC 19:43 → 5NMEDONC 22:39 → 4SSUR 06-13 02:23
PROVIDERS: ADMIT Hospitalist; ATTEND Hospitalist
PROC: 0JBN0ZZ Excision of Right Lower Leg Subcutaneous Tissue and Fascia, Open Approach (ICD-10-PCS; principal; 2023-06-14 09:55)
PROC: 0HBKXZX Excision of Right Lower Leg Skin, External Approach, Diagnostic (ICD-10-PCS; principal; 2023-06-14 09:55)
DX: E11.621 Type 2 diabetes mellitus with foot ulcer (principal); L03.115 Cellulitis of right lower limb; L97.312 Non-pressure chronic ulcer of right ankle with fat layer exposed; E11.622 Type 2 diabetes mellitus with other skin ulcer; E78.5 Hyperlipidemia, unspecified; F17.210 Nicotine dependence, cigarettes, uncomplicated; B95.62 Methicillin resistant Staphylococcus aureus infection as the cause of diseases classified elsewhere; I10 Essential (primary) hypertension; I25.2 Old myocardial infarction; L29.9 Pruritus, unspecified; I25.10 Atherosclerotic heart disease of native coronary artery without angina pectoris; E11.628 Type 2 diabetes mellitus with other skin complications; K44.9 Diaphragmatic hernia without obstruction or gangrene; G89.29 Other chronic pain; K21.9 Gastro-esophageal reflux disease without esophagitis; L97.519 Non-pressure chronic ulcer of other part of right foot with unspecified severity; Z79.02 Long term (current) use of antithrombotics/antiplatelets; Z79.4 Long term (current) use of insulin; Z79.82 Long term (current) use of aspirin; Z79.84 Long term (current) use of oral hypoglycemic drugs; Z79.899 Other long term (current) drug therapy; Z82.49 Family history of ischemic heart disease and other diseases of the circulatory system; Z83.3 Family history of diabetes mellitus; Z86.14 Personal history of Methicillin resistant Staphylococcus aureus infection; Z87.442 Personal history of urinary calculi; Z88.1 Allergy status to other antibiotic agents; Z95.5 Presence of coronary angioplasty implant and graft
CPT/HCPCS: 36415; 75635; 80048; 80053; 83036; 83605; 85025; 85027; 85652; 86140; 87040; 87070; 87075; 87205; 88305; 96365; 96366; 96375; 96376; 99284

== ENCOUNTER 2023-09-09 12:52 | Emergency (ER) | payer OTHER, BC ==
[2023-09-09] MEDS ORDERED: HYDROmorphone 0.5 MG/0.5 ML SYRINGE IVP STA (13:10)
[2023-09-09] MEDS ORDERED: HYDROmorphone 1 MG/ML 1 ML SYRINGE IVP STA ×2 (13:10→16:32)
[2023-09-09] MEDS ORDERED: SODIUM CHLORIDE 0.9% 1,000 ML IV ONE (13:10)
[2023-09-09 13:34] VITALS: RESP 18; TEMP 98.2
--- NOTE | 2023-09-09 13:55 | ED ---
Back Pain HPI - General Chief Complaint: Back Pain/Injury Stated Complaint: Back pain Time Seen by Provider: 09/09/23 13:00 Source: patient Limitations: no limitations - History of Present Illness Initial Comments: Patient is a 52-year-old gentleman with history of hypertension, diabetes, coronary artery disease, chronic back pain and degenerative disc disease and presents emergency room with complaints of worsening chronic back pain. Patient states that it started a few months ago and is progressively worsened. Patient states he used to see a strategic sourcing specialist routinely for the back however when they wanted to do surgery he needed to have cardiac clearance and that took quite a while to have done. He had a cardiac stent or a year ago however has not followed up with the spine surgeon for the pending surgery. Patient has had osteomyelitis that he states was from bacteremia stemmed from a toe infection. He denies any history of IV drug use. Patient states that the pain is worse in the lumbar spine radiating down both legs. He has weakness in both legs but wor se in the right. Patient states that he had one episode 2 weeks ago where he irrigated himself at work and did not realize it however he has not had any issues since. He denies any foot drop. Patient feels as though he has had intermittent fevers, sweats and nausea. Patient's primary care physician write him chronic pain medication, oxycodone 10 mg 3 times a day and he states that this is not alleviating the pain. Patient signed in 2 weeks ago to the emergency room but left AMA from the waiting room without a full evaluation. He went over to later on emergency room and had images of the thoracic spine and was told everything was fine however they did not image his lumbar spine were his complaint was. - Related Data Home Medications Medication Instructions Recorded Confirmed Atorvastatin [Lipitor] 80 mg PO HS 11/11/18 06/12/23 glipiZIDE [Glucotrol] 10 mg PO BID 01/05/19 06/12/23 Triamterene-Hctz 37.5-25Mg 1 tab PO DAILY 01/23/19 06/12/23 [Maxzide 37.5-25] carvediloL [Coreg] 25 mg PO BID 05/11/19 06/12/23 amLODIPine [Norvasc] 5 mg PO HS 07/21/20 06/12/23 hydrALAZINE HCL [Apresoline] 50 mg PO BID 07/21/20 06/12/23 oxyCODONE-APAP 10-325MG [Percocet 1 tab PO TID PRN 07/21/20 06/12/23 10-325 mg] metFORMIN HCL [Glucophage] 1,000 mg PO BID 04/09/22 06/12/23 Losartan Potassium 100 mg PO DAILY 05/13/23 06/12/23 Nitroglycerin Sl Tabs [Nitrostat] 0.4 mg SL Q5M PRN 06/12/23 06/12/23 Previous Rx's Medication Instructions Recorded Aspirin 81 mg PO DAILY #90 tab 04/11/22 Ondansetron Odt [Zofran ODT] 4 mg PO Q8HR PRN #10 tab 05/25/23 Clopidogrel [Plavix] 75 mg PO DAILY 30 Days #30 tab 06/20/23 Doxycycline [Vibramycin] 100 mg PO BID 10 Days #20 capsule 06/20/23 Fluconazole [Diflucan] 200 mg PO DAILY 10 Days #10 tablet 06/20/23 Insulin Aspart Prot/Insuln Asp 25 unit SQ BID #0 06/20/23 [Novolog MIX 70-30 Flexpen] L.idocaine 5% Patch [Lidoderm] 1 each TP Q12HR #20 patch 09/09/23 Allergies Allergy/AdvReac Type Severity Reaction Status Date / Time vancomycin Allergy Rash/Hives Verified 09/09/23 12:57 Review of Systems ROS Statement: Those systems with pertinent positive or pertinent negative responses have been documented in the HPI. ROS Other: All systems not noted in ROS Statement are negative. Past Medical History Past Medical History: Chest Pain / Angina, Diabetes Mellitus, GERD/Reflux, Hypertension, Myocardial Infarction ([place]), Syncope Additional Past Medical History / Comment(s): NIDDM type II, hiatal hernia, nephrolithiasis, chronic low back pain, bilateral leg numbness, R great toe diabetic foot ulcer, past left olecranon bursitis, osteomyelitis in L4-L5 w/abx treatment via PICC line (2017), managed by dr tran. Last Myocardial Infarction Date:: 2021 History of Any Multi-Drug Resistant Organisms: MRSA Date of last positivie culture/infection: 05/16/23 MDRO Source:: right Lower Leg Past Surgical History: Appendectomy, Cholecystectomy, Heart Catheterization, Heart Catheterization With Stent, Orthopedic Surgery Additional Past Surgical History / Comment(s): RENAL ANGIOGRAM 2006 for HTN, cardiac cath 2005, LT WRIST TENDON REPAIR 2013, RT ROTATOR CUFF REPAIR, bilateral knee arthroscopies, I&D L axillae, PICC LINES REMOVED. [address] Ha in December of 2018 Past Anesthesia/Blood Transfusion Reactions: No Reported Reaction Date of Last Stent Placement:: 12/2018 Past Psychological History: No Psychological Hx Reported Smoking Status: Current every day smoker Past Alcohol Use History: None Reported Past Drug Use History: None Reported - Past Family History Father Family Medical History: Coronary Artery Disease (CAD), Diabetes Mellitus, Hypertension Additional Family Medical History / Comment(s): pt. reports his father had a four vessel CABG Mother Family Medical History: Cancer, Hypertension Additional Family Medical History / Comment(s): LUNG CANCER(NON SMOKER) General Exam Limitations: no limitations General appearance: alert, in no apparent distress Head exam: Present: atraumatic, normocephalic, normal inspection Eye exam: Present: normal appearance ENT exam: Present: normal exam Neck exam: Present: normal inspection Respiratory exam: Present: normal lung sounds bilaterally Cardiovascular Exam: Present: regular rate GI/Abdominal exam: Present: soft Back exam: Present: full ROM, tenderness (diffuse pain, pain with b/l straight leg test), paraspinal tenderness, vertebral tenderness, other (diffuse tenderness of the lumbar spine, no rash, no erythema or warmth, EHL intact bl. able to ambulate with steady gait) Neurological exam: Present: alert, oriented X3, CN II-XII intact Psychiatric exam: Present: normal affect, normal mood Skin exam: Present: warm, dry Course Vital Signs 09/09/23 09/09/23 12:53 16:25 Temperature 98.2 F 98.2 F Pulse Rate 72 86 Respiratory 18 18 Rate Blood Pressure 128/88 126/81 O2 Sat by Pulse 97 95 Oximetry - Reevaluation(s) Reevaluation #1: 09/09/23 18:43 Patient has been able to ambulate in the emergency room however he feels as though he has numbness in the upper bilateral legs. Again patient denies any seizure. He has not had any further episodes of incontinence over the last 2 weeks with the exception with pains for 2 weeks ago. He has not had any foot drop. He is moving his extremities without any limitations on multiple evaluations. The patient does have a prescription for an MRI however he has not followed up to have it scheduled since he was written 5-6 months ago. Patient did get up and walk to the bathroom and back to his wheelchair with a steady gait and without weakness or foot drop. I reiterated the importance of following up with the spine surgeon and encouraged him to schedule the MRI that he was supposed to have scheduled several months ago. Patient then stated he had been able to fill his Percocet and morphine as, has mariola has not for the last 2 days and he is waiting for it to come in. We'll give him a few doses of Tylenol with Codeine as a starter pack in the emergency room. He understands he cannot read anything else as he is undergoing pain management with his PCP. I did discuss signs return to the emergency room and he understands and agrees with this plan. 09/09/23 21:55 09/09/23 21:56 Medical Decision Making - Medical Decision Making Was pt. sent in by a medical professional or institution (, PA, AUTOMOBILE RADIATOR MECHANIC, urgent care, hospital, or skilled nursing...) When possible be specific @ -[No] Did you speak to anyone other than the patient for history (EMS, parent, family, police, friend...)? What history was obtained from this source @ - at bedside Did you review nursing and triage notes (agree or disagree)? Why? @ -[I reviewed and agree with nursing and triage notes] Were old charts reviewed (outside hosp., previous admission, EMS record, old EKG, old radiological studies, urgent care reports/EKG's, skilled nursing records)? Report findings @ -[yes old charts were reviewed] Differential Diagnosis (chest pain, altered mental status, abdominal pain women, abdominal pain men, vaginal bleeding, weakness, fever, dyspnea, syncope, headache, dizziness, GI bleed, back pain, seizure, CVA, palpatations, mental health, musculoskeletal)? @ Degenerative disc disease, sciatica, chronic back pain, spondylolysis, osteomyelitis of he spine] EKG interpreted by me (3pts min.). @ -[As above] X-rays interpreted by me (1pt min.). @ -[None done] CT interpreted by me (1pt min.). @ CT of the lumbar spine is negative for any obvious abscess or infection however there is diffuse multilevel degenerative disc disease seen worse at L3- L4] U/S interpreted by me (1pt. min.). @ -[None done] What testing was considered but not performed or refused? (CT, X-rays, U/S, labs)? Why? @ -[None] What meds were considered but not given or refused? Why? @ -[None] Did you discuss the management of the patient with other professionals (professionals i.e. , PA, AUTOMOBILE RADIATOR MECHANIC, lab, RT, psych nurse, oncology social worker, veneer slicing machine operator, teacher, bank secrecy act officer, case sealer)? Give summary @ -[No] Was smoking cessation discussed for >3mins.? @ -[No] Was critical care preformed (if so, how long)? @ -[No] Were there social determinants of health that impacted care today? How? (Homelessness, low income, unemployed, alcoholism, drug addiction, transportation, low edu. Level, literacy, decrease access to med. care, care home, rehab)? @ -[No] Was there de-escalation of care discussed even if they declined (Discuss DNR or withdrawal of care, Hospice)? DNR status @ -[No] What co-morbidities impacted this encounter? (DM, HTN, Smoking, COPD, CAD, Cancer, CVA, ARF, Chemo, Hep., AIDS, mental health diagnosis, sleep apnea, morbid obesity)? @ -[None] Was patient admitted / discharged? Hospital course, mention meds given and route, prescriptions, significant lab abnormalities, going to OR and other pertinent info. @ This has been an on going chronic back pain with radiculopathy for many years and has worsened over the last few months. Patient has a prescription for an outpatient MRI that he is just not followed up with 2 set up. He is working on reestablishing with his spine surgeon that he is seen in the past however I will give outpatient referrals that he may try as well. Patient is neurologically intact in the emergency room. EHL is intact and he has been able to ambulate with a steady gait in the emergency room. He feels numbness down the legs but he is able to ambulate. He had an episode where he had wet pants at work however has not had any further loss of bladder control and has not had any loss of bowel control and denies saddle anesthesia. Patient is stable to follow up as an outpatient at this time however he does understand signs return to the emergency room including but not limited to any foot drop, paralysis of the Leg, weakness or new concerning symptoms U arndiagnosed new problem with uncertain prognosis? @ -[No] Drug Therapy requiring intensive monitoring for toxicity (Heparin, Nitro, Insulin, Cardizem)? @ -[No] Were any procedures done? @ -[No] Diagnosis/symptom? @ Degenerative disc disease, sciatica, chronic back pain lumbar radiculopathy maggy, or Chronic, or Acute on Chronic? @ -Acute Uncomplicated (without systemic symptoms) or Complicated (systemic symptoms)? @ -[default] Side effects of treatment? @ -[No] Exacerbation, Progression, or Severe Exacerbation? @ Exacerbation Poses a threat to life or bodily function? How? (Chest pain, [place], [place], pneumonia, PE, COPD, DKA, ARF, appy, cholecystitis, CVA, Diverticulitis, Homicidal, Suicidal, threat to staff... and all critical care pts) @ -[No] - Lab Data Result diagrams: 09/09/23 13:40 09/09/23 13:40 Lab Results 09/09/23 09/09/23 Range/Units 13:40 13:40 WBC 10.3 (3.8-10.6) k/uL RBC 5.37 (4.30-5.90) m/uL Hgb 15.3 (13.0-17.5) gm/dL Hct 45.3 (39.0-53.0) % MCV 84.4 (80.0-100.0) fL MCH 28.5 (25.0-35.0) pg MCHC 33.8 (31.0-37.0) g/dL RDW 13.5 (11.5-15.5) % Plt Count 303 (150-450) k/uL MPV 8.3 Neutrophils % 80 % Lymphocytes % 12 % Monocytes % 5 % Eosinophils % 1 % Basophils % 1 % Neutrophils # 8.2 H (1.3-7.7) k/uL Lymphocytes # 1.3 (1.0-4.8) k/uL Monocytes # 0.5 (0-1.0) k/uL Eosinophils # 0.1 (0-0.7) k/uL Basophils # 0.1 (0-0.2) k/uL Sodium 136 L (137-145) mmol/L Potassium 3.6 (3.5-5.1) mmol/L Chloride 99 (98-107) mmol/L Carbon Dioxide 22 (22-30) mmol/L Anion Gap 15 mmol/L BUN 36 H (9-20) mg/dL Creatinine 1.51 H (0.66-1.25) mg/dL Est GFR (CKD-EPI)AfAm 60 (>60 ml/min/1.73 sqM) Est GFR (CKD-EPI)NonAf 52 (>60 ml/min/1.73 sqM) Glucose 269 H (74-99) mg/dL Calcium 9.5 (8.4-10.2) mg/dL Total Bilirubin 0.7 (0.2-1.3) mg/dL AST 25 (17-59) U/L ALT 21 (4-49) U/L Alkaline Phosphatase 79 (38-126) U/L C-Reactive Protein <0.5 (<1.0) mg/dL Total Protein 6.9 (6.3-8.2) g/dL Albumin 4.2 (3.5-5.0) g/dL - Radiology Data Radiology results: report reviewed, image reviewed Disposition Clinical Impression: Degenerative disc disease, Back pain, Sciatica, Radiculopathy due to lumbar intervertebral disc disorder Disposition: HOME SELF-CARE Condition: Fair Instructions (If sedation given, give patient instructions): Acute Low Back Pain (ED), Lumbar Radiculopathy (ED), Chronic Back Pain (DC), Back Pain (ED), Lower Back Exercises (ED) Prescriptions: L.idocaine 5% Patch [Lidoderm] 1 each TP Q12HR #20 patch Is patient prescribed a controlled substance at d/c from ED?: Yes When asked, does pt state using other controlled substances?: Yes If prescribed controlled substance>3 days was MAPS reviewed?: Prescribed <3 Days If opioid is for acute pain is fill amount 7 days or less?: No Referrals: Anuel Peters MD [Primary Care Provider] - 1-2 days Time of Disposition: 18:52
[2023-09-09 14:03] LABS: Basophils # (A) 0.1 k/uL (0-0.2); Basophils % (A) 1 %; Eosinophils # (A) 0.1 k/uL (0-0.7); Eosinophils % (A) 1 %; HCT 45.3 % (39.0-53.0); HGB 15.3 gm/dL (13.0-17.5); Lymphocytes # (A) 1.3 k/uL (1.0-4.8); Lymphocytes % (A) 12 %; MCH 28.5 pg (25.0-35.0); MCHC 33.8 g/dL (31.0-37.0); MCV 84.4 fL (80.0-100.0); Mean Platelet Volume 8.3; Monocytes # (A) 0.5 k/uL (0-1.0); Monocytes % (A) 5 %; Neutrophils # (A) 8.2 k/uL (1.3-7.7); Neutrophils % (A) 80 %; Platelet Count 303 k/uL (150-450); RBC 5.37 m/uL (4.30-5.90); RDW 13.5 % (11.5-15.5); WBC 10.3 k/uL (3.8-10.6)
[2023-09-09 14:26] LABS: ALT 21 U/L (4-49); AST 25 U/L (17-59); African American GFR (CKD) 60 (>60 ml/min/1.73 sqM); Albumin 4.2 g/dL (3.5-5.0); Alkaline Phosphatase 79 U/L (38-126); Anion Gap 15 mmol/L; Blood Urea Nitrogen 36 mg/dL (9-20); C Reactive Protein <0.5 mg/dL (<1.0); Calcium 9.5 mg/dL (8.4-10.2); Carbon Dioxide 22 mmol/L (22-30); Chloride 99 mmol/L (98-107); Glucose 269 mg/dL (74-99); Non-African American GFR(CKD) 52 (>60 ml/min/1.73 sqM); Potassium 3.6 mmol/L (3.5-5.1); Sodium 136 mmol/L (137-145); Total Bilirubin 0.7 mg/dL (0.2-1.3); Total Protein 6.9 g/dL (6.3-8.2)
--- NOTE | 2023-09-09 16:26 | CT ---
EXAMINATION TYPE: CT lumbar spine w con CT DLP: 1535.6 mGycm, Automated exposure control for dose reduction was used. DATE OF EXAM: 09/09/2023 4:04 PM COMPARISON: CT lumbar spine 02/17/2019. CLINICAL INDICATION:Male, 52 years old with history of pain, weakness, hx osteomyelitis, evaluate abs cess; TECHNIQUE: Multiple axial images were obtained from the midportion of T11 through the sacroiliac magalys nts. Soft tissue and bone windows in coronal and sagittal planes were obtained and reviewed. 3-D ref ormats of the bones were created on a separate workstation and submitted for review. Contrast used:80 mL of Isovue 300 with IV Contrast, none. Oral contrast used: none. FINDINGS: Alignment: There are 5 lumbar type vertebral bodies within normal alignment. Bone: No evidence of fracture is identified. Degenerative changes: Mild multilevel degenerative changes of the lumbar spine are present with broad -based disc bulges and facet arthropathy. Findings are most pronounced at the L3-L4 level with modera te spinal canal narrowing. Mild to moderate bilateral neural foraminal narrowing is appreciated. Other: Bilateral renal cysts are identified. Atherosclerosis of aorta is present. IMPRESSION: 1. No evidence for acute process. 2. Multilevel degenerative changes, most pronounced at the L3-L4 level with moderate spinal canal thi rowing.
[2023-09-09 16:27] VITALS: BP 126/81; PULSE 86
[2023-09-09] MEDS ORDERED: DEXAMETHASONE SOD PHOSPHATE 10 MG/ML 1 ML VIAL IVP STA (18:40)
[2023-09-09] MEDS ORDERED: ACET/COD 300 MG/30 MG STARTER PACK 6 TAB BTL PO STA (18:42)
[2023-09-10 11:14] LABS: Erythrocyte Sedimentation Rate 31 mm/Hr (0-20)
== END 2023-09-09 19:16 | disposition home or self-care (01) ==
LOC: EC 12:52
DX: M51.16 Intervertebral disc disorders with radiculopathy, lumbar region (principal); G89.29 Other chronic pain; E11.9 Type 2 diabetes mellitus without complications; I10 Essential (primary) hypertension; I25.2 Old myocardial infarction; F17.200 Nicotine dependence, unspecified, uncomplicated; Z79.84 Long term (current) use of oral hypoglycemic drugs; Z79.899 Other long term (current) drug therapy; Z88.1 Allergy status to other antibiotic agents; Z90.49 Acquired absence of other specified parts of digestive tract
CPT/HCPCS: 36415; 80053; 85652; 85025; 86140; 72132; 99284; 96374; 96375; 96376; 96361; J1100; J1170; Q9967

== ENCOUNTER 2024-07-07 17:05 | Observation (INO) | payer BC, OTHER ==
[2024-07-07 17:42] LABS: Basophils # (A) 0.1 k/uL (0-0.2); Basophils % (A) 1 %; Eosinophils # (A) 0.5 k/uL (0-0.7); Eosinophils % (A) 4 %; HCT 50.7 % (39.0-53.0); HGB 16.3 gm/dL (13.0-17.5); Hypochromasia Slight; Lymphocytes # (A) 1.6 k/uL (1.0-4.8); Lymphocytes % (A) 14 %; MCH 26.7 pg (25.0-35.0); MCHC 32.1 g/dL (31.0-37.0); MCV 83.3 fL (80.0-100.0); Mean Platelet Volume 7.9; Monocytes # (A) 0.7 k/uL (0-1.0); Monocytes % (A) 6 %; Neutrophils # (A) 8.4 k/uL (1.3-7.7); Neutrophils % (A) 74 %; Platelet Count 237 k/uL (150-450); RBC 6.09 m/uL (4.30-5.90); RDW 14.6 % (11.5-15.5); WBC 11.4 k/uL (3.8-10.6)
--- NOTE | 2024-07-07 17:46 | ED ---
General Adult HPI - General Chief complaint: Chest Pain Stated complaint: chest pain Time Seen by Provider: 07/07/24 17:21 Source: patient, RN notes reviewed, old records reviewed Mode of arrival: ambulatory Limitations: no limitations - History of Present Illness Initial comments: 53-year-old male presenting for evaluation of chest pain which has been intermittent over the past 3 days. Patient has history of coronary artery disease status post stenting approximately 18 months ago. He is a diabetic and a current smoker. His pain has been relieved by nitroglycerin. His pain does radiate to the left arm. It is associated with nausea. - Related Data Home Medications Medication Instructions Recorded Confirmed Atorvastatin [Lipitor] 80 mg PO HS 11/11/18 06/12/23 glipiZIDE [Glucotrol] 10 mg PO BID 01/05/19 06/12/23 Triamterene-Hctz 37.5-25Mg 1 tab PO DAILY 01/23/19 06/12/23 [Maxzide 37.5-25] carvediloL [Coreg] 25 mg PO BID 05/11/19 06/12/23 amLODIPine [Norvasc] 5 mg PO HS 07/21/20 06/12/23 hydrALAZINE HCL [Apresoline] 50 mg PO BID 07/21/20 06/12/23 oxyCODONE-APAP 10-325MG [Percocet 1 tab PO TID PRN 07/21/20 06/12/23 10-325 mg] metFORMIN HCL [Glucophage] 1,000 mg PO BID 04/09/22 06/12/23 Losartan Potassium 100 mg PO DAILY 05/13/23 06/12/23 Nitroglycerin Sl Tabs [Nitrostat] 0.4 mg SL Q5M PRN 06/12/23 06/12/23 Previous Rx's Medication Instructions Recorded Aspirin 81 mg PO DAILY #90 tab 04/11/22 Ondansetron Odt [Zofran ODT] 4 mg PO Q8HR PRN #10 tab 05/25/23 Clopidogrel [Plavix] 75 mg PO DAILY 30 Days #30 tab 06/20/23 Doxycycline [Vibramycin] 100 mg PO BID 10 Days #20 capsule 06/20/23 Fluconazole [Diflucan] 200 mg PO DAILY 10 Days #10 tablet 06/20/23 Insulin Aspart Prot/Insuln Asp 25 unit SQ BID #0 06/20/23 [NovoLOG MIX 70-30 Flexpen] Lidocaine 5% Patch [Lidoderm] 1 each TP Q12HR #20 patch 09/09/23 Allergies Allergy/AdvReac Type Severity Reaction Status Date / Time vancomycin Allergy Rash/Hives Verified 07/07/24 19:06 Review of Systems ROS Statement: Those systems with pertinent positive or pertinent negative responses have been documented in the HPI. ROS Other: All systems not noted in ROS Statement are negative. Past Medical History Past Medical History: Chest Pain / Angina, Diabetes Mellitus, GERD/Reflux, Hypertension, Myocardial Infarction ([place]), Syncope Additional Past Medical History / Comment(s): NIDDM type II, hiatal hernia, nep hrolithiasis, chronic low back pain, bilateral leg numbness, R great toe diabetic foot ulcer, past left olecranon bursitis, osteomyelitis in L4-L5 w/abx treatment via PICC line (2017), managed by dr tran. Last Myocardial Infarction Date:: 2021 History of Any Multi-Drug Resistant Organisms: MRSA Date of last positivie culture/infection: 05/16/23 MDRO Source:: right Lower Leg Past Surgical History: Appendectomy, Cholecystectomy, Heart Catheterization, Heart Catheterization With Stent, Orthopedic Surgery Additional Past Surgical History / Comment(s): RENAL ANGIOGRAM 2005 for HTN, cardiac cath 2005, LT WRIST TENDON REPAIR 2013, RT ROTATOR CUFF REPAIR, bilateral knee arthroscopies, I&D L axillae, PICC LINES REMOVED. [address] Ha in December of 2018 Past Anesthesia/Blood Transfusion Reactions: No Reported Reaction Date of Last Stent Placement:: 12/2018 Past Psychological History: No Psychological Hx Reported Smoking Status: Current every day smoker Past Alcohol Use History: None Reported Past Drug Use History: None Reported - Past Family History Father Family Medical History: Coronary Artery Disease (CAD), Diabetes Mellitus, Hypertension Additional Family Medical History / Comment(s): pt. reports his father had a four vessel CABG Mother Family Medical History: Cancer, Hypertension Additional Family Medical History / Comment(s): LUNG CANCER(NON SMOKER) General Exam Limitations: no limitations General appearance: alert, in no apparent distress Head exam: Present: atraumatic, normocephalic Eye exam: Present: normal appearance, PERRL ENT exam: Present: normal exam Neck exam: Present: normal inspection. Absent: tenderness, meningismus Respiratory exam: Present: normal lung sounds bilaterally. Absent: respiratory distress, wheezes Cardiovascular Exam: Present: regular rate, normal rhythm GI/Abdominal exam: Present: soft. Absent: distended, tenderness Extremities exam: Present: normal inspection, normal capillary refill. Absent: pedal edema Neurological exam: Present: alert, oriented X3, CN II-XII intact. 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 sent in by a medical professional or institution ([facility], [facility], urgent care, hospital, or long-term...) When possible be specific @ -No Did you speak to anyone other than the patient for history (EMS, parent, family, police, friend...)? What history was obtained from this source @ -No Did you review nursing and triage notes (agree or disagree)? Why? @ -I reviewed and agree with nursing and triage notes Were old charts reviewed (outside hosp., previous admission, EMS record, old EKG, old radiological studies, urgent care reports/EKG's, long-term records)? Report findings @ -No old charts were reviewed Differential Chest Pain: Stable Angina, Unstable Angina, STEMI, NSTEMI Aortic Dissection, Pneumothorax, Musculoskeletal, Esophageal Spasm GERD, Cholecystitis, Pancreatitis, Zoster, this is not meant to be an all-inclusive list. EKG interpreted by me (3pts min.). @ -Sinus rhythm rate of 67, UT interval 181, QRS duration 145, QTc [address] segment elevation, right bundle branch block X-rays interpreted by me (1pt min.). @ -Chest x-ray negative for focal pneumonia, no ex. CT interpreted by me (1pt min.). @ -None done U/S interpreted by me (1pt. min.). @ -None done What testing was considered but not performed or refused? (CT, X-rays, U/S, labs)? Why? @ -None What meds were considered but not given or refused? Why? @ -None Did you discuss the management of the patient with other professionals (p rofessionals i.e. , PA, [facility], lab, RT, psych nurse, social group worker, wheel aligner, teacher, job placement officer, family caseworker)? Give summary @Case discussed with Valorie mohamud for [facility] Was smoking cessation discussed for >3mins.? @ -No Was critical care preformed (if so, how long)? @ -No Were there social determinants of health that impacted care today? How? (Homelessness, low income, unemployed, alcoholism, drug addiction, transportation, low edu. Level, literacy, decrease access to med. care, [facility], rehab)? @ -No Was there de-escalation of care discussed even if they declined (Discuss DNR or withdrawal of care, Hospice)? DNR status @ -No What co-morbidities impacted this encounter? (DM, HTN, Smoking, COPD, CAD, Cancer, CVA, ARF, Chemo, Hep., AIDS, mental health diagnosis, sleep apnea, morbid obesity)? @ -Coronary artery disease, diabetes, current smoker Was patient admitted / discharged? Hospital course, mention meds given and route, prescriptions, significant lab abnormalities, going to OR and other pertinent info. @53-year-old male presenting with chest pain over the past several days, intermittent. Patient does report typical features of his pain. EKG is sinus without ST segment elevation. Laboratory testing reveals normal CBC, normal CMP, negative initial troponin. Given the patient's risk factors he will be observed, serial cardiac enzymes have been ordered, cardiology placed on consult. Case discussed with [facility] hospitalist. Undiagnosed new problem with uncertain prognosis? @ -No Drug Therapy requiring intensive monitoring for toxicity (Heparin, Nitro, Insuli n, Cardizem)? @ -No Were any procedures done? @ -No Diagnosis/symptom? @ -Chest pain Acute, or Chronic, or Acute on Chronic? @ -[Acute Uncomplicated (without systemic symptoms) or Complicated (systemic symptoms)? @ -Default Side effects of treatment? @ -No Exacerbation, Progression, or Severe Exacerbation? @ -No Poses a threat to life or bodily function? How? (Chest pain, [place], [place], pneumonia, PE, COPD, DKA, ARF, appy, cholecystitis, CVA, Diverticulitis, Homicidal, Suicidal, threat to staff... and all critical care pts) @ -[Yes, chest pain, ACS - Lab Data Result diagrams: 07/07/24 17:29 07/07/24 17:29 Lab Results 07/07/24 07/07/24 07/07/24 Range/Units 17:29 17:29 17:29 WBC 11.4 H (3.8-10.6) k/uL RBC 6.09 H (4.30-5.90) m/uL Hgb 16.3 (13.0-17.5) gm/dL Hct 50.7 (39.0-53.0) % MCV 83.3 (80.0-100.0) fL MCH 26.7 (25.0-35.0) pg MCHC 32.1 (31.0-37.0) g/dL RDW 14.6 (11.5-15.5) % Plt Count 237 (150-450) k/uL MPV 7.9 Neutrophils % 74 % Lymphocytes % 14 % Monocytes % 6 % Eosinophils % 4 % Basophils % 1 % Neutrophils # 8.4 H (1.3-7.7) k/uL Lymphocytes # 1.6 (1.0-4.8) k/uL Monocytes # 0.7 (0-1.0) k/uL Eosinophils # 0.5 (0-0.7) k/uL Basophils # 0.1 (0-0.2) k/uL Hypochromasia Slight PT 10.2 (10.0-12.5) sec INR 0.9 (<1.2) APTT 22.4 (22.0-30.0) sec Sodium 141 (137-145) mmol/L Potassium 3.8 (3.5-5.1) mmol/L Chloride 103 (98-107) mmol/L Carbon Dioxide 25 (22-30) mmol/L Anion Gap 13 mmol/L BUN 21 H (9-20) mg/dL Creatinine 0.90 (0.66-1.25) mg/dL Est GFR (CKD-EPI)AfAm >90 (>60 ml/min/1.73 sqM) Est GFR (CKD-EPI)NonAf >90 (>60 ml/min/1.73 sqM) Glucose 224 H (74-99) mg/dL Calcium 9.8 (8.4-10.2) mg/dL Magnesium 1.5 L (1.6-2.3) mg/dL Total Bilirubin 0.8 (0.2-1.3) mg/dL AST 25 (17-59) U/L ALT 19 (4-49) U/L Alkaline Phosphatase 80 (38-126) U/L Troponin I (0.000-0.034) ng/mL Total Protein 7.0 (6.3-8.2) g/dL Albumin 4.3 (3.5-5.0) g/dL 07/07/24 Range/Units 17:29 WBC (3.8-10.6) k/uL RBC (4.30-5.90) m/uL Hgb (13.0-17.5) gm/dL Hct (39.0-53.0) % MCV (80.0-100.0) fL MCH (25.0-35.0) pg MCHC (31.0-37.0) g/dL RDW (11.5-15.5) % Plt Count (150-450) k/uL MPV Neutrophils % % Lymphocytes % % Monocytes % % Eosinophils % % Basophils % % Neutrophils # (1.3-7.7) k/uL Lymphocytes # (1.0-4.8) k/uL Monocytes # (0-1.0) k/uL Eosinophils # (0-0.7) k/uL Basophils # (0-0.2) k/uL Hypochromasia PT (10.0-12.5) sec INR (<1.2) APTT (22.0-30.0) sec Sodium (137-145) mmol/L Potassium (3.5-5.1) mmol/L Chloride (98-107) mmol/L Carbon Dioxide (22-30) mmol/L Anion Gap mmol/L BUN (9-20) mg/dL Creatinine (0.66-1.25) mg/dL Est GFR (CKD-EPI)AfAm (>60 ml/min/1.73 sqM) Est GFR (CKD-EPI)NonAf (>60 ml/min/1.73 sqM) Glucose (74-99) mg/dL Calcium (8.4-10.2) mg/dL Magnesium (1.6-2.3) mg/dL Total Bilirubin (0.2-1.3) mg/dL AST (17-59) U/L ALT (4-49) U/L Alkaline Phosphatase (38-126) U/L Troponin I <0.012 (0.000-0.034) ng/mL Total Protein (6.3-8.2) g/dL Albumin (3.5-5.0) g/dL Disposition Clinical Impression: Chest pain Disposition: ADMITTED IP TO THIS HOSP Condition: Stable Is patient prescribed a controlled substance at d/c from ED?: No Referrals: Steve Osorio MD [Primary Care Provider] - 1-2 days Time of Disposition: 19:09
--- NOTE | 2024-07-07 17:48 | XR ---
EXAMINATION TYPE: XR chest 2V DATE OF EXAM: 07/07/2024 5:41 PM CLINICAL INDICATION: Male, 53 years old with history of Chest Pain; [facility] COMPARISON: Chest radiographs from 04/09/2022 TECHNIQUE: XR chest 2V Frontal view of the chest. FINDINGS: Lungs/Pleura: There is no evidence of pleural effusion, focal consolidation, or pneumothorax. Pulmonary vascularity: Unremarkable. Heart/mediastinum: Cardiomediastinal silhouette is unremarkable. Musculoskeletal: No acute osseous pathology. Other findings: None IMPRESSION: Low lung volumes with a generalized hazy appearance which could represent atelectasis versus pulmonar y edema correlate with serum BNP. [facility], , 07/07/2024 5:45 PM
[2024-07-07 17:53] LABS: INR 0.9 (<1.2); Prothrombin Time 10.2 sec (10.0-12.5)
[2024-07-07 17:54] LABS: ALT 19 U/L (4-49); AST 25 U/L (17-59); African American GFR (CKD) >90 (>60 ml/min/1.73 sqM); Albumin 4.3 g/dL (3.5-5.0); Alkaline Phosphatase 80 U/L (38-126); Anion Gap 13 mmol/L; Blood Urea Nitrogen 21 mg/dL (9-20); Calcium 9.8 mg/dL (8.4-10.2); Carbon Dioxide 25 mmol/L (22-30); Chloride 103 mmol/L (98-107); Glucose 224 mg/dL (74-99); Magnesium 1.5 mg/dL (1.6-2.3); Non-African American GFR(CKD) >90 (>60 ml/min/1.73 sqM); Partial Thromboplastin Time 22.4 sec (22.0-30.0); Potassium 3.8 mmol/L (3.5-5.1); Sodium 141 mmol/L (137-145); Total Bilirubin 0.8 mg/dL (0.2-1.3)
[2024-07-07] MEDS ORDERED: ONDANSETRON 4 MG/2 ML VIAL IVP PRN (19:05)
[2024-07-07] MEDS ORDERED: ACETAMINOPHEN TAB 325 MG TAB PO PRN (19:05)
[2024-07-07] MEDS ORDERED: NALOXONE 0.4 MG/ML 1 ML VIAL IV PRN (19:05)
[2024-07-07] MEDS: MAGNESIUM SULFATE-D5W PMX 1 GM in DEXTROSE/WATER 1 100ML.BAG IVPB ONE (19:38)
[2024-07-07] MEDS: ASPIRIN 325 MG TAB PO STA (19:39)
[2024-07-07] MEDS: MORPHINE SULFATE 4 MG/ML SYRINGE IV PRN (19:54)
[2024-07-07] MEDS: NITROGLYCERIN SL TABS 0.4 MG TAB SUBLINGUAL PRN (23:38)
[2024-07-08] MEDS ORDERED: DEXTROSE 50% SYRINGE 50 ML IVP PRN ×2 (00:23)
[2024-07-08] MEDS: MORPHINE SULFATE ER 15 MG TABLET PO SCH (00:33)
[2024-07-08] MEDS: oxyCODONE-APAP 10-325MG 1 EACH TAB PO PRN (00:51)
[2024-07-08] MEDS: amLODIPine 5 MG TAB PO SCH (00:51)
[2024-07-08] MEDS: glipiZIDE 10 MG TAB PO SCH (00:51)
[2024-07-08] MEDS: carvediloL 12.5 MG TAB PO SCH (00:51)
[2024-07-08] MEDS: hydrALAZINE HCL 50 MG TAB PO SCH (00:51)
[2024-07-08] MEDS: ATORVASTATIN 80 MG TAB PO SCH (00:52)
[2024-07-08] MEDS: NITROGLYCERIN OINT 1 INCH/GM PACKET TOPICAL SCH (00:52)
[2024-07-08] MEDS: metFORMIN 500 MG TAB PO SCH (01:48)
[2024-07-08] MEDS: INSULIN ASPART (NovoLOG) 100 UNIT/ML VIAL SQ SCH (06:23)
[2024-07-08] MEDS ORDERED: HEPARIN SODIUM,PORCINE (1 ML) 2,500 UNIT in SODIUM CHLORIDE 0.9% 250 ML IRRIGATION PRN (07:00)
[2024-07-08] MEDS ORDERED: HEPARIN SODIUM,PORCINE 10,000 UNIT in SODIUM CHLORIDE 0.9% 1,000 ML IRRIGATION PRN (07:00)
[2024-07-08] MEDS ORDERED: ALPRAZolam 0.25 MG TAB PO PRN (07:51)
[2024-07-08] MEDS ORDERED: ALPRAZolam 0.5 MG TAB PO PRN (07:51)
[2024-07-08] MEDS ORDERED: NITROGLYCERIN SL TABS 0.4 MG TAB SUBLINGUAL PRN (07:51)
[2024-07-08] MEDS: LOSARTAN 50 MG TAB PO SCH (08:22)
[2024-07-08] MEDS: ASPIRIN 325 MG TAB PO STA (08:22)
[2024-07-08] MEDS: ATORVASTATIN 80 MG TAB PO STA (08:22)
[2024-07-08] MEDS ORDERED: ATORVASTATIN 80 MG TAB PO SCH (09:00)
--- NOTE | 2024-07-08 10:06 | P.CRDCN ---
History of Present Illness Consult date: 07/08/24 Consult reason: chest pain History of present illness: This is a 53-year-old male patient of Dr. Ha with past medical history of multivessel CAD with previous angioplasty, mixed hyperlipidemia, diabetes mellitus type 2, hypertension, tobacco use. Patient was last seen in the office on 02/14/2024 and at that time he was to follow-up in 6-month, lipid panel ordered and tobacco cessation counseled. We have been asked to evaluate the patient for chest pain. Patient has developed chest pain precordial with left arm discomfort as well. He is noted to have EKG abnormalities which were present on previous EKG. Discussed options with the patient and he is agreeable to move forward with cardiac catheterization today. Blood pressure 120/73, heart rate 61, pulse ox 96% on room air. EKG: Sinus rhythm, right bundle branch block Chest x-ray: Low lung volumes with generalized hazy appearance that could represent atelectasis versus pulmonary edema. Laboratory studies: WBC 11.4, hemoglobin 16.3. Electrolytes are normal. Creatinine 0.9. Troponin negative x 3. Glucose 224. Home cardiac medications: Amlodipine 5 mg at bedtime, Lipitor 80 mg daily, Coreg 25 mg twice daily, hydralazine 50 mg twice daily, losartan 100 mg daily, Maxide 37.5-25 mg daily, patient is also on Mounjaro. Most recent cardiac catheterization was performed on 04/09/2022 which revealed progressive disease of the mid first diagonal, patent stent in the LAD and RCA, no progression of disease in the ostium of the first diagonal and right PDA, right dominance. Patient underwent successful stenting of the first diagonal branch. Patient had significant spasm of the radial artery. Echocardiogram performed 04/11/2022 revealed normal EF Review Of Systems: At the time of my exam: CONSTITUTIONAL: Denies fever or chills. HEENT: Denies blurred vision, vision changes, or eye pain. Denies hemoptysis CARDIOVASCULAR: Denies chest pain. Denies orthopnea. Denies PND. Denies palpitations RESPIRATORY: Denies shortness of breath. GASTROINTESTINAL: Denies abdominal pain. Denies nausea or vomiting. HEMATOLOGIC: Denies bleeding disorders. GENITOURINARY: Denies any blood in urine. SKIN: Denies puritis. Denies rash. Physical examination: Gen: This is a 53-year-old male in no acute distress VS: reviewed HEENT: Head is atraumatic, normocephalic. Pupils equal, round. Sclerae is anicteric. NECK: Supple. No JVD. LUNGS: Clear to auscultation. No wheezes or rhonchi. No intercostal retractions. HEART: Regular rate and rhythm. No murmur. ABDOMEN: Soft No tenderness. EXTREMITIES: No pedal edema. No calf tenderness. NEUROLOGICAL: Patient is awake, alert and oriented x3. Assessment: Unstable angina History of multivessel coronary artery disease with previous angioplasty Mixed hyperlipidemia Diabetes mellitus type 2 Hypertension Tobacco use Plan: Resume patient's home cardiac medications Schedule patient for cardiac catheterization today with Dr. Ha Obtain 2-D echocardiogram and Doppler study to assess cardiac structure and function Further recommendations to follow based upon clinical course Thank you kindly for this consultation. Nurse practitioner note has been reviewed, I agree with documented findings and plan of care. Patient was seen and examined. Past Medical History Past Medical History: Chest Pain / Angina, Diabetes Mellitus, GERD/Reflux, Hypertension, Myocardial Infarction ([place]), Syncope Additional Past Medical History / Comment(s): NIDDM type II, hiatal hernia, ne phrolithiasis, chronic low back pain, bilateral leg numbness, R great toe diabetic foot ulcer, past left olecranon bursitis, osteomyelitis in L4-L5 w/abx treatment via PICC line (2017), managed by dr tran. Last Myocardial Infarction Date:: 2021 History of Any Multi-Drug Resistant Organisms: MRSA Date of last positivie culture/infection: 05/16/23 MDRO Source:: right Lower Leg Past Surgical History: Appendectomy, Cholecystectomy, Heart Catheterization, Heart Catheterization With Stent, Orthopedic Surgery Additional Past Surgical History / Comment(s): RENAL ANGIOGRAM 2005 for HTN, cardiac cath 2005, LT WRIST TENDON REPAIR 2013, RT ROTATOR CUFF REPAIR, bilateral knee arthroscopies, I&D L axillae, PICC LINES REMOVED. [address] Ha in December of 2018 Past Anesthesia/Blood Transfusion Reactions: No Reported Reaction Date of Last Stent Placement:: 12/2018 Past Psychological History: No Psychological Hx Reported Additional Psychological History / Comment(s): Pt resides with his spouse and 3 children. Smoking Status: Current every day smoker Past Alcohol Use History: None Reported Additional Past Alcohol Use History / Comment(s): reports quarter pack per day Past Drug Use History: None Reported - Past Family History Father Family Medical History: Coronary Artery Disease (CAD), Diabetes Mellitus, Hypertension Additional Family Medical History / Comment(s): pt. reports his father had a four vessel CABG Mother Family Medical History: Cancer, Hypertension Additional Family Medical History / Comment(s): LUNG CANCER(NON SMOKER) Medications and Allergies Home Medications Medication Instructions Recorded Confirmed Type Atorvastatin [Lipitor] 80 mg PO DAILY 11/11/18 07/07/24 History glipiZIDE [Glucotrol] 10 mg PO BID 01/05/19 07/07/24 History Triamterene-Hctz 37.5-25Mg 1 tab PO DAILY 01/23/19 07/07/24 History [Maxzide 37.5-25] carvediloL [Coreg] 25 mg PO BID 05/11/19 07/07/24 History amLODIPine [Norvasc] 5 mg PO HS 07/21/20 07/07/24 History hydrALAZINE HCL [Apresoline] 50 mg PO BID 07/21/20 07/07/24 History oxyCODONE-APAP 10-325MG [Percocet 1 tab PO TID PRN 07/21/20 07/07/24 History 10-325 mg] metFORMIN HCL [Glucophage] 1,000 mg PO BID 04/09/22 07/07/24 History Losartan Potassium 100 mg PO DAILY 05/13/23 07/07/24 History Morphine Sulfate ER [Ms Contin] 15 mg PO Q12HR 07/07/24 07/07/24 History Tirzepatide [Mounjaro] 2.5 mg SQ MO 07/07/24 07/07/24 History Allergies Allergy/AdvReac Type Severity Reaction Status Date / Time vancomycin Allergy Rash/Hives Verified 07/07/24 19:06 Physical Exam Vitals: Vital Signs Temp Pulse Pulse Pulse Resp BP BP 07/08/24 09:46 07/08/24 07:00 98.0 F 61 16 120/73 07/08/24 00:11 97.9 F 55 L 18 153/98 07/07/24 23:47 55 L 14 131/82 07/07/24 21:40 60 19 143/72 07/07/24 21:00 64 17 130/61 07/07/24 17:37 64 07/07/24 17:32 65 18 169/100 07/07/24 17:17 97.8 F 64 16 169/92 Pulse Ox 07/08/24 09:46 93 L 07/08/24 07:00 96 07/08/24 00:11 96 07/07/24 23:47 96 07/07/24 21:40 97 07/07/24 21:00 96 07/07/24 17:37 07/07/24 17:32 99 07/07/24 17:17 99 Intake and Output 07/07/24 07/08/24 07/08/24 22:59 06:59 14:59 Intake Total 0 0 Balance 0 0 Intake: Oral 0 0 Other: Voiding Method Toilet # Voids 1 2 Weight 108.862 kg 108.862 kg Results 07/07/24 17:29 07/07/24 17:29 Cardiac Enzymes 07/07/24 07/07/24 07/07/24 Range/Units 17:29 17:29 20:22 AST 25 (17-59) U/L Troponin I <0.012 <0.012 (0.000-0.034) ng/mL 07/07/24 Range/Units 23:40 AST (17-59) U/L Troponin I <0.012 (0.000-0.034) ng/mL Coagulation 07/07/24 Range/Units 17:29 PT 10.2 (10.0-12.5) sec APTT 22.4 (22.0-30.0) sec CBC 07/07/24 Range/Units 17:29 WBC 11.4 H (3.8-10.6) k/uL RBC 6.09 H (4.30-5.90) m/uL Hgb 16.3 (13.0-17.5) gm/dL Hct 50.7 (39.0-53.0) % Plt Count 237 (150-450) k/uL Comprehensive Metabolic Panel 07/07/24 Range/Units 17:29 Sodium 141 (137-145) mmol/L Potassium 3.8 (3.5-5.1) mmol/L Chloride 103 (98-107) mmol/L Carbon Dioxide 25 (22-30) mmol/L BUN 21 H (9-20) mg/dL Creatinine 0.90 (0.66-1.25) mg/dL Glucose 224 H (74-99) mg/dL Calcium 9.8 (8.4-10.2) mg/dL AST 25 (17-59) U/L ALT 19 (4-49) U/L Alkaline Phosphatase 80 (38-126) U/L Total Protein 7.0 (6.3-8.2) g/dL Albumin 4.3 (3.5-5.0) g/dL Current Medications Generic Name Dose Route Start Last Admin Trade Name Freq PRN Reason Stop Dose Admin Acetaminophen 650 mg 07/07/24 19:05 Acetaminophen Tab 325 Mg Tab PO Q6HR PRN Mild Pain or Fever > 100.5 Alprazolam 0.25 mg 07/08/24 07:51 Alprazolam 0.25 Mg Tab PO Q6HR PRN Mild Anxiety Alprazolam 0.5 mg 07/08/24 07:51 Alprazolam 0.5 Mg Tab PO Q6HR PRN Moderate Anxiety Amlodipine Besylate 5 mg 07/08/24 00:30 07/08/24 00:51 Amlodipine 5 Mg Tab PO 5 mg HS ROSY Administration Atorvastatin Calcium 80 mg 07/08/24 01:00 07/08/24 00:52 Atorvastatin 80 Mg Tab PO 80 mg HS ROSY Administration Carvedilol 25 mg 07/08/24 00:30 07/08/24 08:22 Carvedilol 12.5 Mg Tab PO 25 mg BID ROSY Administration Dextrose/Water 25 ml 07/08/24 00:23 Dextrose 50% Syringe 50 Ml IVP PER PROTOCOL PRN Hypoglycemia Protocol Dextrose/Water 50 ml 07/08/24 00:23 Dextrose 50% Syringe 50 Ml IVP PER PROTOCOL PRN Hypoglycemia Protocol Glipizide 10 mg 07/08/24 00:30 07/08/24 08:22 Glipizide 10 Mg Tab PO 10 mg BID ROSY Administration Hydralazine HCl 50 mg 07/08/24 00:30 07/08/24 08:22 Hydralazine Hcl 50 Mg Tab PO 50 mg BID ROSY Administration Heparin Sodium (Porcine) 10, 1,001 mls @ 999 mls/hr 07/08/24 07:00 000 unit/ Sodium Chloride IRRIGATION 07/08/24 23:00 ONCE PRN INTRA-OP Heparin Sodium (Porcine) 2,500 250.5 mls @ 250 mls/hr 07/08/24 07:00 unit/ Sodium Chloride IRRIGATION 07/08/24 23:00 ONCE PRN INTRA-OP Sodium Chloride 1,000 mls @ 75 mls/hr 07/08/24 08:00 Saline 0.9% IV .[id number] [facility] Insulin Aspart 0 unit 07/08/24 07:30 07/08/24 06:23 Insulin Aspart (Novolog) 100 Unit/Ml Vial SQ 4 unit ACHS [facility] Administration Protocol Losartan Potassium 100 mg 07/08/24 09:00 07/08/24 08:22 Losartan 50 Mg Tab PO 100 mg DAILY [facility] Administration Metformin HCl 1,000 mg 07/08/24 07:30 07/08/24 01:48 Metformin 500 Mg Tab PO Not Given BID-W/MEALS [facility] Morphine Sulfate 4 mg 07/07/24 19:05 07/07/24 23:37 Morphine Sulfate 4 Mg/Ml Syringe IV 4 mg Q4HR PRN Administration Severe Pain (Scale 7 to 10) Morphine Sulfate 15 mg 07/08/24 00:30 07/08/24 08:23 Morphine Sulfate Er 15 Mg Tablet PO Not Given Q12HR [facility] Protocol Naloxone HCl 0.2 mg 07/07/24 19:05 Naloxone 0.4 Mg/Ml 1 Ml Vial IV Q2M PRN Opioid Reversal Nitroglycerin 0.4 mg 07/07/24 19:06 07/07/24 23:38 Nitroglycerin Sl Tabs 0.4 Mg Tab SUBLINGUAL 0.4 mg Q5M PRN Administration Chest Pain Nitroglycerin 0.5 inch 07/08/24 00:30 07/08/24 06:23 Nitroglycerin Oint 1 Inch/Gm Packet TOPICAL 0.5 inch Q6HR [facility] Administration Nitroglycerin 0.4 mg 07/08/24 07:51 Nitroglycerin Sl Tabs 0.4 Mg Tab SUBLINGUAL Q5M PRN Chest Pain Ondansetron HCl 4 mg 07/07/24 19:05 Ondansetron 4 Mg/2 Ml Vial IVP Q8HR PRN Nausea And Vomiting Oxycodone/Acetaminophen 1 each 07/08/24 00:21 07/08/24 08:07 Oxycodone-Apap 10-325mg 1 Each Tab PO 1 each TID PRN Administration Pain Triamterene/Hydrochlorothiazide 1 each 07/08/24 09:00 Triamterene-Hctz 37.5-25mg 1 Each Cap PO DAILY ROSY Intake and Output 07/07/24 07/08/24 07/08/24 22:59 06:59 14:59 Intake Total 0 0 Balance 0 0 Intake: Oral 0 0 Other: Voiding Method Toilet # Voids 1 2 Weight 108.862 kg 108.862 kg 07/07/24 17:29 07/07/24 17:29
[2024-07-08] MEDS: SODIUM CHLORIDE 0.9% 1,000 ML IV SCH ×2 (10:21→13:56)
[2024-07-08] MEDS: HEPARIN SODIUM,PORCINE 10,000 UNIT in SODIUM CHLORIDE 0.9% 1,000 ML IRRIGATION ONE (12:09)
[2024-07-08] MEDS: SODIUM CHLORIDE 0.9% 1,000 ML IV ONE (12:09)
[2024-07-08] MEDS: HEPARIN SODIUM,PORCINE (1 ML) 2,500 UNIT in SODIUM CHLORIDE 0.9% 250 ML IRRIGATION ONE (12:09)
[2024-07-08] MEDS: fentaNYL (PF) 50 MCG/ML 2 ML AMP IVP ONE (12:23)
[2024-07-08] MEDS: LIDOCAINE 1% INJ 10MG/ML (20 ML MDV) SQ ONE (12:25)
[2024-07-08] MEDS: MIDAZOLAM 2 MG/2 ML VIAL IVP ONE (12:25)
[2024-07-08] MEDS: VERAPAMIL SYRINGE (5 MG/10 ML) INTRAARTER ONE (12:27)
[2024-07-08] MEDS: HEPARIN SODIUM 1,000 UN/ML (10ML VL) IVP ONE (12:30)
[2024-07-08] MEDS: IOPAMIDOL-370 100ML BTL INJ ONE (12:37)
[2024-07-08] MEDS ORDERED: RX INFO: IV CONTRAST WAS GIVEN 1 EACH MISC MISCELLANE PRN (12:58)
--- NOTE | 2024-07-08 13:05 | P.CARDCATH ---
Date of Procedure: 07/08/24 Description of Procedure: Cardiac Catheterization: The patient is a 53-year-old male with known history of diabetes, hypertension, hyperlipidemia, multivessel stenting who presented with an episode of chest discomfort with no new electrocardiographic changes and normal enzymes. He was evaluated by Dr. Cruz. Recommendations were made regarding cardiac catheterization, the risks and the complications were discussed with the patient who is in full understanding and agreement. 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 Using Xylocaine Anesthesia and modified Seldinger technique, a 6-Swazi sheath was introduced in the left radial artery . Subsequently, selective coronary angiography was performed using a 5-Swazi 4 bend Miri catheter. Multiple views of the coronary artery including hemiaxial views were obtained. The 6 Swazi pigtail catheter was used to cross the aortic valve and LVEDP was calculated. Following that, catheter and sheath were removed. Hemostasis was obtained with deployment of vascular band . There was no immediate complication. Patient was returned to room in stable condition. Of note, the patient received a total of 5000 units of intravenous heparin as well as intra-arterial verapamil. Findings: Left main: This is a large size vessel, bifurcating into LAD and left circumflex, left main has no high-grade stenosis LAD: This is a large size vessel, reaching to the apex with a wraparound apex segment giving rise to a moderately sized diagonal branch in the midsegment. The LAD stented segment in the proximal area has a 30 to 40% in-stent restenosis. The diagonal branch has a 60 to 70% stenosis at the takeoff with no progression compared with the images performed in the past the stent in the mid to distal diagonal branch is patent with a 50 to 60% in-stent restenosis the vessel beyond that is small in caliber Left circumflex: This is a nondominant vessel, small in caliber, giving rise to 2 obtuse marginal branch. After the takeoff of the first obtuse marginal branch the vessel has a 90% stenosis with no progression compared to the images obtained in the past and the vessel beyond that is very small in caliber RCA: This is a large dominant vessel, bifurcating distally to PDA and PLV. The proximal and mid segment of the RCA are stented with mild intimal in-stent restenosis of 20 to 30%. The distal RCA has a 30 to 40% plaque the stented segment in the PLV is patent with no significant in-stent restenosis Left Ventriculogram: Not performed Hemodynamics: There was no gradient across aortic valve, LVEDP was 5-8 mmHg Conclusion: 1. 60 to 70% stenosis in the ostium of the first diagonal branch and moderate in-stent restenosis of the mid diagonal branch. The ostium has not progressed compared to the old images. The vessel beyond the stent is small in caliber 2. Significant disease in the small left circumflex with no progression of disease 3. Mild in-stent restenosis of the RCA and the left anterior descending artery 4. Right dominance Recommendations: In view of the anatomy I have recommended to maximize medical therapy with the addition of Ranexa. The diagonal branch territory beyond the stent to small in the ostium has not progressed. The left circumflex has not progressed either. The findings and the recommendations were discussed with the patient and the family and they were in full understanding and agreement. Duration of sedation is 20 minutes.
[2024-07-08] MEDS: TRIAMTERENE-HCTZ 37.5-25MG 1 EACH CAP PO SCH (13:51)
[2024-07-08] MEDS: RANOLAZINE 500 MG TAB.ER.12H PO SCH (13:51)
--- NOTE | 2024-07-08 13:52 | P.HPIM ---
History of Present Illness H&P Date: 07/08/24 This is a 53-year-old male with medical history significant for coronary artery disease with prior cardiac stenting, diabetes mellitus type 2, smoker. Patient comes in with complaints of chest pain ongoing over the last 3 days. Patient will require nitroglycerin and Cipro for pain with relief with this. Impending radiation down the left arm and associated nausea. Troponin level, negative x 3. Chest x-ray reveals low lung volumes with a generalized hazy appearance which could represent atelectasis versus pulmonary edema and correlate with a serum BNP. EKG reveals normal sinus rhythm heart rate of 65 with a right bundle branch block. Patient was admitted to the hospital with a cardiology consultation. Will be going for a cardiac catheterization today. REVIEW OF SYSTEMS: CONSTITUTIONAL: No fever, no malaise, no fatigue. HEENT: No recent visual problems or hearing problems. Denied any sore throat. CARDIOVASCULAR: No chest pain, orthopnea, PND, no palpitations, no syncope. PULMONARY: No shortness of breath, no cough, no hemoptysis. GASTROINTESTINAL: No diarrhea, no nausea, no vomiting, no abdominal pain. NEUROLOGICAL: No headaches, no weakness, no numbness. HEMATOLOGICAL: Denies any bleeding or petechiae. GENITOURINARY: Denies any burning micturition, frequency, or urgency. MUSCULOSKELETAL/RHEUMATOLOGICAL: Denies any joint pain, swelling, or any muscle pain. ENDOCRINE: Denies any polyuria or polydipsia. The rest of the 14-point review of systems is negative. PHYSICAL EXAMINATION: GENERAL: The patient is alert and oriented x3, not in any acute distress. Well developed, well nourished. HEENT: Pupils are round and equally reacting to light. EOMI. No scleral icterus. No conjunctival pallor. Normocephalic, atraumatic. No pharyngeal erythema. No thyromegaly. CARDIOVASCULAR: S1 and S2 present. No murmurs, rubs, or gallops. PULMONARY: Chest is clear to auscultation, no wheezing or crackles. ABDOMEN: Soft, nontender, nondistended, normoactive bowel sounds. No palpable organomegaly. MUSCULOSKELETAL: No joint swelling or deformity. EXTREMITIES: No cyanosis, clubbing, or pedal edema. NEUROLOGICAL: Gross neurological examination did not reveal any focal deficits. SKIN: No rashes. Assessment Acute chest pain due to unstable angina History of coronary artery disease with multiple cardiac stents in the past maintained on Continue tobacco use Diabetes Mellitus type 2 with hyperglycemia Hyperlipidemia Hypertension Obesity GI prophylaxis Full Code Plan Resume appropriate home medications Hold metformin start novolog sliding scale with ACHS accuchecks and metformin will need to be hold 48 hours post cath Patient continues on IV heparin and awaiting cardiac catheterization with further recommendations to follow. Continue monitoring on cardiac telemetry Discussed smoking cessation The impression and plan of care has been dictated by Valorie Nichols Nurse Practitioner as directed. Dr. Gilmar MD I have performed a history and physical examination and medical decision making of this patient, discussed the same with the dictator, and agree with the dictators assessment and plan as written, documented as a scribe. Based on total visit time, I have performed more than 50% of this visit. Past Medical History Past Medical History: Chest Pain / Angina, Diabetes Mellitus, GERD/Reflux, H ypertension, Myocardial Infarction ([place]), Syncope Additional Past Medical History / Comment(s): NIDDM type II, hiatal hernia, nephrolithiasis, chronic low back pain, bilateral leg numbness, R great toe diabetic foot ulcer, past left olecranon bursitis, osteomyelitis in L4-L5 w/abx treatment via PICC line (2018), managed by dr tran. Last Myocardial Infarction Date:: 2021 History of Any Multi-Drug Resistant Organisms: MRSA Date of last positivie culture/infection: 05/16/23 MDRO Source:: right Lower Leg Past Surgical History: Appendectomy, Cholecystectomy, Heart Catheterization, Heart Catheterization With Stent, Orthopedic Surgery Additional Past Surgical History / Comment(s): RENAL ANGIOGRAM 2005 for HTN, cardiac cath 2005, LT WRIST TENDON REPAIR 2013, RT ROTATOR CUFF REPAIR, bilateral knee arthroscopies, I&D L axillae, PICC LINES REMOVED. [address] Ha in December of 2018 Past Anesthesia/Blood Transfusion Reactions: No Reported Reaction Date of Last Stent Placement:: 12/2018 Past Psychological History: No Psychological Hx Reported Additional Psychological History / Comment(s): Pt resides with his spouse and 3 children. Smoking Status: Current every day smoker Past Alcohol Use History: None Reported Additional Past Alcohol Use History / Comment(s): reports quarter pack per day Past Drug Use History: None Reported - Past Family History Father Family Medical History: Coronary Artery Disease (CAD), Diabetes Mellitus, Hypertension Additional Family Medical History / Comment(s): pt. reports his father had a f our vessel CABG Mother Family Medical History: Cancer, Hypertension Additional Family Medical History / Comment(s): LUNG CANCER(NON SMOKER) Medications and Allergies Home Medications Medication Instructions Recorded Confirmed Type Atorvastatin [Lipitor] 80 mg PO DAILY 11/11/18 07/07/24 History glipiZIDE [Glucotrol] 10 mg PO BID 01/05/19 07/07/24 History Triamterene-Hctz 37.5-25Mg 1 tab PO DAILY 01/23/19 07/07/24 History [Maxzide 37.5-25] carvediloL [Coreg] 25 mg PO BID 05/11/19 07/07/24 History amLODIPine [Norvasc] 5 mg PO HS 07/21/20 07/07/24 History hydrALAZINE HCL [Apresoline] 50 mg PO BID 07/21/20 07/07/24 History oxyCODONE-APAP 10-325MG [Percocet 1 tab PO TID PRN 07/21/20 07/07/24 History 10-325 mg] metFORMIN HCL [Glucophage] 1,000 mg PO BID 04/09/22 07/07/24 History Losartan Potassium 100 mg PO DAILY 05/13/23 07/07/24 History Morphine Sulfate ER [Ms Contin] 15 mg PO Q12HR 07/07/24 07/07/24 History Tirzepatide [Mounjaro] 2.5 mg SQ MO 07/07/24 07/07/24 History Allergies Allergy/AdvReac Type Severity Reaction Status Date / Time vancomycin Allergy Rash/Hives Verified 07/07/24 19:06 Physical Exam Vitals: Vital Signs Temp Pulse Pulse Pulse Resp BP BP 07/08/24 09:46 07/08/24 07:00 98.0 F 61 16 120/73 07/08/24 00:11 97.9 F 55 L 18 153/98 07/07/24 23:47 55 L 14 131/82 07/07/24 21:40 60 19 143/72 07/07/24 21:00 64 17 130/61 07/07/24 17:37 64 07/07/24 17:32 65 18 169/100 07/07/24 17:17 97.8 F 64 16 169/92 Pulse Ox 07/08/24 09:46 93 L 07/08/24 07:00 96 07/08/24 00:11 96 07/07/24 23:47 96 07/07/24 21:40 97 07/07/24 21:00 96 07/07/24 17:37 07/07/24 17:32 99 07/07/24 17:17 99 Intake and Output 07/07/24 07/08/24 07/08/24 22:59 06:59 14:59 Intake Total 0 0 100 Balance 0 0 100 Intake: IV 100 Oral 0 0 Other: Voiding Method Toilet # Voids 1 2 Weight 108.862 kg 108.862 kg Results CBC & Chem 7: 07/07/24 17:29 07/07/24 17:29 Labs: Abnormal Lab Results - Last 24 Hours (Table) 07/07/24 07/07/24 Range/Units 17:29 17:29 WBC 11.4 H (3.8-10.6) k/uL RBC 6.09 H (4.30-5.90) m/uL Neutrophils # 8.4 H (1.3-7.7) k/uL BUN 21 H (9-20) mg/dL Glucose 224 H (74-99) mg/dL Magnesium 1.5 L (1.6-2.3) mg/dL Assessment and Plan Time with Patient: Less than 30
[2024-07-09] MEDS: ASPIRIN 81 MG PO SCH (07:51)
[2024-07-09 09:03] VITALS: RESP 17; TEMP 98.4
[2024-07-09 09:30] LABS: African American GFR (CKD) 87 (>60 ml/min/1.73 sqM); Anion Gap 7 mmol/L; Blood Urea Nitrogen 21 mg/dL (9-20); Calcium 8.9 mg/dL (8.4-10.2); Carbon Dioxide 32 mmol/L (22-30); Chloride 102 mmol/L (98-107); Glucose 309 mg/dL (74-99); Non-African American GFR(CKD) 75 (>60 ml/min/1.73 sqM); Potassium 3.7 mmol/L (3.5-5.1); Sodium 141 mmol/L (137-145)
--- NOTE | 2024-07-09 11:07 | CA ---
Transthoracic Echo Report Name: Jeet Gonzalez Age: 53 Gender: M : 1970 Exam Date: 07/09/2024 09:24 Exam Location: [facility] Ht (in): 75 Wt (lb): 240 Ordering Physician: Radha Gonzalez Attending/Referring Phys: [id number], Carlos [employer] Analyst Keeley Jesus RDCS Procedure CPT: Indications: LVF, Unspecified systolic (congestive) heart failure Cardiac Hx: Technical Quality: Technically difficult study Contrast 1: Definity Total Dose (mL): 2 Contrast 2: Total Dose (mL): MEASUREMENTS (Male / Female) Normal Values 2D ECHO LV Diastolic Diameter PLAX 5.6 cm 4.2 - 5.9 / 3.9 - 5.3 cm LV Systolic Diameter PLAX 3.8 cm IVS Diastolic Thickness 1.1 cm 0.6 - 1.0 / 0.6 - 0.9 cm LVPW Diastolic Thickness 1.0 cm 0.6 - 1.0 / 0.6 - 0.9 cm LV Relative Wall Thickness 0.4 LVOT Diameter 2.0 cm LA Volume 63.9 cm??? 18 - 58 / 22 - 52 cm??? LA Volume Index 26.4 cm???/m??? 16 - 28 cm???/m??? Ascending Aorta Diameter 3.9 cm DOPPLER AV Peak Velocity 145.0 cm/s AV Peak Gradient 8.4 mmHg AV Mean Velocity 92.6 cm/s AV Mean Gradient 4.0 mmHg AV Velocity Time Integral 29.9 cm LVOT Peak Velocity 115.1 cm/s LVOT Peak Gradient 5.3 mmHg LVOT Velocity Time Integral 26.3 cm LVOT Stroke Volume 79.7 cm??? LVOT Stroke Volume Index 33.6 ml/m??? LVOT Cardiac Index 1940.8 cm???/min???m??? AV Area Cont Eq vti 2.7 cm??? AV Area Cont Eq pk 2.4 cm??? MV Area PHT 3.7 cm??? Mitral E Point Velocity 62.4 cm/s Mitral A Point Velocity 49.1 cm/s Mitral E to A Ratio 1.3 MV Deceleration Time 207.0 ms PV Peak Velocity 98.2 cm/s PV Peak Gradient 3.9 mmHg FINDINGS Left Ventricle Left ventricular ejection fraction is estimated at 55-60 %. Mildly increased septal wall thickness. Left ventricular cavity size normal. No obvious regional wall motion abnormalities. Right Ventricle Normal right ventricular size and function. Unable to estimate the right ventricular systolic pressure. Right Atrium Normal right atrial size. Left Atrium Mildly increased left atrial volume. Mitral Valve Structurally normal mitral valve. No mitral stenosis, regurgitation or prolapse. Aortic Valve Trileaflet aortic valve. No aortic valve stenosis or regurgitation. Tricuspid Valve Structurally normal tricuspid valve. No tricuspid stenosis, regurgitation or prolapse. Pulmonic Valve Structurally normal pulmonic valve. No pulmonic stenosis. Trace pulmonic regurgitation. Pericardium No pericardial effusion. Aorta Normal size aortic root and proximal ascending aorta. CONCLUSIONS Left ventricular ejection fraction is estimated at 55-60 %. No obvious regional wall motion abnormalities. Normal RV size and systolic function No significant valvular dysfunction No significant difference when compared to prior echo from 04/2022 Previewed by: Dr Steven Magana (Electronically Signed) Final Date: 09 July 2024 11:06
[2024-07-09 11:08] VITALS: BMI 29.9
--- NOTE | 2024-07-09 13:49 | P.PN ---
Subjective Progress Note Date: 07/09/24 Consult reason: chest pain History of present illness: This is a 53-year-old male patient of Dr. Ha with past medical history of multivessel CAD with previous angioplasty, mixed hyperlipidemia, diabetes mellitus type 2, hypertension, tobacco use. Patient was last seen in the office on 02/14/2024 and at that time he was to follow-up in 6-month, lipid panel ordered and tobacco cessation counseled. We have been asked to evaluate the patient for chest pain. Patient has developed chest pain precordial with left arm discomfort as well. He is noted to have EKG abnormalities which were present on previous EKG. Discussed options with the patient and he is agreeable to move forward with cardiac catheterization today. Blood pressure 120/73, heart rate 61, pulse ox 96% on room air. EKG: Sinus rhythm, right bundle branch block Chest x-ray: Low lung volumes with generalized hazy appearance that could represent atelectasis versus pulmonary edema. Laboratory studies: WBC 11.4, hemoglobin 16.3. Electrolytes are normal. Creatinine 0.9. Troponin negative x 3. Glucose 224. Home cardiac medications: Amlodipine 5 mg at bedtime, Lipitor 80 mg daily, Coreg 25 mg twice daily, hydralazine 50 mg twice daily, losartan 100 mg daily, Maxide 37.5-25 mg daily, patient is also on Mounjaro. Most recent cardiac catheterization was performed on 04/09/2022 which revealed progressive disease of the mid first diagonal, patent stent in the LAD and RCA, no progression of disease in the ostium of the first diagonal and right PDA, right dominance. Patient underwent successful stenting of the first diagonal branch. Patient had significant spasm of the radial artery. Echocardiogram performed 04/11/2022 revealed normal EF 10 Yesterday, patient underwent cardiac catheterization with Dr. Ha which revealed 60 to 70% stenosis in the ostium of the first diagonal branch and moderate in-stent restenosis of the mid diagonal branch. The ostium has not progressed compared to the old images. The vessel beyond the stent is small in caliber. Significant disease in the small left circumflex with no progression of disease. Mild in-stent restenosis of the RCA and LAD. Right dominance. Patient was started on Ranexa. Echocardiogram reveals EF of 55 to 60%. Echocardiogram report reviewed with the patient. Blood pressure 150/88, heart rate 55, pulse ox 97% on room air. Previous blood pressure readings have been well-controlled. Repeat blood work reveals BUN 21 creatinine 1.11. Physical examination: Gen: This is a 53-year-old male in no acute distress VS: reviewed HEENT: Head is atraumatic, normocephalic. Pupils equal, round. Sclerae is anicteric. NECK: Supple. No JVD. LUNGS: Clear to auscultation. No wheezes or rhonchi. No intercostal ret ractions. HEART: Regular rate and rhythm. No murmur. ABDOMEN: Soft No tenderness. EXTREMITIES: No pedal edema. No calf tenderness. NEUROLOGICAL: Patient is awake, alert and oriented x3. Assessment: Unstable angina History of multivessel coronary artery disease with previous angioplasty Mixed hyperlipidemia Diabetes mellitus type 2 Hypertension Tobacco use Plan: Continue patient's home cardiac medications including Ranexa at discharge Patient is cleared for discharge and may follow-up with Dr. Ha in 1 week Nurse practitioner note has been reviewed, I agree with documented findings and plan of care. Patient was seen and examined. Objective - Vital Signs Vital signs: Vital Signs Temp 98.4 F 07/09/24 07:10 Pulse 55 L 07/09/24 07:10 Resp 17 07/09/24 07:10 BP 150/88 07/09/24 07:10 Pulse Ox 96 07/09/24 08:42 FiO2 Intake & Output 07/08/24 07/09/24 07/09/24 18:59 06:59 18:59 Intake Total 220 Balance 220 Intake: IV 100 Oral 120 Other: Voiding Method Toilet Toilet # Voids 2 2 - Labs CBC & Chem 7: 07/07/24 17:29 07/09/24 04:14 Labs: Abnormal Lab Results - Last 24 Hours (Table) 07/09/24 07/09/24 Range/Units 04:14 04:14 Carbon Dioxide 32 H (22-30) mmol/L BUN 21 H (9-20) mg/dL Glucose 309 H (74-99) mg/dL Hemoglobin A1c 13.1 H (<=6.0) %
[2024-07-09 13:52] VITALS: BP 143/89; PULSE 56
--- NOTE | 2024-07-09 15:21 | P.DS ---
Providers Date of admission: 07/07/24 19:06 Attending physician: Harris Coyne Consults: 07/07/24 19:05 Consult Physician Routine Consulting Provider: Talisha Ha Consult Reason/Comments: CP Do you want consulting provider notified?: Yes Primary care physician: Steve Osorio Hospital Course: Discharge diagnoses; Acute chest pain due to unstable angina Diabetes Mellitus type 2 with hyperglycemia Hyperlipidemia Hypertension Hospital course; This is a 53-year-old male with medical history significant for coronary artery disease with prior cardiac stenting, diabetes mellitus type 2, smoker. Patient comes in with complaints of chest pain ongoing over the last 3 days. Patient will require nitroglycerin and Cipro for pain with relief with this. Impending radiation down the left arm and associated nausea. Troponin level, negative x 3. Chest x-ray reveals low lung volumes with a generalized hazy appearance which could represent atelectasis versus pulmonary edema and correlate with a serum BNP. EKG reveals normal sinus rhythm heart rate of 65 with a right bundle branch block. Patient was admitted to the hospital with a cardiology consultation. Will be going for a cardiac catheterization today. 07/09/24 - Patient seen at bedside today. Cardiac catheterization was completed on 07/08 which showed a 60-70% stenosis in the ostium of the first diagonal branch and moderate instent restenosis of the mid diagonal branch. Significant disease in the small left circumflex with no progression of disease. Mildstent restenosis of the RCA in the left anterior descending artery. Cardiology recommends maximize medical therapy with the addition of Ranexa and following up with them outpatient in 1 week. Additionally patient's hemoglobin A1c was found to be 13.1 while present in the hospital, needs to follow-up with his primary care physician on optimizing medical management of his diabetes. PHYSICAL EXAMINATION: GENERAL: The patient is alert and oriented x3, not in any acute distress. Well developed, well nourished. HEENT: Pupils are round and equally reacting to light. EOMI. No scleral icterus. No conjunctival pallor. Normocephalic, atraumatic. No pharyngeal erythema. No th yromegaly. CARDIOVASCULAR: S1 and S2 present. No murmurs, rubs, or gallops. PULMONARY: Chest is clear to auscultation, no wheezing or crackles. ABDOMEN: Soft, nontender, nondistended, normoactive bowel sounds. No palpable organomegaly. MUSCULOSKELETAL: No joint swelling or deformity. EXTREMITIES: No cyanosis, clubbing, or pedal edema. NEUROLOGICAL: Gross neurological examination did not reveal any focal deficits. SKIN: No rashes. Dictation was produced using [employer] dictation software. please excuse any grammatical, word or spelling errors. Dr. Gilmar MD I have performed a history and physical examination and medical decision making of this patient, discussed the same with the the resident, and agree with the assessment and plan as written. I performed brief physical exam. Patient Condition at Discharge: Good Plan - Discharge Summary New Discharge Prescriptions: New Ranolazine [Ranexa] 500 mg PO Q12HR #60 tab Continue Atorvastatin [Lipitor] 80 mg PO DAILY glipiZIDE [Glucotrol] 10 mg PO BID Triamterene-Hctz 37.5-25Mg [Maxzide 37.5-25] 1 tab PO DAILY carvediloL [Coreg] 25 mg PO BID amLODIPine [Norvasc] 5 mg PO HS hydrALAZINE HCL [Apresoline] 50 mg PO BID oxyCODONE-APAP 10-325MG [Percocet 10-325 mg] 1 tab PO TID PRN PRN Reason: Pain metFORMIN HCL [Glucophage] 1,000 mg PO BID Losartan Potassium 100 mg PO DAILY Morphine Sulfate ER [Ms Contin] 15 mg PO Q12HR Tirzepatide [Mounjaro] 2.5 mg SQ MO Discharge Medication List Atorvastatin [Lipitor] 80 mg PO DAILY 11/11/18 [History] glipiZIDE [Glucotrol] 10 mg PO BID 01/05/19 [History] Triamterene-Hctz 37.5-25Mg [Maxzide 37.5-25] 1 tab PO DAILY 01/23/19 [History] carvediloL [Coreg] 25 mg PO BID 05/11/19 [History] amLODIPine [Norvasc] 5 mg PO HS 07/21/20 [History] hydrALAZINE HCL [Apresoline] 50 mg PO BID 07/21/20 [History] oxyCODONE-APAP 10-325MG [Percocet 10-325 mg] 1 tab PO TID PRN 07/21/20 [History] metFORMIN HCL [Glucophage] 1,000 mg PO BID 04/09/22 [History] Losartan Potassium 100 mg PO DAILY 05/13/23 [History] Morphine Sulfate ER [Ms Contin] 15 mg PO Q12HR 07/07/24 [History] Tirzepatide [Mounjaro] 2.5 mg SQ MO 07/07/24 [History] Ranolazine [Ranexa] 500 mg PO Q12HR #60 tab 07/09/24 [Rx] Follow up Appointment(s)/Referral(s): Steve Osorio MD [Primary Care Provider] - 1-2 days Talisha Ha MD [STAFF PHYSICIAN] - 07/16/24 3:15 pm Patient Instructions/Handouts: Chest Pain (DC), Heart Catheterization (DC) Discharge Disposition: HOME SELF-CARE
[2024-07-11 11:56] LABS: Glucose,Whole Blood 248 mg/dL (70-110)
[2024-07-11 11:57] LABS: Glucose,Whole Blood 215 mg/dL (70-110)
[2024-07-11 11:57] LABS: Glucose,Whole Blood 220 mg/dL (70-110)
[2024-07-11 11:57] LABS: Glucose,Whole Blood 313 mg/dL (70-110)
[2024-07-11 11:57] LABS: Glucose,Whole Blood 292 mg/dL (70-110)
[2024-07-11 11:57] LABS: Glucose,Whole Blood 314 mg/dL (70-110)
[2024-07-11 11:58] LABS: Glucose,Whole Blood 231 mg/dL (70-110)
== END 2024-07-09 16:00 | disposition home or self-care (01) ==
LOC: EC 17:05 → 6NMEDSUR 19:06
PROVIDERS: ADMIT Hospitalist; ATTEND Hospitalist
DX: R07.89 Other chest pain
CPT/HCPCS: 36415; 94760 ×2; 93005; 93306; 93458; 80053; 80048; 83735; 84484; 85025; 85610; 85730; 83036; 71046; G0378 ×3; C1769 ×2; C1894; J2250; J2270 ×3; J1644 ×3; J2003; J3010; Q9957; J3475; Q9967; 96365; 96375; 96376; 99285

== ENCOUNTER 2024-09-02 21:20 | Emergency (ER) | payer OTHER, BC ==
[2024-09-02 21:24] VITALS: RESP 18; TEMP 97.5
--- NOTE | 2024-09-02 21:39 | ED ---
Back Pain HPI - General Source: patient, RN notes reviewed, old records reviewed Limitations: no limitations - History of Present Illness MD Complaint: back pain, other (History of back infection) -: hour(s) Similar Symptoms Previously: Yes Place: home Severity: severe Severity scale (1-10): 8 Quality: sharp Consistency: constant Improves With: none Worsens With: none Context: unknown Associated Symptoms: denies other symptoms <Ramu Leal - Last Filed: 09/02/24 22:24> <Scarlett Reis - Last Filed: 09/05/24 13:25> - General Chief Complaint: Back Pain/Injury Stated Complaint: low back pain Time Seen by Provider: 09/02/24 21:26 - History of Present Illness Initial Comments: This is a 53-year-old male to ER for evaluation patient coming in with severe back pain back pain on the right side and he felt feverish patient is mostly here for pain, concern for back infection (Ramu Leal) - Related Data Home Medications Medication Instructions Recorded Confirmed Atorvastatin [Lipitor] 80 mg PO DAILY 11/11/18 07/07/24 glipiZIDE [Glucotrol] 10 mg PO BID 01/05/19 07/07/24 Triamterene-Hctz 37.5-25Mg 1 tab PO DAILY 01/23/19 07/07/24 [Maxzide 37.5-25] carvediloL [Coreg] 25 mg PO BID 05/11/19 07/07/24 amLODIPine [Norvasc] 5 mg PO HS 07/21/20 07/07/24 hydrALAZINE HCL [Apresoline] 50 mg PO BID 07/21/20 07/07/24 oxyCODONE-APAP 10-325MG [Percocet 1 tab PO TID PRN 07/21/20 07/07/24 10-325 mg] metFORMIN HCL [Glucophage] 1,000 mg PO BID 04/09/22 07/07/24 Losartan Potassium 100 mg PO DAILY 05/13/23 07/07/24 Morphine Sulfate ER [Ms Contin] 15 mg PO Q12HR 07/07/24 07/07/24 Tirzepatide [Mounjaro] 2.5 mg SQ MO 07/07/24 07/07/24 Previous Rx's Medication Instructions Recorded Ranolazine [Ranexa] 500 mg PO Q12HR #60 tab 07/09/24 Allergies Allergy/AdvReac Type Severity Reaction Status Date / Time vancomycin Allergy Rash/Hives Verified 09/02/24 21:24 Review of Systems ROS Other: All systems not noted in ROS Statement are negative. <Ramu Leal - Last Filed: 09/02/24 22:24> ROS Other: All systems not noted in ROS Statement are negative. <Scarlett Reis - Last Filed: 09/05/24 13:25> ROS Statement: Those systems with pertinent positive or pertinent negative responses have been documented in the HPI. Past Medical History Past Medical History: Chest Pain / Angina, Diabetes Mellitus, GERD/Reflux, Hypertension, Myocardial Infarction (SC), Syncope Additional Past Medical History / Comment(s): NIDDM type II, hiatal hernia, nephrolithiasis, chronic low back pain, bilateral leg numbness, R great toe diabetic foot ulcer, past left olecranon bursitis, osteomyelitis in L4-L5 w/abx treatment via PICC line (2017), managed by dr tran. Last Myocardial Infarction Date:: 2021 History of Any Multi-Drug Resistant Organisms: MRSA Date of last positivie culture/infection: 05/16/23 MDRO Source:: right Lower Leg Past Surgical History: Appendectomy, Cholecystectomy, Heart Catheterization, Heart Catheterization With Stent, Orthopedic Surgery Additional Past Surgical History / Comment(s): RENAL ANGIOGRAM 2005 for HTN, cardiac cath 2005, LT WRIST TENDON REPAIR 2013, RT ROTATOR CUFF REPAIR, bilateral knee arthroscopies, I&D L axillae, PICC LINES REMOVED. [address] Ha in December of 2018 Past Anesthesia/Blood Transfusion Reactions: No Reported Reaction Date of Last Stent Placement:: 12/2018 Past Psychological History: No Psychological Hx Reported Smoking Status: Current every day smoker Past Alcohol Use History: None Reported Past Drug Use History: None Reported - Past Family History Father Family Medical History: Coronary Artery Disease (CAD), Diabetes Mellitus, Hypertension Additional Family Medical History / Comment(s): pt. reports his father had a four vessel CABG Mother Family Medical History: Cancer, Hypertension Additional Family Medical History / Comment(s): LUNG CANCER(NON SMOKER) <Ramu Leal - Last Filed: 09/02/24 22:24> General Exam Limitations: no limitations General appearance: alert, in no apparent distress Head exam: Present: atraumatic, normocephalic, normal inspection Eye exam: Present: normal appearance, PERRL, EOMI. Absent: scleral icterus, conjunctival injection, periorbital swelling ENT exam: Present: normal exam, mucous membranes moist Neck exam: Present: normal inspection. Absent: tenderness, meningismus, lymphadenopathy Respiratory exam: Present: normal lung sounds bilaterally. Absent: respiratory distress, wheezes, rales, rhonchi, stridor Cardiovascular Exam: Present: regular rate, normal rhythm, normal heart sounds. Absent: systolic murmur, diastolic murmur, rubs, gallop, clicks GI/Abdominal exam: Present: soft, normal bowel sounds. Absent: distended, tenderness, guarding, rebound, rigid Extremities exam: Present: normal inspection, full ROM, normal capillary refill. Absent: tenderness, pedal edema, joint swelling, calf tenderness Back exam: Present: normal inspection Neurological exam: Present: alert, oriented X3, CN II-XII intact Psychiatric exam: Present: normal affect, normal mood Skin exam: Present: warm, dry, intact, normal color. Absent: rash <Ramu Leal - Last Filed: 09/02/24 22:24> Course <Ramu Leal - Last Filed: 09/02/24 22:24> Vital Signs 09/02/24 09/02/24 09/03/24 21:21 22:04 01:18 Temperature 97.5 F L Pulse Rate 72 83 72 Respiratory 18 18 18 Rate Blood Pressure 163/106 108/93 116/93 O2 Sat by Pulse 99 96 96 Oximetry - Reevaluation(s) Reevaluation #1: 09/02/24 22:03 Medical record is reviewed (Ramu Leal) Reevaluation #4: Was pt. sent in by a medical professional or institution (, PA, EMPLOYEE DEVELOPMENT MANAGER, urgent care, hospital, or senior care...) When possible be specific @ -no Did you speak to anyone other than the patient for history (EMS, parent, family, police, friend...)? What history was obtained from this source @ -no Did you review nursing and triage notes (agree or disagree)? Why? @ -agree Are old charts reviewed (outside hosp., previous admission, EMS record, old EKG, old radiological studies, urgent care reports/EKG's, senior care records)? Report findings @ -yes Differential Diagnosis (chest pain, altered mental status, abdominal pain women, abdominal pain men, vaginal bleeding, weakness, fever, dyspnea, syncope, headache, dizziness, GI bleed, back pain, seizure, CVA, palpatations, mental health, musculoskeletal)? @ -prior EKG interpreted by me (3pts min.). @ -yes X-rays interpreted by me (1pt min.). @ -yes negative for acute disease CT interpreted by me (1pt min.). @ -no U/S interpreted by me (1pt. min.). @ -no What testing was considered but not performed or refused? (CT, X-rays, U/S, labs)? Why? @ -none What meds were considered but not given or refused? Why? @ -none Did you discuss the management of the patient with other professionals (professionals i.e. , PA, EMPLOYEE DEVELOPMENT MANAGER, lab, RT, psych nurse, social science analyst, technical sales advisor, teacher, [employer] officer, briefcase sewer)? Give summary @ -no Was smoking cessation discussed for >3mins.? @ -no Was critical care preformed (if so, how long)? @ -no Were there social determinants of health that impacted care today? How? (Homelessness, low income, unemployed, alcoholism, drug addiction, transportation, low edu. Level, literacy, decrease access to med. care, [place] [facility], rehab)? @ -none Was there de-escalation of care discussed even if they declined (Discuss DNR or withdrawal of care, Hospice)? DNR status @ -no What co-morbidities impacted this encounter? (DM, HTN, Smoking, COPD, CAD, Cancer, CVA, ARF, Chemo, Hep., AIDS, mental health diagnosis, sleep apnea, morbid obesity)? @ -none Was patient admitted / discharged? Hospital course, mention meds given and route, prescriptions, significant lab abnormalities, going to OR and other pertinent info. @ - Undiagnosed new problem with uncertain prognosis? @ -no Drug Therapy requiring intensive monitoring for toxicity (Heparin, Nitro, Insulin, Cardizem)? @ -no Were any procedures done? @ -no Diagnosis/symptom? @ - Acute, or Chronic, or Acute on Chronic? @ -Acute Uncomplicated (without systemic symptoms) or Complicated (systemic symptoms)? @ -Complicated Side effects of treatment? @ -no Exacerbation, Progression, or Severe Exacerbation? @ -exacerbation Poses a threat to life or bodily function? How? (Chest pain, USA, SC, pneumonia, PE, COPD, DKA, ARF, appy, cholecystitis, CVA, Diverticulitis, Homicidal, Suicidal, threat to staff... and all critical care pts) @ -yes (Ramu Leal) Medical Decision Making - Lab Data Result diagrams: 09/02/24 21:48 09/02/24 21:48 <Ramu Leal - Last Filed: 09/02/24 22:24> - Lab Data Result diagrams: 09/02/24 21:48 09/02/24 21:48 <Scarlett Reis - Last Filed: 09/05/24 13:25> - Medical Decision Making Was patient admitted / discharged? Hospital course, mention meds given and route, prescriptions, significant lab abnormalities, going to OR and other pertinent info. @ -Hospital course Patient signed out to myself by outgoing physician. He is a 53-year-old gent with a history chronic back pain, did have a spinal epidural abscess in 2016 presenting today for 4 days of acute on chronic back pain. The patient denies recent trauma, no IV drug use, history of cancer, recent spinal injections or surgeries, no saddle anesthesia urinary incontinence or incontinence of stool. On my assessment patient is somewhat uncomfortable. States that pain medications as far as taking this pain from a 10 out of 10 to 6-7 out of 10. Will give additional 0.5 mg Dilaudid as patient is not opioid julian and likely opioid tolerant and will give 2 mg Zanaflex as patient describes muscle spasms. Patient has no midline spinal tenderness on my exam some right sided paraspinal muscle tenderness. Currently pending results of imaging and urinalysis. On my review of patient CT scans I do not see signs of widening of the epidural space,no signs of inflammation to indicate infection or fracture however will await radiologist read. Labs significant for minimally elevated lactate 2.4, otherwise no leukocytosis no elevation in CRP. CT abdomen pelvis and CT lumbar spine negative for acute process. I agree with radiologist interpretation. Urinalysis without signs of bladder infection. Updated patient to these findings. Patient's pain has improved with above medications. He is comfortable discharge home this point. In my medical judgment there is currently no evidence of an immediate life- threatening or surgical condition. Discharge is therefore indicated at this time. Discharge treatment instructions, follow up instructions, and appropriate emergency department return precautions were discussed with the patient and/or medical decision maker. Patient and/or medical decision maker expressed understanding of and agreed with the treatment plan, follow up instructions, and emergency department return precaution. All patient's and/or medical decision maker's questions were answered. The patient was advised that a small risk still exists that a serious condition could develop and was therefore instructed to return to the ED for any changes in symptoms, persistent symptoms, inability to obtain proper follow-up or for any further concerns. Patient received verbal and written instructions for this condition. Undiagnosed new problem with uncertain prognosis? @ -No Drug Therapy requiring intensive monitoring for toxicity (Heparin, Nitro, Insulin, Cardizem)? @ -No Were any procedures done? @ -No Diagnosis/symptom? @ -Back pain Acute, or Chronic, or Acute on Chronic? @ -Acute on chronic Uncomplicated (without systemic symptoms) or Complicated (systemic symptoms)? @ -Uncomplicated Side effects of treatment? @ -No Exacerbation, Progression, or Severe Exacerbation? @ -No Poses a threat to life or bodily function? How? (Chest pain, USA, SC, pneumonia, PE, COPD, DKA, ARF, appy, cholecystitis, CVA, Diverticulitis, Homicidal, Suicidal, threat to staff... and all critical care pts) @ -No (,Scarlett) - Lab Data Lab Results 09/02/24 09/02/24 09/02/24 Range/Units 21:48 21:48 21:48 WBC 7.6 (3.8-10.6) k/uL RBC 5.56 (4.30-5.90) m/uL Hgb 15.5 (13.0-17.5) gm/dL Hct 46.0 (39.0-53.0) % MCV 82.7 (80.0-100.0) fL MCH 27.8 (25.0-35.0) pg MCHC 33.6 (31.0-37.0) g/dL RDW 15.3 (11.5-15.5) % Plt Count 264 (150-450) k/uL MPV 8.4 Neutrophils % 55 % Lymphocytes % 26 % Monocytes % 6 % Eosinophils % 9 % Basophils % 1 % Neutrophils # 4.1 (1.3-7.7) k/uL Lymphocytes # 2.0 (1.0-4.8) k/uL Monocytes # 0.5 (0-1.0) k/uL Eosinophils # 0.7 (0-0.7) k/uL Basophils # 0.1 (0-0.2) k/uL ESR 28 H (0-20) mm/Hr PT 10.4 (10.0-12.5) sec INR 0.9 (<1.2) APTT 24.8 (22.0-30.0) sec Sodium 137 (137-145) mmol/L Potassium 3.9 (3.5-5.1) mmol/L Chloride 98 (98-107) mmol/L Carbon Dioxide 29 (22-30) mmol/L Anion Gap 10 mmol/L BUN 29 H (9-20) mg/dL Creatinine 1.40 H (0.66-1.25) mg/dL Est GFR (CKD-EPI)AfAm 66 (>60 ml/min/1.73 sqM) Est GFR (CKD-EPI)NonAf 57 (>60 ml/min/1.73 sqM) Glucose 155 H (74-99) mg/dL Lactic Ac Sepsis Rflx Plasma Lactic Acid Cb (0.7-2.0) mmol/L Calcium 9.8 (8.4-10.2) mg/dL Phosphorus 4.3 (2.5-4.5) mg/dL Magnesium 1.5 L (1.6-2.3) mg/dL Total Bilirubin 0.9 (0.2-1.3) mg/dL AST 27 (17-59) U/L ALT 20 (4-49) U/L Alkaline Phosphatase 79 (38-126) U/L C-Reactive Protein <0.5 (<1.0) mg/dL Total Protein 8.0 (6.3-8.2) g/dL Albumin 5.0 (3.5-5.0) g/dL Urine Color Urine Appearance (Clear) Urine pH (5.0-8.0) Ur Specific [place] (1.001-1.035) Urine Protein (Negative) Urine Glucose (UA) (Negative) Urine Ketones (Negative) Urine Blood (Negative) Urine Nitrite (Negative) Urine Bilirubin (Negative) Urine Urobilinogen (<2.0) mg/dL Ur Leukocyte Esterase (Negative) 09/02/24 09/02/24 09/03/24 Range/Units 21:48 22:33 00:25 WBC (3.8-10.6) k/uL RBC (4.30-5.90) m/uL Hgb (13.0-17.5) gm/dL Hct (39.0-53.0) % MCV (80.0-100.0) fL MCH (25.0-35.0) pg MCHC (31.0-37.0) g/dL RDW (11.5-15.5) % Plt Count (150-450) k/uL MPV Neutrophils % % Lymphocytes % % Monocytes % % Eosinophils % % Basophils % % Neutrophils # (1.3-7.7) k/uL Lymphocytes # (1.0-4.8) k/uL Monocytes # (0-1.0) k/uL Eosinophils # (0-0.7) k/uL Basophils # (0-0.2) k/uL ESR (0-20) mm/Hr PT (10.0-12.5) sec INR (<1.2) APTT (22.0-30.0) sec Sodium (137-145) mmol/L Potassium (3.5-5.1) mmol/L Chloride (98-107) mmol/L Carbon Dioxide (22-30) mmol/L Anion Gap mmol/L BUN (9-20) mg/dL Creatinine (0.66-1.25) mg/dL Est GFR (CKD-EPI)AfAm (>60 ml/min/1.73 sqM) Est GFR (CKD-EPI)NonAf (>60 ml/min/1.73 sqM) Glucose (74-99) mg/dL Lactic Ac Sepsis Rflx Y Plasma Lactic Acid Cb 2.4 H* (0.7-2.0) mmol/L Calcium (8.4-10.2) mg/dL Phosphorus (2.5-4.5) mg/dL Magnesium (1.6-2.3) mg/dL Total Bilirubin (0.2-1.3) mg/dL AST (17-59) U/L ALT (4-49) U/L Alkaline Phosphatase (38-126) U/L C-Reactive Protein (<1.0) mg/dL Total Protein (6.3-8.2) g/dL Albumin (3.5-5.0) g/dL Urine Color Colorless Urine Appearance Clear (Clear) Urine pH 5.5 (5.0-8.0) Ur Specific [place] 1.042 H (1.001-1.035) Urine Protein Negative (Negative) Urine Glucose (UA) Negative (Negative) Urine Ketones Negative (Negative) Urine Blood Negative (Negative) Urine Nitrite Negative (Negative) Urine Bilirubin Negative (Negative) Urine Urobilinogen <2.0 (<2.0) mg/dL Ur Leukocyte Esterase Negative (Negative) Disposition Is patient prescribed a controlled substance at d/c from ED?: No <Ramu Leal - Last Filed: 09/02/24 22:24> Is patient prescribed a controlled substance at d/c from ED?: No <Scarlett Reis - Last Filed: 09/05/24 13:25> Clinical Impression: Degenerative disc disease at L5-S1 level, Acute exacerbation of chronic low ba ck pain, Mid back pain, Lumbar radiculopathy Disposition: HOME SELF-CARE Condition: Fair Instructions (If sedation given, give patient instructions): Acute Low Back Pain (ED) Additional Instructions: Every disease is a spectrum and a small chance still exists that a serious condition could develop, for this reason, please monitor yourself closely for new, changing or worsening symptoms, symptoms that persist or worsen beyond [48 hours], change in quality of symptoms, [fever]/temperature 100.4 degrees or greater, inability to tolerate/keep down fluids or your medications, inability to follow up with outpatient providers as instructed and should you experience these symptoms or should you have any further concerns for your wellbeing please return to the ED or call 911 immediately. Return to the emergency department if you develop constipation, urinary retention, loss of bowel or bladder function, numbness or tingling into the rectum, groin, or develop fevers and chills PLEASE call your primary care physician as soon as possible to arrange / discuss plan for followup appointment. Appointment in the next 1-3 days is strongly encouraged if possible. PLEASE let us know here before you leave if there is anything further we can do to be of any assistance. Take care and feel Better! Referrals: Steve Osorio MD [Primary Care Provider] - 1-2 days
[2024-09-02 21:55] LABS: Basophils # (A) 0.1 k/uL (0-0.2); Basophils % (A) 1 %; Eosinophils # (A) 0.7 k/uL (0-0.7); Eosinophils % (A) 9 %; HGB 15.5 gm/dL (13.0-17.5); Lymphocytes % (A) 26 %; MCH 27.8 pg (25.0-35.0); MCHC 33.6 g/dL (31.0-37.0); MCV 82.7 fL (80.0-100.0); Mean Platelet Volume 8.4; Monocytes # (A) 0.5 k/uL (0-1.0); Monocytes % (A) 6 %; Neutrophils # (A) 4.1 k/uL (1.3-7.7); Neutrophils % (A) 55 %; Platelet Count 264 k/uL (150-450); RBC 5.56 m/uL (4.30-5.90); RDW 15.3 % (11.5-15.5); WBC 7.6 k/uL (3.8-10.6)
[2024-09-02] MEDS: MORPHINE SULFATE 4 MG/ML SYRINGE IV STA (21:57)
[2024-09-02] MEDS: ONDANSETRON 4 MG/2 ML VIAL IVP STA (21:57)
[2024-09-02] MEDS: SODIUM CHLORIDE 0.9% 1,000 ML IV STA ×2 (21:57→23:16)
[2024-09-02 22:09] LABS: ALT 20 U/L (4-49); AST 27 U/L (17-59); African American GFR (CKD) 66 (>60 ml/min/1.73 sqM); Alkaline Phosphatase 79 U/L (38-126); Anion Gap 10 mmol/L; Blood Urea Nitrogen 29 mg/dL (9-20); C Reactive Protein <0.5 mg/dL (<1.0); Calcium 9.8 mg/dL (8.4-10.2); Carbon Dioxide 29 mmol/L (22-30); Chloride 98 mmol/L (98-107); Glucose 155 mg/dL (74-99); Magnesium 1.5 mg/dL (1.6-2.3); Non-African American GFR(CKD) 57 (>60 ml/min/1.73 sqM); Phosphorus 4.3 mg/dL (2.5-4.5); Potassium 3.9 mmol/L (3.5-5.1); Sodium 137 mmol/L (137-145); Total Bilirubin 0.9 mg/dL (0.2-1.3)
[2024-09-02 22:20] LABS: INR 0.9 (<1.2); Partial Thromboplastin Time 24.8 sec (22.0-30.0); Prothrombin Time 10.4 sec (10.0-12.5)
[2024-09-02] MEDS: HYDROmorphone 1 MG/ML 1 ML SYRINGE IVP STA (23:17)
[2024-09-02] MEDS: KETOROLAC 15 MG/ML 1 ML VIAL IVP STA (23:17)
[2024-09-02] MEDS: MAGNESIUM SULFATE-D5W PMX 1 GM in DEXTROSE/WATER 1 100ML.BAG IVPB ONE (23:18)
[2024-09-02] MEDS: MAGNESIUM OXIDE 400 MG TAB PO STA (23:20)
--- NOTE | 2024-09-02 23:48 | CT ---
EXAM: CT Lumbar Spine With Intravenous Contrast CLINICAL HISTORY: ITS.REASON CT Reason: pain TECHNIQUE: Axial computed tomography images of the lumbar spine with intravenous contrast. CTDI is 46.7 mGy and DLP is 2357 mGy-cm. This CT exam was performed using one or more of the following dose reduction techniques: automated exposure control, adjustment of the mA and/or kV according to patient size, and/or use of iterative reconstruction technique. COMPARISON: No relevant prior studies available. FINDINGS: The vertebral body heights are maintained. The lumbar lordosis is preserved. There is no spondylolisthesis. The posterior elements are maintained, without evidence of acute fracture. The pedicles are intact. Multilevel lumbar spondylosis and degenerative disc disease. IMPRESSION: No acute fracture or subluxation of the lumbar spine.
--- NOTE | 2024-09-03 00:17 | CT ---
EXAM: CT Abdomen and Pelvis With Intravenous Contrast CLINICAL HISTORY: ITS.REASON CT Reason: pain TECHNIQUE: Axial computed tomography images of the abdomen and pelvis with intravenous contrast. CTDI is 46.7 mGy and DLP is 2357 mGy-cm. This CT exam was performed using one or more of the following dose reduction techniques: automated exposure control, adjustment of the mA and/or kV according to patient size, and/or use of iterative reconstruction technique. COMPARISON: No relevant prior studies available. FINDINGS: Lung bases: Unremarkable. No mass. No consolidation. ABDOMEN: Liver: Unremarkable. No mass. Gallbladder and bile ducts: Cholecystectomy. No ductal dilation. Pancreas: Unremarkable. No mass. No ductal dilation. Spleen: Unremarkable. No splenomegaly. Adrenals: Unremarkable. No mass. Kidneys and ureters: Renal cysts, measuring up to 4.8 cm. No hydronephrosis. Stomach and bowel: Diverticulosis, without acute diverticulitis. No small bowel obstruction. No free intraperitoneal air. PELVIS: Appendix: No findings to suggest acute appendicitis. Bladder: Unremarkable. No mass. Reproductive: Unremarkable as visualized. ABDOMEN and PELVIS: Intraperitoneal space: Unremarkable. No free air. No significant fluid collection. Bones/joints: No acute fracture. No dislocation. Soft tissues: Unremarkable. Vasculature: Unremarkable. No abdominal aortic aneurysm. Lymph nodes: Unremarkable. No enlarged lymph nodes. IMPRESSION: Diverticulosis, without acute diverticulitis. No small bowel obstruction. No free intraperitoneal air.
[2024-09-03] MEDS: HYDROmorphone 0.5 MG/0.5 ML SYRINGE IVP STA (00:41)
[2024-09-03] MEDS: tiZANidine 4 MG TAB PO STA (00:43)
[2024-09-03 00:52] LABS: Appearance,Urine Clear (Clear); Bilirubin,Urine Negative (Negative); Blood,Urine Negative (Negative); Color,Urine Colorless; Glucose,Urine (UA) Negative (Negative); Ketones,Urine Negative (Negative); Leukocyte Esterase,Urine Negative (Negative); Nitrite,Urine Negative (Negative); PH, Urine 5.5 (5.0-8.0); Protein,Urine Negative (Negative); Specific Gravity,Urine 1.042 (1.001-1.035); Urobilinogen,Urine <2.0 mg/dL (<2.0)
[2024-09-03 01:24] VITALS: BP 116/93; PULSE 72
[2024-09-03 03:26] LABS: Erythrocyte Sedimentation Rate 28 mm/Hr (0-20)
== END 2024-09-03 01:24 | disposition home or self-care (01) ==
LOC: EC 21:20
DX: M51.370 Other intervertebral disc degeneration, lumbosacral region with discogenic back pain only (principal); M54.16 Radiculopathy, lumbar region; G89.29 Other chronic pain; F17.200 Nicotine dependence, unspecified, uncomplicated; Z88.1 Allergy status to other antibiotic agents
CPT/HCPCS: 36415; 80053; 85652; 83605; 83735; 84100; 85025; 85610; 85730; 86140; 81003; 87040; 72132; 74177; 99284; 96365; 96375 ×4; 96376; 96361; J2270; J2405; J1171 ×2; J3475; J1885; Q9967

== ENCOUNTER 2024-10-24 16:48 | Inpatient (IN) | payer BC, OTHER ==
[2024-10-24 17:43] LABS: Basophils # (A) 0.1 k/uL (0-0.2); Basophils % (A) 1 %; Eosinophils # (A) 0.5 k/uL (0-0.7); Eosinophils % (A) 5 %; HCT 42.1 % (39.0-53.0); HGB 13.8 gm/dL (13.0-17.5); Lymphocytes # (A) 1.6 k/uL (1.0-4.8); Lymphocytes % (A) 18 %; MCH 27.9 pg (25.0-35.0); MCHC 32.7 g/dL (31.0-37.0); MCV 85.2 fL (80.0-100.0); Mean Platelet Volume 7.9; Monocytes # (A) 0.4 k/uL (0-1.0); Monocytes % (A) 4 %; Neutrophils # (A) 6.2 k/uL (1.3-7.7); Neutrophils % (A) 70 %; Platelet Count 222 k/uL (150-450); RBC 4.94 m/uL (4.30-5.90); WBC 8.9 k/uL (3.8-10.6)
[2024-10-24 17:54] LABS: ALT 15 U/L (4-49); AST 21 U/L (17-59); African American GFR (CKD) 70 (>60 ml/min/1.73 sqM); Albumin 4.2 g/dL (3.5-5.0); Alkaline Phosphatase 68 U/L (38-126); Anion Gap 11 mmol/L; Blood Urea Nitrogen 25 mg/dL (9-20); Calcium 9.3 mg/dL (8.4-10.2); Carbon Dioxide 27 mmol/L (22-30); Chloride 102 mmol/L (98-107); Glucose 198 mg/dL (74-99); Magnesium 1.5 mg/dL (1.6-2.3); Non-African American GFR(CKD) 61 (>60 ml/min/1.73 sqM); Potassium 3.7 mmol/L (3.5-5.1); Sodium 140 mmol/L (137-145); Total Bilirubin 0.5 mg/dL (0.2-1.3); Total Protein 6.6 g/dL (6.3-8.2)
[2024-10-24 17:56] LABS: INR 0.9 (<1.2); Partial Thromboplastin Time 22.6 sec (22.0-30.0); Prothrombin Time 10.5 sec (10.0-12.5)
--- NOTE | 2024-10-24 18:12 | ED ---
General Adult HPI - General Chief complaint: Chest Pain Stated complaint: Chest pain,CAROL Time Seen by Provider: 10/24/24 17:44 Source: patient Mode of arrival: wheelchair Limitations: no limitations - History of Present Illness Initial comments: Patient is a 53-year-old gentleman with a past medical history of ACS/CAD presenting today for left-sided chest pressure/sharp pains. Started this morning, felt like he had low sugar however continued throughout the day. He did take 1 sublingual nitroglycerin which slightly relieved his pain. He states he last had a cardiac cath about a month ago that showed complete occlusion of one of the vessels of the heart. Sees Dr. Ha and states that he was told at that point that addressing the occluded vessel may do more harm than good so that this point they would continue to monitor. Pain currently radiates to his left shoulder and jaw. Endorse associated shortness of breath and intermittent lightheadedness. Denies radiation to back. Denies fevers, endorses chills. Denies vomiting, nausea, cough, hemoptysis, melena or hematochezia, new numbness or focal weakness. - Related Data Home Medications Medication Instructions Recorded Confirmed Atorvastatin [Lipitor] 80 mg PO HS 11/11/18 10/24/24 glipiZIDE [Glucotrol] 10 mg PO BID 01/05/19 10/24/24 Triamterene-Hctz 37.5-25Mg 1 tab PO DAILY 01/23/19 10/24/24 [Maxzide 37.5-25] carvediloL [Coreg] 25 mg PO BID 05/11/19 10/24/24 amLODIPine [Norvasc] 5 mg PO HS 07/21/20 10/24/24 hydrALAZINE HCL [Apresoline] 50 mg PO BID 07/21/20 10/24/24 oxyCODONE-APAP 10-325MG [Percocet 1 tab PO TID 07/21/20 10/24/24 10-325 mg] metFORMIN HCL [Glucophage] 1,000 mg PO BID 04/09/22 10/24/24 Losartan Potassium 100 mg PO DAILY 05/13/23 10/24/24 Morphine Sulfate ER [Ms Contin] 15 mg PO HS 07/07/24 10/24/24 Amoxic-Pot Clav 875-125Mg 1 tab PO Q12HR 10/24/24 10/24/24 [Augmentin 875-125] Isosorbide Mononitrate ER [Imdur] 30 mg PO DAILY 10/24/24 10/24/24 Morphine Sulfate ER [Ms Contin] 15 mg PO DAILY PRN 10/24/24 10/24/24 Naloxone HCl [Narcan] 4 mg NASAL ONCE PRN 10/24/24 10/24/24 Nitroglycerin Sl Tabs [Nitrostat] 0.4 mg SL Q5M PRN 10/24/24 10/24/24 Tirzepatide [Mounjaro] 5 mg SQ MO 10/24/24 10/24/24 Allergies Allergy/AdvReac Type Severity Reaction Status Date / Time vancomycin Allergy Rash/Hives Verified 10/24/24 20:29 Review of Systems ROS Statement: Those systems with pertinent positive or pertinent negative responses have been documented in the HPI. ROS Other: All systems not noted in ROS Statement are negative. Past Medical History Past Medical History: Chest Pain / Angina, Diabetes Mellitus, GERD/Reflux, Hypertension, Myocardial Infarction (MA), Syncope Additional Past Medical History / Comment(s): NIDDM type II, hiatal hernia, nephrolithiasis, chronic low back pain, bilateral leg numbness, R great toe diabetic foot ulcer, past left olecranon bursitis, osteomyelitis in L4-L5 w/abx treatment via PICC line (2017), managed by dr tran. Last Myocardial Infarction Date:: 2021 History of Any Multi-Drug Resistant Organisms: MRSA Date of last positivie culture/infection: 05/16/23 MDRO Source:: right Lower Leg Past Surgical History: Appendectomy, Cholecystectomy, Heart Catheterization, Heart Catheterization With Stent, Orthopedic Surgery Additional Past Surgical History / Comment(s): RENAL ANGIOGRAM 2005 for HTN, cardiac cath 2005, LT WRIST TENDON REPAIR 2013, RT ROTATOR CUFF REPAIR, bilateral knee arthroscopies, I&D L axillae, PICC LINES REMOVED. [address] Ha in December of 2018 Past Anesthesia/Blood Transfusion Reactions: No Reported Reaction Date of Last Stent Placement:: 12/2018 Past Psychological History: No Psychological Hx Reported Smoking Status: Current every day smoker Past Alcohol Use History: None Reported Past Drug Use History: None Reported - Past Family History Father Family Medical History: Coronary Artery Disease (CAD), Diabetes Mellitus, Hypertension Additional Family Medical History / Comment(s): pt. reports his father had a four vessel CABG Mother Family Medical History: Cancer, Hypertension Additional Family Medical History / Comment(s): LUNG CANCER(NON SMOKER) General Exam - General Exam Comments Initial Comments: PE: CONSTITUTIONAL: [no apparent distress,though uncomfortable appearing ] SKIN: [warm, dry, no jaundice, hives or petechiae] EYES:[ pupils are equally round, extraocular movements intact without nystagmus, clear conjunctiva, non-icteric sclera] HENT: [normocephalic, atraumatic, moist mucus membranes, oropharynx clear without exudates] NECK: , [Full range of motion, normal appearance] PULMONARY: [clear to auscultation without wheezes, rhonchi, or rales, normal excursion, no accessory muscle use and no stridor] CARDIOVASCULAR:[ regular rate, rhythm, normal S1 and S2. No appreciated murmurs, rubs or gallops. Strong radial pulses with intact distal perfusion. No lower extremity edema] GASTROINTESTINAL: [soft, active bowel sounds throughout, non-tender, non- distended, no palpable masses, no rebound or guarding. No hepatosplenomegaly] GENITOURINARY: MUSCULOSKELETAL: [Extremities have no gross deformity, no edema, redness, or swelling. No calf swelling ] NEUROLOGIC: [_a/o x 3, GCS 15, normal mentation and speech. Moves all extremities x 4 without motor or sensory deficit] PSYCHIATRIC:[ _normal mood and affect, thought process is clear and linear] Limitations: no limitations Course Vital Signs 10/24/24 10/24/24 10/24/24 16:55 18:47 21:15 Temperature 97.9 F Pulse Rate 69 65 57 L Respiratory 18 15 17 Rate Blood Pressure 130/83 133/87 123/78 O2 Sat by Pulse 100 96 97 Oximetry 10/25/24 10/25/24 00:00 01:09 Temperature Pulse Rate 55 L 59 L Respiratory 17 18 Rate Blood Pressure 128/85 129/80 O2 Sat by Pulse 95 100 Oximetry EKG Findings - EKG Comments: EKG Findings:: Sinus rhythm, rate 60 bpm TX interval 188 ms QT/QTc 437/441 ms, normal axis, right bundle branch block, of note slight half millimeter aVR eleva tion lead aVR, questionable [address] depression in lead I, aVL, this was compared to EKG performed on 07/08/2024, these are similar to prior, no new ST elevations or depressions when compared to prior. Repeat EKG performed at 182, showed sinus rhythm, rate 65 beats minute TX interval 187 ms QRS duration 156 ms QT/QTc 438/449 ms, no significant changes from prior. EKG performed at 194 due to return of chest pain, showed sinus bradycardia rate 58 bpm TX interval 189 ms QRS duration 151 ms QT/QTc 428/424 ms left axis deviation no significant changes from first 2 EKGs Medical Decision Making - Medical Decision Making Was pt. sent in by a medical professional or institution (, PA, APPRENTICE STYLIST, urgent care, hospital, or [facility]...) When possible be specific @ -[No] Did you speak to anyone other than the patient for history (EMS, parent, family, police, friend...)? What history was obtained from this source @ -[No] Did you review nursing and triage notes (agree or disagree)? Why? @ -[I reviewed nursing and triage notes] Were old charts reviewed (outside hosp., previous admission, EMS record, old EKG, old radiological studies, urgent care reports/EKG's, [facility] records)? Report findings @ -Medical records reviewed reviewed last visible labor utilization superintendent report- Done 07/08/2024, showed 60 to 70% stenosis of the ostium of the first diagonal branch and moderate in-stent stenosis of the mid diagonal branch with significant disease in the small left circumflex with no progression of disease, mild in- stent restenosis of the RCA and left anterior descending with right dominance Differential Diagnosis (chest pain, altered mental status, abdominal pain women, abdominal pain men, vaginal bleeding, weakness, fever, dyspnea, syncope, head ache, dizziness, GI bleed, back pain, seizure, CVA, palpatations, mental health, musculoskeletal)? @ -Differential Chest Pain: Stable Angina, Unstable Angina, STEMI, NSTEMI pericarditis, pleurisy, ch ostochondirits, Pneumothorax, Musculoskeletal, Esophageal Spasm GERD, Cholecystitis, Pancreatitis, Zoster, this is not meant to be an all-inclusive list. EKG interpreted by me (3pts min.). @ -As above X-rays interpreted by me (1pt min.). @ -No cardiomegaly, consolidations or pleural effusions no pneumothorax CT interpreted by me (1pt min.). @ -None done U/S interpreted by me (1pt. min.). @ -None done What testing was considered but not performed or refused? (CT, X-rays, U/S, labs)? Why? @ -None What meds were considered but not given or refused? Why? @ -None Did you discuss the management of the patient with other professionals (professionals i.e. , PA, APPRENTICE STYLIST, lab, RT, psych nurse, social sciences instructor, hose wrapper, teacher, chief information officer, case coordinator)? Give summary @ -No Was smoking cessation discussed for >3mins.? @ -No Was critical care preformed (if so, how long)? @ -Yes, 35 minutes Were there social determinants of health that impacted care today? How? (Homelessness, low income, unemployed, alcoholism, drug addiction, transportation, low edu. Level, literacy, decrease access to med. care, group home, rehab)? @ -No Was there de-escalation of care discussed even if they declined (Discuss DNR or withdrawal of care, Hospice)? @ -No What co-morbidities impacted this encounter? (DM, HTN, Smoking, COPD, CAD, Cancer, CVA, ARF, Chemo, Hep., AIDS, mental health diagnosis, sleep apnea, morbid obesity)? @ -CAD, diabetes Was patient admitted / discharged? Hospital course, mention meds given and route, prescriptions, significant lab abnormalities, going to OR and other pertinent info. @Admission-pleasant 53-year-old gentleman presenting today for right sided sharp chest pains rating to his left shoulder blade. History ACS, states similar to prior heart attacks. Complete history and physical exam performed. Discussed with patient plan for comprehensive labs, EKG, chest x-ray, nitro, aspirin and morphine. Patient agreeable plan of care. Initial EKG did not appear to show any significant changes from prior or obvious STEMI. Repeat EKG will be performed if pain continues Labs and imaging were reviewed. Significant for magnesium of 1.5. Repletion ordered. Patient's pain did improve with administered medications however returned later and seems to come and go. Repeat EKG was performed that did not show any dynamic changes. Initial troponin within normal limits. Additional morphine and Nitropaste were ordered. Updated patient to findings and plan of care. Patient understanding and agreeable with plan. Plan for admission. Additionally out of concern for unstable angina heparin drip will be ordered. Case discussed [facility] kindly accepts patient for admission. Undiagnosed new problem with uncertain prognosis? @ -No Drug Therapy requiring intensive monitoring for toxicity (Heparin, Nitro, Insulin, Cardizem)? @ -No Were any procedures done? @ -No Diagnosis/symptom? @Unstable angina Acute, or Chronic, or Acute on Chronic? @Acute Uncomplicated (without systemic symptoms) or Complicated (systemic symptoms)? @ -Complicated Side effects of treatment? @ -No Exacerbation, Progression, or Severe Exacerbation? @ -No Poses a threat to life or bodily function? How? (Chest pain, USA, MA, pneumonia, PE, COPD, DKA, ARF, appy, cholecystitis, CVA, Diverticulitis, Homicidal, Suicidal, threat to staff... and all critical care pts) @Yes - Lab Data Result diagrams: 10/26/24 07:05 10/27/24 05:32 Lab Results 10/24/24 10/24/24 10/24/24 Range/Units 17:33 17:33 17:33 WBC 8.9 (3.8-10.6) k/uL RBC 4.94 (4.30-5.90) m/uL Hgb 13.8 (13.0-17.5) gm/dL Hct 42.1 (39.0-53.0) % MCV 85.2 (80.0-100.0) fL MCH 27.9 (25.0-35.0) pg MCHC 32.7 (31.0-37.0) g/dL RDW 14.0 (11.5-15.5) % Plt Count 222 (150-450) k/uL MPV 7.9 Neutrophils % 70 % Lymphocytes % 18 % Monocytes % 4 % Eosinophils % 5 % Basophils % 1 % Neutrophils # 6.2 (1.3-7.7) k/uL Lymphocytes # 1.6 (1.0-4.8) k/uL Monocytes # 0.4 (0-1.0) k/uL Eosinophils # 0.5 (0-0.7) k/uL Basophils # 0.1 (0-0.2) k/uL PT 10.5 (10.0-12.5) sec INR 0.9 (<1.2) APTT 22.6 (22.0-30.0) sec D-Dimer 0.39 (<0.60) mg/L FEU Sodium 140 (137-145) mmol/L Potassium 3.7 (3.5-5.1) mmol/L Chloride 102 (98-107) mmol/L Carbon Dioxide 27 (22-30) mmol/L Anion Gap 11 mmol/L BUN 25 H (9-20) mg/dL Creatinine 1.33 H (0.66-1.25) mg/dL Est GFR (CKD-EPI)AfAm 70 (>60 ml/min/1.73 sqM) Est GFR (CKD-EPI)NonAf 61 (>60 ml/min/1.73 sqM) Glucose 198 H (74-99) mg/dL Calcium 9.3 (8.4-10.2) mg/dL Magnesium 1.5 L (1.6-2.3) mg/dL Total Bilirubin 0.5 (0.2-1.3) mg/dL AST 21 (17-59) U/L ALT 15 (4-49) U/L Alkaline Phosphatase 68 (38-126) U/L Troponin I (0.000-0.034) ng/mL Total Protein 6.6 (6.3-8.2) g/dL Albumin 4.2 (3.5-5.0) g/dL 10/24/24 Range/Units 17:33 WBC (3.8-10.6) k/uL RBC (4.30-5.90) m/uL Hgb (13.0-17.5) gm/dL Hct (39.0-53.0) % MCV (80.0-100.0) fL MCH (25.0-35.0) pg MCHC (31.0-37.0) g/dL RDW (11.5-15.5) % Plt Count (150-450) k/uL MPV Neutrophils % % Lymphocytes % % Monocytes % % Eosinophils % % Basophils % % Neutrophils # (1.3-7.7) k/uL Lymphocytes # (1.0-4.8) k/uL Monocytes # (0-1.0) k/uL Eosinophils # (0-0.7) k/uL Basophils # (0-0.2) k/uL PT (10.0-12.5) sec INR (<1.2) APTT (22.0-30.0) sec D-Dimer (<0.60) mg/L FEU Sodium (137-145) mmol/L Potassium (3.5-5.1) mmol/L Chloride (98-107) mmol/L Carbon Dioxide (22-30) mmol/L Anion Gap mmol/L BUN (9-20) mg/dL Creatinine (0.66-1.25) mg/dL Est GFR (CKD-EPI)AfAm (>60 ml/min/1.73 sqM) Est GFR (CKD-EPI)NonAf (>60 ml/min/1.73 sqM) Glucose (74-99) mg/dL Calcium (8.4-10.2) mg/dL Magnesium (1.6-2.3) mg/dL Total Bilirubin (0.2-1.3) mg/dL AST (17-59) U/L ALT (4-49) U/L Alkaline Phosphatase (38-126) U/L Troponin I <0.012 (0.000-0.034) ng/mL Total Protein (6.3-8.2) g/dL Albumin (3.5-5.0) g/dL Disposition Clinical Impression: Unstable angina Disposition: ADMITTED IP TO THIS [facility] Condition: Stable
[2024-10-24] MEDS: ASPIRIN 81 MG PO STA (18:38)
[2024-10-24] MEDS: MORPHINE SULFATE 4 MG/ML SYRINGE IV STA (18:39)
[2024-10-24] MEDS: ONDANSETRON 4 MG/2 ML VIAL IVP STA ×2 (18:39→22:59)
[2024-10-24] MEDS: NITROGLYCERIN SL TABS 0.4 MG TAB SUBLINGUAL STA (18:40)
[2024-10-24] MEDS: MAGNESIUM SULFATE-D5W PMX 1 GM in DEXTROSE/WATER 1 100ML.BAG IVPB SCH (18:47)
--- NOTE | 2024-10-24 19:22 | XR ---
EXAMINATION TYPE: XR chest 2V DATE OF EXAM: 10/24/2024 7:08 PM COMPARISON: Chest radiographs from 07/07/2024 CLINICAL INDICATION: Male, 53 years old with history of Chest Pain; TECHNIQUE: XR chest 2V Frontal and lateral views of the chest. FINDINGS: Lungs/Pleura: There is no evidence of pleural effusion, focal consolidation, or pneumothorax. Pulmonary vascularity: Unremarkable. Heart/mediastinum: Cardiomediastinal silhouette is unremarkable. Musculoskeletal: No acute osseous pathology. IMPRESSION: No acute cardiopulmonary disease/process. [facility], , 10/24/2024 7:19 PM
[2024-10-24] MEDS: NITROGLYCERIN OINT 1 INCH/GM PACKET TOPICAL STA (19:49)
[2024-10-24] MEDS: MORPHINE SULFATE 4 MG/ML SYRINGE IVP STA (19:49)
[2024-10-24] MEDS: HEPARIN SODIUM 1,000 UN/ML (10ML VL) IV ONE (20:02)
[2024-10-24] MEDS: HEPARIN SOD,PORK IN 0.45% NACL 25,000 UNIT in 0.45% NACL 1 250ML.BAG IV SCH (20:03)
[2024-10-24] MEDS: NITROGLYCERIN-D5W PMX 50 MG in DEXTROSE/WATER 1 250ML.BAG IV ONE (21:13)
[2024-10-24] MEDS ORDERED: NITROGLYCERIN SL TABS 0.4 MG TAB SUBLINGUAL PRN (21:36)
[2024-10-24] MEDS ORDERED: ACETAMINOPHEN TAB 325 MG TAB PO PRN (22:18)
[2024-10-24] MEDS ORDERED: NALOXONE 0.4 MG/ML 1 ML VIAL IV PRN (22:18)
[2024-10-24] MEDS ORDERED: ONDANSETRON 4 MG/2 ML VIAL IVP PRN (22:19)
[2024-10-24] MEDS ORDERED: oxyCODONE-APAP 10-325MG 1 EACH TAB PO SCH (22:30)
[2024-10-24] MEDS: amLODIPine 5 MG TAB PO SCH (22:50)
[2024-10-24] MEDS: ATORVASTATIN 80 MG TAB PO SCH (22:50)
[2024-10-24] MEDS: MORPHINE SULFATE ER 15 MG TABLET PO SCH (22:51)
[2024-10-25] MEDS: MORPHINE SULFATE 4 MG/ML SYRINGE IV PRN (01:50)
[2024-10-25 01:54] LABS: Basophils # (A) 0.1 k/uL (0-0.2); Basophils % (A) 1 %; Eosinophils # (A) 0.5 k/uL (0-0.7); Eosinophils % (A) 6 %; HCT 43.7 % (39.0-53.0); HGB 13.8 gm/dL (13.0-17.5); Lymphocytes # (A) 1.9 k/uL (1.0-4.8); Lymphocytes % (A) 22 %; MCH 27.2 pg (25.0-35.0); MCHC 31.6 g/dL (31.0-37.0); MCV 86.2 fL (80.0-100.0); Mean Platelet Volume 7.8; Monocytes # (A) 0.4 k/uL (0-1.0); Monocytes % (A) 5 %; Neutrophils # (A) 5.9 k/uL (1.3-7.7); Neutrophils % (A) 66 %; Platelet Count 256 k/uL (150-450); RBC 5.07 m/uL (4.30-5.90); RDW 14.1 % (11.5-15.5); WBC 8.9 k/uL (3.8-10.6)
[2024-10-25] MEDS: DEXTROSE 5%-0.45% NACL 1,000 ML IV SCH (01:59)
[2024-10-25 02:11] LABS: Prothrombin Time 10.8 sec (10.0-12.5)
[2024-10-25] MEDS: HEPARIN SODIUM 1,000 UN/ML (10ML VL) IV PRN (02:30)
[2024-10-25 06:21] LABS: Glucose,Whole Blood 161 mg/dL (70-110)
[2024-10-25] MEDS: carvediloL 12.5 MG TAB PO SCH ×2 (08:41→20:58)
[2024-10-25] MEDS: glipiZIDE 10 MG TAB PO SCH (08:42)
[2024-10-25] MEDS: LOSARTAN 50 MG TAB PO SCH (08:42)
[2024-10-25] MEDS: hydrALAZINE HCL 50 MG TAB PO SCH (08:42)
[2024-10-25] MEDS: ASPIRIN 325 MG TAB PO SCH (08:42)
[2024-10-25] MEDS: ISOSORBIDE MONONITRATE ER 30 MG TAB.ER.24H PO SCH (08:42)
[2024-10-25 10:39] LABS: Chol/HDL Ratio 2.82 Ratio; LDL Cholesterol,Calculated 32.2 mg/dL (0.0-131.0)
--- NOTE | 2024-10-25 11:02 | P.CRDCN ---
History of Present Illness Consult date: 10/25/24 History of present illness: HISTORY OF PRESENTING ILLNESS: Patient is a 53-year-old male with past medical history of CAD status post multiple PCI. He presented to the hospital because of substernal chest pressure along with symptoms of dizziness Admission Cardiac Labs: Troponin x 3 negative, magnesium 1.5, BUN 25, creatinine 1.3, Hb 13.8, WBC 8.9 Admission testing: EKG shows sinus rhythm Q waves inferior lead, right middle branch block, nonspecific ST changes CXR does not show any significant consolidation or congestion Prior cardiac testing: Echo from July 2024 shows an EF of 55%, no major structural or valvular abnormality Cath from 04/2022 shows severe disease in first diagonal, patent stent in LAD and RCA, underwent successful PCI of first diagonal branch. Heart cath from 07/2024 shows 60 to 70% disease in ostium of first diagonal, moderate in-stent stenosis, mild in-stent stenosis of RCA significant disease and small left circumflex REVIEW OF SYSTEMS: 14 point review of system is negative except what is mentioned above in HPI. PHYSICAL EXAMINATION: Neck: Brisk carotid upstroke, no jugular venous distention. Lungs: Clear to auscultation. Heart: Regular rate and rhythm, S1-S2, , no murmur or rub. Abdomen: Soft nontender, positive bowel sounds. Extremities: No edema, intact distal pulses. Neuro: Alert, oritented, no focal deficits. Detailed neuro exam was not performed. ASSESSMENT: # Unstable angina # Lightheadedness and dizziness # Severe CAD status post multiple PCI. Moderate in-stent stenosis of first diagonal, mild in-stent stenosis of RCA, moderate to severe ostial diagonal 1 disease. # Type 2 diabetes # Dyslipidemia # Obesity # Hypertension PLAN: Optimize antianginal therapy. Increase Coreg to 37.5 twice daily. Increase it to 50 mg based on blood pressure and heart rate response Start Ranexa 1000 mg twice daily Increase Imdur to 60 mg daily Discontinue hydralazine Continue amlodipine 5 mg. Continue losartan 100 mg daily Continue aspirin 81 mg, start Plavix 75 mg, continue Lipitor Continue IV heparin drip for 48 hours Based on patient's symptoms we will evaluate if patient needs further repeat invasive intervention. Steven Magana MD, FACC, RPVI Thank you for allowing [facility] to participate in this patient's care. Feel free to reach out in case of any followup questions. Past Medical History Past Medical History: Chest Pain / Angina, Diabetes Mellitus, GERD/Reflux, Hypertension, Myocardial Infarction ([place]), Syncope Additional Past Medical History / Comment(s): NIDDM type II, hiatal hernia, nephrolithiasis, chronic low back pain, bilateral leg numbness, R great toe diabetic foot ulcer, past left olecranon bursitis, osteomyelitis in L4-L5 w/abx treatment via PICC line (2017), managed by dr tran. Last Myocardial Infarction Date:: 2021 History of Any Multi-Drug Resistant Organisms: MRSA Date of last positivie culture/infection: 05/16/23 MDRO Source:: right Lower Leg Past Surgical History: Appendectomy, Cholecystectomy, Heart Catheterization, Heart Catheterization With Stent, Orthopedic Surgery Additional Past Surgical History / Comment(s): RENAL ANGIOGRAM 2005 for HTN, cardiac cath 2005, LT WRIST TENDON REPAIR 2013, RT ROTATOR CUFF REPAIR, bilate ral knee arthroscopies, I&D L axillae, PICC LINES REMOVED. [address] Ha in December of 2018 Past Anesthesia/Blood Transfusion Reactions: No Reported Reaction Date of Last Stent Placement:: 12/2018 Past Psychological History: No Psychological Hx Reported Additional Psychological History / Comment(s): Pt resides with his spouse and 3 children. Smoking Status: Current every day smoker Past Alcohol Use History: None Reported Additional Past Alcohol Use History / Comment(s): reports quarter pack per day Past Drug Use History: None Reported - Past Family History Father Family Medical History: Coronary Artery Disease (CAD), Diabetes Mellitus, Hypertension Additional Family Medical History / Comment(s): pt. reports his father had a four vessel CABG Mother Family Medical History: Cancer, Hypertension Additional Family Medical History / Comment(s): LUNG CANCER(NON SMOKER) Medications and Allergies Home Medications Medication Instructions Recorded Confirmed Type Atorvastatin [Lipitor] 80 mg PO HS 11/11/18 10/24/24 History glipiZIDE [Glucotrol] 10 mg PO BID 01/05/19 10/24/24 History Triamterene-Hctz 37.5-25Mg 1 tab PO DAILY 01/23/19 10/24/24 History [Maxzide 37.5-25] carvediloL [Coreg] 25 mg PO BID 05/11/19 10/24/24 History amLODIPine [Norvasc] 5 mg PO HS 07/21/20 10/24/24 History hydrALAZINE HCL [Apresoline] 50 mg PO BID 07/21/20 10/24/24 History oxyCODONE-APAP 10-325MG [Percocet 1 tab PO TID 07/21/20 10/24/24 History 10-325 mg] metFORMIN HCL [Glucophage] 1,000 mg PO BID 04/09/22 10/24/24 History Losartan Potassium 100 mg PO DAILY 05/13/23 10/24/24 History Morphine Sulfate ER [Ms Contin] 15 mg PO HS 07/07/24 10/24/24 History Amoxic-Pot Clav 875-125Mg 1 tab PO Q12HR 10/24/24 10/24/24 History [Augmentin 875-125] Isosorbide Mononitrate ER [Imdur] 30 mg PO DAILY 10/24/24 10/24/24 History Morphine Sulfate ER [Ms Contin] 15 mg PO DAILY PRN 10/24/24 10/24/24 History Naloxone HCl [Narcan] 4 mg NASAL ONCE PRN 10/24/24 10/24/24 History Nitroglycerin Sl Tabs [Nitrostat] 0.4 mg SL Q5M PRN 10/24/24 10/24/24 History Tirzepatide [Mounjaro] 5 mg SQ MO 10/24/24 10/24/24 History Allergies Allergy/AdvReac Type Severity Reaction Status Date / Time vancomycin Allergy Rash/Hives Verified 10/24/24 20:29 Physical Exam Vitals: Vital Signs Temp Pulse Pulse Resp BP BP Pulse Ox 10/25/24 08:00 97.9 F 63 18 125/72 97 10/25/24 03:13 97.8 F 70 18 119/75 93 L 10/25/24 02:00 64 18 10/25/24 01:29 97.8 F 64 18 136/85 96 10/25/24 01:09 59 L 18 129/80 100 10/25/24 00:00 55 L 17 128/85 95 10/24/24 21:15 57 L 17 123/78 97 10/24/24 18:47 65 15 133/87 96 10/24/24 16:55 97.9 F 69 18 130/83 100 Intake and Output 10/24/24 10/25/24 10/25/24 22:59 06:59 14:59 Intake Total 73.827 Output Total 0 Balance 73.827 Intake: IV 10 Invasive Line 2 10 Intake, IV Titration 63.827 Amount Heparin Sod,Pork in 0.45% 63.827 NaCl 25,000 unit In 0.45 % NaCl 1 250ml.bag @ 10. 02 UNITS/KG/HR 9.999 mls/ hr IV .Q24H [facility] Rx#: [id number] Output: Urine 0 Other: Weight 99.79 kg 100.2 kg Results 10/25/24 01:25 10/24/24 17:33 Cardiac Enzymes 10/24/24 10/24/24 10/24/24 Range/Units 17:33 17:33 22:15 AST 21 (17-59) U/L Troponin I <0.012 0.012 (0.000-0.034) ng/mL 10/25/24 Range/Units 07:31 AST (17-59) U/L Troponin I <0.012 (0.000-0.034) ng/mL Coagulation 10/24/24 10/25/24 Range/Units 17:33 01:25 PT 10.5 10.8 (10.0-12.5) sec APTT 22.6 38.0 H (22.0-30.0) sec Lipids 10/25/24 Range/Units 01:25 Triglycerides 155.00 H (0.00-149.00) mg/dL Cholesterol 98.00 (0.00-200.00) mg/dL HDL Cholesterol 34.80 L (40.00-60.00) mg/dL Cholesterol/HDL Ratio 2.82 Ratio CBC 10/24/24 10/25/24 Range/Units 17:33 01:25 WBC 8.9 8.9 (3.8-10.6) k/uL RBC 4.94 5.07 (4.30-5.90) m/uL Hgb 13.8 13.8 (13.0-17.5) gm/dL Hct 42.1 43.7 (39.0-53.0) % Plt Count 222 256 (150-450) k/uL Comprehensive Metabolic Panel 10/24/24 Range/Units 17:33 Sodium 140 (137-145) mmol/L Potassium 3.7 (3.5-5.1) mmol/L Chloride 102 (98-107) mmol/L Carbon Dioxide 27 (22-30) mmol/L BUN 25 H (9-20) mg/dL Creatinine 1.33 H (0.66-1.25) mg/dL Glucose 198 H (74-99) mg/dL Calcium 9.3 (8.4-10.2) mg/dL AST 21 (17-59) U/L ALT 15 (4-49) U/L Alkaline Phosphatase 68 (38-126) U/L Total Protein 6.6 (6.3-8.2) g/dL Albumin 4.2 (3.5-5.0) g/dL Current Medications Generic Name Dose Route Start Last Admin Trade Name Freq PRN Reason Stop Dose Admin Acetaminophen 650 mg 10/24/24 22:18 Acetaminophen Tab 325 Mg Tab PO Q6HR PRN Mild Pain or Fever > 100.5 Amlodipine Besylate 5 mg 10/24/24 22:15 10/24/24 22:50 Amlodipine 5 Mg Tab PO 5 mg HS ROSY Administration Aspirin 81 mg 10/26/24 09:00 Aspirin 81 Mg PO DAILY [facility] Atorvastatin Calcium 80 mg 10/24/24 22:30 10/24/24 22:50 Atorvastatin 80 Mg Tab PO 80 mg HS ROSY Administration Carvedilol 37.5 mg 10/25/24 21:00 Carvedilol 12.5 Mg Tab PO BID [facility] Clopidogrel Bisulfate 75 mg 10/25/24 11:15 Clopidogrel 75 Mg Tab PO DAILY [facility] Glipizide 10 mg 10/25/24 09:00 10/25/24 08:42 Glipizide 10 Mg Tab PO 10 mg BID ROSY Administration Heparin Sodium (Porcine) 0 unit 10/24/24 19:49 10/25/24 02:30 Heparin Sodium 1,000 Un/Ml (10ml Vl) IV 2,494 unit PER PROTOCOL PRN Administration Low PTT Protocol Heparin Sodium/Sodium Chloride 250 mls @ 9.999 mls/hr 10/24/24 20:00 10/25/24 02:26 25,000 unit/ Sodium Chloride IV 12.02 units/kg/hr .Q24H [facility] 11.995 mls/hr Titration Protocol 10.02 UNITS/KG/HR Dextrose/Sodium Chloride 1,000 mls @ 70 mls/hr 10/24/24 22:30 10/25/24 01:59 Dextrose 5%-1/2ns Iv Soln IV 70 mls/hr .[id number] ROSY Administration Isosorbide Mononitrate 60 mg 10/26/24 09:00 Isosorbide Mononitrate Er 60 Mg Tab.Er.24h PO DAILY [facility] Losartan Potassium 100 mg 10/25/24 09:00 10/25/24 08:42 Losartan 50 Mg Tab PO 100 mg DAILY [facility] Administration Morphine Sulfate 15 mg 10/24/24 22:30 10/24/24 22:51 Morphine Sulfate Er 15 Mg Tablet PO 15 mg HS ROSY Administration Protocol Morphine Sulfate 4 mg 10/24/24 22:18 10/25/24 10:22 Morphine Sulfate 4 Mg/Ml Syringe IV 4 mg Q4HR PRN Administration Severe Pain (Scale 7 to 10) Naloxone HCl 0.2 mg 10/24/24 22:18 Naloxone 0.4 Mg/Ml 1 Ml Vial IV Q2M PRN Opioid Reversal Nitroglycerin 0.4 mg 10/24/24 21:36 Nitroglycerin Sl Tabs 0.4 Mg Tab SUBLINGUAL Q5M PRN Chest Pain Ondansetron HCl 4 mg 10/24/24 22:19 Ondansetron 4 Mg/2 Ml Vial IVP Q8HR PRN Nausea Oxycodone/Acetaminophen 1 each 10/24/24 22:28 Oxycodone-Apap 10-325mg 1 Each Tab PO TID PRN Breakthrough Pain Ranolazine 1,000 mg 10/25/24 11:00 Ranolazine 500 Mg Tab.Er.12h PO Q12HR [facility] Intake and Output 10/24/24 10/25/24 10/25/24 22:59 06:59 14:59 Intake Total 73.827 Output Total 0 Balance 73.827 Intake: IV 10 Invasive Line 2 10 Intake, IV Titration 63.827 Amount Heparin Sod,Pork in 0.45% 63.827 NaCl 25,000 unit In 0.45 % NaCl 1 250ml.bag @ 10. 02 UNITS/KG/HR 9.999 mls/ hr IV .Q24H [facility] Rx#: [id number] Output: Urine 0 Other: Weight 99.79 kg 100.2 kg 10/25/24 01:25 10/24/24 17:33
[2024-10-25] MEDS: RANOLAZINE 500 MG TAB.ER.12H PO SCH (11:34)
[2024-10-25 11:47] LABS: Glucose,Whole Blood 164 mg/dL (70-110)
[2024-10-25 11:56] LABS: Magnesium 1.9 mg/dL (1.6-2.3)
--- NOTE | 2024-10-25 13:21 | P.HPIM ---
History of Present Illness This is a pleasant 53 years old male with past medical history of multiple medical problems including coronary artery disease. He is status post multiple stents before Presents because of chest pain and near syncope. He describes chest pain as nonspecific in the middle of his chest radiating to the left neck that started yesterday morning it was severe but now is good. Associated with dizziness which is gone now. He describes dizziness as presyncope. Associated with little dyspnea which is also improved currently No chest pain no dyspnea now no coughing. No specific GI or symptoms. He has mild headache. He has chronic low back pain and weakness in his legs. He states his gait is abnormal side and baseline He denies smoking alcohol or illicit drugs. His resident director is Dr. Ha and his PCP Dr. Osorio Patient currently hemodynamically stable CBC is unremarkable Creatinine mildly elevated 1.3, baseline 0.9-1.1. INR is normal. Troponin x 3 were negative less than 0.012. D-dimer is negative at 0.39 EKG sinus bradycardia at [address]-T changes Chest x-ray is negative for acute process Review of Systems Review of systems CONSTITUTIONAL: No fever, no malaise, no fatigue. HEENT: No recent visual problems or hearing problems. Denied any sore throat. CARDIOVASCULAR: No orthopnea, PND, no palpitations, no syncope. PULMONARY: No shortness of breath, no cough, no hemoptysis. GASTROINTESTINAL: No diarrhea, no nausea, no vomiting, no abdominal pain. Normoactive bowel sounds. NEUROLOGICAL: No headaches, no weakness, no numbness. HEMATOLOGICAL: Denies any bleeding or petechiae. GENITOURINARY: Denies any burning micturition, frequency, or urgency. MUSCULOSKELETAL/RHEUMATOLOGICAL: Denies any joint pain, swelling, or any muscle pain. ENDOCRINE: Denies any polyuria or polydipsia. Past Medical History Past Medical History: Chest Pain / Angina, Diabetes Mellitus, GERD/Reflux, Hypertension, Myocardial Infarction ([place]), Syncope Additional Past Medical History / Comment(s): NIDDM type II, hiatal hernia, nephrolithiasis, chronic low back pain, bilateral leg numbness, R great toe diabetic foot ulcer, past left olecranon bursitis, osteomyelitis in L4-L5 w/abx treatment via PICC line (2018), managed by dr tran. Last Myocardial Infarction Date:: 2021 History of Any Multi-Drug Resistant Organisms: MRSA Date of last positivie culture/infection: 05/16/23 MDRO Source:: right Lower Leg Past Surgical History: Appendectomy, Cholecystectomy, Heart Catheterization, Heart Catheterization With Stent, Orthopedic Surgery Additional Past Surgical History / Comment(s): RENAL ANGIOGRAM 2005 for HTN, cardiac cath 2005, LT WRIST TENDON REPAIR 2013, RT ROTATOR CUFF REPAIR, bilateral knee arthroscopies, I&D L axillae, PICC LINES REMOVED. [address] Ha in December of 2018 Past Anesthesia/Blood Transfusion Reactions: No Reported Reaction Date of Last Stent Placement:: 12/2018 Past Psychological History: No Psychological Hx Reported Additional Psychological History / Comment(s): Pt resides with his spouse and 3 children. Smoking Status: Current every day smoker Past Alcohol Use History: None Reported Additional Past Alcohol Use History / Comment(s): reports quarter pack per day Past Drug Use History: None Reported - Past Family History Father Family Medical History: Coronary Artery Disease (CAD), Diabetes Mellitus, Hypertension Additional Family Medical History / Comment(s): pt. reports his father had a four vessel CABG Mother Family Medical History: Cancer, Hypertension Additional Family Medical History / Comment(s): LUNG CANCER(NON SMOKER) Medications and Allergies Home Medications Medication Instructions Recorded Confirmed Type Atorvastatin [Lipitor] 80 mg PO HS 11/11/18 10/24/24 History glipiZIDE [Glucotrol] 10 mg PO BID 01/05/19 10/24/24 History Triamterene-Hctz 37.5-25Mg 1 tab PO DAILY 01/23/19 10/24/24 History [Maxzide 37.5-25] carvediloL [Coreg] 25 mg PO BID 05/11/19 10/24/24 History amLODIPine [Norvasc] 5 mg PO HS 07/21/20 10/24/24 History hydrALAZINE HCL [Apresoline] 50 mg PO BID 07/21/20 10/24/24 History oxyCODONE-APAP 10-325MG [Percocet 1 tab PO TID 07/21/20 10/24/24 History 10-325 mg] metFORMIN HCL [Glucophage] 1,000 mg PO BID 04/09/22 10/24/24 History Losartan Potassium 100 mg PO DAILY 05/13/23 10/24/24 History Morphine Sulfate ER [Ms Contin] 15 mg PO HS 07/07/24 10/24/24 History Amoxic-Pot Clav 875-125Mg 1 tab PO Q12HR 10/24/24 10/24/24 History [Augmentin 875-125] Isosorbide Mononitrate ER [Imdur] 30 mg PO DAILY 10/24/24 10/24/24 History Morphine Sulfate ER [Ms Contin] 15 mg PO DAILY PRN 10/24/24 10/24/24 History Naloxone HCl [Narcan] 4 mg NASAL ONCE PRN 10/24/24 10/24/24 History Nitroglycerin Sl Tabs [Nitrostat] 0.4 mg SL Q5M PRN 10/24/24 10/24/24 History Tirzepatide [Mounjaro] 5 mg SQ MO 10/24/24 10/24/24 History Allergies Allergy/AdvReac Type Severity Reaction Status Date / Time vancomycin Allergy Rash/Hives Verified 10/24/24 20:29 Physical Exam Vitals: Vital Signs Temp Pulse Pulse Resp BP BP Pulse Ox 10/25/24 11:33 60 110/70 10/25/24 11:23 90 118/68 10/25/24 08:00 97.9 F 63 18 125/72 97 10/25/24 03:13 97.8 F 70 18 119/75 93 L 10/25/24 02:00 64 18 10/25/24 01:29 97.8 F 64 18 136/85 96 10/25/24 01:09 59 L 18 129/80 100 10/25/24 00:00 55 L 17 128/85 95 10/24/24 21:15 57 L 17 123/78 97 10/24/24 18:47 65 15 133/87 96 10/24/24 16:55 97.9 F 69 18 130/83 100 Intake and Output 10/24/24 10/25/24 10/25/24 22:59 06:59 14:59 Intake Total 73.827 220 Output Total 0 Balance 73.827 220 Intake: IV 10 10 Invasive Line 2 10 10 Intake, IV Titration 63.827 210 Amount Dextrose 5%-0.45% NaCl 1, 210 000 ml @ 70 mls/hr IV . [id number] [facility] Rx#:[id number] Heparin Sod,Pork in 0.45% 63.827 NaCl 25,000 unit In 0.45 % NaCl 1 250ml.bag @ 10. 02 UNITS/KG/HR 9.999 mls/ hr IV .Q24H [facility] Rx#: [id number] Output: Urine 0 Other: # Voids 2 Weight 99.79 kg 100.2 kg GENERAL: The patient is alert and oriented x3, not in any acute distress. Well developed, well nourished. HEENT: Pupils are round and equally reacting to light. EOMI. No scleral icterus. No conjunctival pallor. Normocephalic, atraumatic. No pharyngeal erythema. No thyromegaly. CARDIOVASCULAR: S1 and S2 present. No murmurs, rubs, or gallops. PULMONARY: Chest is clear to auscultation, no wheezing , no crackles. ABDOMEN: Soft, nontender, nondistended, normoactive bowel sounds. No palpable organomegaly. MUSCULOSKELETAL: No joint swelling or deformity. EXTREMITIES: No cyanosis, clubbing, or pedal edema. NEUROLOGICAL: Gross neurological examination did not reveal any focal deficits. SKIN: No rashes. no petechiae. Results CBC & Chem 7: 10/25/24 01:10/24/24 17:33 Labs: Abnormal Lab Results - Last 24 Hours (Table) 10/24/24 10/25/24 10/25/24 Range/Units 17:33 01: 01: APTT 38.0 H (22.0-30.0) sec BUN 25 H (9-20) mg/dL Creatinine 1.33 H (0.66-1.25) mg/dL Glucose 198 H (74-99) mg/dL POC Glucose (mg/dL) (70-110) mg/dL Magnesium 1.5 L (1.6-2.3) mg/dL Triglycerides 155.00 H (0.00-149.00) mg/dL HDL Cholesterol 34.80 L (40.00-60.00) mg/dL 10/25/24 10/25/24 10/25/24 Range/Units 06:19 10:44 11:46 APTT 51.9 H (22.0-30.0) sec BUN (9-20) mg/dL Creatinine (0.66-1.25) mg/dL Glucose (74-99) mg/dL POC Glucose (mg/dL) 161 H 164 H (70-110) mg/dL Magnesium (1.6-2.3) mg/dL Triglycerides (0.00-149.00) mg/dL HDL Cholesterol (40.00-60.00) mg/dL Thrombosis Risk Factor Assmnt - Choose All That Apply Any of the Below Risk Factors Present?: Yes Each Factor Represents 1 point: Age 41-60 years, Obesity (BMI >25) Other Risk Factors: No Other congenital or acquired thrombophilia - If yes, enter type in comment: No Thrombosis Risk Factor Assessment Total Risk Factor Score: 2 Thrombosis Risk Factor Assessment Level: Low Risk Assessment and Plan Assessment: Unstable angina associated with near syncope Mild acute kidney injury on chronic kidney disease Severe coronary artery disease status post multiple stents Chronic low back pain Hypertension Hyperlipidemia Diabetes mellitus Plan: Continue with dual antiplatelet therapy with aspirin and Plavix Increase Coreg Added Ranexa Continue with Norvasc and losartan 100 mg Continue with IV heparin x 48 hours Cardiology consult Recheck creatinine and labs Labs and medication were reviewed.. Continue same treatment. Continue with symptomatic treatment. Resume home medication. Monitor labs and vitals. DVT and GI prophylaxis. Further recommendations as per clinical course of the patient DVT prophylaxis: heparin GI Prophylaxis: Pepcid IV No known Prognosis is guarded
[2024-10-25] MEDS: oxyCODONE-APAP 10-325MG 1 EACH TAB PO PRN (13:33)
[2024-10-25] MEDS: ISOSORBIDE MONONITRATE ER 30 MG TAB.ER.24H PO STA (14:37)
[2024-10-25] MEDS: carvediloL 12.5 MG TAB PO STA (14:37)
[2024-10-25] MEDS: CLOPIDOGREL 75 MG TAB PO SCH (14:43)
[2024-10-25 16:43] LABS: Glucose,Whole Blood 227 mg/dL (70-110)
[2024-10-25] MEDS ORDERED: DEXTROSE 50% SYRINGE 50 ML IVP PRN ×2 (17:47)
[2024-10-25 20:29] LABS: Glucose,Whole Blood 268 mg/dL (70-110)
[2024-10-25] MEDS: FAMOTIDINE 20 MG/2 ML VIAL IV SCH (20:59)
[2024-10-25] MEDS: INSULIN ASPART (NovoLOG) 100 UNIT/ML VIAL SQ SCH (21:00)
[2024-10-26 05:49] LABS: Glucose,Whole Blood 202 mg/dL (70-110)
[2024-10-26 07:34] LABS: Basophils # (A) 0.1 k/uL (0-0.2); Basophils % (A) 1 %; Eosinophils # (A) 0.6 k/uL (0-0.7); Eosinophils % (A) 8 %; HCT 37.4 % (39.0-53.0); HGB 12.2 gm/dL (13.0-17.5); Lymphocytes # (A) 1.5 k/uL (1.0-4.8); Lymphocytes % (A) 22 %; MCH 28.1 pg (25.0-35.0); MCHC 32.7 g/dL (31.0-37.0); MCV 85.9 fL (80.0-100.0); Mean Platelet Volume 7.9; Monocytes # (A) 0.5 k/uL (0-1.0); Monocytes % (A) 7 %; Neutrophils # (A) 4.2 k/uL (1.3-7.7); Neutrophils % (A) 61 %; Platelet Count 187 k/uL (150-450); RBC 4.35 m/uL (4.30-5.90); WBC 6.9 k/uL (3.8-10.6)
[2024-10-26 08:12] LABS: African American GFR (CKD) >90 (>60 ml/min/1.73 sqM); Anion Gap 6 mmol/L; Blood Urea Nitrogen 16 mg/dL (9-20); Calcium 8.8 mg/dL (8.4-10.2); Carbon Dioxide 31 mmol/L (22-30); Chloride 100 mmol/L (98-107); Glucose 166 mg/dL (74-99); Non-African American GFR(CKD) 89 (>60 ml/min/1.73 sqM); Potassium 3.3 mmol/L (3.5-5.1); Sodium 137 mmol/L (137-145)
[2024-10-26] MEDS: ISOSORBIDE MONONITRATE ER 60 MG TAB.ER.24H PO SCH (09:26)
[2024-10-26] MEDS: ASPIRIN 81 MG PO SCH (09:26)
[2024-10-26 11:51] LABS: Glucose,Whole Blood 188 mg/dL (70-110)
--- NOTE | 2024-10-26 12:15 | P.PN ---
Subjective This is a pleasant 53 years old male with past medical history of multiple medical problems including coronary artery disease. He is status post multiple stents before Presents because of chest pain and near syncope. He describes chest pain as no nspecific in the middle of his chest radiating to the left neck that started yesterday morning it was severe but now is good. Associated with dizziness which is gone now. He describes dizziness as presyncope. Associated with little dyspnea which is also improved currently No chest pain no dyspnea now no coughing. No specific GI or symptoms. He has mild headache. He has chronic low back pain and weakness in his legs. He states his gait is abnormal side and baseline He denies smoking alcohol or illicit drugs. His attendant arcade is Dr. Ha and his PCP Dr. Osorio Patient currently hemodynamically stable CBC is unremarkable Creatinine mildly elevated 1.3, baseline 0.9-1.1. INR is normal. Troponin x 3 were negative less than 0.012. D-dimer is negative at 0.39 EKG sinus bradycardia at [address]-T changes Chest x-ray is negative for acute process 10/26 Patient still complains from chest pain and little headache. No dyspnea. Patient thinks he is not improving. I have lengthy discussion with the patient about his medical problems including multiple stents. Also case was discussed with cardiology team to adjust his medication. Patient is planning to go [facility] one month and he wants to get better Review of systems CONSTITUTIONAL: No fever, no malaise, no fatigue. HEENT: No recent visual problems or hearing problems. Denied any sore throat. CARDIOVASCULAR: No orthopnea, PND, no palpitations, no syncope. PULMONARY: No shortness of breath, no cough, no hemoptysis. GASTROINTESTINAL: No diarrhea, no nausea, no vomiting, no abdominal pain. Normoactive bowel sounds. NEUROLOGICAL: No headaches, no weakness, no numbness. HEMATOLOGICAL: Denies any bleeding or petechiae. Active Medications Generic Name Dose Route Start Last Admin Trade Name Freq PRN Reason Stop Dose Admin Acetaminophen 650 mg 10/24/24 22:18 Acetaminophen Tab 325 Mg Tab PO Q6HR PRN Mild Pain or Fever > 100.5 Amlodipine Besylate 5 mg 10/24/24 22:15 10/25/24 20:58 Amlodipine 5 Mg Tab PO 5 mg HS ROSY Administration Aspirin 81 mg 10/26/24 09:00 10/26/24 09:26 Aspirin 81 Mg PO 81 mg DAILY ROSY Administration Atorvastatin Calcium 80 mg 10/24/24 22:30 10/25/24 21:01 Atorvastatin 80 Mg Tab PO 80 mg HS ROSY Administration Carvedilol 50 mg 10/26/24 21:00 Carvedilol 12.5 Mg Tab PO BID ROSY Carvedilol 12.5 mg 10/26/24 12:13 Carvedilol 12.5 Mg Tab PO 10/26/24 12:14 ONCE STA Clopidogrel Bisulfate 75 mg 10/25/24 11:15 10/26/24 09:26 Clopidogrel 75 Mg Tab PO 75 mg DAILY ROSY Administration Dapagliflozin 5 mg 10/26/24 12:15 Dapagliflozin Propanediol 5 Mg Tablet PO DAILY [facility] Dextrose/Water 25 ml 10/25/24 17:47 Dextrose 50% Syringe 50 Ml IVP PER PROTOCOL PRN Hypoglycemia Protocol Dextrose/Water 50 ml 10/25/24 17:47 Dextrose 50% Syringe 50 Ml IVP PER PROTOCOL PRN Hypoglycemia Protocol Famotidine 20 mg 10/25/24 21:00 10/26/24 09:26 Famotidine 20 Mg/2 Ml Vial IV 20 mg Q12HR ROSY Administration Glipizide 10 mg 10/25/24 09:00 10/26/24 09:26 Glipizide 10 Mg Tab PO 10 mg BID ROSY Administration Heparin Sodium (Porcine) 0 unit 10/24/24 19:49 10/25/24 02:30 Heparin Sodium 1,000 Un/Ml (10ml Vl) IV 2,494 unit PER PROTOCOL PRN Administration Low PTT Protocol Heparin Sodium/Sodium Chloride 250 mls @ 9.999 mls/hr 10/24/24 20:00 10/26/24 11:14 25,000 unit/ Sodium Chloride IV 12.02 units/kg/hr .Q24H RSOY 11.995 mls/hr Administration Protocol 10.02 UNITS/KG/HR Insulin Aspart 0 unit 10/25/24 21:00 10/26/24 06:27 Insulin Aspart (Novolog) 100 Unit/Ml Vial SQ 4 unit ACHS ROSY Administration Protocol Isosorbide Mononitrate 120 mg 10/27/24 09:00 Isosorbide Mononitrate Er 60 Mg Tab.Er.24h PO DAILY [facility] Isosorbide Mononitrate 30 mg 10/26/24 12:13 Isosorbide Mononitrate Er 30 Mg Tab.Er.24h PO 10/26/24 12:14 ONCE STA Losartan Potassium 100 mg 10/25/24 09:00 10/26/24 09:26 Losartan 50 Mg Tab PO 100 mg DAILY ROSY Administration Morphine Sulfate 15 mg 10/24/24 22:30 10/25/24 20:59 Morphine Sulfate Er 15 Mg Tablet PO 15 mg HS ROSY Administration Protocol Morphine Sulfate 4 mg 10/24/24 22:18 10/26/24 11:13 Morphine Sulfate 4 Mg/Ml Syringe IV 4 mg Q4HR PRN Administration Severe Pain (Scale 7 to 10) Naloxone HCl 0.2 mg 10/24/24 22:18 Naloxone 0.4 Mg/Ml 1 Ml Vial IV Q2M PRN Opioid Reversal Nitroglycerin 0.4 mg 10/24/24 21:36 Nitroglycerin Sl Tabs 0.4 Mg Tab SUBLINGUAL Q5M PRN Chest Pain Ondansetron HCl 4 mg 10/24/24 22:19 Ondansetron 4 Mg/2 Ml Vial IVP Q8HR PRN Nausea Oxycodone/Acetaminophen 1 each 10/24/24 22:28 10/26/24 09:32 Oxycodone-Apap 10-325mg 1 Each Tab PO 1 each TID PRN Administration Breakthrough Pain Ranolazine 1,000 mg 10/25/24 11:00 10/26/24 09:27 Ranolazine 500 Mg Tab.Er.12h PO 1,000 mg Q12HR ROSY Administration Objective - Vital Signs Vital signs: Vital Signs Temp 98.2 F 10/26/24 11:39 Pulse 55 L 10/26/24 11:39 Resp 17 10/26/24 11:39 BP 124/77 10/26/24 11:39 Pulse Ox 95 10/26/24 11:39 FiO2 Intake & Output 10/25/24 10/26/24 10/26/24 18:59 06:59 18:59 Intake Total 377.339 20 256.097 Output Total 0 Balance 377.339 20 256.097 Weight 100.7 kg Intake: IV 20 20 10 Invasive Line 2 20 20 10 Intake, IV Titration 357.339 246.097 Amount Dextrose 5%-0.45% NaCl 1, 210 000 ml @ 70 mls/hr IV . [id number] ROSY Rx#:[id number] Heparin Sod,Pork in 0.45% 147.339 246.097 NaCl 25,000 unit In 0.45 % NaCl 1 250ml.bag @ 10. 02 UNITS/KG/HR 9.999 mls/ hr IV .Q24H ROSY Rx#: [id number] Output: Urine 0 Other: # Voids 2 - Exam GENERAL: The patient is alert and oriented x3, not in any acute distress. Well developed, well nourished. HEENT: Pupils are round and equally reacting to light. EOMI. No scleral icterus. No conjunctival pallor. Normocephalic, atraumatic. No pharyngeal erythema. No thyromegaly. CARDIOVASCULAR: S1 and S2 present. No murmurs, rubs, or gallops. PULMONARY: Chest is clear to auscultation, no wheezing , no crackles. ABDOMEN: Soft, nontender, nondistended, normoactive bowel sounds. No palpable organomegaly. MUSCULOSKELETAL: No joint swelling or deformity. EXTREMITIES: No cyanosis, clubbing, or pedal edema. NEUROLOGICAL: Gross neurological examination did not reveal any focal deficits. SKIN: No rashes. no petechiae. - Labs CBC & Chem 7: 10/26/24 07:05 10/26/24 07:05 Labs: Abnormal Lab Results - Last 24 Hours (Table) 10/25/24 10/25/24 10/25/24 Range/Units 07:31 16:41 20:27 Hgb (13.0-17.5) gm/dL Hct (39.0-53.0) % APTT (22.0-30.0) sec Potassium (3.5-5.1) mmol/L Carbon Dioxide (22-30) mmol/L Glucose (74-99) mg/dL POC Glucose (mg/dL) 227 H 268 H (70-110) mg/dL Hemoglobin A1c 7.8 H (<=6.0) % 10/26/24 10/26/24 10/26/24 Range/Units 05:48 07:05 07:05 Hgb 12.2 L (13.0-17.5) gm/dL Hct 37.4 L (39.0-53.0) % APTT 48.2 H (22.0-30.0) sec Potassium (3.5-5.1) mmol/L Carbon Dioxide (22-30) mmol/L Glucose (74-99) mg/dL POC Glucose (mg/dL) 202 H (70-110) mg/dL Hemoglobin A1c (<=6.0) % 10/26/24 10/26/24 Range/Units 07:05 11:49 Hgb (13.0-17.5) gm/dL Hct (39.0-53.0) % APTT (22.0-30.0) sec Potassium 3.3 L (3.5-5.1) mmol/L Carbon Dioxide 31 H (22-30) mmol/L Glucose 166 H (74-99) mg/dL POC Glucose (mg/dL) 188 H (70-110) mg/dL Hemoglobin A1c (<=6.0) %
[2024-10-26] MEDS: ISOSORBIDE MONONITRATE ER 30 MG TAB.ER.24H PO STA (12:35)
[2024-10-26] MEDS: carvediloL 12.5 MG TAB PO STA (12:35)
--- NOTE | 2024-10-26 13:44 | P.PN ---
Subjective Progress Note Date: 10/26/24 HISTORY OF PRESENTING ILLNESS: Patient is a 53-year-old male with past medical history of CAD status post multiple PCI. He presented to the hospital because of substernal chest pressure along with symptoms of dizziness Admission Cardiac Labs: Troponin x 3 negative, magnesium 1.5, BUN 25, creatinine 1.3, Hb 13.8, WBC 8.9 Admission testing: EKG shows sinus rhythm Q waves inferior lead, right middle branch block, nonspecific ST changes CXR does not show any significant consolidation or congestion Prior cardiac testing: Echo from July 2024 shows an EF of 55%, no major structural or valvular abno rmality Cath from 04/2022 shows severe disease in first diagonal, patent stent in LAD and RCA, underwent successful PCI of first diagonal branch. Heart cath from 07/2024 shows 60 to 70% disease in ostium of first diagonal, moderate in-stent stenosis, mild in-stent stenosis of RCA significant disease and small left circumflex Progress note 10/26/2024 Patient continues to have substernal chest pressure. He is denying intensification of his cardiac risk. Antianginal therapy including beta-suzie , nitrates PHYSICAL EXAMINATION: Neck: Brisk carotid upstroke, no jugular venous distention. Lungs: Clear to auscultation. Heart: Regular rate and rhythm, S1-S2, , no murmur or rub. Abdomen: Soft nontender, positive bowel sounds. Extremities: No edema, intact distal pulses. Neuro: Alert, oritented, no focal deficits. Detailed neuro exam was not performed. ASSESSMENT: # Unstable angina # Lightheadedness and dizziness # Severe CAD status post multiple PCI. Moderate in-stent stenosis of first d iagonal, mild in-stent stenosis of RCA, moderate to severe ostial diagonal 1 disease. # Type 2 diabetes # Dyslipidemia # Obesity # Hypertension PLAN: Optimize antianginal therapy. Increase Coreg to 37.5 twice daily. Increase it to 50 mg based on blood pressure and heart rate response Start Ranexa 1000 mg twice daily Increase Imdur to 60 mg daily Discontinue hydralazine Continue amlodipine 5 mg. Continue losartan 100 mg daily. Consider reducing these antihypertensives if BP is limiting factor to intensity antianginals. Continue aspirin 81 mg, start Plavix 75 mg, continue Lipitor Continue IV heparin drip for 48 hours Based on patient's symptoms we will evaluate if patient needs further repeat invasive intervention. Objective - Vital Signs Vital signs: Vital Signs Temp 98.2 F 10/26/24 11:39 Pulse 55 L 10/26/24 11:39 Resp 17 10/26/24 11:39 BP 124/77 10/26/24 11:39 Pulse Ox 95 10/26/24 11:39 FiO2 Intake & Output 10/25/24 10/26/24 10/26/24 18:59 06:59 18:59 Intake Total 377.339 20 256.097 Output Total 0 Balance 377.339 20 256.097 Weight 100.7 kg Intake: IV 20 20 10 Invasive Line 2 20 20 10 Intake, IV Titration 357.339 246.097 Amount Dextrose 5%-0.45% NaCl 1, 210 000 ml @ 70 mls/hr IV . [id number] ROSY Rx#:[id number] Heparin Sod,Pork in 0.45% 147.339 246.097 NaCl 25,000 unit In 0.45 % NaCl 1 250ml.bag @ 10. 02 UNITS/KG/HR 9.999 mls/ hr IV .Q24H [facility]Y Rx#: [id number] Output: Urine 0 Other: # Voids 2 - Labs CBC & Chem 7: 10/26/24 07:05 10/26/24 07:05 Labs: Abnormal Lab Results - Last 24 Hours (Table) 10/25/24 10/25/24 10/25/24 Range/Units 07:31 16:41 20:27 Hgb (13.0-17.5) gm/dL Hct (39.0-53.0) % APTT (22.0-30.0) sec Potassium (3.5-5.1) mmol/L Carbon Dioxide (22-30) mmol/L Glucose (74-99) mg/dL POC Glucose (mg/dL) 227 H 268 H (70-110) mg/dL Hemoglobin A1c 7.8 H (<=6.0) % 10/26/24 10/26/24 10/26/24 Range/Units 05:48 07:05 07:05 Hgb 12.2 L (13.0-17.5) gm/dL Hct 37.4 L (39.0-53.0) % APTT 48.2 H (22.0-30.0) sec Potassium (3.5-5.1) mmol/L Carbon Dioxide (22-30) mmol/L Glucose (74-99) mg/dL POC Glucose (mg/dL) 202 H (70-110) mg/dL Hemoglobin A1c (<=6.0) % 10/26/24 10/26/24 Range/Units 07:05 11:49 Hgb (13.0-17.5) gm/dL Hct (39.0-53.0) % APTT (22.0-30.0) sec Potassium 3.3 L (3.5-5.1) mmol/L Carbon Dioxide 31 H (22-30) mmol/L Glucose 166 H (74-99) mg/dL POC Glucose (mg/dL) 188 H (70-110) mg/dL Hemoglobin A1c (<=6.0) %
[2024-10-26] MEDS: DAPAGLIFLOZIN PROPANEDIOL 5 MG TABLET PO SCH (15:42)
[2024-10-26] MEDS ORDERED: Potassium Replacement Protocol 1 EACH MISC MISCELLANE PRN (15:56)
[2024-10-26 16:34] LABS: Glucose,Whole Blood 175 mg/dL (70-110)
[2024-10-26] MEDS: POTASSIUM CHLORIDE ER 20 MEQ TAB.ER PO SCH (17:55)
[2024-10-26 20:15] LABS: Glucose,Whole Blood 266 mg/dL (70-110)
[2024-10-26] MEDS: FAMOTIDINE 20 MG TAB PO SCH (21:20)
[2024-10-26] MEDS: carvediloL 12.5 MG TAB PO SCH (21:21)
[2024-10-27 06:01] LABS: Glucose,Whole Blood 122 mg/dL (70-110)
[2024-10-27] MEDS: ISOSORBIDE MONONITRATE ER 60 MG TAB.ER.24H PO SCH (08:51)
[2024-10-27] MEDS: LOSARTAN 25 MG TAB PO SCH (08:52)
[2024-10-27] MEDS ORDERED: NITROGLYCERIN SL TABS 0.4 MG TAB SUBLINGUAL PRN (09:26)
[2024-10-27] MEDS ORDERED: ALPRAZolam 0.25 MG TAB PO PRN (09:26)
[2024-10-27] MEDS ORDERED: ALPRAZolam 0.5 MG TAB PO PRN (09:26)
--- NOTE | 2024-10-27 11:09 | P.PN ---
Subjective This is a pleasant 53 years old male with past medical history of multiple medical problems including coronary artery disease. He is status post multiple stents before Presents because of chest pain and near syncope. He describes chest pain as no nspecific in the middle of his chest radiating to the left neck that started yesterday morning it was severe but now is good. Associated with dizziness which is gone now. He describes dizziness as presyncope. Associated with little dyspnea which is also improved currently No chest pain no dyspnea now no coughing. No specific GI or symptoms. He has mild headache. He has chronic low back pain and weakness in his legs. He states his gait is abnormal side and baseline He denies smoking alcohol or illicit drugs. His wild animal caretaker is Dr. Ha and his PCP Dr. Osorio Patient currently hemodynamically stable CBC is unremarkable Creatinine mildly elevated 1.3, baseline 0.9-1.1. INR is normal. Troponin x 3 were negative less than 0.012. D-dimer is negative at 0.39 EKG sinus bradycardia at [address]-T changes Chest x-ray is negative for acute process 10/26 Patient still complains from chest pain and little headache. No dyspnea. Patient thinks he is not improving. I have lengthy discussion with the patient about his medical problems including multiple stents. Also case was discussed with cardiology team to adjust his medication. [place] [facility] [place] [facility] [place] and he wants to get better 10/27 Patient still has the same chest pain Patient is going to cardiac cath tomorrow Case discussed with cardiology team and patient Objective - Vital Signs Vital signs: Vital Signs Temp 97.9 F 10/27/24 08:10 Pulse 55 L 10/27/24 08:10 Resp 17 10/27/24 08:10 BP 126/76 10/27/24 08:10 Pulse Ox 96 10/27/24 08:10 FiO2 Intake & Output 10/26/24 10/27/24 10/27/24 18:59 06:59 18:59 Intake Total 266.097 254.902 210 Balance 266.097 254.902 210 Weight 101.5 kg Intake: IV 20 20 10 Invasive Line 2 20 20 10 Intake, IV Titration 246.097 234.902 Amount Heparin Sod,Pork in 0.45% 246.097 234.902 NaCl 25,000 unit In 0.45 % NaCl 1 250ml.bag @ 10. 02 UNITS/KG/HR 9.999 mls/ hr IV .Q24H [facility] Rx#: [id number] Oral 200 Other: Voiding Method Toilet Toilet Urinal Urinal # Voids 2 1 1 - Exam GENERAL: The patient is alert and oriented x3, not in any acute distress. Well developed, well nourished. HEENT: Pupils are round and equally reacting to light. EOMI. No scleral icterus. No conjunctival pallor. Normocephalic, atraumatic. No pharyngeal erythema. No thyromegaly. CARDIOVASCULAR: S1 and S2 present. No murmurs, rubs, or gallops. PULMONARY: Chest is clear to auscultation, no wheezing , no crackles. ABDOMEN: Soft, nontender, nondistended, normoactive bowel sounds. No palpable organomegaly. MUSCULOSKELETAL: No joint swelling or deformity. EXTREMITIES: No cyanosis, clubbing, or pedal edema. NEUROLOGICAL: Gross neurological examination did not reveal any focal deficits. SKIN: No rashes. no petechiae. - Labs CBC & Chem 7: 10/26/24 07:05 10/27/24 05:32 Labs: Abnormal Lab Results - Last 24 Hours (Table) 10/26/24 10/26/24 10/26/24 Range/Units 11:49 16:32 20:14 APTT (22.0-30.0) sec POC Glucose (mg/dL) 188 H 175 H 266 H (70-110) mg/dL 10/27/24 10/27/24 Range/Units 05:32 05:59 APTT 39.3 H (22.0-30.0) sec POC Glucose (mg/dL) 122 H (70-110) mg/dL Assessment and Plan Assessment: Unstable angina associated with near syncope Mild acute kidney injury on chronic kidney disease Severe coronary artery disease status post multiple stents Chronic low back pain Hypertension Hyperlipidemia Diabetes mellitus Plan: Continue with dual antiplatelet therapy with aspirin and Plavix Increase Coreg Added Ranexa Cardiac cath on 10/28 Continue with Norvasc and losartan 100 mg Continue with IV heparin x 48 hours Cardiology consult Recheck creatinine and labs Labs and medication were reviewed.. Continue same treatment. Continue with symptomatic treatment. Resume home medication. Monitor labs and vitals. DVT and GI prophylaxis. Further recommendations as per clinical course of the patient DVT prophylaxis: heparin GI Prophylaxis: Pepcid IV No known Prognosis is guarded
[2024-10-27 11:14] LABS: Glucose,Whole Blood 156 mg/dL (70-110)
[2024-10-27] MEDS: POTASSIUM CHLORIDE ER 20 MEQ TAB.ER PO STA (12:21)
--- NOTE | 2024-10-27 14:11 | P.PN ---
Subjective HISTORY OF PRESENT ILLNESS: Patient is a 53-year-old male with past medical history of CAD status post multiple PCI. He presented to the hospital because of substernal chest pressure along with symptoms of dizziness Admission Cardiac Labs: Troponin x 3 negative, magnesium 1.5, BUN 25, creatinine 1.3, Hb 13.8, WBC 8.9 Admission testing: EKG shows sinus rhythm Q waves inferior lead, right middle branch block, nonspecific ST changes CXR does not show any significant consolidation or congestion Prior cardiac testing: Echo from July 2024 shows an EF of 55%, no major structural or valvular abnormality Cath from 04/2022 shows severe disease in first diagonal, patent stent in LAD and RCA, underwent successful PCI of first diagonal branch. Heart cath from 07/2024 shows 60 to 70% disease in ostium of first diagonal, moderate in-stent stenosis, mild in-stent stenosis of RCA significant disease and small left circumflex Progress note 10/26/2024 Patient continues to have substernal chest pressure. He is denying intensification of his cardiac risk. Antianginal therapy including beta- suzie, nitrates 10/27/2024 Patient examined this morning at the bedside. Patient continues to report chest discomfort at the time of examination. He is on IV heparin. He denies any shortness of breath. Vital signs are stable. Nursing, patient is having episodes of bradycardia down into the 30s40s. His carvedilol was increased to 50 mg twice a day yesterday. PHYSICAL EXAM: VITAL SIGNS: Reviewed. GENERAL: Well-developed in no acute distress. NECK: Supple. No JVD or thyromegaly LUNGS: Respirations even and unlabored. Lungs essentially clear to auscultation bilaterally. HEART: Regular rate and rhythm. S1 and S2 heard. EXTREMITIES: Normal range of motion. No clubbing or cyanosis. Peripheral pulses intact. No lower extremity edema ASSESSMENT: # Unstable angina # Lightheadedness and dizziness # Severe CAD status post multiple PCI. Moderate in-stent stenosis of first diagonal, mild in-stent stenosis of RCA, moderate to severe ostial diagonal 1 disease. # Type 2 diabetes # Dyslipidemia # Hypertension PLAN: Decrease carvedilol back to 25 mg twice a day Continue additional cardiac medications Continue IV heparin N.p.o. at midnight Patient to undergo cardiac catheterization tomorrow with Dr. Ha Further recommendations pending patient course Nurse practitioner note has been reviewed by physician. Signing provider agrees with the documented findings, assessment, and plan of care documented by IMAGING TECHNICIAN as a scribe. Objective - Vital Signs Vital signs: Vital Signs Temp 98.4 F 10/27/24 11:23 Pulse 53 L 10/27/24 11:23 Resp 17 10/27/24 11:23 BP 120/72 10/27/24 11:23 Pulse Ox 98 10/27/24 11:23 FiO2 Intake & Output 10/26/24 10/27/24 10/27/24 18:59 06:59 18:59 Intake Total 266.097 254.902 465.098 Balance 266.097 254.902 465.098 Weight 101.5 kg Intake: IV 20 20 10 Invasive Line 2 20 20 10 Intake, IV Titration 246.097 234.902 15.098 Amount Heparin Sod,Pork in 0.45% 246.097 234.902 15.098 NaCl 25,000 unit In 0.45 % NaCl 1 250ml.bag @ 10. 02 UNITS/KG/HR 9.999 mls/ hr IV .Q24H [facility] Rx#: [id number] Oral 440 Other: Voiding Method Toilet Toilet Urinal Urinal # Voids 2 1 1 - Labs CBC & Chem 7: 10/26/24 07:05 10/27/24 05:32 Labs: Abnormal Lab Results - Last 24 Hours (Table) 10/26/24 10/26/24 10/27/24 Range/Units 16:32 20:14 05:32 APTT 39.3 H (22.0-30.0) sec POC Glucose (mg/dL) 175 H 266 H (70-110) mg/dL 10/27/24 10/27/24 10/27/24 Range/Units 05:59 11:03 13:04 APTT 51.5 H (22.0-30.0) sec POC Glucose (mg/dL) 122 H 156 H (70-110) mg/dL
[2024-10-27 16:12] LABS: Glucose,Whole Blood 181 mg/dL (70-110)
[2024-10-27 19:53] LABS: Glucose,Whole Blood 235 mg/dL (70-110)
[2024-10-27] MEDS: carvediloL 12.5 MG TAB PO SCH (20:29)
[2024-10-27] MEDS ORDERED: carvediloL 12.5 MG TAB PO SCH (21:00)
[2024-10-28] MEDS: ASPIRIN 325 MG TAB PO STA (03:30)
[2024-10-28] MEDS: ATORVASTATIN 80 MG TAB PO STA (03:30)
[2024-10-28] MEDS: ASPIRIN 325 MG TAB PO ONE (05:44)
[2024-10-28] MEDS: ATORVASTATIN 80 MG TAB PO ONE (05:45)
[2024-10-28 06:00] LABS: Glucose,Whole Blood 192 mg/dL (70-110)
[2024-10-28] MEDS: SODIUM CHLORIDE 0.9% 1,000 ML IV ONE (07:33)
[2024-10-28] MEDS: HEPARIN SODIUM,PORCINE 10,000 UNIT in SODIUM CHLORIDE 0.9% 1,000 ML IRRIGATION PRN (07:33)
[2024-10-28] MEDS: HEPARIN SODIUM,PORCINE (1 ML) 2,500 UNIT in SODIUM CHLORIDE 0.9% 250 ML IRRIGATION PRN (07:33)
[2024-10-28] MEDS: fentaNYL (PF) 50 MCG/1 ML VIAL IVP ONE (07:44)
[2024-10-28] MEDS: LIDOCAINE 1% INJ 10MG/ML (20 ML MDV) SQ ONE ×3 (07:47→08:24)
[2024-10-28] MEDS: MIDAZOLAM 2 MG/2 ML VIAL IVP ONE (07:51)
[2024-10-28] MEDS: HEPARIN SODIUM 1,000 UN/ML (10ML VL) IVP ONE (08:05)
[2024-10-28] MEDS: IOPAMIDOL-370 100ML BTL INJ ONE ×2 (08:15→08:43)
[2024-10-28] MEDS ORDERED: NITROGLYCERIN SL TABS 0.4 MG TAB SUBLINGUAL PRN (08:53)
[2024-10-28] MEDS ORDERED: RX INFO: IV CONTRAST WAS GIVEN 1 EACH MISC MISCELLANE PRN (08:53)
[2024-10-28] MEDS ORDERED: MAG HYDROX/AL HYDROX/SIMETH 30 ML CUP PO PRN (08:53)
[2024-10-28] MEDS ORDERED: ATROPINE SULFATE 0.1 MG/ML 10ML SYRINGE IV PRN (08:53)
[2024-10-28] MEDS ORDERED: ZOLPIDEM 5 MG TAB PO PRN (08:53)
--- NOTE | 2024-10-28 09:02 | P.CARDCATH ---
Date of Procedure: 10/28/24 Description of Procedure: Cardiac Catheterization: The patient is a 53-year-old male with a known history of CAD, multivessel stenting, hypertension, hyperlipidemia who presented with symptoms of recurrent chest discomfort and no evidence of enzymatic changes. Because of his persistent symptoms further evaluation was needed. Recommendations were made regarding cardiac catheterization, the risks and the complications were discussed with the patient who is in full understanding and agreement. Procedure Description: Patient was brought to bottle label inspector in fasting semi-sedated state after receiving Fentanyl and Benadryl achieiving moderate conscious sedated state. Using Xylocaine Anesthesia and modified Seldinger technique, and with a micropuncture technique a 6-American sheath was introduced in the right femoral artery . Attempt to advance the wire in the right radial artery was unsuccessful suggestive of closure of the artery. Subsequently, selective coronary angiography was performed using a 6-American 4 bend Miri catheter. Multiple views of the coronary artery including hemiaxial views were obtained. The left Miri catheter was used to cross the aortic valve and LVEDP was calculated. PCI: After removing the catheters a 6 American CLS 3.5 guiding catheter was introduced and after cannulating the left main a 0.014 BMW J-wire with the help of a super cross 45 degree wire advanced and the wire was positioned in the distal diagonal branch. The microcatheter was removed and a guide liner 6 American was advanced subsequently a 2.5 x 12 mm trek balloon was advanced across the lesion and 1 inflation at 10 adriel was done. After the last inflation the balloon and the wire where withdrawn images were obtained and revealed stable successful angioplasty. Following that, catheter and sheath were removed. Hemostasis was obtained with deployment of Angio-Seal. There was no immediate complication. Patient was returned to room in stable condition. Of note, the patient received a total of 8000 units of intravenous heparin, he was continued on clopidogrel . He had no chest discomfort or EKG changes with the inflations Findings: Left main: This is a large size vessel, trifurcating into LAD, left circumflex and ramus intermedius, the left main has no obstructive disease. LAD: This is a large size vessel, giving rise to a moderately sized diagonal branch. The stented segment in the mid LAD is patent with 20% in-stent restenosis. The ostium of the first diagonal branch has a 60 to 70% stenosis with no progression. The stented segment in the mid distal diagonal branch has a 90% in-stent restenosis. The vessel beyond that is small in caliber Left circumflex: This is a small nondominant vessel giving rise to 2 obtuse marginal branch. The left circumflex has diffuse intimal disease with a area of 80% in the midsegment. RCA: This is a large dominant vessel, bifurcating distally to PDA and PLV the stented segment in the proximal, mid and distal RCA are patent with mild intimal in-stent restenosis of 20 to 30%. The ostium of the PDA has an 80% stenosis but it is small in caliber. Ramus intermedius this is a large size vessel that has no evidence of high-grade stenosis Left Ventriculogram: Not performed Hemodynamics: There was no gradient across the mitral valve, LVEDP was 16-18 mmHg Conclusion: 1. In-stent restenosis of the first diagonal branch 2. Mild intimal disease involving the stent of the LAD and the right coronary artery 3. Significant disease in the small left circumflex 4. Successful angioplasty stent restenosis of the diagonal branch with reduction of stenosis from 90% to less than 30%. The lesion in the ostium of the diagonal branch has not progressed in the last few years. Recommendations: The patient will continue on aspirin Plavix for 6 months in addition to the aggressive coronary risks modification including maintaining LDL to below 70 mg/dL.. The findings and the recommendations were discussed with the patient and he is in full understanding and agreement. Duration of sedation is 57 minutes.
[2024-10-28] MEDS: SODIUM CHLORIDE 0.9% 1,000 ML in EMPTY BAG 1 BAG IV SCH (09:21)
[2024-10-28] MEDS ORDERED: Magnesium Replacement Protocol 1 EACH MISC MISCELLANE PRN (09:58)
[2024-10-28] MEDS ORDERED: Potassium Replacement Protocol 1 EACH MISC MISCELLANE PRN (09:58)
--- NOTE | 2024-10-28 10:00 | P.PN ---
Subjective This is a pleasant 53 years old male with past medical history of multiple medical problems including coronary artery disease. He is status post multiple stents before Presents because of chest pain and near syncope. He describes chest pain as no nspecific in the middle of his chest radiating to the left neck that started yesterday morning it was severe but now is good. Associated with dizziness which is gone now. He describes dizziness as presyncope. Associated with little dyspnea which is also improved currently No chest pain no dyspnea now no coughing. No specific GI or symptoms. He has mild headache. He has chronic low back pain and weakness in his legs. He states his gait is abnormal side and baseline He denies smoking alcohol or illicit drugs. His space scheduler is Dr. Ha and his PCP Dr. Osorio Patient currently hemodynamically stable CBC is unremarkable Creatinine mildly elevated 1.3, baseline 0.9-1.1. INR is normal. Troponin x 3 were negative less than 0.012. D-dimer is negative at 0.39 EKG sinus bradycardia at [address]-T changes Chest x-ray is negative for acute process 10/26 Patient still complains from chest pain and little headache. No dyspnea. Patient thinks he is not improving. I have lengthy discussion with the patient about his medical problems including multiple stents. Also case was discussed with cardiology team to adjust his medication. [facility] in one month and he wants to get better 10/27 Patient still has the same chest pain Patient is going to cardiac cath tomorrow Case discussed with cardiology team and patient 10/28 Patient is s/p cardiac cath today: In-stent restenosis of the first diagonal branch, Successful angioplasty stent restenosis of the diagonal branch with reduction of stenosis from 90% to less than 30%. Postprocedure patient doing well with no chest pain or dyspnea Recheck potassium and magnesium and replace per protocol if low Continue with aspirin and Plavix upon discharge Objective - Vital Signs Vital signs: Vital Signs Temp 98.0 F 10/28/24 09:08 Pulse 62 10/28/24 09:08 Resp 17 10/28/24 09:08 BP 162/89 10/28/24 09:08 Pulse Ox 97 10/28/24 09:08 FiO2 Intake & Output 10/27/24 10/28/24 10/28/24 18:59 06:59 18:59 Intake Total 955.098 725.286 130 Balance 955.098 725.286 130 Weight 102 kg Intake: IV 20 20 130 Invasive Line 2 20 20 Intake, IV Titration 15.098 228.286 Amount Heparin Sod,Pork in 0.45% 15.098 228.286 NaCl 25,000 unit In 0.45 % NaCl 1 250ml.bag @ 10. 02 UNITS/KG/HR 9.999 mls/ hr IV .Q24H [facility] Rx#: [id number] Oral [id number] 477 Other: Voiding Method Toilet Toilet Urinal Urinal # Voids 3 1 - Exam GENERAL: The patient is alert and oriented x3, not in any acute distress. Well developed, well nourished. HEENT: Pupils are round and equally reacting to light. EOMI. No scleral icterus. No conjunctival pallor. Normocephalic, atraumatic. No pharyngeal erythema. No thyromegaly. CARDIOVASCULAR: S1 and S2 present. No murmurs, rubs, or gallops. PULMONARY: Chest is clear to auscultation, no wheezing , no crackles. ABDOMEN: Soft, nontender, nondistended, normoactive bowel sounds. No palpable organomegaly. MUSCULOSKELETAL: No joint swelling or deformity. EXTREMITIES: No cyanosis, clubbing, or pedal edema. NEUROLOGICAL: Gross neurological examination did not reveal any focal deficits. SKIN: No rashes. no petechiae. - Labs CBC & Chem 7: 10/26/24 07:05 10/27/24 05:32 Labs: Abnormal Lab Results - Last 24 Hours (Table) 10/27/24 10/27/24 10/27/24 Range/Units 11:03 13:04 16:09 APTT 51.5 H (22.0-30.0) sec POC Glucose (mg/dL) 156 H 181 H (70-110) mg/dL 10/27/24 10/28/24 Range/Units 19:52 05:59 APTT (22.0-30.0) sec POC Glucose (mg/dL) 235 H 192 H (70-110) mg/dL Assessment and Plan Assessment: Unstable angina associated with near syncope Mild acute kidney injury on chronic kidney disease Severe coronary artery disease status post multiple stents Chronic low back pain Hypertension Hyperlipidemia Diabetes mellitus Plan: Continue with dual antiplatelet therapy with aspirin and Plavix Increase Coreg Added Ranexa Cardiac cath on 10/28 Continue with Norvasc and losartan 100 mg Continue with IV heparin x 48 hours Cardiology consult Recheck creatinine and labs Labs and medication were reviewed.. Continue same treatment. Continue with symptomatic treatment. Resume home medication. Monitor labs and vitals. DVT and GI prophylaxis. Further recommendations as per clinical course of the patient DVT prophylaxis: heparin GI Prophylaxis: Pepcid IV No known Prognosis is guarded
[2024-10-28 11:52] LABS: Glucose,Whole Blood 156 mg/dL (70-110)
[2024-10-28 15:15] VITALS: BMI 28.0
[2024-10-28 15:23] LABS: Magnesium 1.6 mg/dL (1.6-2.3); Potassium 4.3 mmol/L (3.5-5.1)
[2024-10-28 16:44] LABS: Glucose,Whole Blood 138 mg/dL (70-110)
[2024-10-28] MEDS: HEPARIN SODIUM,PORCINE 5,000 UNIT/ML 1 ML VIAL SQ SCH (20:29)
[2024-10-28 20:42] LABS: Glucose,Whole Blood 199 mg/dL (70-110)
[2024-10-29 06:02] LABS: Glucose,Whole Blood 129 mg/dL (70-110)
[2024-10-29 07:07] LABS: African American GFR (CKD) 86 (>60 ml/min/1.73 sqM); Anion Gap 8 mmol/L; Blood Urea Nitrogen 15 mg/dL (9-20); Calcium 9.3 mg/dL (8.4-10.2); Carbon Dioxide 28 mmol/L (22-30); Chloride 104 mmol/L (98-107); Glucose 159 mg/dL (74-99); Non-African American GFR(CKD) 74 (>60 ml/min/1.73 sqM); Potassium 4.2 mmol/L (3.5-5.1); Sodium 140 mmol/L (137-145)
[2024-10-29 11:31] LABS: Glucose,Whole Blood 172 mg/dL (70-110)
[2024-10-29 11:46] VITALS: BP 180/93; PULSE 58; RESP 16; TEMP 97.8
--- NOTE | 2024-10-29 13:04 | P.PN ---
Subjective HISTORY OF PRESENT ILLNESS: Patient is a 53-year-old male with past medical history of CAD status post multiple PCI. He presented to the hospital because of substernal chest pressure along with symptoms of dizziness Admission Cardiac Labs: Troponin x 3 negative, magnesium 1.5, BUN 25, creatinine 1.3, Hb 13.8, WBC 8.9 Admission testing: EKG shows sinus rhythm Q waves inferior lead, right middle branch block, nonspecific ST changes CXR does not show any significant consolidation or congestion Prior cardiac testing: Echo from July 2024 shows an EF of 55%, no major structural or valvular abnormality Cath from 04/2022 shows severe disease in first diagonal, patent stent in LAD and RCA, underwent successful PCI of first diagonal branch. Heart cath from 07/2024 shows 60 to 70% disease in ostium of first diagonal, moderate in-stent stenosis, mild in-stent stenosis of RCA significant disease and small left circumflex Progress note 10/26/2024 Patient continues to have substernal chest pressure. He is denying intensification of his cardiac risk. Antianginal therapy including beta- suzie, nitrates 10/27/2024 Patient examined this morning at the bedside. Patient continues to report chest discomfort at the time of examination. He is on IV heparin. He denies any shortness of breath. Vital signs are stable. Nursing, patient is having episodes of bradycardia down into the 30s40s. His carvedilol was increased to 50 mg twice a day yesterday. 10/29/2024 Patient is status post cardiac catheterization yesterday with Dr. Ha. Patient underwent angioplasty of stent restenosis of the diagonal branch. Patient examined this morning at the bedside. Patient currently denies chest pain or pressure. He denies shortness of breath. Vital signs are stable. Patient is bradycardic with a heart rate this morning in the low 50s. PHYSICAL EXAM: VITAL SIGNS: Reviewed. GENERAL: Well-developed in no acute distress. NECK: Supple. No JVD or thyromegaly LUNGS: Respirations even and unlabored. Lungs essentially clear to auscultation bilaterally. HEART: Regular rate and rhythm. S1 and S2 heard. EXTREMITIES: Normal range of motion. No clubbing or cyanosis. Peripheral pulses intact. No lower extremity edema ASSESSMENT: # Unstable angina # Lightheadedness and dizziness # Severe CAD status post multiple PCI. Moderate in-stent stenosis of first diagonal, mild in-stent stenosis of RCA, moderate to severe ostial diagonal 1 disease., Status post cardiac catheterization with angioplasty of stent restenosis of the diagonal branch # Type 2 diabetes # Dyslipidemia # Hypertension PLAN: Decrease carvedilol to 12.5 mg twice a day Continue additional cardiac medications Patient is stable for discharge home today from a cardiac standpoint Patient to follow-up postdischarge with Dr. Ha Nurse practitioner note has been reviewed by physician. Signing provider agrees with the documented findings, assessment, and plan of care documented by [employer] as a scribe. Objective - Vital Signs Vital signs: Vital Signs Temp 97.8 F 10/29/24 08:45 Pulse 58 L 10/29/24 08:45 Resp 16 10/29/24 08:45 BP 180/93 10/29/24 08:45 Pulse Ox 96 10/29/24 08:45 FiO2 Intake & Output 10/28/24 10/29/24 10/29/24 18:59 06:59 18:59 Intake Total 866 10 10 Output Total 1075 Balance -209 10 10 Weight 102 kg 103.7 kg Intake: IV 150 10 10 Invasive Line 2 20 Invasive Line 3 10 10 Oral 716 Output: Urine 1075 Other: Voiding Method Toilet Toilet Urinal Urinal # Voids 1 - Labs CBC & Chem 7: 10/26/24 07:05 10/29/24 06:32 Labs: Abnormal Lab Results - Last 24 Hours (Table) 10/28/24 10/28/24 10/29/24 Range/Units 16:43 20:41 05:59 Glucose (74-99) mg/dL POC Glucose (mg/dL) 138 H 199 H 129 H (70-110) mg/dL 10/29/24 10/29/24 Range/Units 06:32 11:30 Glucose 159 H (74-99) mg/dL POC Glucose (mg/dL) 172 H (70-110) mg/dL
[2024-10-29] MEDS ORDERED: carvediloL 12.5 MG TAB PO SCH (17:30)
== END 2024-10-29 13:13 | disposition home or self-care (01) | DRG 251 ==
LOC: EC 16:48 → 3SCARD 21:55
PROVIDERS: ADMIT Hospitalist; ATTEND Hospitalist
PROC: B2111ZZ Fluoroscopy of Multiple Coronary Arteries using Low Osmolar Contrast (ICD-10-PCS; 2024-10-28)
PROC: B2151ZZ Fluoroscopy of Left Heart using Low Osmolar Contrast (ICD-10-PCS; 2024-10-28)
PROC: 02703ZZ Dilation of Coronary Artery, One Artery, Percutaneous Approach (ICD-10-PCS; principal; 2024-10-28 07:30)
PROC: 4A023N7 Measurement of Cardiac Sampling and Pressure, Left Heart, Percutaneous Approach (ICD-10-PCS; 2024-10-28 07:30)
DX: T82.855A Stenosis of coronary artery stent, initial encounter (principal); N17.9 Acute kidney failure, unspecified; I25.110 Atherosclerotic heart disease of native coronary artery with unstable angina pectoris; E11.22 Type 2 diabetes mellitus with diabetic chronic kidney disease; E66.9 Obesity, unspecified; I12.9 Hypertensive chronic kidney disease with stage 1 through stage 4 chronic kidney disease, or unspecified chronic kidney disease; N18.9 Chronic kidney disease, unspecified; Z68.28 Body mass index [BMI] 28.0-28.9, adult; G89.29 Other chronic pain; E78.5 Hyperlipidemia, unspecified; F17.210 Nicotine dependence, cigarettes, uncomplicated; Y71.2 Prosthetic and other implants, materials and accessory cardiovascular devices associated with adverse incidents; I25.2 Old myocardial infarction; Y83.1 Surgical operation with implant of artificial internal device as the cause of abnormal reaction of the patient, or of later complication, without mention of misadventure at the time of the procedure; Z79.84 Long term (current) use of oral hypoglycemic drugs; Z79.899 Other long term (current) drug therapy
CPT/HCPCS: 36415; 71046; 80048; 80053; 80061; 83036; 83735; 83880; 84132; 84484; 85025; 85379; 85610; 85730; 92920; 93005; 93458; 96365; 96366; 96367; 96368; 96375; 96376; 99291